=== PATIENT | female | born 1980 | race Caucasian/White ===

== ENCOUNTER 2016-03-26 03:15 | Day surgery (SDC) | payer OTHER ==
[2016-03-26] VITALS (14 sets, daily range): BP systolic 115–147; BP diastolic 55–87; PULSE 64–117; RESP 12–24; O2SAT 94–100
[~2016-03-26] VITALS: Ht 162.6 cm; Wt 114.5 kg
[~2016-03-26 03:15] MED LIST: AMT25T PO; ATOR80TA PO; CYCL10TA9 PO; HYDR-4003 PO; INSU100I SQ; INSU300I SQ; LEVO200T6 PO; LEVO50TA6 PO; LISI-567 PO; LORA-303 PO; METO50TA7 PO; PANT40TA3 PO; VENL150T3 PO
[2016-03-26 10:08] LABS: BASOPHILS % (AUTO) 0.3 % (0-3); EOSINOPHILS % (AUTO) 0.7 % (0-5); MONOCYTES % (AUTO) 4.6 % (4-12); Mean Corpuscular Hemoglobin 30.2 pg (27.0-35.0); Mean Corpuscular Volume 89.5 fL (81-100); NEUTROPHILS % (AUTO) 75.3 % (40-74); Platelet Count 291 bil/L (150-400)
[2016-03-26 10:23] LABS: INR 0.88 ratio
--- NOTE | 2016-03-26 10:53 | NUR ---
Admit [facility] Admitted to [facility] 7 about 929. VSS. Denies pain. IV started in left arm and labs sent. IVT called after 2 attempts on second IV. See EMR for admit info and assessment. Procedure and recovery reviewed and verbalizes understanding. 16 fr cordero placed per order and protocol. Tele ST. BG 301 stated was low at 70 around 0200 and had a few bites of ice cream which put her over 400. Took 15 units of short acting insulin, states is ok for now. Awaiting clinical lab specialist.
[2016-03-26] MEDS: 0.9% Sodium Chloride 1,000 ML IV SCH ×2 (11:41→17:55)
[2016-03-26] MEDS ORDERED: Heparin 5,000 Units/500 mL NS Premix IV ONE ×2 (11:42→14:39)
[2016-03-26] MEDS ORDERED: fentaNYL-PF 50 mCg/mL 2 mL Inj ONE ×5 (12:27→15:27)
[2016-03-26] MEDS ORDERED: Isoproterenol 200 mCg/50 mL D5W IV IV ONE (13:47)
[2016-03-26] MEDS ORDERED: Vancomycin 1,000 mg/200 mL D5W IV ONE (14:38)
[2016-03-26] MEDS ORDERED: 0.9% Sodium Chloride 0 ML ONE (14:39)
[2016-03-26] MEDS ORDERED: Bupivacaine-MPF 0.5% 30 mL Inj ONE (14:40)
[2016-03-26] MEDS ORDERED: 0.9% Sodium Chloride 250 ML ONE (14:40)
[2016-03-26] MEDS ORDERED: Vancomycin 1,000 mg Inj ONE (14:42)
[2016-03-26] MEDS ORDERED: Water for Injection 50 ML IV ONE (14:42)
[2016-03-26] MEDS ORDERED: Ondansetron 2 mg/mL 2 mL Inj IVPUSH PRN (15:40)
[2016-03-26] MEDS: HYDROcodone-APAP 5-325 mg Tablet PO PRN ×2 (16:19→20:53)
--- NOTE | 2016-03-26 16:47 | PROCED ---
[address] [address] PROCEDURE NOTE PATIENT: KAYLEE TURNER : 1980 MR#: [id number] ADMIT: 03/26/2016 JOB ID: [id number] DATE OF SERVICE: 03/26/2016 PREOPERATIVE DIAGNOSIS(ES): Drug refractory symptomatic paroxysmal supraventricular tachycardia. POSTOPERATIVE DIAGNOSIS(ES): 1. Atrioventricular node reciprocating tachycardia. 2. Two-to-one AV block. PROCEDURES PERFORMED: 1. Comprehensive electrophysiology study with left atrial pacing recording via the coronary sinus catheter. 2. Three-dimensional electroanatomic mapping using the CARTO 3 system. 3. Slow pathway modification (supraventricular tachycardia ablation). 4. Fluoroscopy. SURGEON: Lowell Del Valle MD PLASTICS SPREADING MACHINE OPERATOR: 1. Eddi Jansen PA-C 2. Victor Hugo Sanders. 3. Elena Camejo. SEDATION: Gentle bolus dosing of Versed and fentanyl were utilized for an appropriate level of sedation. INDICATION: The patient is a pleasant 36-year-old with a structurally normal heart and recurrent supraventricular tachycardia. After discussion of the risks and benefits of catheter-based mapping ablation, she opted to proceed. PROCEDURAL DESCRIPTION: Following informed consent, the patient was taken to the EP laboratory in a fasting nonsedated state where she was prepped in the usual sterile fashion. The bilateral groins were infiltrated with 1% lidocaine; then, using modified Seldinger technique, a deflectable decapolar catheter was advanced to the coronary sinus with the most proximal bipolar at the os of the sinus. A quadripolar Pooja catheter was advanced to the RV apex and a CRD 2 quadripolar catheter was advanced to the His position. A comprehensive electrophysiology study was undertaken with right atrial pacing and recording, right ventricular recording, His bundle recording, left atrial pacing and recording via the coronary sinus catheter. Retrograde conduction showed a concentric atrial activation pattern without retrograde jump and antegrade conduction showed an antegrade jump and ultimately induction in the patient's clinical tachycardia. This was a regular narrow tachycardia at a tachycardia cycle length of 288 msec, with a VA time of 0 msec induced with an antegrade jump. RV apical pacing lead to a long PPI minus TCL of 177 msec, with a pseudo VAAV response. This was consistent with AV lin reentrant tachycardia. We, therefore, prepared for slow pathway modification. An F curve 4 mm ablation catheter was brought to the field and used to create a three-dimensional electroanatomic map of the right atrium, tricuspid anulus, and triangle of Coe. Ablation lesions were placed at the base of the triangle of Coe in the region of the slow pathway, with the last burn ultimately leading to multiple conducted junctional beats. During the last burn there was one nonconducted beat. We came off immediately and despite this had complete heart block during which we monitored the patient for approximately an hour. Eventually she regained 2:1 conduction. We therefore decided to not proceed with pacemaker implant and just monitor her overnight and reassess her conduction in the morning. All catheters and sheaths were removed. Manual pressure was held for hemostasis. The patient was transferred to the [facility] and ultimately upstairs for monitoring. COMPLICATIONS: Potential AV block. ESTIMATED BLOOD LOSS: 10-15 cc. FINDINGS: 1. Baseline rhythm is sinus with an RR interval of 502 msec, ME 150 msec, QRS 87 msec, QT 442 msec. 2. Intracardiac intervals: AH interval 688 msec, HV 31 msec. Post ablation her AH is 79 msec and HV 38 msec. 3. Retrograde conduction: VA Wenckebach is seen. VA conduction is 1:1 down to 300 msec. Atrial activation was concentric. 4. Antegrade conduction: AV Wenckebach not attained due to the patient's going into clinical tachycardia. 5. Clinical tachycardia consistent with AV node reentrant tachycardia as described above, status post slow pathway modification. 6. AV conduction 2:1. IMPRESSION: Successful slow pathway modification with emergence of 2:1 block. PLAN: 1. Bed rest x4 hours. 2. Monitoring overnight. If no resumption of 1:1 conduction, we will recommend dual-chamber pacemaker implantation. 3. Discontinue all beta blockade. ATTENDING STATEMENT: Lowell Del Valle MD, electrophysiology attending, was present for and supervised/performed all aspects of this procedure.
--- NOTE | 2016-03-26 16:55 | NUR ---
Received Received from manager laboratory at 1600. VSS. manager laboratory reports as 2:1 conduction. Bilateral groins without bleeding or hematoma. C/O 9/10 back pain. Vicodin 2 po given and dozing intermittently. Thomason intact and draining hazy yellow urine with mucus threads. Yeasty red rash noted in groins and fold of pannus. Between 1615 and [address] in 1 teens. Continue to monitor per orders.
--- NOTE | 2016-03-26 18:31 | NUR ---
Recovery/Transfer Groins and VS remained stable. IVs saline locked. Taking po fluids well. Vicodin not very helpful. Dr. Del Valle notified and Morphine 2 mg IVP ordered and given with pain down to a more tolerable 5/10. Report called to Maite Urban RN. Transferred to 2026 via bed by staff at 1755 with all belongings in no distress. Family notified of room before they left. See EMR for further info and assessment.
--- NOTE | 2016-03-26 18:50 | NUR ---
Arrived She arrived from [facility] to [facility] 2026 about 1800. Report taken from Leana ELIZABETH in [facility]. She was placed on telemetry: Sinus rhythm 100s. She was c/o 6/10 pain in her back and bilateral groin sites from being on bedrest post-procedure. Gave her 600 mg of Ibuprofen. Her dinner arrived and she is enjoying it now. Bilateral groin sites dry and intact. She has some blood from old drainage. Told her we would get her all cleaned up once she is off of bedrest and able to get up and move around. She is requesting that the Thomason be taken out at that time. statement processor notified. Care continues.
[2016-03-26] MEDS ORDERED: Glucose 40% Oral Gel 15 Gm Tube PO PRN (19:05)
[2016-03-26] MEDS: Pantoprazole 40 mg ER24 Tablet PO SCH (20:54)
[2016-03-26] MEDS: Insulin GLARgine 100 Unit/mL Syringe SUBQ SCH (21:00)
[2016-03-26] MEDS: Insulin LISPRO 300 Unit/3 mL Inj SUBQ SCH (21:01)
[2016-03-26] MEDS: LORazepam 1 mg Tablet PO SCH (21:45)
[2016-03-27] VITALS (16 sets, daily range): BP systolic 99–140; BP diastolic 51–80; PULSE 48–119; RESP 14–20; O2SAT 95–100
[2016-03-27] MEDS: 0.9% Sodium Chloride 1,000 ML IV SCH ×5 (02:04→22:45)
[2016-03-27] MEDS: HYDROcodone-APAP 5-325 mg Tablet PO PRN ×2 (04:05→20:13)
--- NOTE | 2016-03-27 05:55 | NUR ---
Tachycardia / 2nd Degree HB /3rd Degree HB/ Bradycardia Tele ST with HR sustaining in the 110s since Pt returned from [facility] after a Cardiac ablation. Dr. Varma notified and aware of HR with no new orders at this time. Around 2339 HR dropped into the 50-60s Pt converted into 2nd degree HB with 2:1 conduction, then continued with HR in the 50s. Dr Varma notified of Telemetry changes. Temporary external pacer pads placed on Pt and connected to Zoll monitor in the room. Pt made NPO after 0200 for possible Pacemaker placement tomorrow 03/27/16. Then around 0226 Pt went into 3rd degree HB with HR 40-50s. IV NS @ 100 mls/hour restarted. VS hypotensive but stable, with SBPs in the 99-101's. Pt denies chest pain. Bilateral groin sites stable, pedal pulses palpable.
[2016-03-27] MEDS: LORazepam 1 mg Tablet PO SCH ×4 (07:41→20:12)
[2016-03-27] MEDS: Venlafaxine XR 75 mg ER24 Capsule PO SCH (07:41)
[2016-03-27] MEDS: Insulin LISPRO 300 Unit/3 mL Inj SUBQ SCH ×4 (07:47→20:15)
[2016-03-27] MEDS: Pantoprazole 40 mg ER24 Tablet PO SCH ×2 (10:55→20:31)
[2016-03-27] MEDS ORDERED: 0.9% Sodium Chloride 1,000 ML ONE (15:40)
[2016-03-27] MEDS ORDERED: 0.9% Sodium Chloride 250 ML ONE (15:40)
[2016-03-27] MEDS ORDERED: 0.9% Sodium Chloride 500 ML ONE (15:40)
[2016-03-27] MEDS ORDERED: Bupivacaine-MPF 0.5% 30 mL Inj ONE (15:41)
[2016-03-27] MEDS ORDERED: Heparin 1,000 Unit/mL 10 mL Inj ONE (15:41)
[2016-03-27] MEDS ORDERED: Heparin 5,000 Units/500 mL NS Premix IV ONE (15:42)
[2016-03-27] MEDS ORDERED: Vancomycin 1,000 mg/200 mL D5W IV ONE (15:49)
[2016-03-27] MEDS ORDERED: Vancomycin 1,000 mg Inj ONE (15:51)
[2016-03-27] MEDS ORDERED: fentaNYL-PF 50 mCg/mL 2 mL Inj ONE ×2 (16:35→17:29)
--- NOTE | 2016-03-27 18:41 | NUR ---
Fish Receiver/Retention She has been trying to urinate a couple of times today without success. Bladder scan about 1530 revealed 530 mls of urinary retention. She said she felt like she needed to urinate, but did not feel unusually uncomfortable. She was taken to slab lifting engineer at 1620 to get a pacemaker placed. Called down to [facility] to give report and asked if they could place a Thomason or talk to the Doctor about the retention while she was there. They said they would take care of it. Care continues.
--- NOTE | 2016-03-27 18:46 | NUR ---
Pt had not put out any urine. Around 1530 bladder scanned to volume of 530ml. Pt left for pacemaker at 1630. To drain urine during procedure. Addendum: 03/27/16 at 1848 by THOMPSON GAFFNEY CNA Amended: Links added.
--- NOTE | 2016-03-27 18:51 | OP ---
[address] [address] OPERATIVE REPORT PATIENT: KAYLEE TURNER : 1980 MR#: [id number] ADMIT: 03/26/2016 JOB ID: [id number] DATE OF SURGERY: 03/27/2016 PREOPERATIVE DIAGNOSIS(ES): Complete heart block. POSTOPERATIVE DIAGNOSIS(ES): Complete heart block. PROCEDURES PERFORMED: 1. Dual-chamber pacemaker implantation. 2. Left upper extremity venogram. 3. Fluoroscopy. SURGEON: Lowell Del Valle MD, electrophysiology. MANAGER OF INTERNATIONAL: Eddi Jansen PA-C. IMPLANTED DEVICES: 1. [employer] pulse generator, model TS3154, serial #[id number]. 2. Right atrial lead [employer] 2088TC 46 cm, serial #[id number]. 3. RV lead [employer] 2088TC 52 cm, serial # [id number]. ANESTHESIA: Bolus dosing of Versed and fentanyl were utilized for an appropriate level of sedation. INDICATIONS: The patient is a pleasant 36-year-old woman with a structurally normal heart and recurrent highly symptomatic SVT for which she underwent slow pathway modification yesterday. As a complication she developed complete heart block and comes down for a dual-chamber pacemaker implantation after discussion of the risks and benefits of implant. PROCEDURAL DESCRIPTION: Following informed signed consent, the patient was taken to the EP laboratory in the fasting nonsedated state, where she was prepped in the usual sterile fashion. The left infraclavicular region was infiltrated with 40 cc of a 50/50 mixture of bupivacaine and lidocaine. Once adequate anesthesia had been achieved, a 3 cm transverse incision was performed 2 cm below the clavicle. Dissection was carried down to the pectoralis fascia and a pocket was then fashioned using a combination of electrocautery and blunt dissection. Once adequate hemostasis had been achieved, attempts to access the left axillary vein were unsuccessful with a micropuncture needle. A left upper extremity venogram was performed. Under radiographic guidance, the vessel was cannulated to deploy a 0.035, 3 mm J guidewire. Attempts to recannulate the vessel were unsuccessful. I therefore double wired this access point to deploy two 0.035, 3-mm J-guidewires. Over the first of these, a 6-Singaporean tear-away sheath was advanced. Once the guidewire was removed, an active fixation wire was advanced to the RV outflow tract and ultimately the RV apex. The lead was affixed in position using associated active fixation screw. It was connected to the external analyzer and demonstrated appropriately sensed R waves, impedance, and capture threshold. The lead was checked to 10 V and there was no evidence of diaphragmatic stimulation. Attention was now paid to placement of the right atrial lead. Over the previously deployed J guidewire, another 6-Singaporean tear-away sheath was advanced. Once the guidewire was removed, an active fixation wire was advanced to the right atrial appendage and was affixed in position using associated active fixation screw. The lead was connected to the external analyzer and demonstrated appropriately sensed P waves, impedance, and capture threshold was checked to 10 V and there was no evidence of diaphragmatic stimulation. Once the position redundancy of the leads was confirmed with multiple fluoroscopic views, the leads were anchored to the prepectoralis fascia using their associated anchoring sleeves and sutures. The pocket was then copiously irrigated with antibiotic solution. The leads were connected to a generator and the generator was placed into the pocket and was affixed to the floor of the pocket using 1-0 Ti-Cron suture. The incision was then closed with running layers of absorbable suture. The wound was dressed with skin adhesive and a small dressing at the end the procedure. The needle, sponge, and instrument counts were all correct. COMPLICATIONS: None. BLOOD LOSS: Negligible. DEVICE MEASURED DATA: 1. Right atrial lead 2.1 mV, 490 ohms, 1.5 V at 0.4 msec. 2. RV lead greater than 12 mV, 660 ohms 0.5 V at 0.4 msec. 3. Final parameters DDD 60-130 beats per minute. IMPRESSION: Successful dual-chamber pacemaker implantation. PLAN: 1. Stat portable chest x-ray. 2. PA and lateral chest x-ray in the morning. 3. Device interrogation. 4. IV vancomycin through tomorrow. 5. Doxycycline 100 mg p.o. daily x7 days. 6. Wound check in one week. ATTENDING STATEMENT: Lowell Del Valle MD, electrophysiology, was present for and supervised/performed all aspects of this procedure.
--- NOTE | 2016-03-27 20:00 | DRSVH ---
PROCEDURE: X-RAY CHEST ONE VIEW, PORTABLE ([id number]) INDICATIONS: For new leads placed TECHNIQUE: One view of the chest was acquired. COMPARISON: [facility], CR, XR CHEST 1VW (PORTABLE), 10/12/2015, 11:23. FINDINGS: Surgical changes and devices: Dual-lead cardiac pacer Lungs and pleura: No pleural effusions or pneumothorax. Lungs are clear. Mediastinum: Mediastinal contours appear normal. Heart size is normal. Bones and chest wall: No suspicious bony lesions. Overlying soft tissues appear unremarkable. IMPRESSION: No acute disease. No pneumothorax Dictated by: Олег Ventura M.D. on 03/27/2016 at 19:57 Approved by: Олег Ventura M.D. on 03/27/2016 at 19:58
--- NOTE | 2016-03-27 20:01 | NUR ---
[facility] To [facility] 9 from pharmacy laboratory technician PM placement at 1845. No bleeding or hematoma at left chest incision. Transferred back to room 2026 by bed at 1945. Report to receiving RN.
[2016-03-27] MEDS: Insulin GLARgine 100 Unit/mL Syringe SUBQ SCH (20:13)
[2016-03-27] MEDS: MeTOProlol XL 25 mg ER24 Tablet PO SCH (22:25)
[2016-03-28 00:31] VITALS: BP 143/88; PULSE 117; RESP 20; O2SAT 97
[2016-03-28] MEDS: HYDROcodone-APAP 5-325 mg Tablet PO PRN ×3 (00:35→14:07)
[2016-03-28 04:21] VITALS: PULSE 106
[2016-03-28 04:32] VITALS: BP 142/84; PULSE 110; RESP 16; O2SAT 99
[2016-03-28] MEDS ORDERED: Vancomycin Inj 1,000 MG in IV Premix 1 EACH IV ONE (06:10)
[2016-03-28] MEDS: Pantoprazole 40 mg ER24 Tablet PO SCH (06:37)
[2016-03-28] MEDS: LORazepam 1 mg Tablet PO SCH ×2 (06:37→11:42)
--- NOTE | 2016-03-28 06:45 | NUR ---
Pain Pt reports 8/10 L chest (at pacemaker site) surgical pain s/p Pacemaker placement. IV and PO meds given as ordered. Reports mostly tolerable pain relief. WIll continue to monitor. Care ongoing
[2016-03-28 08:00] VITALS: PULSE 100
[2016-03-28 08:53] VITALS: BP 134/85; PULSE 101; RESP 18; O2SAT 97
[2016-03-28] MEDS: Venlafaxine XR 75 mg ER24 Capsule PO SCH (08:59)
[2016-03-28] MEDS: MeTOProlol XL 25 mg ER24 Tablet PO SCH (08:59)
--- NOTE | 2016-03-28 09:20 | PCM.DIMED ---
Discharge Instructions Date of Service Mar 28, 2016 Dates of Hospitalization Discharge Diagnosis Discharge Diagnosis PSVT Post procedural heart block Diabetes Dual Chamber pacemaker Diet Heart Healthy, Diabetic Activity Other (Do not extend left elbow high above shoulder for one month. Do not lift , push or pull more than 10 lbs for one week. Do not sit in a bath tub, hot tub or pool for one week to prevent infection.) Call your provider Fever or Chills, Bleeding, Excessive diarrhea Patient Instructions Follow-up in: 1 week Mid-level Provider (F9): Eddi Jansen PA-C Follow-up with Mid-level in: 4 weeks Eddi Jansen PA-C Mar 28, 2016 09:20
[2016-03-28] MEDS ORDERED: HYDR-4003 PO (09:24)
[2016-03-28] MEDS ORDERED: DOXY100C2 PO (09:24)
[2016-03-28] MEDS: Insulin LISPRO 300 Unit/3 mL Inj SUBQ SCH ×2 (09:37→11:47)
[2016-03-28] MEDS: 0.9% Sodium Chloride 1,000 ML IV SCH (09:55)
--- NOTE | 2016-03-28 10:00 | DIS ---
[address] [address] DISCHARGE SUMMARY PATIENT: KAYLEE TURNER : 1980 MR#: [id number] ADMIT: 03/26/2016 JOB ID: [id number] DIS: DATE: 03/28/2016 REASON FOR ADMISSION: The patient was admitted for EP study and SVT ablation. CHIEF COMPLAINT: Recurrent symptomatic rapid tachycardia with near syncope and chest discomfort. BRIEF HISTORY: The patient is a 35-year-old woman with a structurally normal heart who has been dealing with highly symptomatic SVT for several months now. Her episodes have led to four ER visits, and her tachycardia is a narrow QRS, short RP arrhythmia with heart rates greater than 220 beats per minute. At baseline, she has normal sinus rhythm on EKG without pre-excitation. Her episodes do respond to adenosine, and she has been lightheaded and near syncopal with chest discomfort during arrhythmia. She was informed of the ablation procedure and wished to proceed with that. COURSE IN HOSPITAL: The patient was admitted through the [facility] and taken to the label operator, where she underwent a diagnostic EP study which revealed dual AV lin physiology, and ablation procedure was undertaken. During the procedure, a few seconds after the final ablation, she suddenly went into complete heart block. This continued for about 2 hours, and then she regained 1:1 AV conduction. However, during the night that followed, she again went into complete heart block. On the second day, she underwent a dual-chamber pacemaker implantation without incident. Today, her chest x-ray shows good lead positions and no pneumothorax. Device evaluation shows good atrial and ventricular capture and sensing thresholds. Arrhythmia has not recurred. She has some discomfort at the pacemaker site and also on the left femoral venous access site. She has had no bleeding. The patient has been ambulatory and will go home this afternoon after her father finishes with his dialysis. DISPOSITION: The patient was discharged home in good condition with a followup appointment at the [facility] office in one week. She was asked not to extend her left arm high above her left shoulder for one month and not to lift, push, or pull more than 10 pounds with the left arm for one month. She will follow her diabetic diet and take medications as prescribed. DISCHARGE MEDICATIONS: 1. Doxycycline 100 mg daily for one week. 2. Hydrocodone/acetaminophen 5/325 mg, one tablet q.4 h. p.r.n. pain, quantity 20 with no refills. 3. Amitriptyline 25 mg q.h.s. 4. Atorvastatin 80 mg daily. 5. Cyclobenzaprine 10 mg t.i.d. 6. Insulin NovoLog U-100 taken as directed. 7. Insulin glargine 300 units/mL, 50 units subcu at h.s. 8. Levothyroxine 200 mcg tablet once daily and levothyroxine 50 mcg tablet once daily together. 9. Lisinopril 20 mg daily. 10. Lorazepam 1 mg q.i.d. p.r.n. anxiety. 11. Pantoprazole 40 mg b.i.d. 12. Venlafaxine ER 150 mg daily. 13. Metoprolol has been stopped. FINAL DIAGNOSES: 1. Paroxysmal supraventricular tachycardia. 2. Postprocedural heart block. 3. Dual-chamber pacemaker implant. 4. Diabetes mellitus.
[2016-03-28 12:06] VITALS: BP 129/84; PULSE 103; RESP 18; O2SAT 96
--- NOTE | 2016-03-28 14:04 | DRSVH ---
PROCEDURE: X-RAY CHEST, TWO VIEWS ([id number]) INDICATIONS: For new lead placement TECHNIQUE: 2 views of the chest were acquired. COMPARISON: [facility], CR, XR CHEST 1VW (PORTABLE), 03/27/2016, 19:08. FINDINGS: Surgical changes and devices: Stable positioning of dual chamber left cardiac pacer. Lungs and pleura: No pleural effusions or pneumothorax. Lungs are clear. Mediastinum: Mediastinal contours are normal. Heart size is normal. Bones and chest wall: No suspicious bony abnormalities. Soft tissues appear unremarkable. IMPRESSION: Stable chest post pacer placement. Dictated by: Farhan Barrera RRA Interpreted: Lauren Garcia MD on 03/28/2016 at 14:03 Transcribed by: BUCK on 03/28/2016 at 14:03 Approved by: Lauren Garcia MD, PhD on 03/28/2016 at 17:26
--- NOTE | 2016-03-28 14:31 | NUR ---
Discharge Note: Discussed discharge instructions, medications and postpacemaker precautions with patient. Pt verbalized understanding of follow up appointments. Pt is able to ambulate and dress self without report of CP, SOB or palpitations. L chest incision and bilat groin sites are well approximated no bruising or oozing noted. c/o 6/10 L chest incision pain, Vicodin 5-325 Tabs PO X2 given. IV's DC'd intact by RN. Pt exited unit via WC with all personal belongings and was transported home by her father.
== END 2016-03-28 14:23 | disposition home or self-care (01) ==
LOC: SOUO 03:15 → EDSTATUS 13:51 → PCC 18:03 → SOUO 03-28 14:23
PROVIDERS: ATTEND Internal Medicine Cardiovascular Disease
DX: I47.1 Supraventricular tachycardia (principal); I97.89 Other postprocedural complications and disorders of the circulatory system, not elsewhere classified; I44.2 Atrioventricular block, complete; R55 Syncope and collapse; E10.42 Type 1 diabetes mellitus with diabetic polyneuropathy; F41.1 Generalized anxiety disorder; I25.10 Atherosclerotic heart disease of native coronary artery without angina pectoris; E03.9 Hypothyroidism, unspecified; Z79.4 Long term (current) use of insulin; F33.9 Major depressive disorder, recurrent, unspecified
CPT/HCPCS: 33208; 36415; 71010; 71020; 80048; 83036; 85025; 85610; 93005; 93613; 93621; 93653; 99152; 99153; C1730; C1732; C1769; C1785; C1892; C1898; J1200; J1644; J1815; J2060; J2250; J2270; J3010; J3370; J7030; J7040; J7050; Q9967

== ENCOUNTER 2016-05-20 13:41 | Inpatient (IN) | payer OTHER ==
[~2016-05-20] VITALS: Ht 162.6 cm; Wt 113.4 kg
[~2016-05-20 13:41] MED LIST changes: +DOXY100C2 PO; -METO50TA7 PO
[2016-05-20] MEDS ORDERED: Alum-Mag Hydrox-Simeth 30 mL Suspension PO PRN (15:35)
[2016-05-20 15:42] VITALS: BP 117/70; PULSE 104; RESP 20; O2SAT 98
--- NOTE | 2016-05-20 16:09 | PCM.HPMED ---
Subjective Date of Service May 20, 2016 Primary Provider: Admitting Physician: Artemio Narvaez MD Primary Care Physician: Arielle Aguilar DO Attending Physician: Artemio Narvaez MD Admit Status: Direct Admit, Admit to Red Team Chief Complaint: Transferred from [facility] due to perinephric abscess and bacteremia for AJIT. History of Present Illness: Background history 36-year-old lady with past medical history of type I diabetes, history of Graves ' disease, PTSD, anxiety, developed severely symptomatic SVT in September 2015. She underwent ablation on March [address] Del Valle at [facility], she had complete heart block and got dual chamber pacemaker on March 27 and discharged on doxycycline prophylaxis. She was doing well for few weeks after procedure. Around end of April she started to have malaise, generalized abdominal pain and vomiting and went to [facility] on April 28 and she was told to have infection of the kidney on CT scan and prescribed ciprofloxacin and discharged from emergency room. She continued to have the above symptoms on and off. She had an appointment with Dr. Del Valle on 05/06 echocardiogram which showed left ventricular dysfunction with EF 45-50%, NEW aortic insufficiency and mitral regurgitation also seen.She was seen by her PCP the next day on 05/07 and urinalysis checked and was negative. She was advised to discontinue ciprofloxacin due to continued nausea. 2 days after that she had worsening of her symptoms and was admitted to [facility] on 05/09 as DKA. She was discharged on 05/11 with no significant improvement of symptoms. She was again seen by cardiology on 05/13. She continued to have symptoms and went to [facility] on 05/15 and was admitted . Admitted for pyelonephritis and DKA with metabolic acidosis bicarbonate [address] scan revealed perinephritic abscess. She underwent right percutaneous drainage of abscess. MSSA growing both in blood and perinephritic abscess. Urinalysis and Urine culture has been negative. Due to this fact there was a concern for hematogenous spread of Infection from bacteremia from endocarditis/pacemaker lead infection to perinephritic area. ID Dr Ambrose was contacted by [facility] and patient transferred for AJIT and press set up person evaluation whether pacemaker needs to be removed. She has been on cefazolin 2 g every 8 hours for the past few days. She received few doses of vancomycin initially.she states she had episodes of palpitation after ablation and pacemaker. She denies having urinary symptoms . Initial CT report on 05/16 :multiloculated, 5.77.94.7 cm abscess involving's inferior pole of the right kidney and right perinephritic space, trace right pleural effusion Repeat CT today 05/20: Right pigtail drain, with a small amount of scattered residual fluid and inflammatory stranding, previous abscess is markedly decreased in size. Review of Systems: Comprehensive review of systems performed , pertinent positives and negatives included in history of present illness Allergies Coded Allergies: amoxicillin (Verified Allergy, Severe, SHORTNESS OF BREATH, 03/26/16) adhesive tape (Verified Allergy, Intermediate, REDNESS, 03/26/16) promethazine (Verified Allergy, Intermediate, SIDE EFFECTS JITTERY, ) Sulfa (Sulfonamide Antibiotics) (Verified Allergy, Mild, RASH, 03/26/16) acetaminophen (Verified Adverse Reaction, Intermediate, HALLUCINATIONS, VOMITING, 03/26/16) oxycodone (Verified Adverse Reaction, Intermediate, SIDE EFFECT HALLUCINATIONS AND VOMITING, 03/26/16) Home Medications Lantus 40 units in a.m. 50 units at bedtime NovoLog insulin sliding scale Amitriptyline 25 mg by mouth at bedtime Atorvastatin 80 mg by mouth daily Cyclobenzaprine 10 mg 3 times a day when necessary Levothyroxine 250 mcg daily Lisinopril 20 mg by mouth daily Lorazepam 1 mg every 8 hours when necessary for anxiety Pantoprazole 40 mg by mouth twice a day Venlafaxine ER 150 mg daily metoprolol 100 mg twice a day Currently on cefazolin and Dilaudid PMH Type I diabetes for 28 years Graves' disease 1991 PTSD/anxiety History of medication noncompliance SVT Anxiety Uterine fibroids hiatal hernia Surgical History Cholecystectomy Partial thyroidectomy Right oopherectomy Right abdominal hernia repair with appendectomy SVT ablation on 03/26/16 Pacemaker insertion 03/27/16 for complete heart block Right percutaneous nephrostomy few days ago Left foot surgery Family History Father with type II diabetes currently on dialysis. Mother had knee problems half brother had type I diabetes and at age 33 due to possible hypoglycemia Social History Occupation: she used to work at [employer] Alcohol Use: No Hx Substance Use: No Smoking Status: Never Smoker Exam Vital Signs Vital Sign - Last Date Time Temp Pulse Resp B/P Pulse Ox O2 Delivery O2 Flow Rate FiO2 05/20/16 15:42 36.7 104 20 117/70 98 Room Air Exam Gen. patient is lying comfortably in hospital bed HEENT: Head is normocephalic atraumatic, Pupils equal and reactive, extraocular movements intact, Lungs clear to auscultation bilaterally Heart regular rate and rhythm without murmurs gallops or rubs, clean and healed pacemaker site on left chest Abdomen soft nontender without hepatosplenomegaly. Right flank percutaneous drain in place with scanty purulent in bag Extremities pulses are present dorsalis pedis posterior tibialis and radial. tSkin is warm and dry there are no rashes, Psych alert and oriented to person place and time Neuro cranial nerves II through XII are grossly intact Lymph: There is no lymphadenopathy appreciated in the cervical supra infraclavicular regions : no cordero Lab and Diagnostics Cardiac Echo Impressions 05/06/16 Interpretation Summary The left ventricle is mildly dilated. Left ventricular systolic function is mild to moderately reduced. The ejection fraction is estimated to be 45-50%. There is significant hypokinesis of the mid and distal septum and apex in addition to the distal inferior wall. This may be related to RV apical pacing however it may also represent ischemia in the distribution of the LAD. This is new c/w the prior exam from 12/12/2015. There is a RA pacemaker lead identified however the RV lead is not well seen. No obvious vegetation seen. There is mild to moderate mitral regurgitation. There is mild to moderate aortic regurgitation. The AI jet is poorly visualized and it is difficult to preparation supervisor the cause and severety of the Aortic insufficency based on the current exam. The AI and MR were not seen on the prior exam. No other echocardiographic abnormalities seen. A AJIT exam would likely be beneficial in better evaluating the etiology and severity of the AI and MR as well as excluding a vegetation on the pacemaker leads if clinically appropriate. Assessment & Plan 36-year-old lady with past medical history of type I diabetes, history of Graves ' disease, PTSD, anxiety, SVT status post ablation, complete heart block status post pacemaker now presenting with perinephric abscess and bacteremia # Suspected endocarditis and pacemaker infection,acute,poa -Endocarditis/pacemaker infection seeding hematogenously to perinephric area is the most likely explanation given the fact: No urinary complaints , urine analysis and urine culture negative. NEW ONSET aortic insufficiency and mitral regurgitation with some systolic dysfunction seen on echo on 05/06. Unusual organism for UTI and perinephric abscess. Protracted/subacute course. - will continue cefazolin for now -ID consult Dr. Ambrose and cardiology consult for AJIT # MSSA Bacteremia -Management as above #Perinephric abscess status post percutaneous drain -Percutaneous drain care #Type I diabetes with recent DKA -Continue home Lantus 40 units in a.m. 50 units at bedtime -Sliding-scale # Recent SVT ablation # Recent pacemaker insertion for complete heart block #Hypothyroidism -Continue Synthroid 250 MCG daily -TSH requested #PTSD/anxiety -Continue home meds she verifies full code Patient admitted under inpatient status with expected length of stay > 2 midnights for severity of present symptoms, complexities of treatment plan and risk for adverse events Time spent 65 minutes reviewing chart and seeing patient copies to: Arielle Aguilar Melaku MD May 20, 2016 16:08
[2016-05-20] MEDS ORDERED: ASPI81TA3 PO (16:31)
[2016-05-20] MEDS ORDERED: METO-274 PO (16:31)
[2016-05-20 16:39] LABS: BASOPHILS % (AUTO) 0.2 % (0-3); EOSINOPHILS % (AUTO) 2.4 % (0-5); MONOCYTES % (AUTO) 8.9 % (4-12); Mean Corpuscular Hemoglobin 26.8 pg (27.0-35.0); Mean Corpuscular Volume 91.2 fL (81-100); NEUTROPHILS % (AUTO) 72.6 % (40-74); Platelet Count 392 bil/L (150-400)
[2016-05-20] MEDS ORDERED: Glucose 40% Oral Gel 15 Gm Tube PO PRN (16:40)
[2016-05-20 16:42] VITALS: PULSE 99
[2016-05-20 17:04] LABS: Magnesium 1.5 mg/dL (1.6-2.6)
[2016-05-20] MEDS: Insulin LISPRO 300 Unit/3 mL Inj SUBQ SCH ×2 (17:30→21:44)
[2016-05-20] MEDS ORDERED: HYDROmorphone 1 mg/mL Inj IVPUSH PRN (18:00)
[2016-05-20] MEDS ORDERED: Magnesium Sulf 2 Gm/50mL Water 2 GM in IV Premix 1 EACH IV ONE (18:15)
[2016-05-20] MEDS: CeFAZolin Inj 2 GM in IV Premix 1 EACH IV SCH (19:30)
[2016-05-20 20:00] VITALS: PULSE 101
[2016-05-20 20:06] VITALS: BP 111/72; PULSE 101; RESP 16; O2SAT 96
--- NOTE | 2016-05-20 20:07 | DRSVH ---
PROCEDURE: X-RAY CHEST ONE VIEW, PORTABLE ([id number]) INDICATIONS: OUTSIDE LINE PLACEMENT, CHECK PICC TECHNIQUE: One view of the chest was acquired. COMPARISON: [facility], CR, XR CHEST 2VW, 03/28/2016, 6:43. FINDINGS: Surgical changes and devices: Dual-lead cardiac pacer is unchanged. Lungs and pleura: No pleural effusions or pneumothorax. Lungs are clear. Mediastinum: Mediastinal contours appear normal. Heart size is mildly enlarged. Bones and chest wall: No suspicious bony lesions. Overlying soft tissues appear unremarkable. IMPRESSION: No acute cardiopulmonary findings. Dictated by: Rosi Dale M.D. on 05/20/2016 at 20:06 Approved by: Rosi Dale M.D. on 05/20/2016 at 20:06
[2016-05-20] MEDS ORDERED: CeFAZolin Inj 2 GM in IV Premix 1 EACH IV SCH (20:30)
[2016-05-20] MEDS: Pantoprazole 40 mg ER24 Tablet PO SCH (20:55)
[2016-05-20] MEDS: MeTOProlol XL 50 mg ER24 Tablet PO SCH (20:55)
[2016-05-20] MEDS: LORazepam 1 mg Tablet PO PRN (20:55)
[2016-05-20 21:04] LABS: APPEARANCE,URINE CLEAR (CLEAR,HAZY); COLOR,URINE YELLOW (YELLOW); OCCULT BLOOD,URINE TRACE (NEGATIVE); UROBILINOGEN,URINE NORMAL (NORMAL); YEAST,URINE MANY (NONE SEEN)
[2016-05-20] MEDS: Insulin GLARgine 100 Unit/mL Syringe SUBQ SCH (21:44)
[2016-05-20] MEDS: HYDROmorphone 1 mg/mL Inj IVPUSH PRN (22:20)
[2016-05-21] VITALS (8 sets, daily range): BP systolic 109–130; BP diastolic 64–82; PULSE 91–99; RESP 16–18; O2SAT 94–98
--- NOTE | 2016-05-21 00:26 | CONS ---
[address] [address] CONSULTATION REPORT PATIENT: KAYLEE TURNER : 1980 MR#: [id number] ADMIT: 05/20/2016 JOB ID: [id number] DATE OF SERVICE: 05/20/2016 INFECTIOUS DISEASE CONSULTATION: I thank Dr. Narvaez for this timely consult. REASON FOR CONSULTATION: High-grade staph bacteremia in the setting of a recent pacer placement with associated right perinephric abscess. HISTORY OF PRESENT ILLNESS: The patient is extremely unfortunate 36-year-old woman. She has underlying type 1 diabetes which is poorly controlled. In addition, she suffers from PTSD, anxiety, depression, and hypothyroidism. She had a history of SVT and she underwent an attempted ablation in late March. Unfortunately, she developed third-degree AV block after the SVT ablation trial and required the placement of a dual chamber pacer. She was eventually discharged at the end of March on doxycycline. She subsequently did fairly well for a while, but in mid April developed right flank pain, nausea, vomiting and malaise. An evaluation was done at [facility] and she was found by CT scan to have perinephric stranding and was thought to have pyelonephritis. She was started on Cipro, which she received for about 10 days. The Cipro was eventually discontinued last week after a followup visit yielded a negative urine culture and her primary care physician thought she had completed an adequate 10 day course of Cipro. While this was ongoing in early May, she had a followup with Cardiology and other repeat echo was done which showed a bit of aortic insufficiency, as well as some mild to moderate MR. She had been scheduled for followup echo as an outpatient but that was not done. Following the end of her ciprofloxacin therapy for presumed pyelonephritis, the patient developed increased nausea and vomiting, and was admitted to [facility] for three days between May 09 and May 11 for treatment of what was thought to be DKA. She felt a bit better after discharge on May 11, but then returned to [facility] with a glucose over 500 on May 15 and was readmitted. During her admission at [facility], additional investigations were done which disclosed an 8 x 5 cm right perinephric mass which appeared to be an abscess. On May 17 at [facility], Radiology placed a percutaneous drain into the right perinephric fluid collection, which yielded purulent material which turned out to be clindamycin resistant MSSA. At the same time, blood cultures were done which also grew clinda resistant MSSA. This morning, I was contacted by an [facility] physician for an informal over the telephone consult. I was quite concerned that this patient with a recently installed pacer and persistent malaise now has MSSA bacteremia, as well as having a perinephric abscess which apparently did not begin as a traditional UTI and that urinalysis was negative, and she did not have dysuria or other typical symptoms. This suggested to me that this was a hematologic process perhaps involving her pacer and/or valve with downstream seeding of the perinephric region rather than a urinary tract infection causing an abscess with subsequent bacteremia. On that basis, I recommended the patient be transferred here and we get additional blood cultures, as well as pursue a transesophageal echo. It is also notable the patient had an echo this morning just before she left [facility] and we have a read on that which showed some mild to moderate mitral regurg, but no additional aortic insufficiency and no obvious vegetation was found. PAST MEDICAL HISTORY: 1. Type 1 diabetes with hemoglobin A1c in 11-12 range. 2. PTSD. 3. Anxiety and depression. 4. Graves disease with subsequent treatment leading to hypothyroidism. 5. SVT diagnosed in 2016. 6. History of attempted ablation in late March 2016, with development of third-degree heart block and pacer requirement. SOCIAL HISTORY: The patient lives on [facility] with her father who is disabled by virtue of a stroke, as well as end-stage renal disease requiring dialysis. They also have dogs for pets. The patient was to a [place] man, which led to her moving to , but they subsequently and he has moved out of state. She does not smoke, nor does she drink. She is currently unemployed, though until fairly recently she was working at [employer]. FAMILY HISTORY: Negative for tuberculosis. REVIEW OF SYSTEMS: The patient currently does not have headache or visual complaint. She has no sore throat or trouble swallowing. No stiff neck. She is not short of breath, nor does she have chest pain, though she still has a residual tenderness around the site of her pacer placement, which seems a bit odd two months later. She has no significant nausea or vomiting. She obviously has some right flank pain at the site of a recent drain. She still has the drain in place into the perinephric abscess. She does not have a Thomason catheter at this time, and has no dysuria, urgency, or frequency. She has not had significant pain or swelling in her joints. The patient denies any paresthesias or dysesthesias compatible with peripheral neuropathy. She had fever and chills earlier in her course, but these have improved substantially and she no longer has those symptoms at this time. PHYSICAL EXAMINATION: Reveals a chronically ill-appearing woman who looks considerably older than her stated age of 36. She was just transferred here in the last few hours and we only have one set of vital signs. Temperature 36.7, pulse 100, respiratory rate 20, blood pressure 117/70, saturating well on room air. Her BMI is 42. Her mental status is clear, though I would call her mood depressed and her affect flat. Examination of the head reveals no evidence of trauma. Sinuses are nontender. Eyes with somewhat pale conjunctivae, but no conjunctival hemorrhages or injection is noted. Nose appears normal. Oral cavity without thrush or hairy leukoplakia. Neck is supple. There is no cervical or supraclavicular adenopathy to note. Lungs: Relatively clear anteriorly. Cardiac tones: Regular rate and rhythm. Mild tachycardia, but no murmur appreciated. The pacer is present in the left upper chest. The incision over the pacer is still erythematous, but there is no drainage. There is still a sense of perhaps some mild tenderness over the left upper chest pacer, which is a bit surprising, but there is no erythema or warmth, nor is there any sinus tract formation. The patient's abdomen is obese, soft and nontender without organomegaly. A right flank drain is present. No Thomason catheter. No suprapubic tenderness. Her extremities are free of edema or cellulitis. There is no petechia seen on the upper or lower extremities. There are no peripheral stigmata of endocarditis such as Janeway or Osler-type lesions on the hands, nor are there splinter hemorrhages. A PICC line is present in the left upper extremity. It is unclear if this was installed when she was still bacteremic, but that remains a possibility. Neurologically, the patient is intact. There is no evidence for peripheral neuropathy, nor is there focal weakness. LABORATORIES: Include white count 8400 here, normal differential, platelet count 392. Creatinine 0.68. AST and ALT are normal at 17 and 10 respectively. Total bilirubin 0.2, alk phos 192, albumin 2.6. Micro studies here consist of two sets of blood cultures which are pending. The micro from [place] is much more interesting. On May 17, the patient's abscess grew MSSA resistant to clindamycin. Blood cultures done the same day yielded Staph aureus, which was also MSSA resistant to clinda. It is out understanding by telephone with the [facility] that the blood cultures done on May 16 yielded Staph aureus, while those done on May 18 were negative, which is about the time the PICC was placed, however, we are waiting additional maturation of those cultures tomorrow. IMAGING: Includes an echo that was done today at [place]. That echo was read as a mild to moderate MR with ejection fraction 35% to 40%. The aortic insufficiency seen on the prior echo on May 06 has resolved. There are no definite valvular vegetations to be seen. Pacer leads are seen in the right ventricle. CT scan of the kidney done on May 17 shows right perinephric stranding with a 4 cm area of attenuation consistent with developing abscess. This is the area that underwent drainage subsequently on that same day. At the time of drainage, however, they estimated that the fluid collection was 3.4 x 4.6 cm in size, and a pigtail drain was placed at that time. A repeat CAT scan was done just today prior to her transfer, which shows a small area of residual fluid at the tip of the catheter. The abscess is much improved and a trace right pleural effusion is seen. IMPRESSION: This is a difficult case of a 36-year-old woman who has had symptoms of malaise, weakness and some right flank pain for a month or more before the discovery that she had a perinephric abscess back on May 17. This perinephric abscess yielded methicillin-sensitive Staphylococcus aureus, and this is always a great concern when a person has a renal infection due to Staph aureus is it strongly suggests the possibility of bacteremia. In this case, we do have proof of bacteremia based on the blood cultures done on May 16 and May 17 in [place], and this raises additional concerns about the safety of her pacer as she has apparently been bacteremic for some period of time with the pacemaker in place. The initial transthoracic echo done on May 06, as well as the followup done today, do not show clear-cut evidence of valvular lesions, but this is very insensitive in a morbidly obese woman such as this. Additionally, we are concerned of course about the pacer wires as well as the generator pocket of the pacer itself. Review of literature suggested 30% or more of the time when there is a Staph aureus bacteremia in a pacer in place, that the pacer itself is infected either in the generator pocket or in the leads or both. This patient likely had a sustained bacteremia before it was detected a few days ago back at [facility] and has a large, presumably metastatic focus of infection in her right perinephric area, which also attests to the chronicity and severity of this bacteremia. RECOMMENDATIONS: 1. Serial blood cultures will be done until they are negative. 2. If multiple blood cultures continue to turn positive, the peripherally inserted central catheter line may be to be removed and replaced. 3. A transesophageal echocardiogram is indicated at this time to evaluate the pacer leads, as well as the valves. 4. Cefazolin is an appropriate agent in this patient, 2 g IV q.8 h., and will probably be needing a very prolonged course of therapy. 5. We plan to discuss this case with Dr. Del Valle and the Cardiology team tomorrow after the AJIT is available. Even if the AJIT does not show valvular vegetations or obvious involvement of the pacer leads, we may still be forced to remove and eventually replace the pacer out of concerns that it is secondarily infected. Thank you very much for allowing us to become involved in this most interesting case.
[2016-05-21] MEDS: Dextrose 5% 0.45% NaCl 1,000 ML IV SCH ×2 (00:30→07:35)
[2016-05-21] MEDS: HYDROmorphone 1 mg/mL Inj IVPUSH PRN ×7 (01:31→22:41)
[2016-05-21] MEDS: CeFAZolin Inj 2 GM in IV Premix 1 EACH IV SCH ×3 (03:59→19:37)
[2016-05-21 08:15] LABS: BASOPHILS % (AUTO) 0.1 % (0-3); EOSINOPHILS % (AUTO) 1.9 % (0-5); MONOCYTES % (AUTO) 8.1 % (4-12); Mean Corpuscular Hemoglobin 26.6 pg (27.0-35.0); Mean Corpuscular Volume 90.6 fL (81-100); NEUTROPHILS % (AUTO) 78.4 % (40-74); Platelet Count 342 bil/L (150-400)
[2016-05-21 08:40] LABS: Magnesium 1.8 mg/dL (1.6-2.6); Phosphorus 3.1 mg/dL (2.5-4.9)
[2016-05-21 08:57] LABS: ERYTHROCYTE SEDIMENTATION RATE > 140 mm/hr (0-32)
[2016-05-21] MEDS: Venlafaxine XR 75 mg ER24 Capsule PO SCH (09:46)
[2016-05-21] MEDS: Insulin LISPRO 300 Unit/3 mL Inj SUBQ SCH ×4 (09:47→21:31)
[2016-05-21] MEDS: Pantoprazole 40 mg ER24 Tablet PO SCH ×2 (09:47→22:37)
[2016-05-21] MEDS: MeTOProlol XL 50 mg ER24 Tablet PO SCH ×2 (09:47→22:38)
[2016-05-21] MEDS: Insulin GLARgine 100 Unit/mL Syringe SUBQ SCH ×2 (09:48→22:39)
--- NOTE | 2016-05-21 14:16 | PCM.PNMED ---
Subjective Date of Service May 21, 2016 Subjective Right flank pain controlled. Afebrile. Awaiting AJIT Exam Vital Signs Vital Sign - Last Date Time Temp Pulse Resp B/P Pulse Ox O2 Delivery O2 Flow Rate FiO2 05/21/16 10:26 96 05/21/16 09:06 36.7 18 116/80 94 Room Air Intake and Output 05/20/16 05/20/16 05/21/16 Cumulative From/Thru 15:00 23:00 07:00 05/20/16 15:41 - 05/21/16 06:18 Intake Total 0 ml 900 ml 900 ml Output Total 10 ml 660 ml 670 ml Balance -10 ml 240 ml 230 ml Intake Oral 0 ml 900 ml 900 ml Output Urine Total 0 ml 650 ml 650 ml Drainage Total 10 ml 10 ml 20 ml # Voids 2 2 # Bowel Movements 0 0 Exam Gen. patient is lying comfortably in hospital bed HEENT: Head is normocephalic atraumatic, Pupils equal and reactive, extraocular movements intact, Lungs clear to auscultation bilaterally Heart regular rate and rhythm without murmurs gallops or rubs, clean and healed pacemaker site on left chest Abdomen soft nontender without hepatosplenomegaly. Right flank percutaneous drain in place with scanty purulent in bag Extremities pulses are present dorsalis pedis posterior tibialis and radial. Skin is warm and dry there are no rashes, Psych alert and oriented to person place and time Neuro cranial nerves II through XII are grossly intact Lymph: There is no lymphadenopathy appreciated in the cervical supra infraclavicular regions : no cordero IVs and Medications Medications Reviewed: Medications were reviewed in detail Lab and Diagnostics Result Diagram: 05/21/16 0800 05/21/16 0800 Cardiac Echo Impressions 05/06/16 Interpretation Summary The left ventricle is mildly dilated. Left ventricular systolic function is mild to moderately reduced. The ejection fraction is estimated to be 45-50%. There is significant hypokinesis of the mid and distal septum and apex in addition to the distal inferior wall. This may be related to RV apical pacing however it may also represent ischemia in the distribution of the LAD. This is new c/w the prior exam from 12/12/2015. There is a RA pacemaker lead identified however the RV lead is not well seen. No obvious vegetation seen. There is mild to moderate mitral regurgitation. There is mild to moderate aortic regurgitation. The AI jet is poorly visualized and it is difficult to playground monitor the cause and severety of the Aortic insufficency based on the current exam. The AI and MR were not seen on the prior exam. No other echocardiographic abnormalities seen. A JAIT exam would likely be beneficial in better evaluating the etiology and severity of the AI and MR as well as excluding a vegetation on the pacemaker leads if clinically appropriate. Assessment & Plan 36-year-old lady with past medical history of type I diabetes, history of Graves ' disease, PTSD, anxiety, SVT status post ablation, complete heart block status post pacemaker now presenting with perinephric abscess and bacteremia # Suspected endocarditis and pacemaker infection,acute,poa -Endocarditis/pacemaker infection seeding hematogenously to perinephric area is the most likely explanation given the fact: No urinary complaints , urine analysis and urine culture negative all along. NEW ONSET aortic insufficiency and mitral regurgitation with some systolic dysfunction seen on echo on 05/06. Unusual organism for UTI and perinephric abscess. subacute course. -will continue cefazolin for now -ID consult Dr. Ambrose and cardiology consulted for AJIT -Cardiology and ID to decide whether to remove pacemaker after AJIT -ESR > 140 -Repeat blood culture pending, initial blood culture MSSA # MSSA Bacteremia -Management as above -Serial blood culture #Perinephric abscess status post percutaneous drain -Percutaneous drain care #Type I diabetes with recent DKA -Continue home Lantus 40 units in a.m. 50 units at bedtime -Sliding-scale # Recent SVT s/p ablation -telemetry # Recent pacemaker insertion for complete heart block #Hypothyroidism -Continue Synthroid 250 MCG daily -TSH requested #PTSD/anxiety -Continue home meds she verifies full code Disposition: Pending clinical course VTE Mechanical Devices: Intermittant Pneumatic CD Artemio Narvaez MD May 21, 2016 14:16
--- NOTE | 2016-05-21 15:12 | PROG NOTE ---
[address] [address] PROGRESS NOTE PATIENT: KAYLEE TURNER : 1980 MR#: [id number] ADMIT: 05/20/2016 JOB ID: [id number] DATE: 05/21/2016 REASON FOR FOLLOWUP: High-grade MSSA bacteremia with associated perinephric abscess in a patient who is recently status post pacer placement. INTERVAL HISTORY: Overnight, the patient reports continued pain in the right flank. She has not had overt fevers or chills, however, and she denies pleuritic chest pain or significant shortness of breath. She does note that her pacer still feels a little bit tender now, more than six weeks after it was placed, though there is no overt redness or drainage that she has noticed. No GI symptoms. PHYSICAL EXAMINATION: Reveals an afebrile woman, temp 36.7, pulse 94, respiratory rate 18, blood pressure 114/76. She is saturating well on room air. Examination of the head reveals no trauma. The oral cavity unremarkable. Lungs fairly clear. The pacer itself has still mild erythema along the incision line which is well approximated but not yet completely healed. The pacer itself is slightly tender to palpation back and forth, but there is no erythema or warmth. The abdomen is benign but there is right flank tenderness and a right flank drain is still present in the perinephric abscess. LABORATORIES: Include a white count 7900, platelet count 342, creatinine 0.55, albumin 2.2. Procalcitonin 0.08. Urinalysis 6-10 white cells. The urine culture here is negative so far. Blood cultures x2 are pending and they are remaining negative. Yesterday's chest x-ray shows no acute pulmonary infiltrates. IMPRESSION: This is a challenging case of a woman who had considerable right flank pain as well as some malaise and weakness and was discovered on May 17 at [facility] to have a perinephric abscess. A drain was placed and it grew methicillin-sensitive Staphylococcus aureus, but more importantly, blood cultures also grew MSSA. A transthoracic echo done at [place] yesterday did not show clear-cut involvement of a valve nor involvement of the pacer wires, but this is of course an insensitive test in this patient. We are concerned still that there is about a 30% chance that the patient has endocarditis or pacer infection or both. At this point, we are awaiting the transesophageal echo while we continue antibiotics. RECOMMENDATIONS: 1. Will continue to follow blood cultures until they are negative and repeat them as necessary. 2. A AJIT is scheduled for tomorrow to look at the pacer leads and the valves. 3. Will continue cefazolin 2 g q.8 until that time.
[2016-05-21] MEDS: LORazepam 1 mg Tablet PO PRN (22:38)
[2016-05-22] VITALS (11 sets, daily range): BP systolic 96–129; BP diastolic 51–83; PULSE 91–107; RESP 16–23; O2SAT 90–97
[2016-05-22] MEDS: HYDROmorphone 1 mg/mL Inj IVPUSH PRN ×7 (01:29→21:51)
[2016-05-22] MEDS: CeFAZolin Inj 2 GM in IV Premix 1 EACH IV SCH ×3 (03:04→19:46)
[2016-05-22] MEDS ORDERED: Lactated Ringer's 1,000 ML IV SCH ×2 (05:00→13:37)
[2016-05-22 06:52] LABS: BASOPHILS % (AUTO) 0.1 % (0-3); EOSINOPHILS % (AUTO) 2.8 % (0-5); MONOCYTES % (AUTO) 8.6 % (4-12); Mean Corpuscular Hemoglobin 26.3 pg (27.0-35.0); NEUTROPHILS % (AUTO) 70.1 % (40-74); Platelet Count 326 bil/L (150-400)
[2016-05-22 07:11] LABS: Magnesium 1.9 mg/dL (1.6-2.6)
[2016-05-22] MEDS: Insulin LISPRO 300 Unit/3 mL Inj SUBQ SCH ×4 (07:39→21:38)
--- OUTSIDE RECORDS SUMMARY | 2016-05-22 08:19 | XMS | Continuity of Care Document ---
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 N 05/15/16 8:04pm If No:+ Pt. declined information 05/15/16 8:04pm Chief Complaint and Reason for Visit Reason for Visit HIGH ANION GAP METABOLIC ACIDOSIS Problems Active Medical Problems Problem Onset Date Recorded Date Status Abdominal pain Unknown 10/18/15 Active High anion gap metabolic acidosis Unknown 05/15/16 Active Hyperglycemia Unknown 05/15/16 Active Dehydration Unknown 05/15/16 Active Medications Current Home Medications Medication Dose Units Route Directions Days/Qty Instructions Start Date AMITRIPTYLINE HCL 25 MG TABLET 25 MG ORAL At bedtime 30 05/20/16 ASPIRIN 81 MG TAB.CHEW 81 MG ORAL Every day Atorvastatin Calcium (LIPITOR) 80 MG TABLET 80 MG ORAL Every day CYCLOBENZAPRINE HCL 10 MG TABLET 10 MG ORAL 3 times daily Enoxaparin Sodium 40 MG/0.4 ML SYRINGE 40 MG SUB-Q 1600 30 05/20/16 Hydromorphone HCl 0 MG INTRAVEN Q4H PRN as needed for PAIN 60 1-2 MG 05/20/16 IBUPROFEN 200 MG TABLET 200 MG ORAL 3 times daily as needed for PAIN INSULIN GLARGINE 10ML (LANTUS) (Unknown Strength) VIAL 0 SUB-Q Twice daily Take 40 units AM and 50 units PM everyday. INSULIN GLULISINE (APIDRA SOLOSTAR PEN) 100 UNIT/1 ML INSULN.PEN 0 UNITS SUB -Q 3 times daily with meals Take 1 unit:3 carb ratio and sliding scale (CBG -150)/10with each meal. LEVOTHYROXINE SODIUM (LEVOXYL) 50 MCG TABLET 0.05 MG PER N/G TUBE Every day with 200 mcg daily LEVOTHYROXINE SODIUM (SYNTHROID) 200 MCG TABLET 0.2 MG ORAL Every day with 50 mcg tablet LISINOPRIL 20 MG TABLET 20 MG ORAL Every day LORAZEPAM 1 MG TABLET 1 MG ORAL At bedtime as needed for anxiety Metoprolol Succinate (METOPROLOL XL) 50 MG TAB.ER.24H 100 MG ORAL Twice daily 60 05/20/16 PANTOPRAZOLE SODIUM (PROTONIX) 20 MG TABLET.DR 40 MG ORAL Twice daily VENLAFAXINE HCL (EFFEXOR XR) 150 MG CAP.ER.24H 150 MG ORAL Every day Past Home Medications Medication Directions Ordered Status Amitriptyline Hcl 25 Mg Tablet Tablet, 50 Mg Oral At bedtime Unknown Discontinued Metoprolol Succinate (Metoprolol Xl) 50 Mg Tab.er.24h Tab.er.24h, 50 Mg Oral Twice daily Unknown Discontinued Social History Problem Response Recorded Date Street drug use? N 05/15/16 Alcohol Use? N 05/15/16 Support sources:+ Family, local 05/15/16 Have help at home after discharge? Y 05/15/16 Prior to this admission, the patient lived:+ WITH FAMILY 05/15/16 Query Response Start Date Stop Date Smoking status:+ Current every day smoker Hospital Discharge Instructions : [facility] Plan of Care Discharge Date 05/20/16 Disposition [facility] (02) Instructions/Education Provided [facility] ED Instruction Forms Provided Nursing info - Transfer Prescriptions See Medications Section Care Plan and Goals See Discharge Instructions section Functional Status Query Response Date Recorded Mobility:+ Minimum assist, 1 person May 20, 2016 8:00am Mobility:+ Stand-by assist May 20, 2016 8:00am Allergies, Adverse Reactions, Alerts Allergen Type Severity Reaction Status Last Updated Penicillins Allergy Unknown Active 10/18/15 oxycodone Allergy Unknown Active 10/18/15 sulfamethoxazole Allergy Unknown Active 10/18/15 trimethoprim Allergy Unknown Active 10/18/15 adhesive tape Allergy Unknown Active 10/18/15 amoxicillin Allergy Unknown Active 10/18/15 promethazine Allergy Unknown Active 10/18/15 Immunizations Name Date Given Type Influenza? (Seasonal)+ Yes Historical Date:* 12/16 Historical Lst Tetanus:* Historical Vital Signs Vital Reading Collection Date/Time Result Blood Pressure 05/20/16 12:41pm 120/65 Blood Pressure Source 05/19/16 8:30pm RUE LYING Patient Temperature 05/20/16 12:41pm 98.7 Temperature Source 05/19/16 8:30pm ORAL Respiratory Rate 05/20/16 12:41pm 20 Bedside Oxygen Availability 05/19/16 8:30pm ROOM AIR Pulse Rate 05/20/16 12:41pm 102 Pulse Location 05/19/16 8:30pm MONITOR Bedside Pulse Oximetry 05/20/16 8:00am 97 Height 05/18/16 6:00am 5 ft 4 in 162.56 cm Weight 05/18/16 6:00am 234 lb 106.3 kg Body Mass Index 05/18/16 6:00am 40.2 kg/m2 Results Laboratory Results Test Name Result Units Flags Reference Collection Date/Time Result Date/ Time Comments Blood Urea Nitrogen 8.0 mg/dL 7-05/19/16 6:25am 05/19/16 6:56am Creatinine 0.60 mg/dL 0.52-1.04 05/19/16 6:25am 05/19/16 6:56am Estimated GFR (MDRD) >60.0 mL/min >60 05/19/16 6:25am 05/19/16 6:56am ESTIMATED GFR: TO ESTIMATE THE GLOMERULAR FILTRATION RATE FOR - AMERICANS, MULTIPLY THE RESULTS PROVIDED BY 1.21. ESTIMATED GFR (EGFR) VALUES <60 ml/min/1.73m2 ARE INDICATIVE OF CHRONIC KIDNEY DISEASE. BUN/Creatinine Ratio 13.3 5.8-27.8 05/19/16 6:25am 05/19/16 6:56am Calcium Level 8.2 mg/dL L 8.4-10.2 05/19/16 6:25am 05/19/16 6:56am Glucose Level 312 mg/dL # H 79-115 05/19/16 6:25am 05/19/16 6:56am Sodium Level 137 mmol/L 137-145 05/19/16 6:25am 05/19/16 6:56am Potassium Level 4.2 mmol/L 3.5-5.1 05/19/16 6:25am 05/19/16 6:56am Chloride Level 102.0 mmol/L 98-107 05/19/16 6:25am 05/19/16 6:56am Carbon Dioxide Level 26.0 mmol/L 22-30 05/19/16 6:25am 05/19/16 6:56am White Blood Count 6.8 X10^3/uL 4.5-11 05/19/16 6:25am 05/19/16 6:41am Red Blood Count 3.45 X10^6/uL L 4.0-5.2 05/19/16 6:25am 05/19/16 6:41am Hemoglobin 9.5 G/DL L 12-16 05/19/16 6:25am 05/19/16 6:41am Hematocrit 29.6 % L 36-46 05/19/16 6:25am 05/19/16 6:41am Mean Corpuscular Volume 85.8 FL 80-100 05/19/16 6:25am 05/19/16 6:41am Mean Corpuscular Hemoglobin 27.4 PG 26-34 05/19/16 6:25am 05/19/16 6: 41am Mean Corpuscular Hemoglobin Concent 32.0 % 31-37 05/19/16 6:25am 6:41am Red Cell Distribution Width 15.3 % H 11.6-14.8 05/19/16 6:25am 05/19/16 6:41am Platelet Count 271 X10^3/uL 150-400 05/19/16 6:25am 05/19/16 6:41am Neutrophils % 74.4 % 50-75 05/19/16 6:25am 05/19/16 6:41am Absolute Neutrophil 5000 /uL 0628-7003 05/19/16 6:25am 05/19/16 6:41am Lymphocytes % 13.4 % L 25-40 05/19/16 6:25am 05/19/16 6:41am Monocytes % 9.5 % 3-14 05/19/16 6:25am 05/19/16 6:41am Eosinophils % 2.0 % 2-4 05/19/16 6:25am 05/19/16 6:41am Basophils % 0.7 % 0-2 05/19/16 6:25am 05/19/16 6:41am Prothrombin Time 15.5 SECONDS H 10.1-12.7 05/17/16 8:45am 05/17/16 9: 05am International Ratio (Anticoag Ther) 1.4 H 0.9-1.3 05/17/16 8:45am 9:05am INR THERAPUTIC RANGES: PREVENTION AND TREATMENT OF THROMBOEMBOLISM ASSOCIATED WITH: AF, PE, VT, POST-IN, BIPROSTHETIC HEART VALVES 2.0-3.0 MECHANICAL HEART VALVES 2.5-3.5 Enterococcus species (PCR) NOT DETECTED NOT DETECT 05/16/16 1:23pm 1:19am Listeria monocytogenes NOT DETECTED NOT DETECT 05/16/16 1:23pm 1:19am Staphylococcus species (PCR) DETECTED H NOT DETECT 05/16/16 1:23pm 1:19am Staphylococcus aureus (PCR)(LAB) DETECTED H NOT DETECT 05/16/16 1:23pm 05/18/16 1:19am RESULT CALLED PERSON OR PLACE CONTACTED: NR.[facility] WAS THE RESULT READ-BACK? YES DATE: 05/18/16 TIME: 0100 MRSA (TEM-PCR) NOT DETECTED NOT DETECT 05/16/16 1:23pm 05/18/16 1: 19am Streptococcus species (PCR) NOT DETECTED NOT DETECT 05/16/16 1:23pm 05/18/16 1:19am Group B Streptococcus (PCR) NOT DETECTED NOT DETECT 05/16/16 1:23pm 05/18/16 1:19am Streptococcus pneumoniae (PCR) NOT DETECTED NOT DETECT 05/16/16 1: 23pm 05/18/16 1:19am Streptococcus pyogenes (TEM-PCR) NOT DETECTED NOT DETECT 05/16/16 1: 23pm 05/18/16 1:19am Acinetobacter baumannii (TEM-PCR) NOT DETECTED NOT DETECT 05/16/16 1: 23pm 05/18/16 1:19am Enterobacteriaceae species (PCR) NOT DETECTED NOT DETECT 05/16/16 1: 23pm 05/18/16 1:19am Escherichia coli (PCR) NOT DETECTED NOT DETECT 05/16/16 1:23pm 1:19am Enterobacter cloacae complex (PCR) NOT DETECTED NOT DETECT 05/16/16 1: 23pm 05/18/16 1:19am Klebsiella oxytoca (PCR) NOT DETECTED NOT DETECT 05/16/16 1:23pm 1:19am Klebsiella pneumoniae (PCR) NOT DETECTED NOT DETECT 05/16/16 1:23pm 05/18/16 1:19am Proteus mirabilis (PCR) NOT DETECTED NOT DETECT 05/16/16 1:23pm 05/18 1:19am Serratia marcescens (PCR) NOT DETECTED NOT DETECT 05/16/16 1:23pm 1:19am Haemophilis influenzae (PCR) NOT DETECTED NOT DETECT 05/16/16 1:23pm 05/18/16 1:19am Neisseria meningitidis (PCR) NOT DETECTED NOT DETECT 05/16/16 1:23pm 05/18/16 1:19am Pseudomonas aeruginosa (TEM-PCR) NOT DETECTED NOT DETECT 05/16/16 1: 23pm 05/18/16 1:19am Thelma albicans (PCR) NOT DETECTED NOT DETECT 05/16/16 1:23pm 1:19am Thelma glabrata (PCR) NOT DETECTED NOT DETECT 05/16/16 1:23pm 1:19am Thelma krusei (PCR) NOT DETECTED NOT DETECT 05/16/16 1:23pm 1:19am Thelma parapsilosis (PCR) NOT DETECTED NOT DETECT 05/16/16 1:23pm 1:19am Thelma tropicalis (PCR) NOT DETECTED NOT DETECT 05/16/16 1:23pm 1:19am MRSA Surveillance Initial Negative for MRSA Negative 05/15/16 11:42pm 05/16/16 1:49am Thyroid Stimulating Hormone 3rd Gen 1.42 uIU/mL 0.47-4.68 05/15/16 8: 39pm 05/15/16 10:23pm Urine Marijuana (THC) Screen POSITIVE H NEGATIVE 05/15/16 4:30pm 05/15 6:16pm Urine Cocaine Screen NEGATIVE NEGATIVE 05/15/16 4:30pm 05/15/16 6: 16pm Urine Opiates Screen POSITIVE H NEGATIVE 05/15/16 4:30pm 05/15/16 6: 16pm Urine Amphetamine Screen NEGATIVE NEGATIVE 05/15/16 4:30pm 05/15/16 6 :16pm Urine Methamphetamines Screen NEGATIVE NEGATIVE 05/15/16 4:30pm 05/15 6:16pm Urine Phencyclidine Screen NEGATIVE NEGATIVE 05/15/16 4:30pm 6:16pm Urine MDMA Screen NEGATIVE NEGATIVE 05/15/16 4:30pm 05/15/16 6:16pm Urine Barbituates Screen NEGATIVE NEGATIVE 05/15/16 4:30pm 05/15/16 6 :16pm Urine Benzodiazepines Screen NEGATIVE NEGATIVE 05/15/16 4:30pm 6:16pm Urine Methadone Screen NEGATIVE NEGATIVE 05/15/16 4:30pm 05/15/16 6: 16pm Tricyclic Antidepressants Screen NEGATIVE NEGATIVE 05/15/16 4:30pm 6:16pm Urine Oxycodone Screen NEGATIVE NEGATIVE 05/15/16 4:30pm 05/15/16 6: 16pm The Rapid Drug Screen is a qualitative screening test for drug overdose and abuse. All screen results should be considered as presumptive. Positive results are unconfirmed. For confirmation notify the lab for the specimen to be sent to the Reference Lab. All confirmations must be performed by gc/ms methodology. Alkaline Phosphatase 240 U/L H 38-126 05/15/16 4:14pm 05/15/16 4:44pm Total Bilirubin 0.5 mg/dL 0.2-1.3 05/15/16 4:14pm 05/15/16 4:44pm Total Protein 7.5 g/dL 6.3-8.2 05/15/16 4:14pm 05/15/16 4:44pm Albumin 3.4 g/dL L 3.5-5.0 05/15/16 4:14pm 05/15/16 4:44pm Globulin 4.1 g/dL 1.7-4.1 05/15/16 4:14pm 05/15/16 4:44pm Albumin/Globulin Ratio 0.8 L 1-2.8 05/15/16 4:14pm 05/15/16 4:44pm Aspartate Amino Transf (AST/SGOT) 11 IU/L L 14-36 05/15/16 4:14pm 4:44pm Alanine Aminotransferase (ALT/SGPT) 7 IU/L L 9-52 05/15/16 4:14pm 4:44pm Magnesium Level 1.8 mg/dL 1.6-2.3 05/15/16 4:14pm 05/15/16 4:44pm Lipase 24 U/L 23-300 05/15/16 4:14pm 05/15/16 4:44pm Activated Partial Thromboplast Time 27 26.4-36.2 05/15/16 4:14pm 4:32pm Adjunctive to Coronary Thrombosis Heparin (0.1 - 0.3 UI/mL)=46.5 - 63.2 seconds Heparin (0.3 - 0.7 UI/mL)=63.2 - 102.2 seconds. Blood Gas Specimen Type LT RADIAL 05/15/16 3:47pm 05/15/16 4:08pm SURAJ TEST: PASS N/A RESP. THERAPIST 05/15/16 3:47pm 05/15/16 4:08pm FiO2 .21 05/15/16 3:47pm 05/15/16 4:08pm Arterial Blood pH 7.38 7.35-7.45 05/15/16 3:47pm 05/15/16 4:08pm Blood Gas PCO2 19.8 mmHg *L 35-45 05/15/16 3:47pm 05/15/16 4:08pm ABG WITH CRITICAL VALUE GIVEN TO DR HART AT 1553. Blood Gas PO2 108 mmHg H 80-105 05/15/16 3:47pm 05/15/16 4:08pm Blood Gas Base Excess -14.0 mmol/L L -2-3 05/15/16 3:47pm 05/15/16 4: 08pm Blood Gas Total CO2 12 mmol/L L 23-27 05/15/16 3:47pm 05/15/16 4:08pm Blood Gas HCO3 11.6 mmol/L L 22-26 05/15/16 3:47pm 05/15/16 4:08pm Above Infr Vena Cava O2 Saturation 98.0 % 95-100 05/15/16 3:47pm 4:08pm Urine RBC 1-5/HPF 1-5/HPF 05/15/16 3:30pm 05/15/16 4:53pm Urine Squamous Epithelial Cells 1-5/HPF 1-5/HPF 05/15/16 3:30pm 05/15 4:53pm Urine Crystal Identification AMORPHOUS 05/15/16 3:30pm 05/15/16 4: 53pm 2+ Urine Culture Indicated CULT. NOT INDICATED 05/15/16 3:30pm 4:53pm Urine will only be cultured if it meets one or more of the following criteria: (a) Specifically requested by the provider (b) Greater than 5 WBC's with <5 epithelial cells/hpf. (c) Positive nitrite. (Only if <5 epithelial cells/hpf). (d) Positive leukocyte esterase. (Only if <5 epithelial cells/hpf). NOTE: Greater than 5 epithelial cells/hpf indicates contamination which is not suitable for culture. Microbiology Results Procedure Source Result Collection Date/Time Result Date/Time Blood Culture Blood No growth. 05/19/16 2:57pm 05/20/16 3:01pm Aerobic Culture Wound Abscess Staphylococcus Aureus 05/17/16 12:00pm 05/19 10:02am Anaerobic Culture Wound Abscess No growth. 05/17/16 12:00pm 05/19/16 12: 00pm Procedures No Known History of Procedures. Encounters Encounter Location Arrival/Admit Date Discharge/Depart Date Attending Provider Discharged [facility] 05/15/16 2:37pm 05/20/16 2:40pm Kortney Yeung MD Encounter Diagnosis Onset Date High anion gap metabolic acidosis Hyperglycemia Dehydration
[2016-05-22] MEDS: Dextrose 5% 0.45% NaCl 1,000 ML IV SCH (08:36)
[2016-05-22] MEDS: Insulin GLARgine 100 Unit/mL Syringe SUBQ SCH ×2 (08:37→21:00)
[2016-05-22] MEDS ORDERED: Propofol 10,000 mCg/mL 20 mL Inj ONE (10:08)
[2016-05-22] MEDS ORDERED: Phenylephrine/NS 100 mCg/mL 10 mL Syringe IVPUSH ONE (10:08)
[2016-05-22] MEDS ORDERED: fentaNYL-PF 50 mCg/mL 2 mL Inj ONE (10:08)
--- NOTE | 2016-05-22 10:13 | PCM.PNMED ---
Subjective Date of Service May 22, 2016 Subjective left flank pain controlled with dilaudid,afebriel,awaiting AJIT,blood glucose 90 noted and lowered am Lantus to 20 from 40 Exam Vital Signs Vital Sign - Last Date Time Temp Pulse Resp B/P Pulse Ox O2 Delivery O2 Flow Rate FiO2 05/22/16 05:00 36.7 100 16 105/70 96 Room Air Intake and Output 05/21/16 05/21/16 05/22/16 Cumulative From/Thru 15:00 23:00 07:00 05/20/16 15:41 - 05/22/16 05:43 Intake Total 560 ml 577 ml 1252 ml 3289 ml Output Total 1005 ml 950 ml 2625 ml Balance 560 ml -428 ml 302 ml 664 ml Intake Oral 400 ml 1037 ml 2337 ml IV Total 560 ml 177 ml 215 ml 952 ml Output Urine Total 1000 ml 950 ml 2600 ml Drainage Total 5 ml 0 ml 25 ml # Voids 2 # Bowel Movements 0 0 0 Exam Gen. patient is lying comfortably in hospital bed HEENT: Head is normocephalic atraumatic, Pupils equal and reactive, extraocular movements intact, Lungs clear to auscultation bilaterally Heart regular rate and rhythm without murmurs gallops or rubs, clean and healed pacemaker site on left chest Abdomen soft nontender without hepatosplenomegaly. Right flank percutaneous drain in place with scanty purulent in bag Extremities pulses are present dorsalis pedis posterior tibialis and radial. Skin is warm and dry there are no rashes, Psych alert and oriented to person place and time Neuro cranial nerves II through XII are grossly intact Lymph: There is no lymphadenopathy appreciated in the cervical supra infraclavicular regions : no cordero IVs and Medications Medications Reviewed: Medications were reviewed in detail Lab and Diagnostics Result Diagram: 05/22/16 0430 05/22/16 0430 Cardiac Echo Impressions 05/06/16 Interpretation Summary The left ventricle is mildly dilated. Left ventricular systolic function is mild to moderately reduced. The ejection fraction is estimated to be 45-50%. There is significant hypokinesis of the mid and distal septum and apex in addition to the distal inferior wall. This may be related to RV apical pacing however it may also represent ischemia in the distribution of the LAD. This is new c/w the prior exam from 12/12/2015. There is a RA pacemaker lead identified however the RV lead is not well seen. No obvious vegetation seen. There is mild to moderate mitral regurgitation. There is mild to moderate aortic regurgitation. The AI jet is poorly visualized and it is difficult to feed handler the cause and severety of the Aortic insufficency based on the current exam. The AI and MR were not seen on the prior exam. No other echocardiographic abnormalities seen. A AJIT exam would likely be beneficial in better evaluating the etiology and severity of the AI and MR as well as excluding a vegetation on the pacemaker leads if clinically appropriate. Assessment & Plan 36-year-old lady with past medical history of type I diabetes, history of Graves ' disease, PTSD, anxiety, SVT status post ablation, complete heart block status post pacemaker now presenting with perinephric abscess and bacteremia # Suspected endocarditis and pacemaker infection,acute,poa -Endocarditis/pacemaker infection seeding hematogenously to perinephric area is the most likely explanation given the fact: No urinary complaints , urine analysis and urine culture negative all along. NEW ONSET aortic insufficiency and mitral regurgitation with some systolic dysfunction seen on echo on 05/06. Unusual organism for UTI and perinephric abscess. subacute course. -will continue cefazolin for now -ID consult Dr. Ambrose and cardiology consulted for AJIT -Cardiology and ID to decide whether to remove pacemaker after AJIT -ESR > 140 -Repeat blood culture pending, initial blood culture MSSA # MSSA Bacteremia -Management as above -Serial blood culture,no growth now #Perinephric abscess status post percutaneous drain -Percutaneous drain care #Type I diabetes with recent DKA -Continue home Lantus 40 units in a.m. 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
--- NOTE | 2016-05-22 11:37 | PROG NOTE ---
[address] [address] PROGRESS NOTE PATIENT: KAYLEE TURNER : 1980 MR#: [id number] ADMIT: 05/20/2016 JOB ID: [id number] DATE: 05/22/2016 INFECTIOUS DISEASE FOLLOW UP NOTE: REASON FOR FOLLOW UP: MSSA bacteremia with pacer in place. INTERVAL HISTORY: The patient reports that just this morning she has suffered a sudden onset of right lower pleuritic chest pain. She describes this as being just above the diaphragm on the right and much worse with inspiration. She has not had a pain like this before. She has no fevers or chills. No headache. No significant cough. Her pacer remains vaguely uncomfortable but not extremely so. No nausea, vomiting or diarrhea. She has no appetite. PHYSICAL EXAMINATION: The patient remains consistently afebrile, temperature now 37.1, pulse 94, respiratory rate 17, blood pressure 113/79, saturating well on room air. Examination of the eyes: No conjunctival hemorrhages. There is no peripheral stigmata of endocarditis on the hands. The patient's neck is supple. Lungs: Reasonably clear bilaterally though she is unable to take a very deep breath due to the new right pleuritic chest pain. Cardiac tones without significant murmur. The pacer remains very mildly tender perhaps to palpation. Abdomen entirely benign today. No tenderness. No skin rash. She has a right appearing nephric drain present. Labs include a white count of 6700, platelet count 326, creatinine 0.56. Alk phos is coming down. It is now 163. Albumin 2.2. Procalcitonin negative. Follow up blood cultures done the here are negative. Recall that she had prior MSSA positives at an outside facility. IMPRESSION: This is a case of a woman who presented with right flank pain and was found to have MSSA perinephric abscess as well as MSSA bacteremia at [facility]. A transthoracic echo was obtained on May 06 and May 20 and did not show any endocarditis or pacer involvement but, of course, this is not sensitive. We are concerned that she may have a right-sided endocarditis and/or pacer lead infection or even pacer generator infection at this point. Also of concern is the new onset of right pleuritic chest pain which raises the possibility of embolization to the lung. RECOMMENDATIONS: 1. Will continue to follow her negative blood cultures. 2. Continue with Ancef 2 g q.8 hours. 3. We await the AJIT. 4. If her pleuritic chest pain continues, we may need a CT scan of the chest to rule out the possibility of a septic emboli but I would wait on that until we have back our echo.
--- NOTE | 2016-05-22 13:37 | PCM.HPANE ---
Patient Data Surgeon Admitting Provider:Artemio Narvaez MD Attending Provider:Artemio Narvaez MD Primary Care Physician:Arielle Agiular DO Other Provider: Reason for Visit Bacteremia, Perinephric Abscess BACTEREMIA Ht/WT & BMI Height (Feet): 5 Height (Inches): 4.00 Weight (Kilograms): 110.500 Body Mass Index 41.59 Allergies Coded Allergies: amoxicillin (Verified Allergy, Severe, SHORTNESS OF BREATH, 03/26/16) adhesive tape (Verified Allergy, Intermediate, REDNESS, 03/26/16) promethazine (Verified Allergy, Intermediate, SIDE EFFECTS JITTERY, ) Sulfa (Sulfonamide Antibiotics) (Verified Allergy, Mild, RASH, 03/26/16) acetaminophen (Verified Adverse Reaction, Intermediate, HALLUCINATIONS, VOMITING, 03/26/16) oxycodone (Verified Adverse Reaction, Intermediate, SIDE EFFECT HALLUCINATIONS AND VOMITING, 03/26/16) Past Anesthesia History Anesthesia History: Denies:: Anesthesia Reactions Diabetes History Hx Diabetes?: Yes (type I) Current Bedside Blood Glucose: 90 MRSA MRSA: Yes ([id number]) Medications Reported Medications Aspirin Chew 81 Mg Chew81 Mg PO DAILY Ref 0 05/20/16 Metoprolol Succinate ER 100 Mg Tab.er.45h711 Mg PO BID #60 05/20/16 Venlafaxine ER 150 Mg Tab.er.70528 Mg PO DAILY Ref 0 03/25/16 Insulin Glargine,Hum.rec.anlog (Toujeo Solostar)300 Unit/Ml (1.5 Ml) Insuln.pen50 Unit SQ HS 03/25/[address] 40 Mg Tablet.dr40 Mg PO BID Ref 0 03/25/16 Insulin Aspart (NovoLOG U-100 Pen)100 Unit/Ml Insuln.pen1 Sq Asdirected 03/25/16 Lisinopril 20 Mg Esxpkj19 Mg PO DAILY 30 Days Ref 0 03/25/16 Levothyroxine 50 Mcg Antten18 Mcg PO DAILY Ref 0 03/25/16 Levothyroxine 200 Mcg Wjqsnv764 Mcg PO DAILY Ref 0 03/25/16 Cyclobenzaprine 10 Mg Wedgrq72 Mg PO TID PRN Spasm 03/25/16 Atorvastatin (Lipitor)80 Mg Bppgej32 Mg PO HS Ref 0 03/25/16 Lorazepam (Ativan)1 Mg Tablet1 Mg PO QID PRN For Anxiety Ref 0 03/25/16 Amitriptyline 25 Mg Tab25 Mg PO HS Ref 0 2-4 tablets PO at HS 03/25/16 Discontinued Scripts Hydrocodone-Acetaminophen 5-325 mg 1 Each Tablet1 Tablet PO Q4H PRN For Pain # 20 TABLET Ref 0 Prov:Eddi Jansen PA-C 03/28/16 Doxycycline Hyclate 100 Mg Zvwxcvl113 Mg PO DAILY #7 CAPSULE Ref 0 Prov:Eddi Jansen PA-C 03/28/16 History History of ENT Problems?: Yes HEENT History: Positive for:: Dysphagia Hx of Heart Problems?: Yes Cardiovascular History: Positive for:: Cardiac Surgery (Angiogram) Chest Pain Hypertension Irregular Heartbeat Pacemaker (Placed 03/27/2016 ) Denies:: Congestive Heart Failure Edema Heart Murmur Hx of Respiratory Problem?: Yes Respiratory History: Positive for:: Dyspnea (only during SVT) Pneumonia Denies:: Asthma Chest Surgery (Thyroid, neck) Tuberculosis Hx Neurologic Problems?: No Hx of GI Problems?: Yes Gastrointestinal History: Positive for:: Gastroesphageal Reflux Denies:: Diverticulitis Gastrointestinal Bleeding Hepatitis Hiatal Hernia Hx of Problems?: Yes Genitourinary History: Positive for:: Kidney Stones Urinary Tract Infection Female Hx: Positive for:: Endometriosis Denies:: Currently Pelvic Inflammatory Problems with Breasts? Hx Musculoskeletal Problems?: Yes Musculoskeletal History: Positive for:: Back Injury Denies:: Joint Replacement Hx of Psycho/Social Problems?: Yes Psycho Social History: Positive for:: Anxiety Hx Depression Suicide Attempt (1998) Hx Surgeries?: Yes (pacemaker, gallbladder) Hx Any Other Health Problems?: Yes Other History: Positive for:: Hospitalization Thyroid Disease Denies:: Cancer History Blood Transfusions: Positive for:: Accept Blood Products? Denies:: Blood Transfuse Reaction Blood Transfusions Hx Diabetes: Yes (type I)Bedside Blood Glucose: 90 Occupation: she used to work at [employer] Alcohol Use: NoHx Substance Use: No Smoking Status: Never Smoker Have You Smoked inLast 12 mo: No Stop/Bang Treated for Sleep Apnea?: No Do You Have a CPAP Machine?: No S-Snoring: Do You Snore Loudly: No T-Tired: feel tired, fatigued: Yes O-Obsered: Observed not breath: No P-Blood Pressure: treated: Yes B- Body Mass Index > 35 kg/m2: Yes A- Age over 50: No N- Neck Large Circumference: No G- Gender Male: No ANA MARIA Total Score: 4 Risk Assessment Category Category 1A: Patient has history of documented sleep apnea, and HAS NOT received any narcotic, sedative or anesthesia administration during this stay. Category 1B: Patient has history of documented sleep apnea, and HAS received any narcotic , sedative or anesthesia administration during this stay Category 2: Patient has SUSPECTED Obstructive Sleep Apnea, and HAS received any narcotic , sedative or anesthesia administration during this stay. Category 3: Patient has SUSPECTED Obstructive Sleep Apnea and HAS NOT received narcotic, sedative or anesthesia administration during this stay. Category 4: Outpatient in Procedural Areas with known sleep apnea or who screen positive for High Risk via the STOP/BANG questionnaire. Exam Exam Vital Signs Vital Signs Date Time Temp Pulse Resp B/P Pulse Ox O2 Delivery O2 Flow Rate FiO2 05/22/16 10:53 94 05/22/16 10:37 37.1 98 17 113/79 92 Room Air General Appearance: Alert, Oriented X3, Cooperative, No Acute Distress HEENT/AIRWAY: MP 3 Lungs: Clear to Auscultation, Diminished Heart: Exam Unremarkable Meds/Labs/Diagnostics Admission Meds Current Medications Dextrose/Sodium Chloride (D5 1/2 Normal Saline) 1,000 ml @ 75 mls/hr [id number] IV Last administered on 05/22/16t 08:36; Start 05/22/16 at 06:55 Bedside Blood Glucose: 90 Labs Test 05/20/16 16:25 05/20/16 17:00 05/20/16 20:42 05/21/16 08:00 Thyroid Stimulating Hormone (TSH) 3.320uIU/mL (0.450-4.500) Free Thyroxine 1.27ng/dL (0.82-1.77) Hold Purple Top Tube Received (Received) Hold [place] Top Tube Received (Received) Urine Color Yellow (YELLOW) Urine Appearance Clear (CLEAR,HAZY) Urine pH 6.0 (5.0-8.0) Urine Specific [place] 1.025 (1.003-1.035) Urine Protein Tracemg/dL (NEG,TRACE) Urine Glucose (UA) Negativemg/dL (NEGATIVE) Urine Ketones Negativemg/dL (NEGATIVE) Urine Occult Blood Trace (NEGATIVE) Urine Nitrite Negative (NEGATIVE) Urine Bilirubin Negative (NEGATIVE) Urine Urobilinogen Normalmg/dL (NORMAL) Urine Leukocyte Esterase Trace (NEGATIVE) Urine RBC 3-10/hpf (0-2) Urine WBC 6-10/hpf (0-5) Urine Epithelial Cells Moderate/hpf (NONE-MOD) Urine Crystals None seen (NONE SEEN) Urine Bacteria Few/hpf (NONE-FEW) Urine Hyaline Casts None/lpf (NONE) Urine Granular Casts None seen (NONE SEEN) Urine Waxy Casts None seen (NONE SEEN) Urine Red Blood Cell Casts None seen (NONE SEEN) Urine White Blood Cell Casts None seen (NONE SEEN) Urine Mucus None seen (None Seen) Urine Trichomonas None seen (NONE SEEN) Urine Yeast Many (NONE SEEN) Urinalysis Comment None Urine Culture Reflexed Indicated Erythrocyte Sedimentation Rate > 140mm/hr (0-32) Phosphorus Level 3.1mg/dL (2.5-4.9) Test 05/22/16 04:30 White Blood Count 6.7th/mm3 (3.8-10.1) Red Blood Count 3.34mil/mm3 (3.90-5.20) Hemoglobin 8.8g/dL (12.0-15.6) Hematocrit 30.4% (35.0-46.0) Mean Corpuscular Volume 91.0fL (81-100) Mean Corpuscular Hemoglobin 26.3pg (27.0-35.0) Mean Corpuscular Hemoglobin Concent 28.9% (32.0-37.0) Red Cell Distribution Width 14.8% (12.3-15.4) Platelet Count 326bil/L (150-400) Neutrophils (%) (Auto) 70.1% (40-74) Lymphocytes (%) (Auto) 17.8% (14-46) Monocytes (%) (Auto) 8.6% (4-12) Eosinophils (%) (Auto) 2.8% (0-5) Basophils (%) (Auto) 0.1% (0-3) Sodium Level 141mEq/L (134-144) Potassium Level 4.2mEq/L (3.5-5.2) Chloride Level 99mEq/L (97-108) Carbon Dioxide Level 27mmol/L (18-29) Blood Urea Nitrogen 10mg/dL (6-20) Creatinine 0.56mg/dL (0.57-1.00) Estimat Glomerular Filtration Rate 174mL/min (>59) Glucose Level 90mg/dL (60-99) Calcium Level 7.6mg/dL (8.5-10.1) Magnesium Level 1.9mg/dL (1.6-2.6) Total Bilirubin 0.2mg/dL (0.0-1.2) Aspartate Amino Transf (AST/SGOT) 18U/L (0-50) Alanine Aminotransferase (ALT/SGPT) 6U/L (0-32) Alkaline Phosphatase 163U/L (25-150) Total Protein 5.2g/dL (6.4-8.4) Albumin 2.2g/dL (3.4-5.0) Procalcitonin 0.07ng/mL (0.00-0.08) Plan Impression Patient chart reviewed, patient interviewed and anesthestic plan with risks, benefits, and alternatives discussed, and informed consent obtained. ASA Physical Status: ASA3 Severe Disease (bacteremia) Anesthetic Plan: MAC Bene/Risks/Altern/Consents: Yes HP Complete Prior to Induction: Yes Robert Larson MD May 22, 2016 13:01
[2016-05-22] MEDS ORDERED: Ondansetron 2 mg/mL 2 mL Inj IVPUSH PRN (13:40)
[2016-05-22] MEDS ORDERED: MetoCLOpramide 5 mg/mL 2 mL Inj IVPUSH PRN (13:40)
--- NOTE | 2016-05-22 14:12 | PCM.ANEP1 ---
Post Anesthesia Phase 1 PACU Phase 1 Assessment Vital Signs Vital Signs Date Time Temp Pulse Resp B/P Pulse Ox O2 Delivery O2 Flow Rate FiO2 05/22/16 10:53 94 05/22/16 10:37 37.1 98 17 113/79 92 Room Air Pain: No Pain Scale Score: 9 Lungs: Clear to Auscultation, Diminished Robert Larson MD May 22, 2016 14:12
--- NOTE | 2016-05-22 14:25 | PCM.ANEP2 ---
Post Anesthesia Evaluation ASA/CMS Post Anesthesia VS in Patient's Normal Range?: Yes Resp Stable; Airway Patent?: Yes CV Function & Hydration Stable: Yes Mental Status Recovered?: Yes Pain control Satisfactory?: Yes N/V Control Satisfactory?: Yes Robert Larson MD May 22, 2016 14:25
--- NOTE | 2016-05-22 16:13 | DRSVH ---
[facility] [address] [place] [address] Echocardiogram Report Name: KAYLEE TURNERudy Date: 05/22/2016 Hospital Exam Location: [facility] Gender: Female : 1980 Age: 36 yrs Reason For Study: BACTEREMIA Ordering Physician: MD Derek Cat Performed By: Sunny Garrido Referring Physician: HOSPITALIST [facility] Interpretation Summary 1. Grossly normal left ventricular size and systolic function. 2. Grossly normal right ventricular size and systolic function. 3. With the views obtained, no vegetations were appreciated on the mitral, aortic or tricuspid valves. The pulmonic valve was not optimally visualized Procedure: Informed consent for Transesophageal Echocardiogram, and use of a contrast agent as needed, was obtained prior to the procedure. Sedation was managed by anesthesiologist; see anesthesiology notes for details. An intravenous line was placed. A topical anesthetic agent was used for oropharangeal anesthesia. A bite block was inserted. The patient was brought to the [facility] in a fasting state. The patient has a paced rhythm. There were no complications. Left Ventricle: The left ventricle is grossly normal size. Left ventricular systolic function is normal. Right Ventricle: There is a pacemaker lead in the right ventricle. The right ventricle is grossly normal size. The right ventricular systolic function is normal. Mitral Valve: The mitral valve is normal. There is mild mitral regurgitation. Aortic Valve: The aortic valve is trileaflet. Sclerotic changes are appreciated at the leaflet tips. No vegetations appreciated in the views obtained. There is no aortic valve stenosis. There is mild aortic regurgitation. Tricuspid Valve: Leaflets appear thin with normal excursion. In the views obtained, no vegetations are appreciated. There is mild tricuspid regurgitation. Pulmonic Valve: The pulmonic valve is not well seen, but is grossly normal. Reading Physician:04:13 PM
[2016-05-22] MEDS: Pantoprazole 40 mg ER24 Tablet PO SCH ×2 (16:14→21:56)
[2016-05-22] MEDS: MeTOProlol XL 50 mg ER24 Tablet PO SCH ×2 (16:14→21:56)
[2016-05-22] MEDS: Polyethylene Glycol (PEG) 17 Gm Powder PO PRN (16:19)
[2016-05-22] MEDS: Venlafaxine XR 75 mg ER24 Capsule PO SCH (16:19)
[2016-05-22] MEDS: LORazepam 1 mg Tablet PO PRN (21:55)
[2016-05-23] VITALS (8 sets, daily range): BP systolic 101–114; BP diastolic 70–77; PULSE 83–101; RESP 16–18; O2SAT 94–97
[2016-05-23] MEDS: HYDROmorphone 1 mg/mL Inj IVPUSH PRN ×8 (00:53→22:01)
[2016-05-23] MEDS: Dextrose 5% 0.45% NaCl 1,000 ML IV SCH ×3 (00:55→16:08)
[2016-05-23] MEDS: CeFAZolin Inj 2 GM in IV Premix 1 EACH IV SCH ×3 (03:45→19:18)
--- NOTE | 2016-05-23 07:20 | PCM.PNMED ---
Subjective Date of Service May 23, 2016 Subjective Pain continues to be issue overnight - noted in R abdom/flank area - no reports of worsening sob/cp. s/p TTE - AJIT today with PM removal eval? - cont IV abx w ancef. repeat bld cx Exam Vital Signs Vital Sign - Last Date Time Temp Pulse Resp B/P Pulse Ox O2 Delivery O2 Flow Rate FiO2 05/23/16 05:59 36.6 86 17 108/76 95 Room Air Intake and Output 05/22/16 05/22/16 05/23/16 Cumulative From/Thru 15:00 23:00 07:00 05/20/16 15:41 - 05/23/16 06:42 Intake Total 200 ml 2059 ml 5548 ml Output Total 600 ml 1200 ml 4425 ml Balance -400 ml 859 ml 1123 ml Intake Oral 200 ml 550 ml 3087 ml IV Total 1509 ml 2461 ml Output Urine Total 600 ml 1200 ml 4400 ml Drainage Total 0 ml 25 ml # Voids 2 # Bowel Movements 0 Exam Gen. patient is lying comfortably in hospital bed HEENT: Head is normocephalic atraumatic, Pupils equal and reactive, extraocular movements intact, Lungs clear to auscultation bilaterally, no w/r Heart regular rate and rhythm without murmurs gallops or rubs, clean and healed pacemaker site on left chest Abdomen soft nontender without hepatosplenomegaly. Right flank percutaneous drain in place with scanty purulent in bag Extremities pulses are present dorsalis pedis posterior tibialis and radial. Skin is warm and dry there are no rashes, Psych alert and oriented to person place and time Neuro cranial nerves II through XII are grossly intact IVs and Medications Medications Reviewed: Medications were reviewed in detail Lab and Diagnostics Result Diagram: 05/22/16 0430 05/22/16 0430 Cardiac Echo Impressions 05/06/16 Interpretation Summary The left ventricle is mildly dilated. Left ventricular systolic function is mild to moderately reduced. The ejection fraction is estimated to be 45-50%. There is significant hypokinesis of the mid and distal septum and apex in addition to the distal inferior wall. This may be related to RV apical pacing however it may also represent ischemia in the distribution of the LAD. This is new c/w the prior exam from 12/12/2015. There is a RA pacemaker lead identified however the RV lead is not well seen. No obvious vegetation seen. There is mild to moderate mitral regurgitation. There is mild to moderate aortic regurgitation. 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 The AI and MR were not seen on the prior exam. No other echocardiographic abnormalities seen. A AJIT exam would likely be beneficial in better evaluating the etiology and severity of the AI and MR as well as excluding a vegetation on the pacemaker leads if clinically appropriate. Assessment & Plan 36-year-old lady with past medical history of type I diabetes, history of Graves ' disease, PTSD, anxiety, SVT status post ablation, complete heart block status post pacemaker now presenting with perinephric abscess and bacteremia # Suspected endocarditis and pacemaker infection,acute,poa -Endocarditis/pacemaker infection seeding hematogenously to perinephric area is the most likely explanation given the fact: No urinary complaints , urine analysis and urine culture negative all along. NEW ONSET aortic insufficiency and mitral regurgitation with some systolic dysfunction seen on echo on 05/06. Unusual organism for UTI and perinephric abscess. subacute course. -will continue cefazolin for now -ID consult Dr. Ambrose and cardiology consulted for AJIT -Cardiology and ID to decide whether to remove pacemaker after AJIT -ESR > 140 -Repeat blood culture pending, initial blood culture MSSA # MSSA Bacteremia -Management as above -Serial blood culture,no growth now, repeat cx today #Perinephric abscess status post percutaneous drain -Percutaneous drain care #Type I diabetes with recent DKA -Continue home Lantus 40 units in a.m. 50 units at bedtime.lowered am lantus to 20 today due to blood glucose of 90.on D%1/2 NS also given npo awaiting AJIT -Sliding-scale # Recent SVT s/p ablation -telemetry # Recent pacemaker insertion for complete heart block #Hypothyroidism -Continue Synthroid 250 MCG daily -TSH WNL #PTSD/anxiety -Continue home meds full code Disposition: Pending AJIT and clinical course.she requires long term care administrator antibiotics, PICC already in Pain Evaluation: Other (titrating) GI Prophylaxis: Proton Pump Inhibitor VTE Prophylaxis: Sub-Q Enoxaparin VTE Mechanical Devices: Intermittant Pneumatic CD Resuscitation Status: CPR: Attempt Resuscitation Time spent 40 minutes spent with evryan and Fortunato Helms DO May 23, 2016 07:20
[2016-05-23] MEDS: Insulin LISPRO 300 Unit/3 mL Inj SUBQ SCH ×4 (08:06→22:00)
[2016-05-23] MEDS: Insulin GLARgine 100 Unit/mL Syringe SUBQ SCH ×2 (08:06→22:14)
[2016-05-23] MEDS: Venlafaxine XR 75 mg ER24 Capsule PO SCH (08:07)
[2016-05-23] MEDS: Pantoprazole 40 mg ER24 Tablet PO SCH ×2 (08:07→22:14)
[2016-05-23] MEDS: MeTOProlol XL 50 mg ER24 Tablet PO SCH ×2 (08:18→22:13)
[2016-05-23 10:03] LABS: BASOPHILS % (AUTO) 0.5 % (0-3); EOSINOPHILS % (AUTO) 2.4 % (0-5); MONOCYTES % (AUTO) 10.4 % (4-12); Mean Corpuscular Hemoglobin 26.6 pg (27.0-35.0); Mean Corpuscular Volume 91.7 fL (81-100); Platelet Count 350 bil/L (150-400)
--- NOTE | 2016-05-23 14:33 | DRSVH ---
PROCEDURE: US ABDOMEN INDICATIONS: ruq pain-worsening TECHNIQUE: Real-time scanning was performed of the abdominal and retroperitoneal organs, with image documentatio n. COMPARISON: [facility], CR, XR CHEST 1VW (PORTABLE), 05/20/2016, 17:16. FINDINGS: Liver length: 20.27 cm CBD: 3.40 mm Spleen length: 13.34 cm Right kidney length: 12.62 cm Left kidney length: 13.08 cm Aorta(Proximal): 2.12 cm Aorta(Mid): 1.82 cm Liver: Liver is normal in size and homogeneous in echotexture. Gallbladder: Post cholecystectomy. Biliary ducts: Intrahepatic bile ducts are non-dilated. Extrahepatic bile duct caliber is normal. Normal is 6-7 mm or less in diameter, or 10 mm or less post-cholecystectomy. Pancreas: Visualized portions of the pancreas are sonographically normal. Spleen: Spleen is normal in size and homogeneous in echotexture. Kidneys: Kidneys are normal in size and echotexture. No hydronephrosis or nephrolithiasis. No lisa d masses. Aorta: Visualized aorta is normal in caliber at less than 3 cm. Iliacs: Proximal common iliac arteries are normal in caliber at less than 2.5 cm. IVC: Intrahepatic inferior vena cava is patent. Miscellaneous: No free abdominal fluid. Small right pleural effusion. IMPRESSION: Small right pleural effusion. Dictated by: Farhan Barrera [facility] Interpreted: Lauren Garcia MD on 05/23/2016 at 14:32 Transcribed by: BUCK on 05/23/2016 at 14:33 Approved by: Lauren Garcia MD, PhD on 05/23/2016 at 16:55
[2016-05-23] MEDS: Polyethylene Glycol (PEG) 17 Gm Powder PO PRN (18:09)
[2016-05-23] MEDS: LORazepam 1 mg Tablet PO PRN (22:14)
--- NOTE | 2016-05-23 23:02 | PROG NOTE ---
[address] [address] PROGRESS NOTE PATIENT: KAYLEE TURNER : 1980 MR#: [id number] ADMIT: 05/20/2016 JOB ID: [id number] INFECTIOUS DISEASES FOLLOWUP: DATE: 05/23/2016 REASON FOR FOLLOWUP: MSSA bacteremia with right perinephric abscess in a patient with a recently installed pacer. INTERVAL HISTORY: Overnight, the patient has been free of fevers or chills. She reports she seems to be gradually improving though she still has a lot of right flank pain. Today, an ultrasound was done to assess her right-sided flank pain as well as look at the perinephric abscess and its drain. She is having no cough, shortness of breath, chest pain, or nausea, vomiting, and no urinary symptoms. PHYSICAL EXAMINATION: VITAL SIGNS: Reveals an afebrile woman. Temp 36.9, pulse 94, respiratory rate 16, blood pressure 110/77, saturating well on room air. GENERAL: She is awake and alert, though appears depressed. ORAL CAVITY: Negative. LUNGS: Fairly clear. CARDIAC: The pacer remains minimally tender with palpation, but no discrete warmth or erythema. The cardiac tones without murmur. ABDOMEN: The abdomen is benign. The right flank drain is in place, scant drainage. LABORATORIES: Labs include a white count of 6700, creatinine 0.56. The blood cultures here are negative. We called [place]. The initial blood cultures done in the first two days there were positive. The followup just before leaving, being transferred here were negative, and our blood cultures here on the have been negative. So, she had a methicillin-sensitive Staphylococcus aureus bacteremia for a couple of days, which was truncated by the use of intravenous cefazolin. The urine culture is negative. The abdominal ultrasound today showed really very little in the way of residual abscess and no other right upper quadrant or other pathology. The transesophageal echo was done today and we discussed this with Dr. Cat as well as Dr. Newton. It shows no vegetations and no abnormalities of the pacer wires. IMPRESSION: This is an extraordinarily difficult case. This patient had a pacer placed a couple of months ago for a 3rd degree heart block. The pacer pocket was slow to heal, but it did heal eventually. It has felt a little bit uncomfortable since then, but never warm or tender. She then developed right flank pain and fever and chills and was admitted to the hospital in [place] and found to have a bacteremic methicillin-sensitive Staphylococcus aureus right perinephric abscess which now has a drain in place. Staph aureus perinephric abscesses are thought to proceed from an "upstream" source rather than a downstream source such as most perinephric abscesses. Whenever a Staphylococcus aureus perinephric abscess is found, there is a strong suspicion that the patient was, in fact, bacteremic and seated hematogenously. This is almost certainly the case here as we have negative UA and urine culture suggesting this did not start from a methicillin-sensitive Staphylococcus aureus urinary tract infection which would be unusual. This finding of a Staphylococcus aureus bacteremic perinephric abscess with the recent pacer raises the question of whether or not the pacer is infected and I have discussed this with both Drs. Cat and Ivon today. Dr. Del Valle is hoping that we can try and treat this with the pacer in place assuming that the bacteremia did not proceed from the pacer and, perhaps, we can keep it in place. The downside of that is that if the pacer is infected this treatment is likely to fail and, of course, the downside of taking out the pacer emergently right now is that it may not be infected and we may commit the patient to a couple of weeks in the hospital with temporary pacing while we wait for negative blood cultures to place a new pacer. Dr. Del Valle and I are going to review the literature some more and discuss this with colleagues before making a final decision tomorrow. RECOMMENDATIONS: 1. Will continue with high-dose Ancef. 2. We will continue to watch her followup blood cultures. 3. I will be discussing with Interventional Radiology tomorrow whether the right perinephric abscess drain can be pulled. 4. I will be discussing this case additionally with Dr. Del Valle tomorrow.
[2016-05-24] VITALS (7 sets, daily range): BP systolic 97–116; BP diastolic 67–78; PULSE 81–102; RESP 16–20; O2SAT 94–98
[2016-05-24] MEDS: HYDROmorphone 1 mg/mL Inj IVPUSH PRN ×8 (01:00→22:21)
[2016-05-24] MEDS: CeFAZolin Inj 2 GM in IV Premix 1 EACH IV SCH ×3 (02:49→19:28)
[2016-05-24 04:19] LABS: BASOPHILS % (AUTO) 0.3 % (0-3); EOSINOPHILS % (AUTO) 1.9 % (0-5); MONOCYTES % (AUTO) 8.1 % (4-12); Mean Corpuscular Hemoglobin 26.4 pg (27.0-35.0); Mean Corpuscular Volume 90.6 fL (81-100); NEUTROPHILS % (AUTO) 72.6 % (40-74); Platelet Count 335 bil/L (150-400)
--- NOTE | 2016-05-24 07:31 | PCM.PNMED ---
Subjective Date of Service May 24, 2016 Subjective no overnight events - cont IV ancef, discussing complex plan of observing vs intervention of PM given possible etiology of hematogenous spread. does have some unchanged mild cp - afebrile, no sob Exam Vital Signs Vital Sign - Last Date Time Temp Pulse Resp B/P Pulse Ox O2 Delivery O2 Flow Rate FiO2 05/24/16 05:10 36.6 85 18 108/71 94 Room Air Intake and Output 05/23/16 05/23/16 05/24/16 Cumulative From/Thru 15:00 23:00 07:00 05/20/16 15:41 - 05/24/16 06:19 Intake Total 2107 ml 1301 ml 8956 ml Output Total 300 ml 0 ml 4725 ml Balance 1807 ml 1301 ml 4231 ml Intake Oral 1160 ml 600 ml 4847 ml IV Total 947 ml 701 ml 4109 ml Output Urine Total 300 ml 0 ml 4700 ml Drainage Total 25 ml # Voids 2 # Bowel Movements 0 Exam Gen. patient is lying comfortably in hospital bed HEENT: Head is normocephalic atraumatic, Pupils equal and reactive, extraocular movements intact, Lungs clear to auscultation bilaterally, no w/r Heart regular rate and rhythm without murmurs gallops or rubs, clean and healed pacemaker site on left chest Abdomen soft nontender without hepatosplenomegaly. Right flank percutaneous drain in place with scanty purulent in bag Extremities pulses are present dorsalis pedis posterior tibialis and radial. Skin is warm and dry there are no rashes, Psych alert and oriented to person place and time Neuro cranial nerves II through XII are grossly intact IVs and Medications Medications Reviewed: Medications were reviewed in detail Lab and Diagnostics Result Diagram: 05/24/16 0400 05/24/16 0400 Cardiac Echo Impressions 05/06/16 Interpretation Summary The left ventricle is mildly dilated. Left ventricular systolic function is mild to moderately reduced. The ejection fraction is estimated to be 45-50%. There is significant hypokinesis of the mid and distal septum and apex in addition to the distal inferior wall. This may be related to RV apical pacing however it may also represent ischemia in the distribution of the LAD. This is new c/w the prior exam from 12/12/2015. There is a RA pacemaker lead identified however the RV lead is not well seen. No obvious vegetation seen. There is mild to moderate mitral regurgitation. There is mild to moderate aortic regurgitation. The AI jet is poorly visualized and it is difficult to linseed oil order filler the cause and severety of the Aortic insufficency based on the current exam. The AI and MR were not seen on the prior exam. No other echocardiographic abnormalities seen. A AJIT exam would likely be beneficial in better evaluating the etiology and severity of the AI and MR as well as excluding a vegetation on the pacemaker leads if clinically appropriate. Assessment & Plan 36-year-old lady with past medical history of type I diabetes, history of Graves ' disease, PTSD, anxiety, SVT status post ablation, complete heart block status post pacemaker now presenting with perinephric abscess and bacteremia # Pacemaker infection possilby causing below MSSA bacteremia,acute,poa -less likely Endocarditis given AJIT results. Pacemaker infection seeding hematogenously to perinephric area is the most likely explanation given the fact : No urinary complaints , urine analysis and urine culture negative all along. NEW ONSET aortic insufficiency and mitral regurgitation with some systolic dysfunction seen on echo on 05/06. Unusual organism for UTI and perinephric abscess. subacute course. -will continue cefazolin for now -ID consult Dr. Ambrose and cardiology -Cardiology and ID to decide whether to remove pacemaker after AJIT -ESR > 140 -Repeat blood culture pending, initial blood culture MSSA # MSSA Bacteremia -Management as above -Serial blood culture,no growth #Perinephric abscess status post percutaneous drain -Percutaneous drain care #Type I diabetes with recent DKA -Continue home Lantus 40 units in a.m. 50 units at bedtime.lowered am lantus to 20 today due to blood glucose of 90.on D%1/2 NS also given npo awaiting AJIT -Sliding-scale # Recent SVT s/p ablation -telemetry # Recent pacemaker insertion for complete heart block #Hypothyroidism -Continue Synthroid 250 MCG daily -TSH WNL #PTSD/anxiety -Continue home meds full code Disposition: Pending AJIT and clinical course.she requires intermediate project manager antibiotics, PICC already in Pain Evaluation: Adequate Pain Control GI Prophylaxis: Proton Pump Inhibitor VTE Prophylaxis: Sub-Q Enoxaparin VTE Mechanical Devices: Intermittant Pneumatic CD Resuscitation Status: CPR: Attempt Resuscitation Time spent 35 minutes spent with eval and Fortunato Helms DO May 24, 2016 07:31
[2016-05-24] MEDS: Insulin LISPRO 300 Unit/3 mL Inj SUBQ SCH ×4 (08:00→22:00)
[2016-05-24] MEDS: Pantoprazole 40 mg ER24 Tablet PO SCH ×2 (08:06→19:27)
[2016-05-24] MEDS: Dextrose 5% 0.45% NaCl 1,000 ML IV SCH (08:06)
[2016-05-24] MEDS: Venlafaxine XR 75 mg ER24 Capsule PO SCH (08:09)
[2016-05-24] MEDS: Insulin GLARgine 100 Unit/mL Syringe SUBQ SCH ×2 (08:10→22:19)
[2016-05-24] MEDS: MeTOProlol XL 50 mg ER24 Tablet PO SCH ×2 (08:30→19:27)
--- NOTE | 2016-05-24 14:12 | PROG NOTE ---
[address] [address] PROGRESS NOTE PATIENT: KAYLEE TURNER : 1980 MR#: [id number] ADMIT: 05/20/2016 JOB ID: [id number] DATE: 05/24/2016 INFECTIOUS DISEASE FOLLOW UP NOTE: REASON FOR FOLLOWUP: Bacteremic MSSA right perinephric abscess. INTERVAL HISTORY: The patient reports that overnight she has been free of fevers or chills. She continues to state that her pacer feels a little bit tender perhaps to palpation but without drainage or warmth. She has no chest pain, no shortness of breath and no significant cough. Her right flank pain continues to decrease though it is still present and she still has a drain into her right perinephric space. She denies any skin rash. PHYSICAL EXAMINATION: Reveals an afebrile woman, temperature 36.7, blood pressure 97/67, saturating well on room air. No acute distress. Her mental status is clear though her mood seems depressed. Oral cavity negative. Lungs fairly clear. Cardiac tones without murmur. The pacer pocket continues to appear benign though the patient reports mild discomfort when the pacer is palpated. The incision over the pacer remains mildly erythematous but without any breakdown. Recall this is now about two months old. The abdomen is benign except for the right flank where the drain is present and there is some mild tenderness. No skin rashes noted. No peripheral stigmata of endocarditis. LABORATORIES: Include a white count of 7200 with a completely normal differential. Creatinine 0.52. Procalcitonin is negative. Urinalysis negative. Blood cultures are negative at this facility. In [place] they were positive on the and but negative thereafter and they are negative here since she was transferred. An abdominal ultrasound done yesterday did not show any residual perinephric fluid collection and there was no liver pathology. She is status post cholecystectomy. IMPRESSION: This patient suffered a severe right perinephric MSSA abscess with bacteremia. This was occurring in the setting of a recent pacer placement and has raised concerns about the possibility that the pacer is infected. A transesophageal echo did not see any evidence of infection on the pacer leads nor on any heart valves and the pacer pocket continues to look benign though it is worrisome that the patient finds it minimally tender at all times. I have discussed this case extensively both yesterday and this morning with Dr. Del Valle of Cardiology. He has spoken to the experts at the [facility] and they agree that though it is a possibility that the pacer may be involved, it is probably more likely that it is not involved and we can treat aggressively with prolonged IV therapy. The hope is here that the pacer can be spared and that it has not been infected by the bacteremic perinephric infection. I remain concerned that the pacer may have been even the source of this bacteremic infection that seated the kidney, but concede that taking out the pacer at this juncture without proof of it being infected would be a major problem for the patient as she would require temporary pacing for a couple weeks and then placement of another pacer on the other side which may, if this pacer is actually not infected, be wholly unnecessary. I, therefore, agree with this plan to continue IV antibiotics but with extremely close followup. RECOMMENDATIONS: 1. Cefazolin 2 g IV q.8 through June 30. 2. The patient will followup with me on June 05 and will also continue to be closely followed by Dr. Del Valle. 3. We have discussed in detail with the patient what to look for. Should her pacer pocket become more tender, swollen or drain in any way or if she should develop additional fevers, chills, sweats or malaise, she should contact Dr. Del Valle or me immediately so we can facilitate readmission and removal of the pacer and the pacing wires. 4. The patient will have weekly laboratories drawn and forwarded to me as well as Dr. Del Valle. 5. We will add a CRP to today's laboratories so we have a baseline and then we will be following weekly CBC, CMP and CRP. 6. This situation discussed today with Dr. Del Valle, the patient, the patient's father with whom she lives and the social insurance analyst. Greater than 40 minutes was spent on this case today coordinating care. At 1500 notified re a new pos BC for staph from 05.23. If this is MSSA we will need to reconsider our decision to keep pacer as this would more strongly implicate a pacer infection MTDD
--- NOTE | 2016-05-24 15:23 | DRSVH ---
PROCEDURE: X-RAY FISTULAGRAM/SINOGRAM INDICATIONS: R perinephric abscess w/ drain COMPARISON: [facility], CT, ABDOMEN WITHOUT CONTRAST, 05/20/2016, 7:39. [facility], CT, DR REYNOSO RETRO OR PERITONEAL CT, 05/17/2016, 11:33. FINDINGS: Psychologist Developmental view demonstrates cholecystectomy clips and a right flank percutaneous drainage cath eter. With contrast administration there is opacification of a small residual sinus cavity adjacent to the coiled tube tip measuring roughly 3.2 x 1.7 cm. Delayed images demonstrates no definite opaci fication of adjacent neighboring anatomy. The attending physician was personally present in the room during the examination. IMPRESSION: Small sinus cavity adjacent to the right flank percutaneous drain tip. Drain was left i n position. Dictated by: Farhan Barrera [facility] Interpreted: Lauren Garcia MD on 05/24/2016 at 15:21 Transcribed by: BUCK on 05/24/2016 at 15:23 Approved by: Lauren Garcia MD, PhD on 05/24/2016 at 17:10
[2016-05-24] MEDS: Polyethylene Glycol (PEG) 17 Gm Powder PO PRN (16:25)
[2016-05-24] MEDS: LORazepam 1 mg Tablet PO PRN (22:20)
[2016-05-24] MEDS: Sodium Chloride LOK Flush 10 mL Syringe IVFLUSH SCH (23:55)
[2016-05-25] VITALS (9 sets, daily range): BP systolic 102–133; BP diastolic 70–84; PULSE 83–101; RESP 16; O2SAT 92–100
[2016-05-25] MEDS: Dextrose 5% 0.45% NaCl 1,000 ML IV SCH ×3 (00:43→15:00)
[2016-05-25] MEDS: HYDROmorphone 1 mg/mL Inj IVPUSH PRN ×8 (01:34→23:55)
[2016-05-25] MEDS: CeFAZolin Inj 2 GM in IV Premix 1 EACH IV SCH ×3 (04:29→19:26)
[2016-05-25 04:53] LABS: BASOPHILS % (AUTO) 0.3 % (0-3); EOSINOPHILS % (AUTO) 2.5 % (0-5); MONOCYTES % (AUTO) 9.1 % (4-12); Mean Corpuscular Hemoglobin 26.2 pg (27.0-35.0); Mean Corpuscular Volume 89.5 fL (81-100); NEUTROPHILS % (AUTO) 74.6 % (40-74); Platelet Count 364 bil/L (150-400)
[2016-05-25] MEDS: Insulin LISPRO 300 Unit/3 mL Inj SUBQ SCH ×4 (07:52→21:01)
[2016-05-25] MEDS: MeTOProlol XL 50 mg ER24 Tablet PO SCH ×2 (07:57→20:54)
[2016-05-25] MEDS: Pantoprazole 40 mg ER24 Tablet PO SCH ×2 (07:58→20:54)
[2016-05-25] MEDS: Venlafaxine XR 75 mg ER24 Capsule PO SCH (07:59)
[2016-05-25] MEDS: Insulin GLARgine 100 Unit/mL Syringe SUBQ SCH ×2 (08:00→20:55)
[2016-05-25] MEDS: Sodium Chloride LOK Flush 10 mL Syringe IVFLUSH SCH ×2 (08:13→16:30)
[2016-05-25] MEDS: Polyethylene Glycol (PEG) 17 Gm Powder PO PRN (11:57)
--- NOTE | 2016-05-25 13:08 | PCM.PNMED ---
Subjective Date of Service May 25, 2016 Subjective Patient updated regarding likely pacemaker removal on Friday. Final speciation of bacteremia gram-positive organism. Pain in right abdominal quadrant is persistent, small bowel movement after suppository, plan to continue MiraLAX and senna today. Patient utilizing every 3 pain IV meds, denies fever or chills , shortness of breath or any chest pain. Exam Vital Signs Vital Sign - Last Date Time Temp Pulse Resp B/P Pulse Ox O2 Delivery O2 Flow Rate FiO2 05/25/16 09:51 36.7 91 16 102/70 92 Room Air Intake and Output 05/24/16 05/24/16 05/25/16 Cumulative From/Thru 15:00 23:00 07:00 05/20/16 15:41 - 05/25/16 06:53 Intake Total 1729 ml 300 ml 43635 ml Output Total 750 ml 800 ml 6275 ml Balance 979 ml -500 ml 4710 ml Intake Oral 720 ml 300 ml 5867 ml IV Total 1009 ml 0 ml 5118 ml Output Urine Total 750 ml 800 ml 6250 ml Drainage Total 25 ml # Voids 2 4 # Bowel Movements 0 Exam gen. patient is lying comfortably in hospital bed HEENT: Head is normocephalic atraumatic, Pupils equal and reactive, extraocular movements intact, Lungs clear to auscultation bilaterally, no w/r Heart regular rate and rhythm without murmurs gallops or rubs, clean and healed pacemaker site on left chest, are tender to palpation in pacemaker area, no fluctuance seen Abdomen soft nontender without hepatosplenomegaly. Right flank percutaneous drain in place with scanty purulent in bag Extremities pulses are present dorsalis pedis posterior tibialis and radial. Skin is warm and dry there are no rashes, Psych alert and oriented to person place and time Neuro cranial nerves II through XII are grossly intact IVs and Medications Medications Reviewed: Medications were reviewed in detail Lab and Diagnostics Result Diagram: 05/25/16 0440 05/25/160 Cardiac Echo Impressions 05/06/16 Interpretation Summary The left ventricle is mildly dilated. Left ventricular systolic function is mild to moderately reduced. The ejection fraction is estimated to be 45-50%. There is significant hypokinesis of the mid and distal septum and apex in addition to the distal inferior wall. This may be related to RV apical pacing however it may also represent ischemia in the distribution of the LAD. This is new c/w the prior exam from 12/12/2015. There is a RA pacemaker lead identified however the RV lead is not well seen. No obvious vegetation seen. There is mild to moderate mitral regurgitation. There is mild to moderate aortic regurgitation. The AI jet is poorly visualized and it is difficult to internet merchant the cause and severety of the Aortic insufficency based on the current exam. The AI and MR were not seen on the prior exam. No other echocardiographic abnormalities seen. A AJIT exam would likely be beneficial in better evaluating the etiology and severity of the AI and MR as well as excluding a vegetation on the pacemaker leads if clinically appropriate. Assessment & Plan 36-year-old lady with past medical history of type I diabetes, history of Graves ' disease, PTSD, anxiety, SVT status post ablation, complete heart block status post pacemaker now presenting with perinephric abscess and bacteremia # Pacemaker infection possilby causing below MSSA bacteremia,acute,poa -No evidence of Endocarditis given AJIT results. Pacemaker infection seeding hematogenously to perinephric area is the most likely explanation given the fact : No urinary complaints , urine analysis and urine culture negative all along. NEW ONSET aortic insufficiency and mitral regurgitation with some systolic dysfunction seen on echo on 05/06. Unusual organism for UTI and perinephric abscess. subacute course. -will continue cefazolin for now -ID consult Dr. Ambrose and cardiology -Cardiology and ID input appreciated, plan for pacemaker removal on Friday -IV fluids to 100 mL an hour begun 05/25 -Repeat positive blood cultures final speciation pending -Please alert physician if spiking fevers # MSSA Bacteremia -Management as above -Serial blood culture, pending as above #Perinephric abscess status post percutaneous drain -Percutaneous drain care while increase output with stable tenderness at site of drain #Type I diabetes with recent DKA -Continue home Lantus 40 units in a.m. 50 units at bedtime.lowered am lantus to 20 due to blood glucose of 90 -Sliding-scale # Recent SVT s/p ablation -telemetry # Recent pacemaker insertion for complete heart block - Dr. Del Valle to facilitate pacemaker removal on Friday -Temporary pacing versus replacement pacemaker management per cardiology #Hypothyroidism -Continue Synthroid 250 MCG daily -TSH WNL #PTSD/anxiety -Continue home meds full code Disposition: To be decided after procedure on Friday Pain Evaluation: Other (pain meds being titrated) GI Prophylaxis: Proton Pump Inhibitor VTE Prophylaxis: Sub-Q Enoxaparin VTE Mechanical Devices: Intermittant Pneumatic CD Resuscitation Status: CPR: Attempt Resuscitation Time spent 40 minutes spent with evaluation and management Fortunato Bryan DO May 25, 2016 13:08
[2016-05-26] VITALS (10 sets, daily range): BP systolic 107–121; BP diastolic 73–81; PULSE 90–98; RESP 15–18; O2SAT 93–97
[2016-05-26] MEDS: Sodium Chloride LOK Flush 10 mL Syringe IVFLUSH SCH ×3 (00:29→16:30)
[2016-05-26] MEDS: CeFAZolin Inj 2 GM in IV Premix 1 EACH IV SCH (02:54)
[2016-05-26] MEDS: HYDROmorphone 1 mg/mL Inj IVPUSH PRN ×6 (02:55→22:15)
[2016-05-26] MEDS: Insulin LISPRO 300 Unit/3 mL Inj SUBQ SCH ×4 (08:00→21:27)
[2016-05-26] MEDS: MeTOProlol XL 50 mg ER24 Tablet PO SCH ×2 (08:23→21:21)
[2016-05-26] MEDS: Pantoprazole 40 mg ER24 Tablet PO SCH ×2 (08:25→21:21)
[2016-05-26] MEDS: Insulin GLARgine 100 Unit/mL Syringe SUBQ SCH ×2 (08:26→21:00)
[2016-05-26] MEDS: Venlafaxine XR 75 mg ER24 Capsule PO SCH (08:26)
[2016-05-26] MEDS ORDERED: Vancomycin Dose per Pharmacist XX SCH (08:30)
[2016-05-26] MEDS ORDERED: Vancomycin Inj 2,000 MG in 0.9% Sodium Chloride 500 ML IV ONE (08:40)
--- NOTE | 2016-05-26 11:34 | PCM.PNMED ---
Subjective Date of Service May 26, 2016 Subjective Patient doing well this morning, no complaints. Staph epidermidis resistance noted, discussed with pharmacy will start doxycycline based on sensitivities/ LATONIA per pharmacy. Linezolid okay to use, but medication interactions and trying to spare kidneys. No chest pain or shortness of breath today. Wean Dilaudid slightly and plan for surgery tomorrow for pacemaker removal. IR drain output 20 mL Exam Vital Signs Vital Sign - Last Date Time Temp Pulse Resp B/P Pulse Ox O2 Delivery O2 Flow Rate FiO2 05/26/16 09:59 36.7 98 18 121/81 94 Room Air Intake and Output 05/25/16 05/25/16 05/26/16 Cumulative From/Thru 15:00 23:00 07:00 05/20/16 15:41 - 05/26/16 06:30 Intake Total 1454 ml 0 ml 940 ml 93827 ml Output Total 600 ml 1420 ml 8295 ml Balance 1454 ml -600 ml -480 ml 5084 ml Intake Oral 0 ml 690 ml 6557 ml IV Total 1454 ml 250 ml 6822 ml Output Urine Total 600 ml 1400 ml 8250 ml Drainage Total 20 ml 45 ml # Voids 4 # Bowel Movements 0 Exam gen. patient is lying comfortably in hospital bed HEENT: Head is normocephalic atraumatic, Pupils equal and reactive, extraocular movements intact, Lungs clear to auscultation bilaterally, no w/r Heart regular rate and rhythm without murmurs gallops or rubs, clean and healed pacemaker site on left chest, are tender to palpation in pacemaker area, no fluctuance seen Abdomen soft nontender without hepatosplenomegaly. Right flank percutaneous drain in place with scanty purulent in bag Extremities pulses are present dorsalis pedis posterior tibialis and radial. Skin is warm and dry there are no rashes, Psych alert and oriented to person place and time Neuro cranial nerves II through XII are grossly intact IVs and Medications Medications Reviewed: Medications were reviewed in detail Lab and Diagnostics Result Diagram: 05/25/1643905/25/16439 Cardiac Echo Impressions 05/06/16 Interpretation Summary The left ventricle is mildly dilated. Left ventricular systolic function is mild to moderately reduced. The ejection fraction is estimated to be 45-50%. There is significant hypokinesis of the mid and distal septum and apex in addition to the distal inferior wall. This may be related to RV apical pacing however it may also represent ischemia in the distribution of the LAD. This is new c/w the prior exam from 12/12/2015. There is a RA pacemaker lead identified however the RV lead is not well seen. No obvious vegetation seen. There is mild to moderate mitral regurgitation. There is mild to moderate aortic regurgitation. The AI jet is poorly visualized and it is difficult to magnetometer operator the cause and severety of the Aortic insufficency based on the current exam. The AI and MR were not seen on the prior exam. No other echocardiographic abnormalities seen. A AJIT exam would likely be beneficial in better evaluating the etiology and severity of the AI and MR as well as excluding a vegetation on the pacemaker leads if clinically appropriate. Assessment & Plan 36-year-old lady with past medical history of type I diabetes, history of Graves ' disease, PTSD, anxiety, SVT status post ablation, complete heart block status post pacemaker now presenting with perinephric abscess and bacteremia # Pacemaker infection possilby causing below MSSA bacteremia,acute,poa -No evidence of Endocarditis given AJIT results. Pacemaker infection seeding hematogenously to perinephric area is the most likely explanation given the fact : No urinary complaints , urine analysis and urine culture negative all along. -NEW ONSET aortic insufficiency and mitral regurgitation with some systolic dysfunction seen on echo on 05/06. Unusual organism for UTI and perinephric abscess. subacute course. -Changed cefazolin to doxycycline based on staph epidermidis susceptibilities on 05/26, discussed with Dr. Ambrose. Plan for cultures of PICC line and peripheral given possible staph epidermidis from PICC line or IR drain. -Cardiology and ID input appreciated, plan for pacemaker removal on Friday, 05/27 -IV fluids to 100 mL an hour begun 05/25, decreased to 60 an hour 05/26 given adequate oral intake/output and euvolemic -Repeat positive blood cultures - staph epidermidis resistance as noted above -Please alert physician if spiking fevers # MSSA/staph epidermidis, resistant Bacteremia -Management as above -Serial blood culture #Perinephric abscess status post percutaneous drain -Percutaneous drain care while increase output with stable tenderness at site of drain, consider discontinuation drain tomorrow if output minimal #Type I diabetes with recent DKA -Continue home Lantus 40 units in a.m. 50 units at bedtime.lowered am lantus to 20 due to blood glucose of 90 -Sliding-scale # Recent SVT s/p ablation -telemetry # Recent pacemaker insertion for complete heart block - Dr. Del Valle to facilitate pacemaker removal on Friday -Temporary pacing versus replacement pacemaker management per cardiology #Hypothyroidism -Continue Synthroid 250 MCG daily -TSH WNL #PTSD/anxiety -Continue home meds full code Disposition: To be decided after procedure on Friday GI Prophylaxis: Proton Pump Inhibitor VTE Prophylaxis: Sub-Q Enoxaparin VTE Mechanical Devices: Intermittant Pneumatic CD Resuscitation Status: CPR: Attempt Resuscitation Time spent 40 minutes spent with evaluation and management Fortunato Bryan DO May 26, 2016 11:34
[2016-05-26] MEDS: 0.9% Sodium Chloride 1,000 ML IV PRN (12:58)
[2016-05-26] MEDS: Doxycycline Inj 100 MG in Dextrose 5% Minibag Plus 100 ML IV SCH ×2 (12:59→22:30)
[2016-05-27] VITALS (18 sets, daily range): BP systolic 102–126; BP diastolic 59–82; PULSE 70–96; RESP 9–18; O2SAT 93–100
[2016-05-27] MEDS: Sodium Chloride LOK Flush 10 mL Syringe IVFLUSH SCH ×4 (02:24→23:34)
[2016-05-27] MEDS: HYDROmorphone 1 mg/mL Inj IVPUSH PRN ×5 (02:24→21:14)
[2016-05-27] MEDS: 0.9% Sodium Chloride 1,000 ML IV PRN (06:28)
[2016-05-27] MEDS: Insulin LISPRO 300 Unit/3 mL Inj SUBQ SCH ×4 (08:00→21:22)
[2016-05-27] MEDS: Pantoprazole 40 mg ER24 Tablet PO SCH ×2 (08:30→21:21)
[2016-05-27] MEDS: Venlafaxine XR 75 mg ER24 Capsule PO SCH (08:30)
[2016-05-27] MEDS: Insulin GLARgine 100 Unit/mL Syringe SUBQ SCH ×2 (08:30→21:00)
[2016-05-27] MEDS: MeTOProlol XL 50 mg ER24 Tablet PO SCH ×2 (09:26→21:21)
[2016-05-27] MEDS ORDERED: Vancomycin 1,000mg/200 mL NS IV ONE (09:58)
[2016-05-27] MEDS ORDERED: 0.9% Sodium Chloride 250 ML ONE (10:00)
[2016-05-27] MEDS ORDERED: Sodium Chloride LOK Flush 10 mL Syringe IVFLUSH PRN ×2 (10:00)
[2016-05-27] MEDS: CeFAZolin Inj 2 GM in IV Premix 1 EACH IV SCH ×2 (10:00→19:08)
[2016-05-27] MEDS ORDERED: Vancomycin 1,000 mg Inj ONE (10:00)
[2016-05-27] MEDS ORDERED: 0.9% Sodium Chloride 1,000 ML ONE ×2 (10:00→10:10)
[2016-05-27] MEDS ORDERED: Bupivacaine-MPF 0.5% 30 mL Inj ONE ×2 (10:09→11:49)
[2016-05-27] MEDS ORDERED: Heparin 1,000 Unit/mL 10 mL Inj ONE ×2 (10:10→12:52)
[2016-05-27] MEDS ORDERED: Vancomycin Inj 2,000 MG in 0.9% Sodium Chloride 500 ML IV ONE (10:55)
[2016-05-27] MEDS ORDERED: fentaNYL-PF 50 mCg/mL 2 mL Inj ONE ×3 (11:10→12:07)
--- NOTE | 2016-05-27 12:26 | PROG NOTE ---
[address] [address] PROGRESS NOTE PATIENT: KAYLEE TURNER : 1980 MR#: [id number] ADMIT: 05/20/2016 JOB ID: [id number] DATE: 05/27/2016 REASON FOR FOLLOWUP: Bacteremic right perinephric abscess with probable pacer infection. INTERVAL HISTORY: Recall this is an extremely complex woman who had a pacer placed a couple months ago because of third degree heart block. She was subsequently hospitalized at [facility] with a bacteremic MSSA infection and right perinephric abscess which was drained. Last week, we had many discussions with Dr. Del Valle regarding whether or not the pacer was infected. A AJIT failed to show definitive evidence of such infection, but we were nonetheless very concerned because of positive blood cultures occurring in a patient with a recently installed pacer and the fact she had a perinephric abscess which tends to be hematogenously spread, and we were wondering where exactly was the source of this hematogenous spread to the kidney. Over the weekend, the patient has been clinically relatively stable, but we have had a new development in that two blood cultures drawn on May 23 have turned positive now for coag-negative Staph. This is a bit of a surprising finding, as the cultures and perinephric abscess cultures from [place] were MSSA. The patient reports today she is having no fevers, chills, or sweats and is generally feeling a bit better. She is not short of breath, has no cough, no nausea, vomiting, or diarrhea. She has noticed there has been a little breakdown around her left upper extremity midline which was placed in [place] while she was actually probably bacteremic with MSSA. She continues to have the drain in the right flank which is a bit painful. PHYSICAL EXAMINATION: Reveals an afebrile woman. She has been afebrile since her transfer here. Current temp 36.6, pulse 93, respiratory rate 18, blood pressure 120/82, saturating well on room air. No acute distress. She is awake and alert. Eyes without conjunctival change. Oral cavity is benign. Nose normal. Neck is supple. Lungs clear. Cardiac tone without murmur. The left upper extremity midline seems to have a bit of phlebitis associated with it but is not incredibly tender. The patient has a right perinephric drain. Her abdomen is benign. She has no skin rash, and mentation is normal. LABORATORIES: Include a white count 7300. Diff basically normal. Creatinine 0.56. LFTs normal. Urinalysis 6-10 white cells. The blood cultures from the are negative. Blood cultures from the include two out of three bottles growing coag-negative Staph. Unfortunately, these are not labeled in terms of their site of collection. The LATONIA to vanc is 2 which for coag-negative Staph is probably acceptable, though there is some debate about this in the literature. Otherwise, we only have linezolid as a potentially bacteriocidal drug available for treatment. I have asked the micro lab to setup susceptibilities to daptomycin and ceftaroline. More blood cultures were obtained on the , and these are pending. The fistulogram done Friday of the perinephric abscess shows there is still a small sinus cavity adjacent to the drain. IMPRESSION: This is an extremely complex case of a woman who had a pacer put in a couple months ago and then developed a right perinephric abscess with methicillin-sensitive Staphylococcus aureus who also had positive blood cultures. Though her transesophageal echocardiogram was negative, we remain quite concerned about the possibility of pacer infection. She always has a little bit of tenderness around the pacer, even though it is not grossly erythematous or obviously infected. We now have the added complication of her followup blood cultures growing a totally different organisms, methicillin-resistant Staphylococcus epidermidis, which I suspect is a contaminant or is related to her midline, but nonetheless is even more of an issue with respect to her pacer. Over the weekend, I have discussed this case by telephone with the hospitalist, and today I have discussed the case by telephone in detail with Dr. Del Valle of Cardiology. The its our collective opinion at this point the pacer should be removed. Additionally, I think we should remove the midline, as I am concerned that it is also compromised and place a new peripherally inserted central catheter line at this time. RECOMMENDATIONS: 1. I would discontinue the doxycycline that was started over the weekend, as it is not a bacteriocidal agent. 2. Instead, will use a combination of vancomycin and cefazolin with the Vanco intended for Staph epi and the cefazolin intended for MSSA. 3. Will wait on susceptibilities from the lab on daptomycin and ceftaroline before we consider a switch to one of these. 4. Dr. Del Valle indicates he is going to go ahead and pull the catheter and will hopefully get additional cultures of the pacer itself, as well as a pacer pocket and the wires. 5. This was all explained to the patient and her father. 6. Total time spent on this case yesterday and today greater than 45 minutes.
[2016-05-27] MEDS: 0.9% Sodium Chloride 1,000 ML IV SCH ×2 (14:00→21:43)
[2016-05-27] MEDS ORDERED: HYDROmorphone 2 mg/mL Inj ONE ×2 (14:02→14:21)
--- NOTE | 2016-05-27 14:22 | DRSVH ---
PROCEDURE: X-RAY CHEST ONE VIEW, PORTABLE ([id number]) INDICATIONS: For new leads placed TECHNIQUE: One view of the chest was acquired. COMPARISON: [facility], CR, XR CHEST 1VW (PORTABLE), 05/20/2016, 17:16. FINDINGS: Surgical changes and devices: Right neck single chamber cardiac pacer present in expected position. Left pacer pulse generator and leads have been removed. Lungs and pleura: No pleural effusions or pneumothorax. Lungs are clear. Mediastinum: Mediastinal contours appear normal. Heart size is normal. Bones and chest wall: No suspicious bony lesions. Overlying soft tissues appear unremarkable. IMPRESSION: No immediate complications status post cardiac pacemaker placement. Dictated by: Farhan Barrera RR Interpreted: Teresa Smith MD on 05/27/2016 at 14:22 Transcribed by: RADHA on 05/27/2016 at 14:22 Approved by: Teresa Smith M.D. on 05/28/2016 at 10:41
--- NOTE | 2016-05-27 14:43 | PROG NOTE ---
[address] [address] PROGRESS NOTE PATIENT: KAYLEE TURNER : 1980 MR#: [id number] ADMIT: 05/20/2016 JOB ID: [id number] DATE: 05/27/2016 IDENTIFICATION/HISTORY: The patient is a pleasant 36-year-old woman with a structurally normal heart. SVT ablation with slow pathway modification complicated by complete heart block status post dual-chamber pacemaker implantation. She was admitted to the hospital with MSSA bacteremia and perinephric abscess. She is being followed closely by the infectious disease service. There is concern over the device being either seated or the culprit for her bacteremia. As such I am being asked to evaluate her for device explantation/extraction. She has some tenderness over the pocket but denies any fevers, chills. She has remained afebrile. She has been on antibiotics now for an extended period of time and did have positive cultures on Friday with methicillin sensitive Staph epi felt to be a contaminant. Her perinephric abscess drain has minimal drainage and is slated to be removed. 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 I recommended pacemaker extraction with temporary permanent pacemaker placement through the right internal jugular vein to temporize what she receives in antibiotics. When she completes a course of antibiotics to be dictated in conjunction with Infectious Disease service, we will plan on reimplanting her with a permanent device on the contralateral side (right side). I explained all of this to her and her father in detail including risks and benefits. Ultimately, she wishes to proceed. PLAN: Left-sided pacemaker system explantation with removal of capsule and cultures to be sent from both the capsule and the leads. Subsequent temporary permanent right IJ pacemaker placement followed by antibiotic course followed by reimplant on the contralateral side with a permanent system. Thank you very much for allowing me to participate in the care of the patient. Please call with any questions. I spent over 1 hour with this patient, greater than 50% of the time was spent in counseling the patient.
[2016-05-27] MEDS ORDERED: HYDROmorphone 1 mg/mL Inj IVPUSH ONE (14:45)
[2016-05-27] MEDS ORDERED: Vancomycin Inj 1,000 MG in IV Premix 1 EACH IV ONE (16:25)
--- NOTE | 2016-05-27 16:55 | PCM.PNMED ---
Subjective Date of Service May 27, 2016 Subjective Patient without complaints chest pain, dyspnea, nausea vomiting, awaiting her pacemaker removal procedure today Exam Vital Signs Vital Sign - Last Date Time Temp Pulse Resp B/P Pulse Ox O2 Delivery O2 Flow Rate FiO2 05/27/16 16:00 70 15 109/60 98 Nasal Cannula 1.00 05/27/16 09:12 36.6 Intake and Output 05/26/16 05/26/16 05/27/16 Cumulative From/Thru 15:00 23:00 07:00 05/20/16 15:41 - 05/27/16 06:34 Intake Total 1259 ml 864 ml 46237 ml Output Total 2100 ml 500 ml 43610 ml Balance -841 ml 364 ml 4607 ml Intake Oral 790 ml 100 ml 7447 ml IV Total 469 ml 764 ml 8055 ml Output Urine Total 2100 ml 500 ml 18478 ml Drainage Total 0 ml 0 ml 45 ml # Voids 4 # Bowel Movements 0 Exam Gen.- A+ O 3 no apparent distress. Obese female sitting up in bed Eyes- open conjunctiva clear, pupils equal nonicteric ENT- ears normal, nose normal Neck- supple/trach midline CVS- RRR Lungs-regular rate no accessory muscles GI-generous pannus Musc- moving 4 no obvious deformity Neuro- cranial nerves II through XII intact to gross examination, nonfocal Skin- warm and dry, no rashes/lesions wound noted left-sided chest 1/2 inches long. Clean dry and intact Psych- pleasant and appropriate, Lab and Diagnostics Result Diagram: 05/25/16 0440 05/25/16 0440 Cardiac Echo Impressions 05/06/16 Interpretation Summary The left ventricle is mildly dilated. Left ventricular systolic function is mild to moderately reduced. The ejection fraction is estimated to be 45-50%. There is significant hypokinesis of the mid and distal septum and apex in addition to the distal inferior wall. This may be related to RV apical pacing however it may also represent ischemia in the distribution of the LAD. This is new c/w the prior exam from 12/12/2015. There is a RA pacemaker lead identified however the RV lead is not well seen. No obvious vegetation seen. There is mild to moderate mitral regurgitation. There is mild to moderate aortic regurgitation. The AI jet is poorly visualized and it is difficult to occupational health specialist the cause and severety of the Aortic insufficency based on the current exam. The AI and MR were not seen on the prior exam. No other echocardiographic abnormalities seen. A AJIT exam would likely be beneficial in better evaluating the etiology and severity of the AI and MR as well as excluding a vegetation on the pacemaker leads if clinically appropriate. Assessment & Plan 36-year-old female status post pacemaker for 3'block from ablation for SVT presenting from [facility] 05/20 MSSA perinephric abscess/bacteremia that has caused the pacemaker to be infected. She has recently grown out MRSA. 05/27 medically complex patient is likely going to the PCU postprocedure # Pacemaker infection possilby causing below MSSA bacteremia,acute,poa -No evidence of Endocarditis given AJIT results. Pacemaker infection seeding hematogenously to perinephric area is the most likely explanation given the fact : No urinary complaints , urine analysis and urine culture negative all along. -NEW ONSET aortic insufficiency and mitral regurgitation with some systolic dysfunction seen on echo on 05/06. Unusual organism for UTI and perinephric abscess. subacute course. -Cardiology and ID input appreciated, plan for - pacemaker removal 05/27 # MSSA/staph epidermidis -On cefazolin/vancomycin as per ID thank you for recommendations #Perinephric abscess status post percutaneous drain -Deferred to ID on timing of drain removal #Type I diabetes with recent DKA -Continue home Lantus 40 units in a.m. 50 units at bedtime.lowered am lantus to 20 due to blood glucose of 90 -Sliding-scale # Recent SVT s/p ablation -telemetry # Recent pacemaker insertion for complete heart block - Dr. Del Valle to facilitate pacemaker removal on Friday -Temporary pacing versus replacement pacemaker management per cardiology #Hypothyroidism -Continue Synthroid 250 MCG daily -TSH WNL #PTSD/anxiety -Continue home meds full code Disposition: To be decided after procedure on Friday GI Prophylaxis: Proton Pump Inhibitor VTE Prophylaxis: Sub-Q Enoxaparin VTE Mechanical Devices: Intermittant Pneumatic CD Resuscitation Status: CPR: Attempt Resuscitation Damian Castanon MD May 27, 2016 16:55 GI Prophylaxis: Proton Pump Inhibitor VTE Prophylaxis: Sub-Q Enoxaparin VTE Mechanical Devices: Intermittant Pneumatic CD Resuscitation Status: CPR: Attempt Resuscitation Damian Castanon MD May 27, 2016 16:55
--- NOTE | 2016-05-27 17:13 | PCM.CONPHA ---
Subjective Transferred from [facility] due to perinephric abscess and bacteremia for AJIT. Reason for Pharmacy Consult: Vancomycin Dosing Assessment/Plan Assessment/Plan Pharmacy Kinetic Dosing Vancomycin Indication: Bacteremic right perinephric abscess with probable pacer infection Vanc goal trough: 15-20 mcg Pt wt: 113.4kg (IBW: 54.7kg ; AdjBW: 78.2kg) Other ABX: Ancef SCr: 0.56 WBC: 7.3, afebrile Cultures: Blood pending; MRSA this visit, MSSA from outside hospital cultures Assessment/Plan: - Loading dose of vancomycin 2,000mg given as two separate 1,000mg doses -Will schedule vancomycin to 1,500 mg Q12H based on rounding down of actual BW due to obesity. May consider Q8H dosing based on pt response. -Will schedule trough level to be drawn on 05/29/16 @1130. Pharmacy appreciates consult and will continue to monitor. Thanks, Lalo Fernandez, PharmD Lalo Fernandez May 27, 2016 17:13
[2016-05-27] MEDS: Vancomycin Dose per Pharmacist XX SCH (17:24)
[2016-05-27] MEDS: Ondansetron 2 mg/mL 2 mL Inj IVPUSH PRN (17:48)
--- NOTE | 2016-05-27 20:59 | OP ---
[address] [address] OPERATIVE REPORT PATIENT: KAYLEE TURNER : 1980 MR#: [id number] ADMIT: 05/20/2016 JOB ID: [id number] DATE OF SURGERY: 05/27/2016 PREOPERATIVE DIAGNOSIS(ES): 1. Methicillin-sensitive Staphylococcus aureus bacteremia. 2. Complete heart block with dual-chamber pacemaker in place. POSTOPERATIVE DIAGNOSIS(ES): 1. Methicillin-sensitive Staphylococcus aureus bacteremia. 2. Complete heart block with dual-chamber pacemaker in place. PROCEDURES PERFORMED: 1. Dual-chamber pacemaker system extraction from the left side with capsulectomy and drain placement. 2. Temporary permanent pacemaker placement through the right internal jugular vein. 3. Fluoroscopy. SURGEON: Lowell Del Valle MD, electrophysiology. TEA TREE FARM WORKER: Victor Hugo Sanders. EXPLANTED DEVICES: 1. [employer] pulse generator, model HD4325, serial #[id number]. 2. Right atrial lead [employer] 2088 TC 46 cm, serial #[id number]. 3. RV lead [employer] 2088 TC 52 cm, serial #[id number]. IMPLANTED DEVICES: 1. [employer] pulse generator, Model TS3620, serial #[id number]. 2. RV lead [employer] 2088 TC 52 cm, serial #[id number]. ANESTHESIA: Bolus dosing of Versed and fentanyl were used for appropriate level of sedation. 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 She comes in to the hospital bacteremic with a perinephric abscess and concern for pacemaker system infection. After discussion of risks and benefits of pacemaker system explant and placement of a temporary permanent pacemaker system to the right IJ, she opted to proceed. PROCEDURAL DESCRIPTION: Following informed consent, the patient was taken to the EP laboratory in a fasting state where she was prepped and draped in usual sterile fashion. The left infraclavicular surgical scar was infiltrated with 60 cc of a 50/50 mixture bupivacaine and lidocaine. Once adequate sedation had been achieved and local incision was performed overlying the previous surgical scar, dissection was carried down to the capsule and leads and generator were freed loose of adhesions. The patient had an escape rhythm in the high 50s/low 60s and therefore no temporary wire was placed. The leads were disconnected from the chronic generator. The anchoring sleeves were then freed loose. Stylets were placed through the lumens of the two leads and the fixation screws were retracted. The leads were removed without issue and completely explanted from the body. The capsule was then removed after adequate anesthetic infusion. All capsule material as well as two swabs and the leads were sent for Gram stain and culture. The pocket was then copiously irrigated with antibiotic solution using an irrigating system. A drain was placed into the pocket and externalized laterally. The wound was then approximated with angelique. A suction bulb was placed to the drain. We then reprepped and redraped the right neck region. This region was infiltrated with 1% lidocaine. Then, under ultrasound guidance and using a micropuncture needle, the right internal jugular vein was accessed. Over an 0.35 J guidewire, a 6-Persian tear-away sheath was advanced. Through this sheath, an active fixation [employer] pacemaker lead was advanced into the RV apex. Extensive mapping was needed to find an area of adequate sensing and threshold. The lead was affixed in position. It was connected to the external analyzer and used to sense the R waves, impedance, capture threshold was checked to 10 V and there was no evidence of diaphragmatic stimulation. Once the position and redundancy of the leads was confirmed on multiple views, the lead was anchored to the external neck using its associated anchoring sleeve and 2-0 Ethibond sutures. It was then connected to a generator. The entire system was affixed to the lateral right neck using another 0 Ti-Cron suture. A dressing was then placed. The patient tolerated the procedure well and was taken back to the recovery area. COMPLICATIONS: None. ESTIMATED BLOOD LOSS: 10 to 20 cc. DEVICE MEASURED DATA: 8.1 mV, 540 ohms, 0.5 V at 0.4 msec. FINAL PROGRAM PARAMETERS: VVIR 80 beats per minute. IMPRESSION: Successful dual-chamber pacemaker system explantation, capsulectomy and placement of a right temporary permanent pacemaker system. PLAN: 1. Stat portable chest x-ray with PA and lateral chest x-ray in the morning. 2. IV antibiotics per infectious disease service. 3. Reimplant on the right side after an adequate course of intravenous antibiotics. ATTENDING STATEMENT: Lowell Del Valle MD, electrophysiology attending was present for and supervised/performed all aspects of this procedure.
[2016-05-27] MEDS: Vancomycin Inj 1,500 MG in 0.9% Sodium Chloride 500 ML IV SCH (23:38)
[2016-05-28] VITALS (8 sets, daily range): BP systolic 109–135; BP diastolic 56–80; PULSE 68–77; RESP 16–18; O2SAT 93–100
[2016-05-28] MEDS: HYDROmorphone 1 mg/mL Inj IVPUSH PRN ×8 (00:49→22:30)
[2016-05-28] MEDS: CeFAZolin Inj 2 GM in IV Premix 1 EACH IV SCH ×3 (03:05→18:17)
[2016-05-28] MEDS: Pantoprazole 40 mg ER24 Tablet PO SCH ×2 (07:37→21:20)
[2016-05-28] MEDS: MeTOProlol XL 50 mg ER24 Tablet PO SCH ×2 (07:37→21:20)
[2016-05-28] MEDS: Sodium Chloride LOK Flush 10 mL Syringe IVFLUSH SCH ×3 (07:39→23:59)
[2016-05-28] MEDS: Insulin LISPRO 300 Unit/3 mL Inj SUBQ SCH ×4 (07:51→21:25)
[2016-05-28] MEDS: Insulin GLARgine 100 Unit/mL Syringe SUBQ SCH ×2 (07:51→21:25)
[2016-05-28] MEDS: Vancomycin Dose per Pharmacist XX SCH (08:13)
[2016-05-28] MEDS: Venlafaxine XR 75 mg ER24 Capsule PO SCH (09:03)
[2016-05-28] MEDS: 0.9% Sodium Chloride 1,000 ML IV SCH ×2 (09:50→19:50)
--- NOTE | 2016-05-28 10:35 | DRSVH ---
PROCEDURE: X-RAY CHEST, TWO VIEWS ([id number]) INDICATIONS: For new lead placement TECHNIQUE: 2 views of the chest were acquired. COMPARISON: [facility], CR, XR CHEST 2VW, 03/28/2016, 6:43. [facility], CR, XR CHEST 1VW (PORTABLE), 05/27/2016, 14:05. FINDINGS: Surgical changes and devices: Stable positioning of right neck single lead cardiac pacer. Surgical s taples and a drain projected over the mid left lung related to removed cardiac pulse generator. Lungs and pleura: Mild edema is suspected and patchy bibasilar airspace opacities. No pneumothorax. Mediastinum: Mediastinal contours are normal. Heart size is normal. Bones and chest wall: No suspicious bony abnormalities. Soft tissues appear unremarkable. IMPRESSION: 1. Stable positioning of right neck single lead cardiac pacer. 2. Mild edema and/or pneumonia versus atelectasis involving the lung bases. Dictated by: Farhan Barrera RRA Interpreted: Aden Amador MD on 05/28/2016 at 10:34 Transcribed by: FRANCIS on 05/28/2016 at 10:35 Approved by: Aden Amador M.D. on 05/28/2016 at 11:30
[2016-05-28] MEDS: Vancomycin Inj 1,500 MG in 0.9% Sodium Chloride 500 ML IV SCH ×2 (11:44→23:06)
--- NOTE | 2016-05-28 16:22 | DRSVH ---
PROCEDURE: CT ABDOMEN WITH CONTRAST ([id number]) INDICATIONS: Right perinephric abscess s/p drain at [place]. ?Remove TECHNIQUE: After the administration of intravenous contrast, 5 mm thick sections acquired from the diaphragm to the iliac crests. 5 mm coronal and sagittal reformats were performed. For radiation dose reduction, the following was used: automated exposure control, adjustment of mA and/or kV according to patient size. COMPARISON: [facility], CR, XR CHEST 2VW, 05/28/2016, 6:40. [facility], CT, ABDOMEN WITH CONTRAST, 05/16/2016, 10:02. [facility], CT, ABDOMEN WITHOUT CONTRAST, 05/20/2016, 7:39. FINDINGS: Image quality: Excellent. Lung bases: There are bilateral pleural effusions and bibasilar atelectasis. Pleural effusions have s lightly increased compared to the last CT on 05/20/2016. Heart size is normal. Solid organs: There is an abscess drain in the right upper quadrant just lateral to the inferior delmar e of the right kidney. There is a small residual collection medial to the tip of the catheter measuri ng 1.1 x 3.0 cm. There is mild perinephric stranding around the right kidney. Kidneys demonstrate nor mal size and enhancement, without hydronephrosis. There is diffuse hepatic fatty infiltration. Liver and spleen are normal in size and enhancement. Ga llbladder is surgically absent. Biliary system is non dilated. Pancreas enhances normally. No adre nal nodules. Peritoneum and bowel: Bowel loops demonstrate normal wall thickness and caliber. No free fluid or a ir. Nodes and vessels: No retroperitoneal or mesenteric adenopathy by size criteria. Aorta and inferior vena cava are normal in size. Miscellaneous: No ventral hernias. There is soft tissue edema in flanks bilaterally, right greater than left. IMPRESSION: 1. This is an abscess drain just lateral to the inferior pole of the right kidney. There is a tiny re sidual abscess cavity medial to the drainage catheter measuring 1.1 x 3.0 cm. There is mild perinephr ic stranding around the right kidney. 2. Hepatic steatosis. 3. Bilateral effusions, increased. 4. Soft tissue edema in flanks bilaterally, right greater than left. Dictated by: Aden Amador M.D. on 05/28/2016 at 16:13 Approved by: Aden Amador M.D. on 05/28/2016 at 16:21
--- NOTE | 2016-05-28 16:38 | PCM.PNMED ---
Subjective Date of Service May 28, 2016 Subjective complains of pain at the site of recently removed pacer and right neck pain at site of recently placed temp pacer Exam Vital Signs Vital Sign - Last Date Time Temp Pulse Resp B/P Pulse Ox O2 Delivery O2 Flow Rate FiO2 05/28/16 13:05 37.2 68 16 128/76 95 Room Air 05/28/16 04:20 1.00 Intake and Output 05/27/16 05/27/16 05/28/16 Cumulative From/Thru 15:00 23:00 07:00 05/20/16 15:41 - 05/28/16 06:12 Intake Total 120 ml 1449 ml 16554 ml Output Total 1000 ml 1615 ml 23767 ml Balance -880 ml -166 ml 3561 ml Intake Oral 0 ml 200 ml 7647 ml IV Total 120 ml 1249 ml 9424 ml Output Urine Total 1000 ml 1600 ml 50330 ml Drainage Total 15 ml 60 ml # Voids 4 # Bowel Movements 0 General: Alert, Cooperative, No Acute Distress Head: Normal Eyes: Scleral Anicteric Nose: Mucous Membr Moist/Rennert Mouth: Mucous Membr Moist/Rennert Neck: Supple Chest & Lungs: Chest Wall Normal, Clear to auscultation & percussion Cardiovascular: Regular Rate/Rhythm Abdomen: Non-tender, Non-distended, Normoactive bowel tones, Soft Extremities: No cyanosis/clubbing/edma bilat, Other (right perinephric tube in place) Neurological: Grossly Neurologically Intact, Normal Speech IVs and Medications Medications Reviewed: Medications were reviewed in detail Lab and Diagnostics Result Diagram: 05/25/16 0440 05/28/16 1215 Cardiac Echo Impressions 05/06/16 Interpretation Summary The left ventricle is mildly dilated. Left ventricular systolic function is mild to moderately reduced. The ejection fraction is estimated to be 45-50%. There is significant hypokinesis of the mid and distal septum and apex in addition to the distal inferior wall. This may be related to RV apical pacing however it may also represent ischemia in the distribution of the LAD. This is new c/w the prior exam from 12/12/2015. There is a RA pacemaker lead identified however the RV lead is not well seen. No obvious vegetation seen. There is mild to moderate mitral regurgitation. There is mild to moderate aortic regurgitation. The AI jet is poorly visualized and it is difficult to offal icer poultry the cause and severety of the Aortic insufficency based on the current exam. The AI and MR were not seen on the prior exam. No other echocardiographic abnormalities seen. A AJIT exam would likely be beneficial in better evaluating the etiology and severity of the AI and MR as well as excluding a vegetation on the pacemaker leads if clinically appropriate. Assessment & Plan 36-year-old female status post pacemaker for 3 'block from ablation for SVT presenting from [facility] 05/20 MSSA perinephric abscess/bacteremia that has caused the pacemaker to be infected. # Pacemaker infection possibly causing below MSSA bacteremia,acute,poa -No evidence of Endocarditis given AJIT results. Pacemaker infection seeding hematogenously to perinephric area is the most likely explanation given the fact : No urinary complaints , urine analysis and urine culture negative all along. -NEW ONSET aortic insufficiency and mitral regurgitation with some systolic dysfunction seen on echo on 05/06. - appreciate Cardiology and ID consults. will f/u w/ recs - post Dual-chamber pacemaker system extraction from the left side with capsulectomy and drain placement and Temporary permanent pacemaker placement through the right internal jugular vein on 05/27 - Abx as noted below # Acute bacteremia with MSSA/staph epidermidis. present on admission -On cefazolin/vancomycin as per ID # Acute Perinephric abscess, present on admission. - On May 17 at [facility], Radiology placed a percutaneous drain into the right perinephric fluid collection, which yielded purulent material which turned out to be clindamycin resistant MSSA. - timing of drain removal per ID recs # Type I diabetes with recent DKA - Continue Lantus (am lantus was lowered to 20 earlier due to blood glucose of 90) - Sliding-scale # Recent SVT s/p ablation - telemetry # Recent pacemaker insertion for complete heart block - s/p pacer removal as noted above - Temporary pacing versus replacement pacemaker management per cardiology # Hypothyroidism - Continue Synthroid 250 MCG daily - TSH WNL # PTSD/anxiety - Continue home meds Dispo: 2-3 days GI Prophylaxis: Proton Pump Inhibitor VTE Prophylaxis: Sub-Q Enoxaparin VTE Mechanical Devices: Intermittant Pneumatic CD Resuscitation Status: CPR: Attempt Resuscitation Time spent 37 min Danyel Rojas May 28, 2016 16:38
--- NOTE | 2016-05-28 18:47 | PROG NOTE ---
[address] [address] PROGRESS NOTE PATIENT: KAYLEE TURNER : 1980 MR#: [id number] ADMIT: 05/20/2016 JOB ID: [id number] DATE: 05/28/2016 REASON FOR FOLLOWUP: Infected pacemaker with right perinephric abscess. INTERVAL HISTORY: The past 24 hours, the patient has been free of fevers or chills. She has denied headache or shortness of breath. She does have considerable pain where her pacer was removed in her left upper chest and also has some right flank pain still where a perinephric abscess was and where the drain remains. There is little in the way of new complaints today, however. PHYSICAL EXAMINATION: Reveals a consistently afebrile woman, temp 36.7, pulse 70, respiratory rate 16, blood pressure 123/76. She is saturating well on room air. Examination of the mental status reveals it to be completely clear. Oral cavity benign. Lungs clear. Cardiac exam without new murmur. Regular rate and rhythm noted. The left chest is dressed where the pacer was removed. The right perinephric drain was still present but discussed this case with the interventional radiologist who stated that the followup CT showed that the abscess size was now minimal and the drain was not present within the minimal residual abscess anyway and so they recommended the drain be pulled. This was done by Dr. Griggs under the direction of Dr. Dale late this afternoon without complication. Patient's abdomen is essentially benign today. No new skin rashes noted. She is neurologically intact. LABORATORIES: Include white count 7300, platelet count 364, creatinine 0.59. LFTs normal. Micro is of great interest. Recall that she had multiple cultures for MSSA positive at [facility], May 18 and . Starting May 20, all blood cultures are negative, except for one set of two bottles done on May 23, which grew coag-negative Staph, so after May 19, we have 12 blood culture bottles drawn between May 20 and May 26, two of which from one set grew coag-negative Staph. Whether this represents contaminant or is truly part of her infectious process is unclear. Recall that back in [place] the perinephric abscess, as well as the blood cultures grew MSSA. IMAGING: Today includes a CT scan of the abdomen which shows a tiny residual abscess cavity medial to the catheter. There is mild perinephric stranding around the kidney. IMPRESSION: This is an extraordinarily complicated case of a woman who had a pacer placed a couple of months ago and then developed a right-sided perinephric abscess which was bacteremic and due to Methicillin-sensitive staphylococcus aureus. After transfer from [facility], we have gotten multiple negative blood cultures but we are perplexed by the one set in which both bottles grew coag-negative staph, raising the possibility of contamination or is there a second pathogen. The other question has been whether or not her pacer was infected, but Dr. Del Valle decided to cut to the alda and remove the pacer which was done yesterday. At this point, we are giving the patient IV antibiotics with vancomycin and cefazolin for the MSSA and coag-negative staph while we await additional blood cultures. After extensive discussion with Dr. Khanna, we have decided that if the patient's blood cultures remain negative through Friday along with normal white count and absence of fever, it may be reasonable to go ahead and place a new pacer, as early as Friday, as we have no evidence of endocarditis or ongoing infection. My only concern about that is the very small residual abscess in the perinephric space but we do plan to continue with a long course of antibiotics. The other confusing part of this case is whether we should continue to treat the coag-negative staph or just the MSSA that was the initial infection. RECOMMENDATIONS: 1. The drain was removed today in the right perinephric area. 2. Will continue with vancomycin and cefazolin for the time being with possible transition to a single antibiotic going forward. 3. Tentatively the patient should be ready for replacement of the pacer on Friday but this will be based on her clinical course and lab studies between now and then.
[2016-05-29] VITALS (7 sets, daily range): BP systolic 121–145; BP diastolic 72–79; PULSE 70–72; RESP 18–20; O2SAT 93–97
[2016-05-29] MEDS: HYDROmorphone 1 mg/mL Inj IVPUSH PRN ×8 (01:34→22:34)
[2016-05-29] MEDS: CeFAZolin Inj 2 GM in IV Premix 1 EACH IV SCH ×3 (02:25→18:11)
[2016-05-29] MEDS: Pantoprazole 40 mg ER24 Tablet PO SCH ×2 (07:47→21:04)
[2016-05-29] MEDS: MeTOProlol XL 50 mg ER24 Tablet PO SCH ×2 (07:47→21:05)
[2016-05-29] MEDS: LORazepam 1 mg Tablet PO PRN (07:48)
[2016-05-29] MEDS: Ondansetron 2 mg/mL 2 mL Inj IVPUSH PRN (07:48)
[2016-05-29] MEDS: Sodium Chloride LOK Flush 10 mL Syringe IVFLUSH SCH ×2 (07:52→13:44)
[2016-05-29] MEDS: Venlafaxine XR 75 mg ER24 Capsule PO SCH (07:58)
[2016-05-29] MEDS: Insulin LISPRO 300 Unit/3 mL Inj SUBQ SCH ×4 (08:00→21:19)
[2016-05-29] MEDS: Vancomycin Dose per Pharmacist XX SCH (08:00)
[2016-05-29] MEDS: Insulin GLARgine 100 Unit/mL Syringe SUBQ SCH ×2 (08:00→21:06)
[2016-05-29] MEDS ORDERED: Vancomycin Serum Trough XX ONE (11:00)
[2016-05-29] MEDS: Vancomycin Inj 1,500 MG in 0.9% Sodium Chloride 500 ML IV SCH (11:54)
--- NOTE | 2016-05-29 14:20 | PROG NOTE ---
[address] [address] PROGRESS NOTE PATIENT: KAYLEE TURNER : 1980 MR#: [id number] ADMIT: 05/20/2016 JOB ID: [id number] DATE: 05/29/2016 REASON FOR FOLLOWUP: MSSA bacteremia with infected perinephric abscess in a patient with a recently placed pacer. INTERVAL HISTORY: Recall that Dr. Del Valle has now removed the pacer and we are waiting for a period of negative blood cultures before perhaps installing a new pacer on May 31. The patient overnight has been free of fever or chills. She has had no new chest pain, shortness of breath, or cough. She does have some pain at the site where her left pacer system was explanted. She also has some minimal pain where the right perinephric drain was pulled yesterday. No abdominal pain. No diarrhea. PHYSICAL EXAMINATION: Reveals an afebrile woman. Temp 37.1, pulse 70, blood pressure 127/75. She is saturating well on room air. Examination of the mental status is normal. Oral cavity likewise benign. The left chest pacer explantation site is dressed, and I did not remove those dressings this morning, but the area around it appears benign. The temporary pacer is present in the right IJ, and that looks benign. Lungs are clear. Cardiac tones without significant murmur. Abdomen soft and nontender. No skin rash. LABORATORIES: Include a white count stable which has not been done for the past several days. Creatinine 0.59, and that was done yesterday. Follow up blood cultures remain negative. Numerous cultures done from the pacer explantation on the are all negative. The blood cultures from the are negative. Two bottles from one set done on the were positive for coag-negative staph, which is daptomycin and ceftaroline susceptible but oxacillin resistant, unfortunately. Recall that the prior cultures done in [place] from the blood and the perinephric abscess grew MSSA. Yesterday's followup abdominal CT showed a small residual area of abscess which was described as tiny, and the drain was pulled. IMPRESSION: This is an extraordinarily complicated case of a woman with high-grade methicillin-sensitive Staphylococcus aureus bacteremia in a right perinephric abscess several weeks after placement of a pacer which always seem to be a bit painful. After a considerable discussion, the pacer was removed on the and a temporary pacer placed. Our hope is to put in a new pacer on May 31 after 3-4 days of negative blood cultures. The only concern with that is that we still have a small residual perinephric abscess, and we had the two unexplained blood cultures on the which grew coag-negative Staphylococcus which is likely contaminant but a bit worrisome nonetheless. RECOMMENDATIONS: 1. Will continue with vancomycin and cefazolin for the time being. 2. Will follow closely the blood cultures as well as the cultures taken from the pacer. 3. By tomorrow evening, hopefully will have made a final decision on if the patient is cleared for pacer reimplantation on Friday the or if we should wait another several days or a week with continued antibiotics and negative blood cultures before placement of the new pacer.
--- NOTE | 2016-05-29 15:00 | PCM.PNMED ---
Subjective Date of Service May 29, 2016 Subjective denies any new issues/complaints. reports some nausea but no vomiting. Exam Vital Signs Vital Sign - Last Date Time Temp Pulse Resp B/P Pulse Ox O2 Delivery O2 Flow Rate FiO2 05/29/16 12:35 36.7 72 18 136/73 96 Room Air 05/28/16 04:20 1.00 Intake and Output 05/28/16 05/28/16 05/29/16 Cumulative From/Thru 15:00 23:00 07:00 05/20/16 15:41 - 05/29/16 06:11 Intake Total 1466 ml 721 ml 60082 ml Output Total 950 ml 10 ml 73468 ml Balance 516 ml 711 ml 4788 ml Intake Oral 811 ml 100 ml 8558 ml IV Total 655 ml 621 ml 05056 ml Output Urine Total 950 ml 0 ml 08096 ml Drainage Total 0 ml 10 ml 70 ml # Voids 4 # Bowel Movements 0 0 Exam General: Alert, Cooperative, No Acute Distress Head: Normal Eyes: Scleral Anicteric Nose: Mucous Membr Moist/Dorris Mouth: Mucous Membr Moist/Dorris Neck: Supple, temp pacer in place on the right Chest & Lungs: Chest Wall Normal, Clear to auscultation bilat Cardiovascular: Regular Rate/Rhythm Abdomen: Non-tender, Non-distended, Normoactive bowel tones, Soft Extremities: No cyanosis/clubbing/edema bilat, Other (right perinephric tube in place) Neurological: Grossly Neurologically Intact, Normal Speech IVs and Medications Medications Reviewed: Medications were reviewed in detail Lab and Diagnostics Result Diagram: 05/25/16 0440 05/28/16 1215 Cardiac Echo Impressions 05/06/16 Interpretation Summary The left ventricle is mildly dilated. Left ventricular systolic function is mild to moderately reduced. The ejection fraction is estimated to be 45-50%. There is significant hypokinesis of the mid and distal septum and apex in addition to the distal inferior wall. This may be related to RV apical pacing however it may also represent ischemia in the distribution of the LAD. This is new c/w the prior exam from 12/12/2015. There is a RA pacemaker lead identified however the RV lead is not well seen. No obvious vegetation seen. There is mild to moderate mitral regurgitation. There is mild to moderate aortic regurgitation. The AI jet is poorly visualized and it is difficult to construction technician the cause and severety of the Aortic insufficency based on the current exam. The AI and MR were not seen on the prior exam. No other echocardiographic abnormalities seen. A AJIT exam would likely be beneficial in better evaluating the etiology and severity of the AI and MR as well as excluding a vegetation on the pacemaker leads if clinically appropriate. Assessment & Plan 36-year-old female status post pacemaker for 3 'block from ablation for SVT presenting from [facility] 05/20 MSSA perinephric abscess/bacteremia that has caused the pacemaker to be infected. # Pacemaker infection possibly causing below MSSA bacteremia,acute,poa -No evidence of Endocarditis given AJIT results. Pacemaker infection seeding hematogenously to perinephric area is the most likely explanation given the fact : No urinary complaints , urine analysis and urine culture negative all along. -NEW ONSET aortic insufficiency and mitral regurgitation with some systolic dysfunction seen on echo on 05/06. - appreciate Cardiology and ID consults. will f/u w/ recs - post Dual-chamber pacemaker system extraction from the left side with capsulectomy and drain placement and Temporary permanent pacemaker placement through the right internal jugular vein on 05/27 - Abx as noted below # Acute bacteremia with MSSA/staph epidermidis. present on admission -On cefazolin/vancomycin as per ID # Acute Perinephric abscess, present on admission. - On May [address] [facility], Radiology placed a percutaneous drain into the right perinephric fluid collection, which yielded purulent material which turned out to be clindamycin resistant MSSA. - drain removed on 05/28 per ID recs # Type I diabetes with recent DKA - Continue Lantus (am lantus was lowered to 20 earlier due to blood glucose of 90) - Sliding-scale # Recent SVT s/p ablation - telemetry # Recent pacemaker insertion for complete heart block - s/p pacer removal as noted above - Temporary pacing versus replacement pacemaker management per cardiology ( earliest this Friday vs later pending ID recs) # Hypothyroidism - Continue Synthroid 250 MCG daily - TSH WNL # PTSD/anxiety - Continue home meds Dispo: 3-4 days GI Prophylaxis: Proton Pump Inhibitor VTE Prophylaxis: Sub-Q Enoxaparin VTE Mechanical Devices: Intermittant Pneumatic CD Resuscitation Status: CPR: Attempt Resuscitation Danyel Rojas May 29, 2016 15:00
--- NOTE | 2016-05-29 16:00 | PCM.PHAPRO ---
Progress Transferred from [facility] due to perinephric abscess and bacteremia for AJIT. VANCOMYCIN DOSING PER PHARMACY Dose: 1500mg Q12h Trough: 9.8 Doses were administered within range and trough was drawn appropriately. Source of infection (pacer) has been removed as of 05/27. Currently being followed by ID team. Will increase dose of vancomycin to 1750mg Q12h with trough to be drawn 05/31@ 1100. Pharmacy will continue to monitor. Lalo Fernandez, PharmLalo Espinoza May 29, 2016 16:00
[2016-05-29] MEDS ORDERED: Vancomycin Inj 1,750 MG in 0.9% Sodium Chloride 500 ML IV SCH (23:30)
[2016-05-30] VITALS (7 sets, daily range): BP systolic 114–144; BP diastolic 77–87; PULSE 70–72; RESP 16–20; O2SAT 92–97
[2016-05-30] MEDS: Sodium Chloride LOK Flush 10 mL Syringe IVFLUSH SCH ×5 (00:08→21:10)
[2016-05-30] MEDS: HYDROmorphone 1 mg/mL Inj IVPUSH PRN ×8 (01:34→22:34)
[2016-05-30] MEDS: Ondansetron 2 mg/mL 2 mL Inj IVPUSH PRN ×4 (02:38→20:57)
[2016-05-30] MEDS: CeFAZolin Inj 2 GM in IV Premix 1 EACH IV SCH ×3 (03:09→18:36)
[2016-05-30 06:32] LABS: Mean Corpuscular Hemoglobin 26.6 pg (27.0-35.0); Mean Corpuscular Volume 87.5 fL (81-100); Platelet Count 416 bil/L (150-400)
[2016-05-30 06:48] LABS: BASOPHILS % (AUTO) 2 % (0-3); EOSINOPHILS % (AUTO) 3 % (0-5); MONOCYTES % (AUTO) 8 % (4-12); NEUTROPHILS % (AUTO) 66 % (40-74)
[2016-05-30] MEDS: Pantoprazole 40 mg ER24 Tablet PO SCH ×2 (07:49→21:08)
[2016-05-30] MEDS: MeTOProlol XL 50 mg ER24 Tablet PO SCH ×2 (07:49→21:09)
[2016-05-30] MEDS: Venlafaxine XR 75 mg ER24 Capsule PO SCH (07:50)
[2016-05-30] MEDS: Insulin LISPRO 300 Unit/3 mL Inj SUBQ SCH ×4 (07:51→21:09)
[2016-05-30] MEDS: Insulin GLARgine 100 Unit/mL Syringe SUBQ SCH ×2 (07:54→21:09)
--- NOTE | 2016-05-30 12:42 | PROG NOTE ---
[address] [address] PROGRESS NOTE PATIENT: KAYLEE TURNER : 1980 MR#: [id number] ADMIT: 05/20/2016 JOB ID: [id number] DATE: 05/30/2016 INFECTIOUS DISEASE FOLLOWUP NOTE: REASON FOR FOLLOWUP: High-grade MSSA bacteremia secondary to perinephric abscess, with probable left pacer infection, now explanted. INTERVAL HISTORY: The patient reports she has been free of fevers or chills overnight. She continues to have pain both at the site where the left pacer was removed earlier this week, as well as pain at the site of the right IJ transvenous pacer. She has no fevers or chills as noted, no significant cough, or nausea or vomiting. She has very minimal pain at the site where the right perinephric abscess drain was pulled two days ago. PHYSICAL EXAMINATION: Reveals an afebrile woman. Temp 36.9, blood pressure 114/77. She is saturating well on room air. She is apprehensive but in no acute distress. Oral cavity unremarkable. Lungs are clear. Cardiac tones: Regular rate and rhythm without murmur. The patient's left pacer explantation site appears benign but is still dressed. On the right, the right IJ transvenous pacer appears benign as well. The abdomen is obese, soft and nontender. There is no right flank tenderness. No skin rash is noted. LABORATORIES: Include a white count of 8500, with 1% metamyelocytes, otherwise normal. Creatinine 0.55. Vancomycin trough is 9.8 yesterday. Our micro data was reviewed in detail. Recall that back on May 18 and at [facility], she had blood cultures, as well as cultures from a right perinephric abscess, which grew MSSA. The cultures from May 20 on, and we have 18 blood cultures since that date, have all been negative for MSSA, though two bottles from one set on May 23 grew a coag-negative staph, which was unfortunately oxacillin resistant but very susceptible to ceftaroline and daptomycin, with a vancomycin LATONIA of 2. IMAGING: Includes the followup CT of the kidney which shows a small, tiny residual abscess cavity 1 x 3 cm. The drain was pulled after the CT, as the drain was not in the small remaining cavity. Our most recent chest x-ray was also from the , and shows mild pulmonary edema or atelectasis involving the bases. IMPRESSION: This is an extremely complex case of a woman who a couple of months ago had a pacer placed because of complete heart block. Several weeks later, she developed methicillin-sensitive Staphylococcus aureus bacteremia with right perinephric abscess, which was drained. Because of persistent concerns that her pacer might be involved, a transesophageal echocardiography was done which was negative in terms of looking at the pacer leads, as well as the valves, but the decision was made to go ahead and remove the pacer in any event out of concern that it had been seeded or infected. We are now waiting to go ahead and install a new pacer with a tentative placement date tomorrow. Our only concerns are the coag-negative staphylococcus, which was found in one set of blood cultures on the which is most likely a contaminant. Also of concern is this very small residual abscess cavity seen on the followup CT scan. I have reviewed the literature, discussed this case with Dr. Del Valle, and thought about this in great detail. I can see arguments both for waiting a few more days and going ahead with the permanent pacer replacement. The patient has now had negative blood cultures for methicillin-sensitive Staphylococcus aureus for 10 full days, and I think there is really no chance that she currently has ongoing methicillin-sensitive Staphylococcus aureus bacteremia either intermittently or constantly. The therapy for the perinephric abscess and methicillin-sensitive Staphylococcus aureus will go on by the intravenous route for some weeks, and I think that there will be almost no chance of seeding the new pacer from whatever residual right perinephric infection may or may not be present. The presence of the coag-negative staphylococcus in the blood cultures on the is confusing. I believe it was a contaminant but I think, in view of the high stakes here, we should go ahead and cover it. My overall conclusion is that it is reasonably safe to go ahead and place the pacer on May 31, though would not be a mistake to wait over the weekend or a few more days just to watch the cultures, but there is no definitive reason I can come up with to wait beyond May 31. RECOMMENDATIONS: 1. Will stop the vancomycin at this time, as we are not achieving very high levels and the coag-negative staphylococcus has an LATONIA of 2 and a very low daptomycin LATONIA. 2. Will continue with the high-dose cefazolin. 3. Will start the patient on daptomycin. We will use a dose of 700 mg once a day which will be just slightly over 6 mg/kg. I am not adjusting this for weight, and the patient is morbidly obese, and I am doing this intentionally to make sure we have very adequate levels. 4. We will have to hold her Lipitor while we give her the daptomycin. 5. We will determine the stop date of the antibiotics tomorrow. I would anticipate a minimum of four weeks of IV antibiotics, and I think in this case we should probably use a combination of daptomycin and cefazolin to ensure optimal coverage for both the MSSA, as well as the isolated MRSE. Four weeks would seem to be reasonable considering the perinephric abscess, and I think six weeks would likely be too long, as we have no evidence of endocarditis but this will be reviewed tomorrow and will write our final antibiotic orders at that time.
--- NOTE | 2016-05-30 14:06 | PCM.PNMED ---
Subjective Date of Service May 30, 2016 Subjective denies any new issues/complaints. Exam Vital Signs Vital Sign - Last Date Time Temp Pulse Resp B/P Pulse Ox O2 Delivery O2 Flow Rate FiO2 05/30/16 12:44 36.7 70 16 136/85 96 Room Air 05/28/16 04:20 1.00 Intake and Output 05/29/16 05/29/16 05/30/16 Cumulative From/Thru 15:00 23:00 07:00 05/20/16 15:41 - 05/30/16 04:34 Intake Total 109 ml 1607 ml 690 ml 28825 ml Output Total 1350 ml 97975 ml Balance 109 ml 257 ml 690 ml 5844 ml Intake Oral 807 ml 9365 ml IV Total 109 ml 800 ml 690 ml 62603 ml Output Urine Total 1350 ml 22046 ml Drainage Total 0 ml 70 ml # Voids 4 # Bowel Movements 0 Exam General: Alert, Cooperative, No Acute Distress Head: Normal Eyes: Scleral Anicteric Nose: Mucous Membr Moist/[place] Mouth: Mucous Membr Moist/[place] Neck: Supple, temp pacer in place on the right Chest & Lungs: Chest Wall Normal, Clear to auscultation bilat Cardiovascular: Regular Rate/Rhythm Abdomen: Non-tender, Non-distended, Normoactive bowel tones, Soft Extremities: No cyanosis/clubbing/edema bilat, Other (right perinephric tube in place) Neurological: Grossly Neurologically Intact, Normal Speech IVs and Medications Medications Reviewed: Medications were reviewed in detail Lab and Diagnostics Result Diagram: 05/30/16 0610 05/30/16 0610 Cardiac Echo Impressions 05/06/16 Interpretation Summary The left ventricle is mildly dilated. Left ventricular systolic function is mild to moderately reduced. The ejection fraction is estimated to be 45-50%. There is significant hypokinesis of the mid and distal septum and apex in addition to the distal inferior wall. This may be related to RV apical pacing however it may also represent ischemia in the distribution of the LAD. This is new c/w the prior exam from 12/12/2015. There is a RA pacemaker lead identified however the RV lead is not well seen. No obvious vegetation seen. There is mild to moderate mitral regurgitation. There is mild to moderate aortic regurgitation. The AI jet is poorly visualized and it is difficult to supervisor painting the cause and severety of the Aortic insufficency based on the current exam. The AI and MR were not seen on the prior exam. No other echocardiographic abnormalities seen. A AJIT exam would likely be beneficial in better evaluating the etiology and severity of the AI and MR as well as excluding a vegetation on the pacemaker leads if clinically appropriate. Assessment & Plan 36-year-old female status post pacemaker for 3 'block from ablation for SVT presenting from [facility] 05/20 MSSA perinephric abscess/bacteremia that has caused the pacemaker to be infected. # Pacemaker infection possibly causing below MSSA bacteremia,acute,poa -No evidence of Endocarditis given AJIT results. Pacemaker infection seeding hematogenously to perinephric area is the most likely explanation given the fact : No urinary complaints , urine analysis and urine culture negative all along. -NEW ONSET aortic insufficiency and mitral regurgitation with some systolic dysfunction seen on echo on 05/06. - appreciate Cardiology and ID consults. will f/u w/ recs - post Dual-chamber pacemaker system extraction from the left side with capsulectomy and drain placement and Temporary permanent pacemaker placement through the right internal jugular vein on 05/27 - Abx as noted below # Acute bacteremia with MSSA/staph epidermidis. present on admission -On cefazolin/vancomycin initially. stopping Vanco and starting Dapto per ID recs # Acute Perinephric abscess, present on admission. - On May 17 at [facility], Radiology placed a percutaneous drain into the right perinephric fluid collection, which yielded purulent material which turned out to be clindamycin resistant MSSA. - drain removed on 05/28 per ID recs # Type I diabetes with recent DKA - Continue Lantus (am lantus was lowered to 20 earlier due to blood glucose of 90) - Sliding-scale # Recent SVT s/p ablation - telemetry # Recent pacemaker insertion for complete heart block - s/p pacer removal as noted above - Temporary pacing versus replacement pacemaker management per cardiology ( earliest this Friday vs later pending ID recs) # Hypothyroidism - Continue Synthroid 250 MCG daily - TSH WNL # PTSD/anxiety - Continue home meds Dispo: 2-3 days GI Prophylaxis: Proton Pump Inhibitor VTE Prophylaxis: Sub-Q Enoxaparin VTE Mechanical Devices: Intermittant Pneumatic CD Resuscitation Status: CPR: Attempt Resuscitation Danyel Rojas May 30, 2016 14:06
[2016-05-30] MEDS: DAPTOmycin Inj 700 MG in 0.9% Sodium Chloride 50 ML IV SCH (14:40)
[2016-05-30] MEDS ORDERED: Vancomycin Inj 1,000 MG in IV Premix 1 EACH IV ONE (17:55)
[2016-05-31] VITALS (16 sets, daily range): BP systolic 120–140; BP diastolic 61–84; PULSE 70–90; RESP 16–20; O2SAT 93–100
[2016-05-31] MEDS: HYDROmorphone 1 mg/mL Inj IVPUSH PRN ×8 (01:32→22:33)
[2016-05-31] MEDS: CeFAZolin Inj 2 GM in IV Premix 1 EACH IV SCH ×3 (01:35→18:19)
[2016-05-31] MEDS ORDERED: Vancomycin Inj 1,500 MG in 0.9% Sodium Chloride 500 ML IV SCH (06:00)
[2016-05-31 07:31] LABS: Mean Corpuscular Hemoglobin 26.1 pg (27.0-35.0); Mean Corpuscular Volume 89.3 fL (81-100)
[2016-05-31] MEDS: Pantoprazole 40 mg ER24 Tablet PO SCH ×2 (07:31→20:24)
[2016-05-31] MEDS: MeTOProlol XL 50 mg ER24 Tablet PO SCH ×2 (07:31→20:23)
[2016-05-31] MEDS: Sodium Chloride LOK Flush 10 mL Syringe IVFLUSH SCH ×4 (07:32→15:21)
[2016-05-31] MEDS: Venlafaxine XR 75 mg ER24 Capsule PO SCH (07:34)
[2016-05-31] MEDS: DAPTOmycin Inj 700 MG in 0.9% Sodium Chloride 50 ML IV SCH (07:35)
[2016-05-31 07:50] LABS: INR 1.23 ratio
[2016-05-31] MEDS ORDERED: Heparin 5,000 Units/500 mL NS Premix IV ONE ×2 (07:51→09:01)
[2016-05-31] MEDS ORDERED: Bupivacaine-MPF 0.5% 30 mL Inj ONE (07:52)
[2016-05-31] MEDS ORDERED: 0.9% Sodium Chloride 250 ML ONE (07:52)
[2016-05-31 07:56] LABS: BASOPHILS % (AUTO) 0 % (0-3); EOSINOPHILS % (AUTO) 13 % (0-5); MONOCYTES % (AUTO) 6 % (4-12); NEUTROPHILS % (AUTO) 59 % (40-74)
[2016-05-31] MEDS ORDERED: Insulin GLARgine 100 Unit/mL Syringe SUBQ SCH (08:30)
[2016-05-31] MEDS ORDERED: fentaNYL-PF 50 mCg/mL 2 mL Inj ONE ×2 (08:41→09:16)
[2016-05-31] MEDS ORDERED: Vancomycin 1,000 mg Inj ONE (08:47)
[2016-05-31] MEDS: 0.9% Sodium Chloride 1,000 ML IV SCH ×2 (10:14→20:14)
[2016-05-31] MEDS ORDERED: HYDROmorphone 2 mg/mL Inj ONE (10:56)
[2016-05-31] MEDS ORDERED: Vancomycin Serum Trough XX ONE (11:00)
--- NOTE | 2016-05-31 11:49 | DRSVH ---
PROCEDURE: X-RAY CHEST ONE VIEW, PORTABLE ([id number]) INDICATIONS: For new leads placed TECHNIQUE: One view of the chest was acquired. COMPARISON: [facility], CR, XR CHEST 1VW (PORTABLE), 03[facility]27/2016, 19:08[facility], 05/28/2016, 6:40. [facility], CR, XR CHEST 1VW (PORTABLE), 05/27, 14:05. FINDINGS: Surgical changes and devices: There is a new right chest wall dual-lead pacemaker with leads projecti ng over the right atrium and right ventricle.. Lungs and pleura: No pleural effusions or pneumothorax. There are slightly low lung volumes. Mild pulmonary vascular prominence is demonstrated suggesting mild edema. Mediastinum: Mediastinal contours appear unchanged. Heart size is normal. Bones and chest wall: No suspicious bony lesions. There are surgical angelique projecting over the le ft hemithorax from removal of prior pacemaker. IMPRESSION: 1. No evidence of pneumothorax. 2. Pulmonary vascular prominence suggesting mild edema. Dictated by: Michael Ovalle M.D. on 05/31/2016 at 11:46 Approved by: Michael Ovalle M.D. on 05/31/2016 at 11:47
--- NOTE | 2016-05-31 13:57 | OP ---
[address] [address] OPERATIVE REPORT PATIENT: KAYLEE TURNER : 1980 MR#: [id number] ADMIT: 05/20/2016 JOB ID: [id number] DATE OF SURGERY: 05/31/2016 PREOPERATIVE DIAGNOSIS(ES): 1. Bacteremia with suspected pacemaker involvement, status post explantation with placement of a temporary permanent pacemaker system to the right internal jugular. 2. Complete heart block POSTOPERATIVE DIAGNOSIS(ES): 1. Bacteremia with suspected pacemaker involvement, status post explantation with placement of a temporary permanent pacemaker system to the right internal jugular. 2. Complete heart block PROCEDURES PERFORMED: 1. Right-sided dual-chamber pacemaker implantation. 2. Removal of temporary permanent pacing system. 3. Fluoroscopy. SURGEON: Lowell Del Valle MD. ADVANCED PRACTICE REGISTERED NURSE: Victor Hugo Sanders. IMPLANTED DEVICES: 1. [employer] pulse generator, model [id number], serial #[id number]. 2. Right atrial lead, [employer], [id number], 46 cm, serial #[id number]. 3. RV lead, [employer], [id number], 52 cm, serial #[id number]. EXPLANTED DEVICE: 1. [employer] pulse generator, model [id number], serial #[id number]. 2. RV lead, [employer] [id number], 52 cm, serial #[id number]. ANESTHESIA: Bolus dosing of Versed and fentanyl with appropriate level of sedation. HISTORY: The patient is a pleasant, 36-year-old woman with preserved LV function, recent admission with bacteremia, suspected pacemaker involvement, status post extraction of her left-sided device. After discussion of risks and benefits of re implantation on the contralateral side, she opted to proceed. PROCEDURAL DESCRIPTION: Following informed signed consent, the patient was taken to the EP laboratory in the fasting state, where she was prepped and draped in the usual sterile fashion. The right neck region was prepped and draped. The pacing generator and lead were freed loose of their anchoring sutures. A stylet was placed down the lumen of the lead after it was disconnected from the generator. The patient does have an escape rhythm in the 50s. The fixation helix was retracted and the lead was pulled back. Manual pressure was held for hemostasis. We then reprepped and redraped for the implant of a new right subclavian system. The right deltopectoral region was infiltrated with 40 cc of a 50/50 mixture of bupivacaine and lidocaine. Once adequate anesthesia had been achieved, a 3 cm incision was performed just medial to the right deltopectoral groove. Dissection was carried down to the pectoralis fascia and the pocket was then fashioned using a combination of electrocautery and blunt dissection. Once adequate hemostasis had been achieved, access to the right axillary vein over the first rib was performed using a micropuncture needle twice to deploy two 0.035, 3 mm J guidewires. Over the first of these, an 8-Libyan tear-away sheath was advanced. Once the guidewire was removed, an active fixation lead was advanced to the RV outflow tract and ultimately the RV apex. The lead was affixed in position. Using its associated active fixation screw, it was connected to the external analyzer and demonstrated appropriately sensed R waves, impedance, capture threshold. The lead was checked at 10 V, and there was no evidence of diaphragmatic stimulation. Attention was now paid to the atrial lead. Over the other previously deployed J guidewire, another 8-Libyan tear-away sheath was advanced. Once the guidewire was removed, an active fixation lead was advanced to the right atrial appendage. It was affixed in position using associated fixation screw. It was connected to the external analyzer and demonstrated appropriately sensed P waves, impedance, capture threshold, and was checked to 10 V and there was no evidence of diaphragmatic stimulation. Once the position and redundancy of both leads had been confirmed in multiple fluoroscopic views, the leads were anchored to the prepectoralis fascia using associated anchoring sleeves and two Ethibond sutures. The pocket was then copiously irrigated with antibiotic solution. The leads were connected to a generator, which was positioned in the pocket and was affixed to the floor of the pocket using 1-0 Ti-Cron suture. The incision was then closed with running layers of absorbable suture. The wound was dressed with skin adhesive, as well as small wound dressing. At the end of the procedure, the needle, sponge, and instrument counts were all correct. COMPLICATIONS: None. ESTIMATED BLOOD LOSS: Negligible. DEVICE MEASURED DATA: 1. Right atrial lead 2.1 mV, 410 ohms, 1.25 V at 0.4 msec. 2. RV lead 7.6 mV, 510 ohms, 0.5 V at 0.4 msec. FINAL PROGRAM PARAMETERS: DDD 60-130 beats per minute. IMPRESSION: Successful dual-chamber pacemaker implantation. PLAN: 1. Stat portable chest x-ray. 2. PA and lateral chest x-ray in the morning. 3. Device interrogation. 4. IV antibiotics as dictated by the Infectious Disease Service. 5. Pacemaker Clinic in one week. 6. Follow up with Eddi Jansen in six weeks. ATTENDING STATEMENT: ILowell MD, contracting manager, was present for and supervised/performed all aspects of this procedure.
--- NOTE | 2016-05-31 17:03 | PCM.PNMED ---
Subjective Date of Service May 31, 2016 Subjective denies any new issues/complaints other than pain at site of new pacer. Exam Vital Signs Vital Sign - Last Date Time Temp Pulse Resp B/P Pulse Ox O2 Delivery O2 Flow Rate FiO2 05/31/16 13:24 36.6 82 18 122/72 100 Room Air 05/31/16 12:30 2.00 Intake and Output 05/30/16 05/30/16 05/31/16 Cumulative From/Thru 15:00 23:00 07:00 05/20/16 15:41 - 05/31/16 05:46 Intake Total 150 ml 622 ml 189 ml 76931 ml Output Total 0 ml 650 ml 93647 ml Balance 150 ml -28 ml 189 ml 6155 ml Intake Oral 150 ml 370 ml 9885 ml IV Total 252 ml 189 ml 40996 ml Output Urine Total 0 ml 650 ml 66166 ml Drainage Total 70 ml # Voids 4 # Bowel Movements 0 0 Exam General: Alert, Cooperative, No Acute Distress Head: Normal Eyes: Scleral Anicteric Nose: Mucous Membr Moist/[place] Mouth: Mucous Membr Moist/[place] Neck: Supple, temp pacer in place on the right Chest & Lungs: Clear to auscultation bilat. new pacer at right upper chest with dressing in place. Cardiovascular: Regular Rate/Rhythm Abdomen: Non-tender, Non-distended, Normoactive bowel tones, Soft Extremities: No cyanosis/clubbing/edema bilat, Other (right perinephric tube in place) Neurological: Grossly Neurologically Intact, Normal Speech IVs and Medications Medications Reviewed: Medications were reviewed in detail Lab and Diagnostics Result Diagram: 05/31/16 0702 05/31/16 0702 Cardiac Echo Impressions 05/06/16 Interpretation Summary The left ventricle is mildly dilated. Left ventricular systolic function is mild to moderately reduced. The ejection fraction is estimated to be 45-50%. There is significant hypokinesis of the mid and distal septum and apex in addition to the distal inferior wall. This may be related to RV apical pacing however it may also represent ischemia in the distribution of the LAD. This is new c/w the prior exam from 12/12/2015. There is a RA pacemaker lead identified however the RV lead is not well seen. No obvious vegetation seen. There is mild to moderate mitral regurgitation. There is mild to moderate aortic regurgitation. The AI jet is poorly visualized and it is difficult to action finisher the cause and severety of the Aortic insufficency based on the current exam. The AI and MR were not seen on the prior exam. No other echocardiographic abnormalities seen. A AJIT exam would likely be beneficial in better evaluating the etiology and severity of the AI and MR as well as excluding a vegetation on the pacemaker leads if clinically appropriate. Assessment & Plan 36-year-old female status post pacemaker for 3 'block from ablation for SVT presenting from [facility] 05/20 MSSA perinephric abscess/bacteremia that has caused the pacemaker to be infected. # Pacemaker infection possibly causing MSSA bacteremia,acute,poa -No evidence of Endocarditis given AJIT results. Pacemaker infection seeding hematogenously to perinephric area is the most likely explanation given the fact : No urinary complaints , urine analysis and urine culture negative all along. -NEW ONSET aortic insufficiency and mitral regurgitation with some systolic dysfunction seen on echo on 05/06. - appreciate Cardiology and ID consults. will f/u w/ recs - post Dual-chamber pacemaker system extraction from the left side with capsulectomy and drain placement and Temporary permanent pacemaker placement through the right internal jugular vein on 05/27 - post new pacemaker placement on 05/31/16 - Abx as noted below # Acute bacteremia with MSSA/staph epidermidis. present on admission -On cefazolin/vancomycin initially. stopped Vanco and started Dapto per ID recs # Acute Perinephric abscess, present on admission. - On May 17 at [facility], Radiology placed a percutaneous drain into the right perinephric fluid collection, which yielded purulent material which turned out to be clindamycin resistant MSSA. - drain removed on 05/28 per ID recs # Type I diabetes with recent DKA - Continue Lantus (am lantus was lowered to 20 earlier due to blood glucose of 90) - Sliding-scale # Recent SVT s/p ablation - telemetry # Recent pacemaker insertion for complete heart block - s/p pacer removal and replacement as noted above # Hypothyroidism - Continue Synthroid 250 MCG daily - TSH WNL # PTSD/anxiety - Continue home meds Dispo: 3-4 days GI Prophylaxis: Proton Pump Inhibitor VTE Prophylaxis: Sub-Q Enoxaparin VTE Mechanical Devices: Intermittant Pneumatic CD Resuscitation Status: CPR: Attempt Resuscitation Danyel Rojas May 31, 2016 17:03
--- NOTE | 2016-05-31 18:44 | PROG NOTE ---
[address] [address] PROGRESS NOTE PATIENT: KAYLEE TURNER : 1980 MR#: [id number] ADMIT: 05/20/2016 JOB ID: [id number] DATE: 05/31/2016 REASON FOR FOLLOWUP: Complex issues involving MSSA bacteremia, perinephric abscess, and probable pacer infection. INTERVAL HISTORY: Today, the patient successfully underwent reimplantation of a new pacer on the right side following the explantation four days ago of the pacer on the left side. She reports she has the expected pain on the right side after the placement of the new pacer, as well as some residual pain at the site of the left pacer explantation. She denies fevers, chills, or sweats. She is happy to have the temporary right IJ pacer out, as it was quite irritating. She reports no significant shortness of breath, nausea, vomiting, or diarrhea. PHYSICAL EXAMINATION: Reveals an afebrile woman. Temp 36.6, pulse 82, respiratory rate 18, blood pressure 122/72, saturating well on room air and in no acute distress. Her mental status is normal. Oral cavity negative. Lungs fairly clear. Cardiac tones without murmur. The patient has bilateral dressings now on the left where her old pacer was pulled and the right where the new pacer was just placed. The left antecubital peripheral IV is without evidence of inflammation, and the abdomen is negative. LABORATORIES: Include white count 5500 today, 13% eosinophils have sprung up which may be due to the vancomycin we just recently stopped. Creatinine 0.49. Urinalysis with 6-10 white cells. Chest x-ray done today shows the new pacer with the leads in the right atrium and right ventricle. Mild vascular prominence was noted once again, but there is no evidence of pneumothorax. IMPRESSION: This has been a long and complicated journey for this woman. She developed high-grade methicillin-sensitive Staphylococcus aureus bacteremia and right perinephric abscess several weeks after the placement of a left-sided pacer for complete heart block. After considerable debate and thought, Dr. Del Valle and I agreed it was best to remove the left-sided pacer because it was likely to have been infected by her high-grade bacteremia and may in fact have been the source of the bacteremia. That the pacer was then explanted four days ago, and after waiting for negative blood cultures and obtaining the negative transesophageal echocardiogram, the new pacer was placed on the right side today. In terms of cultures, we have innumerable negative blood cultures for methicillin-sensitive Staphylococcus aureus after transfer here on May 20. We did have two blood cultures on May 23 from one set that grew coagulase-negative staphylococcus, which I suspect was a contaminant. The explanted material has been culture negative, but just today we learned that there are two colonies of apparently different coagulase-negative staphylococcus isolates growing from the old pacer pocket on the left which I suspect are skin contaminants as well. Nonetheless, out of an abundance of caution, we have decided to treat the coagulase-negative staphylococcus that was found in May 23 blood cultures and as well of the coagulase-negative staphylococcus found in the explanted pacer pocket site with the daptomycin while we continue aggressive therapy with cefazolin for the methicillin-sensitive Staphylococcus aureus that was in the blood cultures back at [facility] when the perinephric abscess was discovered. RECOMMENDATIONS: 1. I would keep the patient in the hospital over the weekend just for pain management and to make sure there are no more complications. 2. Will continue with daptomycin and cefazolin with a plan to continue these through June 24. 3. The patient's home IV antibiotic orders have been written, and I have discussed this with [facility] today. 4. Weekly laboratories will be drawn and sent to my office. 5. I will see the patient on June 12 in followup, and I plan to see the patient on June 03, before discharge if possible. 6. A PICC line can be placed at any time, but it would not be unreasonable to hold off for a day or so. [facility]
[2016-05-31] MEDS: Insulin GLARgine 100 Unit/mL Syringe SUBQ SCH (20:39)
[2016-05-31] MEDS: Insulin LISPRO 300 Unit/3 mL Inj SUBQ SCH (20:39)
[2016-06-01] VITALS (9 sets, daily range): BP systolic 115–136; BP diastolic 75–93; PULSE 76–88; RESP 16–18; O2SAT 94–99
[2016-06-01] MEDS: CeFAZolin Inj 2 GM in IV Premix 1 EACH IV SCH ×3 (01:32→18:24)
[2016-06-01] MEDS: HYDROmorphone 1 mg/mL Inj IVPUSH PRN ×8 (01:32→23:59)
[2016-06-01] MEDS: 0.9% Sodium Chloride 1,000 ML IV SCH ×2 (05:50→16:14)
[2016-06-01] MEDS: Insulin LISPRO 300 Unit/3 mL Inj SUBQ SCH ×4 (07:44→22:00)
[2016-06-01] MEDS: DAPTOmycin Inj 700 MG in 0.9% Sodium Chloride 50 ML IV SCH (07:57)
[2016-06-01] MEDS: MeTOProlol XL 50 mg ER24 Tablet PO SCH ×2 (08:00→21:14)
[2016-06-01] MEDS: Pantoprazole 40 mg ER24 Tablet PO SCH ×2 (08:01→21:14)
[2016-06-01] MEDS: Venlafaxine XR 75 mg ER24 Capsule PO SCH (08:01)
[2016-06-01] MEDS: Sodium Chloride LOK Flush 10 mL Syringe IVFLUSH SCH ×6 (08:02→16:30)
[2016-06-01] MEDS: Insulin GLARgine 100 Unit/mL Syringe SUBQ SCH ×2 (08:03→22:11)
--- NOTE | 2016-06-01 09:17 | DRSVH ---
PROCEDURE: X-RAY CHEST, TWO VIEWS ([id number]) INDICATIONS: 36-year-old female with pacemaker placement. TECHNIQUE: 2 views of the chest were acquired. COMPARISON: [facility], CR, XR CHEST 1VW (PORTABLE), 05/31/2016, 11:27. [facility], CR, XR CHEST 2VW, 05/28/2016, 6:40. [facility], CR, XR CHEST 1VW (PORTABLE), 05/27, 14:05. FINDINGS: Surgical changes and devices: Right chest wall dual-chamber pacemaker is again noted, with leads not well visualized on the lateral projection as the patient was unable to raise her upper extremities. Left chest wall skin angelique are again noted. Lungs and pleura: Trace posterior pleural effusions are noted on the lateral projection. No pneumot horax. Lungs are clear. Mediastinum: Mediastinal contours are normal. Heart size is normal. Bones and chest wall: No suspicious bony abnormalities. Soft tissues appear unremarkable. IMPRESSION: Right chest wall dual chamber pacemaker is again noted. Trace bibasilar posterior pleural effusions are of uncertain etiology. Dictated by: Víctor Jama M.D. on 06/01/2016 at 9:14 Approved by: Víctor Jama M.D. on 06/01/2016 at 9:16
--- NOTE | 2016-06-01 13:35 | PCM.PNMED ---
Subjective Date of Service Jun 01, 2016 Subjective denies any new issues/complaints other than pain at site of new pacer. Exam Vital Signs Vital Sign - Last Date Time Temp Pulse Resp B/P Pulse Ox O2 Delivery O2 Flow Rate FiO2 06/01/16 10:17 36.7 79 18 115/75 94 Room Air 06/01/16 04:44 1.00 Intake and Output 05/31/16 05/31/16 06/01/16 Cumulative From/Thru 15:00 23:00 07:00 05/20/16 15:41 - 06/01/16 04:48 Intake Total 120 ml 1053 ml 296 ml 72897 ml Output Total 0 ml 1560 ml 87443 ml Balance 120 ml -507 ml 296 ml 6064 ml Intake Oral 120 ml 1053 ml 53215 ml IV Total 296 ml 47013 ml Output Urine Total 0 ml 1560 ml 93962 ml Drainage Total 70 ml # Voids 4 # Bowel Movements 0 Exam General: Alert, Cooperative, No Acute Distress Head: Normal Eyes: Scleral Anicteric Nose: Mucous Membr Moist/[place] Mouth: Mucous Membr Moist/[place] Neck: Supple, temp pacer in place on the right Chest & Lungs: Clear to auscultation bilat. new pacer at right upper chest with dressing in place. Cardiovascular: Regular Rate/Rhythm Abdomen: Non-tender, Non-distended, Normoactive bowel tones, Soft Extremities: No cyanosis/clubbing/edema bilat Neurological: Grossly Neurologically Intact, Normal Speech IVs and Medications Medications Reviewed: Medications were reviewed in detail Lab and Diagnostics Result Diagram: 05/31/16 0702 05/31/16 0702 Cardiac Echo Impressions 05/06/16 Interpretation Summary The left ventricle is mildly dilated. Left ventricular systolic function is mild to moderately reduced. The ejection fraction is estimated to be 45-50%. There is significant hypokinesis of the mid and distal septum and apex in addition to the distal inferior wall. This may be related to RV apical pacing however it may also represent ischemia in the distribution of the LAD. This is new c/w the prior exam from 12/12/2015. There is a RA pacemaker lead identified however the RV lead is not well seen. No obvious vegetation seen. There is mild to moderate mitral regurgitation. There is mild to moderate aortic regurgitation. The AI jet is poorly visualized and it is difficult to swatch maker the cause and severety of the Aortic insufficency based on the current exam. The AI and MR were not seen on the prior exam. No other echocardiographic abnormalities seen. A AJIT exam would likely be beneficial in better evaluating the etiology and severity of the AI and MR as well as excluding a vegetation on the pacemaker leads if clinically appropriate. Assessment & Plan 36-year-old female status post pacemaker for 3 'block from ablation for SVT presenting from [facility] 05/20 MSSA perinephric abscess/bacteremia that has caused the pacemaker to be infected. # Pacemaker infection possibly causing MSSA bacteremia,acute,poa -No evidence of Endocarditis given AJIT results. Pacemaker infection seeding hematogenously to perinephric area is the most likely explanation given the fact : No urinary complaints , urine analysis and urine culture negative all along. -NEW ONSET aortic insufficiency and mitral regurgitation with some systolic dysfunction seen on echo on 05/06. - appreciate Cardiology and ID consults. will f/u w/ recs - post Dual-chamber pacemaker system extraction from the left side with capsulectomy and drain placement and Temporary permanent pacemaker placement through the right internal jugular vein on 05/27 - post new pacemaker placement on 05/31/16 - Abx as noted below # Acute bacteremia with MSSA/staph epidermidis. present on admission -On cefazolin/vancomycin initially. stopped Vanco and started Dapto per ID recs - plan for PICC line tomorrow # Acute Perinephric abscess, present on admission. - On May 17 at [facility], Radiology placed a percutaneous drain into the right perinephric fluid collection, which yielded purulent material which turned out to be clindamycin resistant MSSA. - drain removed on 05/28 per ID recs # Type I diabetes with recent DKA - Continue Lantus (am lantus was lowered to 20 earlier due to blood glucose of 90) - Sliding-scale # Recent SVT s/p ablation - telemetry # Recent pacemaker insertion for complete heart block - s/p pacer removal and replacement as noted above # Hypothyroidism - Continue Synthroid 250 MCG daily - TSH WNL # PTSD/anxiety - Continue home meds Dispo: 2 days GI Prophylaxis: Proton Pump Inhibitor VTE Prophylaxis: Sub-Q Enoxaparin VTE Mechanical Devices: Intermittant Pneumatic CD Resuscitation Status: CPR: Attempt Resuscitation Time spent 25 min Danyel Rojas Jun 01, 2016 13:35
[2016-06-02] VITALS (10 sets, daily range): BP systolic 116–150; BP diastolic 76–86; PULSE 82–99; RESP 16–18; O2SAT 93–100
[2016-06-02] MEDS: CeFAZolin Inj 2 GM in IV Premix 1 EACH IV SCH ×3 (02:07→17:55)
[2016-06-02] MEDS: 0.9% Sodium Chloride 1,000 ML IV SCH ×3 (02:07→22:14)
[2016-06-02] MEDS: HYDROmorphone 1 mg/mL Inj IVPUSH PRN ×7 (02:56→22:32)
[2016-06-02] MEDS: Insulin LISPRO 300 Unit/3 mL Inj SUBQ SCH ×4 (07:48→22:00)
[2016-06-02] MEDS: DAPTOmycin Inj 700 MG in 0.9% Sodium Chloride 50 ML IV SCH (08:07)
[2016-06-02] MEDS: Venlafaxine XR 75 mg ER24 Capsule PO SCH (08:10)
[2016-06-02] MEDS: Pantoprazole 40 mg ER24 Tablet PO SCH ×2 (08:11→22:32)
[2016-06-02] MEDS: MeTOProlol XL 50 mg ER24 Tablet PO SCH ×2 (08:11→22:32)
[2016-06-02] MEDS: Sodium Chloride LOK Flush 10 mL Syringe IVFLUSH SCH ×6 (08:11→16:14)
[2016-06-02] MEDS: Insulin GLARgine 100 Unit/mL Syringe SUBQ SCH ×2 (09:53→21:00)
--- NOTE | 2016-06-02 14:55 | PCM.PNMED ---
Subjective Date of Service Jun 02, 2016 Subjective denies any new issues/complaints other than pain at site of new pacer. Exam Vital Signs Vital Sign - Last Date Time Temp Pulse Resp B/P Pulse Ox O2 Delivery O2 Flow Rate FiO2 06/02/16 10:20 36.8 88 18 122/81 95 Room Air 06/02/16 06:26 2.00 Intake and Output 06/01/16 06/01/16 06/02/16 Cumulative From/Thru 15:00 23:00 07:00 05/20/16 15:41 - 06/02/16 06:36 Intake Total 300 ml 1520 ml 590 ml 14640 ml Output Total 1550 ml 800 ml 1000 ml 10499 ml Balance -1250 ml 720 ml -410 ml 5124 ml Intake Oral 300 ml 1255 ml 400 ml 57893 ml IV Total 265 ml 190 ml 32782 ml Output Urine Total 1550 ml 800 ml 1000 ml 71968 ml Drainage Total 70 ml # Voids 4 # Bowel Movements 0 0 Exam General: Alert, Cooperative, No Acute Distress Head: Normal Eyes: Scleral Anicteric Nose: Mucous Membr Moist/[place] Mouth: Mucous Membr Moist/[place] Neck: Supple, temp pacer in place on the right Chest & Lungs: Clear to auscultation bilat. new pacer at right upper chest with dressing in place. Cardiovascular: Regular Rate/Rhythm Abdomen: Non-tender, Non-distended, Normoactive bowel tones, Soft Extremities: No cyanosis/clubbing/edema bilat Neurological: Grossly Neurologically Intact, Normal Speech IVs and Medications Medications Reviewed: Medications were reviewed in detail Lab and Diagnostics Result Diagram: 05/31/16 0702 05/31/16 0702 Cardiac Echo Impressions 05/06/16 Interpretation Summary The left ventricle is mildly dilated. Left ventricular systolic function is mild to moderately reduced. The ejection fraction is estimated to be 45-50%. There is significant hypokinesis of the mid and distal septum and apex in addition to the distal inferior wall. This may be related to RV apical pacing however it may also represent ischemia in the distribution of the LAD. This is new c/w the prior exam from 12/12/2015. There is a RA pacemaker lead identified however the RV lead is not well seen. No obvious vegetation seen. There is mild to moderate mitral regurgitation. There is mild to moderate aortic regurgitation. The AI jet is poorly visualized and it is difficult to alum operator the cause and severety of the Aortic insufficency based on the current exam. The AI and MR were not seen on the prior exam. No other echocardiographic abnormalities seen. A AJIT exam would likely be beneficial in better evaluating the etiology and severity of the AI and MR as well as excluding a vegetation on the pacemaker leads if clinically appropriate. Assessment & Plan 36-year-old female status post pacemaker for 3 'block from ablation for SVT presenting from [facility] 05/20 MSSA perinephric abscess/bacteremia that has caused the pacemaker to be infected. # Pacemaker infection possibly causing MSSA bacteremia,acute,poa - No evidence of Endocarditis given AJIT results. Pacemaker infection seeding hematogenously to perinephric area is the most likely explanation given the fact : No urinary complaints , urine analysis and urine culture negative all along. - NEW ONSET aortic insufficiency and mitral regurgitation with some systolic dysfunction seen on echo on 05/06. - appreciate Cardiology and ID consults. will f/u w/ recs - post Dual-chamber pacemaker system extraction from the left side with capsulectomy and drain placement and Temporary permanent pacemaker placement through the right internal jugular vein on 05/27 - post new pacemaker placement on 05/31/16 - Abx as noted below # Acute bacteremia with MSSA/staph epidermidis. present on admission - On cefazolin/vancomycin initially. stopped Vanco and started Dapto per ID recs - will order for PICC line placement today # Acute Perinephric abscess, present on admission. - On May 17 at [facility], Radiology placed a percutaneous drain into the right perinephric fluid collection, which yielded purulent material which turned out to be clindamycin resistant MSSA. - drain removed on 05/28 per ID recs # Type I diabetes with recent DKA - Continue Lantus (am lantus was lowered to 20 earlier due to blood glucose of 90) - Sliding-scale # Recent SVT s/p ablation - telemetry # Recent pacemaker insertion for complete heart block - s/p pacer removal and replacement as noted above # Hypothyroidism - Continue Synthroid 250 MCG daily - TSH WNL # PTSD/anxiety - Continue home meds Dispo: likely home with home infusion tomorrow pending ID clearance GI Prophylaxis: Proton Pump Inhibitor VTE Prophylaxis: Sub-Q Enoxaparin VTE Mechanical Devices: Intermittant Pneumatic CD Resuscitation Status: CPR: Attempt Resuscitation Danyel Rojas Jun 02, 2016 14:55
[2016-06-02] MEDS ORDERED: Sodium Chloride LOK Flush 10 mL Syringe IVFLUSH PRN ×2 (15:10)
[2016-06-03] VITALS (7 sets, daily range): BP systolic 130–160; BP diastolic 82–105; PULSE 93–109; RESP 16–18; O2SAT 90–95
[2016-06-03] MEDS: Sodium Chloride LOK Flush 10 mL Syringe IVFLUSH SCH ×6 (00:30→16:30)
[2016-06-03] MEDS: HYDROmorphone 1 mg/mL Inj IVPUSH PRN ×3 (01:19→07:43)
[2016-06-03] MEDS: CeFAZolin Inj 2 GM in IV Premix 1 EACH IV SCH ×3 (01:48→18:10)
[2016-06-03 06:23] LABS: Mean Corpuscular Hemoglobin 26.2 pg (27.0-35.0); Mean Corpuscular Volume 88.3 fL (81-100)
[2016-06-03] MEDS: Insulin LISPRO 300 Unit/3 mL Inj SUBQ SCH ×4 (07:28→22:00)
[2016-06-03] MEDS: Pantoprazole 40 mg ER24 Tablet PO SCH ×2 (07:42→21:47)
[2016-06-03] MEDS: Venlafaxine XR 75 mg ER24 Capsule PO SCH (07:43)
[2016-06-03] MEDS: MeTOProlol XL 50 mg ER24 Tablet PO SCH ×2 (07:43→21:47)
[2016-06-03] MEDS: 0.9% Sodium Chloride 1,000 ML IV SCH ×2 (08:14→16:55)
[2016-06-03] MEDS ORDERED: HYDROmorphone 1 mg/mL Inj IVPUSH PRN (08:25)
[2016-06-03] MEDS: DAPTOmycin Inj 700 MG in 0.9% Sodium Chloride 50 ML IV SCH (09:36)
[2016-06-03] MEDS: Insulin GLARgine 100 Unit/mL Syringe SUBQ SCH (09:37)
[2016-06-03] MEDS: Ondansetron 2 mg/mL 2 mL Inj IVPUSH PRN (11:27)
[2016-06-03 12:11] LABS: Mean Corpuscular Hemoglobin 25.7 pg (27.0-35.0); Mean Corpuscular Volume 89.7 fL (81-100)
--- NOTE | 2016-06-03 15:43 | DRSVH ---
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 FINDINGS: PICC was placed by the intravenous therapy team from the right side. Fluoroscopic spot fi lm demonstrates tip of PICC overlies the distal SVC/right atrial junction. IMPRESSION: Tip of PICC overlies the distal SVC/right atrial junction. Dictated by: Teresa Smith M.D. on 06/03/2016 at 15:41 Approved by: Teresa Smith M.D. on 06/03/2016 at 15:42
--- NOTE | 2016-06-03 16:05 | PROG NOTE ---
[address] [address] PROGRESS NOTE PATIENT: KAYLEE TURNER : 1980 MR#: [id number] ADMIT: 05/20/2016 JOB ID: [id number] DATE: 06/03/2016 REASON FOR FOLLOWUP: Bacteremic MSSA perinephric abscess with probable pacer infection. Status post pacer explantation and reimplantation of new spacer. INTERVAL HISTORY: Over the weekend, the patient has been doing fairly well. She denies fevers, chills, sweats, sore throat, or significant cough. She does have some shortness of breath with exertion which she attributes to deconditioning. No nausea, vomiting, diarrhea. There has been great difficulty in placing a PICC line for the remainder of her IV antibiotic therapy. Her old pacer site on the left is gradually becoming less tender, though the new implant site on the right is quite tender. PHYSICAL EXAMINATION: Reveals an afebrile woman, no acute distress. Temp 36.8, pulse 93, respiratory rate 17, blood pressure 149/89. She is in no acute distress. Patient is awake, pleasant and smiling this morning. Oral cavity without thrush. Still has a peripheral IV in the left forearm which we are using for all of her antibiotics as multiple attempts to place a PICC line in the left upper arm have failed. Both incisions were carefully inspected, that is the left old pacer incision and the right new pacer incision in the upper chest. Both appear free of infection. The lungs are clear. Cardiac tones without new murmur. Abdomen soft and nontender. LABORATORIES: Include a white count 6500 today, platelet count 320,000, creatinine is 0.9 which has jumped a bit over the past 24 hours for unclear reasons. LFTs basically normal. Urinalysis 6-10 white cells. Comprehensive review of micro: Back May 17 and , while at [facility], the patient's blood cultures grew MSSA. After transfer here and starting on May 20, all blood cultures were negative except for two bottles from one set that grew coag-negative Staph on May 23. All of our followup blood cultures after that date are negative. Many cultures were done at the that time of the explantation of the left chest pacer on May 27. These cultures are negative with the exception of the culture from the pacer pocket itself, which did not show any organisms on the Gram stain but grew two species of coag-negative staph in very low amounts. One of these is a coag-negative staph. Both of these are susceptible to cefazolin as well as daptomycin, and it is worth noting that both of these isolates that grew in Thio broth only from the pacer pocket site from when it was removed on the May 27 are different than the two coag-negative Staph positive bottles on the May 23. IMPRESSION: I think that all the coag-negative Staphylococcus cultures, from May 23 in blood and from May 27 from the pacer pocket, are contaminants. The pacer pocket is two separate organisms. They both grew in miniscule quantities, probably one organism, from Thio broth, and all the other explantation cultures were negative. I have discussed this case extensively with Dr. Del Valle and reviewed the literature, and this is indeed an extremely complex case. At this point, I think the safest course of action is to provide very prolonged course of antibiotics, given the patient had a perinephric abscess which is slowly resolving, as well as a probable infection of the pacer, which has now been removed and replaced. RECOMMENDATIONS: 1. I have discussed this case in person with the PICC line team today and we are going to try to get a PICC line in. If we cannot, a midline will probably suffice. 2. The patient should receive cefazolin, May 20 through June 17. That will complete four weeks of high-dose cefazolin for the MSSA that was found in her blood in mid May, as well as in her perinephric abscess at [facility]. 3. Will continue with daptomycin through June 24. This will complete a full four weeks of aggressive both Staph epi and Staph aureus treatment, following the explantation of the pacer. 4. I will be seeing the patient in my clinic on June 12. 5. Weekly labs have been ordered to be done by the home infusion company. 6. All the orders have been written for the home infusion company. 7. This case has been extensively discussed with Cardiology, as well as the patient and her father to make these arrangements. 8. The patient can be discharged at any time from an Infectious Disease point of view, but in the meantime, will continue here in the hospital to make progress and our antibiotics with cefazolin 2 g IV q.8 h. and daptomycin 700 once a day. Thank you very much. Total time spent on this case over the past day or so has been approximately 45 minutes.
--- NOTE | 2016-06-03 19:53 | PCM.PNMED ---
Subjective Date of Service Jun 03, 2016 Subjective denies any new issues/complaints . Pain is well controlled on dilaudid. Denies overnight fevers, chills, nausea, vomiting, diarrhea. Says her insulin was held last night and in the AM as BG < 80. PICC line nurse was unable to place a picc line yesterday. Will try again today. Denies Urinary symptoms, abdominal pain. Exam Vital Signs Vital Sign - Last Date Time Temp Pulse Resp B/P Pulse Ox O2 Delivery O2 Flow Rate FiO2 06/03/16 01:29 37.1 96 16 130/82 92 Room Air 06/02/16 06:26 2.00 Intake and Output 06/02/16 06/02/16 06/03/16 Cumulative From/Thru 15:00 23:00 07:00 05/20/16 15:41 - 06/03/16 00:30 Intake Total 1610 ml 29556 ml Output Total 1200 ml 24958 ml Balance 410 ml 5534 ml Intake Oral 1370 ml 17720 ml IV Total 240 ml 47307 ml Output Urine Total 1200 ml 74735 ml Drainage Total 70 ml # Voids 4 # Bowel Movements 0 Exam Eyes: [place] conjunctivae. No ptosis, PERRL Neck: No masses, trachea midline, no thyromegaly Lungs: CTA with normal respiratory effort CV: RRR, no murmurs/rubs/gallops GI: Soft, non-tender with no hepatosplenomegaly, normal bowel sounds Skin: Warm and dry. incision sites over L and R clean and dry. R IJ site has healing incisions as well. L upper arm has faint hematomas. Psych: A&O X3, with appropriate affect IVs and Medications Medications Reviewed: Medications were reviewed in detail Lab and Diagnostics Intake and Output 06/02/16 06/02/16 06/03/16 Cumulative From/Thru 15:00 23:00 07:00 05/20/16 15:41 - 06/03/16 06:36 Intake Total 1610 ml 847 ml 91889 ml Output Total 1200 ml 2000 ml 57329 ml Balance 410 ml -1153 ml 4381 ml Intake Oral 1370 ml 620 ml 78418 ml IV Total 240 ml 227 ml 31609 ml Output Urine Total 1200 ml 2000 ml 13521 ml Drainage Total 70 ml # Voids 4 # Bowel Movements 0 0 Result Diagram: 05/31/16 0702 05/31/16701 Cardiac Echo Impressions 05/06/16 Interpretation Summary The left ventricle is mildly dilated. Left ventricular systolic function is mild to moderately reduced. The ejection fraction is estimated to be 45-50%. There is significant hypokinesis of the mid and distal septum and apex in addition to the distal inferior wall. This may be related to RV apical pacing however it may also represent ischemia in the distribution of the LAD. This is new c/w the prior exam from 12/12/2015. There is a RA pacemaker lead identified however the RV lead is not well seen. No obvious vegetation seen. There is mild to moderate mitral regurgitation. There is mild to moderate aortic regurgitation. The AI jet is poorly visualized and it is difficult to all source intelligence the cause and severety of the Aortic insufficency based on the current exam. The AI and MR were not seen on the prior exam. No other echocardiographic abnormalities seen. A AJIT exam would likely be beneficial in better evaluating the etiology and severity of the AI and MR as well as excluding a vegetation on the pacemaker leads if clinically appropriate. Assessment & Plan 36-year-old female status post pacemaker for 3 'block from ablation for SVT presenting from [facility] 05/20 MSSA perinephric abscess/bacteremia that has caused the pacemaker to be infected. Now she has a new pacemaker (which was placed on 05/31 on L side. She has a low threshold for pain. She is awaiting PICC line placement for continued antibiotics. Infectious diseases have the recommendations for her for follow-up. # MSSA bacteremia from perinephric abscess probably causing pacemaker site infection,acute,poa - No evidence of Endocarditis given AJIT results. Pacemaker infection seeding hematogenously to perinephric area is the most likely explanation given the fact : No urinary complaints , urine analysis and urine culture negative all along. - NEW ONSET aortic insufficiency and mitral regurgitation with some systolic dysfunction seen on echo on 05/06. - appreciate Cardiology and ID consults. will f/u w/ recs: They have a plan for her discharge including IV antibiotics, follow-up labs and clinic visit. Midline is okay if PICC line cannot be placed. We appreciate their recommendations - post Dual-chamber pacemaker system extraction from the left side with capsulectomy and drain placement and Temporary permanent pacemaker placement through the right internal jugular vein on 05/27 - post new pacemaker placement on Right side on 05/31/16. - Abx as noted below # Acute bacteremia with MSSA/staph epidermidis. present on admission - On cefazolin/vancomycin initially. Replaced Vanc with Dapto per ID recs - PICC line was attempted on 06/02/16, failed. -- PICC line nursing will reattempt line on 06/03/2016 # Acute Perinephric abscess, present on admission. - On May 17 at [facility], Radiology placed a percutaneous drain into the right perinephric fluid collection, which yielded purulent material which turned out to be clindamycin resistant MSSA. - drain removed on 05/28/16 per ID recs # Type I diabetes with recent DKA - Continue Lantus (am lantus was lowered to 20 earlier due to blood glucose of 90). Last night Lantus was held, a.m. Lantus 20 units was given. She has taken 22 units total today so far. We will adjust her night Lantus to be 20 units down from 50 units only to be given if blood glucoses are greater than 100. - Sliding-scale changed to medium scale # Recent SVT s/p ablation - telemetry # Recent pacemaker insertion for complete heart block - s/p pacer removal and replacement as noted above # Hypothyroidism - Continue Synthroid 250 MCG daily - TSH WNL # PTSD/anxiety - Continue home meds Dispo: likely home with home infusion 1-2 days pending ID clearance Pain Evaluation: Adequate Pain Control GI Prophylaxis: Proton Pump Inhibitor VTE Prophylaxis: Sub-Q Enoxaparin VTE Mechanical Devices: Intermittant Pneumatic CD Resuscitation Status: CPR: Attempt Resuscitation Glory Cormier DO Jun 03, 2016 05:34
[2016-06-03] MEDS ORDERED: Glucose 40% Oral Gel 15 Gm Tube PO PRN (20:05)
[2016-06-03] MEDS ORDERED: Insulin GLARgine 100 Unit/mL Syringe SUBQ SCH (21:00)
[2016-06-04] MEDS: Sodium Chloride LOK Flush 10 mL Syringe IVFLUSH SCH ×4 (00:30→08:07)
[2016-06-04 01:50] VITALS: BP 148/87; PULSE 103; RESP 18; O2SAT 94
[2016-06-04] MEDS: CeFAZolin Inj 2 GM in IV Premix 1 EACH IV SCH ×2 (02:58→10:32)
[2016-06-04] MEDS: 0.9% Sodium Chloride 1,000 ML IV SCH ×2 (04:14→11:20)
[2016-06-04 05:33] VITALS: BP 153/94; PULSE 108; RESP 18; O2SAT 93
[2016-06-04 06:10] LABS: Mean Corpuscular Hemoglobin 26.3 pg (27.0-35.0); Mean Corpuscular Volume 88.4 fL (81-100)
[2016-06-04] MEDS: Insulin LISPRO 300 Unit/3 mL Inj SUBQ SCH ×2 (08:00→12:00)
[2016-06-04] MEDS: Venlafaxine XR 75 mg ER24 Capsule PO SCH (08:06)
[2016-06-04] MEDS: Pantoprazole 40 mg ER24 Tablet PO SCH (08:06)
[2016-06-04] MEDS: MeTOProlol XL 50 mg ER24 Tablet PO SCH (08:06)
[2016-06-04] MEDS: Ondansetron 2 mg/mL 2 mL Inj IVPUSH PRN (08:19)
[2016-06-04] MEDS ORDERED: Insulin GLARgine 100 Unit/mL Syringe SUBQ SCH (08:30)
[2016-06-04] MEDS: DAPTOmycin Inj 700 MG in 0.9% Sodium Chloride 50 ML IV SCH (09:04)
[2016-06-04 09:24] VITALS: BP 154/92; PULSE 102; RESP 20; O2SAT 94
[2016-06-04 10:34] VITALS: PULSE 108
--- NOTE | 2016-06-04 11:14 | PROG NOTE ---
[address] [address] PROGRESS NOTE PATIENT: KAYLEE TURNER : 1980 MR#: [id number] ADMIT: 05/20/2016 JOB ID: [id number] DATE: 06/04/2016 INFECTIOUS DISEASE FOLLOW UP NOTE: REASON FOR FOLLOWUP: MSSA bacteremia with associated perinephric abscess followed by coag-negative Staph bacteremia in a patient with a recently implanted pacer. INTERVAL HISTORY: The patient reports she is doing fine this morning. No fevers. No chills. No sweats. She has no cough, shortness of breath or chest pain. She is happy that we were finally able to get a PICC line in her left upper extremity. She has minimal pain at the site of her left chest pacer explantation site and her right chest pacer implantation site but both of these also seem to be improving. No GI symptoms. PHYSICAL EXAMINATION: Reveals a comfortable woman in no acute distress. Temperature 36.6, pulse 102, respiratory rate 20, blood pressure 154/92, saturating well on room air. She is in no distress and is smiling today. Oral cavity negative. Lungs quite clear. Cardiac tones without new murmur. Both pacer implant and explant sites were inspected and both are well approximated and without evidence of inflammation or erythema. Abdomen negative. LABORATORIES: Include a white count of 7000 today. Creatinine 0.8. LFTs normal. Albumin 2.4. Urinalysis 6-10 white cells. Micro studies include negative blood cultures from the . Recall that the explantation occurred on the . Out of those cultures the only one that was positive was a culture from the pacer pocket which grew very small quantities in Thio broth only of two different coag-negative Staph. Both of these coag-negative Staph were sensitive to cefazolin. On the some follow up blood cultures grew coag-negative staph, which was cefazolin resistant and this was seen in two bottles from one set that was drawn in followup to the MSSA blood cultures that were obtained back at [facility] earlier in May. IMPRESSION: This patient is doing well and is being prepared for discharge today. We are continuing to aggressively treat the MSSA that was found of May 17 through at [facility] in the blood as well as in the perinephric abscess. We are also covering all three of the apparently distinct isolates of coag-negative staph that were found subsequent to that in a single set of blood cultures as well as in the pacer explantation site. I strongly suspect that all these coag-negative Staph isolates represent contaminant but in view of the extreme difficulty we have had with this case and our concerns about the new pacer, we will continue to aggressively treat all isolated organisms including MSSA in all three species of coag-negative staph. RECOMMENDATIONS: 1. The patient is ready for discharge today with high-dose cefazolin through June 17 and daptomycin through June 24. 2. Follow up labs have been ordered and discussed with the infusion company. 3. The patient will see me in my clinic June 12. 4. The potential for side effects was discussed with the patient and she was advised to call me should she developed fevers, chills, tenderness at either pacer site, muscle ache, nausea, vomiting or diarrhea. Thank you very much. Infectious Disease will be signing off.
[2016-06-04 13:27] VITALS: BP 157/103; PULSE 102; RESP 18; O2SAT 99
--- NOTE | 2016-06-04 14:15 | PCM.DIMED ---
Discharge Instructions Date of Service Jun 04, 2016 Dates of Hospitalization May 20, 2016 at 15:15 Discharge Diagnosis Discharge Diagnosis MSSA bacteremia from perinephric abscess probably causing pacemaker site infection, T1 DM Medication Instructions Please note change to your home lantus. Please take 20 units at night and 15 units in the AM. Test Results [facility] Diagnostic [place] [address] Patient Name: KAYLEE TURNER MR#: [id number] Location: [facility] Ordering Phys: Irvin Fortunato Date of Service: 05/23/16 0912 PROCEDURE: US ABDOMEN INDICATIONS: ruq pain-worsening TECHNIQUE: Real-time scanning was performed of the abdominal and retroperitoneal organs, with image documentation. COMPARISON: [facility], CR, XR CHEST 1VW (PORTABLE), 05/20/2016, 17: 16. FINDINGS: Liver length: 20.27 cm CBD: 3.40 mm Spleen length: 13.34 cm Right kidney length: 12.62 cm Left kidney length: 13.08 cm Aorta(Proximal): 2.12 cm Aorta(Mid): 1.82 cm Liver: Liver is normal in size and homogeneous in echotexture. Gallbladder: Post cholecystectomy. Biliary ducts: Intrahepatic bile ducts are non-dilated. Extrahepatic bile duct caliber is normal. Normal is 6-7 mm or less in diameter, or 10 mm or less post-cholecystectomy. Pancreas: Visualized portions of the pancreas are sonographically normal. Spleen: Spleen is normal in size and homogeneous in echotexture. Kidneys: Kidneys are normal in size and echotexture. No hydronephrosis or nephrolithiasis. No solid masses. Aorta: Visualized aorta is normal in caliber at less than 3 cm. Iliacs: Proximal common iliac arteries are normal in caliber at less than 2.5 cm. IVC: Intrahepatic inferior vena cava is patent. Miscellaneous: No free abdominal fluid. Small right pleural effusion. IMPRESSION: Small right pleural effusion. Dictated by: Farhan Barrera RRA Interpreted: Lauren Garcia MD on 05/23/2016 at 14:32 Transcribed by: BUCK on 05/23/2016 at 14:33 Approved by: Lauren Garcia MD, PhD on 05/23/2016 at 16:55 [facility] Diagnostic [place] [address] Patient Name: KAYLEE TURNER MR#: [id number] Location: [facility] [place] Ordering Phys: Sohail Gregory DO Date of Service: 05/28/16 1311 PROCEDURE: CT ABDOMEN WITH CONTRAST ([id number]) INDICATIONS: Right perinephric abscess s/p drain at [place]. ?Remove TECHNIQUE: After the administration of intravenous contrast, 5 mm thick sections acquired from the diaphragm to the iliac crests. 5 mm coronal and sagittal reformats were performed. For radiation dose reduction, the following was used: automated exposure control, adjustment of mA and/or kV according to patient size. COMPARISON: [facility], CR, XR CHEST 2VW, 05/28/2016, 6:40. [facility], CT, ABDOMEN WITH CONTRAST, 05/16/2016, 10:02. [facility], CT, ABDOMEN WITHOUT CONTRAST, 05/20/2016, 7:39. FINDINGS: Image quality: Excellent. Lung bases: There are bilateral pleural effusions and bibasilar atelectasis. Pleural effusions have slightly increased compared to the last CT on 05/20/2016. Heart size is normal. Solid organs: There is an abscess drain in the right upper quadrant just lateral to the inferior pole of the right kidney. There is a small residual collection medial to the tip of the catheter measuring 1.1 x 3.0 cm. There is mild perinephric stranding around the right kidney. Kidneys demonstrate normal size and enhancement, without hydronephrosis. There is diffuse hepatic fatty infiltration. Liver and spleen are normal in size and enhancement. Gallbladder is surgically absent. Biliary system is non dilated. Pancreas enhances normally. No adrenal nodules. Peritoneum and bowel: Bowel loops demonstrate normal wall thickness and caliber. No free fluid or air. Nodes and vessels: No retroperitoneal or mesenteric adenopathy by size criteria. Aorta and inferior vena cava are normal in size. Miscellaneous: No ventral hernias. There is soft tissue edema in flanks bilaterally, right greater than left. IMPRESSION: 1. This is an abscess drain just lateral to the inferior pole of the right kidney. There is a tiny residual abscess cavity medial to the drainage catheter measuring 1.1 x 3.0 cm. There is mild perinephric stranding around the right kidney. 2. Hepatic steatosis. 3. Bilateral effusions, increased. 4. Soft tissue edema in flanks bilaterally, right greater than left. Dictated by: Aden Amador M.D. on 05/28/2016 at 16:13 Approved by: Aden Amador M.D. on 05/28/2016 at 16:21 Diet Heart Healthy Activity No restrictions Call your provider Fever or Chills, Shortness of breath, Bleeding, Chest pain, Vomitting, Excessive diarrhea, Weakness (unilateral), Other Patient Instructions 1. The patient is ready for discharge today with high-dose cefazolin through June 17 and daptomycin through June 24. 2. Follow up labs have been ordered and discussed with the infusion company. 3. The patient will see Dr. Ambrose clinic June 12. 4. The potential for side effects was discussed with the patient and she was advised to call me should she developed fevers, chills, tenderness at either pacer site, muscle ache, nausea, vomiting or diarrhea. Follow-up plan Please follow up with PCP in one week for Blood glucose check and HTN check Glory Cormier DO Jun 04, 2016 14:15
[2016-06-04] MEDS ORDERED: INSU100V7 SUBQ ×2 (14:32)
[2016-06-04] MEDS ORDERED: TRAM-14 PO (14:35)
[2016-06-05] MEDS ORDERED: INSU100V7 SUBQ ×2 (21:55→22:20)
[2016-06-05] MEDS ORDERED: DAPT500V2 IV (22:18)
[2016-06-05] MEDS ORDERED: CEFA1VIA3 IV (22:18)
--- NOTE | 2016-06-10 15:28 | PCM.DC.MED ---
Discharge Summary Date of Service Jun 10, 2016 Dates of Hospitalization Date of Hospital Admission May 20, 2016 at 15:15 Date of Discharge: Jun 04, 2016 Providers: Admitting Physician: Artemio Narvaez MD Primary Care Physician: Arielle Aguilar DO Attending Physician: Artemio Narvaez MD Diagnosis at Time of Discharge Diagnosis at Time of Discharge MSSA bacteremia from perinephric abscess probably causing pacemaker site infection, T1 DM Consultations Cardiology, ID Procedures XRay, CTs & MRIs [facility] Diagnostic Imaging Department [place], [place] [id number] Patient Name: KAYLEE TURNER MR#: [id number] Location: [facility] [place] Ordering Phys: Danyel Rojas MD Date of Service: 06/03/16 0800 PROCEDURE: X-RAY PICC LINE PLACEMENT BY NURSE ([id number]) 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 FINDINGS: PICC was placed by the intravenous therapy team from the right side. Fluoroscopic spot film demonstrates tip of PICC overlies the distal SVC/right atrial junction. IMPRESSION: Tip of PICC overlies the distal SVC/right atrial junction. Dictated by: Teresa Smith M.D. on 06/03/2016 at 15:41 Approved by: Teresa Smith M.D. on 06/03/2016 at 15:42 [facility] Diagnostic Imaging Department [place], [place] [id number] Patient Name: KAYLEE TURNER MR#: [id number] Location: [facility] [place] Ordering Phys: Sohail Gregory DO Date of Service: 05/28/16 1311 PROCEDURE: CT ABDOMEN WITH CONTRAST ([id number]) INDICATIONS: Right perinephric abscess s/p drain at [place]. ?Remove TECHNIQUE: After the administration of intravenous contrast, 5 mm thick sections acquired from the diaphragm to the iliac crests. 5 mm coronal and sagittal reformats were performed. For radiation dose reduction, the following was used: automated exposure control, adjustment of mA and/or kV according to patient size. COMPARISON: [facility], CR, XR CHEST 2VW, 05/28/2016, 6:40. [facility], CT, ABDOMEN WITH CONTRAST, 05/16/2016, 10:02. [facility], CT, ABDOMEN WITHOUT CONTRAST, 05/20/2016, 7:39. FINDINGS: Image quality: Excellent. Lung bases: There are bilateral pleural effusions and bibasilar atelectasis. Pleural effusions have slightly increased compared to the last CT on 05/20/2016. Heart size is normal. Solid organs: There is an abscess drain in the right upper quadrant just lateral to the inferior pole of the right kidney. There is a small residual collection medial to the tip of the catheter measuring 1.1 x 3.0 cm. There is mild perinephric stranding around the right kidney. Kidneys demonstrate normal size and enhancement, without hydronephrosis. There is diffuse hepatic fatty infiltration. Liver and spleen are normal in size and enhancement. Gallbladder is surgically absent. Biliary system is non dilated. Pancreas enhances normally. No adrenal nodules. Peritoneum and bowel: Bowel loops demonstrate normal wall thickness and caliber. No free fluid or air. Nodes and vessels: No retroperitoneal or mesenteric adenopathy by size criteria. Aorta and inferior vena cava are normal in size. Miscellaneous: No ventral hernias. There is soft tissue edema in flanks bilaterally, right greater than left. IMPRESSION: 1. This is an abscess drain just lateral to the inferior pole of the right kidney. There is a tiny residual abscess cavity medial to the drainage catheter measuring 1.1 x 3.0 cm. There is mild perinephric stranding around the right kidney. 2. Hepatic steatosis. 3. Bilateral effusions, increased. 4. Soft tissue edema in flanks bilaterally, right greater than left. Dictated by: Aden Amador M.D. on 05/28/2016 at 16:13 Approved by: Aden Amador M.D. on 05/28/2016 at 16:21 [facility] Diagnostic [place] [address] Patient Name: KAYLEE TURNER MR#: [id number] Location: [facility] [place] Ordering Phys: Sohail Gregory DO Date of Service: 05/24/16 1316 PROCEDURE: X-RAY FISTULAGRAM/SINOGRAM INDICATIONS: R perinephric abscess w/ drain COMPARISON: [facility], CT, ABDOMEN WITHOUT CONTRAST, 05/20/2016, 7:39. [facility], CT, DRAIN RETRO OR PERITONEAL CT, 05/17/2016, 11:33. FINDINGS: Bias Cutter view demonstrates cholecystectomy clips and a right flank percutaneous drainage catheter. With contrast administration there is opacification of a small residual sinus cavity adjacent to the coiled tube tip measuring roughly 3.2 x 1.7 cm. Delayed images demonstrates no definite opacification of adjacent neighboring anatomy. The attending physician was personally present in the room during the examination. IMPRESSION: Small sinus cavity adjacent to the right flank percutaneous drain tip. Drain was left in position. Dictated by: Farhan Barrera RRA Interpreted: Lauren Garcia MD on 05/24/2016 at 15:21 Transcribed by: BUCK on 05/24/2016 at 15:23 Approved by: Lauren Garcia MD, PhD on 05/24/2016 at 17:10 [facility] Diagnostic [place] [address] Patient Name: KAYLEE TURNER MR#: [id number] Location: [facility] Ordering Phys: Fortunato Bryan DO Date of Service: 05/23/16 0912 PROCEDURE: US ABDOMEN INDICATIONS: ruq pain-worsening TECHNIQUE: Real-time scanning was performed of the abdominal and retroperitoneal organs, with image documentation. COMPARISON: [facility], CR, XR CHEST 1VW (PORTABLE), 05/20/2016, 17: 16. FINDINGS: Liver length: 20.27 cm CBD: 3.40 mm Spleen length: 13.34 cm Right kidney length: 12.62 cm Left kidney length: 13.08 cm Aorta(Proximal): 2.12 cm Aorta(Mid): 1.82 cm Liver: Liver is normal in size and homogeneous in echotexture. Gallbladder: Post cholecystectomy. Biliary ducts: Intrahepatic bile ducts are non-dilated. Extrahepatic bile duct caliber is normal. Normal is 6-7 mm or less in diameter, or 10 mm or less post-cholecystectomy. Pancreas: Visualized portions of the pancreas are sonographically normal. Spleen: Spleen is normal in size and homogeneous in echotexture. Kidneys: Kidneys are normal in size and echotexture. No hydronephrosis or nephrolithiasis. No solid masses. Aorta: Visualized aorta is normal in caliber at less than 3 cm. Iliacs: Proximal common iliac arteries are normal in caliber at less than 2.5 cm. IVC: Intrahepatic inferior vena cava is patent. Miscellaneous: No free abdominal fluid. Small right pleural effusion. IMPRESSION: Small right pleural effusion. Dictated by: Farhan MISHRA Interpreted: Lauren Garcia MD on 05/23/2016 at 14:32 Transcribed by: BUCK on 05/23/2016 at 14:33 Approved by: Lauren Garcia MD, PhD on 05/23/2016 at 16:55 [facility] Diagnostic Imaging Department [facility] [place] [address] Patient Name: KAYLEE TURNER MR#: [id number] Location: [facility] Ordering Phys: Irvin Fortunato Date of Service: 05/23/16 0912 PROCEDURE: US ABDOMEN INDICATIONS: ruq pain-worsening TECHNIQUE: Real-time scanning was performed of the abdominal and retroperitoneal organs, with image documentation. COMPARISON: [facility], CR, XR CHEST 1VW (PORTABLE), 05/20/2016, 17: 16. FINDINGS: Liver length: 20.27 cm CBD: 3.40 mm Spleen length: 13.34 cm Right kidney length: 12.62 cm Left kidney length: 13.08 cm Aorta(Proximal): 2.12 cm Aorta(Mid): 1.82 cm Liver: Liver is normal in size and homogeneous in echotexture. Gallbladder: Post cholecystectomy. Biliary ducts: Intrahepatic bile ducts are non-dilated. Extrahepatic bile duct caliber is normal. Normal is 6-7 mm or less in diameter, or 10 mm or less post-cholecystectomy. Pancreas: Visualized portions of the pancreas are sonographically normal. Spleen: Spleen is normal in size and homogeneous in echotexture. Kidneys: Kidneys are normal in size and echotexture. No hydronephrosis or nephrolithiasis. No solid masses. Aorta: Visualized aorta is normal in caliber at less than 3 cm. Iliacs: Proximal common iliac arteries are normal in caliber at less than 2.5 cm. IVC: Intrahepatic inferior vena cava is patent. Miscellaneous: No free abdominal fluid. Small right pleural effusion. IMPRESSION: Small right pleural effusion. Dictated by: Farhan MISHRA Interpreted: Lauren Garcia MD on 05/23/2016 at 14:32 Transcribed by: BUCK on 05/23/2016 at 14:33 Approved by: Lauren Garcia MD, PhD on 05/23/2016 at 16:55 [facility] Diagnostic [place] [address] Patient Name: KAYLEE TURNER MR#: [id number] Location: [facility] Ordering Phys: IrvinFortunato Date of Service: 05/23/16 0912 PROCEDURE: US ABDOMEN INDICATIONS: ruq pain-worsening TECHNIQUE: Real-time scanning was performed of the abdominal and retroperitoneal organs, with image documentation. COMPARISON: [facility], CR, XR CHEST 1VW (PORTABLE), 05/20/2016, 17: 16. FINDINGS: Liver length: 20.27 cm CBD: 3.40 mm Spleen length: 13.34 cm Right kidney length: 12.62 cm Left kidney length: 13.08 cm Aorta(Proximal): 2.12 cm Aorta(Mid): 1.82 cm Liver: Liver is normal in size and homogeneous in echotexture. Gallbladder: Post cholecystectomy. Biliary ducts: Intrahepatic bile ducts are non-dilated. Extrahepatic bile duct caliber is normal. Normal is 6-7 mm or less in diameter, or 10 mm or less post-cholecystectomy. Pancreas: Visualized portions of the pancreas are sonographically normal. Spleen: Spleen is normal in size and homogeneous in echotexture. Kidneys: Kidneys are normal in size and echotexture. No hydronephrosis or nephrolithiasis. No solid masses. Aorta: Visualized aorta is normal in caliber at less than 3 cm. Iliacs: Proximal common iliac arteries are normal in caliber at less than 2.5 cm. IVC: Intrahepatic inferior vena cava is patent. Miscellaneous: No free abdominal fluid. Small right pleural effusion. IMPRESSION: Small right pleural effusion. Dictated by: Farhan Barrera RRA Interpreted: Lauren Garcia MD on 05/23/2016 at 14:32 Transcribed by: BUCK on 05/23/2016 at 14:33 Approved by: Lauren Garcia MD, PhD on 05/23/2016 at 16:55 [facility] Diagnostic [place] [address] Patient Name: KAYLEE TURNER MR#: [id number] Location: [facility] Ordering Phys: Irvin Fortunato Date of Service: 05/23/16 0912 PROCEDURE: US ABDOMEN INDICATIONS: ruq pain-worsening TECHNIQUE: Real-time scanning was performed of the abdominal and retroperitoneal organs, with image documentation. COMPARISON: [facility], CR, XR CHEST 1VW (PORTABLE), 05/20/2016, 17: 16. FINDINGS: Liver length: 20.27 cm CBD: 3.40 mm Spleen length: 13.34 cm Right kidney length: 12.62 cm Left kidney length: 13.08 cm Aorta(Proximal): 2.12 cm Aorta(Mid): 1.82 cm Liver: Liver is normal in size and homogeneous in echotexture. Gallbladder: Post cholecystectomy. Biliary ducts: Intrahepatic bile ducts are non-dilated. Extrahepatic bile duct caliber is normal. Normal is 6-7 mm or less in diameter, or 10 mm or less post-cholecystectomy. Pancreas: Visualized portions of the pancreas are sonographically normal. Spleen: Spleen is normal in size and homogeneous in echotexture. Kidneys: Kidneys are normal in size and echotexture. No hydronephrosis or nephrolithiasis. No solid masses. Aorta: Visualized aorta is normal in caliber at less than 3 cm. Iliacs: Proximal common iliac arteries are normal in caliber at less than 2.5 cm. IVC: Intrahepatic inferior vena cava is patent. Miscellaneous: No free abdominal fluid. Small right pleural effusion. IMPRESSION: Small right pleural effusion. Dictated by: Farhan Barrera [facility] Interpreted: Lauren Garcia MD on 05/23/2016 at 14:32 Transcribed by: BUCK on 05/23/2016 at 14:33 Approved by: Lauren Garcia MD, PhD on 05/23/2016 at 16:55 [facility] Diagnostic [place] [address] Patient Name: KAYLEE TURNER MR#: [id number] Location: [facility] Ordering Phys: Fortunato Bryan DO Date of Service: 05/23/16 0912 PROCEDURE: US ABDOMEN INDICATIONS: ruq pain-worsening TECHNIQUE: Real-time scanning was performed of the abdominal and retroperitoneal organs, with image documentation. COMPARISON: [facility], CR, XR CHEST 1VW (PORTABLE), 05/20/2016, 17: 16. FINDINGS: Liver length: 20.27 cm CBD: 3.40 mm Spleen length: 13.34 cm Right kidney length: 12.62 cm Left kidney length: 13.08 cm Aorta(Proximal): 2.12 cm Aorta(Mid): 1.82 cm Liver: Liver is normal in size and homogeneous in echotexture. Gallbladder: Post cholecystectomy. Biliary ducts: Intrahepatic bile ducts are non-dilated. Extrahepatic bile duct caliber is normal. Normal is 6-7 mm or less in diameter, or 10 mm or less post-cholecystectomy. Pancreas: Visualized portions of the pancreas are sonographically normal. Spleen: Spleen is normal in size and homogeneous in echotexture. Kidneys: Kidneys are normal in size and echotexture. No hydronephrosis or nephrolithiasis. No solid masses. Aorta: Visualized aorta is normal in caliber at less than 3 cm. Iliacs: Proximal common iliac arteries are normal in caliber at less than 2.5 cm. IVC: Intrahepatic inferior vena cava is patent. Miscellaneous: No free abdominal fluid. Small right pleural effusion. IMPRESSION: Small right pleural effusion. Dictated by: Farhan Barrera RRA Interpreted: Lauren Garcia MD on 05/23/2016 at 14:32 Transcribed by: BUCK on 05/23/2016 at 14:33 Approved by: Lauren Garcia MD, PhD on 05/23/2016 at 16:55 [facility] Diagnostic [place] [address] Patient Name: KAYLEE TURNER MR#: [id number] Location: [facility] Ordering Phys: Irvin Fortunato Date of Service: 05/23/16 0912 PROCEDURE: US ABDOMEN INDICATIONS: ruq pain-worsening TECHNIQUE: Real-time scanning was performed of the abdominal and retroperitoneal organs, with image documentation. COMPARISON: [facility], CR, XR CHEST 1VW (PORTABLE), 05/20/2016, 17: 16. FINDINGS: Liver length: 20.27 cm CBD: 3.40 mm Spleen length: 13.34 cm Right kidney length: 12.62 cm Left kidney length: 13.08 cm Aorta(Proximal): 2.12 cm Aorta(Mid): 1.82 cm Liver: Liver is normal in size and homogeneous in echotexture. Gallbladder: Post cholecystectomy. Biliary ducts: Intrahepatic bile ducts are non-dilated. Extrahepatic bile duct caliber is normal. Normal is 6-7 mm or less in diameter, or 10 mm or less post-cholecystectomy. Pancreas: Visualized portions of the pancreas are sonographically normal. Spleen: Spleen is normal in size and homogeneous in echotexture. Kidneys: Kidneys are normal in size and echotexture. No hydronephrosis or nephrolithiasis. No solid masses. Aorta: Visualized aorta is normal in caliber at less than 3 cm. Iliacs: Proximal common iliac arteries are normal in caliber at less than 2.5 cm. IVC: Intrahepatic inferior vena cava is patent. Miscellaneous: No free abdominal fluid. Small right pleural effusion. IMPRESSION: Small right pleural effusion. Dictated by: Farhan Barrera RRA Interpreted: Lauren Garcia MD on 05/23/2016 at 14:32 Transcribed by: BUCK on 05/23/2016 at 14:33 Approved by: Lauren Garcia MD, PhD on 05/23/2016 at 16:55 Cardiac Echo Impression 05/06/16 Interpretation Summary The left ventricle is mildly dilated. Left ventricular systolic function is mild to moderately reduced. The ejection fraction is estimated to be 45-50%. There is significant hypokinesis of the mid and distal septum and apex in addition to the distal inferior wall. This may be related to RV apical pacing however it may also represent ischemia in the distribution of the LAD. This is new c/w the prior exam from 12/12/2015. There is a RA pacemaker lead identified however the RV lead is not well seen. No obvious vegetation seen. There is mild to moderate mitral regurgitation. There is mild to moderate aortic regurgitation. 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 The AI and MR were not seen on the prior exam. No other echocardiographic abnormalities seen. A AJIT exam would likely be beneficial in better evaluating the etiology and severity of the AI and MR as well as excluding a vegetation on the pacemaker leads if clinically appropriate. Brief History Background history 36-year-old lady with past medical history of type I diabetes, history of Graves ' disease, PTSD, anxiety, developed severely symptomatic SVT in September 2015. She underwent ablation on March [address] Del Valle at [facility], she had complete heart block and got dual chamber pacemaker on March 27 and discharged on doxycycline prophylaxis. She was doing well for few weeks after procedure. Around end of April she started to have malaise, generalized abdominal pain and vomiting and went to [facility] on April 28 and she was told to have infection of the kidney on CT scan and prescribed ciprofloxacin and discharged from emergency room. She continued to have the above symptoms on and off. She had an appointment with Dr. Del Valle on 05/06 echocardiogram which showed left ventricular dysfunction with EF 45-50%, NEW aortic insufficiency and mitral regurgitation also seen.She was seen by her PCP the next day on 05/07 and urinalysis checked and was negative. She was advised to discontinue ciprofloxacin due to continued nausea. 2 days after that she had worsening of her symptoms and was admitted to [facility] on 05/09 as DKA. She was discharged on 05/11 with no significant improvement of symptoms. She was again seen by cardiology on 05/13. She continued to have symptoms and went to [facility] on 05/15 and was admitted . Admitted for pyelonephritis and DKA with metabolic acidosis bicarbonate [address] scan revealed perinephritic abscess. She underwent right percutaneous drainage of abscess. MSSA growing both in blood and perinephritic abscess. Urinalysis and Urine culture has been negative. Due to this fact there was a concern for hematogenous spread of Infection from bacteremia from endocarditis/pacemaker lead infection to perinephritic area. 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 She has been on cefazolin 2 g every 8 hours for the past few days. She received few doses of vancomycin initially.she states she had episodes of palpitation after ablation and pacemaker. She denies having urinary symptoms . Initial CT report on 05/16 :multiloculated, 5.77.94.7 cm abscess involving's inferior pole of the right kidney and right perinephritic space, trace right pleural effusion Repeat CT today 05/20: Right pigtail drain, with a small amount of scattered residual fluid and inflammatory stranding, previous abscess is markedly decreased in size. Hospital Course 36-year-old female status post pacemaker for 3 'block from ablation for SVT presenting from [facility] 05/20 MSSA perinephric abscess/bacteremia that has caused the pacemaker to be infected. Now she has a new pacemaker (which was placed on 05/31 on L side. She has a low threshold for pain. She is awaiting PICC line placement for continued antibiotics. Infectious diseases have the recommendations for her for follow-up. # MSSA bacteremia from perinephric abscess probably causing pacemaker site infection,acute,poa - No evidence of Endocarditis given AJIT results. Pacemaker infection seeding hematogenously to perinephric area is the most likely explanation given the fact : No urinary complaints , urine analysis and urine culture negative all along. - NEW ONSET aortic insufficiency and mitral regurgitation with some systolic dysfunction seen on echo on 05/06. - appreciate Cardiology and ID consults. will f/u w/ recs: They have a plan for her discharge including IV antibiotics, follow-up labs and clinic visit. Midline is okay if PICC line cannot be placed. We appreciate their recommendations - post Dual-chamber pacemaker system extraction from the left side with capsulectomy and drain placement and Temporary permanent pacemaker placement through the right internal jugular vein on 05/27 - post new pacemaker placement on Right side on 05/31/16. - Abx as noted below - ID has arranged for her antibiotics for home and we appreciate their help and recommendations with this complex patient: "The patient is ready for discharge today with high-dose cefazolin through June 17 and daptomycin through June 24. 2. Follow up labs have been ordered and discussed with the infusion company. 3. The patient will see me in my clinic June 12" # Acute bacteremia with MSSA/staph epidermidis. present on admission - On cefazolin/vancomycin initially. Replaced Vanc with Dapto per ID recs - PICC line was attempted on 06/02/16, failed. -- PICC line was placed on 06/03/2016 # Acute Perinephric abscess, present on admission. - On May 17 at [facility], Radiology placed a percutaneous drain into the right perinephric fluid collection, which yielded purulent material which turned out to be clindamycin resistant MSSA. - drain removed on 05/28/16 per ID recs # Type I diabetes with recent DKA - Based on her records of her insulin here, patient was given 40 U Lantus+SSI for discharge. - Sliding-scale changed to medium scale # Recent SVT s/p ablation - telemetry # Recent pacemaker insertion for complete heart block - s/p pacer removal and replacement as noted above # Hypothyroidism - Continue Synthroid 250 MCG daily - TSH WNL # PTSD/anxiety - Continue home meds Exam Vital Signs (Last) Date Time Temp Pulse Resp B/P Pulse Ox O2 Delivery O2 Flow Rate FiO2 06/04/16 13:27 36.6 102 18 157/103 99 Room Air Exam Eyes: [place] conjunctivae. No ptosis, PERRL Neck: No masses, trachea midline, no thyromegaly Lungs: CTA with normal respiratory effort CV: RRR, no murmurs/rubs/gallops GI: Soft, non-tender with no hepatosplenomegaly, normal bowel sounds Skin: Warm and dry. incision sites over L and R clean and dry. R IJ site has healing incisions as well. L upper arm has faint hematomas. Psych: A&O X3, with appropriate affect Test 05/20/16 16:25 05/20/16 17:00 05/20/16 20:42 05/21/16 08:00 Thyroid Stimulating Hormone (TSH) 3.320uIU/mL (0.450-4.500) Free Thyroxine 1.27ng/dL (0.82-1.77) Hold Purple Top Tube Received (Received) Hold [place] Top Tube Received (Received) Urine Color Yellow (YELLOW) Urine Appearance Clear (CLEAR,HAZY) Urine pH 6.0 (5.0-8.0) Urine Specific [place] 1.025 (1.003-1.035) Urine Protein Tracemg/dL (NEG,TRACE) Urine Glucose (UA) Negativemg/dL (NEGATIVE) Urine Ketones Negativemg/dL (NEGATIVE) Urine Occult Blood Trace (NEGATIVE) Urine Nitrite Negative (NEGATIVE) Urine Bilirubin Negative (NEGATIVE) Urine Urobilinogen Normalmg/dL (NORMAL) Urine Leukocyte Esterase Trace (NEGATIVE) Urine RBC 3-10/hpf (0-2) Urine WBC 6-10/hpf (0-5) Urine Epithelial Cells Moderate/hpf (NONE-MOD) Urine Crystals None seen (NONE SEEN) Urine Bacteria Few/hpf (NONE-FEW) Urine Hyaline Casts None/lpf (NONE) Urine Granular Casts None seen (NONE SEEN) Urine Waxy Casts None seen (NONE SEEN) Urine Red Blood Cell Casts None seen (NONE SEEN) Urine White Blood Cell Casts None seen (NONE SEEN) Urine Mucus None seen (None Seen) Urine Trichomonas None seen (NONE SEEN) Urine Yeast Many (NONE SEEN) Urinalysis Comment None Urine Culture Reflexed Indicated Erythrocyte Sedimentation Rate > 140mm/hr (0-32) Phosphorus Level 3.1mg/dL (2.5-4.9) Test 05/22/16 04:30 05/29/16 11:42 05/30/16 06:10 05/31/16 07:02 Magnesium Level 1.9mg/dL (1.6-2.6) Procalcitonin 0.07ng/mL (0.00-0.08) Vancomycin Level Trough 9.8mcg/mL Myelocytes % 1% (0-0) Neutrophils (%) (Auto) 59% (40-74) Lymphocytes (%) (Auto) 20% (14-46) Monocytes (%) (Auto) 6% (4-12) Eosinophils (%) (Auto) 13% (0-5) Basophils (%) (Auto) 0% (0-3) Band Neutrophils % 2% (1-5) Prothrombin Time 13.2sec (8.1-12.5) Prothromb Time International Ratio 1.23ratio Test 06/03/16 05:05 06/03/16 12:08 06/04/16 05:15 Hemoglobin A1c 9.8% (4.8-5.6) Total Creatine Kinase 28U/L (21-215) C-Reactive Protein 1.6mg/dL (0.0-0.5) White Blood Count 7.0th/mm3 (3.8-10.1) Red Blood Count 3.61mil/mm3 (3.90-5.20) Hemoglobin 9.5g/dL (12.0-15.6) Hematocrit 31.9% (35.0-46.0) Mean Corpuscular Volume 88.4fL (81-100) Mean Corpuscular Hemoglobin 26.3pg (27.0-35.0) Mean Corpuscular Hemoglobin Concent 29.8% (32.0-37.0) Red Cell Distribution Width 15.9% (12.3-15.4) Platelet Count 337bil/L (150-400) Sodium Level 143mEq/L (134-144) Potassium Level 4.2mEq/L (3.5-5.2) Chloride Level 101mEq/L (97-108) Carbon Dioxide Level 26mmol/L (18-29) Blood Urea Nitrogen 8mg/dL (6-20) Creatinine 0.80mg/dL (0.57-1.00) Estimat Glomerular Filtration Rate 115mL/min (>59) Glucose Level 155mg/dL (60-99) Calcium Level 8.5mg/dL (8.5-10.1) Total Bilirubin 0.3mg/dL (0.0-1.2) Aspartate Amino Transf (AST/SGOT) 11U/L (0-50) Alanine Aminotransferase (ALT/SGPT) 5U/L (0-32) Alkaline Phosphatase 123U/L (25-150) Total Protein 5.7g/dL (6.4-8.4) Albumin 2.4g/dL (3.4-5.0) Discharge Medications Discharge Medications Amitriptyline (Amitriptyline) 25 Mg Tab 50-100 MG PO HS (Reported) Aspirin Chew (Aspirin Chew) 81 Mg Chew 81 MG PO QAM (Reported) Atorvastatin (Lipitor) 80 Mg Tablet 80 MG PO HS (Reported) Cefazolin Sodium (Cefazolin IV) 1 Gm Vial 2 GM IV Q8H (Reported) Daptomycin (Daptomycin) 500 Mg Vial 700 MG IV QAM (Reported) Insulin Aspart (NovoLOG U-100 Pen) 100 Unit/Ml Insuln.pen 1-10 UNITS SQ ASDIRECTED (Reported) PER SLIDING SCALE Insulin Glargine (Lantus U100 Insulin Vial) 100 Unit/Ml Vial 15 UNIT SUBQ QAM ( Reported) TAKE LANTUS 15 UNITS IN AM AND 20 UNITS AT HS Insulin Glargine (Lantus U100 Insulin Vial) 100 Unit/Ml Vial 20 UNIT SUBQ HS ( Reported) TAKE LANTUS 15 UNITS IN AM AND 20 UNITS AT HS Levothyroxine (Levothyroxine) 200 Mcg Tablet 200 MCG PO QAM (Reported) TAKE LEVOTHYROXINE 200 MCG W/ 50 MCG TABLET (=250 MCG) TOTAL Levothyroxine (Levothyroxine) 50 Mcg Tablet 50 MCG PO QAM (Reported) TAKE LEVOTHYROXINE 200 MCG W/ 50 MCG TABLET (=250 MCG) TOTAL Lisinopril (Lisinopril) 20 Mg Tablet 20 MG PO QAM (Reported) Metoprolol Succinate ER (Metoprolol Succinate ER) 100 Mg Tab.er.24h 100 MG PO BID (Reported) Pantoprazole DR (Pantoprazole DR) 40 Mg Tablet.dr 40 MG PO BIDWM (Reported) Venlafaxine ER (Venlafaxine ER) 150 Mg Tab.er.24 150 MG PO QAM (Reported) As needed Cyclobenzaprine (Cyclobenzaprine) 10 Mg Tablet 10 MG PO TID PRN PRN Spasm ( Reported) Hydromorphone (Dilaudid) 2 Mg Tablet 2 MG PO q6 hrs PRN PRN For Pain Taper down as able. Prescribed by: CRISTIN ZHU DO Lorazepam (Ativan) 1 Mg Tablet 1 MG PO QID PRN PRN For Anxiety (Reported) Tramadol (Ultram) 50 Mg Tablet 50 MG PO Q4H PRN PRN For Mild Pain Prescribed by: GLORY GEORGE DO Additional med instructions Please note change to your home lantus. Please take 20 units at night and 15 units in the AM. Followup Plan Follow-up plan Please follow up with PCP in one week for Blood glucose check and HTN check Discharge Diet: Heart Healthy Discharge Activity: No restrictions Patient Instructions 1. The patient is ready for discharge today with high-dose cefazolin through June 17 and daptomycin through June 24. 2. Follow up labs have been ordered and discussed with the infusion company. 3. The patient will see Dr. Ambrose clinic June 12. 4. The potential for side effects was discussed with the patient and she was advised to call me should she developed fevers, chills, tenderness at either pacer site, muscle ache, nausea, vomiting or diarrhea. Glory George DO Jun 10, 2016 15:28
== END 2016-06-04 15:09 | disposition home or self-care (01) | DRG 171 ==
LOC: OSC 15:15 → MPC 05-27 15:45
PROVIDERS: ADMIT Internal Medicine; ATTEND Internal Medicine
PROC: B246ZZ4 Ultrasonography of Right and Left Heart, Transesophageal (ICD-10-PCS; 2016-05-22)
PROC: 0JPT3PZ Removal of Cardiac Rhythm Related Device from Trunk Subcutaneous Tissue and Fascia, Percutaneous Approach (ICD-10-PCS; 2016-05-27)
PROC: 5A1223Z Performance of Cardiac Pacing, Continuous (ICD-10-PCS; 2016-05-27)
PROC: 02PA3MZ Removal of Cardiac Lead from Heart, Percutaneous Approach (ICD-10-PCS; 2016-05-27)
PROC: 0JH606Z Insertion of Pacemaker, Dual Chamber into Chest Subcutaneous Tissue and Fascia, Open Approach (ICD-10-PCS; principal; 2016-05-31)
PROC: 02H63JZ Insertion of Pacemaker Lead into Right Atrium, Percutaneous Approach (ICD-10-PCS; 2016-05-31)
PROC: 02HK3JZ Insertion of Pacemaker Lead into Right Ventricle, Percutaneous Approach (ICD-10-PCS; 2016-05-31)
DX: T82.7XXA Infection and inflammatory reaction due to other cardiac and vascular devices, implants and grafts, initial encounter (principal); N15.1 Renal and perinephric abscess; I44.2 Atrioventricular block, complete; R78.81 Bacteremia; Z68.41 Body mass index [BMI] 40.0-44.9, adult; E10.9 Type 1 diabetes mellitus without complications; E03.9 Hypothyroidism, unspecified; F43.10 Post-traumatic stress disorder, unspecified; E66.01 Morbid (severe) obesity due to excess calories

== ENCOUNTER 2016-06-05 19:10 | Inpatient (IN) | payer OTHER ==
[~2016-06-05] VITALS: Ht 162.6 cm; Wt 104.1 kg
[~2016-06-05 19:10] MED LIST changes: +ASPI81TA3 PO; -DOXY100C2 PO; -HYDR-4003 PO; +INSU100V7 SUBQ; -INSU300I SQ; +METO-274 PO; +TRAM-14 PO
[2016-06-05 19:18] VITALS: BP 173/95; PULSE 131; RESP 20; O2SAT 99
[2016-06-05] MEDS ORDERED: 0.9% Sodium Chloride 1,000 ML IV ONE ×2 (19:30)
--- NOTE | 2016-06-05 19:34 | ED.REPORT ---
HPI-General Illness Date of Service Jun 05, 2016 ED Provider: Ludin Thao MD A 36 year old female with a medical history including diabetes, renal abscess, SVT, and "heart block" s/p pacemaker placement presents to the ED with generalized weakness onset 23:30 last night. Associated symptoms include lightheadedness, fatigue, reduced appetite, diarrhea, nausea, shortness of breath, pleuritic chest pain, and hyperglycemia (347 at 1700 today). The patient denies dysuria, hematuria, or other symptoms. The patient was discharged yesterday after a three week admission (05/20-06/04) for MSSA bacteremia from perinephric abscess probably causing pacemaker site infection, during which her pacemaker was replaced. She was discharged with IV antibiotics to self-administer. There is no discharge summary yet written for this visit. Nursing Notes Stated Complaint: TROUBLE BREATHING, HIGH BLOOD SUGAR Chief Complaint: General Complaint Nursing Notes Reviewed: Yes Allergies: Coded Allergies: amoxicillin (Verified Allergy, Severe, SHORTNESS OF BREATH, 03/26/16) Sulfa (Sulfonamide Antibiotics) (Verified Allergy, Intermediate, RASH, 06/05) adhesive tape (Verified Allergy, Intermediate, REDNESS, 03/26/16) promethazine (Verified Allergy, Intermediate, SIDE EFFECTS JITTERY, ) oxycodone (Verified Adverse Reaction, Intermediate, SIDE EFFECT HALLUCINATIONS AND VOMITING, 03/26/16) Scheduled Amitriptyline (Amitriptyline) 25 Mg Tab 50-100 MG PO HS Aspirin Chew (Aspirin Chew) 81 Mg Chew 81 MG PO QAM Atorvastatin (Lipitor) 80 Mg Tablet 80 MG PO HS Cefazolin Sodium (Cefazolin IV) 1 Gm Vial 2 GM IV Q8H Daptomycin (Daptomycin) 500 Mg Vial 700 MG IV QAM Insulin Aspart (NovoLOG U-100 Pen) 100 Unit/Ml Insuln.pen 1-10 UNITS SQ ASDIRECTED PER SLIDING SCALE Insulin Glargine (Lantus U100 Insulin Vial) 100 Unit/Ml Vial 15 UNIT SUBQ QAM TAKE LANTUS 15 UNITS IN AM AND 20 UNITS AT HS Insulin Glargine (Lantus U100 Insulin Vial) 100 Unit/Ml Vial 20 UNIT SUBQ HS TAKE LANTUS 15 UNITS IN AM AND 20 UNITS AT HS Levothyroxine (Levothyroxine) 200 Mcg Tablet 200 MCG PO QAM TAKE LEVOTHYROXINE 200 MCG W/ 50 MCG TABLET (=250 MCG) TOTAL Levothyroxine (Levothyroxine) 50 Mcg Tablet 50 MCG PO QAM TAKE LEVOTHYROXINE 200 MCG W/ 50 MCG TABLET (=250 MCG) TOTAL Lisinopril (Lisinopril) 20 Mg Tablet 20 MG PO QAM Metoprolol Succinate ER (Metoprolol Succinate ER) 100 Mg Tab.er.24h 100 MG PO BID Pantoprazole DR (Pantoprazole DR) 40 Mg Tablet.dr 40 MG PO BIDWM Venlafaxine ER (Venlafaxine ER) 150 Mg Tab.er.24 150 MG PO QAM Scheduled PRN Cyclobenzaprine (Cyclobenzaprine) 10 Mg Tablet 10 MG PO TID PRN PRN Spasm Lorazepam (Ativan) 1 Mg Tablet 1 MG PO QID PRN PRN For Anxiety Tramadol (Ultram) 50 Mg Tablet 50 MG PO Q4H PRN PRN For Mild Pain General Time Seen by MD: 19:30 Chief Complaint Weakness Hx Obtained From: Patient Arrived By: Walk-in Sudden in Onset?: No Onset Occurred: Yesterday Symptom Duration: Since onset Location: : Chest Quality: Painful, Pleuritic Severity: Current: Moderate Severity: Maximum: Moderate Pertinent Negative: Relieved by nothing Context Related History: Reports Diabetes mellitus Recent Healthcare: Recent doctor visit, Recent hospitalization Past Medical History Past Medical History Type I diabetes Graves' disease 1991 PTSD/anxiety History of medication noncompliance SVT Heart Block Anxiety Uterine fibroids Hiatal hernia Renal abscess Reports: Diabetes mellitus Past Surgical History Cholecystectomy Partial thyroidectomy Right oopherectomy Right abdominal hernia repair with appendectomy SVT ablation on 03/26/16 Pacemaker insertion 03/27/16 for complete heart block Pacemaker replacement 06/2016 Right percutaneous nephrostomy Left foot surgery Family History Father with type II diabetes currently on dialysis. Mother had knee problems half brother had type I diabetes and at age 33 due to possible hypoglycemia Smoking History Never Smoker Social History Alcohol Use: Denies alcohol use Drug Use: Denies drug use Other Social History: Good social support Ambulatory Status Independent Review of Systems + Reduced appetite, hyperglycemia (347 at 1700 today) Full Review of Systems Constitutional: Reports: Fatigue, Weakness - generalized, Denies: Fever Respiratory: Reports: Pleuritic pain, Shortness of breath, Denies: Non-productive cough Cardiovascular: Reports: Chest pain GI: Reports: Diarrhea, Nausea Female: Denies: Dysuria, Hematuria Neurologic: Reports: Lightheaded Complete sys rev & neg: except as marked. Physical Exam Vital Signs Vital Signs Date Time Temp Pulse Resp B/P Pulse Ox O2 Delivery O2 Flow Rate FiO2 06/05/16 20:15 123 27 162/85 100 Room Air 06/05/16 19:18 36.3 131 20 173/95 99 Room Air Initial VS: Reviewed General/Constitutional: Awake, Alert Head / Eyes: Atraumatic, Normocephalic ENT: Airway patent Mouth: Positive: Mucous membranes dry Respiratory / Chest: Breath sounds NL, Breath sounds = bilat, No respiratory distress Pacemaker placement surgical scar present in left anterior chest wall with angelique present. Scar is well healing without signs of infection. Surgical incision in right anterior chest wall, well healing with steri-strips present Cardiovascular: Regular rhythm, Heart sounds NL, Peripheral circulation NL ( Good distal pulses) Heart Rate / Rhythm: Positive: Tachycardia Abdomen: Soft, Non-tender, No distention Tolerates firm palpation in all four quadrants Back: Full range of motion Well-healing site at right flank where drain was previously inserted Upper Extremities Upper Extremity / MS: Full range of motion PICC line in left forearm with no swelling, warmth, or signs of infection Lower Extremity / Pelvis / MS: No swelling (Bilateral calves), Non-tender ( Bilateral calves) Interpretation & Diagnostics Lab Results Interpretation Result Diagram: 06/05/16193606/05/161936 Test 06/05/16 19:37 06/05/16 20:55 06/05/16 21:24 White Blood Count 11.0th/mm3 (3.8-10.1) Red Blood Count 3.90mil/mm3 (3.90-5.20) Hemoglobin 10.1g/dL (12.0-15.6) Hematocrit 33.8% (35.0-46.0) Mean Corpuscular Volume 86.7fL (81-100) Mean Corpuscular Hemoglobin 25.9pg (27.0-35.0) Mean Corpuscular Hemoglobin Concent 29.9% (32.0-37.0) Red Cell Distribution Width 15.5% (12.3-15.4) Platelet Count 348bil/L (150-400) Neutrophils (%) (Auto) 81.1% (40-74) Lymphocytes (%) (Auto) 9.9% (14-46) Monocytes (%) (Auto) 7.1% (4-12) Eosinophils (%) (Auto) 1.1% (0-5) Basophils (%) (Auto) 0.5% (0-3) Prothrombin Time 20.1sec (8.1-12.5) Prothromb Time International Ratio 1.85ratio Sodium Level 139mEq/L (134-144) Potassium Level 3.5mEq/L (3.5-5.2) Chloride Level 99mEq/L (97-108) Carbon Dioxide Level 16mmol/L (18-29) Blood Urea Nitrogen 6mg/dL (6-20) Creatinine 0.86mg/dL (0.57-1.00) Estimat Glomerular Filtration Rate 106mL/min (>59) Glucose Level 260mg/dL (60-99) Calcium Level 8.8mg/dL (8.5-10.1) Magnesium Level 1.2mg/dL (1.6-2.6) Total Bilirubin 0.2mg/dL (0.0-1.2) Aspartate Amino Transf (AST/SGOT) 8U/L (0-50) Alanine Aminotransferase (ALT/SGPT) < 5U/L (0-32) Alkaline Phosphatase 112U/L (25-150) Troponin T < 0.010ug/L (0.0-0.011) Pro-B-Type Natriuretic Peptide 3919pg/mL (0-130) Total Protein 6.6g/dL (6.4-8.4) Albumin 2.8g/dL (3.4-5.0) Lipase 10U/L (13-60) Hold Brandon Top Tube Received (Received) Urine Color Yellow (YELLOW) Urine Appearance Hazy (CLEAR,HAZY) Urine pH 5.5 (5.0-8.0) Urine Specific [place] 1.015 (1.003-1.035) Urine Protein Tracemg/dL (NEG,TRACE) Urine Glucose (UA) 250mg/dL (NEGATIVE) Urine Ketones 80mg/dL (NEGATIVE) Urine Occult Blood Moderate (NEGATIVE) Urine Nitrite Negative (NEGATIVE) Urine Bilirubin Negative (NEGATIVE) Urine Urobilinogen Normalmg/dL (NORMAL) Urine Leukocyte Esterase Moderate (NEGATIVE) Urine RBC 3-10/hpf (0-2) Urine WBC 6-10/hpf (0-5) Urine Epithelial Cells Moderate/hpf (NONE-MOD) Urine Crystals Amorphous urates (NONE Urine Bacteria Moderate/hpf (NONE-FEW) Urine Hyaline Casts None/lpf (NONE) Urine Granular Casts None seen (NONE SEEN) Urine Waxy Casts None seen (NONE SEEN) Urine Red Blood Cell Casts None seen (NONE SEEN) Urine White Blood Cell Casts None seen (NONE SEEN) Urine Mucus None seen (None Seen) Urine Trichomonas None seen (NONE SEEN) Urine Yeast None (NONE SEEN) Urinalysis Comment None Urine Culture Reflexed Indicated Lactic Acid Level 1.8mmol/L (0.4-2.0) Human Chorionic Gonadotropin, Qual Negative (Negative) ECG Interpretation ECG Interpretation: Sinus tachycardia rate 123 Left axis deviation Intraventricular conduction delay Borderline ST elevation about anterolateral leads When compared to prior 06/01/2016 patient is no longer in atrial-sensed ventricular paced rhythm Time: 19:37 Interpreted by: ED physician X-Ray Chest Interpretation Chest Xray Interpretation: IMPRESSION: Mild diffuse interstitial prominence suggests mild pulmonary congestion. Dictated by: Aden Amador M.D. on 06/05/2016 at 20:05 View: Portable, 1 view Interpretation / Wet Read by: Interpret - Radiologist CT Chest Interpretation IMPRESSION: 1. No evidence for central pulmonary embolism. 2. Mild increase in bilateral small to moderate pleural effusions. Dictated by: Aden Amador M.D. on 06/05/2016 at 21:29 Study type: CT pulm angiogram Interpretation / Wet Read by: Interpret - Radiologist CT Abd / Pelvis Interpretation IMPRESSION: 1. A small abscess cavity anterolateral to the right kidney, which is unchanged in size compared to 05/23/2016. 2. A trace amount of free fluid. 3. Bilateral fytfr-mp-[id number] pleural effusions, slightly increased. Dictated by: Aden Amador M.D. on 06/05/2016 at 21:40 Study type: Abdominal CT IV contrast Interpretation / Wet Read by: Interpret - Radiologist Re-Eval/Medical Decision Med Decision/Clinical Course The patient is a very medically complex 36-year-old female with past medical history notable for type I diabetes, "heart block" with Taye maker who was just discharged from the hospital yesterday after a prolonged admission for right perinephric abscess treated with surgical drain and IV antibiotics. Of note she apparently developed bacterial seeding of her implanted pacemaker during this most recent admission requiring her pacemaker being removed and replaced. Presented to the emergency department today complaining of weakness, fatigue, inability to tolerate PO, vomiting, dehydration and generalized weakness. On arrival to the emergency department she is tachycardic with a heart rate in the 130s O otherwise hemodynamically stable and afebrile though she is generally unwell in appearance. Her EKG demonstrates tachycardia with a heart rate in the 130s and a nonspecific intraventricular conduction delay. Of note I do not see any discernible pacer spikes though her QRS complexes are similar in appearance to her previous EKGs. She is notably much more tachycardic than when she was discharged. The patient's symptoms are quite vague and she does complain of pleuritic-type chest pain and significant worsening shortness of breath. Therefore given her recent hospitalization I opted to obtain a CT angiography of her chest did not demonstrate any pulmonary embolism. The patient's declining status and recent removal of her right sided surgical drain I also considered reaccumulation of abscess and obtained a repeat contrast CT scan of the abdomen and pelvis as above which did not demonstrate any significant recurrent fluid collection. CXR: Mild diffuse interstitial prominence suggests mild pulmonary congestion. Initial CBC was not significantly changed from prior. Metabolic panel demonstrated good renal function and no significant electrolyte abnormalities. Her lactic acid was elevated at 2.3 and her BNP was nearly 4000. She appeared quite dehydrated however and I judiciously administered fluids. Repeat lactate was improved. Urinalysis was consistent with UTI however she is already being aggressively treated with antibiotics through her PICC line. Blood cultures have been obtained and sent to the lab. The cause of the patient's declining condition is not entirely clear however finding of pulmonary edema is difficult to explain and warrants further workup, likely with echocardiogram. I feel that the patient requires admission and has been discussed with the accepting hospitalist. She was transferred in stable condition. She will be maintained on broad-spectrum antibiotics and closely monitored for deterioration. Source of Hx: Old records Time of Eval: 23:38 Patient Status: Condition improved Re-Evaluation/Progress Note: Discussed with patient CT, lab, and x-ray results, diagnosis, and plan for admit. Patient agrees with plan for care and all questions were addressed. Consultation #1: Referral / Consult Name: Vamsi Garcias MD Consulted With: Hospitalist Call Returned at: 20:43 Biochemical Engineer: Agrees with eval, Agrees with plan Note: Discussed patient's case in depth. Consultation #2: Referral / Consult Name: Vamsi Garcias MD Consulted With: Hospitalist Call Returned at: 22:11 Biochemical Engineer: Agrees with eval, Agrees with plan, Accepts admit Counseled Regarding: Diagnosis, Lab results, Need for admission Discharge & Departure Primary Impression: Perinephric abscess Additional Impressions: Bacteremia CHB (complete heart block) SVT (supraventricular tachycardia) Generalized weakness History of pacemaker Leukocytosis Leukocytosis type: unspecified Qualified Code: D72.829 - Elevated white blood cell count, unspecified Lactic acidosis Disposition: ADMITTED TO HOSPITAL Discharge Condition All VS Reviewed: Yes Condition: Improved Referrals: Arielle Aguilar DO (PCP) Crit Care Except Billable Proc Time Spent: 105-134 minutes Services Performed: Patient management by me, Time spent at bedside, Reviewing test results, Reviewing imaging, Discussing patient care, Documentation in record, Time with fam/surrogate Scribe Attestation Portions of this note were transcribed by Sadia Vyas. I, Dr. Thao, personally performed the history, physical exam, and medical decision-making; I reviewed and confirmed the accuracy of the information in the transcribed note. Signed by: Moise Squires, 06/05/2016, 23:45 copies to: Arielle Aguilar Beck O MD Jun 05, 2016 19:34 SADIA VYAS Jun 05, 2016 20:14
[2016-06-05 19:52] LABS: BASOPHILS % (AUTO) 0.5 % (0-3); EOSINOPHILS % (AUTO) 1.1 % (0-5); MONOCYTES % (AUTO) 7.1 % (4-12); Mean Corpuscular Hemoglobin 25.9 pg (27.0-35.0); Mean Corpuscular Volume 86.7 fL (81-100); NEUTROPHILS % (AUTO) 81.1 % (40-74); Platelet Count 348 bil/L (150-400)
[2016-06-05 20:07] LABS: INR 1.85 ratio
--- NOTE | 2016-06-05 20:09 | DRSVH ---
PROCEDURE: X-RAY CHEST ONE VIEW, PORTABLE ([id number]) INDICATIONS: SHORT OF BREATH TECHNIQUE: One view of the chest was acquired. COMPARISON: [facility], CR, XR CHEST 2VW, 06/01/2016, 8:23. FINDINGS: Surgical changes and devices: There are surgical angelique in the left upper thorax. A right sided card iac pacemaker is seen with the thin expected position. There is a left PICC with the tip in SVC. Lungs and pleura: Mild diffuse interstitial prominence. No pleural effusions or pneumothorax. Mediastinum: Mediastinal contours appear normal. Heart size is normal. Bones and chest wall: No suspicious bony lesions. Overlying soft tissues appear unremarkable. IMPRESSION: Mild diffuse interstitial prominence suggests mild pulmonary congestion. Dictated by: Aden Amador M.D. on 06/05/2016 at 20:05 Approved by: Aden Amador M.D. on 06/05/2016 at 20:07
[2016-06-05 20:15] VITALS: BP 162/85; PULSE 123; RESP 27; O2SAT 100
[2016-06-05 20:15] LABS: TROPONIN T < 0.010 ug/L (0.0-0.011)
[2016-06-05 20:26] LABS: Lipase 10 U/L (13-60)
[2016-06-05 20:39] LABS: Magnesium 1.2 mg/dL (1.6-2.6)
[2016-06-05] MEDS ORDERED: Alum-Mag Hydrox-Simeth 30 mL Suspension PO PRN (20:55)
[2016-06-05 21:09] LABS: APPEARANCE,URINE HAZY (CLEAR,HAZY); COLOR,URINE YELLOW (YELLOW); PH,URINE 5.5 (5.0-8.0)
[2016-06-05 21:10] LABS: OCCULT BLOOD,URINE MODERATE (NEGATIVE); UROBILINOGEN,URINE NORMAL (NORMAL)
--- NOTE | 2016-06-05 21:42 | DRSVH ---
PROCEDURE: CT ANGIO CHEST PULMONARY EMBOLISM ([id number]) INDICATIONS: tachycardia, pleuritic CP TECHNIQUE: After the administration of intravenous contrast, 2 mm thick sections acquired from the pulmonary api karin to the posterior costophrenic angles. 3-dimensional maximum intensity projection (MIP) coronal a nd sagittal reformats were then acquired through the thorax. For radiation dose reduction, the follo wing was used: automated exposure control, adjustment of mA and/or kV according to patient size. COMPARISON: [facility], CR, XR CHEST 2VW, 05/28/2016, 6:40. [facility], CT, CT ABD W CON, 05/28/2016, 13:55. [facility], CR, XR CHEST 2VW, 06/01/2016, 8:23. [facility], CR, XR CHEST 1VW (PORTABLE), 06/05/2016, 19:35. FINDINGS: Image quality: Excellent. Pulmonary arteries: Pulmonary arteries are normal in size, and demonstrate no intraluminal filling d efects to suggest central pulmonary embolism. Lungs and pleura: There are bilateral [id number] pleural effusions and bibasilar compression atelectasis. Pleural effusions are slightly increased compared with 05/20/2016. No pneumothorax. Cent ral and peripheral airways are patent. Mediastinum: Heart size is normal, without pericardial effusion. No mediastinal or hilar adenopathy . Thoracic aorta is normal in caliber and enhancement. Esophagus is normal in caliber, without hiat al hernia. Bones and chest wall: No suspicious bony lesions. Ribs and thoracic spine appear intact throughout. Thyroid gland is normal. No axillary or supraclavicular adenopathy. There are surgical angelique in the left anterior chest. Abdomen: Visualized upper abdominal solid organs appear normal in the early arterial phase of enhanc ement. IMPRESSION: 1. No evidence for central pulmonary embolism. 2. Mild increase in bilateral small to moderate pleural effusions. Dictated by: Aden Amador M.D. on 06/05/2016 at 21:29 Approved by: Aden Amador M.D. on 06/05/2016 at 21:40
--- NOTE | 2016-06-05 21:50 | DRSVH ---
PROCEDURE: CT ABDOMEN AND PELVIS WITH CONTRAST ([id number]) INDICATIONS: tachycardia, pleuritic CP TECHNIQUE: After the administration of intravenous contrast, 5 mm thick sections acquired from the diaphragm to the symphysis. 5 mm coronal and sagittal reformats were acquired. For radiation dose reduction, the following was used: automated exposure control, adjustment of mA and/or kV according to patient siz e. COMPARISON: [facility], CT, ABDOMEN WITHOUT CONTRAST, 05/20/2016, 7:39. [facility], CT, CT ABD W CON, 05/28/2016, 13:55. FINDINGS: Image quality: Excellent. ABDOMEN: Lung bases: There are small to moderate bilateral pleural effusions, increased compared to the last e xam. Basilar compression atelectasis. Heart size is normal. Solid organs: Liver and spleen are normal in size and enhancement. Gallbladder is surgically absent . Biliary system is non dilated. Pancreas enhances normally. No adrenal nodules. Kidneys demonstr ate normal size and enhancement, without hydronephrosis. Peritoneum and bowel: A small rim enhancing fluid collection consistent with abscess is seen in the anterior lateral aspect of the right kidney measuring 1.3 x 2.2 cm, unchanged in size. There is a tra ce amount of free fluid near the inferior origin of liver and in the right perinephric space. Bowel l oops demonstrate normal wall thickness and caliber. No free air. Nodes and vessels: No retroperitoneal or mesenteric adenopathy by size criteria. Aorta and inferior vena cava are normal in size. Miscellaneous: No ventral hernias. There is mild bodywear edema. PELVIS: Genitourinary: Bladder wall thickness is normal. Uterus is unremarkable. The left ovary is prominen t measuring 3.2 x 3.8 cm. The right ovary is not visualized. Miscellaneous: No inguinal hernias or adenopathy. Bones: No suspicious bony lesions. No vertebral body compression fractures. IMPRESSION: 1. A small abscess cavity anterolateral to the right kidney, which is unchanged in size compared to . 2. A trace amount of free fluid. 3. Bilateral [id number] pleural effusions, slightly increased. Dictated by: Aden Amador M.D. on 06/05/2016 at 21:40 Approved by: Aden Amador M.D. on 06/05/2016 at 21:48
[2016-06-05] MEDS ORDERED: INSU100V7 SUBQ ×2 (21:55→22:20)
[2016-06-05] MEDS ORDERED: HYDROmorphone 1 mg/mL Inj IVPUSH ONE (21:55)
[2016-06-05] MEDS: Ondansetron 2 mg/mL 2 mL Inj IVPUSH PRN (22:03)
[2016-06-05] MEDS ORDERED: CEFA1VIA3 IV (22:18)
[2016-06-05] MEDS ORDERED: DAPT500V2 IV (22:18)
[2016-06-05 22:42] VITALS: BP 160/77; PULSE 124; RESP 30; O2SAT 97
[2016-06-05 23:24] VITALS: BP 160/94; PULSE 122; RESP 18; O2SAT 100
--- NOTE | 2016-06-05 23:33 | PCM.HPMED ---
Subjective Date of Service Jun 05, 2016 Primary Provider: Admitting Physician: Vamsi Garcias MD Primary Care Physician: Arielle Aguilar DO Attending Physician: Vamsi Garcias MD Chief Complaint: Difficulty breathing, elevated blood glucose, generalized weakness, lightheadedness fatigue, reduced appetite, shortness of breath, pleuritic chest pain History of Present Illness: This is a pleasant 36-year-old female with past medical history of type I diabetes, Graves' disease, SVT with pacemaker placement status post ablation, with with repeat placement of new pacemaker after possible bacterial contamination, and history of right-sided perinephric abscess status post nephrostomy tube removal on May 28, patient was recently discharged from from [facility] on 06/04/2016 secondary to admission for perinephric abscess and was placed on cefazolin and and daptomycin as an outpatient by Dr. Ambrose infectious disease. Patient presented to the ED today complaining of generalized weakness and fatigue onset 2300 on 06/05/2016 with associated symptoms of lightheadedness fatigue resulting in fall but did not hit head, reduced appetite, watery diarrhea, nausea and shortness of breath with exertion as well as pleuritic chest pain. Note patient has had mild nonproductive cough for 24 hours. Patient had ketones 80 in the urine, and an anion gap of 24 on admission. Patient had a blood glucose of 260 and 80. Patient reports that she had a glucose of 347 at 1700 this evening and had taken 20 units of her NovoLog U1 100 at home which reduced her blood glucose to 172 presently. Patient did not have PE on CT however did show bilateral kmnbz-nf-mnvwiglz pleural effusions slightly increased from prior study. Patient denies fevers, abdominal pain, vomiting, dysuria, hematuria, constipation, Vital signs: Temperature 36.3, pulse 131, respiratory rate 30, blood pressure 173/95 with a map of 121, 16% in room air. In the ED patient received 2 L IV bolus of saline. Hemogram showed elevated WBCs at 11.0, with 81.1% PMNs, hemoglobin 10.1, hematocrit 33.8, platelets 348, MCH 25.9 MCHC 29.9, RDW 15.5 Chemistry panel: Showed carbon dioxide 16.0, glucose 260, lactic acid 2.3 with repeat lactic acid 1.8, magnesium 1.2 low, proBNP 3919, opium and 2.8, hCG was negative, otherwise normal cancer panel. PT 20.1, INR 125 UA significant for pH of 5.5, glucose 250, urine ketones 80, moderate blood, moderate leukocyte esterase, 6-10 white blood cells per high-power field, amorphous urate crystals, moderate bacteria. Urine culture are pending Blood cultures ordered and pending CT abdomen showed: 1. A small abscess cavity anterolateral to the right kidney, which is unchanged in size compared to 05/23/2016. 2. A trace amount of free fluid. 3. Bilateral edlua-rm-ogrzokfy pleural effusions, slightly increased. CT Angio chest: 1. No evidence for central pulmonary embolism. 2. Mild increase in bilateral small to moderate pleural effusions. CXR: Mild diffuse interstitial prominence suggests mild pulmonary congestion. Review of Systems: A comprehensive review of systems was conducted and was negative except as mentioned in history of present illness. Allergies Coded Allergies: amoxicillin (Verified Allergy, Severe, SHORTNESS OF BREATH, 03/26/16) Sulfa (Sulfonamide Antibiotics) (Verified Allergy, Intermediate, RASH, 06/06) adhesive tape (Verified Allergy, Intermediate, REDNESS, 03/26/16) promethazine (Verified Allergy, Intermediate, SIDE EFFECTS JITTERY, ) oxycodone (Verified Adverse Reaction, Intermediate, SIDE EFFECT HALLUCINATIONS AND VOMITING, 03/26/16) Home Medications Amitriptyline (Amitriptyline) 25 Mg Tab 50-100 MG PO HS Aspirin Chew (Aspirin Chew) 81 Mg Chew 81 MG PO QAM Atorvastatin (Lipitor) 80 Mg Tablet 80 MG PO HS Cefazolin Sodium (Cefazolin IV) 1 Gm Vial 2 GM IV Q8H Daptomycin (Daptomycin) 500 Mg Vial 700 MG IV QAM Insulin Aspart (NovoLOG U-100 Pen) 100 Unit/Ml Insuln.pen 1-10 UNITS SQ ASDIRECTED PER SLIDING SCALE Insulin Glargine (Lantus U100 Insulin Vial) 100 Unit/Ml Vial 15 UNIT SUBQ QAM TAKE LANTUS 15 UNITS IN AM AND 20 UNITS AT HS Insulin Glargine (Lantus U100 Insulin Vial) 100 Unit/Ml Vial 20 UNIT SUBQ HS TAKE LANTUS 15 UNITS IN AM AND 20 UNITS AT HS Levothyroxine (Levothyroxine) 200 Mcg Tablet 200 MCG PO QAM TAKE LEVOTHYROXINE 200 MCG W/ 50 MCG TABLET (=250 MCG) TOTAL Levothyroxine (Levothyroxine) 50 Mcg Tablet 50 MCG PO QAM TAKE LEVOTHYROXINE 200 MCG W/ 50 MCG TABLET (=250 MCG) TOTAL Lisinopril (Lisinopril) 20 Mg Tablet 20 MG PO QAM Metoprolol Succinate ER (Metoprolol Succinate ER) 100 Mg Tab.er.24h 100 MG PO BID Pantoprazole DR (Pantoprazole DR) 40 Mg Tablet.dr 40 MG PO BIDWM Venlafaxine ER (Venlafaxine ER) 150 Mg Tab.er.24 150 MG PO QAM PRN Cyclobenzaprine (Cyclobenzaprine) 10 Mg Tablet 10 MG PO TID PRN PRN Spasm Lorazepam (Ativan) 1 Mg Tablet 1 MG PO QID PRN PRN For Anxiety Tramadol (Ultram) 50 Mg Tablet 50 MG PO Q4H PRN PRN For Mild Pain PMH Type I diabetes Graves' disease 1991 PTSD/anxiety History of medication noncompliance SVT Heart Block Anxiety Uterine fibroids Hiatal hernia Renal abscess Reports: Diabetes mellitus History pacemaker secondary to heart block, now status post pacemaker placement secondary to infected component Surgical History Cholecystectomy Partial thyroidectomy Right oopherectomy Right abdominal hernia repair with appendectomy SVT ablation on 03/26/16 Pacemaker insertion 03/27/16 for complete heart block Pacemaker replacement 06/2016 Right percutaneous nephrostomy Left foot surgery Family History Father with type II diabetes currently on dialysis. Mother had knee problems half brother had type I diabetes and at age 33 due to possible hypoglycemia Social History Hx Alcohol Use: No Hx Substance Use: No Smoking Status: Never Smoker Exam Vital Signs Vital Sign - Last Date Time Temp Pulse Resp B/P Pulse Ox O2 Delivery O2 Flow Rate FiO2 06/05/16 23:24 36.8 122 18 160/94 100 Room Air Exam General: He is alert oriented 3, no acute distress, speaking in full sentences , lying in the bed, patient is obese HEENT: NC/AT, eyes, PERRLA, EOMI, neck, soft supple, no adenopathy, no JVD, no masses, no thyromegaly old surgical scar at base of neck likely from partial thyroidectomy, throat mucous membranes pink and moist, no erythema, no exudates , no tonsillar swelling, no uvular deviation. Lungs: CTAB all harrison, no wheezes, no rhonchi, no crackles, no adventitious lung sounds, no use of accessory muscles of respiration, good air movement, good respiratory effort. Left pectoral surgical scar from removal of pacemaker , right pectoral surgical scar from replacement of new pacemaker, with bandage intact and dry Heart: Tachycardic and rhythm regular, no murmur, S1-S2 present, no rub, no click, no distant heart sounds, Abdomen: Soft, nontender, nondistended, bowel sounds active, no rebound, no guarding, abdomen is obese and has rash in the intertriginous areas of the pannus consistent with candidal infection, covered in ointment Genitourinary: Right side CVA tenderness at location of prior nephrostomy tube, no suprapubic tenderness, no Thomason catheter, Extremities: Muscle strength, 5 out of 5 upper/lower extremity and symmetric laterally, pulses equal and symmetric upper/lower extremity including radial and dorsalis pedis, no edema Neurologic: Grossly neurologically intact, speaking in full sentences, no focal neurological signs, Skin: Dry, rash in the intertriginous areas as previously stated of the pannus Psychiatric: Mood and affect are congruent and appropriate. Lab and Diagnostics Result Diagram: 06/05/16193606/05/161936 X-Rays, CTs and MRIs Date of Service: 06/05/162047 PROCEDURE: CT ABDOMEN AND PELVIS WITH CONTRAST INDICATIONS: tachycardia, pleuritic CP TECHNIQUE: After the administration of intravenous contrast, 5 mm thick sections acquired from the diaphragm to the symphysis. 5 mm coronal and sagittal reformats were acquired. For radiation dose reduction, the following was used: automated exposure control, adjustment of mA and/or kV according to patient size. COMPARISON: [facility], CT, ABDOMEN WITHOUT CONTRAST, 05/20/2016, 7:39. [facility], CT, CT ABD W CON, 05/28/2016, 13:55. FINDINGS: Image quality: Excellent. ABDOMEN: Lung bases: There are small to moderate bilateral pleural effusions, increased compared to the last exam. Basilar compression atelectasis. Heart size is normal. Solid organs: Liver and spleen are normal in size and enhancement. Gallbladder is surgically absent. Biliary system is non dilated. Pancreas enhances normally. No adrenal nodules. Kidneys demonstrate normal size and enhancement, without hydronephrosis. Peritoneum and bowel: A small rim enhancing fluid collection consistent with abscess is seen in the anterior lateral aspect of the right kidney measuring 1.3 x 2.2 cm, unchanged in size. There is a trace amount of free fluid near the inferior origin of liver and in the right perinephric space. Bowel loops demonstrate normal wall thickness and caliber. No free air. Nodes and vessels: No retroperitoneal or mesenteric adenopathy by size criteria. Aorta and inferior vena cava are normal in size. Miscellaneous: No ventral hernias. There is mild bodywear edema. PELVIS: Genitourinary: Bladder wall thickness is normal. Uterus is unremarkable. The left ovary is prominent measuring 3.2 x 3.8 cm. The right ovary is not visualized. Miscellaneous: No inguinal hernias or adenopathy. Bones: No suspicious bony lesions. No vertebral body compression fractures. IMPRESSION: 1. A small abscess cavity anterolateral to the right kidney, which is unchanged in size compared to 05/23/2016. 2. A trace amount of free fluid. 3. Bilateral pchay-aw-togpazhe pleural effusions, slightly increased. Dictated by: Aden Amador M.D. on 06/05/2016 at 21:40 Approved by: Aden Amador M.D. on 06/05/2016 at 21:48 Date of Service: 06/05/162047 PROCEDURE: CT ANGIO CHEST PULMONARY EMBOLISM INDICATIONS: tachycardia, pleuritic CP TECHNIQUE: After the administration of intravenous contrast, 2 mm thick sections acquired from the pulmonary apices to the posterior costophrenic angles. 3-dimensional maximum intensity projection (MIP) coronal and sagittal reformats were then acquired through the thorax. For radiation dose reduction, the following was used: automated exposure control, adjustment of mA and/or kV according to patient size. COMPARISON: [facility], CR, XR CHEST 2VW, 05/28/2016, 6:40. [facility], CT, CT ABD W CON, 05/28/2016, 13:55. [facility], CR , XR CHEST 2VW, 06/01/2016, 8:23. [facility], CR, XR CHEST 1VW ( PORTABLE), 06/05/2016, 19:35. FINDINGS: Image quality: Excellent. Pulmonary arteries: Pulmonary arteries are normal in size, and demonstrate no intraluminal filling defects to suggest central pulmonary embolism. Lungs and pleura: There are bilateral gshcz-ij-lkblqzcr pleural effusions and bibasilar compression atelectasis. Pleural effusions are slightly increased compared with 05/20/2016. No pneumothorax. Central and peripheral airways are patent. Mediastinum: Heart size is normal, without pericardial effusion. No mediastinal or hilar adenopathy. Thoracic aorta is normal in caliber and enhancement. Esophagus is normal in caliber, without hiatal hernia. Bones and chest wall: No suspicious bony lesions. Ribs and thoracic spine appear intact throughout. Thyroid gland is normal. No axillary or supraclavicular adenopathy. There are surgical angelique in the left anterior chest. Abdomen: Visualized upper abdominal solid organs appear normal in the early arterial phase of enhancement. IMPRESSION: 1. No evidence for central pulmonary embolism. 2. Mild increase in bilateral small to moderate pleural effusions. Dictated by: Aden Amador M.D. on 06/05/2016 at 21:29 Approved by: Aden Amador M.D. on 06/05/2016 at 21:40 Date of Service: 06/05/16 193 PROCEDURE: X-RAY CHEST ONE VIEW, PORTABLE INDICATIONS: SHORT OF BREATH TECHNIQUE: One view of the chest was acquired. COMPARISON: [facility], , XR CHEST 2VW, 06/01/2016, 8:23. FINDINGS: Surgical changes and devices: There are surgical angelique in the left upper thorax. A right sided cardiac pacemaker is seen with the thin expected position. There is a left PICC with the tip in SVC. Lungs and pleura: Mild diffuse interstitial prominence. No pleural effusions or pneumothorax. Mediastinum: Mediastinal contours appear normal. Heart size is normal. Bones and chest wall: No suspicious bony lesions. Overlying soft tissues appear unremarkable. IMPRESSION: Mild diffuse interstitial prominence suggests mild pulmonary congestion. Dictated by: Aden Amador M.D. on 06/05/2016 at 20:05 Approved by: Aden Amador M.D. on 06/05/2016 at 20:07 Assessment & Plan #Leukocytosis with left shift, acute, present on admission, active - WBCs at 11.0, with 81.1% PMNs, - He does not currently meet sepsis criteria. Patient has elevated respiratory rate of 30 otherwise is afebrile, blood pressure is not meet criteria, but blood cell count does not meet criteria, - Patient does not meet Q Harper criteria as she does not have a BP less than 100 mmHg, does not have altered mental status, however she does have a elevated respiratory rate, herself score is less than 2 which is low risk for organ dysfunction. - Temperature 36.3, pulse 131, respiratory rate 30, blood pressure 173/95 with a map of 121, 16% in room air. - In the ED patient received 2 L IV bolus of saline. - Hemogram showed elevated WBCs at 11.0, with 81.1% PMNs, hemoglobin 10.1, hematocrit 33.8, platelets 348, MCH 25.9 MCHC 29.9, RDW 15.5 - Chemistry panel: Showed carbon dioxide 16.0, glucose 260, lactic acid 2.3 with repeat lactic acid 1.8, magnesium 1.2 low, proBNP 3919, opium and 2.8, hCG was negative, otherwise normal cancer panel. - PT 20.1, INR 125 - UA significant for pH of 5.5, glucose 250, urine ketones 80, moderate blood, moderate leukocyte esterase, 6-10 white blood cells per high-power field, amorphous urate crystals, moderate bacteria. - Urine culture are pending - Blood cultures ordered and pending - CT abdomen showed: 1. A small abscess cavity anterolateral to the right kidney , which is unchanged in size compared to 05/23/2016. 2. A trace amount of free fluid. 3. Bilateral itryv-wu-mgvgfcik pleural effusions, slightly increased. - CT angiogram chest: 1. No evidence for central pulmonary embolism. 2. Mild increase in bilateral small to moderate pleural effusions. - CXR: Mild diffuse interstitial prominence suggests mild pulmonary congestion. - We will restart IV cefazolin 2 g IV every 8 - We will restart daptomycin 700 mg IV every 24 - Patient needs Infectious disease consult in the morning # Diabetic ketoacidosis, and a known type I diabetic, present on admission, active - Urine ketones 80 - Glucose greater than 300 - Repeat serum BMP stat - We will start IV fluids at a rate of 125 mL per hour normal saline - Stat serum ketones - Anion gap of 24 #Hypoglycemia in a known type I diabetic, present on admission, active - Glucose 260 - Low-dose correctional scale insulin while in-house - IV fluids as above # Acute lactic acidosis, present on admission, resolved - Lactic acid 2.3 and 1.8 on repeat - A anion gap 24 - IV fluids as above # Generalized deconditioning, as on admission, active - PT consult ordered # Diarrhea, acute onset, present on admission, active - Patient had acute onset artery diarrhea with multiple episodes and so today, and in the context of multiple antibiotics - C. difficile PCR ordered and pending # Right perinephric abscess, present on admission, active - He was treated on recent admission prior to discharge on 06/04/2016 for MSSA and 3 species of coagulase-negative staph on prior admits blood culture. - Patient was seen by Dr. Ambrose who recommended high dose cefazolin through June 17 and daptomycin through June 24. Patient was to follow-up with Dr. Ambrose on June 12. As as an outpatient - We will continue previously dosed cefazolin 2 g IV every 8 from previous hospitalization. - We will continue previously dosed daptomycin 700 mg IV every 24 previous hospitalization. # Bilateral pleural effusions as seen on chest CT angiogram, present on admission, active # Hypomagnesemia, present remission, active - Magnesium level 1.2 - We will repleat magnesium # Normocytic hypochromic anemia, chronicity unknown, present on admission, active # Tachycardia # Tachypnea Chronic Problems Type I diabetes Graves' disease 1991 PTSD/anxiety History of medication noncompliance SVT Heart Block Anxiety Uterine fibroids Hiatal hernia Renal abscess Reports: Diabetes mellitus History pacemaker secondary to heart block, now status post pacemaker placement secondary to infected component Disposition: Admitted to in patient service with expected length of stay greater than 2 days, secondary to severity of presenting symptoms, treatment plan, complexity of clinical work up, and risk of adverse events. CODE STATUS: Full code PCP: Arielle Aguilar DO DVT PE prophylaxis: Enoxaparin Pain Evaluation: Adequate Pain Control VTE Prophylaxis: Sub-Q Enoxaparin Resuscitation Status: CPR: Attempt Resuscitation Attending Statement The patient was seen and examined together with Dr. Diego on06/06/2016and I have added additional information to the note above. -- hyperglycemia -- elevated anion gap metabolic acidosis given insulin, iv fluids in er. ketones small metabolic acidosis improving without insulin drip. repeat labs. if still abnormal will need to start dka protocol, insulin infusion. Genaro Diego DO Jun 05, 2016 23:33 Vamsi Garcias MD Jun 06, 2016 05:52
[2016-06-06] VITALS (9 sets, daily range): BP systolic 136–190; BP diastolic 72–101; PULSE 111–129; RESP 16–24; O2SAT 95–99
[2016-06-06] MEDS ORDERED: 0.9% Sodium Chloride 1,000 ML IV SCH (00:42)
[2016-06-06] MEDS ORDERED: Alum-Mag Hydrox-Simeth 30 mL Suspension PO PRN (00:45)
[2016-06-06] MEDS ORDERED: Glucose 40% Oral Gel 15 Gm Tube PO PRN (01:20)
[2016-06-06 01:24] LABS: Phosphorus 2.4 mg/dL (2.5-4.9)
[2016-06-06] MEDS: 0.9% Sodium Chloride 1,000 ML IV SCH ×4 (01:53→23:54)
[2016-06-06] MEDS: HYDROcodone-APAP 5-325 mg Tablet PO PRN ×4 (01:55→23:53)
[2016-06-06] MEDS: CeFAZolin Inj 2 GM in Dextrose 5%-Pha MIX 50 ML IV SCH ×3 (02:33→18:00)
[2016-06-06] MEDS ORDERED: 0.9% Sodium Chloride 1,000 ML IV ONE (03:30)
[2016-06-06] MEDS ORDERED: HYDROmorphone 1 mg/mL Inj IVPUSH ONE (03:35)
[2016-06-06 04:06] LABS: APPEARANCE,URINE HAZY (CLEAR,HAZY); COLOR,URINE STRAW (YELLOW); OCCULT BLOOD,URINE SMALL (NEGATIVE); PH,URINE 5.5 (5.0-8.0); UROBILINOGEN,URINE NORMAL (NORMAL); YEAST,URINE FEW (NONE SEEN)
[2016-06-06] MEDS: Ondansetron 2 mg/mL 2 mL Inj IVPUSH PRN ×3 (04:10→23:55)
[2016-06-06] MEDS ORDERED: Potassium Chloride Oral 20 mEq SR Tab(K 3 - 3.7 & Creat < 2) PO ONE (04:50)
[2016-06-06] MEDS ORDERED: Mag Sulf 4 Gm/100 mL IV Premix (Mag < 1.6 & Creat < 2) IV ONE (05:00)
[2016-06-06 07:06] LABS: BASOPHILS % (AUTO) 0.7 % (0-3); EOSINOPHILS % (AUTO) 5.2 % (0-5); MONOCYTES % (AUTO) 10.4 % (4-12); Mean Corpuscular Hemoglobin 25.8 pg (27.0-35.0); Mean Corpuscular Volume 87.7 fL (81-100); NEUTROPHILS % (AUTO) 64.7 % (40-74); Platelet Count 306 bil/L (150-400)
--- NOTE | 2016-06-06 07:28 | NUR ---
Admit/Pain/Tele/Skin/GI Pt admitted to room 2024, A&O and appeared to be in no distress. Pt able to do admission questions, med rec was reviewed prior to pt arriving on floor. Pt c/o 5/10 pain at incision sites where both old pacemaker was removed and new one was placed. Incision sites look clean and w/out drainage. Pt states this pain is continual and unchanged since she was last admitted, was prescribed tramadol for home pain management but was concerned about an allergy. Pt given ordered [place] but this was not effective. MD notified and ordered one time dose of IV Dilaudid which brought pain down to 2/10. Tele looks to be 100% VPaced with rate in 120s, copy of tele strip shown to MD when he arrived to see pt. BP elevated but decreased when reassessed. Skin in groin area and under abdominal folds noted to be red/rashy, area was cleaned and dried. Day RN aware. Pt had no BM this shift but did have some nausea which resolved with Zofran. Bedside blood sugar 170s.
[2016-06-06] MEDS: Insulin LISPRO 300 Unit/3 mL Inj SUBQ SCH ×4 (08:00→20:59)
[2016-06-06] MEDS: DAPTOmycin Inj 700 MG in 0.9% Sodium Chloride 50 ML IV SCH (08:29)
[2016-06-06] MEDS ORDERED: Sodium Chloride LOK Flush 10 mL Syringe IVFLUSH PRN ×2 (10:25)
--- NOTE | 2016-06-06 11:29 | PROG NOTE ---
[address] [address] PROGRESS NOTE PATIENT: KAYLEE TURNER : 1980 MR#: [id number] ADMIT: 06/05/2016 JOB ID: [id number] DATE: 06/06/2016 INFECTIOUS DISEASE FOLLOW UP NOTE: REASON FOR FOLLOW UP: MSSA bacteremia with perinephric abscess followed by a coag-negative staph bacteremia in a patient with ongoing issues with recently placed pacer. INTERVAL HISTORY: Recall this is an extremely complicated 36-year-old woman who a couple months ago underwent a permanent pacer placement for a complete heart block. She then developed a bacteremic MSSA perinephric abscess which was diagnosed on or about May 17 and at the [facility] in [place]. At that time, she had positive blood cultures for MSSA as well as a perinephric abscess that was drained and was found to have MSSA. She was transferred to [facility] and because of concerns that her pacer system might be infected, though we could not prove that with AJIT, her left chest pacer and leads were removed uneventfully. We then waited a period of time to make sure there were all negative blood cultures and a new right pacer was implanted. During the interval when she was receiving IV antibiotics, and we were watching her, a set of blood cultures grew coag-negative staph, and so daptomycin was added to the cefazolin she was already receiving for the MSSA bacteremia even though we believe that the coag-negative staph in the one set of blood cultures was a contaminant as it was only present in two out of more than a dozen blood cultures. In any event, the patient eventually had her pacer reimplanted and was sent home on June 04. At that time, our plan was to continue the cefazolin through June 17 and the dapto through June 24 to ensure really comprehensive coverage for both MSSA and coag-negative Staph. We also plan to follow up closely on her small residual perinephric abscess cavity. Unfortunately, the patient was at home less than two days when she developed profound weakness, to the point she fell, in association with lightheadedness, generalized malaise, nausea and several hours of diarrhea yesterday. Interesting that diarrhea has come and gone and she no longer has any of it, but that was one of the principal complaints yesterday and may have been tied in in some way to some of the other problems. She was seen and admitted last night through the emergency department again and underwent a great deal of imaging and culturing. This morning I see here back on the PCC narayanan. The patient reports she is starting to feel somewhat better though still feels extremely weak. She has had absolutely no fevers, chills or headache. She denies any sore throat, cough, chest pain or shortness of breath. She has pain in both her left chest pacer explantation site as well as her right chest reimplantation site but this sounds as if it is fairly typical for these sorts of surgery and it is not pain out of control or out of proportion. She has nausea and anorexia but no vomiting. Her diarrhea is completely gone. She denies myalgias or arthralgias, but notes she just feels very weak. PHYSICAL EXAMINATION: Reveals an afebrile woman. Temperature 36.5, pulse 111, respiratory rate 24, blood pressure 152/86. She is saturating well on room air and in no acute distress. The mental status is clear. Oral cavity without thrush, pharyngitis or buccal ulcers. Neck is supple. Lungs fairly clear anteriorly. Cardiac tones without new murmur as compared to prior examination and regular rate and rhythm is noted. Both pacer operation sites appear benign. They are both still stapled and the one on the right actually has Steri-Strips as well, but neither appears inflamed or infected. Her PICC line likewise in the left upper extremity likewise appears benign. Her abdomen is somewhat obese, soft and nontender. No skin rash is present. LABORATORIES: Include white count 7300. It was 11,000 yesterday. The differential is really normal except 5% eosinophils. Creatinine 0.74. INR interestingly is 1.85. That had been more normal when she left. Urinalysis 6-10 white cells, 3-10 reds. Urine culture done yesterday is negative so far. Follow up blood cultures done yesterday are negative as well. IMAGING: A great deal of imaging has been done. The chest x-ray shows mild interstitial prominence without focal infiltrate. A CT of the chest shows no pulmonary embolism, small pleural effusions and bibasilar atelectasis. The pleural effusions might be slightly bigger than they were on May 20. An abdominal CT shows a small abscess measuring 1 x 2 cm which is unchanged in size from a CT done about 10 days ago. IMPRESSION: This is an extremely difficult and challenging case of a woman with complete heart block, who had a pacer installed and then developed an MSSA bacteremia of unknown source which seeded the perinephric space. Because of concerns that her pacer system might have been infected, it was removed, and after a period of time during which blood cultures no longer grew MSSA, a new pacer was installed. At the time of discharge on the , the patient appeared reasonably well but when she got home she rapidly developed short-lived but intense period of diarrhea associated with nausea, lightheadedness and profound weakness to the point she could not even safely ambulate. Note that this patient lives with her father who has a variety of medical problems and is on dialysis. At this point, I see no evidence for recrudescent or new infection though this is, of course, always a worry. The patient has a very small perinephric abscess which is being treated with a very aggressive medical therapy even as we also treat her for what may have been a pacer infection. RECOMMENDATIONS: 1. Will continue with IV cefazolin through June 17. 2. Will continue with IV dapto through June 24. 3. She already has a scheduled followup with me, and at that time, one of things we are going to review is whether or not additional imaging will be needed to make sure the perinephric abscess has completely resolved. 4. I will be out of the state the next three days over the three day weekend and be back June 10. Please do not hesitate to call me about this or any other patient. LYNN
--- NOTE | 2016-06-06 13:19 | NUR ---
Social Work: Initial Assessment D: Per EMR review, pt is a 36 year old female admitted for tachycardia, dehydration. [facility] [place]; pt has no LTC insurance or va benefits. PCP is Arielle Aguilar DO. NOK is Eddi Dan, father, . Advanced directives not complete-info provided. Readmit score not entered at this time. Pt was discharged home on 06/04/16 with [facility] for IV ABX. SHOT DROPPER met with pt at bedside; sw role explained and contact info provided. See initial assessment. Pt is from [place]. She is I at baseline and lives with her father. Pt assists her father with getting to appointments and driving. Pt confirms that she was discharged with [facility] and that she was successfully able to open for services. She states that she has been very weak since discharge. A PT evaluation has been ordered however is not completed due to pain; pt has been SBA with ambulation in her room. SHOT DROPPER discussed discharge options with her including HH. HH CHOICE LIST PROVIDED. She has never had HH or SNF in the past. She has no preference for HH companies. t/c to Yany Pennington with [facility] to notify of pt's admission; access provided. A: Pt who lives with family at home. P: Anticipate pt to likely discharge home with resumed [facility] for IV ABX and possible HH; SHOT DROPPER to continue to follow. DAYLIN Harris Addendum: 06/06/16 at 1327 by SHERIN BURNETT Amended: Links added.
[2016-06-06] MEDS ORDERED: HYDROmorphone 0.5 mg/0.5 mL iSecure Syringe IVPUSH ONE (13:35)
--- NOTE | 2016-06-06 16:13 | PCM.PNMED ---
Subjective Date of Service Jun 06, 2016 Subjective Patient resting in bed, still complains of allover pain. Long discussion about pain medications. She does not normally take prescription pain medications at home but has been on Dilaudid for 3 weeks prior to discharge she had been switched to morphine and then given a prescription for Ultram going home. Following discharge the patient started having symptoms that brought her into the emergency room including diarrhea and dizziness and weakness. Diarrhea has resolved, but her pain is still significant. She did receive a milligram of Dilaudid in the emergency room and again overnight. Exam Vital Signs Vital Sign - Last Date Time Temp Pulse Resp B/P Pulse Ox O2 Delivery O2 Flow Rate FiO2 06/06/16 11:48 36.5 114 16 154/94 97 Room Air Intake and Output 06/05/16 06/05/16 06/06/16 Cumulative From/Thru 15:00 23:00 07:00 06/05/16 19:18 - 06/06/16 05:55 Intake Total 1200 ml 350 ml 1550 ml Output Total 650 ml 650 ml Balance 1200 ml -300 ml 900 ml Intake Oral 350 ml 350 ml IV Total 1200 ml 1200 ml Output Urine Total 650 ml 650 ml # Bowel Movements 0 0 Exam General: Alert, Oriented X3, NAD Head: Normocephalic, atraumatic Eyes: TOMMY, EOMI, no scleral Icterus Chest: clear to auscultation B/L, no wheezing rales or rhonchi Heart: Tachycardic, regular rhythm. Normal S1, S2, no murmurs noted Abdomen: soft, non-tender. Bowel sounds are normoactive. No guarding or rebound. Extremities: no cyanosis, clubbing or edema. IVs and Medications Medications Reviewed: Medications were reviewed in detail Lab and Diagnostics Result Diagram: 06/06/16 0640 06/06/16 1015 X-Rays, CTs and MRIs Date of Service: 06/05/162047 PROCEDURE: CT ABDOMEN AND PELVIS WITH CONTRAST INDICATIONS: tachycardia, pleuritic CP TECHNIQUE: After the administration of intravenous contrast, 5 mm thick sections acquired from the diaphragm to the symphysis. 5 mm coronal and sagittal reformats were acquired. For radiation dose reduction, the following was used: automated exposure control, adjustment of mA and/or kV according to patient size. COMPARISON: [facility], CT, ABDOMEN WITHOUT CONTRAST, 05/20/2016, 7:39. [facility], CT, CT ABD W CON, 05/28/2016, 13:55. FINDINGS: Image quality: Excellent. ABDOMEN: Lung bases: There are small to moderate bilateral pleural effusions, increased compared to the last exam. Basilar compression atelectasis. Heart size is normal. Solid organs: Liver and spleen are normal in size and enhancement. Gallbladder is surgically absent. Biliary system is non dilated. Pancreas enhances normally. No adrenal nodules. Kidneys demonstrate normal size and enhancement, without hydronephrosis. Peritoneum and bowel: A small rim enhancing fluid collection consistent with abscess is seen in the anterior lateral aspect of the right kidney measuring 1.3 x 2.2 cm, unchanged in size. There is a trace amount of free fluid near the inferior origin of liver and in the right perinephric space. Bowel loops demonstrate normal wall thickness and caliber. No free air. Nodes and vessels: No retroperitoneal or mesenteric adenopathy by size criteria. Aorta and inferior vena cava are normal in size. Miscellaneous: No ventral hernias. There is mild bodywear edema. PELVIS: Genitourinary: Bladder wall thickness is normal. Uterus is unremarkable. The left ovary is prominent measuring 3.2 x 3.8 cm. The right ovary is not visualized. Miscellaneous: No inguinal hernias or adenopathy. Bones: No suspicious bony lesions. No vertebral body compression fractures. IMPRESSION: 1. A small abscess cavity anterolateral to the right kidney, which is unchanged in size compared to 05/23/2016. 2. A trace amount of free fluid. 3. Bilateral ubgoa-rg-scpedifc pleural effusions, slightly increased. Dictated by: Aden Amador M.D. on 06/05/2016 at 21:40 Approved by: Aden Amador M.D. on 06/05/2016 at 21:48 Date of Service: 06/05/16 2048 PROCEDURE: CT ANGIO CHEST PULMONARY EMBOLISM INDICATIONS: tachycardia, pleuritic CP TECHNIQUE: After the administration of intravenous contrast, 2 mm thick sections acquired from the pulmonary apices to the posterior costophrenic angles. 3-dimensional maximum intensity projection (MIP) coronal and sagittal reformats were then acquired through the thorax. For radiation dose reduction, the following was used: automated exposure control, adjustment of mA and/or kV according to patient size. COMPARISON: [facility], CR, XR CHEST 2VW, 05/28/2016, 6:40. [facility], CT, CT ABD W CON, 05/28/2016, 13:55. [facility], CR , XR CHEST 2VW, 06/01/2016, 8:23. [facility], CR, XR CHEST 1VW ( PORTABLE), 06/05/2016, 19:35. FINDINGS: Image quality: Excellent. Pulmonary arteries: Pulmonary arteries are normal in size, and demonstrate no intraluminal filling defects to suggest central pulmonary embolism. Lungs and pleura: There are bilateral bmegw-[id number]-vcusvghh pleural effusions and bibasilar compression atelectasis. Pleural effusions are slightly increased compared with 05/20/2016. No pneumothorax. Central and peripheral airways are patent. Mediastinum: Heart size is normal, without pericardial effusion. No mediastinal or hilar adenopathy. Thoracic aorta is normal in caliber and enhancement. Esophagus is normal in caliber, without hiatal hernia. Bones and chest wall: No suspicious bony lesions. Ribs and thoracic spine appear intact throughout. Thyroid gland is normal. No axillary or supraclavicular adenopathy. There are surgical angelique in the left anterior chest. Abdomen: Visualized upper abdominal solid organs appear normal in the early arterial phase of enhancement. IMPRESSION: 1. No evidence for central pulmonary embolism. 2. Mild increase in bilateral small to moderate pleural effusions. Dictated by: Aden Amador M.D. on 06/05/2016 at 21:29 Approved by: Aden Amador M.D. on 06/05/2016 at 21:40 Date of Service: 06/05/161929 PROCEDURE: X-RAY CHEST ONE VIEW, PORTABLE INDICATIONS: SHORT OF BREATH TECHNIQUE: One view of the chest was acquired. COMPARISON: [facility], CR, XR CHEST 2VW, 06/01/2016, 8:23. FINDINGS: Surgical changes and devices: There are surgical angelique in the left upper thorax. A right sided cardiac pacemaker is seen with the thin expected position. There is a left PICC with the tip in SVC. Lungs and pleura: Mild diffuse interstitial prominence. No pleural effusions or pneumothorax. Mediastinum: Mediastinal contours appear normal. Heart size is normal. Bones and chest wall: No suspicious bony lesions. Overlying soft tissues appear unremarkable. IMPRESSION: Mild diffuse interstitial prominence suggests mild pulmonary congestion. Dictated by: Aden Amador M.D. on 06/05/2016 at 20:05 Approved by: Aden Amador M.D. on 06/05/2016 at 20:07 Assessment & Plan #Opiate dependence: -Vague symptoms of all over pain, lightheadedness and diarrhea CONSISTENT with opiate withdrawal. -I had a long discussion with this patient about opiate withdrawal and dependence. She does not wish to be opiate dependent and is agreeable to pulling back her pain medications as able with the goal of not having any narcotic need at all. -I will give her a half milligram dose of IV Dilaudid now, then oral medication going forward. -Patient has been on IV Dilaudid for 3 weeks, rapid discontinuation of opiates prior to discharge from previous hospitalization #Leukocytosis with left shift, acute, present on admission, active -Follow -No obvious sign of new or worsening infection, continue present antibiotics. - IV cefazolin 2 g IV every 8 - daptomycin 700 mg IV every 24 -Infectious disease has been consulted. #Coagulopathy -INR this morning was 1.85 -Unknown significance, no history of alcoholism or liver disease. She is not on any anticoagulants -Follow INR, consider hematology consultation if indicated. # Diabetic ketoacidosis, and a known type I diabetic, present on admission, active -Continue sliding scale insulin #Hypoglycemia in a known type I diabetic, present on admission, active - Glucose 260 - Low-dose correctional scale insulin while in-house - IV fluids as above # Acute lactic acidosis, present on admission, resolved - Lactic acid 2.3 and 1.8 on repeat - A anion gap 24 - IV fluids as above # Generalized deconditioning, as on admission, active - PT consult ordered # Diarrhea, acute onset, present on admission, active -Likely secondary to opiate withdrawal. Improved today. C. difficile pending # Right perinephric abscess, present on admission, active - He was treated on recent admission prior to discharge on 06/04/2016 for MSSA and 3 species of coagulase-negative staph on prior admits blood culture. - Patient was seen by Dr. Ambrose who recommended high dose cefazolin through June 17 and daptomycin through June 24. Patient was to follow-up with Dr. Ambrose on June 12. As as an outpatient - We will continue previously dosed cefazolin 2 g IV every 8 from previous hospitalization. - We will continue previously dosed daptomycin 700 mg IV every 24 previous hospitalization. # Bilateral pleural effusions as seen on chest CT angiogram, present on admission, active # Hypomagnesemia, present remission, active - Magnesium level 1.2 -Replacing # Normocytic hypochromic anemia, chronicity unknown, present on admission, active # Tachycardia: -Interrogate pacer Chronic Problems Type I diabetes Graves' disease 1991 PTSD/anxiety History of medication noncompliance SVT Heart Block Anxiety Uterine fibroids Hiatal hernia Renal abscess Reports: Diabetes mellitus History pacemaker secondary to heart block, now status post pacemaker placement secondary to infected component CODE STATUS: Full code PCP: Arielle Aguilar DO DVT PE prophylaxis: Enoxaparin VTE Prophylaxis: Sub-Q Enoxaparin Resuscitation Status: CPR: Attempt Resuscitation Lio Beal DO Jun 06, 2016 16:13
--- NOTE | 2016-06-06 18:46 | NUR ---
Pain/Nausea pt reporting moderate to severe pain of pacer sites. PRN norco given per md order with no effectiveness. pt reported nausea relieved by zofran. Discussed pain management with MD. [place] order adjusted. will continue to monitor.
[2016-06-06] MEDS: HYDROmorphone 0.5 mg/0.5 mL iSecure Syringe IVPUSH PRN (20:24)
[2016-06-06] MEDS: MeTOProlol XL 50 mg ER24 Tablet PO SCH (20:54)
[2016-06-06] MEDS: LORazepam 1 mg Tablet PO PRN (21:00)
--- NOTE | 2016-06-06 21:37 | NUR ---
Uncontrolled pain: upon initial assessment pt found to be hurled over in pain. pt states the pain is "greater then 10/10" and is "everywhere". Discussed with pt plan for pain management, as norco was increased to 2 tabs q4 hrs with the intent to d/c IV narcotics. pt in hysterics states " i can not wait another hour for these meds to kick in, i am not strong enough for this!" Pt accepting of PO [place] but still appears very distressed. HR noted to be in the 130s. BP 190s/80s. Upon further investigation it was apparent that majority of pts home medications had not been continued. Dr. Garcias paged and made aware of pt current uncontrolled pain, HR, and BP- along with pt list of medications that had not been continued. Order received for 1mg IVP Dilaudid Q4 hrs PRN pain. MD aware that day team is trying to stay clear of IV narcotics. one dose given at this time in attempts to bridge pt to PO pain meds. In addition MD restarted pt home dose of Metoprolol and Ativan. Dr. Garcias states the remainder of the medications he will be up to day team to continue. Addendum: 06/07/16 at 0221 by ESEQUIEL BRINK RN 0000 pt assessed for pain. Pt found to be resting in bed comfortably watching TV on tablet. PRN [place] ( 2 tabs given) for 5/10 generalized (tolerable) pain. noted shorty after to be resting comfortably. 0145 light in room noted to be on- upon walking into the room pt stated crying in hysterics " I cant do this, i just want to end this!" Pt states that she has been pretending to rest but she has "really been watching medical shows trying to find ways to harm myself". PRN Po Ativan given. Pt continues to ask for Dilaudid. PRN Dilaudid given for 10/10 generalized pain. Pt currently resting with eyes closed. she verbalized no current desire to harm herself, and will ring for RN if those feelings return. Room assessed for harmful objects, bullard curtain open for observation- frequent rounding.
[2016-06-07] VITALS (7 sets, daily range): BP systolic 151–166; BP diastolic 92–108; PULSE 104–113; RESP 20–24; O2SAT 92–95
[2016-06-07] MEDS: LORazepam 1 mg Tablet PO PRN ×4 (01:49→21:16)
[2016-06-07] MEDS: HYDROmorphone 0.5 mg/0.5 mL iSecure Syringe IVPUSH PRN ×2 (02:02→07:52)
[2016-06-07] MEDS: CeFAZolin Inj 2 GM in Dextrose 5%-Pha MIX 50 ML IV SCH ×3 (02:04→17:33)
[2016-06-07 03:46] LABS: Mean Corpuscular Hemoglobin 25.7 pg (27.0-35.0)
[2016-06-07 04:04] LABS: INR 1.73 ratio
[2016-06-07] MEDS: HYDROcodone-APAP 5-325 mg Tablet PO PRN ×2 (04:15→10:14)
[2016-06-07] MEDS: MeTOProlol XL 50 mg ER24 Tablet PO SCH ×2 (07:57→20:29)
[2016-06-07] MEDS: 0.9% Sodium Chloride 1,000 ML IV SCH ×2 (08:01→21:20)
[2016-06-07] MEDS: Insulin LISPRO 300 Unit/3 mL Inj SUBQ SCH ×4 (08:05→20:33)
[2016-06-07] MEDS: DAPTOmycin Inj 700 MG in 0.9% Sodium Chloride 50 ML IV SCH (09:07)
--- NOTE | 2016-06-07 10:00 | NUR ---
Pain/Psych pt continues to have moderate to severe pain. Pain management schedule discussed between RN and nurse for po pain meds and anti-anxiety meds. Pt states "I feel bad for having this feelings, I just can't do this." pt tearful. Discussed with MD patient's condition and need for Home meds. will continue to monitor.
--- NOTE | 2016-06-07 10:14 | NUR ---
Pain pt reported 5/10 pain of pacer incision sites and mid chest pt states related to breathing too hard. PRN [place] given per MD order with goal pain rating of about 2/10. will continue to monitor.
[2016-06-07] MEDS: Ondansetron 2 mg/mL 2 mL Inj IVPUSH PRN (11:29)
[2016-06-07] MEDS ORDERED: HYDROmorphone 0.5 mg/0.5 mL iSecure Syringe IVPUSH PRN (12:20)
[2016-06-07] MEDS: Venlafaxine XR 75 mg ER24 Capsule PO SCH (12:27)
--- NOTE | 2016-06-07 14:16 | NUR ---
Social Work: Continued Discharge Planning D: Pt discussed in am rounds. Per RN, overnight pt endorsing suicidal and self-harm ideation. Pt has been endorsing 10/10 pain and states that her suicidal ideation is a result of this pain. Per RN, pt was exploring ways to inject air into her PICC line. SUPERVISOR FISH HATCHERY requested pt be placed on a 1:1 until suicidal ideation and pain is resolved. Pt has a history of anxiety and PTSD and is on antipsychotic medications at home. These medications had not been started as of this morning. MD will restart these. Pt has no PMH of suicide attempts. Per [facility] MIS check, pt has no history of any voluntary or involuntary psychiatric treatment; pt has no history with outpatient providers. SUPERVISOR FISH HATCHERY attempted to meet with the pt at bedside. Pt declined to speak with SUPERVISOR FISH HATCHERY and states that she is "very tired" and "just want to sleep." SUPERVISOR FISH HATCHERY agreed and informed pt that we would return prior to discharge to discuss further discharge planning and her thoughts of self-harm and suicide. Pt agreed. A: Pt who is I at baseline and lives with family. P: Anticipate pt to discharge home via POV pending SUPERVISOR FISH HATCHERY Mental Health Evaluation; SUPERVISOR FISH HATCHERY to continue to follow. DAYLIN Harris
--- NOTE | 2016-06-07 14:33 | PCM.PNMED ---
Subjective Date of Service Jun 07, 2016 Subjective The patient states that she had a rough night, I discussed with her and staff regarding the events. She has had ongoing pain and withdrawal symptoms. She received IV Dilaudid by the night hospitalist team to alleviate her pain/ distress/panic attack. I had another long discussion with the patient about opiate withdrawal. The patient is in agreement that she does not want to be on opiates long-term but is tearful and afraid of going through withdrawals. Some of her home medications, initially held, have been restarted. The patient has had abdominal cramping, muscle spasms, nausea vomiting. No diarrhea currently. Exam Vital Signs Vital Sign - Last Date Time Temp Pulse Resp B/P Pulse Ox O2 Delivery O2 Flow Rate FiO2 06/07/16 12:13 36.3 110 22 166/105 93 Room Air Intake and Output 06/06/16 06/06/16 06/07/16 Cumulative From/Thru 15:00 23:00 07:00 06/05/16 19:18 - 06/07/16 05:09 Intake Total 1650 ml 2105 ml 2283 ml 7588 ml Output Total 1200 ml 1100 ml 2950 ml Balance 1650 ml 905 ml 1183 ml 4638 ml Intake Oral 1040 ml 737 ml 2127 ml IV Total 1650 ml 1065 ml 1546 ml 5461 ml Output Urine Total 1200 ml 1100 ml 2950 ml # Bowel Movements 0 0 Exam General: Alert, Oriented X3, mild distress, anxious Head: Normocephalic, atraumatic Eyes: TMOMY, EOMI, no scleral Icterus Chest: clear to auscultation B/L, no wheezing rales or rhonchi Heart: Tachycardic Normal S1, S2, no murmurs noted Abdomen: soft, mild generalized tenderness to palpation. Bowel sounds are slightly hypoactive. No guarding or rebound. Extremities: no cyanosis, clubbing or edema. IVs and Medications Medications Reviewed: Medications were reviewed in detail Lab and Diagnostics Result Diagram: 06/07/1632906/07/16329 X-Rays, CTs and MRIs Date of Service: 06/05/162047 PROCEDURE: CT ABDOMEN AND PELVIS WITH CONTRAST INDICATIONS: tachycardia, pleuritic CP TECHNIQUE: After the administration of intravenous contrast, 5 mm thick sections acquired from the diaphragm to the symphysis. 5 mm coronal and sagittal reformats were acquired. For radiation dose reduction, the following was used: automated exposure control, adjustment of mA and/or kV according to patient size. COMPARISON: [facility], CT, ABDOMEN WITHOUT CONTRAST, 05/20/2016, 7:39. [facility], CT, CT ABD W CON, 05/28/2016, 13:55. FINDINGS: Image quality: Excellent. ABDOMEN: Lung bases: There are small to moderate bilateral pleural effusions, increased compared to the last exam. Basilar compression atelectasis. Heart size is normal. Solid organs: Liver and spleen are normal in size and enhancement. Gallbladder is surgically absent. Biliary system is non dilated. Pancreas enhances normally. No adrenal nodules. Kidneys demonstrate normal size and enhancement, without hydronephrosis. Peritoneum and bowel: A small rim enhancing fluid collection consistent with abscess is seen in the anterior lateral aspect of the right kidney measuring 1.3 x 2.2 cm, unchanged in size. There is a trace amount of free fluid near the inferior origin of liver and in the right perinephric space. Bowel loops demonstrate normal wall thickness and caliber. No free air. Nodes and vessels: No retroperitoneal or mesenteric adenopathy by size criteria. Aorta and inferior vena cava are normal in size. Miscellaneous: No ventral hernias. There is mild bodywear edema. PELVIS: Genitourinary: Bladder wall thickness is normal. Uterus is unremarkable. The left ovary is prominent measuring 3.2 x 3.8 cm. The right ovary is not visualized. Miscellaneous: No inguinal hernias or adenopathy. Bones: No suspicious bony lesions. No vertebral body compression fractures. IMPRESSION: 1. A small abscess cavity anterolateral to the right kidney, which is unchanged in size compared to 05/23/2016. 2. A trace amount of free fluid. 3. Bilateral [id number] pleural effusions, slightly increased. Dictated by: Aden Amador M.D. on 06/05/2016 at 21:40 Approved by: Aden Amador M.D. on 06/05/2016 at 21:48 Date of Service: 06/05/16 2048 PROCEDURE: CT ANGIO CHEST PULMONARY EMBOLISM INDICATIONS: tachycardia, pleuritic CP TECHNIQUE: After the administration of intravenous contrast, 2 mm thick sections acquired from the pulmonary apices to the posterior costophrenic angles. 3-dimensional maximum intensity projection (MIP) coronal and sagittal reformats were then acquired through the thorax. For radiation dose reduction, the following was used: automated exposure control, adjustment of mA and/or kV according to patient size. COMPARISON: [facility], CR, XR CHEST 2VW, 05/28/2016, 6:40. [facility], CT, CT ABD W CON, 05/28/2016, 13:55. [facility], CR , XR CHEST 2VW, 06/01/2016, 8:23. [facility], CR, XR CHEST 1VW ( PORTABLE), 06/05/2016, 19:35. FINDINGS: Image quality: Excellent. Pulmonary arteries: Pulmonary arteries are normal in size, and demonstrate no intraluminal filling defects to suggest central pulmonary embolism. Lungs and pleura: There are bilateral [id number] pleural effusions and bibasilar compression atelectasis. Pleural effusions are slightly increased compared with 05/20/2016. No pneumothorax. Central and peripheral airways are patent. Mediastinum: Heart size is normal, without pericardial effusion. No mediastinal or hilar adenopathy. Thoracic aorta is normal in caliber and enhancement. Esophagus is normal in caliber, without hiatal hernia. Bones and chest wall: No suspicious bony lesions. Ribs and thoracic spine appear intact throughout. Thyroid gland is normal. No axillary or supraclavicular adenopathy. There are surgical angelique in the left anterior chest. Abdomen: Visualized upper abdominal solid organs appear normal in the early arterial phase of enhancement. IMPRESSION: 1. No evidence for central pulmonary embolism. 2. Mild increase in bilateral small to moderate pleural effusions. Dictated by: Aden Amador M.D. on 06/05/2016 at 21:29 Approved by: Aden Amador M.D. on 06/05/2016 at 21:40 Date of Service: 06/05/161929 PROCEDURE: X-RAY CHEST ONE VIEW, PORTABLE INDICATIONS: SHORT OF BREATH TECHNIQUE: One view of the chest was acquired. COMPARISON: [facility], CR, XR CHEST 2VW, 06/01/2016, 8:23. FINDINGS: Surgical changes and devices: There are surgical angelique in the left upper thorax. A right sided cardiac pacemaker is seen with the thin expected position. There is a left PICC with the tip in SVC. Lungs and pleura: Mild diffuse interstitial prominence. No pleural effusions or pneumothorax. Mediastinum: Mediastinal contours appear normal. Heart size is normal. Bones and chest wall: No suspicious bony lesions. Overlying soft tissues appear unremarkable. IMPRESSION: Mild diffuse interstitial prominence suggests mild pulmonary congestion. Dictated by: Aden Amador M.D. on 06/05/2016 at 20:05 Approved by: Aden Amador M.D. on 06/05/2016 at 20:07 Assessment & Plan #Opiate dependence/withdrawal: -Vague symptoms of all over pain, lightheadedness and diarrhea, nausea vomiting CONSISTENT with opiate withdrawal. -I had a long discussion with this patient about opiate withdrawal and dependence. She does not wish to be opiate dependent and is agreeable to pulling back her pain medications as able with the goal of not having any narcotic need at all. -She was started on Dilaudid last night, I will half this dose, encouraged her to only take orals. We will switch her hydrocodone to oral Dilaudid -Patient has been on IV Dilaudid for 3 weeks, rapid discontinuation of opiates prior to discharge from previous hospitalization -I will start her on clonidine which has been shown to help in opiate withdrawal -Continue Ativan as needed Depression: -Worsened in her current condition, her Ativan and SSRI has been restarted -One-on-one care for now -Consider psychiatric evaluation. #Leukocytosis with left shift, acute, present on admission, active -Follow -No obvious sign of new or worsening infection, continue present antibiotics. - IV cefazolin 2 g IV every 8 - daptomycin 700 mg IV every 24 -Infectious disease has been consulted. #Coagulopathy -INR elevated, -Check ultrasound of her liver -Unknown significance, no history of alcoholism or liver disease. She is not on any anticoagulants -Follow INR, consider hematology consultation if indicated. # Diabetic ketoacidosis, and a known type I diabetic, present on admission, active -Continue sliding scale insulin #Hypoglycemia in a known type I diabetic, present on admission, active - Glucose 260 - Low-dose correctional scale insulin while in-house - IV fluids as above -Restart her Lantus # Acute lactic acidosis, present on admission, resolved - Lactic acid 2.3 and 1.8 on repeat - A anion gap 24 - IV fluids as above # Generalized deconditioning, as on admission, active - PT consult ordered # Diarrhea, acute onset, present on admission, active -Likely secondary to opiate withdrawal. Improved today. # Right perinephric abscess, present on admission, active - He was treated on recent admission prior to discharge on 06/04/2016 for MSSA and 3 species of coagulase-negative staph on prior admits blood culture. - Patient was seen by Dr. Ambrose who recommended high dose cefazolin through June 17 and daptomycin through June 24. Patient was to follow-up with Dr. Ambrose on June 12. As as an outpatient - We will continue previously dosed cefazolin 2 g IV every 8 from previous hospitalization. - We will continue previously dosed daptomycin 700 mg IV every 24 previous hospitalization. 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
--- NOTE | 2016-06-07 16:01 | NUR ---
Case Management [facility] prescription monitoring information placed in chart, Dr Beal notified.
--- NOTE | 2016-06-07 16:12 | DRSVH ---
PROCEDURE: US ABDOMEN, LIMITED ([id number]) INDICATIONS: elevated INR TECHNIQUE: Real-time focused scanning was performed of the abdomen, with image documentation. COMPARISON: [facility], CT, CT ABD PELVIS W CON, 06/05/2016, 21:01. FINDINGS: The liver appears moderately enlarged at 18.1 cm craniocaudad, with normal echotexture exce pt for what appears to be mild fatty infiltration. The gallbladder is surgically absent. Common marty t measures 6 mm. The right kidney is normal in craniocaudad length at 12.9 cm. IMPRESSION: The liver appears mildly enlarged, the liver echotexture appears mildly fatty infiltrated . No acute disease. Dictated by: Abdiaziz Tenorio M.D. on 06/07/2016 at 16:07 Approved by: Abdiaziz Tenorio M.D. on 06/07/2016 at 16:10
[2016-06-07] MEDS: Pantoprazole 40 mg ER24 Tablet PO SCH (17:32)
[2016-06-07] MEDS: cloNIDine 0.1 mg Tablet PO SCH ×2 (17:32→20:29)
[2016-06-07] MEDS: Insulin GLARgine 100 Unit/mL Syringe SUBQ SCH (20:34)
[2016-06-08] VITALS (8 sets, daily range): BP systolic 147–162; BP diastolic 90–98; PULSE 94–118; RESP 16–20; O2SAT 94–95
[2016-06-08] MEDS: CeFAZolin Inj 2 GM in Dextrose 5%-Pha MIX 50 ML IV SCH ×3 (02:54→18:46)
[2016-06-08 02:57] LABS: EOSINOPHILS % (AUTO) 5.7 % (0-5); MONOCYTES % (AUTO) 7.1 % (4-12); Mean Corpuscular Hemoglobin 25.9 pg (27.0-35.0); Mean Corpuscular Volume 86.9 fL (81-100); NEUTROPHILS % (AUTO) 66.7 % (40-74); Platelet Count 248 bil/L (150-400)
[2016-06-08] MEDS: LORazepam 1 mg Tablet PO PRN ×4 (03:17→22:02)
--- NOTE | 2016-06-08 04:30 | NUR ---
Pain: PRN 2 Mg PO Dilaudid given q4-5 hrs overnight. Pt c/o 6/10 generalized pain. Pt sleeping soundly overnight. There were a few occasions where pt very drowsy would awaken, ask for pain meds and promptly fall back to sleep w/ no s/s of distress/ discomfort. Pt denies any current suicidal ideation- sitter observing pt overnight.
[2016-06-08] MEDS: Insulin LISPRO 300 Unit/3 mL Inj SUBQ SCH ×4 (08:19→22:08)
[2016-06-08] MEDS: Venlafaxine XR 75 mg ER24 Capsule PO SCH (08:21)
[2016-06-08] MEDS: cloNIDine 0.1 mg Tablet PO SCH ×2 (08:21→20:15)
[2016-06-08] MEDS: Ondansetron 2 mg/mL 2 mL Inj IVPUSH PRN (08:22)
[2016-06-08] MEDS: Pantoprazole 40 mg ER24 Tablet PO SCH ×2 (08:22→17:44)
[2016-06-08] MEDS: MeTOProlol XL 50 mg ER24 Tablet PO SCH ×2 (08:22→20:15)
[2016-06-08] MEDS: Insulin GLARgine 100 Unit/mL Syringe SUBQ SCH ×2 (08:23→22:05)
[2016-06-08] MEDS: DAPTOmycin Inj 700 MG in 0.9% Sodium Chloride 50 ML IV SCH (09:35)
[2016-06-08] MEDS: 0.9% Sodium Chloride 1,000 ML IV SCH (10:50)
--- NOTE | 2016-06-08 11:29 | NUR ---
NUTRITION ASSESSMENT: ASSESS:36 YO female admitted with difficulty breathing, elevated blood glucose, generalized weakness, lightheadedness fatigue, reduced appetite, shortness of breath, pleuritic chest pain. Workup ongoing to determine source of leukocytosis; ID consult pending. Pt. with DKA, diarrhea (C. diff PCR ordered), right perinephric abscess, bilateral pleural effusions. She is requiring a sitter due to self report of suicide ideation; psychiatric consult under consideration. Her PO intake is inadequate, bites - 50% trays. PMHx:Type 1 diabetes, Graves disease, PTSD, anxiety, medication noncompliance, SVT, heart block, uterine fibroids, hiatal hernia, renal abscess, pacemaker. DIET:Consistent carb. PO intake bites - 50% trays. LABS: BUN 3, Glu 314, A1c 9.8 (past admission), Ca 8.2. MEDICATIONS: Insulin. NUTRITION FOCUSED PHYSICAL ASSESSMENT: GI symptoms / stool: No BM reported.Braydon: 18 Skin Integrity: No issues reported. ANTHROPOMETRICS: Current Wt: 103.9 kg BMI: 39.0 kg/m2.Admit weight: 104.55 kg. IBW: 54.5 kg (191.7% IBW) ESTIMATED NEEDS (Class II obesity): Calories: 1200 - 1364 kcal (22 - 25 kcal / kg IBW) Protein: 98 - 109 g protein (1.8 - 2.0 g / kg IBW) Fluid: Approx 3137 - 3660 mL (30 - 35 mL / kg BW) NUTRITION DIAGNOSIS: 1)Inadequate oral intake related to potential opiate withdrawal, requiring sitter, as evidenced by PO intake bites - 50% trays. INTERVENTION: 1) Will add Glucerna supplement for diabetes to lunch and dinner trays. 2) MONITOR/EVALUATE: Diet / supplement tolerance, PO intake, labs, GI/nutrition status. Follow up per moderate nutrition risk guidelines.
--- NOTE | 2016-06-08 13:45 | NUR ---
Appetite Pt continues to not have appetite. Encouraged pt to eat breakfast, pt stated not hungry. Encouraged pt to eat lunch, pt stated not hungry. Pt sleeping most of the day. Interactions and communications appropriate. Care continues.
--- NOTE | 2016-06-08 15:47 | NUR ---
Social Work: MH Assessment Current Situation: Pt is a 36 year old female admitted for tachycardia, dehydration. Pt was discharged on 06/04 after three weeks of hospitalization for a kidney abscess. Pt was receiving daily pain medications however was discharged without being properly weaned. Pt returned with symptoms consistent with opiate withdrawal. PERFORATOR OPERATOR OIL WELL met with pt at bedside to discuss recent reports that pt was experiencing suicidal ideation and thoughts of self harm. Pt reports that following: Overnight on 06/06 pt had reported to noc shift RN that she was researching ways to harm herself with the hope that she would be able to get some pain medication. 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 Current Mental Status: Pt is alert and oriented x4. Pt is tearful throughout assessment but very forthcoming about her shame that her current pain has caused her to consider such drastic ways to seek pain relief. Pt's thought processes are clear and linear. Pt denies suicidal ideation stating "I don't want to , I just don't want to be in pain." Pt judgement is impaired due to current pain and opioid withdrawal. Pt remains on a 1:1 to ensure safety. Pt agreed that she will notify her bedside RN, case management or any staff member that she feels she can trust if her thoughts of self-harm continue to escalate. Pt committing at this time to keep herself safe and to be transparent with staff about feelings knowing that there will be no judgment from staff. CD History: Pt denies any previous substance use and states that prior to her previous hospitalization she did not use narcotics and managed her pain mostly with Tylonol. MH History: Pt reports that she does have depression and anxiety. Her home medications have been restarted. Pt is not currently open for MH services and does not feel she needs these at this time. Natural Supports: Pt denies any natural supports or people she can call to provide emotional support during her admission. Pt declined spiritual care from conservation policy analyst. Pt was receptive to having wool carder come to check in periodically. Disposition: Pt is not actively suicidal but in a substantial amount of pain. Pt stating that she wishes to be weaned from opiates however also not wanting to experience intense withdrawal symptoms. Pt is willing to contract for safety and will request PERFORATOR OPERATOR [employer]IL WELL meeting if she continues to feel that she needs to seek such drastic measures to get pain medications. Pt is hopeful that these thoughts will subside as her pain is resolved and she works through her opioid withdrawal. PERFORATOR OPERATOR OIL WELL will continue to follow closely, pt with remain with a sitter on a 1:1 and medical team will continue to manage pt's withdrawal. PERFORATOR OPERATOR OIL WELL will need to clear pt on her day of discharge prior to her departure. DAYLIN Harris
--- NOTE | 2016-06-08 18:03 | PCM.PNMED ---
Subjective Date of Service Jun 08, 2016 Subjective Patient resting in bed comfortably when I visit with her. Staff reports her waking up asking for pain medicines and going back to sleep. She denies chest pain, nausea vomiting, diarrhea or constipation. No suicidal ideation currently Exam Vital Signs Vital Sign - Last Date Time Temp Pulse Resp B/P Pulse Ox O2 Delivery O2 Flow Rate FiO2 06/08/16 13:51 36.4 108 20 147/91 94 Room Air Intake and Output 06/07/16 06/07/16 06/08/16 Cumulative From/Thru 15:00 23:00 07:00 06/05/16 19:18 - 06/08/16 05:12 Intake Total 1599 ml 1954 ml 79576 ml Output Total 1600 ml 1600 ml 900 ml 7050 ml Balance -1600 ml -1 ml 1054 ml 4091 ml Intake Oral 400 ml 1038 ml 3565 ml IV Total 1199 ml 916 ml 7576 ml Output Urine Total 1600 ml 1600 ml 900 ml 7050 ml # Bowel Movements 0 0 Exam General: Alert, Oriented X3, NAD Head: Normocephalic, atraumatic Eyes: TOMMY, EOMI, no scleral Icterus Chest: clear to auscultation B/L, no wheezing rales or rhonchi Heart: Regular rate and rhythm. Normal S1, S2, no murmurs noted Abdomen: soft, non-tender. Bowel sounds are normoactive. No guarding or rebound. Extremities: no cyanosis, clubbing or edema. IVs and Medications Medications Reviewed: Medications were reviewed in detail Lab and Diagnostics Result Diagram: 06/08/16 02406/08/16 024 X-Rays, CTs and MRIs Date of Service: 06/05/162047 PROCEDURE: CT ABDOMEN AND PELVIS WITH CONTRAST INDICATIONS: tachycardia, pleuritic CP TECHNIQUE: After the administration of intravenous contrast, 5 mm thick sections acquired from the diaphragm to the symphysis. 5 mm coronal and sagittal reformats were acquired. For radiation dose reduction, the following was used: automated exposure control, adjustment of mA and/or kV according to patient size. COMPARISON: [facility], CT, ABDOMEN WITHOUT CONTRAST, 05/20/2016, 7:39. [facility], CT, CT ABD W CON, 05/28/2016, 13:55. FINDINGS: Image quality: Excellent. ABDOMEN: Lung bases: There are small to moderate bilateral pleural effusions, increased compared to the last exam. Basilar compression atelectasis. Heart size is normal. Solid organs: Liver and spleen are normal in size and enhancement. Gallbladder is surgically absent. Biliary system is non dilated. Pancreas enhances normally. No adrenal nodules. Kidneys demonstrate normal size and enhancement, without hydronephrosis. Peritoneum and bowel: A small rim enhancing fluid collection consistent with abscess is seen in the anterior lateral aspect of the right kidney measuring 1.3 x 2.2 cm, unchanged in size. There is a trace amount of free fluid near the inferior origin of liver and in the right perinephric space. Bowel loops demonstrate normal wall thickness and caliber. No free air. Nodes and vessels: No retroperitoneal or mesenteric adenopathy by size criteria. Aorta and inferior vena cava are normal in size. Miscellaneous: No ventral hernias. There is mild bodywear edema. PELVIS: Genitourinary: Bladder wall thickness is normal. Uterus is unremarkable. The left ovary is prominent measuring 3.2 x 3.8 cm. The right ovary is not visualized. Miscellaneous: No inguinal hernias or adenopathy. Bones: No suspicious bony lesions. No vertebral body compression fractures. IMPRESSION: 1. A small abscess cavity anterolateral to the right kidney, which is unchanged in size compared to 05/23/2016. 2. A trace amount of free fluid. 3. Bilateral ruofw-dl-rcybsise pleural effusions, slightly increased. Dictated by: Aden Amador M.D. on 06/05/2016 at 21:40 Approved by: Aden Amador M.D. on 06/05/2016 at 21:48 Date of Service: 06/05/162047 PROCEDURE: CT ANGIO CHEST PULMONARY EMBOLISM INDICATIONS: tachycardia, pleuritic CP TECHNIQUE: After the administration of intravenous contrast, 2 mm thick sections acquired from the pulmonary apices to the posterior costophrenic angles. 3-dimensional maximum intensity projection (MIP) coronal and sagittal reformats were then acquired through the thorax. For radiation dose reduction, the following was used: automated exposure control, adjustment of mA and/or kV according to patient size. COMPARISON: [facility], CR, XR CHEST 2VW, 05/28/2016, 6:40. [facility], CT, CT ABD W CON, 05/28/2016, 13:55. [facility], CR , XR CHEST 2VW, 06/01/2016, 8:23. [facility], CR, XR CHEST 1VW ( PORTABLE), 06/05/2016, 19:35. FINDINGS: Image quality: Excellent. Pulmonary arteries: Pulmonary arteries are normal in size, and demonstrate no intraluminal filling defects to suggest central pulmonary embolism. Lungs and pleura: There are bilateral qczcq-rg-rbjgcnyh pleural effusions and bibasilar compression atelectasis. Pleural effusions are slightly increased compared with 05/20/2016. No pneumothorax. Central and peripheral airways are patent. Mediastinum: Heart size is normal, without pericardial effusion. No mediastinal or hilar adenopathy. Thoracic aorta is normal in caliber and enhancement. Esophagus is normal in caliber, without hiatal hernia. Bones and chest wall: No suspicious bony lesions. Ribs and thoracic spine appear intact throughout. Thyroid gland is normal. No axillary or supraclavicular adenopathy. There are surgical angelique in the left anterior chest. Abdomen: Visualized upper abdominal solid organs appear normal in the early arterial phase of enhancement. IMPRESSION: 1. No evidence for central pulmonary embolism. 2. Mild increase in bilateral small to moderate pleural effusions. Dictated by: Aden Amador M.D. on 06/05/2016 at 21:29 Approved by: Aden Amador M.D. on 06/05/2016 at 21:40 Date of Service: 06/05/161929 PROCEDURE: X-RAY CHEST ONE VIEW, PORTABLE INDICATIONS: SHORT OF BREATH TECHNIQUE: One view of the chest was acquired. COMPARISON: [facility], CR, XR CHEST 2VW, 06/01/2016, 8:23. FINDINGS: Surgical changes and devices: There are surgical angelique in the left upper thorax. A right sided cardiac pacemaker is seen with the thin expected position. There is a left PICC with the tip in SVC. Lungs and pleura: Mild diffuse interstitial prominence. No pleural effusions or pneumothorax. Mediastinum: Mediastinal contours appear normal. Heart size is normal. Bones and chest wall: No suspicious bony lesions. Overlying soft tissues appear unremarkable. IMPRESSION: Mild diffuse interstitial prominence suggests mild pulmonary congestion. Dictated by: Aden Amador M.D. on 06/05/2016 at 20:05 Approved by: Aden Amador M.D. on 06/05/2016 at 20:07 Assessment & Plan #Opiate dependence/withdrawal: -Vague symptoms of all over pain, lightheadedness and diarrhea, nausea vomiting CONSISTENT with opiate withdrawal. -I had a long discussion with this patient about opiate withdrawal and dependence. She does not wish to be opiate dependent and is agreeable to pulling back her pain medications as able with the goal of not having any narcotic need at all. -Her drug Registry records were pulled noting that she has been receiving about 15-30 tablets of hydrocodone per month from various physicians over the past year which is not an excessive amount necessarily but when I asked her her history with narcotics, she commented only 1-2 prescriptions in the past. This is concerning for possible drug-seeking behavior. -Discontinue all IV Dilaudid, continue oral Dilaudid at current dose. -Patient has been on IV Dilaudid for 3 weeks, rapid discontinuation of opiates prior to discharge from previous hospitalization -Continue clonidine -Continue Ativan as needed Depression: -Worsened in her current condition, her Ativan and SSRI has been restarted -One-on-one care for now -Consider psychiatric evaluation. #Leukocytosis with left shift, acute, present on admission, active -Follow -No obvious sign of new or worsening infection, continue present antibiotics. - IV cefazolin 2 g IV every 8 - daptomycin 700 mg IV every 24 -Infectious disease has been consulted. #Coagulopathy -INR elevated, -Check ultrasound of her liver -Unknown significance, no history of alcoholism or liver disease. She is not on any anticoagulants -Follow INR, consider hematology consultation if indicated. # Diabetic ketoacidosis, and a known type I diabetic, present on admission, active -Continue sliding scale insulin #Hypoglycemia in a known type I diabetic, present on admission, active - Continue sliding scale insulin, increased dose - IV fluids as above - Lantus # Acute lactic acidosis, present on admission, resolved - Lactic acid 2.3 and 1.8 on repeat - A anion gap 24 - IV fluids as above # Generalized deconditioning, as on admission, active - PT consult ordered # Diarrhea, acute onset, present on admission, active -Likely secondary to opiate withdrawal. Improved # Right perinephric abscess, present on admission, active - He was treated on recent admission prior to discharge on 06/04/2016 for MSSA and 3 species of coagulase-negative staph on prior admits blood culture. - Patient was seen by Dr. Ambrose who recommended high dose cefazolin through June 17 and daptomycin through June 24. Patient was to follow-up with Dr. Ambrose on June 12. As as an outpatient - We will continue previously dosed cefazolin 2 g IV every 8 from previous hospitalization. - We will continue previously dosed daptomycin 700 mg IV every 24 previous hospitalization. # Bilateral pleural effusions as seen on chest CT angiogram, present on admission, active # Hypomagnesemia, present remission, active - Magnesium level 1.2 -Replacing # Normocytic hypochromic anemia, chronicity unknown, present on admission, active # Tachycardia: -Interrogated pacer Chronic Problems Type I diabetes Graves' disease 1991 PTSD/anxiety History of medication noncompliance SVT Heart Block Anxiety Uterine fibroids Hiatal hernia Renal abscess Reports: Diabetes mellitus History pacemaker secondary to heart block, now status post pacemaker placement secondary to infected component CODE STATUS: Full code PCP: Arielle Aguilar DO DVT PE prophylaxis: Enoxaparin VTE Prophylaxis: Sub-Q Enoxaparin Resuscitation Status: CPR: Attempt Resuscitation Lio Beal DO Jun 08, 2016 18:03
[2016-06-09] MEDS: 0.9% Sodium Chloride 1,000 ML IV SCH ×2 (00:07→09:24)
[2016-06-09 00:09] VITALS: BP 147/96; PULSE 107; RESP 22; O2SAT 93
--- NOTE | 2016-06-09 00:11 | NUR ---
Pain Patient noted to be talking on the phone in her room at approximately 2100; appeared to be smiling and laughing. At 2109 patient put percussion instructor light and reported to DRE rooney that she needed the nurse because she was in "10 out of 10 pain." Upon nurse's arrival in room, patient began sobbing and rocking at the edge of the bed and stated that she was "in too much pain" and "needs the IV dilauded, the instant stuff" because she did not feel that she could wait for the PO dilauded to take effect and she is "not strong enough" to tolerate the pain. Reminded patient that the goal has been to avoid IV pain medications, and suggested other treatments to alleviate discomfort such and hot or ice packs, cyclobenzaprine or tylenol as prescribed. Patient refused all other modalities and insisted that she "could not make it" without IV dilauded and then stated that "the night doctor was helping me last night." Discussed patient's pain management and ongoing care plan with night hospitalist face to face. Per night hospitalist, continue with current care plan; avoid IV pain medication. Discussed this with patient. Patient given PO ativan and dilauded per existing orders, with PRN tylenol also per existing orders. Continue to monitor. Addendum: 06/09/16 at 0611 by NIKI VERMA RN Patient asleep for the remainder of the night. Rouses for care, then goes back to sleep shortly afterward. No further pain medications given during the night.
[2016-06-09] MEDS: CeFAZolin Inj 2 GM in Dextrose 5%-Pha MIX 50 ML IV SCH ×2 (02:55→10:00)
[2016-06-09 03:35] VITALS: BP 130/87; PULSE 97; RESP 20; O2SAT 96
[2016-06-09 04:44] LABS: Mean Corpuscular Hemoglobin 25.9 pg (27.0-35.0); Mean Corpuscular Volume 86.2 fL (81-100)
[2016-06-09 05:58] VITALS: PULSE 117
[2016-06-09 08:55] VITALS: BP 157/102; PULSE 102; RESP 18; O2SAT 95
[2016-06-09 09:06] VITALS: PULSE 102
[2016-06-09] MEDS: MeTOProlol XL 50 mg ER24 Tablet PO SCH (09:12)
[2016-06-09] MEDS: Pantoprazole 40 mg ER24 Tablet PO SCH (09:12)
[2016-06-09] MEDS: cloNIDine 0.1 mg Tablet PO SCH (09:13)
[2016-06-09] MEDS: LORazepam 1 mg Tablet PO PRN (09:13)
[2016-06-09] MEDS: Venlafaxine XR 75 mg ER24 Capsule PO SCH (09:13)
[2016-06-09] MEDS: Insulin LISPRO 300 Unit/3 mL Inj SUBQ SCH ×2 (09:16→12:00)
[2016-06-09] MEDS: Insulin GLARgine 100 Unit/mL Syringe SUBQ SCH (09:18)
[2016-06-09] MEDS: DAPTOmycin Inj 700 MG in 0.9% Sodium Chloride 50 ML IV SCH (09:21)
[2016-06-09] MEDS ORDERED: HYDR2TAB27 PO (11:16)
--- NOTE | 2016-06-09 11:17 | NUR ---
Pain At approximately 0900 OBSTETRICIAN reported pt asking for pain medication. 0910 Pt visiting with father, asking this RN for IV pain medication for breakthrough pain, states she can not handle the pain in her chest. cardiac cath tech reported V paced at 114. Administered am medications including Dilaudid and Ativan. Pt spit out medications claiming pain is too much to swallow pills. Demanding IV Dilaudid. Encouraged pt to continue with oral medication to help with pain. Reminded pt of MD conversation yesterday, IV Dilaudid is no longer available, only oral. Pt continues to cry out in pain. Encouraged pt to take oral medication. Pt finally took all medication. 0935 pt sleeping. MD notified in report. Care continues.
--- NOTE | 2016-06-09 11:27 | NUR ---
Social Work Note: Discharge Data& Assessment: Per pt is medically ready for discharge. Roseline Frey is a 36 year old female admitted on 06/05/2016 for tachycardia and dehydration. Per pt is medically improved and ready for discharge. RACHEL met with pt and pt father at bedside to confirm discharge plan and assess for any unmet needs. Pt continues to deny any suicidal ideation. Pt confirmed she has the Crisis Line number to call if she does experience any suicidal ideation. Pt had told RACHEL yesterday that she wasn't actually ever suicidal, she was hoping to get more pain medication. RACHEL called [facility] and spoke with Rere to notify them of pt discharge and resume IV abx orders. DC paperwork faxed to [facility] ([phone]). Pt father transporting her home. Pt denies any other needs No other discharge needs identified. All updated and agreeable to plan. Plan: Per pt is medically ready to discharge home via POV with resume [facility] IV abx. [facility] notified of pt discharge. Pt father transporting her home. Pt denies any other needs No other discharge needs identified. All updated and agreeable to plan. DAYLIN Briones Addendum: 06/09/16 at 1146 by THOMPSON BURNETT RACHEL confirmed discharge plan with . agreeable to plan and does not have any concerns discharging pt with resume home infusion. All updated and agreeable to plan. DAYLIN Briones
--- NOTE | 2016-06-09 11:28 | PCM.DIMED ---
Discharge Instructions Date of Service Jun 09, 2016 Dates of Hospitalization Jun 05, 2016 at 22:27 Discharge Diagnosis Discharge Diagnosis Perinephric abscess Recent pacemaker replacement Opiate withdrawal Graves' disease/hypothyroid Diet Diabetic Activity Limited until seen by PCP Call your provider Fever or Chills, Chest pain, Weakness (unilateral) Patient Instructions Follow-up plan Discharge home with [facility] infusion/home health to resume her antibiotic infusion. Follow-up with infectious disease as previously scheduled Follow-up with an ideal option for opiate withdrawal Follow-up with PCP within one week, sooner if condition worsens in anyway. Follow-up with cardiology in 1-3 days for pacemaker evaluation Follow-up with PCP in: 1 week Lio Beal DO Jun 09, 2016 11:28
--- NOTE | 2016-06-09 12:30 | NUR ---
Discharge Pt discharged at approximately 1230 to home with Father. Pt given discharge packet with educational material for dehydration and narcotic abuse. One new prescription for oral Dilaudid. Next dose to be taken on all medications clearly written and dated. Going home with L PICC line in place for home infusions. Tele DCd vehicle monitor technician notified. Pt acknowledged and understood all information. Pt left with all personal belongings. Escorted by CORN CUTTER in wheelchair to door.
--- NOTE | 2016-06-09 20:14 | PCM.DC.MED ---
Discharge Summary Date of Service Jun 09, 2016 Dates of Hospitalization Date of Hospital Admission Jun 05, 2016 at 22:27 Date of Discharge: Jun 09, 2016 Providers: Admitting Physician: Vamsi Garcias MD Primary Care Physician: Arielle Aguilar DO Attending Physician: Vamsi Garcias MD Diagnosis at Time of Discharge Diagnosis at Time of Discharge Perinephric abscess Recent pacemaker replacement Opiate withdrawal Graves' disease/hypothyroid Procedures XRay, CTs & MRIs Date of Service: 06/05/162047 PROCEDURE: CT ABDOMEN AND PELVIS WITH CONTRAST INDICATIONS: tachycardia, pleuritic CP TECHNIQUE: After the administration of intravenous contrast, 5 mm thick sections acquired from the diaphragm to the symphysis. 5 mm coronal and sagittal reformats were acquired. For radiation dose reduction, the following was used: automated exposure control, adjustment of mA and/or kV according to patient size. COMPARISON: [facility], CT, ABDOMEN WITHOUT CONTRAST, 05/20/2016, 7:39. [facility], CT, CT ABD W CON, 05/28/2016, 13:55. FINDINGS: Image quality: Excellent. ABDOMEN: Lung bases: There are small to moderate bilateral pleural effusions, increased compared to the last exam. Basilar compression atelectasis. Heart size is normal. Solid organs: Liver and spleen are normal in size and enhancement. Gallbladder is surgically absent. Biliary system is non dilated. Pancreas enhances normally. No adrenal nodules. Kidneys demonstrate normal size and enhancement, without hydronephrosis. Peritoneum and bowel: A small rim enhancing fluid collection consistent with abscess is seen in the anterior lateral aspect of the right kidney measuring 1.3 x 2.2 cm, unchanged in size. There is a trace amount of free fluid near the inferior origin of liver and in the right perinephric space. Bowel loops demonstrate normal wall thickness and caliber. No free air. Nodes and vessels: No retroperitoneal or mesenteric adenopathy by size criteria. Aorta and inferior vena cava are normal in size. Miscellaneous: No ventral hernias. There is mild bodywear edema. PELVIS: Genitourinary: Bladder wall thickness is normal. Uterus is unremarkable. The left ovary is prominent measuring 3.2 x 3.8 cm. The right ovary is not visualized. Miscellaneous: No inguinal hernias or adenopathy. Bones: No suspicious bony lesions. No vertebral body compression fractures. IMPRESSION: 1. A small abscess cavity anterolateral to the right kidney, which is unchanged in size compared to 05/23/2016. 2. A trace amount of free fluid. 3. Bilateral avduy-ri-nomlhbij pleural effusions, slightly increased. Dictated by: Aden Amador M.D. on 06/05/2016 at 21:40 Approved by: Aden Amador M.D. on 06/05/2016 at 21:48 Date of Service: 06/05/162047 PROCEDURE: CT ANGIO CHEST PULMONARY EMBOLISM INDICATIONS: tachycardia, pleuritic CP TECHNIQUE: After the administration of intravenous contrast, 2 mm thick sections acquired from the pulmonary apices to the posterior costophrenic angles. 3-dimensional maximum intensity projection (MIP) coronal and sagittal reformats were then acquired through the thorax. For radiation dose reduction, the following was used: automated exposure control, adjustment of mA and/or kV according to patient size. COMPARISON: [facility], CR, XR CHEST 2VW, 05/28/2016, 6:40. [facility], CT, CT ABD W CON, 05/28/2016, 13:55. [facility], CR , XR CHEST 2VW, 06/01/2016, 8:23. [facility], CR, XR CHEST 1VW ( PORTABLE), 06/05/2016, 19:35. FINDINGS: Image quality: Excellent. Pulmonary arteries: Pulmonary arteries are normal in size, and demonstrate no intraluminal filling defects to suggest central pulmonary embolism. Lungs and pleura: There are bilateral ehbmn-cb-dpexzdct pleural effusions and bibasilar compression atelectasis. Pleural effusions are slightly increased compared with 05/20/2016. No pneumothorax. Central and peripheral airways are patent. Mediastinum: Heart size is normal, without pericardial effusion. No mediastinal or hilar adenopathy. Thoracic aorta is normal in caliber and enhancement. Esophagus is normal in caliber, without hiatal hernia. Bones and chest wall: No suspicious bony lesions. Ribs and thoracic spine appear intact throughout. Thyroid gland is normal. No axillary or supraclavicular adenopathy. There are surgical angelique in the left anterior chest. Abdomen: Visualized upper abdominal solid organs appear normal in the early arterial phase of enhancement. IMPRESSION: 1. No evidence for central pulmonary embolism. 2. Mild increase in bilateral small to moderate pleural effusions. Dictated by: Aden Amador M.D. on 06/05/2016 at 21:29 Approved by: Aden Amador M.D. on 06/05/2016 at 21:40 Date of Service: 06/05/16 193 PROCEDURE: X-RAY CHEST ONE VIEW, PORTABLE INDICATIONS: SHORT OF BREATH TECHNIQUE: One view of the chest was acquired. COMPARISON: [facility], CR, XR CHEST 2VW, 06/01/2016, 8:23. FINDINGS: Surgical changes and devices: There are surgical angelique in the left upper thorax. A right sided cardiac pacemaker is seen with the thin expected position. There is a left PICC with the tip in SVC. Lungs and pleura: Mild diffuse interstitial prominence. No pleural effusions or pneumothorax. Mediastinum: Mediastinal contours appear normal. Heart size is normal. Bones and chest wall: No suspicious bony lesions. Overlying soft tissues appear unremarkable. IMPRESSION: Mild diffuse interstitial prominence suggests mild pulmonary congestion. Dictated by: Aden Amador M.D. on 06/05/2016 at 20:05 Approved by: Aden Amador M.D. on 06/05/2016 at 20:07 Brief History This is a pleasant 36-year-old female with past medical history of type I diabetes, Graves' disease, SVT with pacemaker placement status post ablation, with with repeat placement of new pacemaker after possible bacterial contamination, and history of right-sided perinephric abscess status post nephrostomy tube removal on May 28, patient was recently discharged from from [facility] on 06/04/2016 secondary to admission for perinephric abscess and was placed on cefazolin and and daptomycin as an outpatient by Dr. Ambrose infectious disease. Patient presented to the ED today complaining of generalized weakness and fatigue onset 2300 on 06/05/2016 with associated symptoms of lightheadedness fatigue resulting in fall but did not hit head, reduced appetite, watery diarrhea, nausea and shortness of breath with exertion as well as pleuritic chest pain. Note patient has had mild nonproductive cough for 24 hours. Patient had ketones 80 in the urine, and an anion gap of 24 on admission. Patient had a blood glucose of 260 and 80. Patient reports that she had a glucose of 347 at 1700 this evening and had taken 20 units of her NovoLog U1 100 at home which reduced her blood glucose to 172 presently. Patient did not have PE on CT however did show bilateral bjxhh-zy-wcssloaw pleural effusions slightly increased from prior study. Patient denies fevers, abdominal pain, vomiting, dysuria, hematuria, constipation, Vital signs: Temperature 36.3, pulse 131, respiratory rate 30, blood pressure 173/95 with a map of 121, 16% in room air. In the ED patient received 2 L IV bolus of saline. Hemogram showed elevated WBCs at 11.0, with 81.1% PMNs, hemoglobin 10.1, hematocrit 33.8, platelets 348, MCH 25.9 MCHC 29.9, RDW 15.5 Chemistry panel: Showed carbon dioxide 16.0, glucose 260, lactic acid 2.3 with repeat lactic acid 1.8, magnesium 1.2 low, proBNP 3919, opium and 2.8, hCG was negative, otherwise normal cancer panel. PT 20.1, INR 125 UA significant for pH of 5.5, glucose 250, urine ketones 80, moderate blood, moderate leukocyte esterase, 6-10 white blood cells per high-power field, amorphous urate crystals, moderate bacteria. Urine culture are pending Blood cultures ordered and pending CT abdomen showed: 1. A small abscess cavity anterolateral to the right kidney, which is unchanged in size compared to 05/23/2016. 2. A trace amount of free fluid. 3. Bilateral ilpdg-jc-amonkxru pleural effusions, slightly increased. CT Angio chest: 1. No evidence for central pulmonary embolism. 2. Mild increase in bilateral small to moderate pleural effusions. CXR: Mild diffuse interstitial prominence suggests mild pulmonary congestion. Hospital Course This is a pleasant 36-year-old female with past medical history of type I diabetes, Graves' disease, SVT with pacemaker placement status post ablation, with with repeat placement of new pacemaker after possible bacterial contamination, and history of right-sided perinephric abscess status post nephrostomy tube removal on May 28, patient was recently discharged from from [facility] on 06/04/2016 secondary to admission for perinephric abscess and was placed on cefazolin and and daptomycin as an outpatient by Dr. Ambrose infectious disease. Patient was admitted after presenting with weakness , diarrhea, lightheadedness, fall. It was determined that the patient was having withdrawals from Dilaudid, she had spent the whole previous admission on 1 mg of Dilaudid every 3 hours for her perinephric abscess pain. The patient was very difficult to get to wean down on her pain medications per staff taking care of her. Through her stay she was in agreement that she wanted to be off of opiates and also stated that she had never had significant experience with opiates previously. During her stay she did have some concerning behaviors consistent with drug-seeking behaviors. Eventually her drug Registry was pulled showing that she had been receiving 15-30 tablets per month over the last year from various physicians. This is indirect contrast to what she had told me, certainly not an excessive amount of narcotics but inconsistent with her story. Apparently she has been refused at other facilities due to drug- seeking behavior. At one point she even admitted to threatening suicidal behavior to get IV Dilaudid. Due to her history, she is high risk for ongoing opiate dependence/addiction which evidently predates her previous admission. She was given information for ideal option for opiate addiction and recovery who uses Suboxone or Subutex. She was given a prescription of 15 tablets of 2 mg oral Dilaudid to get her through the rest of the weekend where she can get into the clinic to receive some help. She was discharged home in stable condition, PICC line still in place for IV antibiotics, this will need to be discontinued of course shortly after finishing her IV antibiotics. She will need a follow-up with Dr. Ambrose as previously scheduled as well as her primary care physician. Delineated problem list as below #Opiate dependence/withdrawal: -Vague symptoms of all over pain, lightheadedness and diarrhea, nausea vomiting CONSISTENT with opiate withdrawal. -I had a long discussion with this patient about opiate withdrawal and dependence. She does not wish to be opiate dependent and is agreeable to pulling back her pain medications as able with the goal of not having any narcotic need at all. -Her drug Registry records were pulled noting that she has been receiving about 15-30 tablets of hydrocodone per month from various physicians over the past year which is not an excessive amount necessarily but when I asked her her history with narcotics, she commented only 1-2 prescriptions in the past. This is concerning for possible drug-seeking behavior. -Discontinue all IV Dilaudid, continue oral Dilaudid at current dose. -Patient has been on IV Dilaudid for 3 weeks, rapid discontinuation of opiates prior to discharge from previous hospitalization -Continue clonidine -Continue Ativan as needed Depression: -Worsened in her current condition, her Ativan and SSRI has been restarted -One-on-one care for now -Consider psychiatric evaluation. #Leukocytosis with left shift, acute, present on admission, active -Follow -No obvious sign of new or worsening infection, continue present antibiotics. - IV cefazolin 2 g IV every 8 - daptomycin 700 mg IV every 24 -Infectious disease has been consulted. #Coagulopathy -INR elevated, -Check ultrasound of her liver -Unknown significance, no history of alcoholism or liver disease. She is not on any anticoagulants -Follow INR, consider hematology consultation if indicated. # Diabetic ketoacidosis, and a known type I diabetic, present on admission, active -Continue sliding scale insulin #Hypoglycemia in a known type I diabetic, present on admission, active - Continue sliding scale insulin, increased dose - IV fluids as above - Lantus # Acute lactic acidosis, present on admission, resolved - Lactic acid 2.3 and 1.8 on repeat - A anion gap 24 - IV fluids as above # Generalized deconditioning, as on admission, active - PT consult ordered # Diarrhea, acute onset, present on admission, active -Likely secondary to opiate withdrawal. Improved # Right perinephric abscess, present on admission, active - He was treated on recent admission prior to discharge on 06/04/2016 for MSSA and 3 species of coagulase-negative staph on prior admits blood culture. - Patient was seen by Dr. Ambrose who recommended high dose cefazolin through June 17 and daptomycin through June 24. Patient was to follow-up with Dr. Ambrose on June 12. As as an outpatient - We will continue previously dosed cefazolin 2 g IV every 8 from previous hospitalization. - We will continue previously dosed daptomycin 700 mg IV every 24 previous hospitalization. # Bilateral pleural effusions as seen on chest CT angiogram, present on admission, active # Hypomagnesemia, present remission, active - Magnesium level 1.2 -Replacing # Normocytic hypochromic anemia, chronicity unknown, present on admission, active # Tachycardia: -Interrogated pacer Chronic Problems Type I diabetes Graves' disease 1991 PTSD/anxiety History of medication noncompliance SVT Heart Block Anxiety Uterine fibroids Hiatal hernia Renal abscess Reports: Diabetes mellitus History pacemaker secondary to heart block, now status post pacemaker placement secondary to infected component CODE STATUS: Full code PCP: Arielle Aguilar DO DVT PE prophylaxis: Enoxaparin Exam Vital Signs (Last) Date Time Temp Pulse Resp B/P Pulse Ox O2 Delivery O2 Flow Rate FiO2 06/09/16 09:06 102 06/09/16 08:55 36.6 18 157/102 95 Room Air Test 06/05/16 19:37 06/05/16 20:55 06/05/16 21:24 06/06/16 01:28 Phosphorus Level 2.4mg/dL (2.5-4.9) Total Bilirubin 0.2mg/dL (0.0-1.2) Aspartate Amino Transf (AST/SGOT) 8U/L (0-50) Alanine Aminotransferase (ALT/SGPT) < 5U/L (0-32) Alkaline Phosphatase 112U/L (25-150) Troponin T < 0.010ug/L (0.0-0.011) Pro-B-Type Natriuretic Peptide 3919pg/mL (0-130) Total Protein 6.6g/dL (6.4-8.4) Albumin 2.8g/dL (3.4-5.0) Lipase 10U/L (13-60) Procalcitonin 0.06ng/mL (0.00-0.08) Urine Color Yellow (YELLOW) Urine Appearance Hazy (CLEAR,HAZY) Urine pH 5.5 (5.0-8.0) Urine Specific [place] 1.015 (1.003-1.035) Urine Protein Tracemg/dL (NEG,TRACE) Urine Glucose (UA) 250mg/dL (NEGATIVE) Urine Ketones 80mg/dL (NEGATIVE) Urine Occult Blood Moderate (NEGATIVE) Urine Nitrite Negative (NEGATIVE) Urine Bilirubin Negative (NEGATIVE) Urine Urobilinogen Normalmg/dL (NORMAL) Urine Leukocyte Esterase Moderate (NEGATIVE) Urine RBC 3-10/hpf (0-2) Urine WBC 6-10/hpf (0-5) Urine Epithelial Cells Moderate/hpf (NONE-MOD) Urine Crystals Amorphous urates (NONE Urine Bacteria Moderate/hpf (NONE-FEW) Urine Hyaline Casts None/lpf (NONE) Urine Granular Casts None seen (NONE SEEN) Urine Waxy Casts None seen (NONE SEEN) Urine Red Blood Cell Casts None seen (NONE SEEN) Urine White Blood Cell Casts None seen (NONE SEEN) Urine Mucus None seen (None Seen) Urine Trichomonas None seen (NONE SEEN) Urine Yeast None (NONE SEEN) Urinalysis Comment None Urine Culture Reflexed Indicated Human Chorionic Gonadotropin, Qual Negative (Negative) Ketones Small (Negative) Test 06/06/16 06:40 06/06/16 09:20 06/06/16 10:15 06/07/16 03:30 Lactic Acid Level 0.9mmol/L (0.4-2.0) Hold Brandon Top Tube Received (Received) Magnesium Level 2.0mg/dL (1.6-2.6) Prothrombin Time 18.7sec (8.1-12.5) Prothromb Time International Ratio 1.73ratio Test 06/08/16 02:40 06/09/16 04:30 Neutrophils (%) (Auto) 66.7% (40-74) Lymphocytes (%) (Auto) 19.3% (14-46) Monocytes (%) (Auto) 7.1% (4-12) Eosinophils (%) (Auto) 5.7% (0-5) Basophils (%) (Auto) 1.0% (0-3) White Blood Count 5.0th/mm3 (3.8-10.1) Red Blood Count 3.48mil/mm3 (3.90-5.20) Hemoglobin 9.0g/dL (12.0-15.6) Hematocrit 30.0% (35.0-46.0) Mean Corpuscular Volume 86.2fL (81-100) Mean Corpuscular Hemoglobin 25.9pg (27.0-35.0) Mean Corpuscular Hemoglobin Concent 30.0% (32.0-37.0) Red Cell Distribution Width 15.7% (12.3-15.4) Platelet Count 227bil/L (150-400) Sodium Level 139mEq/L (134-144) Potassium Level 3.3mEq/L (3.5-5.2) Chloride Level 101mEq/L (97-108) Carbon Dioxide Level 25mmol/L (18-29) Blood Urea Nitrogen 5mg/dL (6-20) Creatinine 0.59mg/dL (0.57-1.00) Estimat Glomerular Filtration Rate 163mL/min (>59) Glucose Level 300mg/dL (60-99) Calcium Level 8.1mg/dL (8.5-10.1) Discharge Medications Discharge Medications Amitriptyline (Amitriptyline) 25 Mg Tab 50-100 MG PO HS (Reported) Aspirin Chew (Aspirin Chew) 81 Mg Chew 81 MG PO QAM (Reported) Atorvastatin (Lipitor) 80 Mg Tablet 80 MG PO HS (Reported) Cefazolin Sodium (Cefazolin IV) 1 Gm Vial 2 GM IV Q8H (Reported) Daptomycin (Daptomycin) 500 Mg Vial 700 MG IV QAM (Reported) Insulin Aspart (NovoLOG U-100 Pen) 100 Unit/Ml Insuln.pen 1-10 UNITS SQ ASDIRECTED (Reported) PER SLIDING SCALE Insulin Glargine (Lantus U100 Insulin Vial) 100 Unit/Ml Vial 15 UNIT SUBQ QAM ( Reported) TAKE LANTUS 15 UNITS IN AM AND 20 UNITS AT HS Insulin Glargine (Lantus U100 Insulin Vial) 100 Unit/Ml Vial 20 UNIT SUBQ HS ( Reported) TAKE LANTUS 15 UNITS IN AM AND 20 UNITS AT HS Levothyroxine (Levothyroxine) 200 Mcg Tablet 200 MCG PO QAM (Reported) TAKE LEVOTHYROXINE 200 MCG W/ 50 MCG TABLET (=250 MCG) TOTAL Levothyroxine (Levothyroxine) 50 Mcg Tablet 50 MCG PO QAM (Reported) TAKE LEVOTHYROXINE 200 MCG W/ 50 MCG TABLET (=250 MCG) TOTAL Lisinopril (Lisinopril) 20 Mg Tablet 20 MG PO QAM (Reported) Metoprolol Succinate ER (Metoprolol Succinate ER) 100 Mg Tab.er.24h 100 MG PO BID (Reported) Pantoprazole DR (Pantoprazole DR) 40 Mg Tablet.dr 40 MG PO BIDWM (Reported) Venlafaxine ER (Venlafaxine ER) 150 Mg Tab.er.24 150 MG PO QAM (Reported) As needed Cyclobenzaprine (Cyclobenzaprine) 10 Mg Tablet 10 MG PO TID PRN PRN Spasm ( Reported) Hydromorphone (Dilaudid) 2 Mg Tablet 2 MG PO q6 hrs PRN PRN For Pain Taper down as able. Prescribed by: CRISTIN BEAL DO Lorazepam (Ativan) 1 Mg Tablet 1 MG PO QID PRN PRN For Anxiety (Reported) Tramadol (Ultram) 50 Mg Tablet 50 MG PO Q4H PRN PRN For Mild Pain Prescribed by: GIO GEORGE DO Followup Plan Follow-up plan [facility]charge [facility] with [facility] to resume her antibiotic infusion. Follow-up with infectious disease as previously scheduled Follow-up with an ideal option for opiate withdrawal Follow-up with PCP within one week, sooner if condition worsens in anyway. Follow-up with cardiology in 1-3 days for pacemaker evaluation Discharge Diet: Diabetic Discharge Activity: Limited until seen by PCP Follow-up with PCP in: 1 week Time spent 50 minutes Cristin Beal DO Jun 09, 2016 11:29
== END 2016-06-09 12:38 | disposition home or self-care (01) | DRG 690 ==
LOC: SED 19:10 → PCC 22:27
PROVIDERS: ADMIT Family Medicine; ATTEND Family Medicine
PROC: 4A02XFZ Measurement of Cardiac Rhythm, External Approach (ICD-10-PCS; principal; 2016-06-06)
DX: N15.1 Renal and perinephric abscess (principal); J90 Pleural effusion, not elsewhere classified; E10.65 Type 1 diabetes mellitus with hyperglycemia; E83.42 Hypomagnesemia; F11.23 Opioid dependence with withdrawal; F43.10 Post-traumatic stress disorder, unspecified; E89.0 Postprocedural hypothyroidism; E05.00 Thyrotoxicosis with diffuse goiter without thyrotoxic crisis or storm; E86.0 Dehydration; R00.0 Tachycardia, unspecified; Z79.4 Long term (current) use of insulin; Z76.5 Malingerer [conscious simulation]; Z95.0 Presence of cardiac pacemaker; Z79.82 Long term (current) use of aspirin; Z90.49 Acquired absence of other specified parts of digestive tract

== ENCOUNTER 2016-06-18 16:05 | Inpatient (IN) | payer OTHER ==
[~2016-06-18] VITALS: Ht 162.6 cm; Wt 107.9 kg
[~2016-06-18 16:05] MED LIST changes: +CEFA1VIA3 IV; +DAPT500V2 IV; +HYDR2TAB27 PO
[2016-06-18 16:07] VITALS: BP 146/83; PULSE 125; RESP 18; O2SAT 100
[2016-06-18] MEDS ORDERED: Ondansetron 2 mg/mL 2 mL Inj ONE (16:26)
--- NOTE | 2016-06-18 16:28 | ED.REPORT ---
HPI-General Illness Date of Service Jun 18, 2016 ED Provider: Ludin Thao MD The patient is a 36 year old female with history of diabetes mellitus type I, right kidney abscess followed by Dr. Ambrose, Grave's disease, SVT s/p ablation and pacemaker placement, anxiety, and medication noncompliance, who presents to the emergency department complaining of "stabbing" right lateral lower abdominal pain that began yesterday afternoon. Last night she started feeling "hot and sweaty." This morning when she woke up she felt nauseous and has had several episodes of vomiting since. Her blood sugars have recently been elevated. She was recently hospitalized from May 20-June 04 after she was diagnosed with the kidney abscess. She was hospitalized again from June 05- . She was discharged home about 1 week ago. She is getting IV antibiotics at home for the kidney abscess. Nursing Notes Stated Complaint: VOMITING, ABDOMINAL PAIN Chief Complaint: Female Abdominal Pain Nursing Notes Reviewed: Yes Allergies: Coded Allergies: amoxicillin (Verified Allergy, Severe, SHORTNESS OF BREATH, 06/18/16) Sulfa (Sulfonamide Antibiotics) (Verified Allergy, Intermediate, RASH, ) adhesive tape (Verified Allergy, Intermediate, REDNESS, 06/18/16) promethazine (Verified Allergy, Intermediate, SIDE EFFECTS JITTERY, ) oxycodone (Verified Adverse Reaction, Intermediate, SIDE EFFECT HALLUCINATIONS AND VOMITING, 06/18/16) Scheduled Amitriptyline (Amitriptyline) 25 Mg Tab 50-100 MG PO HS Aspirin Chew (Aspirin Chew) 81 Mg Chew 81 MG PO QAM Atorvastatin (Lipitor) 80 Mg Tablet 80 MG PO HS Cefazolin Sodium (Cefazolin IV) 1 Gm Vial 2 GM IV Q8H Daptomycin (Daptomycin) 500 Mg Vial 700 MG IV QAM Insulin Aspart (NovoLOG U-100 Pen) 100 Unit/Ml Insuln.pen 1-10 UNITS SQ ASDIRECTED PER SLIDING SCALE Insulin Glargine (Lantus U100 Insulin Vial) 100 Unit/Ml Vial 15 UNIT SUBQ QAM TAKE LANTUS 15 UNITS IN AM AND 20 UNITS AT HS Insulin Glargine (Lantus U100 Insulin Vial) 100 Unit/Ml Vial 20 UNIT SUBQ HS TAKE LANTUS 15 UNITS IN AM AND 20 UNITS AT HS Levothyroxine (Levothyroxine) 200 Mcg Tablet 200 MCG PO QAM TAKE LEVOTHYROXINE 200 MCG W/ 50 MCG TABLET (=250 MCG) TOTAL Levothyroxine (Levothyroxine) 50 Mcg Tablet 50 MCG PO QAM TAKE LEVOTHYROXINE 200 MCG W/ 50 MCG TABLET (=250 MCG) TOTAL Lisinopril (Lisinopril) 20 Mg Tablet 20 MG PO QAM Metoprolol Succinate ER (Metoprolol Succinate ER) 100 Mg Tab.er.24h 100 MG PO BID Pantoprazole DR (Pantoprazole DR) 40 Mg Tablet.dr 40 MG PO BIDWM Venlafaxine ER (Venlafaxine ER) 150 Mg Tab.er.24 150 MG PO QAM Scheduled PRN Cyclobenzaprine (Cyclobenzaprine) 10 Mg Tablet 10 MG PO TID PRN PRN Spasm Hydromorphone (Dilaudid) 2 Mg Tablet 2 MG PO q6 hrs PRN PRN For Pain Taper down as able. Lorazepam (Ativan) 1 Mg Tablet 1 MG PO QID PRN PRN For Anxiety Tramadol (Ultram) 50 Mg Tablet 50 MG PO Q4H PRN PRN For Mild Pain General Time Seen by MD: 16:14 Chief Complaint Abdominal pain Hx Obtained From: Patient Arrived By: Walk-in Sudden in Onset?: Yes Onset Occurred: Yesterday Symptom Duration: Since onset Location: : Abdomen: Back Quality: Stabbing Severity: Current: Moderate Severity: Maximum: Severe Recent Healthcare: Recent doctor visit, Recent hospitalization Similar Sx Previous: Yes Past Medical History Past Medical History Type I diabetes Graves' disease 1991 PTSD History of medication noncompliance SVT Heart Block Anxiety Uterine fibroids Hiatal hernia Renal abscess Past Surgical History Cholecystectomy Partial thyroidectomy Right oopherectomy Right abdominal hernia repair with appendectomy SVT ablation on 03/26/16 Pacemaker insertion 03/27/16 for complete heart block Pacemaker replacement 06/2016 Right percutaneous nephrostomy Left foot surgery Family History Father with type II diabetes currently on dialysis. Mother had knee problems half brother had type I diabetes and at age 33 due to possible hypoglycemia Smoking History Never Smoker Social History Alcohol Use: Denies alcohol use Drug Use: Denies drug use Other Social History: Good social support Ambulatory Status Independent Review of Systems Full Review of Systems Constitutional: Reports: Fever (subjective) GI: Reports: Abdominal pain, Nausea, Vomiting Female: Reports: Flank pain Musculoskeletal: Reports: Back pain Skin: Reports Diaphoresis Complete sys rev & neg: except as marked. Physical Exam Vital Signs Vital Signs Date Time Temp Pulse Resp B/P Pulse Ox O2 Delivery O2 Flow Rate FiO2 06/18/16 18:20 118 20 146/67 100 Room Air 06/18/16 17:01 115 20 153/72 97 Room Air 06/18/16 16:07 36.7 125 18 146/83 100 Room Air Initial VS: Reviewed Head / Eyes: Atraumatic, Normocephalic, PERRL Neck: Supple, Non-tender, Full range of motion Abdomen / GI: Soft, Non-tender, No guarding, No rebound, No distention Extremities: Vascular intact, Neuro intact Neurologic: Alert, Oriented, Nonfocal Psychiatric: Mood/affect normal, Behavior normal, Normal thought content General/Constitutional: Awake, Alert ENT: Airway patent Mouth: Positive: Mucous membranes dry Respiratory / Chest: Breath sounds NL, Breath sounds = bilat, No respiratory distress There is a well healed surgical incision to her left anterior chest wall where her pacemaker was previously removed. There is an additional surgical incision to her right anterior chest wall where she has the new pacemaker. The pacemaker is palpable under her skin. There is no surrounding redness, erythema, fluctuance, or induration. Cardiovascular: Heart rate NL, Regular rhythm, Heart sounds NL, No murmurs, No rubs, Cap refill not delayed, Peripheral circulation NL Back: No midline vertebral tend Flank / Spine / Paraspinal: Positive: Flank tender R Upper Extremities Upper Extremity / MS: Neurologic intact, Vascular intact PICC line present in the left proximal arm without redness, warmth, or signs of infection. Skin: Warm, Dry Rash / Lesion Notes: Fungal rash about her right axilla. Interpretation & Diagnostics Lab Results Interpretation Result Diagram: 06/18/16 1620 06/18/16 1620 Test 06/18/16 16:20 06/18/16 16:43 06/18/16 17:02 White Blood Count 8.2th/mm3 (3.8-10.1) Red Blood Count 4.11mil/mm3 (3.90-5.20) Hemoglobin 10.8g/dL (12.0-15.6) Hematocrit 35.9% (35.0-46.0) Mean Corpuscular Volume 87.3fL (81-100) Mean Corpuscular Hemoglobin 26.3pg (27.0-35.0) Mean Corpuscular Hemoglobin Concent 30.1% (32.0-37.0) Red Cell Distribution Width 16.9% (12.3-15.4) Platelet Count 237bil/L (150-400) Neutrophils (%) (Auto) 76.2% (40-74) Lymphocytes (%) (Auto) 12.1% (14-46) Monocytes (%) (Auto) 9.9% (4-12) Eosinophils (%) (Auto) 1.0% (0-5) Basophils (%) (Auto) 0.6% (0-3) Sodium Level 133mEq/L (134-144) Potassium Level 4.3mEq/L (3.5-5.2) Chloride Level 89mEq/L (97-108) Carbon Dioxide Level 15mmol/L (18-29) Blood Urea Nitrogen 7mg/dL (6-20) Creatinine 0.63mg/dL (0.57-1.00) Estimat Glomerular Filtration Rate 151mL/min (>59) Glucose Level 542mg/dL (60-99) Calcium Level 8.3mg/dL (8.5-10.1) Total Bilirubin 0.6mg/dL (0.0-1.2) Aspartate Amino Transf (AST/SGOT) 12U/L (0-50) Alanine Aminotransferase (ALT/SGPT) 6U/L (0-32) Alkaline Phosphatase 95U/L (25-150) Troponin T < 0.010ug/L (0.0-0.011) Total Protein 7.2g/dL (6.4-8.4) Albumin 3.4g/dL (3.4-5.0) Human Chorionic Gonadotropin, Qual Negative (Negative) Prothrombin Time 10.6sec (8.1-12.5) Prothromb Time International Ratio 0.99ratio Osmolality 315 (275-300) Phosphorus Level 3.0mg/dL (2.5-4.9) Magnesium Level 1.4mg/dL (1.6-2.6) Pro-B-Type Natriuretic Peptide 2608pg/mL (0-130) Ketones Large (Negative) Urine Ketones 80mg/dL (NEGATIVE) ECG Interpretation ECG Interpretation: Ventricular paced complexes at [address] elevation present though difficult to interpret given that she is in a paced rhythm When compared to prior dated 06/05/2016 there are no acute changes present Time: 18:23 Interpreted by: ED physician X-Ray Chest Interpretation Chest Xray Interpretation: IMPRESSION: No radiographic evidence for pneumonia. Dictated by: Víctor Jama M.D. on 06/18/2016 at 16:57 Interpretation / Wet Read by: Interpret - Radiologist CT Abd / Pelvis Interpretation IMPRESSION: Reducing pleural effusions bilaterally, simple in character and now small. Improving perirenal inflammatory change at the right kidney, and no hydronephrosis or nephrolithiasis is present. No intrarenal inflammatory process is not found. No abnormal fluid collection remains. Multiple uterine fibroids are again noted. Currently no definite acute disease is found. Dictated by: Abdiaziz Tenorio M.D. on 06/18/2016 at 17:59 Study type: Abdominal CT IV contrast Interpretation / Wet Read by: Interpret - Radiologist Re-Eval/Medical Decision Med Decision/Clinical Course The patient is a 36 year old female with history of diabetes mellitus type I, right kidney abscess followed by Dr. Ambrose, Grave's disease, SVT s/p ablation and pacemaker placement, anxiety, and medication noncompliance, who presents to the emergency department complaining of "stabbing" right lateral lower abdominal pain that began yesterday afternoon. Last night she started feeling "hot and sweaty." This morning when she woke up she felt nauseous and has had several episodes of vomiting since. Her blood sugars have recently been elevated. She was recently hospitalized from May 20-June 04 after she was diagnosed with the kidney abscess. She was hospitalized again from June 05- . She was discharged home about 1 week ago. She is getting IV antibiotics at home for the kidney abscess. Here in the emergency department the patient is tachycardic and appears dehydrated though she is hemodynamically stable and afebrile. Last abdomen CT on 06/05/16 showed a small right renal abscess that had not enlarged in size from prior. LABS: no leukocytosis, hct 35.9, Na 133, bicarb 15, lactate 2.5, K 4.3, anion gap is 19, BNP 2608, HCG negative, large serum and urine ketones VB.355/29/45.7/15.9/-8.1 CXR shows no pneumonia. CT shows no evidence of worsening infection or renal abscess. Overall presentation is at this time consistent with diabetic ketoacidosis. I see no evidence of an acute infectious insult and she is afebrile without leukocytosis. CT scan and chest x-ray are reassuring. She is already receiving antibiotics through her PICC line related to her renal abscess though I do not see any evidence of worsening infectious process. Urinalysis is pending at time of writing this note. The patient was aggressively fluid resuscitated with 3 L normal saline and ongoing fluids. She was started on an insulin drip and potassium was repleted according to DKA protocol. She is admitted to the [facility] unit for ongoing management of her diabetic ketoacidosis. At this time we have a low threshold to initiate broad-spectrum antibiotics that we have opted to withhold these as at this time we see no convincing evidence of a new acute infectious process. Source of Hx: Old records, Private physician Consultation : Referral / Consult Name: Gonzalez Arreaga MD Consulted With: Hospitalist Requested Call at: 18:11 Call Returned at: 18:27 Wood Preparation Supervisor: Will see patient, Agrees with eval, Agrees with plan, Accepts admit Counseled Regarding: Diagnosis, Lab results, Need for admission Discharge & Departure Primary Impression: DKA (diabetic ketoacidoses) Diabetes mellitus type: type 1 Diabetes mellitus complication detail: without coma Qualified Code: E10.10 - Type 1 diabetes mellitus with ketoacidosis without coma Additional Impressions: Right flank pain Type I diabetes mellitus Diabetes mellitus complication status: with unspecified complications Qualified Code: E10.8 - Type 1 diabetes mellitus with unspecified complications High anion gap metabolic acidosis Lactic acidosis Dehydration Disposition: ADMITTED TO HOSPITAL Discharge Condition All VS Reviewed: Yes Condition: Stable Referrals: Arielle Aguilar DO (PCP) Crit Care Except Billable Proc Time Spent: 105-134 minutes Services Performed: Patient management by me, Time spent at bedside, Reviewing test results, Reviewing imaging, Discussing patient care, Documentation in record, Time with fam/surrogate Scribe Attestation Portions of this note were transcribed by Sylvia Saini. I, Dr. Thao personally performed the history, physical exam and medical decision-making; I reviewed and confirmed the accuracy of the information in the transcribed note. Signed by: Moise Grady, 06/18/2016 at 1910. copies to: Arielle Aguilar Beck O MD Jun 18, 2016 16:28 Sylvia Saini Jun 18, 2016 16:33
[2016-06-18] MEDS ORDERED: 0.9% Sodium Chloride 1,000 ML IV ONE ×3 (16:35→18:10)
[2016-06-18] MEDS ORDERED: Ondansetron 2 mg/mL 2 mL Inj IVPUSH ONE (16:35)
[2016-06-18 16:44] LABS: BASOPHILS % (AUTO) 0.6 % (0-3); MONOCYTES % (AUTO) 9.9 % (4-12); Mean Corpuscular Hemoglobin 26.3 pg (27.0-35.0); Mean Corpuscular Volume 87.3 fL (81-100); NEUTROPHILS % (AUTO) 76.2 % (40-74); Platelet Count 237 bil/L (150-400)
[2016-06-18 16:57] LABS: INR 0.99 ratio
[2016-06-18] MEDS: HYDROmorphone 0.5 mg/0.5 mL iSecure Syringe IVPUSH SCH (17:00)
[2016-06-18 17:01] VITALS: BP 153/72; PULSE 115; RESP 20; O2SAT 97
--- NOTE | 2016-06-18 17:12 | DRSVH ---
PROCEDURE: X-RAY CHEST ONE VIEW, PORTABLE ([id number]) INDICATIONS: 36 year-old female with possible pneumonia. TECHNIQUE: One view of the chest was acquired. COMPARISON: [facility], CR, XR CHEST 1VW (PORTABLE), 06/05/2016, 19:35. [facility], CR, XR CHEST 2VW, 06/01/2016, 8:23. [facility], CR, XR CHEST 2VW, 05/28/2016, 6:40 . FINDINGS: Surgical changes and devices: Right chest wall dual chamber pacemaker is again noted. Left chest wall skin angelique have been removed. Left PICC is again noted, with tip in the upper superior vena cava. Lungs and pleura: No pleural effusions or pneumothorax. Lungs are clear. Mediastinum: Mediastinal contours appear normal. Heart size is normal. Bones and chest wall: No suspicious bony lesions. Overlying soft tissues appear unremarkable. IMPRESSION: No radiographic evidence for pneumonia. Dictated by: Víctor Jama M.D. on 06/18/2016 at 16:57 Approved by: Víctor Jama M.D. on 06/18/2016 at 16:58
[2016-06-18] MEDS ORDERED: Dextrose 5% 0.45% NaCl 1,000 ML IV PRN (17:16)
[2016-06-18] MEDS ORDERED: Dextrose 10% 1,000 ML IV PRN (17:16)
[2016-06-18 17:26] LABS: Magnesium 1.4 mg/dL (1.6-2.6)
--- NOTE | 2016-06-18 17:50 | ABG ---
DateTimeAnalyzed 17:47:00 -_ pH ____7.355 - 7.350 7.450 pCO2 ___29.3__ -mmHg 40.0 50.0 pO2 ___45.7__ -mmHg HCO3- ___15.9__ -mmol/L 20.0 24.0 ABE ___-8.1__ -mmol/L tHb ___10.4__ -g/dL O2Hb ___75.6__ -% COHb ____1.9__ -% MetHb ____1.0__ -% sO2 ___77.9__ -% FIO2 ___21.0__ -% Drawn By MT - Date/Time Notified____ 17:50:00 -_ Notified By Mt - Notified Whom Leroy - B 757 -mmHg tO2 ___11.0__ -Vol% Gonzalez test N/A -
--- NOTE | 2016-06-18 18:08 | DRSVH ---
PROCEDURE: CT ABDOMEN AND PELVIS WITH CONTRAST ([id number]) INDICATIONS: r flank pain. h/o renal abscess TECHNIQUE: After the administration of intravenous contrast, 5 mm thick sections acquired from the diaphragm to the symphysis. 5 mm coronal and sagittal reformats were acquired. For radiation dose reduction, the following was used: automated exposure control, adjustment of mA and/or kV according to patient siz e. COMPARISON: [facility], CR, XR CHEST 1VW (PORTABLE), 06/18/2016, 16:44. [facility], US, ABDOMEN LTD, 06/07/2016, 15:29. [facility], CT, CT ABD PELVIS W CON, 7, 21:01. FINDINGS: Image quality: Excellent. ABDOMEN: Lung bases: Lung bases are improving with only a slight degree of atelectasis adjacent to the signif icantly reduced bilateral pleural effusions that appear simple in character and now small bilaterally . Heart size is normal. Solid organs: Liver and spleen are normal in size and enhancement. Gallbladder has been previously resected. Biliary system is non dilated. Pancreas enhances normally. No adrenal nodules. Kidneys demonstrate normal size and enhancement, without hydronephrosis or nephrolithiasis, and the inflammat ory process at the anterior border of the anterior perirenal fascia has improved, reducing both in te real of transverse and AP dimension in the degree of immediate adjacent thickening of the fascial plan es. Mild residual is noted, no abnormal or drainable fluid collection is now seen.. Peritoneum and bowel: Bowel loops demonstrate normal wall thickness and caliber. No free fluid or a ir. Nodes and vessels: No retroperitoneal or mesenteric adenopathy by size criteria. Aorta and inferior vena cava are normal in size. Miscellaneous: No ventral hernias. PELVIS: Genitourinary: Bladder wall thickness is normal. Anteverted uterus with bilateral fibroids, within the upper and middle thirds of the uterus as was previously the case. Miscellaneous: No inguinal hernias or adenopathy. Bones: No suspicious bony lesions. No vertebral body compression fractures. IMPRESSION: Reducing pleural effusions bilaterally, simple in character and now small. Improving pe rirenal inflammatory change at the right kidney, and no hydronephrosis or nephrolithiasis is present. No intrarenal inflammatory process is not found. No abnormal fluid collection remains. Multiple u terine fibroids are again noted. Currently no definite acute disease is found. Dictated by: Abdiaziz Tenorio M.D. on 06/18/2016 at 17:59 Approved by: Abdiaziz Tenorio M.D. on 06/18/2016 at 18:06
[2016-06-18] MEDS: 0.9% NaCl + KCl 20 mEq/L 1,000 ML IV SCH (18:18)
[2016-06-18] MEDS: Insulin Human REGular Inj 100 UNIT in 0.9% Sodium Chloride-Pha MIX 100 ML IV SCH (18:19)
[2016-06-18 18:20] VITALS: BP 146/67; PULSE 118; RESP 20; O2SAT 100
--- NOTE | 2016-06-18 18:57 | PCM.HPMED ---
Subjective Date of Service Jun 18, 2016 Primary Provider: Admitting Physician: Gonzalez Arreaga MD Primary Care Physician: Arielle Aguilar DO Attending Physician: Gonzalez Arreaga MD Admit Status: From the Emergency Department, Full Admit, Admit to Yellow Team, Critical Care Chief Complaint: DKA, vomiting History of Present Illness: This is a 36-year-old female recently discharged with the right. Niferex or renal abscess. She was on home IV antibiotics including cefazolin and through yesterday and now daptomycin. She has had some progressive hyperglycemia since Friday. She wanted glucose of over [address] [facility] on a blood draw but notes that she had a failure of a needle earlier in the day. She developed recurrent right lower quadrant abdominal pain yesterday reminiscent of her previous kidney pain. Her glucose had been intermittently high over the weekend and then last night she developed heartburn which is progressive through the night. This morning she vomited about 12 times. She takes some somewhat up at 2 in the afternoon and then vomited 3 more times. She then came to the hospital. She did call Dr. Ambrose's office. No fevers or chills. She has over been having some night sweats. She also denies urinary symptoms such as hematuria or dysuria but has had some polyuria. In the ED she is afebrile, white count but does have DKA with positive ketones and anion gap. She was started on the DKA protocol. She denies any recent URI symptoms including rhinorrhea cough or sore throat. No chest pain or dyspnea. No diarrhea. Review of Systems: Review of systems otherwise reviewed and otherwise noncontributory except as noted in history of present illness Allergies Coded Allergies: amoxicillin (Verified Allergy, Severe, SHORTNESS OF BREATH, 06/18/16) Sulfa (Sulfonamide Antibiotics) (Verified Allergy, Intermediate, RASH, ) adhesive tape (Verified Allergy, Intermediate, REDNESS, 06/18/16) promethazine (Verified Allergy, Intermediate, SIDE EFFECTS JITTERY, ) oxycodone (Verified Adverse Reaction, Intermediate, SIDE EFFECT HALLUCINATIONS AND VOMITING, 06/18/16) Home Medications Amitriptyline (Amitriptyline) 25 Mg Tab 50-100 MG PO HS Aspirin Chew (Aspirin Chew) 81 Mg Chew 81 MG PO QAM Atorvastatin (Lipitor) 80 Mg Tablet 80 MG PO HS Cefazolin Sodium (Cefazolin IV) 1 Gm Vial 2 GM IV Q8H Daptomycin (Daptomycin) 500 Mg Vial 700 MG IV QAM Insulin Aspart (NovoLOG U-100 Pen) 100 Unit/Ml Insuln.pen 1-10 UNITS SQ ASDIRECTED PER SLIDING SCALE Insulin Glargine (Lantus U100 Insulin Vial) 100 Unit/Ml Vial 15 UNIT SUBQ QAM TAKE LANTUS 15 UNITS IN AM AND 20 UNITS AT HS Insulin Glargine (Lantus U100 Insulin Vial) 100 Unit/Ml Vial 20 UNIT SUBQ HS TAKE LANTUS 15 UNITS IN AM AND 20 UNITS AT HS Levothyroxine (Levothyroxine) 200 Mcg Tablet 200 MCG PO QAM TAKE LEVOTHYROXINE 200 MCG W/ 50 MCG TABLET (=250 MCG) TOTAL Levothyroxine (Levothyroxine) 50 Mcg Tablet 50 MCG PO QAM TAKE LEVOTHYROXINE 200 MCG W/ 50 MCG TABLET (=250 MCG) TOTAL Lisinopril (Lisinopril) 20 Mg Tablet 20 MG PO QAM Metoprolol Succinate ER (Metoprolol Succinate ER) 100 Mg Tab.er.24h 100 MG PO BID Pantoprazole DR (Pantoprazole DR) 40 Mg Tablet.dr 40 MG PO BIDWM Venlafaxine ER (Venlafaxine ER) 150 Mg Tab.er.24 150 MG PO QAM Scheduled PRN Cyclobenzaprine (Cyclobenzaprine) 10 Mg Tablet 10 MG PO TID PRN PRN Spasm Hydromorphone (Dilaudid) 2 Mg Tablet 2 MG PO q6 hrs PRN PRN For Pain Taper down as able. Lorazepam (Ativan) 1 Mg Tablet 1 MG PO QID PRN PRN For Anxiety Tramadol (Ultram) 50 Mg Tablet 50 MG PO Q4H PRN PRN For Mild Pain PMH 1. Diabetes mellitus Y 2. Recurrent DKA 3. Right perinephric abscess still on IV antibiotics 4. Graves' disease 5. PTSD. 6. History of medication noncompliance 7. PSVT 8. Pacemaker. Surgical History Is extensive and includes tonsillectomy, thyroidectomy, multiple ovarian cysts removals and oophorectomy on the right. Right inguinal hernia repair, appendectomy and bowel obstruction repair cholecystectomy. An exploratory laparotomy. Family History Positive for diabetes 1 and 2 Social History Occupation: non- Hx Alcohol Use: No Hx Substance Use: No Smoking Status: Never Smoker Living Arrangement: with Family Exam Vital Signs Vital Sign - Last Date Time Temp Pulse Resp B/P Pulse Ox O2 Delivery O2 Flow Rate FiO2 06/18/16 18:20 118 20 146/67 100 Room Air 06/18/16 16:07 36.7 Exam Oriented 3. No distress. Fluent speech. Normal affect. Normal skull. Normal nose and ears. Anicteric sclera, symmetric pupils Oropharynx is unremarkable, no facial droop. Neck is supple, normal thyroid. No adenopathy. Lungs are clear, normal effort rate. Heart is regular without murmur gallop or rub. Tachycardic. Abdomen soft, nondistended or tender. Except mild tenderness in the right upper quadrant with deep palpation. Extremities are free of pedal edema. Good radial and pedal pulses. Fast. Skin is free of rash, lesions. No petechiae or ecchymosis. Except she does have a erythematous rash in the right axilla for which she is receiving antifungal cream as well as below both breasts. Joints are grossly normal. Cranial nerves are grossly normal. Motor strength is normal in all extremities. Normal muscular tone. Lab and Diagnostics Result Diagram: 06/18/16 1620 06/18/16 1620 X-Rays, CTs and MRIs Chest x-ray is unremarkable CT scan of the abdomen: Reducing pleural effusions bilaterally, simple in character and now small. Improving perirenal inflammatory change at the right kidney, and no hydronephrosis or nephrolithiasis is present. No intrarenal inflammatory process is not found. No abnormal fluid collection remains. Multiple uterine fibroids are again noted. Currently no definite acute disease is found. Assessment & Plan 1. DKA, POA. The patient be placed on the DKA protocol with fluid resuscitation, an insulin drip, and electrolyte repletion. 2. Diabetes mellitus 1, POA. We will resume usual medications were transitioned her from the protocol to subcutaneous insulin 3. Resolving right perinephric abscess, POA. We will resume Cefazolin as it is suspicious this may have a role in her current course. We will also discuss with Dr. Ambrose tomorrow and obtain blood cultures tonight. 4. Volume depletion, POA. Plan is fluid resuscitation with the DKA protocol. 5. Lactic acidosis., POA. This is contributing to her metabolic acidosis. This likely relates to volume depletion and probable ongoing infection. Will follow this with fluid resuscitation measures. 6. Pacemaker, POA. The patient appears to have atrial pacing is tachycardic because her on depletion and general discomfort. Patient is full resuscitation, confirmed tonight Inpatient status with tonight's stay expected. Pain Evaluation: Adequate Pain Control Resuscitation Status: CPR: Attempt Resuscitation Time spent 35 minutes Gonzalez Arreaga MD Jun 18, 2016 18:57
[2016-06-18] MEDS ORDERED: CeFAZolin 2 Gm/50 mL D5W IV Premix IV ONE (19:10)
[2016-06-18 19:29] VITALS: BP 142/60; PULSE 120; RESP 17; O2SAT 100
[2016-06-18 20:30] VITALS: BP 139/86; PULSE 115; RESP 26; O2SAT 98
--- NOTE | 2016-06-18 20:30 | NUR ---
Admit: Pt admitted from ED to CCU. Transferred via gurney, able to ambulate to ccu bed without difficulty. Pt is a/o x3, able to make needs known. Vital signs stable. Pt denies pain at this time but was given dilaudid in ED with great effectiveness. Pt has existing left PICC which flushes well and has blood return. Will follow DKA protocol with frequent blood sugar checks. Will continue to monitor closely.
[2016-06-18] MEDS ORDERED: 0.9% Sodium Chloride 1,000 ML IV SCH (20:45)
[2016-06-18] MEDS: HYDROmorphone 0.5 mg/0.5 mL iSecure Syringe IVPUSH PRN (21:53)
[2016-06-19] VITALS (7 sets, daily range): BP systolic 121–147; BP diastolic 69–93; PULSE 106–113; RESP 18–24; O2SAT 98–100
[2016-06-19] MEDS: 0.9% NaCl + KCl 20 mEq/L 1,000 ML IV SCH ×5 (01:05→19:57)
[2016-06-19] MEDS: HYDROmorphone 0.5 mg/0.5 mL iSecure Syringe IVPUSH PRN ×4 (02:12→20:00)
[2016-06-19] MEDS ORDERED: CeFAZolin Inj 2 GM in IV Premix 1 EACH IV SCH (02:30)
[2016-06-19] MEDS: CeFAZolin Inj 2 GM in IV Premix 1 EACH IV SCH ×3 (05:49→16:40)
--- NOTE | 2016-06-19 06:36 | NUR ---
Pt is much improved. Insulin gtt running at 0.05 units/kg or 4.7 units/hr with last blood sugar of 121. D10 running at 93 ml/hr. NS with 20 meq KCL at 250 ml/hr. pt is a/o x 3. Ambulatory, up with SBA to [facility] [place]. Latest gap is 15. Pt still c/o right flank pain but improves with dilaudid 0.5 mg. HR is sinus tach. Pt does have pacer. Pt continues to have skin issues: under bilat. breasts, skin is very excoriated and red. Left abd fold also excoriated and red. Powder applied for comfort. All vital signs remain stable. RA sats are in the high 90's. Will continue to monitor pt's blood sugars closely.
[2016-06-19] MEDS ORDERED: Ondansetron 8 mg ODT Tablet PO PRN (08:15)
[2016-06-19] MEDS ORDERED: Magnesium Sulf 4 Gm/100 mL H2O 4 GM in IV Premix 1 EACH IV ONE (09:00)
[2016-06-19] MEDS: HYDROmorphone 0.5 mg/0.5 mL iSecure Syringe IVPUSH SCH (09:58)
[2016-06-19 11:02] LABS: Magnesium 1.1 mg/dL (1.6-2.6)
[2016-06-19] MEDS: Insulin Human REGular Inj 100 UNIT in 0.9% Sodium Chloride-Pha MIX 100 ML IV SCH (11:17)
--- NOTE | 2016-06-19 14:54 | NUR ---
Social Work: Screening Data: Pt is a 36 y/o female admitted for DKA, right flank pain. Pt's PCP is Dr Aguilar, pt's insurance is [employer]. EMR reviewed. Pt recently discharged form the hospital with [facility] for IVABX, DEATH CLAIM EXAMINER updated [facility] and gave them access to [facility]. DEATH CLAIM EXAMINER will continue to follow for possible HH need. DEATH CLAIM EXAMINER will continue to follow. Assessment: Pt who is independent at baseline. Plan: Pt will likely d/c home via POV with [facility] for IVABX, DEATH CLAIM EXAMINER will continue to follow for possible HH need. DAYLIN Coy
[2016-06-19 15:06] LABS: Magnesium 2.5 mg/dL (1.6-2.6)
--- NOTE | 2016-06-19 16:15 | PCM.PNMED ---
Subjective Date of Service Jun 19, 2016 Subjective 28-year-old long-standing type I diabetes mellitus and recent right perinephric abscess presents with DKA. Since she feels better today. She needs to have crampy right lower quadrant abdominal pain, which she attributes to her abscess. She denies missing any insulin doses prior to admission. Exam Vital Signs Vital Sign - Last Date Time Temp Pulse Resp B/P Pulse Ox O2 Delivery O2 Flow Rate FiO2 06/19/16 11:57 37.2 109 21 134/71 98 Room Air Intake and Output 06/18/16 06/18/16 06/19/16 Cumulative From/Thru 15:00 23:00 07:00 06/18/16 16:07 - 06/19/16 06:11 Intake Total 1990 ml 3514 ml 5504 ml Output Total 700 ml 700 ml Balance 1990 ml 2814 ml 4804 ml Intake IV Total 1990 ml 3514 ml 5504 ml Output Urine Total 700 ml 700 ml # Voids 1 1 2 # Bowel Movements 0 0 Exam General: Healthy-appearing, no acute distress HEENT: sclerae anicteric, oral mucosa moist Neck: no JVD Chest: clear to auscultation Cardiac: S1S2, no murmur Abdomen: BS normal, mild tenderness to palpate right lower quadrant and right CVA Extremities: No edema Neuro: A&O, cranial nerves symmetric, motor strength 5/5, coordination normal IVs and Medications Medications Reviewed: Medications were reviewed in detail Lab and Diagnostics Result Diagram: 06/18/16 1620 06/19/16 1425 X-Rays, CTs and MRIs Chest x-ray is unremarkable CT scan of the abdomen: Reducing pleural effusions bilaterally, simple in character and now small. Improving perirenal inflammatory change at the right kidney, and no hydronephrosis or nephrolithiasis is present. No intrarenal inflammatory process is not found. No abnormal fluid collection remains. Multiple uterine fibroids are again noted. Currently no definite acute disease is found. Additional Diagnostics VBG: DateTimeAnalyzed 17:47:00 -_ pH ____7.355 - 7.350 7.450 pCO2 ___29.3__ -mmHg 40.0 50.0 pO2 ___45.7__ -mmHg FIO2 ___21.0__ -% Assessment & Plan Acute DKA despite reported compliance with insulin therapy and stable ongoing treatment of a chronic infection. Acute, actively manage problems: #. DKA, POA. Anion gap 29 on admission. Lactic acid 2.5. Non significant acidemia by VBG. Course complicated by severe hypomagnesemia and hypo-kalemia. - Continue DKA protocol with fluid resuscitation, an insulin drip, and electrolyte repletion. - Okay to initiate oral intake, but do not check blood sugars within 2 hours of meal for purposes of adjusting insulin infusion rate - Return to basal bolus subcutaneous insulin in a.m. #. Resolving right perinephric abscess, POA. - No fever, leukocytosis or clear SIRS criteria - Continue prior regimen of daptomycin and cefazolin - Consult infectious disease tomorrow #. Tachycardia, POA. Probable volume depletion at time of admission. Received acute fluid resuscitation and normal saline at 1250 mL per hour. This shown persistent tachycardia 24 hour period. Possibly beta gloria withdrawal - Continue aggressive IV crystalloid - continue metoprolol #. Diabetes mellitus 1, POA. We will resume usual medications were transitioned her from the protocol to subcutaneous insulin in a.m. Resolving, stable and/or chronic problems: #. Volume depletion, POA. Plan is fluid resuscitation with the DKA protocol. #. Lactic acidosis., POA. This is contributing to her metabolic acidosis. This likely relates to volume depletion and probable ongoing infection. Will follow this with fluid resuscitation measures. #. Pacemaker, POA. The patient appears to have atrial pacing is tachycardic because her on depletion and general discomfort. Patient is full resuscitation. Disposition: Expect 1-2 more days of additional inpatient care Resuscitation Status: CPR: Attempt Resuscitation Time spent 35 minutes Russell Hardwick MD Jun 19, 2016 16:14
[2016-06-19] MEDS ORDERED: CeFAZolin 1,000 mg Inj IV SCH (16:20)
[2016-06-19] MEDS ORDERED: D5W1/2NS 1,000 mL IV PRN (16:30)
[2016-06-19] MEDS ORDERED: LORazepam 1 mg Tablet PO PRN (16:30)
[2016-06-19] MEDS ORDERED: MeTOProlol XL 50 mg ER24 Tablet PO ONE (16:30)
[2016-06-19] MEDS: MeTOProlol XL 50 mg ER24 Tablet PO SCH ×2 (19:00→20:30)
--- NOTE | 2016-06-19 19:17 | NUR ---
Nausea/metabolic/pain Pt nauseous, unable to keep down dinner and evening dose of metoprolol and PRN tramadol. Continued complaints of rt flank pain, rating 4/10. DKA insulin gtt infusing per orders. Dr Hardwick notified of change in patient status. Will continue to monitor.
[2016-06-19] MEDS: Ondansetron 2 mg/mL 2 mL Inj IVPUSH PRN (19:57)
[2016-06-19] MEDS: Pantoprazole 40 mg ER24 Tablet PO SCH (20:30)
[2016-06-19] MEDS: Nystatin 100,000 Unit/Gm 15 Gm Powder TOPICAL SCH (20:31)
--- NOTE | 2016-06-19 21:44 | CONS ---
[address] [address] CONSULTATION REPORT PATIENT: KAYLEE TURNER : 1980 MR#: [id number] ADMIT: 06/18/2016 JOB ID: [id number] DATE OF SERVICE: 06/19/[address] Farhan Hardwick for this consultation. REASON FOR CONSULTATION: Right perinephric abscess in a patient with a possible recent pacer infection leading to pacer explantation and reimplantation. HISTORY OF PRESENT ILLNESS: The patient is an extraordinarily complicated 36-year-old woman with type 1 diabetes, who is well known to me from two recent admissions. The patient developed a bacteremic MSSA, perinephric, right-sided abscess in mid May and was admitted to [facility] in [place]. At that time, she had positive blood cultures for MSSA as well as a large perinephric abscess. A drain was placed and cultures from the perinephric abscess ulcer grew an MSSA. Because she had a pacer installed in her left chest just a couple of months before the onset of this bacteremic infection, she was transferred back to [facility] for evaluation by Dr. Del Valle. Because of persistent concerns that her high-grade bacteremia with MSSA, as well as a more transient bacteremia with methicillin resistant Staph epi might have infected her pacer, her pacer system was removed from the left side and she was observed for several days with negative blood cultures before a new pacer was inserted on the right side. She was then discharged home on a combination of daptomycin which was aimed at the Staph epi as well as cefazolin aimed at the MSSA. She was sent home from that prolonged admission on June 04 with a plan to continue the cefazolin through June 17, and the daptomycin through June 24. Unfortunately, the patient developed weakness shortly after discharge, fell and was readmitted with diarrhea and malaise on June 05. We then admitted her back to the hospital and performed additional cultures and other studies as indicated before sending the patient home again on June 09 without any new positive cultures. The patient then went home with the same antibiotic continuation plan and did reasonably well for about nine days until yesterday when she developed progressively increasing blood sugars as well as some increasing right-sided abdominal and/or flank pain. She noticed her blood sugar was as high as 500 or more at times. This was associated on the , yesterday, with multiple episodes of vomiting which at times was almost intractable. She called my office where my medical i d sales wisely advised her to come to the ED with her high blood sugars, nausea and vomiting and she did. She was subsequently readmitted yesterday to the [facility] service. The patient states that her pacer sites, both the old pacer on the left and the new pacer on the right, have been essentially nontender, and she has had no problems with either of these. Additionally, she has had no dysuria, urgency, or frequency though she did, of course, have some of what she describes as right flank as well as lower abdominal pain yesterday. There have been no fevers, chills or sweats at any point and no significant headache. PAST MEDICAL HISTORY: 1. Type 1 diabetes, with hemoglobin A1c, is often very elevated. 2. PTSD. 3. Anxiety and depression. 4. Graves disease with treatment leading to hypothyroidism. 5. SVT diagnosed 2015. 6. History of ablation of SVT complicated by development of 3rd degree heart block with subsequent pacer placement in March 2016. 7. Possible infection of the pacer in May/June 2016 with subsequent removal of the spacer and reimplantation of a new pacer in June 2016. SOCIAL HISTORY: The patient lives on [address] with her disabled father. Patient does not smoke or drink. Recently, she has been working at [employer] but is lately unemployed. FAMILY HISTORY: Negative for tuberculosis in first and second-degree relatives. REVIEW OF SYSTEMS: The patient denied. Has no headache. She denies any new visual complaints. No sores in the mouth or sore throat. She has no pain at the site of either pacer incisions. She has a minimal cough which is not productive of anything and is mildly short of breath which is her chronic baseline. No substernal chest pain. She has had some pain both in the right lower quadrant as well as in the right flank which seems to have come back after being gone for a week or two. No pain per se in the midline back. She has had multiple episodes of nausea and vomiting including some right before I examined her this evening. No diarrhea. No pain with urination. No swelling or tenderness of any joint. No new skin rash. Her PICC line in her right upper extremity has been fine, by her report. Remainder of the review of systems negative. PHYSICAL EXAMINATION: Reveals an afebrile woman in no acute distress. Pulse 112, respiratory rate 18, blood pressure 122/87. She is saturating quite well on room air. Examination of the head reveals no trauma. Mental status is normal. She always appears a bit depressed and has a bit of a flat affect, but that has not changed. Eyes without conjunctivitis or scleral icterus. Nose normal. Oral cavity without thrush, hairy leukoplakia or pharyngitis. Neck is supple. No adenopathy noted. Right upper extremity PICC line seems benign. There is no swelling of the right upper extremity. Lungs clear to auscultation. Cardiac tones: Regular rate and rhythm without murmur. The pacer incisions on both right and left side of the chest are benign-appearing. There is no tenderness over the pacer pocket which is still extant on the right. The abdomen is soft and nontender without palpable organomegaly. There is some mild tenderness with palpation in the very deep right lower quadrant. There is no flank tenderness at this point. She does not have a Thomason. No synovitis of any joint. No skin rash. No significant peripheral edema. Her extremities are warm and well perfused, and she is neurologically intact. LABORATORIES: Include white count yesterday 8200 with mild left shift, 76% segs. Yesterday's glucose was 542, today she is down to about 120 on two measurements. Creatinine 0.48, magnesium 2.5. Lactic acid yesterday was 3.8. I do not see a repeat. Urinalysis was not done yesterday, interestingly, she did have positive ketones. Micro studies from yesterday include negative blood cultures. IMAGING: Done yesterday includes a chest x-ray which showed no infiltrate and a CT of the abdomen. The abdominal CT showed small pleural effusions which are better than they were on her last admission. There is diminished perirenal inflammatory change at the right kidney with no nephrolithiasis. No intrarenal inflammatory process is seen. No abnormal fluid collections. She does have uterine fibroids. No acute disease is found to explain her symptoms. IMPRESSION: This is an amazingly complex case of a younger woman with longstanding type 1 diabetes who developed 1/3 degree heart block after a supraventricular tachycardia ablation procedure back in March. She then required placement of a pacer which was followed by a bacteremic right perinephric infection with MSSA. Concerns about possible seeding of her recently placed pacer led to its removal and the placement of a new pacer system on the right side which was accomplished, and the patient successfully discharged. Unfortunately, she came back shortly thereafter for a couple days stay in early June without any clear diagnosis and then was discharged again on June 08 only to be readmitted yesterday with diabetic ketoacidosis. The precipitating cause of her diabetic ketoacidosis remains unclear to me, but I did not see any overt evidence of ongoing infection. The patient had a great deal of nausea and vomiting and perhaps gastroenteritis triggered her DKA. Of course, the opposite is also possible in that the nausea and vomiting may have been triggered by the DKA itself. I do not see any evidence for any ongoing staphylococcal bacteremia nor does either her old or new pacer site appear infected. RECOMMENDATIONS: 1. We can continue with both the cefazolin and daptomycin while she is here getting her DKA resolved, but I think she can eventually go home with a plan to go ahead and finish up the daptomycin on or about June 24. 2. Will probably continue with oral antibiotics following the cessation of the IV just to make absolutely certain that the perinephric abscess is completely gone for fear of having a recrudescent bacteremia and seeding her new pacer. 3. This case discussed at the bedside with the nurses as well as Dr. Farhan Hardwick.
[2016-06-20] VITALS (7 sets, daily range): BP systolic 115–141; BP diastolic 78–97; PULSE 102–118; RESP 18–23; O2SAT 98–100
[2016-06-20] MEDS: Ondansetron 2 mg/mL 2 mL Inj IVPUSH PRN ×4 (00:18→14:42)
[2016-06-20] MEDS: HYDROmorphone 0.5 mg/0.5 mL iSecure Syringe IVPUSH PRN ×4 (00:19→21:44)
[2016-06-20] MEDS: CeFAZolin Inj 2 GM in IV Premix 1 EACH IV SCH ×3 (00:59→16:44)
[2016-06-20] MEDS: 0.9% NaCl + KCl 20 mEq/L 1,000 ML IV SCH ×4 (00:59→17:37)
--- NOTE | 2016-06-20 04:44 | NUR ---
DKA/pain/Nausea On DKA protocol per orders, Anion Gap 15-18-17, Blood sugars ranging from 60 tp 130, NS 20 K @ 150, w D5/D10 per protocol, Gave 25 Ml D50 with blood sugar 60, Insulin Gtt: 0.05 U/Kg, D10 @ 93 for 3 hours running. C/O Pain Nausea, gave IV Zofran 4 Mg x 3 after 2 episodes of extreme emesis , sublingual Zofran not effective, Pain: IV Dilaudid x 3 0.5 Mg. Pt. has residual pain and itching at pacer sites Room air. Tele: Sinus Tach Addendum: 06/20/16 at 0544 by BRIAN CANADA RN pacer incision site CDI, some discomfort/itching.
[2016-06-20] MEDS: Pantoprazole 40 mg ER24 Tablet PO SCH (07:30)
[2016-06-20] MEDS: MeTOProlol XL 50 mg ER24 Tablet PO SCH ×2 (08:30→21:22)
[2016-06-20] MEDS ORDERED: DAPTOMYCIN 500 MG IV SCH (08:30)
[2016-06-20] MEDS: Nystatin 100,000 Unit/Gm 15 Gm Powder TOPICAL SCH ×2 (08:48→20:30)
--- NOTE | 2016-06-20 09:09 | PROG NOTE ---
[address] [address] PROGRESS NOTE PATIENT: KAYLEE TURNER : 1980 MR#: [id number] ADMIT: 06/18/2016 JOB ID: [id number] DATE: 06/20/2016 INFECTIOUS DISEASE FOLLOWUP NOTE: REASON FOR FOLLOWUP: Complex case of a patient with MSSA bacteremia secondary to right perinephric abscess following pacer placement. INTERVAL HISTORY: Overnight, the patient reports she has no fevers, chills, or sweats. She is having no significant respiratory difficulty or cough. She has no chest pain. She has had some continued nausea and has required antiemetic therapy. No diarrhea. She continues to have what she describes as right kidney pain, which is localized both to her right flank and the right lower quadrant of her abdomen. She states this pain has been present basically since she was diagnosed with a perinephric abscess, which was now five or six weeks ago. PHYSICAL EXAMINATION: Reveals an afebrile woman. Temp 37 degrees, pulse 112, respiratory rate 22, blood pressure 135/80. She is in no acute distress. Breathing comfortably on room air at 99% saturation, temp 37, pulse 111, respiratory rate 20, blood pressure 125/80. Eyes without conjunctival abnormality. Oral cavity negative. Neck negative. Lungs clear bilaterally. Cardiac tones: Regular rate and rhythm. Both pacer sites, the old one on the left and the new one on the right, are entirely benign. The patient does have a soft abdomen, which is tender in the extreme right lower quadrant. She also notes right flank pain. LABORATORIES: Include white count 8200 two days ago. It has not been repeated. Her creatinine today 0.45. Micro studies include two negative blood cultures from the . Recall that the abdominal CT done on admission showed that the perinephric abscess was almost gone. IMPRESSION: This patient was readmitted for the fourth time really in the past couple of months, this time with what appears to be straight forward diabetic ketoacidosis. The cause of this precipitous development of diabetic ketoacidosis remains unclear. Of course, we are concerned about the possibility of pacer infection or recrudescence of the perinephric infection but there seems to be no evidence for either one based on fever curve, white count, blood cultures, or imaging of the right renal area. Also perplexing in this patient is the continued right flank pain and right lower quadrant pain, given that we just got a CT scan, which shows very little going on in either of these areas. RECOMMENDATIONS: 1. Will continue with cefazolin and daptomycin for the time being with the plan for her to go home within the next few days presumably on daptomycin alone through June 24. 2. At the conclusion of her daptomycin on June 24, I would be inclined to switch the patient to oral Keflex 500 q.i.d. to be continued at least for a couple of weeks. We need to do everything possible to make sure the perinephric abscess has completely resolved, so there is no chance of recrudescence and seeding in the blood and possibly the new pacer with Staph aureus. 3. It may be reasonable to consult Urology with questions about her continued pain arising from what seems to be the kidney area. I am at a loss to explain why she would have so much pain so far after a successful drainage and treatment of her perinephric abscess and want to make sure there are no additional imaging or invasive studies that would be recommended by Urology while the patient is here in the hospital. 4. This case discussed in detail yesterday evening with Dr. Hardwick, and I plan to discuss with him again today.
[2016-06-20 09:16] LABS: Magnesium 1.8 mg/dL (1.6-2.6)
[2016-06-20] MEDS: Polyethylene Glycol (PEG) 17 Gm Powder PO SCH (09:20)
--- NOTE | 2016-06-20 09:52 | NUR ---
Remains on DKA insulin protocol. Denies nausea, but declines a.m. meds at this time, declines breakfast. C/o "spasm-like" flank pain, requesting IV Dilaudid, given with good effect.
[2016-06-20] MEDS: DAPTOmycin Inj 700 MG in 0.9% Sodium Chloride 50 ML IV SCH (11:17)
[2016-06-20] MEDS ORDERED: Sodium Chloride LOK Flush 10 mL Syringe IVFLUSH PRN ×2 (12:20)
--- NOTE | 2016-06-20 15:04 | NUR ---
Attempted PO analgesics with food, followed by a prompt emesis. Zofran administered, helpful. MD updated. Calcium level reported to MD, no replacement. Remains tachycardic, sleeping unless disturbed. Insulin infusion per DKA protocol, most likely to be discontinued/changed to SQ this evening. Has refused out of bed and a.m. care, a.m. meds except for analgesics. Transferred to [facility]/tele, room #2005, report to CLARA Johnson. No visitors, no inquiries.
[2016-06-20] MEDS ORDERED: ProchlorPERazine 5 mg/mL 2 mL Inj IVPUSH ONE ×2 (16:35→16:45)
--- NOTE | 2016-06-20 17:17 | PCM.PNMED ---
Subjective Date of Service Jun 20, 2016 Subjective 28-year-old long-standing type I diabetes mellitus and recent right perinephric abscess presents with DKA., Complicated by protracted nausea and vomiting. She has worsening nausea and vomiting, unable to take by mouth medications. Is also unable to advance diet and transition to subcutaneous insulin. Yesterday she described crampy right lower quadrant abdominal pain, which she attributes to her abscess. Today she describes a continuous right posterior flank pain with additional transient sharp crampy pains on right flank, not in right lower quadrant of abdomen. She has not had bowel movement in several days. She also describes swelling of her right forearm, acute onset today associated with mild diffuse pain. Both arm and flank pains are sufficient that she requests IV Dilaudid. Exam Vital Signs Vital Sign - Last Date Time Temp Pulse Resp B/P Pulse Ox O2 Delivery O2 Flow Rate FiO2 06/20/16 16:39 36.8 118 22 141/97 98 06/20/16 12:00 Room Air Intake and Output 06/19/16 06/19/16 06/20/16 Cumulative From/Thru 15:00 23:00 07:00 06/18/16 16:07 - 06/20/16 06:29 Intake Total 3628 ml 3494 ml 03736 ml Output Total 800 ml 1000 ml 2500 ml Balance 2828 ml 2494 ml 30770 ml Intake Oral 200 ml 200 ml 400 ml IV Total 3428 ml 3294 ml 03058 ml Output Urine Total 800 ml 1000 ml 2500 ml # Voids 2 # Bowel Movements 0 0 Exam General: Pale, mild distress HEENT: sclerae anicteric, oral mucosa moist Neck: no JVD Chest: clear to auscultation Cardiac: S1S2, no murmur Abdomen: BS normal, mild tenderness to palpate right lower quadrant and right CVA Extremities: Right arm with diffuse mild swelling, no palpable cord, mildly tender Neuro: A&O, cranial nerves symmetric, motor strength 5/5, coordination normal IVs and Medications Medications Reviewed: Medications were reviewed in detail Lab and Diagnostics Result Diagram: 06/18/16 1620 06/20/16 0830 X-Rays, CTs and MRIs Chest x-ray is unremarkable CT scan of the abdomen: Reducing pleural effusions bilaterally, simple in character and now small. Improving perirenal inflammatory change at the right kidney, and no hydronephrosis or nephrolithiasis is present. No intrarenal inflammatory process is not found. No abnormal fluid collection remains. Multiple uterine fibroids are again noted. Currently no definite acute disease is found. Additional Diagnostics VBG: DateTimeAnalyzed 17:47:00 -_ pH ____7.355 - 7.350 7.450 pCO2 ___29.3__ -mmHg 40.0 50.0 pO2 ___45.7__ -mmHg FIO2 ___21.0__ -% Assessment & Plan Acute DKA despite reported compliance with insulin therapy with hemoglobin A1c 9.2%, and recent prolonged antibiotics for right perinephric abscess. Acute, actively manage problems: #. DKA, POA. Anion gap 29 on admission. Lactic acid 2.5. Non significant acidemia by VBG. Course complicated by severe hypomagnesemia and hypo-kalemia. Anion gap is resolved to 14. - Continue IV insulin at present until able to take by mouth calories. Continue IV D5 solution. - Okay to initiate oral intake, if she is able to control nausea - Likely Return to basal bolus subcutaneous insulin in a.m. if able to take by mouth #. Nausea and vomiting, acute on chronic. She states that she has had more frequent nausea and vomiting over the past 2 months. She is on Protonix chronically but has no known upper GI pathology. - Aggressive antiemetic regimen with Zofran, lorazepam, prochlorperazine #. Right flank and abdomen pain, acute and chronic. Recent abdomen CT unremarkable, showing improved perinephric abscess. Crampy pain is likely either ureter spasm or bowel cramping due to constipation. Several medications prescribed empirically: Tamsulosin, hyoscyamine, ketorolac, polyethylene glycol. Nausea and vomiting are interfering with all efforts to try all these meds. She is reporting high pain levels and requesting IV Dilaudid, which is likely to worsen both ureter and bowel related motility dysfunction. - Avoid IV opioid medications, okay for by mouth tramadol - oral meds when she is able to take by mouth #. Resolving right perinephric abscess, POA. - No fever, leukocytosis or clear SIRS criteria - Continue prior regimen of daptomycin and cefazolin - Consult infectious disease tomorrow #. Right arm swelling, acute. - Check Doppler #. Tachycardia, POA. Probable volume depletion at time of admission. Received acute fluid resuscitation and normal saline at 1250 mL per hour. This shown persistent tachycardia 24 hour period. Possibly beta gloria withdrawal. Possible stress and pain related to sinus tachycardia. - Continue IV fluid - continue metoprolol - No need for telemetry #. Diabetes mellitus 1, POA. We will resume usual medications were transitioned her from the protocol to subcutaneous insulin in a.m. Resolving, stable and/or chronic problems: #. Volume depletion, POA. Plan is fluid resuscitation with the DKA protocol. #. Lactic acidosis., POA. This is contributing to her metabolic acidosis. This likely relates to volume depletion and probable ongoing infection. Will follow this with fluid resuscitation measures. #. Pacemaker, POA. The patient appears to have atrial pacing is tachycardic because her on depletion and general discomfort. Patient is full resuscitation. Disposition: Expect 1-2 more days of additional inpatient care Resuscitation Status: CPR: Attempt Resuscitation Time spent 45 minutes Russell Hardwick MD Jun 20, 2016 17:17
[2016-06-20] MEDS: Insulin Human REGular Inj 100 UNIT in 0.9% Sodium Chloride-Pha MIX 100 ML IV SCH (17:20)
--- NOTE | 2016-06-20 18:15 | NUR ---
GI/pain pt has had continued nausea and small emesis with retching. situation discussed with MD. instructions to try ativan for nausea and compazine for continued stomach upset. ativan 0.5mg given. pt reported slow moderate relief. Pt reported moderate pain of arm with moderate swelling noted as well as continued pain of right flank. MD in to discussed medication management with patient. Orders adjusted. Pt given Ketoralac for pain. with continued monitoring of effectiveness of ativan and ketoralac, noted patient sleeping with regular respirations prior to dosing compazine. MD inform, instructed to continue order when nausea returns. will continue to monitor.
[2016-06-20] MEDS: Pantoprazole 4 mg/mL 10 mL Inj IVPUSH SCH (21:21)
[2016-06-20] MEDS ORDERED: Insulin Human REGular Inj 100 UNIT in 0.9% Sodium Chloride-Pha MIX 100 ML IV SCH (22:19)
[2016-06-20] MEDS ORDERED: Dextrose 5% 0.45% NaCl 1,000 ML IV PRN (22:19)
[2016-06-21] VITALS (7 sets, daily range): BP systolic 103–129; BP diastolic 70–86; PULSE 98–109; RESP 16–20; O2SAT 98–100
[2016-06-21] MEDS: CeFAZolin Inj 2 GM in IV Premix 1 EACH IV SCH ×3 (00:27→16:02)
[2016-06-21] MEDS: 0.9% NaCl + KCl 20 mEq/L 1,000 ML IV SCH (02:04)
[2016-06-21] MEDS: Ondansetron 2 mg/mL 2 mL Inj IVPUSH PRN ×2 (02:30→10:58)
--- NOTE | 2016-06-21 06:28 | NUR ---
NOC PT has been awake most of the night as she remains on insulin gtt with non-DKA protocol. BG still have not been consistently in goal range of 100-180. PT is not eating anything except crackers. PT is still nauseous and was given compazine and zofran. ALso continues to c/o abdominal pain and RUE pain as well. PT had an US of her RUE last katherin which has not been read yet. HEr arm is swollen, warm and painful. Radial pulse is weak. PT was given dilaudid once and then alternates were used. V/S WNL. PT is up to BSC independently. Will CTM.
[2016-06-21] MEDS: Pantoprazole 4 mg/mL 10 mL Inj IVPUSH SCH ×2 (08:11→15:46)
[2016-06-21] MEDS: MeTOProlol XL 50 mg ER24 Tablet PO SCH ×2 (08:11→19:56)
[2016-06-21] MEDS: Polyethylene Glycol (PEG) 17 Gm Powder PO SCH (08:12)
[2016-06-21] MEDS: Insulin Human REGular 300 Unit/3 mL Inj SUBQ SCH ×3 (08:30→19:58)
[2016-06-21] MEDS: Nystatin 100,000 Unit/Gm 15 Gm Powder TOPICAL SCH ×2 (08:30→19:55)
[2016-06-21] MEDS: DAPTOmycin Inj 700 MG in 0.9% Sodium Chloride 50 ML IV SCH (09:29)
--- NOTE | 2016-06-21 09:48 | DRSVH ---
PROCEDURE: US VENOUS ARM DUPLEX UNILATERAL, RIGHT INDICATIONS: acute diffuse swelling TECHNIQUE: Real-time imaging, as well as color and pulse Doppler interrogation, was performed of the right upper extremity deep veins from the inferior neck to the antecubital fossa. COMPARISON: None. FINDINGS: Occlusive deep venous thrombus present involving the right subclavian and axillary veins. There also is clot present within the right brachial and basilic vein within the upper arm which als o is occlusive. Distally within the upper arm and forearm no venous thrombosis is seen. IMPRESSION: 1. Extensive occlusive deep venous thrombosis involving the right subclavian, axillary veins as well as the brachial and basilic veins within the upper arm. Dr. Hardwick given results by the heat pump installer at 0930 hrs. 06/21/2016. Dictated by: Farhan CAMPBELL Interpreted: Lauren Garcia MD on 06/21/2016 at 9:44 Transcribed by: BUCK on 06/21/2016 at 9:47 Approved by: Lauren Garcia MD, PhD on 06/21/2016 at 16:43
--- NOTE | 2016-06-21 10:25 | NUR ---
RD Diabetes diet education: Offered DM diet education. Pt refused to go over diet but was willing to take the handouts to review on her own time. Pt refused oupt referral as she lives in [place]. Pt has never been to [facility] in the past
[2016-06-21] MEDS: Insulin GLARgine 100 Unit/mL Syringe SUBQ SCH (10:43)
--- NOTE | 2016-06-21 10:53 | PROG NOTE ---
[address] [address] PROGRESS NOTE PATIENT: KAYLEE TURNER : 1980 MR#: [id number] ADMIT: 06/18/2016 JOB ID: [id number] DATE: 06/21/2016 REASON FOR FOLLOWUP: MSSA bacteremia, right perinephric abscess, pacer explantation and reimplantation, right upper extremity DVT. INTERVAL HISTORY: Overnight, the patient has continued to have some mild right flank pain as well as some right lower quadrant, almost pelvic pain. These have been persistent throughout her hospital stay. In general though she is feeling somewhat better as she has no fevers, chills, sweats or cough. She is able to eat and drink. She did note yesterday the sudden onset of swelling in her right arm which led to an ultrasound which showed that she has an extensive DVT. This is surprising and odd as her PICC is in the left arm and makes me wonder if this could be related to her pacer though it is not clear. PHYSICAL EXAMINATION: Reveals a smiling and much more comfortable young woman. Temperature 36.6, pulse 109, blood pressure 119/86, saturating 98% on room air. Obviously in no acute distress. Oral cavity negative. The incisions for both of the pacer sites are completely benign. Her lungs are relatively clear. Cardiac tones regular rate and rhythm. No new murmur. Abdomen is nontender except in the very furthest right lower quadrant location where there is some mild tenderness to palpation. She also has some right flank pain which persists. No skin rash noted. The right upper extremity is swollen as opposed to the left and this is new in the past 24 hours or so. LABORATORIES: Include a white count of 8200, 76% segs. Creatinine 0.5. Blood cultures from June 18 are negative. IMAGING: Includes a venous duplex study on the right which shows an extensive occlusive DVT involving the right subclavian and axillary veins, as well as the brachial and basilic veins in the right upper extremity. The abdominal CT was done previously and were reviewed in earlier notes but showed an improving inflammatory change in the perinephric space. IMPRESSION: This continues to be a vexing case. This patient initially had ablation which was complicated by the development of complete heart block, requiring pacer placement. She was then admitted in May at [facility] with Methicillin-sensitive Staphylococcus aureus bacteremia due to a perinephric abscess and transferred to this facility with a drain in place. After considerable discussion, her left-sided pacer, she had for a couple months, was explanted and after a period of negative blood cultures, reimplanted on the right side. She was sent home but has been readmitted two additional time, this time with diabetic ketoacidosis. She is still continuing with her cefazolin and daptomycin therapy which are slated in next week with a possible transition to oral therapy for any residual perinephric abscess. Yesterday she developed sudden unexplained swelling in her right upper extremity. RECOMMENDATIONS: 1. I have discussed the case in detail with Dr. Del Valle of the electrophysiology division. He recommends three months of anticoagulation with one of the novel agents. 2. We will continue with the daptomycin and cefazolin though the cefazolin can probably be discontinued about any time and when the patient goes home, she will just be on daptomycin until the middle of next week. 3. Following the ending of the daptomycin, I would consider an oral antibiotic for additional coverage of her bacteremia and perinephric abscess. Even though we have treated it for a very long period of time, we want to make absolutely certain she does not become bacteremic again. Reasonable oral agent here might be doxycycline given her history of allergies to AMOXICILLIN and SULFA drugs. 4. We will continue to follow this complex patient with you here in the hospital.
[2016-06-21] MEDS: HYDROmorphone 0.5 mg/0.5 mL iSecure Syringe IVPUSH PRN (12:53)
[2016-06-21] MEDS ORDERED: Insulin LISPRO 300 Unit/3 mL Inj SUBQ ONE ×2 (13:50→15:55)
--- NOTE | 2016-06-21 16:00 | NUR ---
Social Work: Continued Discharge Planning D: Pt discussed in am rounds. Pt is not medically stable for discharge. VETERINARY INSPECTOR provided with a list of medications to verify with pt's insurance for OOP expense/copay. VETERINARY INSPECTOR faxed prescriptions to [facility]. They state that the pt has no copay and there is no pre-authorization for these medications. A: Pt has been I during admission. P: Anticipate pt will discharge home when medically stable with resumed [facility] for IV ABX treatment. VETERINARY INSPECTOR to continue to follow. DAYLIN Harris
--- NOTE | 2016-06-21 17:36 | NUR ---
Hyperglycemia Pt. was DC'D off the insulin drip this morning and Pt. began vomiting around noon. Pts. blood sugar was 404 and MD was made aware and MD ordered once 10UNITS of insulin lispro. At ~1300 Pts. blood sugar was 427 and MD was made aware again. MD ordered another 10UNITS. At ~ 1500 Pts. blood sugar was 385 and MD ordered another 10UNITS insulin lispro. Rechecked blood sugar at ~1720 and blood sugar is now 252, MD made aware. Pt. is no longer feeling nauseated like she did at noon.
[2016-06-21] MEDS ORDERED: Insulin Human NPH 100 Unit/mL 3 mL Inj SUBQ SCH (18:25)
--- NOTE | 2016-06-21 18:36 | PCM.PNMED ---
Subjective Date of Service Jun 21, 2016 Subjective 28-year-old long-standing type I diabetes mellitus and recent right perinephric abscess presents with DKA., Complicated by protracted nausea and vomiting. She reports improving nausea and vomiting, but nausea now appears to be triggered by hyperglycemia. She is taking fluids well and light snack. Her crampy right lower quadrant abdominal pain, which is less severe today. She also describes a continuous right posterior flank pain with additional transient sharp crampy pains on right flank, not in right lower quadrant of abdomen. She has not had bowel movement in several days. Her primary complaint is her right forearm pain related to new acute upper extremity DVT, unrelated to indwelling catheter. Both arm and flank pains are sufficient that she requests IV Dilaudid. I have counseled her to reduce her opioid analgesics which may be inducing bowel dismotility pain Exam Vital Signs Vital Sign - Last Date Time Temp Pulse Resp B/P Pulse Ox O2 Delivery O2 Flow Rate FiO2 06/21/16 18:14 36.0 98 17 103/72 99 Room Air Intake and Output 06/20/16 06/20/16 06/21/16 Cumulative From/Thru 15:00 23:00 07:00 06/18/16 16:07 - 06/21/16 06:05 Intake Total 3248 ml 2235 ml 72928 ml Output Total 1600 ml 900 ml 5000 ml Balance 1648 ml 1335 ml 66078 ml Intake Oral 220 ml 200 ml 820 ml IV Total 3028 ml 2035 ml 47818 ml Output Urine Total 1500 ml 900 ml 4900 ml Emesis 100 ml 100 ml # Voids 3 5 # Bowel Movements 0 Exam General: Pale, mild distress HEENT: sclerae anicteric, oral mucosa moist Neck: no JVD Chest: clear to auscultation Cardiac: S1S2, no murmur Abdomen: BS normal, mild tenderness to palpate right lower quadrant and right CVA Extremities: Right arm with diffuse swelling, no palpable cord, mildly tender Neuro: A&O, cranial nerves symmetric, motor strength 5/5, coordination normal IVs and Medications Medications Reviewed: Medications were reviewed in detail Lab and Diagnostics Result Diagram: 06/18/16 1620 06/21/16 0630 X-Rays, CTs and MRIs Chest x-ray is unremarkable CT scan of the abdomen: Reducing pleural effusions bilaterally, simple in character and now small. Improving perirenal inflammatory change at the right kidney, and no hydronephrosis or nephrolithiasis is present. No intrarenal inflammatory process is not found. No abnormal fluid collection remains. Multiple uterine fibroids are again noted. Currently no definite acute disease is found. PROCEDURE: US VENOUS ARM DUPLEX UNILATERAL, RIGHT IMPRESSION: 1. Extensive occlusive deep venous thrombosis involving the right subclavian, axillary veins as well as the brachial and basilic veins within the upper arm. Dictated by: Farhan MISHRA Interpreted: Lauren Garcia MD on 06/21/2016 at 9:44 . Additional Diagnostics VBG: DateTimeAnalyzed 17:47:00 -_ pH ____7.355 - 7.350 7.450 pCO2 ___29.3__ -mmHg 40.0 50.0 pO2 ___45.7__ -mmHg FIO2 ___21.0__ -% Assessment & Plan Acute DKA despite reported compliance with insulin therapy with hemoglobin A1c 9.2%, and recent prolonged antibiotics for right perinephric abscess. Acute, actively manage problems: #. DKA, POA. Anion gap 29 on admission. Lactic acid 2.5. Non significant acidemia by VBG. Course complicated by severe hypomagnesemia and hypo-kalemia. Anion gap is resolved to 14. - Discontinue IV D5 solution. - Encourage oral intake, if she is able to control nausea - Return to basal bolus subcutaneous insulin; needed extra boluses on 06/21 due to severe hyperglycemia - We will use every 6 hours regular insulin until she is taking normal meals, then change to lispro #. Nausea and vomiting, acute on chronic. She states that she has had more frequent nausea and vomiting over the past 2 months. She is on Protonix chronically but has no known upper GI pathology. - Aggressive antiemetic regimen with Zofran, lorazepam, prochlorperazine #. Right flank and abdomen pain, acute and chronic. Recent abdomen CT unremarkable, showing improved perinephric abscess. Crampy pain is likely either ureter spasm or bowel cramping due to constipation. Several medications prescribed empirically: Tamsulosin, hyoscyamine, ketorolac, polyethylene glycol. Nausea and vomiting are interfering with all efforts to try all these meds. She is reporting high pain levels and requesting IV Dilaudid, which is likely to worsen both ureter and bowel related motility dysfunction. - Avoid IV opioid medications, okay for by mouth tramadol - oral meds when she is able to take by mouth #. Right upper extremity DVT, acute. Not present on admission. - Therapeutic Lovenox - Insurance coverage is adequate for DOA sees at time of discharge #. Resolving right perinephric abscess, POA. - No fever, leukocytosis or clear SIRS criteria - Continue prior regimen of daptomycin and cefazolin - Consult infectious disease tomorrow #. Tachycardia, POA. Probable volume depletion at time of admission. Received acute fluid resuscitation and normal saline at 1250 mL per hour. This shown persistent tachycardia 24 hour period. Possibly beta gloria withdrawal. Possible stress and pain related to sinus tachycardia. - Encourage oral hydration - continue metoprolol - No need for telemetry Resolving, stable and/or chronic problems: #. Volume depletion, POA. Plan is fluid resuscitation with the DKA protocol. #. Lactic acidosis., POA. This is contributing to her metabolic acidosis. This likely relates to volume depletion and probable ongoing infection. Will follow this with fluid resuscitation measures. #. Pacemaker, POA. The patient appears to have atrial pacing is tachycardic because her on depletion and general discomfort. Patient is full resuscitation. Disposition: Expect 1-2 more days of additional inpatient care Pain Evaluation: Pain not Controlled VTE Prophylaxis: Other (therapeutic Lovenox.) Resuscitation Status: CPR: Attempt Resuscitation Time spent 45 minutes Russell Hardwick MD Jun 21, 2016 18:36
[2016-06-21] MEDS ORDERED: Insulin GLARgine 100 Unit/mL Syringe SUBQ SCH (21:00)
[2016-06-22 01:27] VITALS: BP 119/83; PULSE 100; RESP 20; O2SAT 100
[2016-06-22] MEDS: CeFAZolin Inj 2 GM in IV Premix 1 EACH IV SCH ×3 (01:32→17:49)
[2016-06-22] MEDS: HYDROmorphone 0.5 mg/0.5 mL iSecure Syringe IVPUSH PRN (01:45)
--- NOTE | 2016-06-22 01:50 | NUR ---
Hypoglycemia Patient put call light on at 0140 and reported feeling generally unwell. Vital signs within normal limits, SpO2 100% on room air. BG 67. [place] juice and saltines provided. Continue to monitor. Addendum: 06/22/16 at 0205 by NIKI VERMA RN Repeat blood glucose of 90.
[2016-06-22] MEDS: Insulin Human REGular 300 Unit/3 mL Inj SUBQ SCH ×5 (02:30→21:46)
[2016-06-22 04:38] VITALS: BP 105/79; PULSE 106; RESP 28; O2SAT 100
--- NOTE | 2016-06-22 04:51 | NUR ---
Anxiety Patient put her call light on at 0445 and reported that she woke from sleep feeling "very anxious" and unable to catch her breath. Respiratory rate 28, SpO2 100% on room air. All other vital signs were within parameters. Ativan 1mg PO given for anxiety. Continue to monitor. Addendum: 06/22/16 at 0535 by NIKI VERMA RN Rechecked patient at 0500 and 0530; sleeping.
--- NOTE | 2016-06-22 06:35 | NUR ---
Home Med Bottle INSTRUMENT PROCESSING TECH reported finding an empty home medication bottle in patient's trash when she was completing her I&Os. Empty bottle was labeled for shernaveed. Patient sleeping. Med bottle bagged and placed in patient's med drawer for reference if needed. Addendum: 06/22/16 at 0643 by NIKI VERMA RN Day shift charge nurse aware of situation.
[2016-06-22 07:33] VITALS: BP 113/77; PULSE 95; RESP 28; O2SAT 98
[2016-06-22] MEDS: Polyethylene Glycol (PEG) 17 Gm Powder PO SCH (07:55)
[2016-06-22] MEDS: Pantoprazole 4 mg/mL 10 mL Inj IVPUSH SCH ×2 (07:55→17:10)
[2016-06-22] MEDS: Nystatin 100,000 Unit/Gm 15 Gm Powder TOPICAL SCH ×2 (07:57→20:21)
[2016-06-22] MEDS: Insulin GLARgine 100 Unit/mL Syringe SUBQ SCH (07:57)
[2016-06-22] MEDS: MeTOProlol XL 50 mg ER24 Tablet PO SCH ×2 (08:30→20:21)
[2016-06-22] MEDS: DAPTOmycin Inj 700 MG in 0.9% Sodium Chloride 50 ML IV SCH (09:58)
[2016-06-22] MEDS ORDERED: ProchlorPERazine 5 mg/mL 2 mL Inj IVPUSH PRN (10:45)
[2016-06-22 13:23] VITALS: BP 135/101; PULSE 99; RESP 16; O2SAT 99
--- NOTE | 2016-06-22 15:13 | PCM.PNMED ---
Subjective Date of Service Jun 22, 2016 Subjective 28-year-old long-standing type I diabetes mellitus and recent right perinephric abscess presents with DKA., complicated by protracted nausea and vomiting, and opioid dependent pain. Continues nausea and vomiting, may be triggered by hyperglycemia. Right arm DVT as her main complaint pain complaint now. Requests IV Dilaudid for this. Also endorsing shortness of breath. Oxygen saturation on room air is normal. Her crampy right lower quadrant abdominal pain less severe today. Continuous right posterior flank pain with additional transient sharp crampy pains on right flank, not in right lower quadrant of abdomen. Bowel movement 1, small yesterday. I have counseled her to reduce her opioid analgesics which may be inducing bowel dysmotility pain. Very little progress so far in her nausea vomiting and migratory pain. Exam Vital Signs Vital Sign - Last Date Time Temp Pulse Resp B/P Pulse Ox O2 Delivery O2 Flow Rate FiO2 06/22/16 13:23 36.0 99 16 135/101 99 Room Air Intake and Output 06/21/16 06/21/16 06/22/16 Cumulative From/Thru 15:00 23:00 07:00 06/18/16 16:07 - 06/22/16 06:54 Intake Total 890 ml 800 ml 17979 ml Output Total 700 ml 5700 ml Balance 890 ml 100 ml 06511 ml Intake Oral 880 ml 720 ml 2420 ml IV Total 10 ml 80 ml 71408 ml Output Urine Total 700 ml 5600 ml Emesis 100 ml # Voids 4 9 # Bowel Movements 0 Exam General: Pale, nauseated with distress HEENT: sclerae anicteric, oral mucosa moist Neck: no JVD Chest: clear to auscultation Cardiac: S1S2, no murmur Abdomen: BS normal, active emesis at time of exam, difficult to palpate Extremities: Right arm with diffuse swelling, tender Neuro: A&O, cranial nerves symmetric, motor strength and coordination normal IVs and Medications Medications Reviewed: Medications were reviewed in detail Lab and Diagnostics Result Diagram: 06/18/16 1620 06/21/16 0630 X-Rays, CTs and MRIs Chest x-ray is unremarkable CT scan of the abdomen: Reducing pleural effusions bilaterally, simple in character and now small. Improving perirenal inflammatory change at the right kidney, and no hydronephrosis or nephrolithiasis is present. No intrarenal inflammatory process is not found. No abnormal fluid collection remains. Multiple uterine fibroids are again noted. Currently no definite acute disease is found. PROCEDURE: US VENOUS ARM DUPLEX UNILATERAL, RIGHT IMPRESSION: 1. Extensive occlusive deep venous thrombosis involving the right subclavian, axillary veins as well as the brachial and basilic veins within the upper arm. Dictated by: Farhan Barrera RRA Interpreted: Lauren Garcia MD on 06/21/2016 at 9:44 . Assessment & Plan Acute DKA despite reported compliance with insulin therapy with hemoglobin A1c 9.2%, and recent prolonged antibiotics for right perinephric abscess. Acute, actively manage problems: #. Right upper extremity DVT, acute. Not present on admission. - Therapeutic Lovenox - Insurance coverage is adequate for DOA sees at time of discharge #. Dyspnea without hypoxemia, not present on admission. Etiology unclear. Chest x-ray was negative on admission she has no infectious symptoms. She is being treated for thromboembolic disease. - Monitor oxygen saturation - Continue therapeutic Lovenox for RUE DVT, possibly associated PE #. Nausea and vomiting, acute on chronic. She states that she has had more frequent nausea and vomiting over the past 2 months. She is on Protonix chronically but has no known upper GI pathology. Nausea may be pain related, but her pain complaint has migrated from flank to abdomen to arm with not much difference and nausea overall. - Aggressive antiemetic regimen with Zofran, lorazepam, prochlorperazine - Continue maintenance fluids until taking by mouth well #. Right flank and abdomen pain, acute and chronic. Recent abdomen CT unremarkable, showing improved perinephric abscess. Crampy pain is likely either ureter spasm or bowel cramping due to constipation. Several medications prescribed empirically: Tamsulosin, hyoscyamine, ketorolac, polyethylene glycol. Nausea and vomiting are interfering with all efforts to try all these meds. She is reporting high pain levels and requesting IV Dilaudid, which is likely to worsen both ureter and bowel related motility dysfunction. - Avoid IV opioid medications, okay for by mouth tramadol - oral meds when she is able to take by mouth #. Acute pain. Patient requests parenteral opioid analgesics for DVT pain. Abdomen likely experiencing hypomotility due to opioid analgesics, possibly contributing to nausea vomiting and abdomen pain. Counseled patient that we will not use parenteral opioids. When she resumes by mouth she may have by mouth tramadol. - IV ketorolac - Nonpharmacologic measures - Avoid inducing iatrogenic opioid dependence #. Diabetes mellitus, type I. Hyperglycemia uncontrolled. We discontinued IV drip and resume Lantus, initially with poor control. Her target dose of 15, 20 daily she was mildly hypoglycemic overnight. Still with marked hyperglycemia during the day. She appears to be much more symptomatic when glucose is greater than 300. - Reduce Lantus to 15 units twice a day, morning and bedtime - Every 4 hours while awake hours Regular Insulin correctional scale #. Sinus Tachycardia, POA. Probable volume depletion at time of admission. Received acute fluid resuscitation and normal saline at 1250 mL per hour. This shown persistent tachycardia 24 hour period. Possible stress and pain related to sinus tachycardia. - Encourage oral hydration - continue metoprolol Resolving, stable and/or chronic problems: #. DKA, POA. Anion gap 29 on admission. Lactic acid 2.5. Non significant acidemia by VBG. Course complicated by severe hypomagnesemia and hypo-kalemia. Anion gap is resolved to 14. - Discontinue IV D5 solution. - Encourage oral intake, if she is able to control nausea - Return to basal bolus subcutaneous insulin; needed extra boluses on 06/21 due to severe hyperglycemia #. Lactic acidosis., POA. This is contributing to her metabolic acidosis. This likely relates to volume depletion and probable ongoing infection. Will follow this with fluid resuscitation measures. #. Resolving right perinephric abscess, POA. - No fever, leukocytosis or clear SIRS criteria - Continue prior regimen of daptomycin and cefazolin - Infectious disease consult following #. Pacemaker, POA. The patient appears to have atrial pacing is tachycardic because her on depletion and general discomfort. Patient is full resuscitation. Disposition: Expect 1-2 more days of additional inpatient care Pain Evaluation: Pain not Controlled VTE Prophylaxis: Other (therapeutic Lovenox.) Resuscitation Status: CPR: Attempt Resuscitation Time spent 40 minutes Russell Hardwick MD Jun 22, 2016 15:12
[2016-06-22 16:57] VITALS: BP 158/104; PULSE 103; RESP 24; O2SAT 97
[2016-06-22] MEDS: D5 0.45% NaCl + KCl 20 mEq/L 1,000 ML IV SCH (17:14)
--- NOTE | 2016-06-22 18:12 | NUR ---
Chest Pain Patient c/o 08/10 chest pain, dyspnea. Patient hypertensive, BP elevated-systolic pressure 150s. HR 80-90s. RR32 SpO2 100% on RA. STAT EKG done. Results given to Dr. Hardwick. No new orders at this time. Patient given Toradol for pain per MD.
[2016-06-22 20:09] VITALS: BP 134/97; PULSE 108; RESP 18; O2SAT 97
[2016-06-22] MEDS ORDERED: Insulin GLARgine 100 Unit/mL Syringe SUBQ SCH (21:00)
--- NOTE | 2016-06-22 21:53 | NUR ---
Hypoglycemia Patient BG 55. Patient has D5 1/2 NS infusing at 75 ml/hour; recently had a bowl of chicken soup with 4 packages of saltine crackers. Bell juice given. Patient's purse at bedside. Patient admits having home meds in purse, but states that they are "only nausea medication and metoprolol;" patient denies using any home medications, including insulin, during her stay. Offered to have home meds taken to pharmacy for safekeeping. Patient refuses. Repeat blood sugar of 68. Additional crackers and orange juice given. Charge nurse aware. Addendum: 06/22/16 at 2228 by NIKI VERMA RN Repeat blood sugar of 76. Additional orange juice given. Addendum: 06/22/16 at 2305 by NIKI VERMA RN Repeat blood sugar of 106. Continue to monitor.
[2016-06-23 00:01] VITALS: BP 133/97; PULSE 107; RESP 22; O2SAT 99
[2016-06-23] MEDS: CeFAZolin Inj 2 GM in IV Premix 1 EACH IV SCH ×2 (00:46→13:07)
--- NOTE | 2016-06-23 01:15 | NUR ---
Pain Management Patient put production machine tender light to report 8/10 arm pain and pleuritic chest pain. Offered to bring patient the tramadol that was currently available on her MAY. Patient became tearful insisted that the tramadol does not work, although she had it earlier in the shift and reported a decrease in pain from 8/10 to 2/10. Patient stated that she did not believe it was fair that no more dilauded would be provided for her because she was having "breakthrough pain and that's what they give it to me for." Patient then began demanding that the hospitalist be paged because "the night doctor will give it to me" and "I need a one time dose to take it all away and put me to sleep." Administered tramadol and hyoscyamine per existing pain management orders and explained to patient that the night hospitalist would not be likely to change an existing treatment plan put in place by her primary doctors. Spoke with night hospitalist and verified that no further dilauded would be ordered. Continue to monitor. Addendum: 06/23/16 at 0139 by NIKI VERMA RN Patient appears to be asleep on re-check. Nurse entered the room to make adjustments to the IV pump and patient did not wake.
[2016-06-23 03:25] VITALS: BP 131/93; PULSE 100; RESP 20; O2SAT 100
[2016-06-23] MEDS: D5 0.45% NaCl + KCl 20 mEq/L 1,000 ML IV SCH (05:49)
[2016-06-23 08:20] VITALS: BP 133/50; PULSE 100; RESP 18
[2016-06-23] MEDS: Pantoprazole 4 mg/mL 10 mL Inj IVPUSH SCH (08:24)
[2016-06-23] MEDS: Insulin Human REGular 300 Unit/3 mL Inj SUBQ SCH ×2 (08:26→13:05)
[2016-06-23] MEDS: MeTOProlol XL 50 mg ER24 Tablet PO SCH (08:28)
[2016-06-23] MEDS: Insulin GLARgine 100 Unit/mL Syringe SUBQ SCH (08:29)
[2016-06-23] MEDS: Polyethylene Glycol (PEG) 17 Gm Powder PO SCH (08:30)
[2016-06-23] MEDS: DAPTOmycin Inj 700 MG in 0.9% Sodium Chloride 50 ML IV SCH (11:38)
[2016-06-23] MEDS: Nystatin 100,000 Unit/Gm 15 Gm Powder TOPICAL SCH (11:44)
--- NOTE | 2016-06-23 11:51 | NUR ---
Pain Pt asking for Dilaudid pain medication. Offered Tramadol 50mg PO. Pt started dry heaving, yelled she can not take oral pain medication. Offered her anti nausea, refused. Pt refused Tramadol. MD notified. Care continues.
[2016-06-23] MEDS: Ondansetron 2 mg/mL 2 mL Inj IVPUSH PRN (13:15)
[2016-06-23 14:17] VITALS: BP 119/87; PULSE 92; RESP 18; O2SAT 100
[2016-06-23] MEDS ORDERED: ONDA8TAB10 PO (15:09)
[2016-06-23] MEDS ORDERED: CEPH500C PO (15:09)
--- NOTE | 2016-06-23 15:21 | PCM.DIMED ---
Discharge Instructions Date of Service Jun 23, 2016 Dates of Hospitalization Jun 18, 2016 at 18:46 Discharge Diagnosis Discharge Diagnosis Diabetic ketoacidosis; intractable nausea and vomiting; chronic abdominal pain; right upper extremity deep vein thrombosis; noncardiac chest pain Diet Diabetic Activity No restrictions Call your provider Other (uncontrollable blood sugars, uncontrollable pain or anxiety attack) Patient Instructions Your right perinephric abscess is essentially healed. The intravenous antibiotics are discontinued. Dr. Ambrose would like you to take Keflex 4 times per day for the next 2 weeks. You are to see him in infectious disease clinic on 07/03/16. You may call his office to confirm this appointment. You have been counseled to discontinue opioid pain medications. You should expect some difficulty tolerating pain after stopping opioid painkillers, while your body rebuilds its ability to control pain. He successfully completed the physical withdrawal from opioids, but psychological dependence may continue for a while. We encourage you to make a permanent break with these medications which are likely to cause you difficulties in the long run. The pain of your right arm DVT should be controllable with ibuprofen 600-800 mg 3 or 4 times per day, as long as this does not upset your stomach. You should continue to elevate your arm as much as you can. You have had episodes of chest pain with shortness of breath. These are not due to cardiac or lung problems, but likely represent anxiety attacks. You should practice deep breathing and combing response to manage these symptoms. You seem to be experiencing anxiety and depression related to your severe medical illnesses recently. We strongly encourage you to pursue psychological health counseling which may help you restore your coping mechanisms. You should stay on your current insulin regimen. Please keep a record of blood sugars upon awakening in the morning, prior to the evening meal and at bedtime. You are encouraged to cut out sweetened beverages and carbohydrate snacks, and concentrate on healthy meals with large portions of vegetable, meat, fish, olive oil, nuts and cheese. You are referred to Dr. Hardwick in the endocrinology clinic, for further care of your type I diabetes. You will continue to take apixiban (Eliquis) for your right upper extremity deep vein thrombosis. You have a follow-up with Dr. Aguilar for management of this problem. You may follow-up with Dr. Del Valle, at your next scheduled appointment. Follow-up Provider: Arielle Aguilar DO Follow-up with PCP in: 1 week (for a posthospitalization follow-up appointment) Provider: Russell Hardwick MD Follow-up in: 3 weeks Mid-level Provider (F9): Denis Ambrose MD Follow-up with Mid-level in: Other (07/03/16) Russell Hardwick MD Jun 23, 2016 15:18
[2016-06-23] MEDS ORDERED: APIX5TAB PO (15:23)
--- NOTE | 2016-06-23 16:16 | NUR ---
Social Work Note: Discharge Data& Assessment: Per pt is medically ready for discharge. SW met with pt at bedside to confirm discharge plan and assess for any unmet needs. Pt expressed interest in outpt mental health services for extra support as these recent hospitalizations have been very overwhelming and has been causing more anxiety. SW provided information on [facility] and [facility] that service [facility] close to her home that accept her insurance. Pt also provided with crisis line number and other outpt mental health service information to references. Pt is excited to discharge home today and get back to her pets. Pt denies any immediate concerns with her anxiety and feels like it is under control at this time. Pt denies any other needs. Pt father transporting her home today. has discontinued her IV abx. SW notified home infusion company [facility]. No other discharge needs identified. All updated and agreeable to plan. Plan: Per pt is medically ready to discharge home via POV. Resources provided. Pt denies any other needs. No other discharge needs identified. DAYLIN Briones
--- NOTE | 2016-06-23 16:23 | NUR ---
Discharge Pt discharged at approximately 1630 to home with Dad. Patient given educational material for Eliquis, Ondansetron, Cephalexin and Diabetic Ketoacidosis. Prescriptions sent to [facility] per Dr Hardwick. Next dose to be taken for all medications clearly written and dated, pt acknowledged and understood all discharge information. PICC line DC'd by IV Therapy RN. Pt left with all personal belongings. Escorted by [employer] in wheelchair to front door.
--- NOTE | 2016-06-23 18:24 | PCM.DC.MED ---
Discharge Summary Date of Service Jun 23, 2016 Dates of Hospitalization Date of Hospital Admission Jun 18, 2016 at 18:46 Date of Discharge: Jun 23, 2016 Providers: Admitting Physician: Gonzalez Arreaga MD Primary Care Physician: Arielle Aguilar DO Attending Physician: Gonzalez Arreaga MD Diagnosis at Time of Discharge Diagnosis at Time of Discharge Diabetic ketoacidosis; intractable nausea and vomiting; chronic abdominal pain; right upper extremity deep vein thrombosis; noncardiac chest pain Consultations Infectious disease: Dr. Denis Ambrose Procedures XRay, CTs & MRIs Chest x-ray is unremarkable CT scan of the abdomen: Reducing pleural effusions bilaterally, simple in character and now small. Improving perirenal inflammatory change at the right kidney, and no hydronephrosis or nephrolithiasis is present. No intrarenal inflammatory process is not found. No abnormal fluid collection remains. Multiple uterine fibroids are again noted. Currently no definite acute disease is found. PROCEDURE: US VENOUS ARM DUPLEX UNILATERAL, RIGHT IMPRESSION: 1. Extensive occlusive deep venous thrombosis involving the right subclavian, axillary veins as well as the brachial and basilic veins within the upper arm. Dictated by: Farhan Barrera [facility] Interpreted: Lauren Garcia MD on 06/21/2016 at 9:44 . Brief History History of Present Illness (per admission note): This is a 36-year-old female recently discharged with the right perinephric or renal abscess. She was on home IV antibiotics including cefazolin and through yesterday and now daptomycin. She has had some progressive hyperglycemia since Friday. Glucose of over 500, but notes that she had a failure of a needle earlier in the day. She developed recurrent right lower quadrant abdominal pain yesterday reminiscent of her previous kidney pain. Her glucose had been intermittently high over the weekend and then last night she developed heartburn which is progressive through the night. This morning she vomited about 12 times. She takes some somewhat up at 2 in the afternoon and then vomited 3 more times. She then came to the hospital. She did call Dr. Ambrose' s office. No fevers or chills. She has over been having some night sweats. She also denies urinary symptoms such as hematuria or dysuria but has had some polyuria. In the ED she is afebrile, white count but does have DKA with positive ketones and anion gap. She was started on the DKA protocol. She denies any recent URI symptoms including rhinorrhea cough or sore throat. No chest pain or dyspnea. No diarrhea. Hospital Course #. Spontaneous Right upper extremity DVT, acute. Not present on admission. - Therapeutic Lovenox then discharge on Eliquis - In light of her diabetes her chads 2 vasc score for chronic A. fib is now 4; probably meriting lifelong anticoagulation - Follow-up with Dr. Aguilar #. Episodes of chest pain and Dyspnea without hypoxemia, not present on admission. Etiology unclear. His primary presented in a sporadic pattern associated with psychological distress. Most likely anxiety attacks. Presentation does not seem typical of pulmonary embolism related dyspnea. CT angiogram was not performed as she was already on therapy for DVT - Reassurance and guidance on managing an anxiety attack #. Nausea and vomiting, acute on chronic. She states that she has had more frequent nausea and vomiting over the past 2 months. She is on Protonix chronically but has no known upper GI pathology. She demonstrated frequent episodes of intractable nausea, which did not improve progressively as she recovered from DKA. Zofran and Compazine were mildly helpful. She requested IV Dilaudid for these symptoms. On further questioning she appears to have developed some opioid dependence with Dilaudid treatment over the past several months. Her severe nausea appeared to be part of a complex opioid dependence and anxiety syndrome. - She was counseled and developed some insight that the underlying problem may be psychological #. Right flank and abdomen pain, acute and chronic. Recent abdomen CT unremarkable, showing improved perinephric abscess. Her Crampy abdominal pain is likely either ureter spasm or bowel cramping due to. Effects. Several medications prescribed empirically: Tamsulosin, hyoscyamine, ketorolac, polyethylene glycol, with limited benefit due to her frequent nausea. Despite her request for IV Dilaudid, she was successfully discontinued from this medication and abdominal symptoms seem reasonably controlled the time of discharge -Discontinue opioid medications, okay for by mouth ibuprofen #. Opioid dependence and opioid withdrawal. She kept her personal medication supply and refused to have this examined by nursing staff. She occasionally showed akathisia, movements suggestive of medication abuse. She showed no clear signs of physical opioid withdrawal as opioid doses were reduced. We discussed health risks of iatrogenic opioid dependence. She seems to have significant psychological dependence and high risk for relapse. - She was counseled to discontinue opioids - She was given community mental health resources and encouraged to seek psychological health counseling #. DKA, POA. Anion gap 29 on admission. Glucose 542. Bicarbonate 2. Lactic acid 2.5. Non significant acidemia by VBG. Course complicated by severe hypomagnesemia and hypo-kalemia. - Resolved #. Diabetes mellitus, type I. hemoglobin A1c 9.2%. Hyperglycemia uncontrolled. We discontinued IV drip and resumed her usual Lantus 15, 20 morning and night. She reports carb ratio 1:3 but does not clearly describe counting carbohydrate grams. She reports correctional scale 1:10. Is difficult to assess this regimen due to her poor by mouth intake during his hospitalization. - Referred to endocrinology clinic for follow-up with Dr. Leonardo in 3 weeks #. Resolving right perinephric abscess, POA. - Completed IV antibiotics; PICC line removed prior to discharge - To continue oral Keflex 2 weeks and follow-up in Dr. Ambrose's clinic #. Pacemaker, POA. The patient appears to have atrial pacing is tachycardic because her on depletion and general discomfort. #. Sinus Tachycardia, POA. Probable volume depletion at time of admission. Received acute fluid resuscitation and normal saline at 1250 mL per hour. This shown persistent tachycardia 24 hour period. Possible stress and pain related to sinus tachycardia. - continue metoprolol - Routine follow-up with Dr. Del Valle in cardiology Exam Vital Signs (Last) Date Time Temp Pulse Resp B/P Pulse Ox O2 Delivery O2 Flow Rate FiO2 06/23/16 14:17 36.7 92 18 119/87 100 Room Air Exam General: Obese young woman with variable affect HEENT: sclerae anicteric, oral mucosa moist Chest: clear to auscultation Cardiac: S1S2, no murmur Abdomen: BS normal, no significant tenderness Extremities: Right arm with diffuse swelling, tender Neuro: A&O, cranial nerves symmetric, motor strength and coordination normal Test 06/18/16 16:20 06/18/16 16:43 06/18/16 17:02 06/18/16 21:10 White Blood Count 8.2th/mm3 (3.8-10.1) Red Blood Count 4.11mil/mm3 (3.90-5.20) Hemoglobin 10.8g/dL (12.0-15.6) Hematocrit 35.9% (35.0-46.0) Mean Corpuscular Volume 87.3fL (81-100) Mean Corpuscular Hemoglobin 26.3pg (27.0-35.0) Mean Corpuscular Hemoglobin Concent 30.1% (32.0-37.0) Red Cell Distribution Width 16.9% (12.3-15.4) Platelet Count 237bil/L (150-400) Neutrophils (%) (Auto) 76.2% (40-74) Lymphocytes (%) (Auto) 12.1% (14-46) Monocytes (%) (Auto) 9.9% (4-12) Eosinophils (%) (Auto) 1.0% (0-5) Basophils (%) (Auto) 0.6% (0-3) Total Bilirubin 0.6mg/dL (0.0-1.2) Aspartate Amino Transf (AST/SGOT) 12U/L (0-50) Alanine Aminotransferase (ALT/SGPT) 6U/L (0-32) Alkaline Phosphatase 95U/L (25-150) Troponin T < 0.010ug/L (0.0-0.011) Total Protein 7.2g/dL (6.4-8.4) Albumin 3.4g/dL (3.4-5.0) Human Chorionic Gonadotropin, Qual Negative (Negative) Prothrombin Time 10.6sec (8.1-12.5) Prothromb Time International Ratio 0.99ratio Osmolality 315 (275-300) Phosphorus Level 3.0mg/dL (2.5-4.9) Pro-B-Type Natriuretic Peptide 2608pg/mL (0-130) Ketones Large (Negative) Urine Ketones 80mg/dL (NEGATIVE) Lactic Acid Level 3.8mmol/L (0.4-2.0) Ionized Calcium 1.04mmol/L (1.17-1.32) Test 06/20/16 08:30 06/21/16 06:30 Magnesium Level 1.8mg/dL (1.6-2.6) Sodium Level 140mEq/L (134-144) Potassium Level 4.1mEq/L (3.5-5.2) Chloride Level 108mEq/L (97-108) Carbon Dioxide Level 18mmol/L (18-29) Blood Urea Nitrogen < 2mg/dL (6-20) Creatinine 0.50mg/dL (0.57-1.00) Estimat Glomerular Filtration Rate 198mL/min (>59) Glucose Level 159mg/dL (60-99) Hemoglobin A1c 8.8% (4.8-5.6) Calcium Level 6.8mg/dL (8.5-10.1) Discharge Medications Discharge Medications Amitriptyline (Amitriptyline) 25 Mg Tab 50-100 MG PO HS (Reported) Aspirin Chew (Aspirin Chew) 81 Mg Chew 81 MG PO QAM (Reported) Atorvastatin (Lipitor) 80 Mg Tablet 80 MG PO HS (Reported) Cephalexin (Cephalexin) 500 Mg Capsule 500 MG PO QID Prescribed by: SEBLE LEONARDO MD Insulin Aspart (NovoLOG U-100 Pen) 100 Unit/Ml Insuln.pen 1-10 UNITS SQ ASDIRECTED (Reported) PER SLIDING SCALE Insulin Glargine (Lantus U100 Insulin Vial) 100 Unit/Ml Vial 15 UNIT SUBQ QAM ( Reported) TAKE LANTUS 15 UNITS IN AM AND 20 UNITS AT HS Insulin Glargine (Lantus U100 Insulin Vial) 100 Unit/Ml Vial 20 UNIT SUBQ HS ( Reported) TAKE LANTUS 15 UNITS IN AM AND 20 UNITS AT HS Levothyroxine (Levothyroxine) 200 Mcg Tablet 200 MCG PO QAM (Reported) TAKE LEVOTHYROXINE 200 MCG W/ 50 MCG TABLET (=250 MCG) TOTAL Levothyroxine (Levothyroxine) 50 Mcg Tablet 50 MCG PO QAM (Reported) TAKE LEVOTHYROXINE 200 MCG W/ 50 MCG TABLET (=250 MCG) TOTAL Lisinopril (Lisinopril) 20 Mg Tablet 20 MG PO QAM (Reported) Metoprolol Succinate ER (Metoprolol Succinate ER) 100 Mg Tab.er.24h 100 MG PO BID (Reported) Pantoprazole DR (Pantoprazole DR) 40 Mg Tablet.dr 40 MG PO BIDWM (Reported) Venlafaxine ER (Venlafaxine ER) 150 Mg Tab.er.24 150 MG PO QAM (Reported) As needed Apixaban (Eliquis) 5 Mg Tablet 5 MG PO DIRECTED PRN PRN DVT 2 tablets twice per day 10 days, then 1 tablet twice per day indefinitely. Prescribed by: SEBLE LEONARDO MD Cyclobenzaprine (Cyclobenzaprine) 10 Mg Tablet 10 MG PO TID PRN PRN Spasm ( Reported) Lorazepam (Ativan) 1 Mg Tablet 1 MG PO QID PRN PRN For Anxiety (Reported) Ondansetron ODT (Ondansetron ODT) 8 Mg Tab.rapdis 8 MG PO TID PRN PRN For Nausea Prescribed by: SEBLE LEONARDO MD Followup Plan Disposition: Home Discharge Diet: Diabetic Discharge Activity: No restrictions Patient Instructions Your right perinephric abscess is essentially healed. The intravenous antibiotics are discontinued. Dr. Ambrose would like you to take Keflex 4 times per day for the next 2 weeks. You are to see him in infectious disease clinic on 07/03/16. You may call his office to confirm this appointment. You have been counseled to discontinue opioid pain medications. You should expect some difficulty tolerating pain after stopping opioid painkillers, while your body rebuilds its ability to control pain. He successfully completed the physical withdrawal from opioids, but psychological dependence may continue for a while. We encourage you to make a permanent break with these medications which are likely to cause you difficulties in the long run. The pain of your right arm DVT should be controllable with ibuprofen 600-800 mg 3 or 4 times per day, as long as this does not upset your stomach. You should continue to elevate your arm as much as you can. You have had episodes of chest pain with shortness of breath. These are not due to cardiac or lung problems, but likely represent anxiety attacks. You should practice deep breathing and combing response to manage these symptoms. You seem to be experiencing anxiety and depression related to your severe medical illnesses recently. We strongly encourage you to pursue psychological health counseling which may help you restore your coping mechanisms. You should stay on your current insulin regimen. Please keep a record of blood sugars upon awakening in the morning, prior to the evening meal and at bedtime. You are encouraged to cut out sweetened beverages and carbohydrate snacks, and concentrate on healthy meals with large portions of vegetable, meat, fish, olive oil, nuts and cheese. You are referred to Dr. Leonardo in the endocrinology clinic, for further care of your type I diabetes. You will continue to take apixiban (Eliquis) for your right upper extremity deep vein thrombosis. You have a follow-up with Dr. Aguilar for management of this problem. You may follow-up with Dr. Del Valle, at your next scheduled appointment. Follow-up Provider: Arielle Aguilar DO Follow-up with PCP in: 1 week (for a posthospitalization follow-up appointment) Provider: Seble Leonardo MD Follow-up in: 3 weeks Mid-level Provider: Denis Ambrose MD Follow-up with Mid-level in: Other (07/03/16) Time spent 60 minutes copies to: Lowell Del Valle MD; Seble Leonardo MD; Arielle Aguilar DO; Denis Ambrose MD, Jeffrey W MD Jun 23, 2016 15:27
== END 2016-06-23 16:30 | disposition home or self-care (01) | DRG 637 ==
LOC: SED 16:05 → CCU 18:46 → PCC 06-19 08:15 → CCU 06-20 → PCC 06-20 14:23
PROVIDERS: ADMIT Hospitalist; ATTEND Hospitalist
DX: E10.10 Type 1 diabetes mellitus with ketoacidosis without coma (principal); N15.1 Renal and perinephric abscess; I82.621 Acute embolism and thrombosis of deep veins of right upper extremity; F11.20 Opioid dependence, uncomplicated; E83.42 Hypomagnesemia; I10 Essential (primary) hypertension; E05.00 Thyrotoxicosis with diffuse goiter without thyrotoxic crisis or storm; F43.10 Post-traumatic stress disorder, unspecified; E87.6 Hypokalemia; R00.0 Tachycardia, unspecified; Z79.4 Long term (current) use of insulin; Z91.19 Patient's noncompliance with other medical treatment and regimen; Z79.82 Long term (current) use of aspirin; Z95.0 Presence of cardiac pacemaker; Z22.321 Carrier or suspected carrier of Methicillin susceptible Staphylococcus aureus

== ENCOUNTER 2016-06-25 04:14 | Inpatient (IN) | payer OTHER ==
[2016-06-25] VITALS (10 sets, daily range): BP systolic 127–160; BP diastolic 70–99; PULSE 72–117; RESP 14–26; O2SAT 96–100
[~2016-06-25] VITALS: Ht 162.6 cm; Wt 106.8 kg
[~2016-06-25 04:14] MED LIST changes: +APIX5TAB PO; -CEFA1VIA3 IV; +CEPH500C PO; -DAPT500V2 IV; -HYDR2TAB27 PO; +ONDA8TAB10 PO; -TRAM-14 PO
--- NOTE | 2016-06-25 04:37 | ED.REPORT ---
HPI-Chest Pain Under 40 Date of Service Jun 25, 2016 ED Provider: Dr. Dean Pt is a 36 year old female with a hx of DM, DKA, right perinephric abscess, Graves' disease, PTSD, PSVT, and a pacemaker presenting to the ED via EMS complaining of 8/10 sharp left chest pain radiating to her back onset tonight. She was woken up by the chest pain and SOB. She reports that she thought it was anxiety, but the pain would not go away. Medics gave Morphine and ASA with no relief. Pt just started taking Eliquis yesterday for a DVT in her arm. Pt was admitted from June 18- for DKA, and was just discharged 2 days ago. Nursing Notes Stated Complaint: CHEST PAIN Chief Complaint: Chest Pain Nursing Notes Reviewed: Yes Allergies: Coded Allergies: amoxicillin (Verified Allergy, Severe, SHORTNESS OF BREATH, 06/18/16) Sulfa (Sulfonamide Antibiotics) (Verified Allergy, Intermediate, RASH, ) adhesive tape (Verified Allergy, Intermediate, REDNESS, 06/18/16) promethazine (Verified Allergy, Intermediate, SIDE EFFECTS JITTERY, ) oxycodone (Verified Adverse Reaction, Intermediate, SIDE EFFECT HALLUCINATIONS AND VOMITING, 06/18/16) Scheduled Amitriptyline (Amitriptyline) 25 Mg Tab 50-100 MG PO HS Aspirin Chew (Aspirin Chew) 81 Mg Chew 81 MG PO QAM Atorvastatin (Lipitor) 80 Mg Tablet 80 MG PO HS Cephalexin (Cephalexin) 500 Mg Capsule 500 MG PO QID Insulin Aspart (NovoLOG U-100 Pen) 100 Unit/Ml Insuln.pen 1-10 UNITS SQ ASDIRECTED PER SLIDING SCALE Insulin Glargine (Lantus U100 Insulin Vial) 100 Unit/Ml Vial 15 UNIT SUBQ QAM TAKE LANTUS 15 UNITS IN AM AND 20 UNITS AT HS Insulin Glargine (Lantus U100 Insulin Vial) 100 Unit/Ml Vial 20 UNIT SUBQ HS TAKE LANTUS 15 UNITS IN AM AND 20 UNITS AT HS Levothyroxine (Levothyroxine) 200 Mcg Tablet 200 MCG PO QAM TAKE LEVOTHYROXINE 200 MCG W/ 50 MCG TABLET (=250 MCG) TOTAL Levothyroxine (Levothyroxine) 50 Mcg Tablet 50 MCG PO QAM TAKE LEVOTHYROXINE 200 MCG W/ 50 MCG TABLET (=250 MCG) TOTAL Lisinopril (Lisinopril) 20 Mg Tablet 20 MG PO QAM Metoprolol Succinate ER (Metoprolol Succinate ER) 100 Mg Tab.er.24h 100 MG PO BID Pantoprazole DR (Pantoprazole DR) 40 Mg Tablet.dr 40 MG PO BIDWM Venlafaxine ER (Venlafaxine ER) 150 Mg Tab.er.24 150 MG PO QAM Scheduled PRN Apixaban (Eliquis) 5 Mg Tablet 5 MG PO DIRECTED PRN PRN DVT 2 tablets twice per day 10 days, then 1 tablet twice per day indefinitely. Cyclobenzaprine (Cyclobenzaprine) 10 Mg Tablet 10 MG PO TID PRN PRN Spasm Lorazepam (Ativan) 1 Mg Tablet 1 MG PO QID PRN PRN For Anxiety Ondansetron ODT (Ondansetron ODT) 8 Mg Tab.rapdis 8 MG PO TID PRN PRN For Nausea General Time Seen by MD: 04:36 Chief Complaint Chest pain Hx Obtained From: Patient, EMS Arrived By: Ambulance Sudden in Onset?: Yes Onset Occurred: Just prior to arrival Symptom Duration: Since onset Location: : Chest left Quality: Painful Migration/Movement: Reports: Chest to back Severity: Current: Pain level 8 out of 10 Severity: Maximum: Severe Recent Healthcare: No recent doctor visit, Recent hospitalization Similar Sx Previous: No Past Medical History Past Medical History Type I diabetes Graves' disease 1991 PTSD History of medication noncompliance SVT Heart Block Anxiety Uterine fibroids Hiatal hernia Renal abscess Past Surgical History Cholecystectomy Partial thyroidectomy Right oopherectomy Right abdominal hernia repair with appendectomy SVT ablation on 03/26/16 Pacemaker insertion 03/27/16 for complete heart block Pacemaker replacement 06/2016 Right percutaneous nephrostomy Left foot surgery Family History Father with type II diabetes currently on dialysis. Mother had knee problems half brother had type I diabetes and at age 33 due to possible hypoglycemia Smoking History Never Smoker Social History Alcohol Use: Denies alcohol use Drug Use: Denies drug use Other Social History: Good social support Ambulatory Status Independent Review of Systems Respiratory: Reports: Shortness of breath Cardiovascular: Reports: Chest pain GI: Denies: Vomiting Neurologic: Denies: Weakness Complete sys rev & neg: except as marked. Physical Exam Initial Vital Signs Vital Signs (First) Date Time Temp Pulse Resp B/P Pulse Ox O2 Delivery O2 Flow Rate FiO2 06/25/16 04:22 36.5 117 26 160/99 96 Room Air Initial VS: Reviewed Head / Eyes: Atraumatic, Normocephalic, PERRL ENT: Mucous membranes moist, Conjunctiva normal, No scleral icterus Abdomen / GI: No distention Extremities: Vascular intact, Neuro intact, No swelling, No tenderness Skin: Warm, Dry, No cyanosis Neurologic: Alert, Oriented, Nonfocal Psychiatric: Mood/affect normal, Behavior normal, Normal thought content General/Constitutional: Awake, Alert, Well appearing Respiratory / Chest: Breath sounds NL, Breath sounds = bilat, No respiratory distress, No rales, No rhonchi, No wheezing, No chest tenderness Tender over fresh wound from taking out prior pacemaker. No fluctuance. Cardiovascular: Heart rate NL, Regular rhythm, Heart sounds NL, No murmurs, Peripheral circulation NL, Pulses = bilaterally, No gross BP differential Upper Extremity / MS: Inspection NL, No deformity, Neurologic intact, Vascular intact DVT in left arm, although no visible evidence. Interpretation & Diagnostics Lab Results Interpretation Result Diagram: 06/25/16 0450 06/25/16 0450 Test 06/25/16 04:50 White Blood Count 5.8th/mm3 (3.8-10.1) Red Blood Count 3.73mil/mm3 (3.90-5.20) Hemoglobin 9.8g/dL (12.0-15.6) Hematocrit 32.7% (35.0-46.0) Mean Corpuscular Volume 87.7fL (81-100) Mean Corpuscular Hemoglobin 26.3pg (27.0-35.0) Mean Corpuscular Hemoglobin Concent 30.0% (32.0-37.0) Red Cell Distribution Width 17.8% (12.3-15.4) Platelet Count 253bil/L (150-400) Neutrophils (%) (Auto) 68.4% (40-74) Lymphocytes (%) (Auto) 20.2% (14-46) Monocytes (%) (Auto) 8.1% (4-12) Eosinophils (%) (Auto) 2.8% (0-5) Basophils (%) (Auto) 0.2% (0-3) Prothrombin Time 11.4sec (8.1-12.5) Prothromb Time International Ratio 1.06ratio Activated Partial Thromboplast Time 19.1sec (22.8-33.0) Sodium Level 139mEq/L (134-144) Potassium Level 3.8mEq/L (3.5-5.2) Chloride Level 101mEq/L (97-108) Carbon Dioxide Level 22mmol/L (18-29) Blood Urea Nitrogen 6mg/dL (6-20) Creatinine 0.45mg/dL (0.57-1.00) Estimat Glomerular Filtration Rate 223mL/min (>59) Glucose Level 100mg/dL (60-99) Calcium Level 8.1mg/dL (8.5-10.1) Magnesium Level 1.4mg/dL (1.6-2.6) Total Bilirubin 0.2mg/dL (0.0-1.2) Aspartate Amino Transf (AST/SGOT) 15U/L (0-50) Alanine Aminotransferase (ALT/SGPT) 6U/L (0-32) Alkaline Phosphatase 156U/L (25-150) Troponin T 0.010ug/L (0.0-0.011) Pro-B-Type Natriuretic Peptide 5479pg/mL (0-130) Total Protein 6.2g/dL (6.4-8.4) Albumin 2.9g/dL (3.4-5.0) Hold Brandon Top Tube Received (Received) ECG Interpretation ECG Interpretation: Paced rhythm. Time: 04:25 Interpreted by: ED physician Abnormal Rate: 120 (117) X-Ray Chest Interpretation Chest Xray Interpretation: Poor inspiration, no focal infiltrate. Interpretation / Wet Read by: Wet read ED physician Re-Eval/Medical Decision Med Decision/Clinical Course 36-year-old female with diabetes, perinephric abscess, recent DKA complicating her abscess, and with documented DVT in the arm. She presents now with that sharp left sided chest pain that radiates to her shoulder and back. It is not pleuritic and not positional. She had no associated nausea vomiting or heartburn. She had some mild diaphoresis. Exam is unremarkable. Recently removed pacemaker pocket is negative for infectious signs or fluctuance. Her lab exam is reassuring. CT of the chest shows a small right sided pulmonary embolus in the upper lobe. Bilateral pleural effusions remain. She continues to have some low-grade chest pain after treatment with opioids. Opioid dependence has been an issue for her in the recent past and she has no opioids at home. Admitted now observation status for completion of rule out protocol. Re-Evaluation/Progress : Time of Eval: 06:07 Patient Status: Condition improved Re-Evaluation/Progress Note: Pt pain improved. Counseled Regarding: Diagnosis, Lab results, Need for follow-up, When/why to return to ED Discharge & Departure Primary Impression: Chest pain Additional Impressions: Pulmonary embolus, right Type I diabetes mellitus Disposition: Home Discharge Condition All VS Reviewed: Yes Condition: Improved Referrals: Arielle Aguilar DO (PCP) Moise Attestation Portions of this note were transcribed by Marisol Avila. I, Dr. Dean personally performed the history, physical exam and medical decision-making; I reviewed and confirmed the accuracy of the information in the transcribed note. Signed by: Moise Strange, 06/25/2016 at 0608. copies to: Arielle Aguilar Christopher W MD Jun 25, 2016 04:37 MARISOL AVILA Jun 25, 2016 04:47
[2016-06-25] MEDS ORDERED: LORazepam 1 mg Tablet PO PRN (04:45)
[2016-06-25] MEDS ORDERED: Ondansetron 2 mg/mL 2 mL Inj IVPUSH ONE (04:45)
[2016-06-25 05:05] LABS: BASOPHILS % (AUTO) 0.2 % (0-3); EOSINOPHILS % (AUTO) 2.8 % (0-5); MONOCYTES % (AUTO) 8.1 % (4-12); Mean Corpuscular Hemoglobin 26.3 pg (27.0-35.0); Mean Corpuscular Volume 87.7 fL (81-100); NEUTROPHILS % (AUTO) 68.4 % (40-74); Platelet Count 253 bil/L (150-400)
[2016-06-25 05:28] LABS: INR 1.06 ratio
[2016-06-25 05:33] LABS: TROPONIN T 0.01 ug/L (0.0-0.011)
[2016-06-25 05:51] LABS: Magnesium 1.4 mg/dL (1.6-2.6)
--- NOTE | 2016-06-25 08:59 | DRSVH ---
PROCEDURE: CT ANGIO CHEST PULMONARY EMBOLISM ([id number]) INDICATIONS: left chest pain TECHNIQUE: After the administration of intravenous contrast, 2 mm thick sections acquired from the pulmonary api karin to the posterior costophrenic angles. 3-dimensional maximum intensity projection (MIP) coronal a nd sagittal reformats were then acquired through the thorax. For radiation dose reduction, the follo wing was used: automated exposure control, adjustment of mA and/or kV according to patient size. COMPARISON: [facility], CT, CT ANGIO CHEST PE, 06/05/2016, 21:01. FINDINGS: Image quality: Excellent. Pulmonary arteries: Pulmonary arteries are normal in size. There is a subsegmental small low-density filling defect within a right upper lobe pulmonary arterial branch. Lungs and pleura: There is mild bilateral lower lobe atelectasis versus pneumonia. Moderate bilateral pleural effusions are present.. Central and peripheral airways are patent. Mediastinum: Heart size is enlarged, without pericardial effusion. No mediastinal or hilar adenopat hy. Thoracic aorta is normal in caliber and enhancement. Esophagus is normal in caliber, without hi atal hernia. Bones and chest wall: No suspicious bony lesions. Ribs and thoracic spine appear intact throughout. Thyroid gland is within normal limits. No axillary or supraclavicular adenopathy. Abdomen: Visualized upper abdominal solid organs appear normal in the early arterial phase of enhanc ement. IMPRESSION: 1. Small subsegmental right upper lobe pulmonary embolus. 2. Moderate bilateral pleural effusions. 3. Bilateral lower lobe atelectasis versus pneumonia. 4. Concordant with preliminary interpretation. Dictated by: Lizet Saldivar M.D. on 06/25/2016 at 8:51 Approved by: Lizet Saldivar M.D. on 06/25/2016 at 8:58
--- NOTE | 2016-06-25 09:30 | DRSVH ---
PROCEDURE: X-RAY CHEST ONE VIEW, PORTABLE ([id number]) INDICATIONS: CHEST PAIN TECHNIQUE: One view of the chest was acquired. COMPARISON: [facility], CT, CT ANGIO CHEST PE, 06/25/2016, 6:35. [facility], CR, XR CHEST 1VW (PORTABLE), 06/18/2016, 16:44. FINDINGS: Surgical changes and devices: Stable positioning of dual chamber right cardiac pacer. Lungs and pleura: Lung volumes are low and pulmonary vasculature is prominent. Mid/bibasilar airspac e opacities. No definite pleural effusion or pneumothorax Mediastinum: Mediastinal contours appear normal. Heart size is normal. Bones and chest wall: No suspicious bony lesions. Overlying soft tissues appear unremarkable. IMPRESSION: Prominence of the pulmonary vasculature which may be related to technique but mild venous congestion and/or pneumonia bony lung bases cannot be excluded. Correlate clinically. Dictated by: Farhan Barrera RRA Interpreted: Lauren Garcia MD on 06/25/2016 at 9:27 Transcribed by: BUCK on 06/25/2016 at 9:29 Approved by: Lauren Garcia MD, PhD on 06/25/2016 at 11:27
[2016-06-25] MEDS ORDERED: Polyethylene Glycol (PEG) 17 Gm Powder PO PRN (11:10)
[2016-06-25] MEDS ORDERED: Ondansetron 2 mg/mL 2 mL Inj IVPUSH PRN (11:10)
[2016-06-25] MEDS ORDERED: Alum-Mag Hydrox-Simeth 30 mL Suspension PO PRN (11:10)
--- NOTE | 2016-06-25 12:34 | NUR ---
Admit Pt arrived to the unit at 1140. She was brought by lo by ED staff, she was able to stand to transfer the bed. She complained of R arm pain and continued chest pain "5/10". She reported mild SOB and was put on 2L O2 via nasal cannula. O2 sats stable 100% on 2L. Oriented to room and call light and updated on plan of care.
[2016-06-25] MEDS: MeTOProlol XL 50 mg ER24 Tablet PO SCH ×2 (13:24→20:53)
[2016-06-25] MEDS ORDERED: LORA1TAB (13:33)
[2016-06-25] MEDS ORDERED: ONDA4TAB12 (13:33)
--- NOTE | 2016-06-25 13:37 | PCM.HPMED ---
Subjective Date of Service Jun 25, 2016 Primary Provider: Admitting Physician: Kamryn Schumacher DO Primary Care Physician: Arielle Aguilar DO Attending Physician: Kamryn Schumacher DO Chief Complaint: Shortness of breath with exertion, Chest pain History of Present Illness: Patient is a 36-year-old female with Type I diabetes, Graves' disease, SVT s/p ablation and PPM with replacement of new pacemaker after suspected bacterial contamination, history of right-sided perinephric abscess s/p nephrostomy tube, and history of right upper extremity DVT found at last hospitalization ( discharged 06/21/2016) presenting with shortness of breath and chest pain. As noted, the patient was recently hospitalized for DKA and found to have a right upper extremity DVT and was discharged with a prescription for Eliquis, which the patient reports starting yesterday. The patient states that she had shortness of breath with exertion and some chest pain when she was discharged. Patient describes her chest pain as midsternal with radiation to her left arm. She reports her chest pain is exacerbated with deep breathing. She states the chest pain progressively worsened yesterday evening and when she checked her blood pressure, the systolic blood pressure was reportedly 200. The patient said she couldn't withstand the pain any longer and summoned EMS at about 2AM. Patient reports the morphine she received in the ED has helped with the chest pain. The patient reports associated dry cough, some nausea and lightheadedness but otherwise denies fever, chills, syncope, emesis, dysuria, abdominal pain, diarrhea, constipation, vision changes, swelling in her extremities, hemoptysis. In the ED, vitals: 36.5, RR 25 satting 100% on room air, HR 103, BP 151/90. CT chest angio shows a small subsegmental right upper lobe pulmonary embolus, moderate bilateral pleural effusions, and bilateral lower lobe atelectasis versus pneumonia. Also of note, discharge summaries from prior hospitalizations suggest an opioid dependency issue. Review of Systems: A comprehensive review of systems was conducted with the patient and found to be negative except as above in the History of Present Illness. Allergies Coded Allergies: amoxicillin (Verified Allergy, Severe, SHORTNESS OF BREATH, 06/18/16) Sulfa (Sulfonamide Antibiotics) (Verified Allergy, Intermediate, RASH, ) adhesive tape (Verified Allergy, Intermediate, REDNESS, 06/18/16) promethazine (Verified Allergy, Intermediate, SIDE EFFECTS JITTERY, ) oxycodone (Verified Adverse Reaction, Intermediate, SIDE EFFECT HALLUCINATIONS AND VOMITING, 06/18/16) Home Medications Lisinopril 20mg daily Levothyroxine 50mcg daily Protonix 40mg BID Eliquis 10mg BID for 10 days, followed by 5mg daily thereafter Amitryptiline 50mg QHS Atorvastatin 80mg QHS Effexor 150mg daily Tramadol 50mg Q4 hours PRN Metoprolol ER 100mg BID Keflex 500mg QID Lantus 15 units in the AM, 20 units in the PM Cyclobenzaprine 10mg TID PRN Ativan 1mg QID PRN Zofran 8mg TID PRN PMH Type I diabetes Graves' disease PTSD/anxiety History of medication noncompliance SVT s/p ablation and PPM Anxiety Uterine fibroids Hiatal hernia History of renal abscess Right upper extremity DVT . 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 External ears without defect. Pupils equal, round, and reactive to light and accommodation. Anicteric sclerae, moist conjunctivae, and no lid lag. Oropharynx free of erythema and cobble stoning with moist mucosa. Neck: Supple. Well-healed surgical incision at base of neck. Cardiovascular: Regular rate and rhythm with no murmurs, rubs, or gallops appreciated Pulmonary: Clear to auscultation bilaterally with no crackles, wheezes, or rhonchi. Bases with decreased breath sounds. Abdomen: Bowel tones present. Soft, nontender, nondistended. Extremities: No clubbing, cyanosis, edema, or lymphadenopathy appreciated. Skin: Normal temperature, turgor, and texture; no rash, ulcers, or subcutaneous nodules appreciated. Left upper chest with healing surgical incision. Right upper chest with healing surgical incision. Neurological: Cranial nerves grossly intact. Psychiatric: Normal mood and affect. Alert and oriented to person, place, and time. Lab and Diagnostics Result Diagram: 06/25/1644906/25/16449 X-Rays, CTs and MRIs Date of Service: 06/25/16447 PROCEDURE: CT ANGIO CHEST PULMONARY EMBOLISM ([id number]) IMPRESSION: 1. Small subsegmental right upper lobe pulmonary embolus. 2. Moderate bilateral pleural effusions. 3. Bilateral lower lobe atelectasis versus pneumonia. 4. Concordant with preliminary interpretation. Dictated by: Lizet Saldivar M.D. on 06/25/2016 at 8:51 Approved by: Lizet Saldivar M.D. on 06/25/2016 at 8:58 ------ Date of Service: 06/25/16419 PROCEDURE: X-RAY CHEST ONE VIEW, PORTABLE ([id number]) IMPRESSION: Prominence of the pulmonary vasculature which may be related to technique but mild venous congestion and/or pneumonia bony lung bases cannot be excluded. Correlate clinically. Dictated by: Farhan Barrera RRA Interpreted: Lauren Garcia MD on 06/25/2016 at 9:27 Transcribed by: BUCK on 06/25/2016 at 9:29 Approved by: Lauren Garcia MD, PhD on 06/25/2016 at 11:27 Assessment & Plan Patient is a 36-year-old female with Type I diabetes, Graves' disease, SVT s/p ablation and PPM with replacement of new pacemaker after suspected bacterial contamination, and history of right upper extremity DVT found at previous hospitalization (discharged 06/21/2016) presenting with shortness of breath and chest pain. Hospital day #1. Acute chest pain. Present on admission. Active - Suspect likely secondary to pulmonary embolism - EKG shows sinus tachycardia with HR 117, LBBB, no change from prior EKGs - Troponin negative x 2. Continue to trend - Echocardiogram pending Pulmonary embolism. Present on admission. Active - Identified on CT chest angio - Patient discharged with Eliquis on previous hospitalization. Continue Eliquis Dyspnea on exertion without hypoxemia. Present on admission. Active - Suspect likely secondary to pulmonary embolism, pleural effusion - No signs of infection clinically - no elevated WBC, fever, chills or cough - Currently saturating well on room air (>95%). Supplemental oxygen as needed Right upper extremity DVT. Present on admission. Active - Identified on previous hospitalization from 06/18/2016 - 06/23/2016 - Eliquis as above Right perinephric abscess. Present on admission. Resolving - No fever, leukocytosis or clear SIRS criteria - Continue prior regimen of daptomycin and cefazolin - Infectious disease consult following Acute pain. Present on admission. Active - IV ketorolac 15mg Q6 hours PRN - Nonpharmacologic measures - Patient with reported opioid dependence following previous hospitalizations where she received Dilaudid IV - PATIENT IS NOT TO HAVE OPIOIDS Prolonged QTc, chronic. Present on admission. Active - Present on EKGs from previous hospitalizations - Likely secondary to chronic use of amitriptyline, Zofran - Continue to monitor with EKG Type I diabetes mellitus, chronic. Present on admission - Continue home dose Lantus 15 units AM, and reduced dose Lantus 15 units PM - Lispro low dose correctional Hypothyroidism, chronic. Present on admission - Secondary to parathyroidectomy for Graves - Continue home dose levothyroxine 50mcg daily Depression and anxiety, chronic. Present on admission - Continue home dose amitriptyline 50mg Q HS - Continue home dose venlafaxine 150mg daily - Continue home dose Ativan 1mg QID PRN Dyslipidemia, chronic. Present on admission - Continue home dose atorvastatin 80mg Q HS Hypertension, chronic. Present on admission - Continue home lisinopril 20mg daily Patient Status: Patient is admitted under observation status with expected length of stay less than 2 midnights due to risk of adverse event. VTE Prophylaxis: Other (Eliquis) Resuscitation Status: CPR: Attempt Resuscitation Attending Statement The patient was seen and examined together with Dr. Zamora on 06/25/16 and I have added additional information to the note above. Marck Zamora DO Jun 25, 2016 11:19 Kamryn Schumacher DO Jun 25, 2016 15:17 Kamryn Schumacher DO Jun 25, 2016 15:17
[2016-06-25] MEDS: Ketorolac 15 mg/mL Inj IVPUSH PRN ×2 (14:45→20:45)
[2016-06-25] MEDS ORDERED: Ketorolac 15 mg/mL Inj IVPUSH PRN (15:05)
[2016-06-25] MEDS ORDERED: Magnesium Sulf 2 Gm/50mL Water 2 GM in IV Premix 1 EACH IV ONE (15:55)
--- NOTE | 2016-06-25 16:05 | DRSVH ---
[facility] [address] [place] [address] Echocardiogram Report Name: KAYLEE TURNER MStudy Date: 06/25/2016 Height: 64 in Hospital Exam Location: [facility] Weight: 238 lb Gender: Female BSA: 2.1 m2 : 1980 Age: 36 yrs BP: 142/80 mmHg Reason For Study: CHEST PAIN Ordering Physician: HOSPITALIST OGVINDerformed By: Laurie Scruggs Referring Physician: Arielle Aguilar Interpretation Summary The left ventricle is normal in size. Apical, mid inferior, mid septal and anterior stevenson are severely hypokinetic. The ejection fraction is estimated to be 25-30%. Compared to the prior exam, left ventricular function is significantly decreased. The right ventricle is at the upper limits of normal in size. Right ventricular systolic function is mildly reduced. There is no significant valvular heart disease. Procedure: This is a limited echocardiogram ordered for chest pain. The apical views were difficult to obtain and are suboptimal in quality. A contrast injection of Definity was performed to improve assessment of LV function. Contrast was injected into an intravenous site in the left arm. A total of 4 cc of contrast was given. Comparison is made with the echocardiogram of 05-22-2016. The patient was in a tachycardic rhythm during the exam. The patient did well with the Definity Contrast. Left Ventricle: The left ventricle is normal in size. The ejection fraction is estimated to be 25-30%. Compared to the prior exam, left ventricular function is significantly decreased. Apical, mid inferior, mid septal and anterior stevenson are severely hypokinetic. Diastolic function could not be accurately assessed due to tachycardia. Right Ventricle: The right ventricle is at the upper limits of normal in size. Right ventricular systolic function is mildly reduced. Mitral Valve: The mitral valve leaflets appear normal. There is no evidence of stenosis, fluttering, or prolapse. Aortic Valve: The aortic valve is trileaflet. The aortic valve opens well. Tricuspid Valve: The tricuspid valve leaflets are thin and pliable. Pulmonic Valve: The pulmonic valve is not well seen, but is grossly normal. Great Vessels: The IVC is dilated (diameter is greater than 2.1 cm) and it collapses less than 50% with a sniff. This suggests a high right atrial pressure of 15 mm Hg. Pericardium/ Pleura There is a trivial pericardial effusion noted. There are no echocardiographic indications of cardiac tamponade. There is a large left-sided pleural effusion. MMode/2D Measurements & Calculations LVIDd LA dimension LV shelton. diameter/BSA LV sys. diameter/BSA : 5.3 cm (cm/m^2): 2.5 (cm/m^2): 1.7 LVIDs IVC diam : 3.6 cm : 3.0 cm FS: 31.5 % IVSd: 1.3 cm LVPWd : 1.3 cm RVD2 (mid) : 4.0 cm Doppler Measurements & Calculations MV E max gianni: 121.6 cm/sec Electronically signed by: Vahid Schwartz on Reading Physician:06/25/2016 04:04 PM
[2016-06-25] MEDS: Pantoprazole 40 mg ER24 Tablet PO SCH (16:22)
[2016-06-25] MEDS: Insulin GLARgine 100 Unit/mL Syringe SUBQ SCH (20:54)
[2016-06-25] MEDS: Nystatin 100,000 Unit/Gm 15 Gm Powder TOPICAL SCH (21:22)
[2016-06-25] MEDS: Lidocaine Topical 5% Patch TOPICAL SCH (23:52)
[2016-06-26] VITALS (10 sets, daily range): BP systolic 134–150; BP diastolic 81–103; PULSE 95–106; RESP 16–22; O2SAT 97–100
[2016-06-26] MEDS: LORazepam 1 mg Tablet PO PRN (00:02)
--- NOTE | 2016-06-26 00:31 | NUR ---
Anxiety/Med/Transfer Care Pt reports pain not controlled with Toradol. MD made aware. Extra dose of Toradol given and Lidocaine patch tonight. Pt requested to speak with Charge nurse. Charge nurse explained plan r/t pain with patient. Pt anxious but been refusing Ativan til later on. Pt requested to have her purse beside her to get her Alfred. Staff noticed meds in her purse. Reminded patient that she cannot take her home meds while here and we need to have her meds sent to pharmacy or in the closet. Patient mentioned she is not taking any of her meds. She mentioned that her Dad will pick them up tomorrow. She expressed anxiety and anger when asked if we can put her meds that is in her purse in the closet or send it to pharmacy. Pt started shouting and expressing " I am not taking my meds". Nurse and charge nurse explained to patient about policy about having home meds at bedside. Patient expressed anxiety and anger. Shouting and asking to have a different nurse. She shouting " Why are you accusing me?". Tried to explained to patient but she was getting hysterical. Charge nurse in room and explained to the patient. Transfer care to [facility] and [facility].
--- NOTE | 2016-06-26 01:14 | NUR ---
NOC activity 0100: report from CLARA Abdul. security and full charge bookkeeper present to lock up medications/purse in her closet. patient is withdrawn, cooperative at this time. reports pain 6/10 chest discomfort and RUE. tolerating PRN tordol for pain management. Spo2 99 at rest, desats occassionally to high 80's, recovers well w/ encouragement to deep breathe and keep o2 via NC in place.
[2016-06-26 04:13] LABS: BASOPHILS % (AUTO) 0.4 % (0-3); EOSINOPHILS % (AUTO) 3.4 % (0-5); MONOCYTES % (AUTO) 7.8 % (4-12); Mean Corpuscular Hemoglobin 26.1 pg (27.0-35.0); Mean Corpuscular Volume 90.3 fL (81-100); NEUTROPHILS % (AUTO) 59.7 % (40-74); Platelet Count 229 bil/L (150-400)
[2016-06-26] MEDS: Pantoprazole 40 mg ER24 Tablet PO SCH ×2 (05:47→17:56)
[2016-06-26] MEDS: Insulin GLARgine 100 Unit/mL Syringe SUBQ SCH ×2 (08:54→20:57)
[2016-06-26] MEDS: Nystatin 100,000 Unit/Gm 15 Gm Powder TOPICAL SCH ×2 (08:55→20:52)
[2016-06-26] MEDS: MeTOProlol XL 50 mg ER24 Tablet PO SCH ×2 (08:55→20:52)
[2016-06-26] MEDS: Venlafaxine XR 75 mg ER24 Capsule PO SCH (08:56)
--- NOTE | 2016-06-26 12:36 | NUR ---
Social Work Note: Screen Note Data& Assessment: EMR reviewed. Roseline Frey is 36 year old female admitted on 06/25/2016 for chest pain. Pt has [employer] insurance coverage. Pt sees Annette Aguilar DO for primary care. Pt lives in [place] with her father and is independent at baseline. Pt is a readmission and MD is ruling out a new dx of CHF. No discharge needs identified at this time. SW to continue to follow. Plan: Anticipated discharge home via POV when medically ready. SW to continue to follow for MD recommendations and any discharge needs that may arise. No immediate discharge needs identified at this time. DAYLIN Briones
[2016-06-26] MEDS: Furosemide 10 mg/mL 4 mL Inj IVPUSH SCH (12:49)
[2016-06-26] MEDS ORDERED: Glucose 40% Oral Gel 15 Gm Tube PO PRN (15:25)
--- NOTE | 2016-06-26 18:18 | NUR ---
P: Hemodynamics, Resp, Pain, Nutrition I,E: Pt is in SR, is hypertensive this evening with diastolic 104. Lasix given per MD earlier this afternoon and pt has had good response to this. She does continue to have crackles, and is currently on NC 2l with sats 100%. She takes her O2 off at times, but her O2 usually stays 99-100% on room air. Pt was complaining of pain this morning, and MD was notified. Repositioning, distraction, heat utilized or offered with little effect. Pt was given one time order MS 4mg and she slept for a couple of hours after this. She is complaining of some pain this evening in her chest associated with breathing, and Tramadol was given for this pain. Pt was also complaining of some pain in her right leg and when it was hanging over the edge of the bed it was dusky in colour, purplish. I had her place her leg back on the bed and checked her pulses. She had 2+ DP, and easily dopplerable PT. Her foot rapidly returned to it's usual colour when placed in the bed up on a pillow. MD was notified of this change in her foot, no new orders. Pt has been eating 100% of her diet and it has been requested that she not receive sugar type drinks/juices on her tray as her blood glucose levels are elevated. She has been started on SSI this evening.
[2016-06-26] MEDS: Insulin LISPRO 300 Unit/3 mL Inj SUBQ SCH ×2 (18:32→22:04)
--- NOTE | 2016-06-26 18:32 | PCM.PNMED ---
Subjective Date of Service Jun 26, 2016 Subjective Patient continues to complain of chest pain and requests pain medications. She states that lidocane patch provided only mild relief. She is tolerating oral intake well. She denies nausea, vomiting, diarrhea. Exam Vital Signs Vital Sign - Last Date Time Temp Pulse Resp B/P Pulse Ox O2 Delivery O2 Flow Rate FiO2 06/26/16 16:00 36.6 18 145/103 100 Nasal Cannula 2.00 06/26/16 12:30 104 06/25/16 11:51 100 Intake and Output 06/25/16 06/25/16 06/26/16 Cumulative From/Thru 15:00 23:00 07:00 06/25/16 04:22 - 06/26/16 05:00 Intake Total 332 ml 718 ml 1050 ml Output Total 350 ml 300 ml 650 ml Balance -18 ml 418 ml 400 ml Intake Oral 200 ml 718 ml 918 ml IV Total 132 ml 132 ml Output Urine Total 350 ml 300 ml 650 ml # Bowel Movements 0 0 Exam General: No acute distress, well-developed, well-nourished, appropriately interactive Neck: Supple. Well-healed surgical incision at base of neck. Cardiovascular: Regular rate and rhythm with no murmurs, rubs, or gallops appreciated Pulmonary: Clear to auscultation bilaterally with no crackles, wheezes, or rhonchi. Bases with decreased breath sounds Abdomen: Obese, bowel tones present. Soft, nontender, nondistended. Extremities: No clubbing, cyanosis, edema, or lymphadenopathy appreciated. Right upper extremity is mildly swollen Neurological: Cranial nerves grossly intact. IVs and Medications Medications Reviewed: Medications were reviewed in detail Lab and Diagnostics Result Diagram: 06/26/16 0345 06/26/16 0345 X-Rays, CTs and MRIs Date of Service: 06/25/16 0448 PROCEDURE: CT ANGIO CHEST PULMONARY EMBOLISM ([id number]) IMPRESSION: 1. Small subsegmental right upper lobe pulmonary embolus. 2. Moderate bilateral pleural effusions. 3. Bilateral lower lobe atelectasis versus pneumonia. 4. Concordant with preliminary interpretation. Dictated by: Lizet Saldivar M.D. on 06/25/2016 at 8:51 Approved by: Lizet Saldivar M.D. on 06/25/2016 at 8:58 ------ Date of Service: 06/25/16 0420 PROCEDURE: X-RAY CHEST ONE VIEW, PORTABLE ([id number]) IMPRESSION: Prominence of the pulmonary vasculature which may be related to technique but mild venous congestion and/or pneumonia bony lung bases cannot be excluded. Correlate clinically. Dictated by: Farhan Barrera RRA Interpreted: Lauren Garcia MD on 06/25/2016 at 9:27 Transcribed by: BUCK on 06/25/2016 at 9:29 Approved by: Lauren Garcia MD, PhD on 06/25/2016 at 11:27 Assessment & Plan Patient is a 36-year-old female with Type I diabetes, Graves' disease, SVT s/p ablation and PPM with replacement of new pacemaker after suspected bacterial contamination, and history of right upper extremity DVT found at previous hospitalization (discharged 06/21/2016) presenting with shortness of breath and chest pain. Hospital day #2. Acute chest pain. Present on admission. Active - Suspect likely secondary to pulmonary embolism - EKG shows sinus tachycardia with HR 117, LBBB, no change from prior EKGs - Troponin negative x 2. Continue to trend - Echocardiogram revealed severely hypokinetic apical, mid inferior, mid septal and anterior stevenson, the ejection fraction of 25-30%. Compared to the prior exam , left ventricular function is significantly decreased Pulmonary embolism. Present on admission. Active - Identified on CT chest angio - Patient discharged with Eliquis on previous hospitalization. Continue Eliquis Dyspnea on exertion without hypoxemia. Present on admission. Active - Suspect likely secondary to pulmonary embolism, pleural effusion - No signs of infection clinically - no elevated WBC, fever, chills or cough - Currently saturating well on room air (>95%). Supplemental oxygen as needed Right upper extremity DVT. Present on admission. Active - Identified on previous hospitalization from 06/18/2016 - 06/23/2016 - Eliquis as above Acute systolic congestive heart failure, present on admission. Active - Echocardiogram revealed severely hypokinetic apical, mid inferior, mid septal and anterior stevenson, the ejection fraction of 25-30%. Compared to the prior exam , left ventricular function is significantly decreased - Continue home medications and start Lasix 40 mg intravenously - Continue to monitor Right perinephric abscess. Present on admission. Resolving - No fever, leukocytosis or clear SIRS criteria - Continue prior regimen of daptomycin and cefazolin - Infectious disease consult following Acute pain. Present on admission. Active - Discontinue IV ketorolac - Nonpharmacologic measures - Patient with reported opioid dependence following previous hospitalizations where she received Dilaudid IV - PATIENT IS NOT TO HAVE OPIOIDS - Tylenol and tramadol for pain only Prolonged QTc, chronic. Present on admission. Active - Present on EKGs from previous hospitalizations - Likely secondary to chronic use of amitriptyline, Zofran - Continue to monitor with EKG Type I diabetes mellitus, chronic. Present on admission - Continue home dose Lantus 15 units AM, and reduced dose Lantus 15 units PM - Lispro low dose correctional Hypothyroidism, chronic. Present on admission - Secondary to parathyroidectomy for Graves - Continue home dose levothyroxine 50mcg daily Depression and anxiety, chronic. Present on admission - Continue home dose amitriptyline 50mg Q HS - Continue home dose venlafaxine 150mg daily - Continue home dose Ativan 1mg QID PRN Dyslipidemia, chronic. Present on admission - Continue home dose atorvastatin 80mg Q HS Hypertension, chronic. Present on admission - Continue home lisinopril 20mg daily Patient Status: Patient is admitted under observation status with expected length of stay less than 2 midnights due to risk of adverse event. VTE Prophylaxis: Other (Eliquis) Resuscitation Status: CPR: Attempt Resuscitation Attending Statement The patient was seen and examined together with Dr. Hardwick on 06/26/2016 and I agree with the history, exam and plan as outlined in the note above. . Annalisa Hardwick DO Jun 26, 2016 18:32 Tom Garay MD Jun 27, 2016 02:56
[2016-06-26] MEDS: Lidocaine Topical 5% Patch TOPICAL SCH (20:52)
[2016-06-27] VITALS (7 sets, daily range): BP systolic 114–138; BP diastolic 77–95; PULSE 90–96; RESP 19–22; O2SAT 95–100
[2016-06-27] MEDS: LORazepam 1 mg Tablet PO PRN ×3 (00:04→21:45)
[2016-06-27 03:38] LABS: Mean Corpuscular Hemoglobin 26.3 pg (27.0-35.0); Mean Corpuscular Volume 90.5 fL (81-100)
[2016-06-27] MEDS: Nystatin 100,000 Unit/Gm 15 Gm Powder TOPICAL SCH ×2 (08:30→21:18)
[2016-06-27] MEDS: Insulin LISPRO 300 Unit/3 mL Inj SUBQ SCH ×4 (09:05→21:26)
[2016-06-27] MEDS: Insulin GLARgine 100 Unit/mL Syringe SUBQ SCH ×2 (09:06→21:25)
[2016-06-27] MEDS: MeTOProlol XL 50 mg ER24 Tablet PO SCH ×2 (09:09→21:17)
[2016-06-27] MEDS: Pantoprazole 40 mg ER24 Tablet PO SCH ×2 (09:10→17:07)
[2016-06-27] MEDS: Venlafaxine XR 75 mg ER24 Capsule PO SCH (09:10)
[2016-06-27] MEDS: Furosemide 10 mg/mL 4 mL Inj IVPUSH SCH (09:14)
--- NOTE | 2016-06-27 16:40 | NUR ---
Activity/oxygen/pain/anxiety Patient appeared unmotivated today- she refused skin/body / hygiene care. Independent to bedside commode and in room. Stated having some shortness of breath with activity but oxygen saturation on RA or on 2L NC was 98-100%. Scattered crackles at lung basis about 1/3 up on auscultation. Mid-day patient requested a dose of PRN Ativan 1mg PO and PRN dose of PO Tramadol- patient stated felling anxious and having some generalized pain. Within 40 min from the time PO PRN meds were given patient was sleeping but remained easily reusable and indicate the symptoms resolved.
--- NOTE | 2016-06-27 17:46 | PCM.PNMED ---
Subjective Date of Service Jun 27, 2016 Subjective Patient states she is feeling the same today. He continues to have chest pain and shortness of breath. She is voiding without any difficulties. She is tolerating oral intake. She is ambulating independently. She denies any other problems or concerns. Exam Vital Signs Vital Sign - Last Date Time Temp Pulse Resp B/P Pulse Ox O2 Delivery O2 Flow Rate FiO2 06/27/16 16:21 Supplement Oxygen 06/27/16 16:21 37.0 96 22 131/92 99 2.00 06/25/16 11:51 100 Intake and Output 06/26/16 06/26/16 06/27/16 Cumulative From/Thru 15:00 23:00 07:00 06/25/16 04:22 - 06/27/16 05:17 Intake Total 1040 ml 240 ml 2330 ml Output Total 1800 ml 1800 ml 4250 ml Balance -760 ml -1560 ml -1920 ml Intake Oral 1040 ml 240 ml 2198 ml IV Total 132 ml Output Urine Total 1800 ml 1800 ml 4250 ml # Voids 6 6 # Bowel Movements 0 0 Exam General: No acute distress, well-developed, well-nourished, appropriately interactive Neck: Supple. Well-healed surgical incision at base of neck. Cardiovascular: Regular rate and rhythm with no murmurs, rubs, or gallops appreciated Pulmonary: Clear to auscultation bilaterally with no crackles, wheezes, or rhonchi. Bases with decreased breath sounds Abdomen: Obese, bowel tones present. Soft, nontender, nondistended. Extremities: No clubbing, cyanosis, edema, or lymphadenopathy appreciated. Right upper extremity is mildly swollen Neurological: Cranial nerves grossly intact. IVs and Medications Medications Reviewed: Medications were reviewed in detail Lab and Diagnostics Result Diagram: 06/27/1632906/27/16 033 X-Rays, CTs and MRIs Date of Service: 06/25/16 4828 PROCEDURE: CT ANGIO CHEST PULMONARY EMBOLISM ([id number]) IMPRESSION: 1. Small subsegmental right upper lobe pulmonary embolus. 2. Moderate bilateral pleural effusions. 3. Bilateral lower lobe atelectasis versus pneumonia. 4. Concordant with preliminary interpretation. Dictated by: Lizet Saldivar M.D. on 06/25/2016 at 8:51 Approved by: Lizet Saldivar M.D. on 06/25/2016 at 8:58 ------ Date of Service: 06/25/16 0420 PROCEDURE: X-RAY CHEST ONE VIEW, PORTABLE ([id number]) IMPRESSION: Prominence of the pulmonary vasculature which may be related to technique but mild venous congestion and/or pneumonia bony lung bases cannot be excluded. Correlate clinically. Dictated by: Farhan Barrera RRA Interpreted: Lauren Garcia MD on 06/25/2016 at 9:27 Transcribed by: BUCK on 06/25/2016 at 9:29 Approved by: Lauren Garcia MD, PhD on 06/25/2016 at 11:27 Assessment & Plan Patient is a 36-year-old female with Type I diabetes, Graves' disease, SVT s/p ablation and PPM with replacement of new pacemaker after suspected bacterial contamination, and history of right upper extremity DVT found at previous hospitalization (discharged 06/21/2016) presenting with shortness of breath and chest pain. Hospital day #3. Acute chest pain. Present on admission. Active - Suspect likely secondary to pulmonary embolism - EKG shows sinus tachycardia with HR 117, LBBB, no change from prior EKGs - Troponin negative x 2. Continue to trend - Echocardiogram revealed severely hypokinetic apical, mid inferior, mid septal and anterior stevenson, the ejection fraction of 25-30%. Compared to the prior exam , left ventricular function is significantly decreased - And takes Tylenol and Toradol for pain Pulmonary embolism. Present on admission. Active - Identified on CT chest angio - Patient discharged with Eliquis on previous hospitalization. Continue Eliquis - Continue to monitor Dyspnea on exertion without hypoxemia. Present on admission. Active - Suspect likely secondary to pulmonary embolism, pleural effusion - No signs of infection clinically - no elevated WBC, fever, chills or cough - Currently saturating well on room air (>95%). Supplemental oxygen as needed - Patient is currently 99% on 2 liters of oxygen, nasal canula Right upper extremity DVT. Present on admission. Active - Identified on previous hospitalization from 06/18/2016 - 06/23/2016 - Eliquis as above Acute systolic congestive heart failure, present on admission. Active - Echocardiogram revealed severely hypokinetic apical, mid inferior, mid septal and anterior stevenson, the ejection fraction of 25-30%. Compared to the prior exam , left ventricular function is significantly decreased - Continue home medications - Continue Lasix 40 mg intravenously - Continue to monitor Right perinephric abscess. Present on admission. Resolving - No fever, leukocytosis or clear SIRS criteria - Continue prior regimen of daptomycin and cefazolin - Infectious disease consult following Acute pain. Present on admission. Active - Discontinue IV ketorolac - Nonpharmacologic measures - Patient with reported opioid dependence following previous hospitalizations where she received Dilaudid IV - PATIENT IS NOT TO HAVE OPIOIDS - Tylenol and tramadol for pain only Prolonged QTc, chronic. Present on admission. Active - Present on EKGs from previous hospitalizations - Likely secondary to chronic use of amitriptyline, Zofran - Continue to monitor with EKG Type I diabetes mellitus, chronic. Present on admission - Continue home dose Lantus 15 units AM, and reduced dose Lantus 15 units PM - Lispro low dose correctional Hypothyroidism, chronic. Present on admission - Secondary to parathyroidectomy for Graves - Continue home dose levothyroxine 50mcg daily Depression and anxiety, chronic. Present on admission - Continue home dose amitriptyline 50mg Q HS - Continue home dose venlafaxine 150mg daily - Continue home dose Ativan 1mg QID PRN Dyslipidemia, chronic. Present on admission - Continue home dose atorvastatin 80mg Q HS Hypertension, chronic. Present on admission - Continue home lisinopril 20mg daily Patient Status: Patient is admitted under observation status with expected length of stay less than 2 midnights due to risk of adverse event. Pain Evaluation: Adequate Pain Control VTE Prophylaxis: Other (Eliquis) Resuscitation Status: CPR: Attempt Resuscitation Attending Statement The patient was seen and examined together with Dr. Hardwick on 06/27/2016 and I agree with the history, exam and plan as outlined in the note above. . Annalisa Hardwick DO Jun 27, 2016 17:46 Tom Garay MD Jun 29, 2016 07:31
[2016-06-27] MEDS: Lidocaine Topical 5% Patch TOPICAL SCH (21:19)
[2016-06-28] VITALS (8 sets, daily range): BP systolic 88–110; BP diastolic 66–84; PULSE 80–83; RESP 14–22; O2SAT 95–100
[2016-06-28 04:13] LABS: Mean Corpuscular Hemoglobin 26.4 pg (27.0-35.0); Mean Corpuscular Volume 90.1 fL (81-100)
--- NOTE | 2016-06-28 04:41 | NUR ---
P: c/o mid CP, R arm and leg pain, and occasional R kidney discomfort I: Pt repositions self, tramadol, ativan given E: CP, R arm and leg pain, 4-510. States tramadol and ativan help some. "It helps me sleep". Denies dyspnea at rest. 1L NC, sats high 90s. "The oxygen helps w/ SOB". States exertional dyspnea. Denies N/V. Tele V paced. BP stable. Up to BSC. On menses.
[2016-06-28] MEDS: Nystatin 100,000 Unit/Gm 15 Gm Powder TOPICAL SCH (07:34)
[2016-06-28] MEDS: Insulin GLARgine 100 Unit/mL Syringe SUBQ SCH (07:34)
[2016-06-28] MEDS: Venlafaxine XR 75 mg ER24 Capsule PO SCH (07:35)
[2016-06-28] MEDS: Insulin LISPRO 300 Unit/3 mL Inj SUBQ SCH ×2 (07:36→12:00)
[2016-06-28] MEDS: Furosemide 10 mg/mL 4 mL Inj IVPUSH SCH (07:39)
[2016-06-28] MEDS: MeTOProlol XL 50 mg ER24 Tablet PO SCH (07:39)
[2016-06-28] MEDS: Pantoprazole 40 mg ER24 Tablet PO SCH (07:39)
--- NOTE | 2016-06-28 12:17 | PCM.DIMED ---
Marck Zamora DO 06/28/16 1217: Discharge Instructions Date of Service Jun 28, 2016 Dates of Hospitalization Jun 25, 2016 at 09:23 Discharge Diagnosis Discharge Diagnosis Acute chest pain. Present on admission. Improving Pulmonary embolism. Present on admission. Active Dyspnea on exertion without hypoxemia. Present on admission. Improved Right upper extremity DVT. Present on admission. Active Acute systolic congestive heart failure, present on admission. Active Right perinephric abscess. Present on admission. Resolving Prolonged QTc, chronic. Present on admission. Active Type I diabetes mellitus, chronic. Present on admission Hypothyroidism, chronic. Present on admission Depression and anxiety, chronic. Present on admission Dyslipidemia, chronic. Present on admission Hypertension, chronic. Present on admission Medication Instructions During this hospitalization you were started on new medication. Unless otherwise directed by a physician, please follow these medication instructions. Note that your physician may continue to change your medication regimen. New medication: -Furosemide 40mg. Take one tablet by mouth daily in the morning Continue your other home medications. Take them as directed Diet Low fat, Low Sodium, Heart Healthy, Diabetic Activity Limited until seen by PCP Call your provider Shortness of breath, Chest pain Patient Instructions Track your weight as this is an indicator of your body's fluid retention. 1. Weigh yourself every day at the same time and write it down. 2. Take your weight log to your doctor visits. 3. Call your doctor if you gain 3-5 pounds over 2-3 days. 4. Your weight today is 235 lbs. Try to reduce the amount of sodium in your diet. Limit yourself to no more than 1500mg of sodium daily. Check food labels. Remove salt shaker from the dinner table. Follow-up plan Please follow up with your primary care physician, Dr. Shira Aguilar, in about one week. You will need to have lab work (Basic Metabolic Panel) drawn before that visit. Bring these instructions with you to the lab. Follow-up Provider: Arielle Aguilar DO Follow-up with PCP in: 1 week (By 07/03/2016) Tom Garay MD 06/29/16 0731: Discharge Instructions Attending's Statement The patient was seen and examined together with Dr. Zamora on 06/28/2016 and I agree with the history, exam and plan as outlined in the note above. . Marck Zamora DO Jun 28, 2016 12:17 Tom Garay MD Jun 29, 2016 07:31
--- NOTE | 2016-06-28 12:28 | NUR ---
rectal temp/ clammy/SOB pt feels cold clammy diaphoretic and SOB. Spo2 100% on RA, See VS. Oral temp 94 but pt has been drinking fluids, rectal temp 98.8. Orthos checked. Pt is not orthostatic. Pt states she does not feel ready to go home now. BG 106. Dr Zamora notified
[2016-06-28] MEDS ORDERED: FURO-128 PO (12:39)
--- NOTE | 2016-06-28 16:29 | NUR ---
DISCHARGE Dr Zamora discussed with pt that the plan was to dc today, shortly after that pt stated she had 9/10 CP. ECG shows no acute changes. Minor changes reviewed face to face with Dr Zamora. Troponin is negative. Plan to continue with discharge plan. 1600 All dc instructions reviewed with pt. Meds and belongings retrieved out of locked cabinet. Pt wheeled out with ease.
--- NOTE | 2016-06-28 19:36 | PCM.DC.MED ---
Discharge Summary Date of Service Jun 28, 2016 Dates of Hospitalization Date of Hospital Admission Jun 25, 2016 at 09:23 Date of Discharge: Jun 28, 2016 Providers: Admitting Physician: Kamryn Schumacher DO Primary Care Physician: Arielle Aguilar DO Attending Physician: Kamryn Schumacher DO Diagnosis at Time of Discharge Diagnosis at Time of Discharge Acute chest pain. Present on admission. Improving Pulmonary embolism. Present on admission. Active Dyspnea on exertion without hypoxemia. Present on admission. Improved Right upper extremity DVT. Present on admission. Active Acute systolic congestive heart failure, present on admission. Active Right perinephric abscess. Present on admission. Resolving Prolonged QTc, chronic. Present on admission. Active Type I diabetes mellitus, chronic. Present on admission Hypothyroidism, chronic. Present on admission Depression and anxiety, chronic. Present on admission Dyslipidemia, chronic. Present on admission Hypertension, chronic. Present on admission Procedures XRay, CTs & MRIs Date of Service: 06/25/[address] ANGIO CHEST PULMONARY EMBOLISM ([id number]) IMPRESSION: 1. Small subsegmental right upper lobe pulmonary embolus. 2. Moderate bilateral pleural effusions. 3. Bilateral lower lobe atelectasis versus pneumonia. 4. Concordant with preliminary interpretation. Dictated and approved by: Lizet Saldivar M.D. on 06/25/2016 at 8:51 Date of Service: 06/25/16 0420 X-RAY CHEST ONE VIEW, PORTABLE ([id number]) IMPRESSION: Prominence of the pulmonary vasculature which may be related to technique but mild venous congestion and/or pneumonia bony lung bases cannot be excluded. Correlate clinically. Dictated by: Farhan Barrera [facility] Interpreted: Lauren Garcia MD on 06/25/2016 at 9:27 Cardiac Echo Impression Echocardiogram Report Interpretation Summary The left ventricle is normal in size. Apical, mid inferior, mid septal and anterior stevenson are severely hypokinetic. The ejection fraction is estimated to be 25-30%. Compared to the prior exam, left ventricular function is significantly decreased. The right ventricle is at the upper limits of normal in size. Right ventricular systolic function is mildly reduced. There is no significant valvular heart disease. Electronically signed by: Vahid Schwartz on Reading Physician:06/25/2016 04:04 PM Brief History Per Admitting Physician: Kamryn Schumacher DO: Patient is a 36-year-old female with Type I diabetes, Graves' disease, SVT s/p ablation and PPM with replacement of new pacemaker after suspected bacterial contamination, history of right-sided perinephric abscess s/p nephrostomy tube, and history of right upper extremity DVT found at last hospitalization ( discharged 06/21/2016) presenting with shortness of breath and chest pain. As noted, the patient was recently hospitalized for DKA and found to have a right upper extremity DVT and was discharged with a prescription for Eliquis, which the patient reports starting yesterday. The patient states that she had shortness of breath with exertion and some chest pain when she was discharged. Patient describes her chest pain as midsternal with radiation to her left arm. She reports her chest pain is exacerbated with deep breathing. She states the chest pain progressively worsened yesterday evening and when she checked her blood pressure, the systolic blood pressure was reportedly 200. The patient said she couldn't withstand the pain any longer and summoned EMS at about 2AM. Patient reports the morphine she received in the ED has helped with the chest pain. The patient reports associated dry cough, some nausea and lightheadedness but otherwise denies fever, chills, syncope, emesis, dysuria, abdominal pain, diarrhea, constipation, vision changes, swelling in her extremities, hemoptysis. In the ED, vitals: 36.5, RR 25 satting 100% on room air, HR 103, BP 151/90. CT chest angio shows a small subsegmental right upper lobe pulmonary embolus, moderate bilateral pleural effusions, and bilateral lower lobe atelectasis versus pneumonia. Also of note, discharge summaries from prior hospitalizations suggest an opioid dependency issue. Hospital Course Patient is a 36-year-old female with Type I diabetes, Graves' disease, SVT s/p ablation and PPM with replacement of new pacemaker after suspected bacterial contamination, and history of right upper extremity DVT found at previous hospitalization (discharged 06/21/2016) presenting with shortness of breath and chest pain. Acute chest pain. Present on admission. Improved - Likely secondary to pulmonary embolism - EKG showed sinus tachycardia with HR 117, LBBB, no change from prior EKGs - Troponin negative x 2 - Echocardiogram revealed severely hypokinetic apical, mid inferior, mid septal and anterior stevenson, the ejection fraction of 25-30%. Compared to the prior exam , left ventricular function is significantly decreased - Continued with Tylenol and Toradol for pain Pulmonary embolism. Present on admission. Active - Identified on CT chest angio - Patient discharged with Eliquis on previous hospitalization. Continued Eliquis Dyspnea on exertion without hypoxemia. Present on admission. Improved - Likely secondary to pulmonary embolism, pleural effusion - No signs of infection clinically - no elevated WBC, fever, chills or cough - Saturating well on room air (>95%) during the hospital stay Right upper extremity DVT. Present on admission. Active - Identified on previous hospitalization from 06/18/2016 - 06/23/2016 - Continued Eliquis Acute systolic congestive heart failure, present on admission. Active - Echocardiogram revealed severely hypokinetic apical, mid inferior, mid septal and anterior stevenson, the ejection fraction of 25-30%. Compared to the prior exam , left ventricular function is significantly decreased - Continued home medications - Discharged with Lasix 40 mg orally daily Right perinephric abscess. Present on admission. Resolving - No fever, leukocytosis or clear SIRS criteria - Continued prior regimen of daptomycin and cefazolin Acute pain. Present on admission. Improved - Discontinued IV ketorolac - Nonpharmacologic measures - Patient with reported opioid dependence following previous hospitalizations where she received Dilaudid IV - Continued with Tylenol and tramadol for pain only Prolonged QTc, chronic. Present on admission. Active - Presented on EKGs from previous hospitalizations - Likely secondary to chronic use of amitriptyline, Zofran - Continued to monitor with EKG Type I diabetes mellitus, chronic. Present on admission - Continued home dose Lantus 15 units AM, and reduced dose Lantus 15 units PM - Lispro low dose correctional Hypothyroidism, chronic. Present on admission. Poorly controlled - Secondary to parathyroidectomy for Graves - Continue home dose levothyroxine 50mcg daily Depression and anxiety, chronic. Present on admission - Continued home dose amitriptyline 50mg Q HS - Continued home dose venlafaxine 150mg daily - Continued home dose Ativan 1mg QID PRN Dyslipidemia, chronic. Present on admission - Continued home dose atorvastatin 80mg Q HS Hypertension, chronic. Present on admission - Continued home lisinopril 20mg daily Patient has been discharged home in a stable condition. Exam Vital Signs (Last) Date Time Temp Pulse Resp B/P Pulse Ox O2 Delivery O2 Flow Rate FiO2 06/28/16 12:26 37.1 06/28/16 12:22 83 105/76 06/28/16 12:00 22 100 Nasal Cannula 2.00 06/25/16 11:51 100 Exam General: No acute distress, well-developed, well-nourished, appropriately interactive HEENT: Normocephalic, atraumatic. External ears without defect. Pupils equal, round, and reactive to light and accommodation. Anicteric sclerae, moist conjunctivae, and no lid lag. Oropharynx free of erythema and cobble stoning with moist mucosa. Neck: Supple. Well-healed surgical incision at base of neck. Cardiovascular: Regular rate and rhythm with no murmurs, rubs, or gallops appreciated Pulmonary: Clear to auscultation bilaterally with no crackles, wheezes, or rhonchi. Bases with decreased breath sounds. Abdomen: Bowel tones present. Soft, nontender, nondistended. Extremities: No clubbing, cyanosis, edema, or lymphadenopathy appreciated. Skin: Normal temperature, turgor, and texture; no rash, ulcers, or subcutaneous nodules appreciated. Left upper chest with healing surgical incision. Right upper chest with healing surgical incision. Neurological: Cranial nerves grossly intact. Psychiatric: Normal mood and affect. Alert and oriented to person, place, and time. Test 06/25/16 04:50 06/26/16 03:45 06/27/16 03:30 06/27/16 03:42 Prothrombin Time 11.4sec (8.1-12.5) Prothromb Time International Ratio 1.06ratio Activated Partial Thromboplast Time 19.1sec (22.8-33.0) Pro-B-Type Natriuretic Peptide 5479pg/mL (0-130) Hold [place] Top Tube Received (Received) Neutrophils (%) (Auto) 59.7% (40-74) Lymphocytes (%) (Auto) 28.5% (14-46) Monocytes (%) (Auto) 7.8% (4-12) Eosinophils (%) (Auto) 3.4% (0-5) Basophils (%) (Auto) 0.4% (0-3) Magnesium Level 2.0mg/dL (1.6-2.6) Total Bilirubin 0.3mg/dL (0.0-1.2) Aspartate Amino Transf (AST/SGOT) 14U/L (0-50) Alanine Aminotransferase (ALT/SGPT) 5U/L (0-32) Alkaline Phosphatase 144U/L (25-150) Total Protein 6.4g/dL (6.4-8.4) Albumin 3.3g/dL (3.4-5.0) Hold Purple Top Tube Received (Received) Hold [place] Top Tube Received (Received) Test 06/28/16 04:05 06/28/16 14:07 White Blood Count 6.2th/mm3 (3.8-10.1) Red Blood Count 3.83mil/mm3 (3.90-5.20) Hemoglobin 10.1g/dL (12.0-15.6) Hematocrit 34.5% (35.0-46.0) Mean Corpuscular Volume 90.1fL (81-100) Mean Corpuscular Hemoglobin 26.4pg (27.0-35.0) Mean Corpuscular Hemoglobin Concent 29.3% (32.0-37.0) Red Cell Distribution Width 17.6% (12.3-15.4) Platelet Count 258bil/L (150-400) Sodium Level 139mEq/L (134-144) Potassium Level 4.6mEq/L (3.5-5.2) Chloride Level 99mEq/L (97-108) Carbon Dioxide Level 27mmol/L (18-29) Blood Urea Nitrogen 13mg/dL (6-20) Creatinine 0.64mg/dL (0.57-1.00) Estimat Glomerular Filtration Rate 149mL/min (>59) Glucose Level 223mg/dL (60-99) Calcium Level 8.7mg/dL (8.5-10.1) Troponin T < 0.010ug/L (0.0-0.011) Discharge Medications Discharge Medications Amitriptyline (Amitriptyline) 25 Mg Tab 50-100 MG PO HS (Reported) Aspirin Chew (Aspirin Chew) 81 Mg Chew 81 MG PO QAM (Reported) Atorvastatin (Lipitor) 80 Mg Tablet 80 MG PO HS (Reported) Cephalexin (Cephalexin) 500 Mg Capsule 500 MG PO QID Prescribed by: SEBLE LEONARDO MD Furosemide (Lasix) 40 Mg Tablet 40 MG PO DAILY Prescribed by: BRENNEN HILL DO Insulin Aspart (NovoLOG U-100 Pen) 100 Unit/Ml Insuln.pen 1-10 UNITS SQ ASDIRECTED (Reported) PER SLIDING SCALE Insulin Glargine (Lantus U100 Insulin Vial) 100 Unit/Ml Vial 15 UNIT SUBQ QAM ( Reported) TAKE LANTUS 15 UNITS IN AM AND 20 UNITS AT HS Insulin Glargine (Lantus U100 Insulin Vial) 100 Unit/Ml Vial 20 UNIT SUBQ HS ( Reported) TAKE LANTUS 15 UNITS IN AM AND 20 UNITS AT HS Levothyroxine (Levothyroxine) 200 Mcg Tablet 200 MCG PO QAM (Reported) TAKE LEVOTHYROXINE 200 MCG W/ 50 MCG TABLET (=250 MCG) TOTAL Levothyroxine (Levothyroxine) 50 Mcg Tablet 50 MCG PO QAM (Reported) TAKE LEVOTHYROXINE 200 MCG W/ 50 MCG TABLET (=250 MCG) TOTAL Lisinopril (Lisinopril) 20 Mg Tablet 20 MG PO QAM (Reported) Metoprolol Succinate ER (Metoprolol Succinate ER) 100 Mg Tab.er.24h 100 MG PO BID (Reported) Pantoprazole DR (Pantoprazole DR) 40 Mg Tablet.dr 40 MG PO BIDWM (Reported) Venlafaxine ER (Venlafaxine ER) 150 Mg Tab.er.24 150 MG PO QAM (Reported) As needed Apixaban (Eliquis) 5 Mg Tablet 5 MG PO DIRECTED PRN PRN DVT 2 tablets twice per day 10 days, then 1 tablet twice per day indefinitely. Prescribed by: SEBLE LEONARDO MD Cyclobenzaprine (Cyclobenzaprine) 10 Mg Tablet 10 MG PO TID PRN PRN Spasm ( Reported) Lorazepam (Ativan) 1 Mg Tablet 1 MG PO QID PRN PRN For Anxiety (Reported) Ondansetron ODT (Ondansetron ODT) 8 Mg Tab.rapdis 8 MG PO TID PRN PRN For Nausea Prescribed by: SEBLE LEONARDO MD Additional med instructions During this hospitalization you were started on new medication. Unless otherwise directed by a physician, please follow these medication instructions. Note that your physician may continue to change your medication regimen. New medication: -Furosemide 40mg. Take one tablet by mouth daily in the morning Continue your other home medications. Take them as directed Followup Plan Follow-up plan Please follow up with your primary care physician, Dr. Shira Aguilar, in about one week. You will need to have lab work (Basic Metabolic Panel) drawn before that visit. Bring these instructions with you to the lab. Discharge Diet: Low fat, Low Sodium, Heart Healthy, Diabetic Discharge Activity: Limited until seen by PCP Patient Instructions Track your weight as this is an indicator of your body's fluid retention. 1. Weigh yourself every day at the same time and write it down. 2. Take your weight log to your doctor visits. 3. Call your doctor if you gain 3-5 pounds over 2-3 days. 4. Your weight today is 235 lbs. Try to reduce the amount of sodium in your diet. Limit yourself to no more than 1500mg of sodium daily. Check food labels. Remove salt shaker from the dinner table. Follow-up Provider: Arielle Aguilar DO Follow-up with PCP in: 1 week (By 07/03/2016) Time spent Greater than 30 minutes was spent in preparation of discharge with greater than 50% of that time dedicated to patient counseling and coordination of care. . Attending Statement The patient was seen and examined together with Dr. Leonardo on 06/28/2016 and I agree with the history, exam and plan as outlined in the note above. . copies to: Arielle Aguilar Oksana S DO Jun 28, 2016 19:36 Tom Garay MD Jun 29, 2016 07:32
== END 2016-06-28 16:26 | disposition home or self-care (01) | DRG 134 ==
LOC: SED 04:14 → INTOOBSV 09:23 → OFED 09:23 → OBSVTOIN 09:23 → PCC 10:35
PROVIDERS: ADMIT Neuromusculoskeletal Medicine & OMM; ATTEND Neuromusculoskeletal Medicine & OMM
DX: I26.99 Other pulmonary embolism without acute cor pulmonale (principal); I50.21 Acute systolic (congestive) heart failure; N15.1 Renal and perinephric abscess; I82.621 Acute embolism and thrombosis of deep veins of right upper extremity; I10 Essential (primary) hypertension; E10.9 Type 1 diabetes mellitus without complications; E03.9 Hypothyroidism, unspecified; F41.9 Anxiety disorder, unspecified; F32.9 Major depressive disorder, single episode, unspecified; E78.5 Hyperlipidemia, unspecified

== ENCOUNTER 2016-07-02 19:29 | Inpatient (IN) | payer OTHER ==
[~2016-07-02] VITALS: Ht 162.6 cm; Wt 99.2 kg
[~2016-07-02 19:29] MED LIST changes: +FURO-128 PO
[2016-07-02 19:47] VITALS: BP 162/99; PULSE 120; RESP 30; O2SAT 100
--- NOTE | 2016-07-02 19:59 | ED.REPORT ---
HPI-Chest Pain Under 40 Date of Service July 02, 2016 ED Provider: Donavan Reid MD 36 y/o female with a hx of Type I DM, PE, Graves' diseases, SVT s/p ablation and PPM with replacement of new pacemaker after suspected bacterial contamination, right sided perinephric abscess s/p nephrostomy tube and right upper extremity DVT presents to the ED complaining of chest pain and tachycardia , onset today. Associated sx include nausea, SOB, non-productive cough since Friday, mild abdominal pain and fluctuating weight. The pt denies fever, diaphoresis, lightheadedness, dysuria and extremity swelling. She also denies missing any of her medications. Nursing Notes Stated Complaint: CHEST PAIN, BLOOD PRESSURE Chief Complaint: General Complaint Nursing Notes Reviewed: Yes Allergies: Coded Allergies: amoxicillin (Verified Allergy, Severe, SHORTNESS OF BREATH, 06/18/16) Sulfa (Sulfonamide Antibiotics) (Verified Allergy, Intermediate, RASH, ) adhesive tape (Verified Allergy, Intermediate, REDNESS, 06/18/16) promethazine (Verified Allergy, Intermediate, SIDE EFFECTS JITTERY, ) oxycodone (Verified Adverse Reaction, Intermediate, SIDE EFFECT HALLUCINATIONS AND VOMITING, 06/18/16) Scheduled Amitriptyline (Amitriptyline) 25 Mg Tab 50-100 MG PO HS Aspirin Chew (Aspirin Chew) 81 Mg Chew 81 MG PO QAM Atorvastatin (Lipitor) 80 Mg Tablet 80 MG PO HS Cephalexin (Cephalexin) 500 Mg Capsule 500 MG PO QID Furosemide (Lasix) 40 Mg Tablet 40 MG PO DAILY Insulin Aspart (NovoLOG U-100 Pen) 100 Unit/Ml Insuln.pen 1-10 UNITS SQ ASDIRECTED PER SLIDING SCALE Insulin Glargine (Lantus U100 Insulin Vial) 100 Unit/Ml Vial 15 UNIT SUBQ QAM TAKE LANTUS 15 UNITS IN AM AND 20 UNITS AT HS Insulin Glargine (Lantus U100 Insulin Vial) 100 Unit/Ml Vial 20 UNIT SUBQ HS TAKE LANTUS 15 UNITS IN AM AND 20 UNITS AT HS Levothyroxine (Levothyroxine) 200 Mcg Tablet 200 MCG PO QAM TAKE LEVOTHYROXINE 200 MCG W/ 50 MCG TABLET (=250 MCG) TOTAL Levothyroxine (Levothyroxine) 50 Mcg Tablet 50 MCG PO QAM TAKE LEVOTHYROXINE 200 MCG W/ 50 MCG TABLET (=250 MCG) TOTAL Lisinopril (Lisinopril) 20 Mg Tablet 20 MG PO QAM Metoprolol Succinate ER (Metoprolol Succinate ER) 100 Mg Tab.er.24h 100 MG PO BID Pantoprazole DR (Pantoprazole DR) 40 Mg Tablet.dr 40 MG PO BIDWM Venlafaxine ER (Venlafaxine ER) 150 Mg Tab.er.24 150 MG PO QAM Scheduled PRN Apixaban (Eliquis) 5 Mg Tablet 5 MG PO DIRECTED PRN PRN DVT 2 tablets twice per day 10 days, then 1 tablet twice per day indefinitely. Cyclobenzaprine (Cyclobenzaprine) 10 Mg Tablet 10 MG PO TID PRN PRN Spasm Lorazepam (Ativan) 1 Mg Tablet 1 MG PO QID PRN PRN For Anxiety Ondansetron ODT (Ondansetron ODT) 8 Mg Tab.rapdis 8 MG PO TID PRN PRN For Nausea General Time Seen by MD: 19:57 Chief Complaint Chest pain Hx Obtained From: Patient Arrived By: Walk-in Sudden in Onset?: Yes Onset Occurred: 31 - 45 minutes ago Symptom Duration: Since onset Location: : Chest left Quality: Painful Radiation: : Does not radiate Severity: Current: Mild Severity: Maximum: Mild Recent Healthcare: Recent doctor visit Similar Sx Previous: Yes Past Medical History Past Medical History Type I diabetes Graves' disease 1991 PTSD History of medication noncompliance SVT Heart Block Anxiety Uterine fibroids Hiatal hernia Renal abscess Pulmonary Embolism Past Surgical History Cholecystectomy Partial thyroidectomy Right oopherectomy Right abdominal hernia repair with appendectomy SVT ablation on 03/26/16 Pacemaker insertion 03/27/16 for complete heart block Pacemaker replacement 06/2016 Right percutaneous nephrostomy Left foot surgery Family History Father with type II diabetes currently on dialysis. Mother had knee problems half brother had type I diabetes and at age 33 due to possible hypoglycemia Smoking History Never Smoker Social History Alcohol Use: Denies alcohol use Drug Use: Denies drug use Other Social History: Good social support Ambulatory Status Independent Review of Systems Constitutional: Denies: Fever Respiratory: Reports: Non-productive cough, Shortness of breath Cardiovascular: Reports: Chest pain, Denies: Edema GI: Reports: Abdominal pain, Nausea Skin: Denies Diaphoresis Neurologic: Denies: Lightheaded Complete sys rev & neg: except as marked. Female: Denies: Dysuria Physical Exam Initial Vital Signs Vital Signs (First) Date Time Temp Pulse Resp B/P Pulse Ox O2 Delivery O2 Flow Rate FiO2 07/02/16 19:47 36.7 120 30 162/99 100 Room Air Initial VS: Reviewed Head / Eyes: Atraumatic, Normocephalic, PERRL ENT: Mucous membranes moist, Conjunctiva normal, No scleral icterus Neck: Supple, Non-tender, Full range of motion Extremities: Vascular intact, Neuro intact, No swelling, No tenderness Skin: Warm, Dry, No cyanosis Neurologic: Alert, Oriented, Nonfocal Respiratory / Chest: Atraumatic, Breath sounds NL, Breath sounds = bilat Tachypnea Cardiovascular: Regular rhythm, Heart sounds NL, No murmurs Heart Rate / Rhythm: Positive: Bradycardia Jugular venous distention. Bilateral pedal edema Abdomen: Soft, Non-tender, No guarding, No rebound Interpretation & Diagnostics Lab Results Interpretation Result Diagram: 07/02/16200207/02/162002 Test 07/02/16 20:03 White Blood Count 8.0th/mm3 (3.8-10.1) Red Blood Count 4.95mil/mm3 (3.90-5.20) Hemoglobin 12.7g/dL (12.0-15.6) Hematocrit 42.8% (35.0-46.0) Mean Corpuscular Volume 86.5fL (81-100) Mean Corpuscular Hemoglobin 25.7pg (27.0-35.0) Mean Corpuscular Hemoglobin Concent 29.7% (32.0-37.0) Red Cell Distribution Width 17.6% (12.3-15.4) Platelet Count 265bil/L (150-400) Neutrophils (%) (Auto) 74.7% (40-74) Lymphocytes (%) (Auto) 17.2% (14-46) Monocytes (%) (Auto) 5.6% (4-12) Eosinophils (%) (Auto) 1.7% (0-5) Basophils (%) (Auto) 0.6% (0-3) Erythrocyte Sedimentation Rate 26mm/hr (0-32) Prothrombin Time 10.8sec (8.1-12.5) Prothromb Time International Ratio 1.01ratio Activated Partial Thromboplast Time 19.6sec (22.8-33.0) Sodium Level 134mEq/L (134-144) Potassium Level 4.0mEq/L (3.5-5.2) Chloride Level 94mEq/L (97-108) Carbon Dioxide Level 23mmol/L (18-29) Blood Urea Nitrogen 4mg/dL (6-20) Creatinine 0.54mg/dL (0.57-1.00) Estimat Glomerular Filtration Rate 181mL/min (>59) Glucose Level 106mg/dL (60-99) Calcium Level 10.1mg/dL (8.5-10.1) Magnesium Level 1.8mg/dL (1.6-2.6) Total Bilirubin 0.6mg/dL (0.0-1.2) Aspartate Amino Transf (AST/SGOT) 22U/L (0-50) Alanine Aminotransferase (ALT/SGPT) 15U/L (0-32) Alkaline Phosphatase 178U/L (25-150) Pro-B-Type Natriuretic Peptide 3552pg/mL (0-130) Total Protein 8.8g/dL (6.4-8.4) Albumin 4.2g/dL (3.4-5.0) ECG Interpretation ECG Interpretation: Sinus tachycardia. Rate 122 Nonspecific IVCD with LAD LVH with secondary repolarization abnormality Acute inferior infarct Acute probable anterolateral infarct. Time: 19:46 Interpreted by: ED physician X-Ray Chest Interpretation Chest Xray Interpretation: IMPRESSION: Low lung volumes and scattered bibasilar atelectasis Dictated by: Олег Ventura M.D. on 07/02/2016 at 21:21 Approved by: Олег Ventura M.D. on 07/02/2016 at 21:22 View: Portable, 1 view Interpretation / Wet Read by: Interpret - Radiologist CT Chest Interpretation Impression: No pulmonary emboli identified. No aorta dissection evident. Modertaly large bilateral pleural effusions with adjacent lung base atelectasis. Mild cardiomegaly with pacemaker present. Status post cholecystectomy. Signed by Luciano Castellon M.D. 07/02/16; 1793. Study type: CT pulm angiogram Interpretation / Wet Read by: Interpret - Radiologist Re-Eval/Medical Decision Med Decision/Clinical Course 36-year-old highly complex patient with chest pain and tachycardia. ECG is difficult to interpret however after interpretation of her pacemaker by cardiology it is clearly paced. Initial troponin is normal. She is known to have congestive failure and has an elevated proBNP without overt failure on chest x-ray or hypoxemia. There is a history of DVT in the past however DVT is not demonstrated on chest CT. She does have bilateral pleural effusions. Given Lasix 40 mg IV in the emergency department and plan was to switch her from elequis to heparin. Admitted to the hospitalist service in stable condition. Source of Hx: Old records Re-Evaluation/Progress : Time of Eval: 21:29 Patient Status: Condition improved Re-Evaluation/Progress Note: Rechecked pt who feels better. Informed pt of need for admission. Pt understands and agrees with the plan for admission. All questions addressed. Consultation : Referral / Consult Name: Sean Jean Baptiste MD Consulted With: Hospitalist Call Returned at: 21:51 Shipping Order Clerk: Will see patient, Agrees with eval, Agrees with plan, Accepts admit Counseled Regarding: Diagnosis, Need for admission Discharge & Departure Primary Impression: Chest pain Chest pain type: precordial pain Qualified Code: R07.2 - Precordial pain Disposition: ADMITTED TO HOSPITAL Discharge Condition All VS Reviewed: Yes Referrals: Arielle Aguilar DO (PCP) Scribarie Attestation Portions of this note were transcribed by Fam Alvarez. I, , personally performed the history, physical exam and medical decision-making;I reviewed and confirmed the accuracy of the information in the transcribed note. Signed by Moise Brady. 07/02/16 TIME copies to: Arielle Aguilar Donald L MD July 02, 2016 19:59 Fam Alvarez July 02, 2016 21:45
[2016-07-02 20:12] LABS: BASOPHILS % (AUTO) 0.6 % (0-3); EOSINOPHILS % (AUTO) 1.7 % (0-5); MONOCYTES % (AUTO) 5.6 % (4-12); Mean Corpuscular Hemoglobin 25.7 pg (27.0-35.0); Mean Corpuscular Volume 86.5 fL (81-100); NEUTROPHILS % (AUTO) 74.7 % (40-74); Platelet Count 265 bil/L (150-400)
[2016-07-02] MEDS ORDERED: Ondansetron 2 mg/mL 2 mL Inj IVPUSH PRN (20:15)
[2016-07-02] MEDS ORDERED: HYDROmorphone 1 mg/mL Inj IVPUSH PRN (20:15)
[2016-07-02 20:28] LABS: INR 1.01 ratio
[2016-07-02 20:30] VITALS: BP 147/95; PULSE 118; RESP 27; O2SAT 100
[2016-07-02 20:33] LABS: TROPONIN T < 0.010 ug/L (0.0-0.011)
[2016-07-02 20:43] LABS: Magnesium 1.8 mg/dL (1.6-2.6)
--- NOTE | 2016-07-02 21:24 | DRSVH ---
PROCEDURE: X-RAY CHEST ONE VIEW, PORTABLE ([id number]) INDICATIONS: chest pain TECHNIQUE: One view of the chest was acquired. COMPARISON: None. FINDINGS: Surgical changes and devices: Cardiac pacer. Lungs and pleura: No pleural effusions or pneumothorax. Low lung volumes and scattered atelectasis. Mediastinum: Mediastinal contours appear normal. Heart size is normal. Bones and chest wall: No suspicious bony lesions. Overlying soft tissues appear unremarkable. IMPRESSION: Low lung volumes and scattered bibasilar atelectasis Dictated by: Олег Ventura M.D. on 07/02/2016 at 21:21 Approved by: Олег Ventura M.D. on 07/02/2016 at 21:22
[2016-07-02] MEDS ORDERED: LORazepam 0.5 mg Tablet PO ONE (21:30)
[2016-07-02] MEDS ORDERED: Furosemide 10 mg/mL 4 mL Inj IVPUSH ONE (21:30)
[2016-07-02] MEDS ORDERED: Polyethylene Glycol (PEG) 17 Gm Powder PO PRN (22:35)
[2016-07-02] MEDS ORDERED: Alum-Mag Hydrox-Simeth 30 mL Suspension PO PRN (22:35)
[2016-07-02] MEDS ORDERED: LORazepam 1 mg Tablet PO PRN (22:40)
--- NOTE | 2016-07-02 22:42 | CONS ---
[address] [address] CONSULTATION REPORT PATIENT: KAYLEE TURNER : 1980 MR#: [id number] ADMIT: 07/02/2016 JOB ID: [id number] DATE OF SERVICE: 07/02/2016 CHIEF COMPLAINT: Shortness of breath and chest pain. HISTORY OF PRESENT ILLNESS: The patient is an extremely complex, 36-year-old woman with longstanding diabetes, as well as SVT s/p ablation. She comes in after she has had chest pain off and on all day. Her story basically began back in March 2016 when she developed atrioventricular lin reciprocating tachycardia, requiring electrophysiology study and ablation. Unfortunately, the procedure was complicated by complete heart block and she required dual-chamber permanent pacemaker implant in the left infraclavicular fossa. This was placed March 27, 2016. The patient got along well with her pacemaker, but then unfortunately she developed perinephric abscess and was hospitalized for this indication on May 20, 2016, through June 04, 2016. She had MSSA bacteremia and was closely followed by infectious disease team, but there was concern that the device was either seeded with bacteremia or was the culprit for her bacteremia, and as such, she underwent explantation of the device with Dr. Del Valle on May 27, 2016, with temporary permanent pacemaker through the right internal jugular vein. Of note, the leads and the generator were all explanted. May 31, patient was reimplanted on the right side. The dual-chamber permanent pacemaker and MRI compatible lean. The pacemaker cultures grew out coag-negative Staph, which I think are contaminants. This is not the same organism as grew out of her perinephric abscess which was clindamycin resistant, methicillin sensitive, Staph aureus. Patient was advised to have cefazolin and continue also daptomycin. Dr. Ambrose's note suggested cefazolin through June 17 and daptomycin through June 24. Patient also had a PICC line placed and went home. Unfortunately, since then she bounced back three times and today she is in the ED basically for the 4th time. She was hospitalized June 05 through June 09 with weakness and was diagnosed with volume depletion. Then, she bounced back, June 18 through , with diabetic ketoacidosis. Her A1c at that time was 8.8. Troponins were negative x1. Her blood glucose on admission was 542. Unfortunately, she was diagnosed at that time with right upper extremity deep venous thrombosis. Then, she bounced back, June 25 to June 28, and at that time was diagnosed with small subsegmental right upper lobe pulmonary embolism. Her ejection fraction was 25% to 30% and she had apical, mid inferior and mid septal and anterior severe hypokinesis. Compared to prior transesophageal echocardiogram, May 22, 2016, cardiomyopathy is new. I looked at the echo personally and I think she also has a pericardial effusion. The patient was discharged home with all her old meds, with the exception of new Lasix 40 mg daily and new Eliquis 5 mg twice a day. She was just send home June 28, but that she has been having chest discomfort that feels like aching in her chest. It is not necessarily pressure-like. It is not necessarily modulated by movement or deep breathing. She says she has a difficult time lying in bed. She denies cough, fevers or chills, or passing out spells or palpitations. PAST MEDICAL HISTORY: 1. Diabetes type 1 for the past 28 years. 2. SVT ablation March 2016 complicated by complete heart block requiring dual-chamber permanent pacemaker on the left infraclavicular fossa. 3. MSSA, perinephric abscess. The organism was felt to be atypical for urinary tract infection and there was a concern that the perinephric abscess was either seeded from pacemaker or was at risk for seeding the pacemaker so the device was explanted. The cultures did not show MSSA. 4. Then, the device was reimplanted on the right side with all new wire, May 27, 2016. This procedure unfortunately was complicated by right upper extremity venous thromboembolism and small pulmonary embolism and what appears to be cardiomyopathy with ejection fraction of about 25%, 30%. Troponins were negative, but ischemic evaluation has never been performed. The patient was treated with gentle diuresis during her most recent hospitalization June 25 to , but she did not really put out very much since her were about one liter. 5. History of Graves disease, status post thyroidectomy. 6. Anxiety. 7. Uterine fibroids. 8. Hiatal hernia. PAST SURGICAL HISTORY: 1. Cholecystectomy. 2. Status post partial thyroidectomy. 3. Status post . 4. Status post abdominal hernia repair with appendectomy. 5. . 6. Tonsillectomy. 7. Laser eye surgery for diabetic retinopathy. FAMILY HISTORY: Patient has a strong family history of heart disease. Her father had bypass operation in his 40s and also has multiple stents. SOCIAL HISTORY: The patient is currently not working outside the home. She lives in [place] and today her dad brought her to the hospital. She is a nonsmoker. Her dad is not available at the bedside. He went to get a snack. REVIEW OF SYSTEMS: No fevers, no chills. No bright red blood per rectum. No hematuria. Otherwise 10-point review of systems is negative. HOME MEDICATIONS: 1. Aspirin 81 mg daily. 2. Lipitor 80 mg daily. 3. Toprol-XL 100 mg twice a day. 4. Lisinopril 20 mg daily. 5. Eliquis 5 mg twice a day. 6. Amitriptyline 25 mg daily. 7. Levothyroxine 250 mcg daily. 8. Lorazepam 1 mg four times a day as needed for anxiety. 9. Zofran as needed. 10. Protonix 40 mg twice a day. PHYSICAL EXAMINATION: Vital signs: Temperature 36.7, pulse 120 beats per minute. She had A-sensed, V-paced. Respiratory rate 30. Blood pressure 162/99, satting 100% on room air. Overweight woman. Appears quite anxious but in no respiratory distress. Eyes: No scleral icterus. Neck supple. No carotid bruits. Neck veins are up at about 8 cm. Heart sounds are distant. Normal S1, S2. She actually has an S3 that I can hear but no murmurs or rub. Lungs with diminished breath sounds bilaterally at bases. Abdomen is soft, but tender to palpation with positive bowel sounds and no hepatosplenomegaly. Extremities are warm with no clubbing, cyanosis, or edema. EKG shows that she is V-paced with LBBB bundle-morphology. I did a quick device check because I was not sure and she appears to be A-sensed, V-paced at this moment at a rate of 120 beats per minute. X-ray ordered and pending. Labs ordered and pending. Impedance on the leads is stable. I did not check capture threshold. ASSESSMENT AND PLAN: In summary, this is a very complicated, 36-year-old woman with clinically what appears to be stress cardiomyopathy due to compensated heart failure causing severe dyspnea on exertion, but I feel like her cardiomyopathy has not been thoroughly worked up. In particular, this patient has had diabetes for 28 years. Her glycemic control is subpar, and she is at risk for coronary artery disease. I think we need to do cardiac catheterization to definitively rule out ischemia. PLAN: 1. Recommend stopping Eliquis and starting her on heparin drip. 2. Recommend proceeding with limited echocardiogram and looking for evidence of pericardial effusion. 3. Recommend keeping her n.p.o. after midnight and considering cardiac catheterization to rule out ischemia as the cause of her cardiomyopathy. 4. In the interim recommend continuing her on Lasix but changing it to IV and try to give her 40 mg of Lasix IV and see if she can be diuresed and feeling better. 5. Continue beta gloria. She was discharged home on Toprol-XL twice a day. I recommend giving this to her as scheduled and see if we can help her achieve normal sinus rhythm rather than sinus tachycardia and prevent arrhythmia. Recommend continuing lisinopril if blood pressure and kidney function allows. 6. She says she was started on spironolactone by her primary care provider but has not filled it yet. I think we should check her kidney function and make sure it is safe to initiate this medication before we go ahead and start. Thank you very much for the opportunity to see the patient. LYNN
[2016-07-02] MEDS ORDERED: Glucose 40% Oral Gel 15 Gm Tube PO PRN (22:45)
[2016-07-02 23:12] VITALS: BP 141/88; PULSE 114; PULSE 116; RESP 20; O2SAT 100
--- NOTE | 2016-07-02 23:22 | PCM.HPMED ---
Subjective Date of Service July 02, 2016 Primary Provider: Admitting Physician: Sean Jean Baptiste MD Primary Care Physician: Arielle Aguilar DO Attending Physician: Sean Jean Baptiste MD Chief Complaint: chest pain History of Present Illness: Roseline Frey is a 36 year old woman with a PMH of DM1 for 30 years with episodes of DKA, Paroxysmal VT and 3rd degree heart block s/p pacemaker implantation complicated by lead infection and subsequent replacement, PE, SVT in right arm, Right renal abscess, depression and anxiety, HTN, and CAD who presents with ongoing chest pain having been in the hospital for most of the previous month for SVT and subsequent PE, DKA and chest pain. She is well known to cardiology which are actively following the case. She is currently on Eliquis , which will be switched to Heparin per cardiology, she is further scheduled to have coronary catheterization in 2 days time. She relates that she is having active chest pain, and pain with deep inspiration. She denies nausea, vomiting, diarrhea, constipation, diaphoresis, or anxiety. In the ED she was found to have an elevated BNP, negative Trop, and elevated Alk Phos consistent with values from her prior hospitalization; as well as HTN Review of Systems: Comprehensive ROS negative except as listed above in the HPI Allergies Coded Allergies: amoxicillin (Verified Allergy, Severe, SHORTNESS OF BREATH, 06/18/16) Sulfa (Sulfonamide Antibiotics) (Verified Allergy, Intermediate, RASH, ) adhesive tape (Verified Allergy, Intermediate, REDNESS, 06/18/16) promethazine (Verified Allergy, Intermediate, SIDE EFFECTS JITTERY, ) oxycodone (Verified Adverse Reaction, Intermediate, SIDE EFFECT HALLUCINATIONS AND VOMITING, 06/18/16) Home Medications Amitriptyline (Amitriptyline) 25 Mg Tab 50-100 MG PO HS Aspirin Chew (Aspirin Chew) 81 Mg Chew 81 MG PO QAM Atorvastatin (Lipitor) 80 Mg Tablet 80 MG PO HS Cephalexin (Cephalexin) 500 Mg Capsule 500 MG PO QID Furosemide (Lasix) 40 Mg Tablet 40 MG PO DAILY Insulin Aspart (NovoLOG U-100 Pen) 100 Unit/Ml Insuln.pen 1-10 UNITS SQ ASDIRECTED PER SLIDING SCALE Insulin Glargine (Lantus U100 Insulin Vial) 100 Unit/Ml Vial 15 UNIT SUBQ QAM TAKE LANTUS 15 UNITS IN AM AND 20 UNITS AT HS Insulin Glargine (Lantus U100 Insulin Vial) 100 Unit/Ml Vial 20 UNIT SUBQ HS TAKE LANTUS 15 UNITS IN AM AND 20 UNITS AT HS Levothyroxine (Levothyroxine) 200 Mcg Tablet 200 MCG PO QAM TAKE LEVOTHYROXINE 200 MCG W/ 50 MCG TABLET (=250 MCG) TOTAL Levothyroxine (Levothyroxine) 50 Mcg Tablet 50 MCG PO QAM TAKE LEVOTHYROXINE 200 MCG W/ 50 MCG TABLET (=250 MCG) TOTAL Lisinopril (Lisinopril) 20 Mg Tablet 20 MG PO QAM Metoprolol Succinate ER (Metoprolol Succinate ER) 100 Mg Tab.er.24h 100 MG PO BID Pantoprazole DR (Pantoprazole DR) 40 Mg Tablet.dr 40 MG PO BIDWM Venlafaxine ER (Venlafaxine ER) 150 Mg Tab.er.24 150 MG PO QAM Scheduled PRN Apixaban (Eliquis) 5 Mg Tablet 5 MG PO DIRECTED PRN PRN DVT 2 tablets twice per day 10 days, then 1 tablet twice per day indefinitely. Cyclobenzaprine (Cyclobenzaprine) 10 Mg Tablet 10 MG PO TID PRN PRN Spasm Lorazepam (Ativan) 1 Mg Tablet 1 MG PO QID PRN PRN For Anxiety Ondansetron ODT (Ondansetron ODT) 8 Mg Tab.rapdis 8 MG PO TID PRN PRN For Nausea PMH DM1 Graves disease PE SVT 3rd degree heart block s/p pacer implantation infected pacer s/p replacement SVT s/p ablation R perinephritic abscess s/p nephrostomy tubes Surgical History Cholecystectomy Partial thyroidectomy Right oopherectomy Right abdominal hernia repair with appendectomy SVT ablation on 03/26/16 Pacemaker insertion 03/27/16 for complete heart block Pacemaker replacement 06/2016 Right percutaneous nephrostomy Left foot surgery Family History Father with type II diabetes currently on dialysis. Mother had knee problems half brother had type I diabetes and at age 33 due to possible hypoglycemia Social History Hx Alcohol Use: No Hx Substance Use: No Smoking Status: Never Smoker Exam Vital Signs Vital Sign - Last Date Time Temp Pulse Resp B/P Pulse Ox O2 Delivery O2 Flow Rate FiO2 07/02/16 20:30 118 27 147/95 100 Room Air 07/02/16 19:47 36.7 Exam Gen: a/o x3 pleasant cooperative woman in mild acute distress secondary to chest pain Neck: Supple non tender, Full ROM, mild JVD HEENT: PERRL, EOMI, no scleral icterus, no conjunctival pallor, mucous membranes moist CV: RRR, no murmurs rubs or gallops, subq pacer Resp: Lungs CTA BL, no wheezing rales or rhonchi Abd: Soft, non tender, no organomegaly Extr: Mild BL LE edema, no cyanosis or clubbing Neuro: CN 2-12 grossly intact, no focal neurologic deficit Psych: Pleasant and appropriate mood and affect. Lab and Diagnostics Labs Item Value Date Time Red Blood Count 4.95 mil/mm3 07/02/162002 Mean Corpuscular Hemoglobin 25.7 pg L 07/02/162002 Mean Corpuscular Hemoglobin Concent 29.7 % L 07/02/162002 Red Cell Distribution Width 17.6 % H 07/02/162002 Neutrophils (%) (Auto) 74.7 % H 07/02/162002 Lymphocytes (%) (Auto) 17.2 % 07/02/162002 Monocytes (%) (Auto) 5.6 % 07/02/162002 Eosinophils (%) (Auto) 1.7 % 07/02/162002 Basophils (%) (Auto) 0.6 % 07/02/162002 Erythrocyte Sedimentation Rate 26 mm/hr 07/02/162002 Estimat Glomerular Filtration Rate 181 mL/min 07/02/162002 Calcium Level 10.1 mg/dL 07/02/162002 Magnesium Level 1.8 mg/dL 07/02/162002 Total Bilirubin 0.6 mg/dL 07/02/162002 Aspartate Amino Transf (AST/SGOT) 22 U/L 07/02/162002 Alanine Aminotransferase (ALT/SGPT) 15 U/L 07/02/162002 Alkaline Phosphatase 178 U/L H 07/02/162002 Troponin T < 0.010 ug/L 07/02/162002 Pro-B-Type Natriuretic Peptide 3552 pg/mL H 07/02/162002 Total Protein 8.8 g/dL H 07/02/162002 Albumin 4.2 g/dL 07/02/162002 Prothrombin Time 10.8 sec 07/02/162002 Prothromb Time International Ratio 1.01 ratio 07/02/162002 Activated Partial Thromboplast Time 19.6 sec L 07/02/162002 Result Diagram: 07/02/16200207/02/162002 X-Rays, CTs and MRIs X-RAY CHEST ONE VIEW, PORTABLE IMPRESSION: Low lung volumes and scattered bibasilar atelectasis Dictated by: Олег Ventura M.D. on 07/02/2016 at 21:21 Approved by: Олег Ventura M.D. on 07/02/2016 at 21:22 CT pulmonary angiogram No PE identified, no aortic dissection Moderately large BL pleural effusion with adjacent lung base atelectasis Mild cardiomegaly with pacer present Status post cholecystectomy Per zulma read . Assessment & Plan Roseline Frey is a medically complex 36 year old woman who has been hospitalized for much of the last month for PE, DKA, and SVT related complications; she presents with chest pain and a strong cardiovascular history. Initial Trop negative, cardiology is actively following the patient and will transition from Eliquis to Heparin tomorrow in anticipation of coronary catheterization on 07/05/16. 1. Chest pain with recent PE and underlying structural heart disease, present on admission, acute on chronic. Active -Patient currently anticoagulated with Eliquis, this will be switched to Heparin by cardiology -Patient actively followed by cardiology who will likely perform Cath on 07/05/16 -Continue home metoprolol Succ 100 mg PO BID -Continue home Atorvastatin 80 mg PO HS -Initial Trop negative, will continue to trend -CT angio negative -Continue home Aspirin 81 mg 2. DM1, present on admission, chronic. active -Continue home insulin regimen -Insulin Glargine 15U Qam, 20U QHS -Lispro medium dose correction scale -Last A1c 8.8 during previous hospitalization -Diabetic diet 3. HTN, present on admission, chronic. Active -Continue home Lisinopril 20 mg -Continue home Lasix 40 mg PO daily -Metoprolol as above -Continue to monitor BP 4. Anxiety and depression, present on admission, chronic. Active -Continue home Venlafaxine 150 mg Qam -Continue home Amytriptyline 50 mg Qhs -Continue home Lorazepam 1 mg PO q4 PRN 5. Chronic pain, present on admission. Active -Continue home Cyclobenziprine 10 mg PO TID PRN -Dilaudid 0.5 mg IV Q4 PRN -Acetaminophen 650 mg Q4 PRN 6. Hypothyroid, present on admission, chronic. Active -Continue home Levothyroxine 50 mcg PO daily Code Status: FULL CODE Disposition: Observation, though may be converted to inpatient if cardiac biomarkers trend upwards or patient manifests concerning symptoms. Pain Evaluation: Adequate Pain Control GI Prophylaxis: Proton Pump Inhibitor VTE Prophylaxis: Other (Transitioning from Eliquis) Resuscitation Status: CPR: Attempt Resuscitation Attending Statement The patient was seen and examined together with Dr. Burleson on 07/02 and I agree with the history, exam and plan as outlined in the note above. Fortunato Burleson DO July 02, 2016 22:48 Sean Jean Baptiste MD July 03, 2016 00:51
[2016-07-02] MEDS: HYDROmorphone 0.5 mg/0.5 mL iSecure Syringe IVPUSH PRN (23:39)
[2016-07-03] VITALS (7 sets, daily range): BP systolic 100–138; BP diastolic 60–79; PULSE 87–110; RESP 15–20; O2SAT 92–100
[2016-07-03] MEDS: MeTOProlol XL 50 mg ER24 Tablet PO SCH ×3 (01:04→21:28)
--- NOTE | 2016-07-03 01:42 | NUR ---
ADMIT Patient admit for chest pain. Recent discharge from the hospital. Re-oriented to room and call light. Pain relieved with dilaudid. Up independently in the room.
[2016-07-03] MEDS: HYDROmorphone 0.5 mg/0.5 mL iSecure Syringe IVPUSH PRN ×2 (04:28→08:53)
[2016-07-03 04:34] LABS: BASOPHILS % (AUTO) 0.4 % (0-3); EOSINOPHILS % (AUTO) 2.9 % (0-5); MONOCYTES % (AUTO) 9.6 % (4-12); Mean Corpuscular Hemoglobin 25.9 pg (27.0-35.0); Mean Corpuscular Volume 87.3 fL (81-100); NEUTROPHILS % (AUTO) 65.3 % (40-74); Platelet Count 213 bil/L (150-400)
[2016-07-03 04:47] LABS: INR 1.11 ratio
[2016-07-03 05:08] LABS: Magnesium 1.7 mg/dL (1.6-2.6); TROPONIN T 0.01 ug/L (0.0-0.011)
--- NOTE | 2016-07-03 05:32 | NUR ---
HYPOGLYCEMIC Patient BG 52 upon initial assessment. Given OJ and rechecked in 20 minutes with 62 BG. Ordered sandwich from kitchen and given more juice. Recheck 139. Patient has been sleeping comfortably most of the night.
[2016-07-03] MEDS: Insulin LISPRO 300 Unit/3 mL Inj SUBQ SCH ×4 (08:00→21:22)
[2016-07-03] MEDS ORDERED: Insulin GLARgine 100 Unit/mL Syringe SUBQ SCH (08:30)
--- NOTE | 2016-07-03 08:47 | DRSVH ---
PROCEDURE: CT ANGIO CHEST PULMONARY EMBOLISM ([id number]) INDICATIONS: chest pain, tachycardia prior PE TECHNIQUE: After the administration of intravenous contrast, 2 mm thick sections acquired from the pulmonary api karin to the posterior costophrenic angles. 3-dimensional maximum intensity projection (MIP) coronal a nd sagittal reformats were then acquired through the thorax. For radiation dose reduction, the follo wing was used: automated exposure control, adjustment of mA and/or kV according to patient size. COMPARISON: [facility], CT, CT ANGIO CHEST PE, 06/05/2016, 21:01. [facility] , CT, CT ANGIO CHEST PE, 06/25/2016, 6:35. FINDINGS: Image quality: Excellent. Pulmonary arteries: Small filling defects noted in several right upper lobe subsegmental pulmonary ar teries with pulmonary emboli. Lungs and pleura: Consolidation in the lung bases bilaterally which could represent compressive atele ctasis versus pneumonia. A moderate-sized bilateral pleural fluid collections are noted. No pneumotho rax. Central and peripheral airways are patent. Mediastinum: Heart size is mildly enlarged, without pericardial effusion. No mediastinal or hilar a denopathy. Thoracic aorta is normal in caliber and enhancement. Esophagus is normal in caliber, wit hout hiatal hernia. Bones and chest wall: Right chest wall cardiac pacer noted. No suspicious bony lesions. Ribs and tho racic spine appear intact throughout. Thyroid gland is within normal limits where visualized.. No a xillary or supraclavicular adenopathy. Abdomen: Gallbladder is surgically absent. Visualized upper abdominal solid organs appear normal in t he early arterial phase of enhancement. IMPRESSION: 1. Small right upper lobe subsegmental pulmonary emboli no essentially change compared to 06/25/2016. 2. Moderate bilateral pleural effusions. 3. Bibasilar lung consolidation compatible with atelectasis versus pneumonia. Please correlate with c linical and laboratory data. 4. Mild cardiomegaly. 5. Findings telephoned to Dr. Martínez on 07/02/16 at 0845 hours. Dictated by: Lauren Garcia MD, PhD on 07/03/2016 at 8:19 Approved by: Lauren Garcia MD, PhD on 07/03/2016 at 8:46
[2016-07-03] MEDS: Pantoprazole 40 mg ER24 Tablet PO SCH ×2 (08:58→17:09)
[2016-07-03] MEDS: Venlafaxine XR 75 mg ER24 Capsule PO SCH (08:59)
--- NOTE | 2016-07-03 10:52 | NUR ---
Social Work Note: Screen Note Data& Assessment: EMR reviewed. Roseline Frey is a 36 year old female admitted on 07/02/2016 for chest pain and tachycardia. Pt is a readmission. Pt has [employer] insurance coverage and sees Shira Aguilar DO for primary care. Pt lives in [place] with her father and is independent at baseline. Per MD in morning rounds, pt may got to label fuser tender today. SW to continue to follow for any discharge planning needs. No discharge needs identified at this time. Plan: Anticipated discharge home via POV when medically ready. SW to continue to follow for any discharge planning needs. No discharge needs identified at this time. DAYLIN Briones
--- NOTE | 2016-07-03 16:30 | PCM.PNMED ---
Subjective Date of Service July 03, 2016 Subjective Roseline Frey is a medically complex 36 year old woman who has been hospitalized for much of the last month for PE, DKA, and SVT related complications; she presents with chest pain and a strong cardiovascular history. Initial Trop negative, cardiology is actively following the patient and will transition from Eliquis to Heparin today in anticipation of coronary catheterization on 07/05/16. Today: The patient feels reasonably well and is complaining of mild chest pain and rash in her intertrigonal areas. The remainder of ROS is negative except as noted above. Exam Vital Signs Vital Sign - Last Date Time Temp Pulse Resp B/P Pulse Ox O2 Delivery O2 Flow Rate FiO2 07/03/16 11:53 36.7 87 16 100/68 99 Room Air Intake and Output 07/02/16 07/02/16 07/03/16 Cumulative From/Thru 15:00 23:00 07:00 07/02/16 19:47 - 07/03/16 05:32 Intake Total 500 ml 500 ml Output Total 1700 ml 1700 ml Balance -1200 ml -1200 ml Intake Oral 500 ml 500 ml Output Urine Total 1700 ml 1700 ml Exam Gen: a/o x3 pleasant cooperative woman in no acute distress Neck: Supple non tender, Full ROM, mild JVD HEENT: PERRL, EOMI, no scleral icterus, no conjunctival pallor, mucous membranes moist CV: RRR, no murmurs rubs or gallops, subq pacer Resp: Lungs CTA BL, no wheezing rales or rhonchi Abd: Soft, non tender, no organomegaly Extr: Mild BL LE edema, no cyanosis or clubbing Neuro: CN 2-12 grossly intact, no focal neurologic deficit Psych: Pleasant and appropriate mood and affect. IVs and Medications Medications Reviewed: Medications were reviewed in detail Lab and Diagnostics Result Diagram: 07/03/16 0430 07/03/16 0430 X-Rays, CTs and MRIs X-RAY CHEST ONE VIEW, PORTABLE IMPRESSION: Low lung volumes and scattered bibasilar atelectasis Dictated by: Олег Ventura M.D. on 07/02/2016 at 21:21 Approved by: Олег Ventura M.D. on 07/02/2016 at 21:22 CT pulmonary angiogram No PE identified, no aortic dissection Moderately large BL pleural effusion with adjacent lung base atelectasis Mild cardiomegaly with pacer present Status post cholecystectomy Per erikhawk read . Assessment & Plan Roseline Frey is a medically complex 36 year old woman who has been hospitalized for much of the last month for PE, DKA, and SVT related complications; she presents with chest pain and a strong cardiovascular history. Initial Trop negative, cardiology is actively following the patient and will transition from Eliquis to Heparin today in anticipation of coronary catheterization on 07/05/16. Hospital day #2 1. Chest pain with recent PE and underlying structural heart disease, present on admission, acute on chronic. Active -Patient currently anticoagulated with Eliquis, this will be switched to Heparin by cardiology -Patient actively followed by cardiology who will likely perform Cath on 07/05/16 , Dr. Crook consulted. -Continue home metoprolol Succ 100 mg PO BID -Continue home Atorvastatin 80 mg PO HS -Troponin negative -CT angio noting small PEs -Continue home Aspirin 81 mg 2. DM1, present on admission, chronic. active -Continue home insulin regimen -Insulin Glargine 15U Qam, 20U QHS -Lispro medium dose correction scale -Last A1c 8.8 during previous hospitalization -Diabetic diet 3. HTN, present on admission, chronic. Active -Continue home Lisinopril 20 mg -Continue home Lasix 40 mg PO daily -Metoprolol as above -Continue to monitor BP 4. Anxiety and depression, present on admission, chronic. Active -Continue home Venlafaxine 150 mg Qam -Continue home Amytriptyline 50 mg Qhs -Continue home Lorazepam 1 mg PO q4 PRN 5. Chronic pain, present on admission. Active -Continue home Cyclobenziprine 10 mg PO TID PRN -Dilaudid 0.5 mg IV Q4 PRN -Acetaminophen 650 mg Q4 PRN 6. Hypothyroid, present on admission, chronic. Active -Continue home Levothyroxine 50 mcg PO daily Code Status: FULL CODE Disposition: Anticipate patient will be inpatient until 07/05. GI Prophylaxis: Proton Pump Inhibitor VTE Prophylaxis: Other (Transitioning from Eliquis) VTE Mechanical Devices: Intermittant Pneumatic CD Resuscitation Status: CPR: Attempt Resuscitation Attending Statement Patient seen and examined with house staff. Agree with all attached documentation. Eliana Turner DO July 03, 2016 15:35 Gonzalez Arreaga MD July 04, 2016 14:23
--- NOTE | 2016-07-03 18:47 | NUR ---
Skin integrity Made aware by mine shifter RN pt has rashes needing attention by wound care. During assessment noted red rash to right armpit, bilateral breast, panus folds and groin area. Wound care in to see pt, suggested Nystatin cream. MD made aware, nystatin cream applied per MD's order.
[2016-07-03] MEDS: Insulin GLARgine 100 Unit/mL Syringe SUBQ SCH (21:22)
[2016-07-03] MEDS ORDERED: Heparin 5,000 Unit/mL Inj IVPUSH PRN (23:15)
[2016-07-04] VITALS (8 sets, daily range): BP systolic 103–122; BP diastolic 69–84; PULSE 84–89; RESP 16–20; O2SAT 95–99
[2016-07-04] MEDS: Heparin 25K Unit/500mL 0.45 NS 25,000 UNIT in IV Premix 1 EACH IV SCH ×2 (00:05→16:31)
--- NOTE | 2016-07-04 00:26 | NUR ---
heparin gtt started heparin gtt at 18units/kg/hr per DVT protocol, starting PTT was 24.6 MD not wanting bolus heparin dose given.
[2016-07-04] MEDS: Ondansetron 2 mg/mL 2 mL Inj IVPUSH PRN ×3 (01:13→09:34)
--- NOTE | 2016-07-04 05:44 | NUR ---
nausea/pain pt c/o pain in left chest to shoulder to arm, IV morphine 1mg given q4 hours, pt also c/o nausea zofran given x2 pt still able to eat thinks the nausea came on r/t dinner or maybe a new pain in her abd. tele Vpaced
[2016-07-04] MEDS: Pantoprazole 40 mg ER24 Tablet PO SCH ×2 (09:24→17:21)
[2016-07-04] MEDS: Venlafaxine XR 75 mg ER24 Capsule PO SCH (09:24)
[2016-07-04] MEDS: MeTOProlol XL 50 mg ER24 Tablet PO SCH ×2 (09:24→21:28)
[2016-07-04] MEDS: Insulin LISPRO 300 Unit/3 mL Inj SUBQ SCH ×4 (09:25→21:40)
--- NOTE | 2016-07-04 11:58 | PCM.PNMED ---
Subjective Date of Service July 04, 2016 Subjective Roseline Frey is a medically complex 36 year old woman who has been hospitalized for much of the last month for PE, DKA, and SVT related complications; she presents with chest pain and a strong cardiovascular history. Initial Trop negative, cardiology is actively following the patient and will transition from Eliquis to Heparin today in anticipation of coronary catheterization on 07/05/16. Hospital day #3 Overnight: No acute events. Today: The patient states her skin rash has improved. She states she is a bit nauseous and is having some mild abdominal pain. She denies any chest pain or shortness of breath. The remainder of ROS is negative except as noted above. Exam Vital Signs Vital Sign - Last Date Time Temp Pulse Resp B/P Pulse Ox O2 Delivery O2 Flow Rate FiO2 07/04/16 11:35 36.9 86 16 107/77 97 Room Air Intake and Output 07/03/16 07/03/16 07/04/16 Cumulative From/Thru 15:00 23:00 07:00 07/02/16 19:47 - 07/04/16 05:50 Intake Total 1000 ml 1360 ml 2860 ml Output Total 2450 ml 1150 ml 5300 ml Balance -1450 ml 210 ml -2440 ml Intake Oral 1000 ml 1156 ml 2656 ml IV Total 204 ml 204 ml Output Urine Total 2450 ml 1150 ml 5300 ml # Bowel Movements 0 0 Exam Gen: a/o x3 pleasant cooperative woman in no acute distress Neck: Supple non tender, Full ROM, mild JVD HEENT: PERRL, EOMI, no scleral icterus, no conjunctival pallor, mucous membranes moist CV: RRR, no murmurs rubs or gallops, subq pacer Resp: Lungs CTA BL, no wheezing rales or rhonchi Abd: Soft, non tender, no organomegaly Extr: Mild BL LE edema, no cyanosis or clubbing Neuro: CN 2-12 grossly intact, no focal neurologic deficit Psych: Pleasant and appropriate mood and affect. IVs and Medications Medications Reviewed: Medications were reviewed in detail Lab and Diagnostics Result Diagram: 07/03/16 04307/03/16 043 X-Rays, CTs and MRIs X-RAY CHEST ONE VIEW, PORTABLE IMPRESSION: Low lung volumes and scattered bibasilar atelectasis Dictated by: Олег Ventura M.D. on 07/02/2016 at 21:21 Approved by: Олег Ventura M.D. on 07/02/2016 at 21:22 CT pulmonary angiogram No PE identified, no aortic dissection Moderately large BL pleural effusion with adjacent lung base atelectasis Mild cardiomegaly with pacer present Status post cholecystectomy Per zulma read . Assessment & Plan Roseline Frey is a medically complex 36 year old woman who has been hospitalized for much of the last month for PE, DKA, and SVT related complications; she presents with chest pain and a strong cardiovascular history. Initial Trop negative, cardiology is actively following the patient and will transition from Eliquis to Heparin today in anticipation of coronary catheterization on 07/05/16. Hospital day #3 1. Chest pain with recent PE and underlying structural heart disease, present on admission, acute on chronic. Active -Patient currently anticoagulated with Eliquis, switched to Heparin -Patient actively followed by cardiology who will perform Cath on 07/05/16, Dr. Crook consulted. -Continue home metoprolol Succ 100 mg PO BID -Continue home Atorvastatin 80 mg PO HS -Troponin negative -CT angio noting small PEs -Continue home Aspirin 81 mg 2. DM1, present on admission, chronic. active -Continue home insulin regimen -Insulin Glargine 15U Qam, 20U QHS -Lispro medium dose correction scale -Last A1c 8.8 during previous hospitalization -Diabetic diet 3. HTN, present on admission, chronic. Active -Continue home Lisinopril 20 mg -Continue home Lasix 40 mg PO daily -Metoprolol as above -Continue to monitor BP 4. Anxiety and depression, present on admission, chronic. Active -Continue home Venlafaxine 150 mg Qam -Continue home Amytriptyline 50 mg Qhs -Continue home Lorazepam 1 mg PO q4 PRN 5. Chronic pain, present on admission. Active -Continue home Cyclobenziprine 10 mg PO TID PRN -Dilaudid 0.5 mg IV Q4 PRN -Acetaminophen 650 mg Q4 PRN 6. Hypothyroid, present on admission, chronic. Active -Continue home Levothyroxine 50 mcg PO daily Code Status: FULL CODE Disposition: Anticipate patient will be inpatient until 07/05. GI Prophylaxis: Proton Pump Inhibitor VTE Prophylaxis: Other (Transitioning from Eliquis) VTE Mechanical Devices: Intermittant Pneumatic CD Resuscitation Status: CPR: Attempt Resuscitation Attending Statement Patient seen and examined with house staff. Agree with all attached documentation. Eliana Turner DO July 04, 2016 11:55 Gonzalez Arreaga MD July 04, 2016 14:34
--- NOTE | 2016-07-04 14:32 | PROG NOTE ---
[address] [address] PROGRESS NOTE PATIENT: KAYLEE TURNER : 1980 MR#: [id number] ADMIT: 07/02/2016 JOB ID: [id number] DATE: 07/04/2016 SUBJECTIVE: The patient continued to experience chest discomfort in the upper left chest area. She described as sharp in nature with a throbbing component. She rated it about 6/10. It radiated to her left shoulder. It is constant pain all the time. This morning, she felt sick in her stomach and pain in the lower abdomen. PHYSICAL EXAMINATION: Reveals a pleasant, obese lady appearing comfortable. Temperature is 36.9. Blood pressure is 107/77. Pulse 86. Body weight is 99.7 kg. Head and face have normal configuration. Anicteric sclerae. Moist mucosa. Neck supple. No jugular venous distention or carotid bruits. Chest: Normal expansion. Lungs are clear to auscultation. Heart: Distant heart sounds. No murmur. Abdomen: Soft, nontender. Bowel sounds present. Extremities: No clubbing, cyanosis or edema. Neurology: Awake and oriented x3. EKG shows sinus rhythm, ventricular paced. BLOOD TESTS: Showed troponin less than 0.01. IMPRESSION: 1. Atypical chest discomfort. 2. Dual-chamber pacemaker in place. 3. History of atrioventricular lin reciprocal tachycardia, status post ablation. 4. Left ventricular ejection fraction 25%-30%. 5. Type 1 diabetes mellitus for 28 years. 6. History of MSSA perinephric abscess. 7. History of Graves disease, status post thyroidectomy. 8. Anxiety. PLAN: I agree with Dr. Hernandez that the patient should undergo coronary angiogram in view of her low ejection fraction and longstanding diabetes. Furosemide and lisinopril will be on hold. She will receive half dose of Lantus insulin tomorrow. The risks and benefits of procedure have been explained to the patient. She understands and agreed to proceed with the procedure. LYNN
--- NOTE | 2016-07-04 15:41 | NUR ---
nausea/pain Pt c/o nausea this AM, 8mg Zofran administered. Pt stating little relief with reassessment, "it might be just a tummy ache". MD made aware. Pt stating 1mg morphine not relieving her chest pain. Now dosing pt with 2mg morphine. Ongoing care.
[2016-07-04] MEDS: Sodium Chloride LOK Flush 10 mL Syringe IVFLUSH SCH ×2 (16:30→23:20)
--- NOTE | 2016-07-04 18:08 | NUR ---
Assumed care Assumed care of Pt at ~1600 today from Tamika Souza RN. Pt reported pain to be better controlled with 2mg dose of morphine, Pt appeared comfortable. Pt on heparin DVT protocol at 18units/Kg/Hr, PTT just drawn by lab.
[2016-07-04] MEDS: Insulin GLARgine 100 Unit/mL Syringe SUBQ SCH (21:36)
[2016-07-04 23:13] LABS: Magnesium 1.6 mg/dL (1.6-2.6)
[2016-07-05] VITALS (17 sets, daily range): BP systolic 90–138; BP diastolic 59–83; PULSE 73–88; RESP 11–22; O2SAT 93–100
[2016-07-05 04:05] LABS: BASOPHILS % (AUTO) 1.4 % (0-3); EOSINOPHILS % (AUTO) 2.7 % (0-5); MONOCYTES % (AUTO) 7.6 % (4-12); NEUTROPHILS % (AUTO) 57.8 % (40-74); Platelet Count 214 bil/L (150-400)
--- NOTE | 2016-07-05 05:03 | NUR ---
Pain/Tele Pt c/o pain in left chest to left shoulder at 7/10, relief w/ 2mg IV morphine which was given x2. Per emergency service worker Wendy and day shift report this is intervention of choice. PRN Ativan also given last night and pt appeared to sleep all the way until am labs drawn. EKG done at start of shift and battery charger conveyor line Wendy reviewed seeing no significant changes from previous other than longer QTc. MD made aware as pt has PRN Zofran ordered, also made aware of borderline Mag level. Tele VPaced 80s. Pt has returned to sleep post second dose of morphine w/ no further complaints. Heparin gtt continues. Vitals stable. Pt NPO after midnight, pt verbalized understanding of this. Ongoing care.
[2016-07-05] MEDS: Heparin 25K Unit/500mL 0.45 NS 25,000 UNIT in IV Premix 1 EACH IV SCH (05:28)
[2016-07-05] MEDS ORDERED: 0.9% Sodium Chloride 1,000 ML IV ONE (06:00)
[2016-07-05] MEDS ORDERED: Heparin 1,000 Units/500 mL NS Premix IV ONE ×2 (07:24)
[2016-07-05] MEDS ORDERED: Heparin 5,000 Units/500 mL NS Premix IV ONE ×2 (07:24)
[2016-07-05] MEDS ORDERED: 0.9% Sodium Chloride 50 ML ONE (07:27)
[2016-07-05] MEDS: Insulin LISPRO 300 Unit/3 mL Inj SUBQ SCH ×4 (08:06→22:43)
[2016-07-05] MEDS: Pantoprazole 40 mg ER24 Tablet PO SCH ×2 (08:06→18:00)
[2016-07-05] MEDS: Venlafaxine XR 75 mg ER24 Capsule PO SCH (08:06)
[2016-07-05] MEDS: MeTOProlol XL 50 mg ER24 Tablet PO SCH ×2 (08:06→20:22)
[2016-07-05] MEDS: Sodium Chloride LOK Flush 10 mL Syringe IVFLUSH SCH ×2 (08:07→16:24)
[2016-07-05] MEDS: Insulin GLARgine 100 Unit/mL Syringe SUBQ SCH ×3 (08:15→22:43)
[2016-07-05] MEDS ORDERED: fentaNYL-PF 50 mCg/mL 2 mL Inj ONE (08:49)
[2016-07-05] MEDS ORDERED: Ondansetron 2 mg/mL 2 mL Inj IVPUSH PRN (10:35)
--- NOTE | 2016-07-05 11:28 | CS94 ---
[address] [address] DIAGNOSTIC CARDIAC CATHETERIZATION PATIENT: KAYLEE TURNER : 1980 MR#: [id number] ADMIT: 07/02/2016 JOB ID: [id number] SERVICE DATE: 07/05/2016 CHIEF COMPLAINT: Cardiomyopathy. PATIENT PRESENTATION: The patient is a very unfortunate 36-year-old woman with a history of what clinically appears to be broken heart syndrome. She has multiple coronary artery disease risk factors including diabetes and excess weight. Complicating cardiovascular issues include history of SVT status post ablation complicated by complete heart block and dual-chamber permanent pacemaker as well as a small pulmonary embolism. PROCEDURES PERFORMED: 1. Left heart catheterization-selective coronary angiograms. 2. Right common femoral artery vascular access under ultrasound guidance. 3. Hemodynamic measurement, left ventricular end-diastolic pressure. 4. Closure via StarClose closure device. METHOD: Following informed consent, the patient was prepped and draped in the usual sterile fashion. A 6-Tristanian sheath was placed in right common femoral artery. Sheath placement was confirmed via femoral angiogram. JL4, JR4 catheters were used to engage left main and right coronary artery ostium respectively. Hand injection and craniocaudal angulation was used to obtain selective coronary angiograms. All exchanges were performed over a wire. Pigtail was advanced in the left ventricle. Left ventricular end-diastolic pressure was recorded. It was high. Therefore, ventriculogram was deferred by intention to avoid life-threatening arrhythmias. At this point in time, hemostasis was obtained via StarClose closure device. No complications immediately postprocedure. FINDINGS: Femoral vascular access right common femoral artery gives rise to SFA and profunda. No vascular disease. The sheath enters the femoral head at the 50th percentile ean. There is no evidence of contrast extravasation or dissection. Coronary angiograms: Left main is a long vessel. No dampening on engagement. Excellent blow back. No obstructive disease is seen. Left main gives rise to the LAD, circumflex and a tiny ramus intermedius. Left anterior descending is a wrap-around vessel. It gives rise to one large diagonal branch, one very tiny second diagonal branch, a small third diagonal branch, a small fourth diagonal branch and multiple septal perforators. There is a 40%-50% mid LAD lesion. It is best appreciated on FLETCHER cranial view. It is localized at the takeoff of the very, very tiny second diagonal branch. The more distal portion of the LAD is a small caliber vessel that appears to be diffusely diseased and is not amenable to revascularization. Additionally there is eccentric 30% long lesion extending from the fdc point between that tiny second diagonal branch and a small third diagonal branch. This stenosis is best appreciated in NICCI cranial view, but does not appear to be hemodynamically significant. Circumflex is a nondominant vessel. It gives rise to medium size first obtuse marginal branch, a small second obtuse marginal branch and then an extremely tiny third obtuse marginal branch. The distal portion of the vessel appears to be diffusely diseased but not amenable to percutaneous coronary intervention. Right coronary artery is a dominant vessel. It gives rise to medium size OM and to medium sized posterior lateral branches. There is a 30%-40% stenosis in the jacobs's crook area of the right coronary artery but again does not appear to be hemodynamically significant. There is otherwise no hemodynamically significant obstructive disease. There is 30%-40% ostial stenosis at the takeoff of the PDA but again nothing hemodynamically significant. IMPRESSION: 1. Moderate coronary artery disease but not hemodynamically significant and does not appear to be accounting for her cardiomyopathy. 2. Very high filling pressure of 35-40 mmHg. PLAN: Recommend aggressive diuresis and inotropic support in particular with digoxin as the patient can tolerate it. We ideally would like to bring her filling pressure down to about 12-20 mmHg if possible. Thank you very much for the opportunity to evaluate her.
--- NOTE | 2016-07-05 11:30 | NUR ---
Transfer back to [facility] Pt returned from [facility], post cathlab. Report received from Rai ELIZABETH. Heart cath performed with no interventions, right groin site approach with star close. Groin site upon return is pink, soft, tender. Pt c/o 09/09 pain to chest and groin site. 2mg of Morphine IV push administered with relief to 06/10. Pt off bedrest at 1140.
--- NOTE | 2016-07-05 11:42 | NUR ---
[place]: Arrived to [facility] 9 at 0940 from label designer. R groin star close dressing C/D/I, no hematoma noted, R pedal pulse palpable +2. VSS, tele SR pt with c/o 7/10 in chest and R leg/groin when awakened, but quick drifts back to sleep after a couple of minutes. Report called to Margot RN on [facility] to re-assume care of pt. Taken to [facility] room 2023 at 1135 in bed.
[2016-07-05] MEDS: Furosemide 10 mg/mL 4 mL Inj IVPUSH SCH (12:16)
--- NOTE | 2016-07-05 17:29 | PCM.PNMED ---
Subjective Date of Service July 05, 2016 Subjective Roseline Frey is a medically complex 36 year old woman who has been hospitalized for much of the last month for PE, DKA, and SVT related complications; she presents with chest pain and a strong cardiovascular history. Now undergoing diuresis for HFrEF. Hospital day #4 Overnight: No acute events. Today: She underwent her cardiac cath today which showed no hemodynamically significant CAD. She feels some pain in her groin but has not noticed any bleeding. She denies any chest pain. The remainder of ROS is negative except as noted above. Exam Vital Signs Vital Sign - Last Date Time Temp Pulse Resp B/P Pulse Ox O2 Delivery O2 Flow Rate FiO2 07/05/16 12:16 77 07/05/16 11:56 37.0 18 98/65 98 Room Air Intake and Output 07/04/16 07/04/16 07/05/16 Cumulative From/Thru 15:00 23:00 07:00 07/02/16 19:47 - 07/05/16 06:48 Intake Total 1874 ml 1170 ml 5904 ml Output Total 1750 ml 1750 ml 8800 ml Balance 124 ml -580 ml -2896 ml Intake Oral 1520 ml 750 ml 4926 ml IV Total 354 ml 420 ml 978 ml Output Urine Total 1750 ml 1750 ml 8800 ml # Bowel Movements 0 0 0 Exam Gen: a/o x3 pleasant cooperative woman in no acute distress Neck: Supple non tender, Full ROM, mild JVD HEENT: PERRL, EOMI, no scleral icterus, no conjunctival pallor, mucous membranes moist CV: RRR, no murmurs rubs or gallops, subq pacer Resp: Lungs CTA BL, no wheezing rales or rhonchi Abd: Soft, non tender, no organomegaly Extr: Mild BL LE edema, no cyanosis or clubbing Neuro: CN 2-12 grossly intact, no focal neurologic deficit Psych: Pleasant and appropriate mood and affect. IVs and Medications Medications Reviewed: Medications were reviewed in detail Lab and Diagnostics Result Diagram: 07/05/16 0400 07/05/16 0400 X-Rays, CTs and MRIs X-RAY CHEST ONE VIEW, PORTABLE IMPRESSION: Low lung volumes and scattered bibasilar atelectasis Dictated by: Олег Ventura M.D. on 07/02/2016 at 21:21 CT pulmonary angiogram IMPRESSION: 1. Small right upper lobe subsegmental pulmonary emboli no essentially change compared to 06/25/2016. 2. Moderate bilateral pleural effusions. 3. Bibasilar lung consolidation compatible with atelectasis versus pneumonia. Please correlate with clinical and laboratory data. 4. Mild cardiomegaly. 5. Findings telephoned to Dr. Martínez on 07/02/16 at 0845 hours. Dictated by: Lauren Garcia MD, PhD on 07/03/2016 at 8:19 Additional Diagnostics Left sided cardiac catheterization: IMPRESSION: 1. Moderate coronary artery disease but not hemodynamically significant and does not appear to be accounting for her cardiomyopathy. 2. Very high filling pressure of 35-40 mmHg. Assessment & Plan Roseline Frey is a medically complex 36 year old woman who has been hospitalized for much of the last month for PE, DKA, and SVT related complications; she presents with chest pain and a strong cardiovascular history. Now undergoing diuresis for HFrEF. Hospital day #4 1. Stress cardiomyopathy -Cath did not show any hemodynamically significant lesions -Continue home metoprolol Succ 100 mg PO BID -Continue home Atorvastatin 80 mg PO HS -Troponin negative -CT angio noting small PEs -Continue home Aspirin 81 mg -Diuresis with IV Lasix and Digoxin per Dr. Hernandez. 2. DM1, present on admission, chronic. active -Continue home insulin regimen -Insulin Glargine 15U Qam, 20U QHS -Lispro medium dose correction scale -Last A1c 8.8 during previous hospitalization -Diabetic diet 3. HTN, present on admission, chronic. Active -Continue home Lisinopril 20 mg -Continue home Lasix 40 mg PO daily -Metoprolol as above -Continue to monitor BP 4. Anxiety and depression, present on admission, chronic. Active -Continue home Venlafaxine 150 mg Qam -Continue home Amytriptyline 50 mg Qhs -Continue home Lorazepam 1 mg PO q4 PRN 5. Chronic pain, present on admission. Active -Continue home Cyclobenziprine 10 mg PO TID PRN -Dilaudid 0.5 mg IV Q4 PRN -Acetaminophen 650 mg Q4 PRN 6. Hypothyroid, present on admission, chronic. Active -Continue home Levothyroxine 50 mcg PO daily Code Status: FULL CODE Disposition: D/C home tomorrow GI Prophylaxis: Proton Pump Inhibitor VTE Prophylaxis: Other (Transitioning from Eliquis) VTE Mechanical Devices: Intermittant Pneumatic CD Resuscitation Status: CPR: Attempt Resuscitation Attending Statement Patient seen and examined with house staff, agree with all atached documentation. Eliana Turner DO July 05, 2016 12:52 Gonzalez Arreaga MD July 10, 2016 11:08
[2016-07-05] MEDS ORDERED: Furosemide 10 mg/mL 4 mL Inj IVPUSH ONE (18:30)
[2016-07-06] MEDS: Sodium Chloride LOK Flush 10 mL Syringe IVFLUSH SCH ×2 (00:56→08:38)
[2016-07-06 03:08] VITALS: BP 109/73; PULSE 81; RESP 18; O2SAT 92
--- NOTE | 2016-07-06 03:08 | PROG NOTE ---
[address] [address] PROGRESS NOTE PATIENT: KAYLEE TURNER : 1980 MR#: [id number] ADMIT: 07/02/2016 JOB ID: [id number] DATE: 07/05/2016 SUBJECTIVE: The patient had no acute events. She denies any bleeding. She denies any chest pain. She says she is feeling better. OBJECTIVE: Vital signs: Temperature 36.5, blood pressure 90/63 up to 138/74, pulse 73 up to 88 beats per minute, saturating 93-100% on room air. A very pleasant woman in no apparent distress. Eyes: No scleral icterus. Neck is supple. No carotid bruits. Heart: Normal S1, S2. No murmurs. Lungs: Clear to auscultation anteriorly. Abdomen is soft, positive bowel sounds. No hepatosplenomegaly. Extremities: Warm, well perfused, mild bilateral edema. CURRENT MEDICATIONS: 1. Toprol XL 100 mg twice a day. 2. Lipitor 80 mg daily. 3. Lantus 20 mg q.h.s. 4. Elavil. 5. Protonix. 6. Lasix 40 mg IV daily. 7. Dig 250 mcg daily. 8. Effexor. 9. Levothyroxine 50 mcg daily. 10. Aspirin 81 mg daily. 11. Lantus 15 units in the morning. 12. Lisinopril 20 mg daily. ASSESSMENT AND PLAN: A 36-year-old woman with newly diagnosed nonischemic cardiomyopathy, recently diagnosed pulmonary embolism, history of infection and dual-chamber permanent pacemaker, recently repositioned from the left infraclavicular fossa to the right infraclavicular fossa. PLAN: Congestive heart failure. Continue Toprol XL 100 mg twice a day. Continue lisinopril 20 mg twice a day. Digoxin and the Lasix. Tomorrow we will switch her from 40 mg IV Lasix to 80 mg p.o. Lasix. If blood pressure allows, tomorrow will add spironolactone. In terms of PE, Eliquis was on hold today because that has upcoming cardiac catheterization. As a result medication is held. I think it is reasonable to start her Eliquis tomorrow. She takes 5 mg twice a day. Hypothyroidism. Tomorrow I will verify her thyroid medication dose. It says that according to medication reconciliation she is supposed to be 250 mcg of levothyroxine, but so far in the course of her hospitalization, she was only getting 50 mcg daily. I will double check with the patient the dose she is actually supposed to be on. Stress cardiomyopathy: I expect that she will make a full recovery and we will monitor her telemetry closely. If she has not had any events great. If she had some runs of nonsustained VT, we will consider temporary Life Vest. Filling pressure: The patient had very high filling pressure during her cardiac catheterization, that is why I though it was appropriate to attempt to diurese her. Of course, it is not practical for us to do a right heart cath and trend her filling pressures. We can only hope that adjusting her medication will help her feel better. She would benefit from close outpatient follow up with Dr. Del Valle and/or myself. Thank you very much for the opportunity to evaluate this delightful lady. LYNN
[2016-07-06 05:22] VITALS: PULSE 85
--- NOTE | 2016-07-06 06:08 | NUR ---
Groin Site/Pain Patient's right groin site soft, minimally tender to palpation, with notable bruising surrounding the area. Patient reports groin and "upper chest" pain 5-6/10; tylenol and morphine 1 mg given and patient noted to be asleep for the following four hours. Patient woke when vital signs were done and again asked for pain medication, additional 1 mg morphine given. Patient again sleeping. At 0500 patient put production engineer light and asked SUPERVISOR CEREAL to have nurse bring her pain medication; patient was asleep when nurse arrived to the room. Continue to monitor.
[2016-07-06 08:24] VITALS: BP 101/63; PULSE 77; RESP 16; O2SAT 95
[2016-07-06] MEDS ORDERED: Insulin GLARgine 100 Unit/mL Syringe SUBQ SCH (08:30)
[2016-07-06] MEDS: Venlafaxine XR 75 mg ER24 Capsule PO SCH (08:32)
[2016-07-06] MEDS: Pantoprazole 40 mg ER24 Tablet PO SCH (08:32)
[2016-07-06] MEDS: MeTOProlol XL 50 mg ER24 Tablet PO SCH (08:33)
[2016-07-06] MEDS: Furosemide 10 mg/mL 4 mL Inj IVPUSH SCH (08:35)
[2016-07-06] MEDS: Insulin LISPRO 300 Unit/3 mL Inj SUBQ SCH ×2 (08:36→12:14)
[2016-07-06 10:11] VITALS: PULSE 77
[2016-07-06] MEDS ORDERED: HYDROcodone-APAP 5-325 mg Tablet PO PRN (11:00)
[2016-07-06 12:54] VITALS: BP 103/71; PULSE 79; RESP 20; O2SAT 94
[2016-07-06] MEDS ORDERED: FURO80TA83 PO (14:15)
[2016-07-06] MEDS ORDERED: DIGO250T72 PO (14:15)
[2016-07-06] MEDS ORDERED: SPIR25TA3 PO (14:15)
--- NOTE | 2016-07-06 14:19 | PCM.DICHF ---
Eliana Turner DO 07/06/16 1419: CHF Discharge Instructions Date of Service: July 06, 2016 Dates of Hospitalization Date of Hospital Admission July 02, 2016 at 22:03 Date of Discharge: July 06, 2016 Providers Admitting Physician: Sean Jean Baptiste MD Primary Care Physician: Arielle Aguilar DO Attending Physician: Sean Jean Baptiste MD Diagnosis at Time of Discharge Diagnosis at time of discharge 1. Stress cardiomyopathy 2. DM1, present on admission, chronic. active 3. HTN, present on admission, chronic. Active 4. Anxiety and depression, present on admission, chronic. Active 5. Chronic pain, present on admission. Active 6. Hypothyroid, present on admission, chronic. Active Problems: Labs Ejection Fraction 40% Laboratory Tests Test Range/Units 07/02/16 20:03 07/03/16 04:30 07/03/16 08:32 07/04/16 22:16 Pro-B-Type Natriuretic Peptide 0-130 pg/mL 3552 Phosphorus Level 2.5-4.9 mg/dL 5.0 Total Bilirubin 0.0-1.2 mg/dL 0.5 Aspartate Amino Transf (AST/SGOT) 0-50 U/L 20 Alanine Aminotransferase (ALT/SGPT) 0-32 U/L 10 Alkaline Phosphatase 25-150 U/L 125 Total Protein 6.4-8.4 g/dL 6.6 Albumin 3.4-5.0 g/dL 2.8 Troponin T 0.0-0.011 ug/L 0.010 Magnesium Level 1.6-2.6 mg/dL 1.6 Test Range/Units 07/05/16 04:00 07/06/16 03:54 Hemoglobin A1c 4.8-5.6 % 8.6 Triglycerides Level 0-149 mg/dL 195 Cholesterol Level 100-199 mg/dL 137 LDL Cholesterol, Calculated 0-99 mg/dL 71.000 VLDL Cholesterol mg/dL 39.000 HDL Cholesterol >39 mg/dL 27 Cholesterol/HDL Ratio 0.0-4.4 5.07 Sodium Level 134-144 mEq/L 140 Potassium Level 3.5-5.2 mEq/L 3.9 Chloride Level 97-108 mEq/L 101 Carbon Dioxide Level 18-29 mmol/L 27 Blood Urea Nitrogen 6-20 mg/dL 9 Creatinine 0.57-1.00 mg/dL 0.67 Estimat Glomerular Filtration Rate >59 mL/min 141 Glucose Level 60-99 mg/dL 150 Calcium Level 8.5-10.1 mg/dL 8.5 Discharge Medications Other Medication Instructions You have received instructions on the medications your physician has prescribed at discharge. A list of these medications has been provided to you. Keep this and a list of all current medications with you. Keep the dates when you received the Flu and Pneumococcal (Pneumonia) Vaccines. Last known date of receiving Flu Vaccine 03/19 Last known date of receiving Pneumococcal (Pneumonia) Vaccine DISPLAY COORDINATOR Diet Diet Instructions CHF Low Salt diet ( 2 grams or less sodium/day) Choose foods and drinks with low or no salt. Remove salt shaker from the table. Read Nutritional Facts labels. Weight Monitoring 1. Weigh yourself every day at the same time and write it down. 2. Take your weight log to your doctor visits. 3. Call your doctor if you gain 3-5 pounds over 2-3 days. 4. Your weight today is 218.70 lbs. Additional Instructions Smoking--Tobacco Use If you smoke, you are strongly encouraged to stop. If you have recently quit smoking, CONGRATULATIONS. For further information to stop smoking or to remain smoke-free, Follow Up Plan Follow Up Plan Continue Toprol XL 100 mg twice a day. Continue lisinopril 20 mg twice a day. Start Digoxin. Increase Lasix 40 to 80 mg PO daily. Start 12.4 mg of spironolactone. Restart Eliquis Please follow up with Dr. Hernandez or Dr. Del Valle at his or her next available appointment. Please follow-up with your primary care provider in about 1 week. Report or call your Doctor REPORT TO YOUR DOCTOR OR SEEK MEDICAL ATTENTION: *Shortness of breath or have more difficulty breathing. *Swelling of your feet, ankles, hands or abdomen. *Feeling tired with normal activity or experiencing dizziness or fainting. *Trouble sleeping or waking up feeling short of breath or coughing. *Chest pain or pressure. *Weight gain of 3-5 pounds over 2-3 days. *Inability to take medications or follow treatment plan Heart Attach warning signs HEART ATTACK WARNING SIGNS * Chest discomfort. *Discomfort or pain in one or both arms, back, neck, jaw or stomach. *Shortness of breath. *Breaking out in a cold sweat, nausea, or lightheadedness. If you're having heart attack warning signs: CALL 9--1. DON'T WAIT MORE THAN A FEW MINUTES - 5 MINUTES AT MOST - TO CALL 9 - - 1. Jimenez Montes MD 07/06/166: CHF Discharge Instructions Attending Statement The above discharge plan was reviewed with the resident and agree with above. Eliana Turner DO July 06, 2016 14:19 Jimenez Montes MD July 06, 2016 19:16
--- NOTE | 2016-07-06 15:40 | NUR ---
Discharge Pt. discharged to home and took all her belongings from room [address]23 [facility]. Pt. was given educational material on furosemide, spironolactone and digoxin. Educational material on cath procedure was also given as well as Pts. reason for stay for chest pain and tachycardia. Pt. was also instructed to to call Cardiology to make an appointment and phone numbers where provided as well as providers names. Pt. was also instructed to call Dr. Aguilar for an appointment and phone number was also provided. Pt. IV DC'D x2 intact and asymptomatic, Pt. left room 2023 [facility] staying she was going to go visit her father who is all on [facility] floor.
--- NOTE | 2016-07-06 15:42 | NUR ---
Social Work Note: Discharge Data& Assessment: EMR reviewed. Per pt is medically ready for discharge. SW met with pt at bedside to confirm discharge plan and assess for any unmet needs. Roseline Frey is a 36 year old female admitted on 07/02/2016 for chest pain and tachycardia. Pt had heart cath completed yesterday. Per pt is medically improved and ready to discharge home via POV. Pt confirmed discharge plan and states her neighbor will be transporting her home this afternoon. P independent at baseline and independent in her room. Pt denies any other needs. No other discharge needs identified. Plan: Per pt is medically improved and ready to discharge home via POV. Pt denies any other needs. No other discharge needs identified. DAYLIN Briones
--- NOTE | 2016-07-06 18:09 | PCM.DC.MED ---
Discharge Summary Date of Service July 06, 2016 Dates of Hospitalization Date of Hospital Admission July 02, 2016 at 22:03 Date of Discharge: July 06, 2016 Providers: Admitting Physician: Sean Jean Baptiste MD Primary Care Physician: Arielle Aguilar DO Attending Physician: Sean Jean Baptiste MD Diagnosis at Time of Discharge Diagnosis at Time of Discharge 1. Stress cardiomyopathy 2. DM1, present on admission, chronic. active 3. HTN, present on admission, chronic. Active 4. Anxiety and depression, present on admission, chronic. Active 5. Chronic pain, present on admission. Active 6. Hypothyroid, present on admission, chronic. Active Consultations Cardiology Procedures XRay, CTs & MRIs X-RAY CHEST ONE VIEW, PORTABLE IMPRESSION: Low lung volumes and scattered bibasilar atelectasis Dictated by: Олег Ventura M.D. on 07/02/2016 at 21:21 CT pulmonary angiogram IMPRESSION: 1. Small right upper lobe subsegmental pulmonary emboli no essentially change compared to 06/25/2016. 2. Moderate bilateral pleural effusions. 3. Bibasilar lung consolidation compatible with atelectasis versus pneumonia. Please correlate with clinical and laboratory data. 4. Mild cardiomegaly. 5. Findings telephoned to Dr. Martínez on 07/02/16 at 0845 hours. Dictated by: Lauren Garcia MD, PhD on 07/03/2016 at 8:19 Other Diagnostics Left sided cardiac catheterization: IMPRESSION: 1. Moderate coronary artery disease but not hemodynamically significant and does not appear to be accounting for her cardiomyopathy. 2. Very high filling pressure of 35-40 mmHg. Brief History Per Dr. Burleson's history and physical: "Roseline Frey is a 36 year old woman with a PMH of DM1 for 30 years with episodes of DKA, Paroxysmal VT and 3rd degree heart block s/p pacemaker implantation complicated by lead infection and subsequent replacement, PE, SVT in right arm, Right renal abscess, depression and anxiety, HTN, and CAD who presents with ongoing chest pain having been in the hospital for most of the previous month for SVT and subsequent PE, DKA and chest pain. She is well known to cardiology which are actively following the case. She is currently on Eliquis, which will be switched to Heparin per cardiology, she is further scheduled to have coronary catheterization in 2 days time. She relates that she is having active chest pain, and pain with deep inspiration. She denies nausea, vomiting, diarrhea, constipation, diaphoresis, or anxiety. In the ED she was found to have an elevated BNP, negative Trop, and elevated Alk Phos consistent with values from her prior hospitalization; as well as HTN" Hospital Course Roseline Frey is a medically complex 36 year old woman who has been hospitalized for much of the last month for PE, DKA, and SVT related complications; she presents with chest pain and a strong cardiovascular history. Now undergoing diuresis for HFrEF. Hospital day #5 1. Stress cardiomyopathy present admission, active -Cath did not show any hemodynamically significant lesions -Continued home metoprolol Succ 100 mg PO BID -Continued home Atorvastatin 80 mg PO HS -Troponin negative -CT angio noting small PEs -Continued home Aspirin 81 mg -Diuresis with IV Lasix and Digoxin per Dr. Hernandez. -Started on 12.5 mg spironolactone daily. 2. DM1, present on admission, chronic. active -Continued home insulin regimen -Insulin Glargine 15U Qam, 20U QHS -Lispro medium dose correction scale -Last A1c 8.8 during previous hospitalization -Diabetic diet 3. HTN, present on admission, chronic. Active -Continued home Lisinopril 20 mg -Continued home Lasix 40 mg PO daily -Metoprolol as above -Continued to monitor BP 4. Anxiety and depression, present on admission, chronic. Active -Continued home Venlafaxine 150 mg Qam -Continued home Amytriptyline 50 mg Qhs -Continued home Lorazepam 1 mg PO q4 PRN 5. Chronic pain, present on admission. Active -Continued home Cyclobenziprine 10 mg PO TID PRN -Acetaminophen 650 mg Q4 PRN 6. Hypothyroid, present on admission, chronic. Active -Continued home Levothyroxine 250 mcg PO daily. This was initially mistakenly ordered as 50 mg but this is correct upon discharge. Exam Vital Signs (Last) Date Time Temp Pulse Resp B/P Pulse Ox O2 Delivery O2 Flow Rate FiO2 07/06/16 12:54 37.0 79 20 103/71 94 Room Air Exam Gen: a/o x3 pleasant cooperative woman in no acute distress Neck: Supple non tender, Full ROM, mild JVD HEENT: PERRL, EOMI, no scleral icterus, no conjunctival pallor, mucous membranes moist CV: RRR, no murmurs rubs or gallops, subq pacer Resp: Lungs CTA BL, no wheezing rales or rhonchi Abd: Soft, non tender, no organomegaly Extr: Mild BL LE edema, no cyanosis or clubbing Neuro: CN 2-12 grossly intact, no focal neurologic deficit Psych: Pleasant and appropriate mood and affect. Test 07/02/16 20:03 07/03/16 04:30 07/03/16 08:32 07/04/16 22:16 Erythrocyte Sedimentation Rate 26mm/hr (0-32) Pro-B-Type Natriuretic Peptide 3552pg/mL (0-130) Prothrombin Time 11.9sec (8.1-12.5) Prothromb Time International Ratio 1.11ratio Phosphorus Level 5.0mg/dL (2.5-4.9) Total Bilirubin 0.5mg/dL (0.0-1.2) Aspartate Amino Transf (AST/SGOT) 20U/L (0-50) Alanine Aminotransferase (ALT/SGPT) 10U/L (0-32) Alkaline Phosphatase 125U/L (25-150) Total Protein 6.6g/dL (6.4-8.4) Albumin 2.8g/dL (3.4-5.0) Troponin T 0.010ug/L (0.0-0.011) Magnesium Level 1.6mg/dL (1.6-2.6) Test 07/05/16 04:00 07/05/16 19:05 07/06/16 03:54 White Blood Count 5.5th/mm3 (3.8-10.1) Red Blood Count 3.92mil/mm3 (3.90-5.20) Hemoglobin 10.2g/dL (12.0-15.6) Hematocrit 33.7% (35.0-46.0) Mean Corpuscular Volume 86.0fL (81-100) Mean Corpuscular Hemoglobin 26.0pg (27.0-35.0) Mean Corpuscular Hemoglobin Concent 30.3% (32.0-37.0) Red Cell Distribution Width 17.1% (12.3-15.4) Platelet Count 214bil/L (150-400) Neutrophils (%) (Auto) 57.8% (40-74) Lymphocytes (%) (Auto) 30.3% (14-46) Monocytes (%) (Auto) 7.6% (4-12) Eosinophils (%) (Auto) 2.7% (0-5) Basophils (%) (Auto) 1.4% (0-3) Hemoglobin A1c 8.6% (4.8-5.6) Triglycerides Level 195mg/dL (0-149) Cholesterol Level 137mg/dL (100-199) LDL Cholesterol, Calculated 71.000mg/dL (0-99) VLDL Cholesterol 39.000mg/dL HDL Cholesterol 27mg/dL (>39) Cholesterol/HDL Ratio 5.07 (0.0-4.4) Activated Partial Thromboplast Time 62.0sec (22.8-33.0) Sodium Level 140mEq/L (134-144) Potassium Level 3.9mEq/L (3.5-5.2) Chloride Level 101mEq/L (97-108) Carbon Dioxide Level 27mmol/L (18-29) Blood Urea Nitrogen 9mg/dL (6-20) Creatinine 0.67mg/dL (0.57-1.00) Estimat Glomerular Filtration Rate 141mL/min (>59) Glucose Level 150mg/dL (60-99) Calcium Level 8.5mg/dL (8.5-10.1) Discharge Medications Discharge Medications Amitriptyline (Amitriptyline) 25 Mg Tab 50-100 MG PO HS (Reported) Aspirin Chew (Aspirin Chew) 81 Mg Chew 81 MG PO QAM (Reported) Atorvastatin (Lipitor) 80 Mg Tablet 80 MG PO HS (Reported) Digoxin (Digoxin) 250 Mcg Tablet 0.25 MG PO DAILY@12 Prescribed by: XENIA TURNER DO Furosemide (Lasix) 80 Mg Tablet 80 MG PO DAILY Prescribed by: XENIA TURNER DO Insulin Aspart (NovoLOG U-100 Pen) 100 Unit/Ml Insuln.pen 1-10 UNITS SQ ASDIRECTED (Reported) PER SLIDING SCALE Insulin Glargine (Lantus U100 Insulin Vial) 100 Unit/Ml Vial 15 UNIT SUBQ QAM ( Reported) TAKE LANTUS 15 UNITS IN AM AND 20 UNITS AT HS Insulin Glargine (Lantus U100 Insulin Vial) 100 Unit/Ml Vial 20 UNIT SUBQ HS ( Reported) TAKE LANTUS 15 UNITS IN AM AND 20 UNITS AT HS Levothyroxine (Levothyroxine) 200 Mcg Tablet 200 MCG PO QAM (Reported) TAKE LEVOTHYROXINE 200 MCG W/ 50 MCG TABLET (=250 MCG) TOTAL Levothyroxine (Levothyroxine) 50 Mcg Tablet 50 MCG PO QAM (Reported) TAKE LEVOTHYROXINE 200 MCG W/ 50 MCG TABLET (=250 MCG) TOTAL Lisinopril (Lisinopril) 20 Mg Tablet 20 MG PO QAM (Reported) Metoprolol Succinate ER (Metoprolol Succinate ER) 100 Mg Tab.er.24h 100 MG PO BID (Reported) Pantoprazole DR (Pantoprazole DR) 40 Mg Tablet.dr 40 MG PO BIDWM (Reported) Spironolactone (Spironolactone) 25 Mg Tablet 12.5 MG PO DAILY Prescribed by: XENIA TURNER DO Venlafaxine ER (Venlafaxine ER) 150 Mg Tab.er.24 150 MG PO QAM (Reported) As needed Apixaban (Eliquis) 5 Mg Tablet 5 MG PO DIRECTED PRN PRN DVT 2 tablets twice per day 10 days, then 1 tablet twice per day indefinitely. Prescribed by: SEBLE LEONARDO MD Cyclobenzaprine (Cyclobenzaprine) 10 Mg Tablet 10 MG PO TID PRN PRN Spasm ( Reported) Lorazepam (Ativan) 1 Mg Tablet 1 MG PO QID PRN PRN For Anxiety (Reported) Ondansetron ODT (Ondansetron ODT) 8 Mg Tab.rapdis 8 MG PO TID PRN PRN For Nausea Prescribed by: SEBLE LEONARDO MD Followup Plan Follow-up plan Continue Toprol XL 100 mg twice a day. Continue lisinopril 20 mg twice a day. Start Digoxin. Increase Lasix 40 to 80 mg PO daily. Start 12.4 mg of spironolactone. Restart Eliquis Please follow up with Dr. Hernandez or Dr. Del Valle at his or her next available appointment. Please follow-up with your primary care provider in about 1 week. Time spent Time spent on discharging this patient was greater than 35 minutes over half of which was involved in counseling and coordination of care. Attending Statement Patient seen and examined with the resident. Chart reviewed and agree with the above discharge summary. Xenia Turner DO July 06, 2016 18:09 Jimenez Montes MD July 06, 2016 19:15
== END 2016-07-06 15:57 | disposition home or self-care (01) | DRG 287 ==
LOC: SED 19:29 → PCC 22:03 → OBSVTOIN 22:03 → PCC 23:00
PROVIDERS: ADMIT Hospitalist; ATTEND Hospitalist
PROC: 4A023N7 Measurement of Cardiac Sampling and Pressure, Left Heart, Percutaneous Approach (ICD-10-PCS; principal; 2016-07-05)
PROC: B2111ZZ Fluoroscopy of Multiple Coronary Arteries using Low Osmolar Contrast (ICD-10-PCS; 2016-07-05)
DX: I51.81 Takotsubo syndrome (principal); I10 Essential (primary) hypertension; E10.9 Type 1 diabetes mellitus without complications; F41.9 Anxiety disorder, unspecified; F32.9 Major depressive disorder, single episode, unspecified; G89.29 Other chronic pain; E03.9 Hypothyroidism, unspecified; I25.10 Atherosclerotic heart disease of native coronary artery without angina pectoris; Z86.711 Personal history of pulmonary embolism; Z79.01 Long term (current) use of anticoagulants; Z95.0 Presence of cardiac pacemaker

== ENCOUNTER 2016-09-02 00:13 | Inpatient (IN) | payer OTHER ==
[2016-09-01 18:43] VITALS: BP 145/75; RESP 24; O2SAT 96
[2016-09-02] VITALS (14 sets, daily range): BP systolic 112–153; BP diastolic 69–85; PULSE 96–114; RESP 16–24; O2SAT 97–98
[~2016-09-02] VITALS: Ht 162.6 cm; Wt 95.0 kg
--- NOTE | 2016-09-02 00:10 | NUR ---
Admission Pt admitted via flight transport team on stretcher. Pt able to ambulate to bed. Pt alert and orientated x3, full admission completed. Pt has no current voiced concerns. Tele placed.
[~2016-09-02 00:13] MED LIST changes: -CEPH500C PO; +DIGO250T72 PO; -FURO-128 PO; +FURO80TA83 PO; +SPIR25TA3 PO
--- NOTE | 2016-09-02 01:03 | PCM.HPMED ---
Subjective Date of Service Sep 02, 2016 Primary Provider: Admitting Physician: Rain Mart DO Primary Care Physician: Arielle Aguilar DO Attending Physician: Rain Mart DO Admit Status: From the Emergency Department, Direct Admit (from a transfer from [facility]) Chief Complaint: Right Perinephric abscess History of Present Illness: Patient is a pleasant 36-year-old female with complicated past medical history includes: Diabetes type 1 with baseline blood glucoses between 200-300, CAD of algaaciq artery, paroxysmal SVT status post ablation resulting in complete heart block and status post left pacemaker placement, patient then had MSSA bacteremia with removal of pacemaker in May which was cultured but was negative for growth. Patient then had new pacemaker replaced on the right upper chest. Furthermore in June of this year patient had cardiac cath performed which showed no fixed coronary artery disease. She was diagnosed with stress cardiomyopathy secondary to multiple stressors and which culminated in a diagnosis of CHF. History of right perinephric abscess is May [address], She presents as direct transfer from [facility] with complaint of acute onset 6/10 chest pain lasting 30 minutes, and associated with shortness of breath onset Friday night after having been exerting herself while walking. Patient seen states she has had intermittent chest pains that have lasted up until 4 hours on day of presentation to [facility]. Patient states that she frequently gets these chest pains with exertion. Chest pain was described as a pinpoint burning and throbbing sensation on the left upper chest and shoulder. She then reports around noon on Friday she began to feel generalized weakness and dizziness as well as left lower quadrant abdominal pain that she rated 8 out of 10. This prompted her to go to the hospital ED at [place] around 3:30 Friday afternoon. Associated symptoms include shortness of breath, generalized weakness, dyspnea on exertion. In complaint of a 4 quadrant pain. Patient further states that she checked her blood glucose earlier in the day and was elevated at 5 89 mg/dL. Patient reportedly took 15 units of NovoLog. Denied fevers, cough, chills, sweats, headaches, nausea, vomiting, diarrhea, constipation. CT abdomen and pelvis on 09/01/2016 at [facility] showed: No evidence of renal abscess, fibroid uterus, there is a 3.7 x 2.8 cm fluid density focus within the left adrenal adnexa which may represent a left ovarian cyst. There is focal fluid measuring approximately 2 x 3 cm at the posterior margin of the liver this could represent exophytic hepatic cyst or small perihepatic fluid collection. There is a small amount of free fluid in the right paracolic gutter. [facility] chemistry panel showed: Sodium 135, glucose 194, potassium 3.6, chloride 100, CO2 23, anion gap 12, BUN 15, creatinine 0.57 ESR 44, alkaline phosphatase 197, albumin 2.6, albumin/globinratio 0.6, Hemogram showed WBC 6.3, H/H 12.5/37.8, MCV 85.7, MCH 28.4, MCHC 33.1 On presentation to [facility]: Vital signs: temperature 37.0, pulse 109, tolerate 20, blood pressure 123/73 with a map of 90, 98% on room air Echo 06/25/2016: Showed left ventricle normal in size. Apical, mid inferior, mid septal and anterior stevenson severely hypokinetic. LVEF of 25-30% estimated. Compared to prior exam left ventricular function is significantly decreased. Right antrochoanal is at upper limits of normal in size, right ventricular systolic function is mildly reduced, no significant valve or heart disease. Patient had CT abdomen with contrast done on 05/28/2016 which showed: Right perinephric kidney abscess just lateral to the inferior pole of the right kidney. There is a tiny residual abscess cavity medial to the drainage catheter measuring 1.0 x 3.0 cm. Appears mild perinephric stranding around the right kidney. 2. Hepatic steatosis. 3. Bilateral effusions. 4. Soft tissue edema in the flanks bilaterally right greater than left. Chest x-ray at [facility] on 09-19s T and showed no acute cardio pulmonary process. Review of Systems: A comprehensive review of systems was conducted and was negative except as mentioned in history of present illness. Allergies Coded Allergies: amoxicillin (Verified Allergy, Severe, SHORTNESS OF BREATH, 06/18/16) Sulfa (Sulfonamide Antibiotics) (Verified Allergy, Intermediate, RASH, ) adhesive tape (Verified Allergy, Intermediate, REDNESS, 06/18/16) promethazine (Verified Allergy, Intermediate, SIDE EFFECTS JITTERY, ) oxycodone (Verified Adverse Reaction, Intermediate, SIDE EFFECT HALLUCINATIONS AND VOMITING, 06/18/16) Home Medications Amitriptyline 25 mg takes 2-4 tablets by mouth at bedtime Ativan 1 mg 4 times daily when necessary Atorvastatin 80 mg tablet daily Cyclobenzaprine 10 mg tablet, takes 1 tablet by mouth 3 times daily Hydrocodone 5/325 gram, takes 1 tablet every 6 hours when necessary Levothyroxine 250 g daily Lisinopril 20 mg daily Metoprolol succinate ER 100 mg takes 1 tablet by all route 2 times daily Nitrostat 0.4 mg sublingual NovoLog 100 units per milliliter Pantoprazole 40 mg 2 times daily Tojeo [id number] units per milliliter inject 50 units at night Venlafaxine ER 150 mg daily PMH Past medical history: Obesity CAD of a algaaciq artery Complete heart block 07/18/2016 Mitral valve insufficiency Pacemaker Acute bacterial endocarditis 05/06/2016 Pericarditis History of staph aureus bacteremia 06/12/2016 History of perinephric abscess for 06/12/2016 Hypothyroidism with history of Graves' disease Type I diabetes mellitus with diabetic polyneuropathy Generalized anxiety disorder/depression Lumbar DDD Surgical History Pacemaker 2 Appendectomy Cholecystectomy Cyst removal Right oophorectomy Hernia repair abdominal Thyroidectomy Tonsillectomy Family History Brother with type I diabetes who at age 33 Father with type II diabetes, coronary artery disease status post CABG 6, with kidney cancer, and now on dialysis. Mother history of DVTs Social History Hx Alcohol Use: No Hx Substance Use: No Hx Tobacco Use: No Smoking Status: Never Smoker Living Arrangement: with Family (patient was with her father Eddi telephone [phone]) Exam Vital Signs Vital Sign - Last Date Time Temp Pulse Resp B/P Pulse Ox O2 Delivery O2 Flow Rate FiO2 09/02/16 00:23 37.0 109 20 123/73 98 Room Air Exam General: Obese female alert and oriented 3, in no apparent distress laying comfortably in bed. HEENT: NC/AT, eyes, PERRLA, EOMI, neck, soft supple, no adenopathy, no JVD, no masses, no thyromegaly, throat mucous membranes pink and moist, no erythema, no exudates, no tonsillar swelling, no uvular deviation. Lungs: CTAB all harrison, no wheezes, no rhonchi, no crackles, no adventitious lung sounds, no use of accessory muscles of respiration, good air movement, good respiratory effort. Heart: Tachycardic with regular rhythm, no murmur, S1-S2 present, no rub, no click, no distant heart sounds, Abdomen: Soft, tender to palpation midline beneath the umbilicus there is a firm palpatory finding, there is tenderness over the left lower quadrant, abdomen is nondistended, bowel sounds active, no rebound, no guarding, there is a rash beneath the pannus Genitourinary: No CVA tenderness, no suprapubic tenderness, no Thomason catheter, Extremities: pulses equal and symmetric upper/lower extremity including radial and dorsalis pedis, no edema Neurologic: See neurologically intact, PT in full sentences, no focal neurological signs, [id number], [id number], no pronator drift, no hemineglect. Skin: Rash between beneath patient's pannus, bilateral upper extremity dorsal arms with excoriations. Psychiatric: Mood is cheerful and mood and affect are congruent and appropriate. Assessment & Plan Patient is a pleasant 36-year-old female with complicated past medical history includes: Diabetes type 1 with baseline blood glucoses between 203 100, coronary artery disease of algaaciq artery, paroxysmal SVT status post ablation resulting in complete heart block and now with pacemaker 2, history of right perinephric abscess as seen on CT in June 2016, history of MSSA bacteremia in June 2016, who presents as direct transfer from [facility] with complaint of acute onset chest pain of the left upper chest radiating to the shoulder, and left lower quadrant abdominal pain. Patient was found to have a left adnexal cyst, and a perihepatic fluid collection consistent with perinephric abscess on CT abdomen and pelvis. Patient was transferred to [facility] for complexity of medical management and further workup. # Left Lower Quadrant pain, present on admission, active Likely secondary to the 3.7 x 2.8 cm fluid density focus within the left adnexa seen on CT of abdomen and pelvis and consistent with a left ovarian cyst. Out patient follow-up recommended. # Perihepatic fluid collection in a diabetic Type 1 with Hx of prior Perinephric Abscess, Right, present on admission - CT abdomen and pelvis from [place] 09/01/2016: shows 2X3 cm Fluid collection posterior to the margin of the liver. May represent exophytic hepatic cyst or small perihepatic fluid collection. Fluid in the pericolic gutter (outside records reviewed on admission by admitting team) - CXR at [place] with no acute cardiopulmonary process. - EKG from [place], Paced rhythm, rate 114 (reviewed on admission by admitting team) - On presentation to [facility]: Vital signs: temperature 37.0, pulse 109, tolerate 20 , blood pressure 123/73 with a map of 90, 98% on room air - Patient had CT abdomen with contrast done on 05/28/2016 which showed: Right perinephric kidney abscess just lateral to the inferior pole of the right kidney. There is a tiny residual abscess cavity medial to the drainage catheter measuring 1.0 x 3.0 cm. Appears mild perinephric stranding around the right kidney. 2.Hepatic steatosis. 3.Bilateral effusions. 4.Soft tissue edema in the flanks bilaterally right greater than left. - We will obtain blood cultures 4 - Infectious disease aware of patient, will see patient in the morning. Consult has been placed and case discussed prior to admission by admitting team , thank you Dr. Ambrose for your recommendations. - Patient NPO after midnight for possible IR drain - Will consult with IR in the morning regarding this finding. - We will start meropenem 1000 mg every 8 hours - We will start normal saline at 125 per hour - Lactic acid, and blood cultures 2 sets of 2, hemoglobin A1c, CBC, CMP, troponin, ordered and pending # Chest pain, rule out acute coronary syndrome, present on admission - She had negative troponin at [place], some concern initially was expressed for possible endocarditis given clinical picture prior to CT scan however CT with fluid collection - EKG [place] was paced rhythm with a rate of 114 - The patient reportedly received Nitropaste [facility] ED which helped resolve her chest pain. - Repeat troponin here - Continue aspirin 81 mg - Continue morphine 1-2 mg IV every 4 - We will get cardiology consult in the morning, admitting team briefly discussed case with Dr. Hernandez prior to admission - Patient on digoxin with normal digoxin level 0.1 # Bilateral Pleural effusions, - As seen on CT abdomen and pelvis from [facility]. Effusions also present on 05/28/2016 # Hyperglycemia, present on admission, active - [facility] labs show glucose of 194 - We will place patient on medium dose correctional scale insulin once she is no longer nothing by mouth - Patient currently nothing by mouth for possible interventional radiology procedure - We will continue Lantus 25 units in the morning and 20 units at night - We will continue serial blood glucose checks Chronic Problems # CAD of a algaaciq artery - Continue home medication L a course 5 mg 1 tab 2 times daily # Complete heart block 07/18/2016, status post pacemaker placement 2 -Patient was found to be bacteremic after first pacemaker placement, which was removed. The culture of the components of the pacemaker did not grow bacteria. Patient then had new pacemaker replaced. -Echo 06/25/2016: Showed left ventricle normal in size. Apical, mid inferior, mid septal and anterior stevenson severely hypokinetic. LVEF of 25-30% estimated. Compared to prior exam left ventricular function is significantly decreased. Right atrium is at upper limits of normal in size, right ventricular systolic function is mildly reduced, no significant valve or heart disease. -David was consulted by phone regarding this patient prior to admit. We will get official cardiology consult in the morning. - Patient takes digoxin, digoxin level 0.1 at [facility] and within normal limits and continue medication as appropriate # CHF - Continue medication Lasix 80 mg daily - Continue medication spironolactone 25 mg daily # Mitral valve insufficiency # History of Acute bacterial endocarditis 05/06/2016 # History of Pericarditis # History of MSSA staph aureus bacteremia 06/12/2016 # Hypothyroidism with history of Graves' disease - We will continue Levothyroxine 250 g daily # Type I diabetes mellitus with diabetic polyneuropathy - Lisinopril 20 mg daily - We will hold Metoprolol succinate ER 100 mg takes 1 tablet by all route 2 times daily - We will hold NovoLog 100 units per milliliter, - We will continue Tojeo solstar 300 units per milliliter inject 50 units at night #Generalized anxiety disorder/depression - We will continue Amitriptyline 25 mg takes 2-4 tablets by mouth at bedtime - We will continue Ativan 1 mg 4 times daily when necessary - We will continue Venlafaxine ER 150 mg daily #Dyslipidemia - Continue Atorvastatin 80 mg tablet daily #Lumbar DDD -Continue Cyclobenzaprine 10 mg tablet, takes 1 tablet by mouth 3 times daily -Hydrocodone 5/325 gram, takes 1 tablet every 6 hours when necessary #Obesity # GERD - Pantoprazole 40 mg 2 times daily Disposition: Admitted to in patient service with expected length of stay greater than 2 days, secondary to severity of presenting symptoms, treatment plan, complexity of clinical work up, and risk of adverse events. CODE STATUS: Full code PCP: Arielle Aguilar D.O Patient is seen by parts room assistant Dr. Del Valle DVT PE prophylaxis: SCD's Contact: Father Eddi [phone] Mother Varsha [phone] VTE Prophylaxis: SCDs Resuscitation Status: CPR: Attempt Resuscitation Attending Statement The patient was seen and examined together with house staff on and I agree with the history, exam and plan as outlined in the note above. Genaro Diego DO Sep 02, 2016 01:03 Rain Mart DO Sep 02, 2016 04:31
[2016-09-02] MEDS ORDERED: Alum-Mag Hydrox-Simeth 30 mL Suspension PO PRN (01:15)
[2016-09-02] MEDS ORDERED: Polyethylene Glycol (PEG) 17 Gm Powder PO PRN (01:15)
[2016-09-02] MEDS ORDERED: Ondansetron 2 mg/mL 2 mL Inj IVPUSH PRN (01:15)
[2016-09-02] MEDS: 0.9% Sodium Chloride 1,000 ML IV SCH ×2 (01:49→17:01)
[2016-09-02] MEDS: Meropenem Inj 1,000 MG in 0.9% Sodium Chloride 100 ML IV SCH ×3 (04:21→20:02)
[2016-09-02] MEDS: Sodium Chloride LOK Flush 10 mL Syringe IVFLUSH SCH ×2 (04:24→16:30)
[2016-09-02] MEDS ORDERED: Glucose 40% Oral Gel 15 Gm Tube PO PRN ×2 (04:40→07:30)
[2016-09-02] MEDS ORDERED: Dextrose 10% 250 ML IV PRN ×2 (04:40→07:30)
[2016-09-02 04:51] LABS: BASOPHILS % (AUTO) 0.6 % (0-3); EOSINOPHILS % (AUTO) 0.8 % (0-5); MONOCYTES % (AUTO) 7.5 % (4-12); Mean Corpuscular Hemoglobin 28.7 pg (27.0-35.0); Mean Corpuscular Volume 89.6 fL (81-100); Platelet Count 230 bil/L (150-400)
[2016-09-02 05:23] LABS: TROPONIN T 0.01 ug/L (0.0-0.011)
[2016-09-02 05:34] LABS: Magnesium 1.7 mg/dL (1.6-2.6)
[2016-09-02] MEDS ORDERED: Insulin Human NPH-Reg 70-30 100 Unit/mL 10 ML Mdv SUBQ ONE (06:50)
[2016-09-02] MEDS ORDERED: Insulin LISPRO 300 Unit/3 mL Inj SUBQ SCH (08:00)
[2016-09-02] MEDS ORDERED: Insulin LISPRO 300 Unit/3 mL Inj SUBQ ONE (08:25)
[2016-09-02] MEDS ORDERED: Insulin Human NPH 100 Unit/mL Syringe SUBQ ONE (08:25)
[2016-09-02] MEDS: Insulin GLARgine 100 Unit/mL Syringe SUBQ SCH (10:00)
[2016-09-02] MEDS: Venlafaxine XR 75 mg ER24 Capsule PO SCH (11:25)
[2016-09-02] MEDS ORDERED: Insulin LISPRO High-Dose Scale SUBQ PRN (12:05)
[2016-09-02] MEDS: Heparin 5,000 Unit/mL Inj SUBQ SCH ×2 (12:34→17:01)
[2016-09-02] MEDS: Insulin LISPRO High-Dose Scale SUBQ SCH ×3 (12:36→22:21)
[2016-09-02 12:40] LABS: INR 0.94 ratio
--- NOTE | 2016-09-02 15:30 | NUR ---
BG Pt last BG 91, per Dr. Logan give pt glucose. Unable to do so at this time due to pt only having oral glucose to take. Pt NPO at this time. NEVILLE RN made aware, RN stating will monitor pt's BG.
--- NOTE | 2016-09-02 15:46 | PCM.PNMED ---
Subjective Date of Service Sep 02, 2016 Subjective Patient was transferred from [facility] in [place] to [facility] for a possible perihepatic fluid collection, hyperglycemia, and chest pain. No acute event overnight. Today, patient admits that her chest pain has resolved with Nitro. She is still very uncomfortable with the bilateral lower abdominal pain. She notes that her menstrual period was a little irregular last month with some spotting in between periods. She denies any history of ovarian torsion, but states that the right ovary was removed due to cysts. Patient denies any shortness of breathe, chest pain, fever, chills, nausea, or vomiting currently. Exam Vital Signs Vital Sign - Last Date Time Temp Pulse Resp B/P Pulse Ox O2 Delivery O2 Flow Rate FiO2 09/02/16 12:07 36.9 102 24 112/69 98 Room Air Exam General: Obese female alert and oriented 3, in no apparent distress laying comfortably in bed. HEENT: NCAT, PERRLA, EOMI, neck, soft supple, no adenopathy, no JVD, no masses, no thyromegaly, mucous membranes pink and moist. Lungs: CTAB all harrison, no wheezes, no rhonchi, no crackles, no use of accessory muscles of respiration, good air movement, good respiratory effort. Heart: Mild tachycardic with regular rhythm, no murmur, S1-S2 present. Right pacemaker in place, mild tender to palpation but no signs of infection. Abdomen: Soft, nondistended, tender to palpation in LLQ and RLQ. No rebound, no guarding. Bowel sounds active. Genitourinary: Bilateral CVA tenderness, no suprapubic tenderness. Extremities: pulses equal and symmetric upper/lower extremity including radial and dorsalis pedis, no edema Neurologic: normal speech, no focal neurological signs. IVs and Medications Medications Reviewed: Medications were reviewed in detail Lab and Diagnostics Result Diagram: 09/02/1643909/[id number]/16439 Assessment & Plan 36-year-old female with complicated past medical history who was transferred to [facility] for chest pain and perihepatic fluid collection as evidence to CT scan. # Perihepatic fluid collection in a diabetic Type 1 with Hx of prior Perinephric Abscess, Right, present on admission - Patient has a history of a right perinephric abscess that led to MSSA bactermia in June 2016. - Her CT abdomen and pelvis from [place] 09/01/2016 showed a 2X3 cm fluid collection posterior to the margin of the liver. May represent exophytic hepatic cyst or small perihepatic fluid collection. Small amount of free fluid in the pericolic gutter. - There is concern of possible recurrent right perinephric abscess, and thus IR was consulted for possible percutaneous drainage. Cannot obtain CT film from [facility] and will repeat her CT abd/pelvis with contrast at this point. - Will hold Eliquis given possible procedure. Last dose was yesterday morning. - Protime normal. - Patient has been NPO for possible drainage. Will fluid for culture if it can be drained. - ID was consulted as patient is a regular patient of Dr. Ambrose. Will appreciate his recommendations. Meropenem was initiated on admission. Will continue the antibiotics until clear by ID. Patient does not have any sign or symptoms of infection otherwise. - Lactic acid and procalcitonin are both negative. - Blood cultures pending. # DKA, present on admission, improved. - Patient had BG of 462 and large Ketone on admission. Gap of 21. - Patient admits that she skipped the morning Lantus dose yesterday because she did not have breakfast. - She was given a dose of NPH 70-30 this morning and her BG dropped to 205. No indication to start insulin drip at this point. - Will resume home dose of Lantus 25 units in the morning and 20 units at night. Will consider doing just one time dose with Lantus QHS if patient is ok with it. - Patient currently nothing by mouth for possible interventional radiology procedure. Will add medium correctional scale once she starts eating. - A1c pending. - Hold home nutritional Novolog. - We will continue serial blood glucose checks. - Judicious use of IVF given her history of CHF. # Chest pain, rule out acute coronary syndrome, present on admission, resolved. - She had negative troponin at [place] - EKG [place] was paced rhythm with a rate of 114. Patient reportedly received Nitropaste [facility] ED which resolved her chest pain. - Repeat troponin here negative. - Continue aspirin 81 mg - Continue morphine 1-2 mg IV PRN - Admitting team briefly discussed case with Dr. Hernandez prior to admission, but will not need cardiology consultation at this point. - Patient on digoxin at home with normal digoxin level 0.1. will resume Digoxin. # Acute bilateral lower quadrant abdominal pain, present on admission, active. - The LLQ could be due to an ovarian cyst as a 3.7x2.8cm fluid density focus within the left adnexa. Will need 6 week pelvic U/S as outpatient. - The cause RLQ pain is unclear in this patient with history of appendectomy, cholecystectomy, and right oophorectomy. Other differential could be gastroenteritis, UTI, DKA, constipation, diverticulitis, or endometriosis. - Will continue to monitor symptoms and signs of infection. Patient reports good pain relief with Morphine IV currently. Will consider oral pain med once she is no longer NPO. - Judicious use of IVF given her history of CHF. Chronic Problems # CAD of a [place] artery - Continue home medications: Lipitor, Lisinopril, Lipitor, and ASA. - Patient is also on Eliquis. Will hold for possible IR procedure. - Heparin IV for DVT prophylaxis. # Complete heart block 07/18/2016, status post pacemaker placement 2 -Patient was found to be bacteremic after first pacemaker placement, which was removed. The culture of the components of the pacemaker did not grow bacteria. Patient then had new pacemaker replaced. -Echo 06/25/2016: Showed left ventricle normal in size. LVEF of 25-30% estimated. -Patient takes digoxin, digoxin level 0.1 at [facility] and within normal limits and will continue Digoxin. # Systolic CHF, chronic, stable. - Last Echo in June 2016 showed EF to be 25-30% - Hold Lasix 80 mg daily until DKA resolves. - Continue home spironolactone, Lisinopril, and Metoprolol. # Type I diabetes mellitus with diabetic polyneuropathy, uncontrolled. - We will hold nutritional NovoLog - We will continue Lantus as above. #Generalized anxiety disorder/depression, chronic. - will continue Amitriptyline 25 mg takes 2-4 tablets by mouth at bedtime, Ativan 1 mg QID PRN - We will continue Venlafaxine ER 150 mg daily #Dyslipidemia, chronic. - Continue Atorvastatin 80 mg tablet daily #Lumbar DDD, chronic, presume stable. -Continue Cyclobenzaprine 10 mg tablet, takes 1 tablet by mouth 3 times daily -Hydrocodone 5/325 gram, takes 1 tablet every 6 hours when necessary # Hypothyroidism with history of Graves' disease - We will continue Levothyroxine 250 g daily. - check TSH and T4. # Mitral valve insufficiency # History of Acute bacterial endocarditis 05/06/2016 # History of Pericarditis # History of MSSA staph aureus bacteremia 06/12/2016 #Obesity # GERD - Continue Pantoprazole 40 mg 2 times daily Disposition: Admitted to in patient service with expected length of stay greater than 2 days, secondary to severity of presenting symptoms, treatment plan, complexity of clinical work up, and risk of adverse events. CODE STATUS: Full code PCP: Arielle Aguilar D.O Patient is seen by cleaner industrial Dr. Del Valle DVT PE prophylaxis: SCD's Contact: Father Eddi Mother Varsha [phone] Pain Evaluation: Adequate Pain Control GI Prophylaxis: Proton Pump Inhibitor VTE Prophylaxis: Sub-Q Heparin (Unfractionated), SCDs Resuscitation Status: CPR: Attempt Resuscitation Attending Statement Patient seen and examined with house staff. Agree with all attached documentation. Tanmay Logan DO Sep 02, 2016 13:12 Gonzalez Arreaga MD Sep 03, 2016 13:26
[2016-09-02] MEDS ORDERED: Insulin LISPRO High-Dose Scale SUBQ SCH (17:00)
[2016-09-02] MEDS: Pantoprazole 40 mg ER24 Tablet PO SCH (17:04)
--- NOTE | 2016-09-02 17:45 | NUR ---
Pt to CT pt stating NPO through the day for possible procedure after CT. Pt was taken to CT via bed. Ongoing care.
[2016-09-02] MEDS ORDERED: fentaNYL-PF 50 mCg/mL 2 mL Inj ONE (18:02)
--- NOTE | 2016-09-02 19:27 | DRSVH ---
PROCEDURE: CT-GUIDED ASPIRATION OF RENAL/PELVIC CYST (PNL-7483) INDICATIONS: FLIUD ASP COMPARISON: [facility], CT, CT ABD PELVIS W CON, 09/02/2016, 17:45. FINDINGS: Informed, written consent from the patient was obtained prior to the procedure. The patient was broug ht to the angiography suite and conscious sedation administered intravenously by nursing home staf f while continuous cardiorespiratory monitoring was performed. Cellars Supervisor imaging of the perinephric fluid collection was performed with overlying localization grid. The appropriate skin site for access was prepped and draped sterilely and infused with lidocaine. Under CT guidance a 20 gauge needle was adva nced into the fluid collection. 6 cc of cloudy fluid was aspirated and sent to the lab for further ev aluation. The patient tolerated the procedure well and left the Department of radiology in stable con dition. IMPRESSION: Successful aspiration of a right perinephric fluid collection. 6 cc of aspirated fluid was sent to e lab for further evaluation. Dictated by: Jovani Choudhary M.D. on 09/02/2016 at 19:17 Approved by: Jovani Choudhary M.D. on 09/02/2016 at 19:19
--- NOTE | 2016-09-02 19:29 | NUR ---
[facility]: Pt arrived to [facility] room [address] at 184. No c/o pain at R lower posterior lung aspiration site, bandaid dressing to site C/D/I. VSS on RA, pt tolerating po intake. C/O 2/10 abdominal pain, tolerable for patient, watching TV at this time.
--- NOTE | 2016-09-02 19:49 | DRSVH ---
PROCEDURE: CT ABDOMEN AND PELVIS WITH CONTRAST (PNL-7102) INDICATIONS: Abdominal pain, perihepatic fluid collection TECHNIQUE: After the administration of intravenous contrast, 5 mm thick sections acquired from the diaphragm to the symphysis. 5 mm coronal and sagittal reformats were acquired. For radiation dose reduction, the following was used: automated exposure control, adjustment of mA and/or kV according to patient alicia sargent. COMPARISON: [facility], CT, CT ABD PELVIS W CON, 06/18/2016, 17:29. FINDINGS: Image quality: Excellent. ABDOMEN: Lung bases: Lung bases are clear. Heart size is normal. Solid organs: Liver and spleen are normal in size and enhancement. Gallbladder surgically absent. Biliary system is non dilated. Pancreas enhances normally. No adrenal nodules. Kidneys demonstrate normal size and enhancement, without hydronephrosis. Peritoneum and bowel: Bowel loops demonstrate normal wall thickness and caliber. There is mild perih epatic and right paracolic gutter free fluid. Minimal stranding seen in the right paracolic gutter. A ppendix appears normal. Nodes and vessels: No retroperitoneal or mesenteric adenopathy by size criteria. Aorta and inferior vena cava are normal in size. Miscellaneous: No ventral hernias. Subcutaneous stranding and small bubbles of gas may be injection related. PELVIS: Genitourinary: Bladder wall thickness is normal. Heterogeneous nodular appearance of the uterus as before probably reflecting uterine fibroids although this could be confirmed with dedicated pelvic ul trasound. Miscellaneous: No inguinal hernias or adenopathy. Bones: No suspicious bony lesions. No vertebral body compression fractures. IMPRESSION: Mild perihepatic free fluid and stranding seen in the right paracolic gutter, technically non-specifi c. This is grossly unchanged since the prior study dated 06/18/16. No abscess seen Uterine fibroids as before. Dictated by: Олег Ventura M.D. on 09/02/2016 at 19:42 Approved by: Олег Ventura M.D. on 09/02/2016 at 19:47
--- NOTE | 2016-09-02 19:54 | CONS ---
[address] [address] CONSULTATION REPORT PATIENT: KAYLEE TURNER : 1980 MR#: [id number] ADMIT: 09/02/2016 JOB ID: [id number] DATE OF SERVICE: 09/02/[address] Logan for this timely consult. REASON FOR CONSULTATION: Possible intra-abdominal infection in a patient with a recent history of staphylococcal bacteremia. HISTORY OF PRESENT ILLNESS: The patient is an incredibly complex case whom I got to know this spring. The patient is a 36-year-old type 1 diabetic with multiple medical problems. She underwent an attempt at an ablation for supraventricular tachycardia back in March of this year. Unfortunately, as a consequence of this, she developed complete heart block requiring a pacemaker. Subsequently, she developed bacteremic MSSA pyelonephritis with perinephric abscess. Perinephric abscess was drained and the patient received a prolonged course of anti MSSA antibiotics. We were unable to determine with certainty whether or not the recently installed pacer could have been infected by the high-grade MSSA bacteremia and, finally, Dr. Del Valle and I decided that it would be best to simply explant the 1st pacer, place a temporary pacer for a couple of weeks, and then reimplant a new pacer. This was done during a long hospitalization in June. Towards the conclusion of that hospital there were also two separate species of coag-negative Staph isolated from a single set of blood cultures, which likely represented contaminants but to be cautious, we went ahead and treated the patient for a very prolonged course against both MSSA which was a true pathogen arising from a perinephric abscess as well as the Staph epi which was of uncertain significance. The patient finished these antibiotics at about the end of June. Unfortunately, following that time, she had other complications including a DVT with small pulmonary embolus as well as the development of cardiomyopathy. The patient finally achieved a period of stability here in the last few weeks and was over in [place] on this past weekend visiting her boyfriend. While there, she was feeling reasonably well when she developed progressive shortness of breath with ambulation, generalized weakness, chest pain which radiated to her left shoulder and lightheadedness. In addition to these cardiac-sounding symptoms, she developed some left lower as well as right lower quadrant pain and while in the emergency department in [place] also developed some right flank pain. All of this abdominal and flank pain was new. In addition to her shortness of breath, exertional chest pain and weakness. She noted that her blood sugars were running out of control despite compliance with insulin. She denied, however, any fevers, chills, sweats, or productive cough though she did have a dry cough in association with her shortness of breath. She also denied nausea, vomiting, diarrhea. While at [facility] in [place] yesterday, a CT scan of the abdomen was done which showed a fluid density in the left adnexa which could be, of course, an ovarian cyst. In addition, there was a small fluid collection noted at the posterior margin of the liver which was thought to be possibly a liver cyst or a small perihepatic fluid collection. Because of these findings, the [facility] on-call doctor was called who in turn contacted me to discuss the advisability of transferring this patient whom we know so well. We eventually decided it would be reasonable as her records and grain loader and other health home health aide caregiver are in this area. The patient was therefore transferred overnight. PAST MEDICAL HISTORY: 1. Type 1 diabetes. 2. Organic heart disease; a. Coronary artery disease. b. Complete heart block requiring pacer. c. Mitral valve insufficiency. d. Possible pacer infection in 2017 with explantation and reimplantation of pacer. 3. History of perinephric abscess with MSSA bacteremia, June 2016. 4. Hypothyroidism secondary to Graves disease. 5. Diabetic neuropathy. 6. Generalized anxiety. 7. Status post appendectomy, cholecystectomy and right oophorectomy. SOCIAL HISTORY: The patient is a nonsmoker, nondrinker. Lives with her father on [facility]. She has a boyfriend whom she visits frequently in [place]. FAMILY HISTORY: Negative for tuberculosis but positive for a brother who of complications of type 1 diabetes as well as a father who has type 2 diabetes and is on dialysis. REVIEW OF SYSTEMS: Was done. This afternoon, the patient has minimal headache which she describes as baseline for her. No acute visual complaints. No sores in the mouth or sore throat. She is not having stiff neck. She is short of breath with exertion and has a cough which is dry and nonproductive. She has intermittent chest pain especially with exertion and this has been a major problem over this weekend. She has had some nausea as well as right lower quadrant pain, left lower quadrant pain and recently right flank pain. She has had absolutely no dysuria, urgency, or frequency. She can walk and has no particular problem with her joints at this point, but she notes her ambulatory status is quite limited because of weakness and dyspnea. No nausea. No skin rash has been noted. Remainder of the review of systems is negative. PHYSICAL EXAMINATION: Reveals a young woman in no acute distress. She looks somewhat chronically ill. Weight 78 kg. BMI 30. Her current temperature 36.9, she has been afebrile since admission and by report was afebrile in [place] in the hospital there yesterday. Pulse 102, respiratory rate 24, blood pressure 112/89. She is saturating well on room air and looks reasonably comfortable compared to how she looked when she was here earlier this year. Her head is without trauma. Eyes without conjunctivitis or scleral icterus. Her nose is normal. The oral cavity without thrush or hairy leukoplakia. The neck is supple. Notable JVD this afternoon. Her lungs are fairly clear. Cardiac tones: Regular rate and rhythm without significant murmur. The pacer is present in the right upper chest and is nontender. In the left upper chest there is a scar where the prior pacer was removed. The abdomen has hypoactive bowel sounds and is tender clearly in the left lower quadrant and right lower quadrant. With respect to percussion of the flanks, there is some pain on the right side. No ascites is noted. No hepatosplenomegaly. She does not have a Thomason catheter. There is no suprapubic tenderness. The joints are without evidence of synovitis or swelling. There is no skin rash. She is neurologically intact and has about 4/5 strength. Labs include white count 6600, normal diff. Creatinine 0.5, calcium 8.3, lactate 1.0. LFTs normal. Alk phos slightly up at 167. Procalcitonin is 0. I have asked for a CRP and this is pending. When admitted here, the patient had large ketones in the urine and a glucose of almost 500. Blood cultures done here negative. I called the hospital at [place] and checked on the blood cultures there and they are negative at this point. IMPRESSION: This is an extremely complex case of a woman who shortly after a pacer was placed earlier this year developed a high-grade, methicillin-sensitive Staphylococcus aureus bacteremia apparently due to a methicillin-sensitive Staphylococcus aureus perinephric abscess that was drained. Because of concerns regarding her pacer it was explanted and then reimplanted. Early in the game, one set of blood cultures grew two different species of coag-negative staph, and so we treated her for both MSSA which was a real pathogen and coag-negative staph which probably was not. She finished all that therapy at about the end of June and seemed stable though she went on to have issues with DVT, pulmonary embolism, and congestive heart failure. She was well enough to go and visit her boyfriend over the weekend in [place], but while there she developed a wide variety of symptoms but primarily revolving around exertional shortness of breath, chest pain, dry cough and the symptoms one would ordinarily associate with congestive heart failure and/or cardiomyopathy. She also though while in the hospital really at [place] started to complain about lower abdominal pain as well as some right flank pain. The right flank pain is especially worrisome because this was the site of her extensive perinephric MSSA infection we treated long-term. We were also, of course, extremely concerned about the possibility of bacteremia or fungemia in this patient and the risk that would be associated with her now 2nd pacer in place. This afternoon, though, I see little to suggest infection. The patient has been observed now for a couple of days both at [place] and here and there is no fever nor is there any elevation of white blood count and a procalcitonin is 0. Multiple blood cultures drawn at [place] and four bottles drawn here are negative as well. Unfortunately, we cannot transmit the images of the CAT scan from [place] to here and our Radiology team has recommended just repeating a CT scan of her abdomen with a plan to do a needle drainage if significant fluid collection is encountered. I think this is an excellent plan. As to whether or not she needs an intravenous antibiotic coverage while we try and figure all this out, it is not entirely clear to me. Given her immunosuppressed state, by virtue of her severe type 1 diabetes, diabetic ketoacidosis and other issues as well as her 2nd pacer now in place, I think it is reasonable to cover her short-term until we get this sort out. RECOMMENDATIONS: 1. I agree with plans for CT and needle drainage. 2. The patient has been started on meropenem as a sole IV antibiotic, and I think that is reasonable while we await our cultures, but I would not pursue this very long unless we find more definitive evidence of infection. 3. I will continue to closely watch this patient with you and hope that we have positive results on the CT that will allow us to obtain some more definitive answers.
--- NOTE | 2016-09-02 20:20 | NUR ---
back from [facility] pt back from [place] around 1949, tolerating procedure well, pt hungry order to advance diet, pt eating and tolerating, pt c/o pain in her abd and right side back area where they aspirated fluid, bandaid in place c/d/i, need UA still, IVF running
[2016-09-02] MEDS: MeTOProlol XL 50 mg ER24 Tablet PO SCH (20:24)
[2016-09-02] MEDS ORDERED: Insulin GLARgine 100 Unit/mL Syringe SUBQ SCH ×3 (20:30→21:00)
[2016-09-02 22:27] LABS: APPEARANCE,URINE CLEAR (CLEAR,HAZY); COLOR,URINE YELLOW (YELLOW); OCCULT BLOOD,URINE TRACE (NEGATIVE); UROBILINOGEN,URINE NORMAL (NORMAL)
[2016-09-02 22:28] LABS: YEAST,URINE MODERATE (NONE SEEN)
[2016-09-03] VITALS (8 sets, daily range): BP systolic 91–125; BP diastolic 54–84; PULSE 66–101; RESP 16–20; O2SAT 96–100
[2016-09-03] MEDS: Sodium Chloride LOK Flush 10 mL Syringe IVFLUSH SCH ×3 (00:30→16:30)
[2016-09-03] MEDS: Heparin 5,000 Unit/mL Inj SUBQ SCH ×2 (00:34→08:23)
[2016-09-03] MEDS: Meropenem Inj 1,000 MG in 0.9% Sodium Chloride 100 ML IV SCH ×3 (03:44→19:38)
[2016-09-03 03:52] LABS: BASOPHILS % (AUTO) 0.7 % (0-3); MONOCYTES % (AUTO) 8.6 % (4-12); Mean Corpuscular Volume 90.7 fL (81-100); NEUTROPHILS % (AUTO) 64.9 % (40-74); Platelet Count 248 bil/L (150-400)
--- NOTE | 2016-09-03 06:15 | NUR ---
pain pt c/o pain in lower abd and right lower back where they aspirated fluid. IV morphine given x2 pt able to drift off to sleep after morphine. bandaid on back c/d/i
[2016-09-03] MEDS: Pantoprazole 40 mg ER24 Tablet PO SCH ×2 (08:04→18:05)
[2016-09-03] MEDS: Venlafaxine XR 75 mg ER24 Capsule PO SCH (08:12)
[2016-09-03] MEDS: MeTOProlol XL 50 mg ER24 Tablet PO SCH ×2 (08:13→21:44)
[2016-09-03] MEDS: Insulin LISPRO High-Dose Scale SUBQ SCH ×4 (08:22→22:00)
[2016-09-03] MEDS: Insulin GLARgine 100 Unit/mL Syringe SUBQ SCH ×2 (08:23→21:44)
--- NOTE | 2016-09-03 09:15 | NUR ---
Social Work Note: Screen Note Data& Assessment: EMR reviewed. Roseline Frey is a 36 year old female admitted on 09/02/2016 for paranephric abscess. Pt has [employer] insurance coverage and sees Arielle Aguilar DO for primary care. Pt lives in [place] with her father and is independent at baseline. Pt is currently independent in her room per RN charting. Pt is currently on IV meropenum ABX, blood cultures pending per ID MD. SW to continue to follow to r/o IV abx at time of discharge and await MD orders. No other discharge needs identified at this time. Plan: Anticipated discharge home via POV when medically ready. SW to continue to follow for pt needs and MD orders. No other discharge needs identified at this time. DAYLIN Briones
--- NOTE | 2016-09-03 09:56 | NUR ---
Hygiene Pt refusing bath by this RN and EMERGENCY VETERINARY TECHNICIAN several times. Pt offered tub of soapy water for arms. Pt stated she doesn't want to bathe today. Pt encouraged to bathe to prevent rash. Care continues.
--- NOTE | 2016-09-03 10:17 | PROG NOTE ---
[address] [address] PROGRESS NOTE PATIENT: KAYLEE TURNER : 1980 MR#: [id number] ADMIT: 09/02/2016 JOB ID: [id number] DATE: 09/03/2016 REASON FOR FOLLOWUP: Possible right flank infected fluid collection. INTERVAL HISTORY: Overnight, the patient has been free of fevers or chills. She intermittently is short of breath, and has a cough productive of thin whitish sputum at times. No chest pain per se. She continues to have right flank pain, as well as bilateral lower abdominal pain. She otherwise has no new complaints, however. PHYSICAL EXAMINATION: Reveals an obese woman, in no acute distress. Temp 36.8, pulse 70, respiratory rate 18, blood pressure 112/70. She is saturating well on room air, and she does not appear to be in any distress. Examination of the oral cavity is unremarkable. There is no thrush. Her mental status is normal. Lungs relatively clear anteriorly. Cardiac tones without new murmur. Abdomen: Mild diffuse lower abdominal tenderness. There is significant right flank tenderness, and none on the left. No skin rashes noted. LABORATORIES: Include a white count again completely normal today at 5900. Creatinine 0.62. CRP yesterday was 0.7, just slightly above normal. Procalcitonin is less than 0.1 on two measurements. Urinalysis without white cells. Blood cultures are negative. Yesterday, the patient did undergo aspiration of the fluid seen at the inferior aspect of the liver. This fluid has no white cells and no organisms. IMAGING: We reviewed the CT scan in detail today on the computer monitor with a Urology attending who happened to be in the area, but is not specifically consulted on this case. The kidney appears entirely free of infection. The fluid collection is actually attached to the bottom of the liver, and extends inferiorly from there. The fluid collection is completely from the kidney by a nice layer of fat, and we see no evidence that this is a perinephric abscess or fluid collection. It rather appears to be a perihepatic fluid collection of unknown etiology. IMPRESSION: I am less and less convinced that this patient has any infection. The fluid aspirated yesterday seems quite bland, and there is no evidence by fever curve, white count, procalcitonin, or CRP that this patient has any raging infection. The urine and blood cultures remain sterile as well. RECOMMENDATIONS: 1. Will continue with broad-spectrum antibiotics for one more day, but if we do not have any positive cultures from the aspirate, I think we can start to think about stopping antibiotics. 2. I have communicated with Dr. Del Valle, who is of course quite concerned about the possibility of systemic infection and infection of the pacer, and I have reassured him that, at this point, we have no evidence for systemic infection.
--- NOTE | 2016-09-03 13:27 | NUR ---
Pain Pt states pain in chest and back. Pt using call light to call for pain medications Q4. Repositioning patient as tolerated. Pt cooperative with care. MD aware. Care continues.
--- NOTE | 2016-09-03 15:43 | PCM.PNMED ---
Subjective Date of Service Sep 03, 2016 Subjective Overnight: no acute event. Patient complained of abdominal and back pain after the needle aspiration. Reported effective pain relief with Morphine. Today, patient complains of bilateral lower abdominal pain and back pain at the site of needle aspiration, but otherwise is feeling fine. She denies any fever, chills, nausea, or vomiting. Exam Vital Signs Vital Sign - Last Date Time Temp Pulse Resp B/P Pulse Ox O2 Delivery O2 Flow Rate FiO2 09/03/16 03:41 36.6 97 20 105/65 100 Room Air Intake and Output 09/02/16 09/02/16 09/03/16 Cumulative From/Thru 15:00 23:00 07:00 09/02/16 00:15 - 09/03/16 06:17 Intake Total 1386 ml 1731 ml 3117 ml Output Total 2300 ml 800 ml 3100 ml Balance -914 ml 931 ml 17 ml Intake Oral 0 ml 1200 ml 1200 ml IV Total 1386 ml 531 ml 1917 ml Output Urine Total 2300 ml 800 ml 3100 ml # Bowel Movements 0 0 Exam General: Obese female alert and oriented 3, in no apparent distress, laying comfortably in bed. HEENT: NCAT, PERRLA, EOMI, neck, soft supple, no adenopathy, mucous membranes pink and moist. Lungs: CTAB all h[place], no wheezes, no rhonchi, no crackles, no use of accessory muscles of respiration, good air movement, good respiratory effort. Heart: Mild tachycardic with regular rhythm, no murmur. Right pacemaker in place , mild tender to palpation but no signs of infection. Abdomen: Soft, nondistended, mild tenderness to palpation in LLQ and RLQ. No rebound, no guarding. Bowel sounds active. Extremities: pulses equal and symmetric upper/lower extremity including radial and dorsalis pedis, no edema Neurologic: normal speech, no focal neurological signs. IVs and Medications Medications Reviewed: Medications were reviewed in detail Lab and Diagnostics Result Diagram: 09/03/16 0325 09/03/16 032 X-Rays, CTs and MRIs PROCEDURE: CT-GUIDED ASPIRATION OF RENAL/PELVIC CYST IMPRESSION: Successful aspiration of a right perinephric fluid collection. 6 cc of aspirated fluid was sent to the lab for further evaluation. Dictated by: Jovani Choudhary M.D. on 09/02/2016 at 19:17 PROCEDURE: CT ABDOMEN AND PELVIS WITH CONTRAST IMPRESSION: Mild perihepatic free fluid and stranding seen in the right paracolic gutter, technically non-specific. This is grossly unchanged since the prior study dated 06/18/16. No abscess seen Uterine fibroids as before. Dictated by: Олег Ventura M.D. on 09/02/2016 at 19:42 Assessment & Plan 36-year-old female with complicated past medical history who was transferred to [facility] for chest pain and perihepatic fluid collection as evidence to CT scan. # Perihepatic fluid collection in a diabetic Type 1 with Hx of prior Perinephric Abscess, Right, present on admission. - Patient has a history of a right perinephric abscess that led to MSSA bactermia in June 2016. - Her CT abdomen and pelvis from [facility] 09/01/2016 showed a 2X3 cm fluid collection posterior to the margin of the liver. Small amount of free fluid in the pericolic gutter. Repeat CT here showed similar findings and no changes compared to the CT in 06/18/16. - S/p needle aspiration of 6cc fluid aspirated. Gram stain negative. Culture pending. - Will hold Eliquis given possible procedure. Last dose was yesterday morning. - Appreciate Dr. Ambrose's recommendations. Meropenem was initiated on admission. Will continue the antibiotics until clear by ID. Patient does not have any sign or symptoms of systemic infection otherwise. - Lactic acid and procalcitonin are both negative. - Blood and aspirated cultures pending. # DKA, present on admission, resolved. - Patient had BG of 462 and large Ketone on admission. Gap of 21. - Likely due to noncompliance. A1c 11.1. Patient admits that she skipped the morning Lantus dose yesterday because she did not have breakfast. - Gap closed after one dose of NPH 70-30 yesterday. No indication to start insulin drip at this point. - Will resume home dose of Lantus 25 units in the morning and increase to 30 units at night. Patient prefers to stay on the Lantus BID as she has been doing it for most of her life. - Continue high dose correctional scale once she starts eating. - Hold home nutritional Novolog. - We will continue serial blood glucose checks. # Chest pain, rule out acute coronary syndrome, present on admission, resolved. - She had negative troponin at [facility] - EKG [facility] was paced rhythm with a rate of 114. Patient reportedly received Nitropaste [facility] ED which resolved her chest pain. - Repeat troponin here negative. - Continue aspirin 81 mg - Continue morphine 1-2 mg IV PRN - Admitting team briefly discussed case with Dr. Hernandez prior to admission, but will not need cardiology consultation at this point. - Patient on digoxin at home with normal digoxin level 0.1. will resume Digoxin. # Acute bilateral lower quadrant abdominal pain, present on admission, active. - The LLQ could be due to an ovarian cyst as a 3.7x2.8cm fluid density focus within the left adnexa. Will need 6 week pelvic U/S as outpatient. - The cause RLQ pain is unclear in this patient with history of appendectomy, cholecystectomy, and right oophorectomy. Possibly due to the perihepatic fluid collection. Other differential could be gastroenteritis, UTI, DKA, constipation , diverticulitis, or endometriosis. - Will continue to monitor symptoms and signs of infection. Patient reports good pain relief with Morphine IV currently. Will consider oral pain med once she is no longer NPO. Chronic Problems # CAD of a [place] artery - Continue home medications: Lipitor, Lisinopril, and ASA. - Patient is also on Eliquis. Resume today. # Complete heart block 07/18/2016, status post pacemaker placement 2 -Patient was found to be bacteremic after first pacemaker placement, which was removed. The culture of the components of the pacemaker did not grow bacteria. Patient then had new pacemaker replaced. -Echo 06/25/2016: Showed left ventricle normal in size. LVEF of 25-30% estimated. -Patient takes digoxin, digoxin level 0.1 at [facility] and within normal limits and will continue Digoxin. # Systolic CHF, chronic, stable. - Last Echo in June 2016 showed EF to be 25-30% - No signs or symptoms of fluid overload or decompensation. - Hold Lasix 80 mg daily due to low BP. - Continue home spironolactone, Lisinopril, and Metoprolol. # Type I diabetes mellitus with diabetic polyneuropathy, uncontrolled. - We will hold nutritional NovoLog - Lantus and correctional insulin as above. #Generalized anxiety disorder/depression, chronic. - will continue Amitriptyline 25 mg takes 2-4 tablets by mouth at bedtime, Ativan 1 mg QID PRN - We will continue Venlafaxine ER 150 mg daily #Dyslipidemia, chronic. - Continue Atorvastatin 80 mg tablet daily #Lumbar DDD, chronic, presume stable. -Continue Cyclobenzaprine 10 mg tablet, takes 1 tablet by mouth 3 times daily -Hydrocodone 5/325 gram, takes 1 tablet every 4-6 hours when necessary. Will resume this now. # Hypothyroidism with history of Graves' disease - We will continue Levothyroxine 250 g daily. - check TSH and T4. # Mitral valve insufficiency # History of Acute bacterial endocarditis 05/06/2016 # History of Pericarditis # History of MSSA staph aureus bacteremia 06/12/2016 #Obesity # GERD - Continue Pantoprazole 40 mg 2 times daily Disposition: Admitted to in patient service with expected length of stay greater than 2 days, secondary to severity of presenting symptoms, treatment plan, complexity of clinical work up, and risk of adverse events. CODE STATUS: Full code PCP: Arielle Aguilar D.O Patient is seen by inspector structural bonding Dr. Del Valle DVT PE prophylaxis: SCD's Contact: Father Eddi Mother Varsha [phone] Pain Evaluation: Adequate Pain Control GI Prophylaxis: Proton Pump Inhibitor VTE Prophylaxis: Sub-Q Heparin (Unfractionated), SCDs Resuscitation Status: CPR: Attempt Resuscitation Attending Statement Patient seen and examined with house staff. Agree with all attached documentation. Tanmay Logan DO Sep 03, 2016 07:14 Gonzalez Arreaga MD Sep 03, 2016 16:52 Pain Evaluation: Adequate Pain Control GI Prophylaxis: Proton Pump Inhibitor VTE Prophylaxis: Sub-Q Heparin (Unfractionated), SCDs Resuscitation Status: CPR: Attempt Resuscitation Tanmay Logan DO Sep 03, 2016 07:14
[2016-09-03] MEDS: HYDROcodone-APAP 5-325 mg Tablet PO PRN ×2 (18:05→22:22)
[2016-09-03] MEDS ORDERED: Insulin GLARgine 100 Unit/mL Syringe SUBQ SCH (21:00)
[2016-09-04] VITALS (7 sets, daily range): BP systolic 96–117; BP diastolic 65–81; PULSE 87–96; RESP 12–20; O2SAT 96–100
[2016-09-04] MEDS: Meropenem Inj 1,000 MG in 0.9% Sodium Chloride 100 ML IV SCH ×3 (03:21→19:46)
[2016-09-04] MEDS: HYDROcodone-APAP 5-325 mg Tablet PO PRN ×2 (03:23→08:42)
[2016-09-04 04:41] LABS: BASOPHILS % (AUTO) 0.5 % (0-3); EOSINOPHILS % (AUTO) 1.1 % (0-5); MONOCYTES % (AUTO) 9.5 % (4-12); Mean Corpuscular Hemoglobin 28.2 pg (27.0-35.0); Mean Corpuscular Volume 90.8 fL (81-100); NEUTROPHILS % (AUTO) 60.9 % (40-74); Platelet Count 234 bil/L (150-400)
[2016-09-04 05:15] LABS: Magnesium 1.9 mg/dL (1.6-2.6)
--- NOTE | 2016-09-04 05:39 | NUR ---
hygiene pt with body order, offered bath multiple times pt refusing, did allow staff to change her gown that had food on it but no other hygiene care.
[2016-09-04] MEDS: Insulin LISPRO High-Dose Scale SUBQ SCH ×4 (07:30→21:23)
[2016-09-04] MEDS: Venlafaxine XR 75 mg ER24 Capsule PO SCH (08:42)
[2016-09-04] MEDS: Pantoprazole 40 mg ER24 Tablet PO SCH ×2 (08:42→17:09)
[2016-09-04] MEDS: MeTOProlol XL 50 mg ER24 Tablet PO SCH ×2 (08:44→20:47)
[2016-09-04] MEDS: Sodium Chloride LOK Flush 10 mL Syringe IVFLUSH SCH ×3 (08:47→16:30)
[2016-09-04] MEDS: Insulin GLARgine 100 Unit/mL Syringe SUBQ SCH ×2 (08:47→21:20)
--- NOTE | 2016-09-04 09:31 | PROG NOTE ---
[address] [address] PROGRESS NOTE PATIENT: KAYLEE TURNER : 1980 MR#: [id number] ADMIT: 09/02/2016 JOB ID: [id number] DATE: 09/04/2016 INFECTIOUS DISEASE FOLLOW UP NOTE: REASON FOR FOLLOWUP: Possible infrahepatic infection. INTERVAL HISTORY: Overnight, the patient has had some sweats but no fevers or chills. She denies any significant shortness of breath or cough but she continues to have rather diffuse abdominal pain, which she notes both in the right upper quadrant as well as diffusely on the left side. No nausea or vomiting. No skin rash noted. PHYSICAL EXAMINATION: Reveals an afebrile woman. Temperature 36.7, pulse 91, respiratory rate 18, blood pressure 108/74. She is saturating well on room air. No acute distress. Awake and alert. Oral cavity negative. Lungs clear. Cardiac tones without new murmur. Abdomen with mild right upper quadrant and left lower quadrant tenderness. No peritoneal signs. No guarding. No skin rash noted. LABORATORIES: Include white count 5600, hematocrit 37, normal differential. Creatinine 0.51. Urinalysis without white cells. The culture from the aspirate done on the 3rd remains negative. I had asked the advertising dispatch clerks supervisor at [facility] to call me if any of the mini blood cultures done at [facility] on the 2nd turn positive and so far I have not heard from them and I plan to contact them again tomorrow to make absolutely certain. Our blood cultures done on the 3rd are negative. IMAGING: Recall that the abdominal CT which we reviewed carefully yesterday shows some fluid extending into the right pericolic gutter from the infrahepatic area. This was sampled by our needle aspiration. IMPRESSION: This is an incredibly complex case of a woman with a Staph aureus bacteremia from a right perinephric abscess earlier this year which complicated an attempt to place and maintain a cardiac pacer. The pacer was eventually explanted and then another pacer reimplanted. At this point, I do not see evidence of a recurrent bacteremic infection nor does it appear this intrahepatic fluid collection is infected, but I think given the complex nature of this case including a very poorly controlled diabetes, it is reasonable to keep her here one more day while we observe. RECOMMENDATIONS: 1. I would keep the patient here one more day and then if the cultures from the infrahepatic aspirate are negative and the blood cultures from [facility] are final and negative, she can be discharged without antibiotics. 2. It may be worth showing the CAT scan to one of our general surgeons just to make sure they do not have any concerns about the nature of these fluid collections as I am not certain what they represent in this patient with rather labile type 1 diabetes, and a history of Staph perinephric abscess a couple months ago. Note that our urologist who was kind enough to review the films with us felt there was no hint of recurrent perinephric abscess in any event.
--- NOTE | 2016-09-04 15:44 | NUR ---
Transfer P[facility] to [facility] Report given to Rai ELIZABETH [facility]. VSS, IV Meropenem 33.33 mLs/hr. Pt bathed and aware of transfer. Care continues.
--- NOTE | 2016-09-04 16:18 | PCM.PNMED ---
Subjective Date of Service Sep 04, 2016 Subjective Overnight, no acute event. Today, patient complains of left-sided chest pain that is throbbing and achy. She continues to have bilateral lower quadrant abdominal pain and also left shoulder pain. She states that the Morphine IV works well for her. She reports significant improvement of the CP on Morphine. The Vicodin does not work for her. She took it at the last hospital visit and did not help with her pain. She is willing to try oral Morphine. Exam Vital Signs Vital Sign - Last Date Time Temp Pulse Resp B/P Pulse Ox O2 Delivery O2 Flow Rate FiO2 09/04/16 08:37 36.7 91 18 108/74 99 Room Air Intake and Output 09/03/16 09/03/16 09/04/16 Cumulative From/Thru 15:00 23:00 07:00 09/02/16 00:15 - 09/04/16 06:14 Intake Total 1040 ml 1060 ml 5217 ml Output Total 1000 ml 1200 ml 5300 ml Balance 40 ml -140 ml -83 ml Intake Oral 1040 ml 820 ml 3060 ml IV Total 240 ml 2157 ml Output Urine Total 1000 ml 1200 ml 5300 ml # Bowel Movements 0 Exam General: Obese female alert and oriented 3, in no apparent distress, sitting on a chair. HEENT: NCAT, PERRLA, EOMI, neck, soft supple, no adenopathy, mucous membranes pink and moist. Lungs: CTAB all h[place], no wheezes, no rhonchi, no crackles, no use of accessory muscles of respiration. Heart: Regular rate and rhythm, no murmur. Right pacemaker in place, mild tender to palpation but no signs of infection. Abdomen: Soft, nondistended, mild tenderness to palpation in LLQ and RLQ. No rebound, no guarding. Bowel sounds active. Extremities: pulses equal and symmetric upper/lower extremity including radial and dorsalis pedis, no edema Neurologic: normal speech, no focal neurological signs. Psych: normal mood and affect, poor judgement and insight. IVs and Medications Medications Reviewed: Medications were reviewed in detail Lab and Diagnostics Result Diagram: 09/04/1641409/04/16414 X-Rays, CTs and MRIs PROCEDURE: CT-GUIDED ASPIRATION OF RENAL/PELVIC CYST IMPRESSION: Successful aspiration of a right perinephric fluid collection. 6 cc of aspirated fluid was sent to the lab for further evaluation. Dictated by: Jovani Choudhary M.D. on 09/02/2016 at 19:17 PROCEDURE: CT ABDOMEN AND PELVIS WITH CONTRAST IMPRESSION: Mild perihepatic free fluid and stranding seen in the right paracolic gutter, technically non-specific. This is grossly unchanged since the prior study dated 06/18/16. No abscess seen Uterine fibroids as before. Dictated by: Олег Ventura M.D. on 09/02/2016 at 19:42 Assessment & Plan 36-year-old female with complicated past medical history who was transferred to [facility] for chest pain and perihepatic fluid collection as evidence to CT scan. # Perihepatic fluid collection in a diabetic Type 1 with Hx of prior Perinephric Abscess, Right, present on admission. - Patient has a history of a right perinephric abscess that led to MSSA bactermia in June 2016. - Her CT abdomen and pelvis from [facility] 09/01/2016 showed a 2X3 cm fluid collection posterior to the margin of the liver. Small amount of free fluid in the pericolic gutter. Repeat CT here showed similar findings and no changes compared to the CT in 06/18/16. - S/p needle aspiration of 6cc fluid aspirated. Gram stain negative. Culture pending. - Appreciate Dr. Ambrose's recommendations. Meropenem was initiated on admission. Will likely continue the antibiotics until tomorrow per ID. Patient does not have any sign or symptoms of systemic infection otherwise. - We reviewed the CT with Dr. Gandhi, who thought that there is no hint of recurrent perinephric abscess in any event. Per Dr. Ambrose's recommendation, I contacted general surgery (Dr. Amadeo Cormier) to help review the CT. Dr. Cormier does not believe that the perihepatic fluid collection is significant and does not recommend surgery. - Lactic acid and procalcitonin are both negative. - Blood and aspirated cultures pending. # DKA, present on admission, resolved. - Patient had BG of 462 and large Ketone, gap of 21 on admission. - Likely due to noncompliance. A1c 11.1. Patient admits that she skipped the morning Lantus dose prior to arrival because she did not have breakfast. - Gap closed after one dose of NPH 70-30. No indication to start insulin drip at this point. - Will resume home dose of Lantus 25 units in the morning and increase to 30 units at night. Patient prefers to stay on the Lantus BID as she has been doing it for most of her life. - Continue high dose correctional scale. - Hold home nutritional Novolog. - We will continue serial blood glucose checks. # Chest pain, ruled out acute coronary syndrome, present on admission, resolved. - Unlikely due to cardiac etiology. Will D/C Tele. - EKG [facility] was paced rhythm with a rate of 114. Patient reportedly received Nitropaste [facility] ED which resolved her chest pain. - Negative troponin here negative. - Continue aspirin 81 mg - D/C morphine 1-2 mg IV PRN and start Morphine 15mg PO Q4H PRN. - Admitting team briefly discussed case with Dr. Hernandez prior to admission, but will not need cardiology consultation at this point. - Patient on digoxin at home with normal digoxin level 0.1. will resume Digoxin. # Acute bilateral lower quadrant abdominal pain, present on admission, active. - The LLQ could be due to an ovarian cyst as a 3.7x2.8cm fluid density focus within the left adnexa. Will need 6 week pelvic U/S as outpatient. - The cause RLQ pain is unclear in this patient with history of appendectomy, cholecystectomy, and right oophorectomy. Possibly due to the perihepatic fluid collection. Other differential could be gastroenteritis, UTI, DKA, constipation , diverticulitis, or endometriosis. - Will continue to monitor symptoms and signs of infection. Patient reports good pain relief with Morphine IV currently. Will change to oral Morphine as above. - EVENT MARKETING COORDINATOR check revealed last prescription was for Vicodin on June as the patient stated. Chronic Problems # CAD of a [place] artery - Continue home medications: Lipitor, Lisinopril, and ASA. - Patient is also on Eliquis. Resume today. # Complete heart block 07/18/2016, status post pacemaker placement 2 -Patient was found to be bacteremic after first pacemaker placement, which was removed. The culture of the components of the pacemaker did not grow bacteria. Patient then had new pacemaker replaced. -Echo 06/25/2016: Showed left ventricle normal in size. LVEF of 25-30% estimated. -Patient takes digoxin, digoxin level 0.1 at [facility] and within normal limits and will continue Digoxin. # Systolic CHF, chronic, stable. - Last Echo in June 2016 showed EF to be 25-30% - No signs or symptoms of fluid overload or decompensation. - Hold Lasix 80 mg daily due to low BP. - Continue home spironolactone, Lisinopril, and Metoprolol. # Type I diabetes mellitus with diabetic polyneuropathy, uncontrolled. - Labile BG, ranging from 75 to over 400. - We will hold nutritional NovoLog - Lantus and correctional insulin as above. #Generalized anxiety disorder/depression, chronic. - will continue Amitriptyline 25 mg takes 2-4 tablets by mouth at bedtime, Ativan 1 mg QID PRN - We will continue Venlafaxine ER 150 mg daily #Dyslipidemia, chronic. - Continue Atorvastatin 80 mg tablet daily #Lumbar DDD, chronic, presume stable. -Continue Cyclobenzaprine 10 mg tablet, takes 1 tablet by mouth 3 times daily -Hydrocodone 5/325 gram, takes 1 tablet every 4-6 hours when necessary. Will resume this now. Last prescription was in June 2016. # Hypothyroidism with history of Graves' disease - We will continue Levothyroxine 250 g daily. - TSH slightly elevated. Defer adjustment of her Levothyroxine to outpatient. # Mitral valve insufficiency # History of Acute bacterial endocarditis 05/06/2016 # History of Pericarditis # History of MSSA staph aureus bacteremia 06/12/2016 #Obesity # GERD - Continue Pantoprazole 40 mg 2 times daily Disposition: Admitted to in patient service with expected length of stay greater than 2 days, secondary to severity of presenting symptoms, treatment plan, complexity of clinical work up, and risk of adverse events. CODE STATUS: Full code PCP: Arielle Aguilar D.O Patient is seen by security administrator Dr. Del Valle DVT PE prophylaxis: SCD's Contact: Father Eddi [phone] Mother Varsha [phone] Pain Evaluation: Adequate Pain Control GI Prophylaxis: Proton Pump Inhibitor VTE Prophylaxis: Sub-Q Heparin (Unfractionated), SCDs Resuscitation Status: CPR: Attempt Resuscitation Attending Statement The patient was seen and examined with staff. Agree with all attached documentation. Tanmay Logan DO Sep 04, 2016 09:57 Gonzalez Arreaga MD Sep 05, 2016 10:56
--- NOTE | 2016-09-04 18:19 | NUR ---
Transfer Handoff provided by Ezekiel Gamez RN. Pt stable on transfer at 1620. Oriented to room. IV fluids TKO. Dinner ordered. Plan on whiteboard. Will continue to monitor.
[2016-09-05] MEDS: Sodium Chloride LOK Flush 10 mL Syringe IVFLUSH SCH ×4 (00:44→23:58)
[2016-09-05] MEDS: LORazepam 1 mg Tablet PO PRN ×2 (01:46→21:53)
[2016-09-05 02:00] VITALS: BP 121/77; PULSE 88; RESP 16; O2SAT 99
[2016-09-05] MEDS: Meropenem Inj 1,000 MG in 0.9% Sodium Chloride 100 ML IV SCH (03:43)
--- NOTE | 2016-09-05 05:36 | NUR ---
Pain Pt. c/o of 7/10 lower abd and right lower back pain, administered prn morphine with good effect, VSS afebrile, hourly rounds, call light in reach at all times, will continue to monitor.
[2016-09-05 06:12] VITALS: BP 99/70; PULSE 86; RESP 17; O2SAT 100
[2016-09-05] MEDS: Pantoprazole 40 mg ER24 Tablet PO SCH ×2 (07:25→17:53)
[2016-09-05] MEDS: Venlafaxine XR 75 mg ER24 Capsule PO SCH (07:32)
[2016-09-05] MEDS: Insulin GLARgine 100 Unit/mL Syringe SUBQ SCH ×2 (07:39→21:38)
[2016-09-05] MEDS: Insulin LISPRO High-Dose Scale SUBQ SCH ×4 (07:39→21:38)
--- NOTE | 2016-09-05 08:07 | PCM.PNMED ---
Subjective Date of Service Sep 05, 2016 Subjective Has been having bilat lower abd and right lower back pain which is well controlled with oral morphine. Denies any SOB. +BM. Exam Vital Signs Vital Sign - Last Date Time Temp Pulse Resp B/P Pulse Ox O2 Delivery O2 Flow Rate FiO2 09/05/16 06:12 36.6 86 17 99/70 100 Room Air Intake and Output 09/04/16 09/04/16 09/05/16 Cumulative From/Thru 15:00 23:00 07:00 09/02/16 00:15 - 09/05/16 06:12 Intake Total 361 ml 840 ml 6418 ml Output Total 450 ml 5750 ml Balance 361 ml 390 ml 668 ml Intake Oral 237 ml 640 ml 3937 ml IV Total 124 ml 200 ml 2481 ml Output Urine Total 450 ml 5750 ml # Bowel Movements 1 1 Exam General: Obese female alert and oriented 3, in no apparent distress, sitting on a chair. HEENT: NCAT, PERRLA, EOMI, neck, soft supple, no adenopathy, mucous membranes pink and moist. Lungs: CTAB all harrison, no wheezes, no rhonchi, no crackles, no use of accessory muscles of respiration. Heart: Regular rate and rhythm, no murmur. Right pacemaker in place, mild tender to palpation but no signs of infection. Abdomen: Soft, nondistended, mild tenderness to palpation in LLQ and RLQ. No rebound, no guarding. Bowel sounds active. Extremities: pulses equal and symmetric upper/lower extremity including radial and dorsalis pedis, no edema Neurologic: normal speech, no focal neurological signs. Psych: normal mood and affect, poor judgement and insight. IVs and Medications Medications Reviewed: Medications were reviewed in detail Lab and Diagnostics Result Diagram: 09/04/16 0415 09/04/16 0415 X-Rays, CTs and MRIs PROCEDURE: CT-GUIDED ASPIRATION OF RENAL/PELVIC CYST IMPRESSION: Successful aspiration of a right perinephric fluid collection. 6 cc of aspirated fluid was sent to the lab for further evaluation. Dictated by: Jovani Choudhary M.D. on 09/02/2016 at 19:17 PROCEDURE: CT ABDOMEN AND PELVIS WITH CONTRAST IMPRESSION: Mild perihepatic free fluid and stranding seen in the right paracolic gutter, technically non-specific. This is grossly unchanged since the prior study dated 06/18/16. No abscess seen Uterine fibroids as before. Dictated by: Олег Ventura M.D. on 09/02/2016 at 19:42 Assessment & Plan 36-year-old female with complicated past medical history who was transferred to [facility] for chest pain and perihepatic fluid collection as evidence to CT scan. # Perihepatic fluid collection in a diabetic Type 1 with Hx of prior Perinephric Abscess, Right, present on admission. - Patient has a history of a right perinephric abscess that led to MSSA bactermia in June 2016. - Her CT abdomen and pelvis from [place] 09/01/2016 showed a 2X3 cm fluid collection posterior to the margin of the liver. Small amount of free fluid in the pericolic gutter. Repeat CT here showed similar findings and no changes compared to the CT in 06/18/16. - S/p needle aspiration of 6cc fluid aspirated. Gram stain negative. Culture pending. - Appreciate Dr. Ambrose's recommendations. Meropenem was initiated on admission. Will likely continue the antibiotics until tomorrow per ID. Patient does not have any sign or symptoms of systemic infection otherwise. - We reviewed the CT with Dr. Gandhi, who thought that there is no hint of recurrent perinephric abscess in any event. Per Dr. Ambrose's recommendation, I contacted general surgery (Dr. Amadeo Cormier) to help review the CT. Dr. Cormier does not believe that the perihepatic fluid collection is significant and does not recommend surgery. - Lactic acid and procalcitonin are both negative. - Blood and aspirated cultures NGTD. - ID Recs- okay for discharge given cultures infrahepatic aspirate are negative and the blood cultures from [place] are final and negative, she can be discharged without antibiotics. # DKA, present on admission, resolved. - Patient had BG of 462 and large Ketone, gap of 21 on admission. - Likely due to noncompliance. A1c 11.1. Patient admits that she skipped the morning Lantus dose prior to arrival because she did not have breakfast. - Gap closed after one dose of NPH 70-30. No indication to start insulin drip at this point. - Will resume home dose of Lantus 25 units in the morning and increase to 30 units at night. Patient prefers to stay on the Lantus BID as she has been doing it for most of her life. - Continue high dose correctional scale. - Hold home nutritional Novolog. - We will continue serial blood glucose checks. # Chest pain, ruled out acute coronary syndrome, present on admission, resolved. - Unlikely due to cardiac etiology. Will D/C Tele. - EKG Zac was paced rhythm with a rate of 114. Patient reportedly received Nitropaste [facility] ED which resolved her chest pain. - Negative troponin here negative. - Continue aspirin 81 mg - D/C morphine 1-2 mg IV PRN and start Morphine 15mg PO Q4H PRN. - Admitting team briefly discussed case with Dr. Hernandez prior to admission, but will not need cardiology consultation at this point. - Patient on digoxin at home with normal digoxin level 0.1. will resume Digoxin. # Acute bilateral lower quadrant abdominal pain, present on admission, active. - The LLQ could be due to an ovarian cyst as a 3.7x2.8cm fluid density focus within the left adnexa. Will need 6 week pelvic U/S as outpatient. - The cause RLQ pain is unclear in this patient with history of appendectomy, cholecystectomy, and right oophorectomy. Possibly due to the perihepatic fluid collection. Other differential could be gastroenteritis, UTI, DKA, constipation , diverticulitis, or endometriosis. - Will continue to monitor symptoms and signs of infection. Patient reports good pain relief with Morphine IV currently. Will change to oral Morphine as above. - GRADING SUPERVISOR check revealed last prescription was for Vicodin on June as the patient stated. Chronic Problems # CAD of a [place] artery - Continue home medications: Lipitor, Lisinopril, and ASA. - Patient is also on Eliquis. Resume today. # Complete heart block 07/18/2016, status post pacemaker placement 2 -Patient was found to be bacteremic after first pacemaker placement, which was removed. The culture of the components of the pacemaker did not grow bacteria. Patient then had new pacemaker replaced. -Echo 06/25/2016: Showed left ventricle normal in size. LVEF of 25-30% estimated. -Patient takes digoxin, digoxin level 0.1 at [facility] and within normal limits and will continue Digoxin. # Systolic CHF, chronic, stable. - Last Echo in June 2016 showed EF to be 25-30% - No signs or symptoms of fluid overload or decompensation. - Hold Lasix 80 mg daily due to low BP. - Continue home spironolactone, Lisinopril, and Metoprolol. # Type I diabetes mellitus with diabetic polyneuropathy, uncontrolled. - Labile BG, ranging from 75 to over 400. - We will hold nutritional NovoLog - Lantus and correctional insulin as above. #Generalized anxiety disorder/depression, chronic. - will continue Amitriptyline 25 mg takes 2-4 tablets by mouth at bedtime, Ativan 1 mg QID PRN - We will continue Venlafaxine ER 150 mg daily #Dyslipidemia, chronic. - Continue Atorvastatin 80 mg tablet daily #Lumbar DDD, chronic, presume stable. -Continue Cyclobenzaprine 10 mg tablet, takes 1 tablet by mouth 3 times daily -Hydrocodone 5/325 gram, takes 1 tablet every 4-6 hours when necessary. Will resume this now. Last prescription was in June 2016. # Hypothyroidism with history of Graves' disease - We will continue Levothyroxine 250 g daily. - TSH slightly elevated. Defer adjustment of her Levothyroxine to outpatient. # Mitral valve insufficiency # History of Acute bacterial endocarditis 05/06/2016 # History of Pericarditis # History of MSSA staph aureus bacteremia 06/12/2016 #Obesity # GERD - Continue Pantoprazole 40 mg 2 times daily Disposition: Admitted to in patient service with expected length of stay greater than 2 days, secondary to severity of presenting symptoms, treatment plan, complexity of clinical work up, and risk of adverse events. - Will dispo in AM as pt still c/o of abd pain. - Per Radiology, patient does not need repeat imaging unless becomes symptomatic again. - Follow up with PCP in 1 week. - No antibiotics upon discharge per Infectious Disease. CODE STATUS: Full code PCP: Arielle Aguilar D.O Patient is seen by poultry scientist Dr. Del Valle DVT PE prophylaxis: SCD's Contact: Father Eddi [phone] Mother Varsha [phone] GI Prophylaxis: Proton Pump Inhibitor VTE Prophylaxis: Sub-Q Heparin (Unfractionated), SCDs Resuscitation Status: CPR: Attempt Resuscitation Marcelo De La Torre MD Sep 05, 2016 08:07
[2016-09-05] MEDS: MeTOProlol XL 50 mg ER24 Tablet PO SCH ×2 (08:30→20:07)
[2016-09-05 09:00] VITALS: BP 96/73; PULSE 91; RESP 16; O2SAT 98
--- NOTE | 2016-09-05 11:24 | NUR ---
Social Work: Readiness for d/c Data: Pt is on day 3 of hospitalization. EMR reviewed. MD states pt likely to d/c tomorrow with no IVABX need. No d/c planning needs at this time. POT PRESS OPERATOR will continue to follow if needs arise. Assessment: Pt who is independent at baseline. Plan: Pt will d/c home via POV when medically stable, likely tomorrow per MD. No d/c planning needs at this time. POT PRESS OPERATOR will continue to follow if needs arise. DAYLIN Coy
[2016-09-05 12:37] VITALS: BP 104/74; PULSE 88; RESP 14; O2SAT 97
--- NOTE | 2016-09-05 12:44 | PROG NOTE ---
[address] [address] PROGRESS NOTE PATIENT: KAYLEE TURNER : 1980 MR#: [id number] ADMIT: 09/02/2016 JOB ID: [id number] DATE: 09/05/2016 INFECTIOUS DISEASE FOLLOWUP NOTE: REASON FOR FOLLOWUP: Complex patient with infrahepatic fluid collection and abdominal pain. INTERVAL HISTORY: Overnight the patient reports she continues to have left lower quadrant pain as well as right upper quadrant pain. These have not really diminished since admission. She has no fevers, no chills, no sweats. No cough or chest pain. No problems with her indwelling pacer. No nausea, no vomiting. PHYSICAL EXAMINATION: Reveals an afebrile woman. She has been afebrile since her admission now three days ago. Temperature 36.6, pulse 91, respiratory rate 16, blood pressure 96/73. She is saturating well on room air. Examination of the mental status reveals it to be clear. Oral cavity negative. Lungs clear. Cardiac tones regular rate and rhythm without new murmur. The pacer in the right upper chest is nontender. The abdomen is soft and without organomegaly, but there is some tenderness with moderate palpation in the left lower quadrant, and only with deep palpation in the right upper quadrant. No skin rash. LABORATORIES: Include white count consistently normal now 5600, normal diff. Creatinine 0.51. LFTs normal except for alk phos 173. Albumin 3. Procalcitonin less than 0.1. Urinalysis without white cells. Micro studies include negative blood cultures here and a negative aspirate of the infrahepatic fluid collection. Recall that this was done on September 03 and at 48 hours there are no organisms growing from this fluid collection. I called [facility] and after considerable time on the phone was able discover that the blood cultures they had drawn there the day prior to transfer here were also completely negative. IMPRESSION: We have no evidence for recrudescent bacteremia or pacer infection in this woman. The nature of the fluid collection at the inferior aspect of the liver remains unclear. This definitely does not be appear to be a perinephric abscess or fluid collection and we reviewed these films previously with Urology. General Surgery has also reviewed these films and they do not think this is consistent with an abscess, nor that it needs additional drainage or surgical intervention. The nature of this fluid remains unclear, but it certainly does not appear to represent abscess or infection. RECOMMENDATIONS: 1. We can discontinue antibiotics as of today. 2. From the ID perspective, the patient can be discharged at any time without concern for infection. 3. Additional imaging to make sure that fluid collection is resolving is probably indicated, though the exact timing of such a scan is unclear to me at this point, and perhaps General Surgery or Radiology would be of value in trying to decide the timeframe. 4. ID will go ahead and sign off on this case. Please do not hesitate to call if there are additional issues or questions. Thank you very much.
--- NOTE | 2016-09-05 15:20 | NUR ---
No IV access Pts. IV became infiltrated this morning around 1000. IV dc'd intact and MD notified. ok with no IV access, as IV antibiotics will be discontinued. Heat pack applied to infiltration site and Pts. states the mild pain is resolving.
[2016-09-05 19:59] VITALS: BP 110/76; PULSE 104; RESP 18; O2SAT 99
[2016-09-06 02:28] VITALS: BP 114/81; PULSE 98; RESP 18; O2SAT 99
[2016-09-06 06:24] VITALS: BP 94/69; PULSE 93; RESP 16; O2SAT 99
--- NOTE | 2016-09-06 06:28 | NUR ---
Pain Pt complains of 6-7/10 pain approximately Q4H. PO pain management works well (pain reduced to 2/10). Pt still has some lingering pain where IV infiltrated. Used hot pack with good effect.
[2016-09-06] MEDS: Insulin LISPRO High-Dose Scale SUBQ SCH ×2 (07:30→11:30)
[2016-09-06] MEDS: Sodium Chloride LOK Flush 10 mL Syringe IVFLUSH SCH (08:30)
[2016-09-06 08:35] VITALS: BP 116/78; PULSE 94; RESP 14; O2SAT 100
[2016-09-06] MEDS: Pantoprazole 40 mg ER24 Tablet PO SCH (08:35)
[2016-09-06] MEDS: MeTOProlol XL 50 mg ER24 Tablet PO SCH (08:35)
[2016-09-06] MEDS: Venlafaxine XR 75 mg ER24 Capsule PO SCH (08:36)
[2016-09-06] MEDS: Insulin GLARgine 100 Unit/mL Syringe SUBQ SCH (10:15)
--- NOTE | 2016-09-06 10:46 | NUR ---
Blood Sugar 0810 blood sugar was 56. Pt alert and oriented. Able to take OJ and [place]. Rechecked 0825= 65 0840=57 0855=66 0915=67 0940=80 [id number]. Pt given patricia @ 1015. MD aware. Pt eating breakfast at 0855. Care tanner Addendum: 09/06/16 at 1050 by BERAT NEUMANN RN Offered to help get pt cleaned up for the day and change bed. Pt states "Im going home today so I don't really want to." Calin hart
--- NOTE | 2016-09-06 10:54 | PCM.PNMED ---
Subjective Date of Service Sep 06, 2016 Subjective Pt reports improved abd pain. She has had BM. Denies fever/chills. Exam Vital Signs Vital Sign - Last Date Time Temp Pulse Resp B/P Pulse Ox O2 Delivery O2 Flow Rate FiO2 09/06/16 08:35 36.8 94 14 116/78 100 Room Air Intake and Output 09/05/16 09/05/16 09/06/16 Cumulative From/Thru 15:00 23:00 07:00 09/02/16 00:15 - 09/06/16 06:24 Intake Total 795 ml 300 ml 7513 ml Output Total 400 ml 6150 ml Balance 395 ml 300 ml 1363 ml Intake Oral 500 ml 300 ml 4737 ml IV Total 295 ml 2776 ml Output Urine Total 400 ml 6150 ml # Voids 3 1 4 # Bowel Movements 1 Exam General: Obese female alert and oriented 3, in no apparent distress, sitting on a chair. HEENT: NCAT, PERRLA, EOMI, neck, soft supple, no adenopathy, mucous membranes pink and moist. Lungs: CTAB all harrison, no wheezes, no rhonchi, no crackles, no use of accessory muscles of respiration. Heart: Regular rate and rhythm, no murmur. Right pacemaker in place, mild tender to palpation but no signs of infection. Abdomen: Soft, nondistended, mild tenderness to palpation in LLQ and RLQ. No rebound, no guarding. Bowel sounds active. Extremities: pulses equal and symmetric upper/lower extremity including radial and dorsalis pedis, no edema Neurologic: normal speech, no focal neurological signs. Psych: normal mood and affect, poor judgement and insight. Lab and Diagnostics Result Diagram: 09/04/16 0415 09/04/16 0415 X-Rays, CTs and MRIs PROCEDURE: CT-GUIDED ASPIRATION OF RENAL/PELVIC CYST IMPRESSION: Successful aspiration of a right perinephric fluid collection. 6 cc of aspirated fluid was sent to the lab for further evaluation. Dictated by: Jovani Choudhary M.D. on 09/02/2016 at 19:17 PROCEDURE: CT ABDOMEN AND PELVIS WITH CONTRAST IMPRESSION: Mild perihepatic free fluid and stranding seen in the right paracolic gutter, technically non-specific. This is grossly unchanged since the prior study dated 06/18/16. No abscess seen Uterine fibroids as before. Dictated by: Олег Ventura M.D. on 09/02/2016 at 19:42 Assessment & Plan 36-year-old female with complicated past medical history who was transferred to [facility] for chest pain and perihepatic fluid collection as evidence to CT scan. # Perihepatic fluid collection in a diabetic Type 1 with Hx of prior Perinephric Abscess, Right, present on admission. - Patient has a history of a right perinephric abscess that led to MSSA bactermia in June 2016. - Her CT abdomen and pelvis from [place] 09/01/2016 showed a 2X3 cm fluid collection posterior to the margin of the liver. Small amount of free fluid in the pericolic gutter. Repeat CT here showed similar findings and no changes compared to the CT in 06/18/16. - S/p needle aspiration of 6cc fluid aspirated. Gram stain negative. Culture pending. - Appreciate Dr. Ambrose's recommendations. Meropenem was initiated on admission. Will likely continue the antibiotics until tomorrow per ID. Patient does not have any sign or symptoms of systemic infection otherwise. - We reviewed the CT with Dr. Gandhi, who thought that there is no hint of recurrent perinephric abscess in any event. Per Dr. Ambrose's recommendation, I contacted general surgery (Dr. Amadeo Cormier) to help review the CT. Dr. Cormier does not believe that the perihepatic fluid collection is significant and does not recommend surgery. - Lactic acid and procalcitonin are both negative. - Blood and aspirated cultures NGTD. - ID Recs- okay for discharge given cultures infrahepatic aspirate are negative and the blood cultures from [place] are final and negative, she can be discharged without antibiotics. - Spoke with Radiology, Dr. Obrien. said only need to Repeat CT if having abd pain or other related symptoms again. # DKA, present on admission, resolved. - Patient had BG of 462 and large Ketone, gap of 21 on admission. - Likely due to noncompliance. A1c 11.1. Patient admits that she skipped the morning Lantus dose prior to arrival because she did not have breakfast. - Gap closed after one dose of NPH 70-30. No indication to start insulin drip at this point. - Will resume home dose of Lantus 25 units in the morning and increase to 30 units at night. Patient prefers to stay on the Lantus BID as she has been doing it for most of her life. - Continue high dose correctional scale. - Hold home nutritional Novolog. - Can resume home regimen upon dicharge. #Hx of PE/DVT June 2016, on Eliquis. Will continue. # Chest pain, ruled out acute coronary syndrome, present on admission, resolved. - Unlikely due to cardiac etiology. Will D/C Tele. - EKG [place] was paced rhythm with a rate of 114. Patient reportedly received Nitropaste [facility] ED which resolved her chest pain. - Negative troponin here negative. - Continue aspirin 81 mg - D/C morphine 1-2 mg IV PRN and start Morphine 15mg PO Q4H PRN. - Admitting team briefly discussed case with Dr. Hernandez prior to admission, but will not need cardiology consultation at this point. - Patient on digoxin at home with normal digoxin level 0.1. will resume Digoxin. # Acute bilateral lower quadrant abdominal pain, present on admission, active. - The LLQ could be due to an ovarian cyst as a 3.7x2.8cm fluid density focus within the left adnexa. Will need 6 week pelvic U/S as outpatient. - The cause RLQ pain is unclear in this patient with history of appendectomy, cholecystectomy, and right oophorectomy. Possibly due to the perihepatic fluid collection. Other differential could be gastroenteritis, UTI, DKA, constipation , diverticulitis, or endometriosis. - Will continue to monitor symptoms and signs of infection. Patient reports good pain relief with Morphine IV currently. Will change to oral Morphine as above. - DENTAL SERVICE TECHNICIAN check revealed last prescription was for Vicodin on June as the patient stated. Chronic Problems # CAD of a [place] artery - Continue home medications: Lipitor, Lisinopril, and ASA. - Patient is also on Eliquis. Resume today. # Complete heart block 07/18/2016, status post pacemaker placement 2 -Patient was found to be bacteremic after first pacemaker placement, which was removed. The culture of the components of the pacemaker did not grow bacteria. Patient then had new pacemaker replaced. -Echo 06/25/2016: Showed left ventricle normal in size. LVEF of 25-30% estimated. -Patient takes digoxin, digoxin level 0.1 at [facility] and within normal limits and will continue Digoxin. # Systolic CHF, chronic, stable. - Last Echo in June 2016 showed EF to be 25-30% - No signs or symptoms of fluid overload or decompensation. - Hold Lasix 80 mg daily due to low BP. - Continue home spironolactone, Lisinopril, and Metoprolol. # Type I diabetes mellitus with diabetic polyneuropathy, uncontrolled. - Labile BG, ranging from 75 to over 400. - We will hold nutritional NovoLog - Lantus and correctional insulin as above. #Generalized anxiety disorder/depression, chronic. - will continue Amitriptyline 25 mg takes 2-4 tablets by mouth at bedtime, Ativan 1 mg QID PRN - We will continue Venlafaxine ER 150 mg daily #Dyslipidemia, chronic. - Continue Atorvastatin 80 mg tablet daily #Lumbar DDD, chronic, presume stable. -Continue Cyclobenzaprine 10 mg tablet, takes 1 tablet by mouth 3 times daily -Hydrocodone 5/325 gram, takes 1 tablet every 4-6 hours when necessary. Will resume this now. Last prescription was in June 2016. # Hypothyroidism with history of Graves' disease - We will continue Levothyroxine 250 g daily. - TSH slightly elevated. Defer adjustment of her Levothyroxine to outpatient. # Mitral valve insufficiency # History of Acute bacterial endocarditis 05/06/2016 # History of Pericarditis # History of MSSA staph aureus bacteremia 06/12/2016 #Obesity # GERD - Continue Pantoprazole 40 mg 2 times daily Disposition: Admitted to in patient service with expected length of stay greater than 2 days, secondary to severity of presenting symptoms, treatment plan, complexity of clinical work up, and risk of adverse events. - Will dispo in AM as pt still c/o of abd pain. - Per Radiology, Dr Tse, patient does not need repeat imaging unless becomes symptomatic again. - Follow up with PCP in 1 week. - No antibiotics upon discharge per Infectious Disease. CODE STATUS: Full code PCP: Arielle Aguilar D.O Patient is seen by senior health consultant Dr. Del Valle DVT PE prophylaxis: SCD's Contact: Father Eddi Mother Varsha [phone] GI Prophylaxis: Proton Pump Inhibitor VTE Prophylaxis: Sub-Q Heparin (Unfractionated), SCDs Resuscitation Status: CPR: Attempt Resuscitation Marcelo De La Torre MD Sep 06, 2016 10:54
--- NOTE | 2016-09-06 11:13 | PCM.DIMED ---
Discharge Instructions Date of Service Sep 06, 2016 Dates of Hospitalization Sep 02, 2016 at 00:13 Discharge Diagnosis Discharge Diagnosis # Perihepatic fluid collection in a diabetic Type 1 with Hx of prior Perinephric Abscess, Right, present on admission. # DKA, present on admission, resolved. #Hx of PE/DVT June 2016, on Eliquis. Will continue. # Chest pain, ruled out acute coronary syndrome, present on admission, resolved. # Acute bilateral lower quadrant abdominal pain, present on admission, active. Chronic Problems # Systolic CHF, chronic, stable. # Type I diabetes mellitus with diabetic polyneuropathy, uncontrolled. #Generalized anxiety disorder/depression, chronic. #Dyslipidemia, chronic. #Lumbar DDD, chronic, presume stable. # Hypothyroidism with history of Graves' disease # Mitral valve insufficiency # History of Acute bacterial endocarditis 05/06/2016 # History of Pericarditis # History of MSSA staph aureus bacteremia 06/12/2016 #Obesity # GERD Medication Instructions Additional med instructions - No antibiotics upon discharge as all cultures have been negative. - Will prescribe oral Morphine until you follow up with your doctor. - Continue bowel regimen as long as you are taking pain medications. - Diet Discharge Diet: No restrictions Activity Discharge Activity: No restrictions Call your provider Call your provider for: Fever or Chills, Other (Abominal Pain or distention ) Patient Instructions Patient Instructions - Follow up with PCP in 1 week. - We spoke with Radiology and they feel only need repeat CAT scan imaging if having abdominal pain or other related symptoms again. Follow-up with PCP in: 1 week Marcelo De La Torre MD Sep 06, 2016 11:13
[2016-09-06] MEDS ORDERED: SENN-133 PO (11:19)
[2016-09-06] MEDS ORDERED: POLY17PO6 PO (11:19)
[2016-09-06] MEDS ORDERED: MORP15TA PO (11:19)
--- NOTE | 2016-09-06 11:23 | PCM.DC.MED ---
Discharge Summary Date of Service Sep 06, 2016 Dates of Hospitalization Date of Hospital Admission Sep 02, 2016 at 00:13 Date of Discharge: Sep 06, 2016 Providers: Admitting Physician: Gonzalez Arreaga MD Primary Care Physician: Arielle Aguilar DO Attending Physician: Justin De La Torre MD Diagnosis at Time of Discharge Diagnosis at Time of Discharge # Perihepatic fluid collection in a diabetic Type 1 with Hx of prior Perinephric Abscess, Right, present on admission. # DKA, present on admission, resolved. #Hx of PE/DVT June 2016, on Eliquis. Will continue. # Chest pain, ruled out acute coronary syndrome, present on admission, resolved. # Acute bilateral lower quadrant abdominal pain, present on admission, active. Chronic Problems # Systolic CHF, chronic, stable. # Type I diabetes mellitus with diabetic polyneuropathy, uncontrolled. #Generalized anxiety disorder/depression, chronic. #Dyslipidemia, chronic. #Lumbar DDD, chronic, presume stable. # Hypothyroidism with history of Graves' disease # Mitral valve insufficiency # History of Acute bacterial endocarditis 05/06/2016 # History of Pericarditis # History of MSSA staph aureus bacteremia 06/12/2016 #Obesity # GERD Consultations Infectious Disease- Dr. Ambrose Procedures XRay, CTs & MRIs PROCEDURE: CT-GUIDED ASPIRATION OF RENAL/PELVIC CYST IMPRESSION: Successful aspiration of a right perinephric fluid collection. 6 cc of aspirated fluid was sent to the lab for further evaluation. Dictated by: Jovani Choudhary M.D. on 09/02/2016 at 19:17 PROCEDURE: CT ABDOMEN AND PELVIS WITH CONTRAST IMPRESSION: Mild perihepatic free fluid and stranding seen in the right paracolic gutter, technically non-specific. This is grossly unchanged since the prior study dated 06/18/16. No abscess seen Uterine fibroids as before. Dictated by: Олег Ventura M.D. on 09/02/2016 at 19:42 Brief History Patient is a pleasant 36-year-old female with complicated past medical history includes: Diabetes type 1 with baseline blood glucoses between 200-300, CAD of nikolski artery, paroxysmal SVT status post ablation resulting in complete heart block and status post left pacemaker placement, patient then had MSSA bacteremia with removal of pacemaker in May which was cultured but was negative for growth. Patient then had new pacemaker replaced on the right upper chest. Furthermore in June of this year patient had cardiac cath performed which showed no fixed coronary artery disease. She was diagnosed with stress cardiomyopathy secondary to multiple stressors and which culminated in a diagnosis of CHF. History of right perinephric abscess is May [address], She presents as direct transfer from [facility] with complaint of acute onset 6/10 chest pain lasting 30 minutes, and associated with shortness of breath onset Friday night after having been exerting herself while walking. Patient seen states she has had intermittent chest pains that have lasted up until 4 hours on day of presentation to [facility]. Patient states that she frequently gets these chest pains with exertion. Chest pain was described as a pinpoint burning and throbbing sensation on the left upper chest and shoulder. She then reports around noon on Friday she began to feel generalized weakness and dizziness as well as left lower quadrant abdominal pain that she rated 8 out of 10. This prompted her to go to the hospital ED at [facility] around 3:30 Friday afternoon. Associated symptoms include shortness of breath, generalized weakness, dyspnea on exertion. In complaint of a 4 quadrant pain. Patient further states that she checked her blood glucose earlier in the day and was elevated at 5 89 mg/dL. Patient reportedly took 15 units of NovoLog. Denied fevers, cough, chills, sweats, headaches, nausea, vomiting, diarrhea, constipation. CT abdomen and pelvis on 09/01/2016 at [facility] showed: No evidence of renal abscess, fibroid uterus, there is a 3.7 x 2.8 cm fluid density focus within the left adrenal adnexa which may represent a left ovarian cyst. There is focal fluid measuring approximately 2 x 3 cm at the posterior margin of the liver this could represent exophytic hepatic cyst or small perihepatic fluid collection. There is a small amount of free fluid in the right paracolic gutter. [facility] chemistry panel showed: Sodium 135, glucose 194, potassium 3.6, chloride 100, CO2 23, anion gap 12, BUN 15, creatinine 0.57 ESR 44, alkaline phosphatase 197, albumin 2.6, albumin/globinratio 0.6, Hemogram showed WBC 6.3, H/H 12.5/37.8, MCV 85.7, MCH 28.4, MCHC 33.1 On presentation to [facility]: Vital signs: temperature 37.0, pulse 109, tolerate 20, blood pressure 123/73 with a map of 90, 98% on room air Echo 06/25/2016: Showed left ventricle normal in size. Apical, mid inferior, mid septal and anterior stevenson severely hypokinetic. LVEF of 25-30% estimated. Compared to prior exam left ventricular function is significantly decreased. Right antrochoanal is at upper limits of normal in size, right ventricular systolic function is mildly reduced, no significant valve or heart disease. Patient had CT abdomen with contrast done on 05/28/2016 which showed: Right perinephric kidney abscess just lateral to the inferior pole of the right kidney. There is a tiny residual abscess cavity medial to the drainage catheter measuring 1.0 x 3.0 cm. Appears mild perinephric stranding around the right kidney. 2. Hepatic steatosis. 3. Bilateral effusions. 4. Soft tissue edema in the flanks bilaterally right greater than left. Chest x-ray at [facility] on 7-20 sevenths T and showed no acute cardio pulmonary process. Hospital Course 36-year-old female with complicated past medical history who was transferred to [facility] for chest pain and perihepatic fluid collection as evidence to CT scan. # Perihepatic fluid collection in a diabetic Type 1 with Hx of prior Perinephric Abscess, Right, present on admission. - Patient has a history of a right perinephric abscess that led to MSSA bactermia in June 2016. - Her CT abdomen and pelvis from [place] 09/01/2016 showed a 2X3 cm fluid collection posterior to the margin of the liver. Small amount of free fluid in the pericolic gutter. Repeat CT here showed similar findings and no changes compared to the CT in 06/18/16. - S/p needle aspiration of 6cc fluid aspirated. Gram stain negative. Culture pending. - Appreciate Dr. Ambrose's recommendations. Meropenem was initiated on admission. Will likely continue the antibiotics until tomorrow per ID. Patient does not have any sign or symptoms of systemic infection otherwise. - We reviewed the CT with Dr. Gandhi, who thought that there is no hint of recurrent perinephric abscess in any event. Per Dr. Ambrose's recommendation, I contacted general surgery (Dr. Amadeo Cormier) to help review the CT. Dr. Cormier does not believe that the perihepatic fluid collection is significant and does not recommend surgery. - Lactic acid and procalcitonin are both negative. - Blood and aspirated cultures NGTD. - ID Recs- okay for discharge given cultures infrahepatic aspirate are negative and the blood cultures from [place] are final and negative, she can be discharged without antibiotics. - Spoke with Radiology, Dr. Obrien. said only need to Repeat CT if having abd pain or other related symptoms again. # DKA, present on admission, resolved. - Patient had BG of 462 and large Ketone, gap of 21 on admission. - Likely due to noncompliance. A1c 11.1. Patient admits that she skipped the morning Lantus dose prior to arrival because she did not have breakfast. - Gap closed after one dose of NPH 70-30. No indication to start insulin drip at this point. - Will resume home dose of Lantus 25 units in the morning and increase to 30 units at night. Patient prefers to stay on the Lantus BID as she has been doing it for most of her life. - Continue high dose correctional scale. - Hold home nutritional Novolog. - Can resume home regimen upon dicharge. #Hx of PE/DVT June 2016, on Eliquis. Will continue. # Chest pain, ruled out acute coronary syndrome, present on admission, resolved. - Unlikely due to cardiac etiology. Will D/C Tele. - EKG [place] was paced rhythm with a rate of 114. Patient reportedly received Nitropaste [facility] ED which resolved her chest pain. - Negative troponin here negative. - Continue aspirin 81 mg - D/C morphine 1-2 mg IV PRN and start Morphine 15mg PO Q4H PRN. - Admitting team briefly discussed case with Dr. Hernandez prior to admission, but will not need cardiology consultation at this point. - Patient on digoxin at home with normal digoxin level 0.1. will resume Digoxin. # Acute bilateral lower quadrant abdominal pain, present on admission, active. - The LLQ could be due to an ovarian cyst as a 3.7x2.8cm fluid density focus within the left adnexa. Will need 6 week pelvic U/S as outpatient. - The cause RLQ pain is unclear in this patient with history of appendectomy, cholecystectomy, and right oophorectomy. Possibly due to the perihepatic fluid collection. Other differential could be gastroenteritis, UTI, DKA, constipation , diverticulitis, or endometriosis. - Will continue to monitor symptoms and signs of infection. Patient reports good pain relief with Morphine IV currently. Will change to oral Morphine as above. - [employer] check revealed last prescription was for Vicodin on June as the patient stated. Chronic Problems # CAD of a nikolski artery - Continue home medications: Lipitor, Lisinopril, and ASA. - Patient is also on Eliquis. Resume today. # Complete heart block 07/18/2016, status post pacemaker placement 2 -Patient was found to be bacteremic after first pacemaker placement, which was removed. The culture of the components of the pacemaker did not grow bacteria. Patient then had new pacemaker replaced. -Echo 06/25/2016: Showed left ventricle normal in size. LVEF of 25-30% estimated. -Patient takes digoxin, digoxin level 0.1 at [facility] and within normal limits and will continue Digoxin. # Systolic CHF, chronic, stable. - Last Echo in June 2016 showed EF to be 25-30% - No signs or symptoms of fluid overload or decompensation. - Hold Lasix 80 mg daily due to low BP. - Continue home spironolactone, Lisinopril, and Metoprolol. # Type I diabetes mellitus with diabetic polyneuropathy, uncontrolled. - Labile BG, ranging from 75 to over 400. - We will hold nutritional NovoLog - Lantus and correctional insulin as above. #Generalized anxiety disorder/depression, chronic. - will continue Amitriptyline 25 mg takes 2-4 tablets by mouth at bedtime, Ativan 1 mg QID PRN - We will continue Venlafaxine ER 150 mg daily #Dyslipidemia, chronic. - Continue Atorvastatin 80 mg tablet daily #Lumbar DDD, chronic, presume stable. -Continue Cyclobenzaprine 10 mg tablet, takes 1 tablet by mouth 3 times daily -Hydrocodone 5/325 gram, takes 1 tablet every 4-6 hours when necessary. Will resume this now. Last prescription was in June 2016. # Hypothyroidism with history of Graves' disease - We will continue Levothyroxine 250 g daily. - TSH slightly elevated. Defer adjustment of her Levothyroxine to outpatient. # Mitral valve insufficiency # History of Acute bacterial endocarditis 05/06/2016 # History of Pericarditis # History of MSSA staph aureus bacteremia 06/12/2016 #Obesity # GERD - Continue Pantoprazole 40 mg 2 times daily Disposition: Admitted to in patient service with expected length of stay greater than 2 days, secondary to severity of presenting symptoms, treatment plan, complexity of clinical work up, and risk of adverse events. - Will dispo in AM as pt still c/o of abd pain. - Per Radiology, Dr Tse, patient does not need repeat imaging unless becomes symptomatic again. - Follow up with PCP in 1 week. - No antibiotics upon discharge per Infectious Disease. CODE STATUS: Full code PCP: Arielle Aguilar D.O Patient is seen by zoogler Dr. Del Valle DVT PE prophylaxis: SCD's Contact: Father Eddi Mother Varsha [phone] Exam Vital Signs (Last) Date Time Temp Pulse Resp B/P Pulse Ox O2 Delivery O2 Flow Rate FiO2 09/06/16 08:35 36.8 94 14 116/78 100 Room Air Test 09/02/16 04:40 09/02/16 06:30 09/02/16 11:33 09/02/16 22:21 Hemoglobin A1c 11.1% (4.8-5.6) Troponin T 0.010ug/L (0.0-0.011) C-Reactive Protein 0.7mg/dL (0.0-0.5) Ketones Large (Negative) Lactic Acid Level 1.0mmol/L (0.4-2.0) Prothrombin Time 10.0sec (8.1-12.5) Prothromb Time International Ratio 0.94ratio Urine Color Yellow (YELLOW) Urine Appearance Clear (CLEAR,HAZY) Urine pH 5.0 (5.0-8.0) Urine Specific [place] 1.020 (1.003-1.035) Urine Protein Negativemg/dL (NEG,TRACE) Urine Glucose (UA) 500mg/dL (NEGATIVE) Urine Ketones 15mg/dL (NEGATIVE) Urine Occult Blood Trace (NEGATIVE) Urine Nitrite Negative (NEGATIVE) Urine Bilirubin Negative (NEGATIVE) Urine Urobilinogen Normalmg/dL (NORMAL) Urine Leukocyte Esterase Negative (NEGATIVE) Urine RBC 0-2/hpf (0-2) Urine WBC 0-5/hpf (0-5) Urine Epithelial Cells Moderate/hpf (NONE-MOD) Urine Crystals None seen (NONE SEEN) Urine Bacteria Few/hpf (NONE-FEW) Urine Hyaline Casts None/lpf (NONE) Urine Granular Casts None seen (NONE SEEN) Urine Waxy Casts None seen (NONE SEEN) Urine Red Blood Cell Casts None seen (NONE SEEN) Urine White Blood Cell Casts None seen (NONE SEEN) Urine Mucus None seen (None Seen) Urine Trichomonas None seen (NONE SEEN) Urine Yeast Moderate (NONE SEEN) Urinalysis Comment None Urine Culture Reflexed Not indicated Test 09/03/16 03:25 09/04/16 04:15 Procalcitonin 0.07ng/mL (0.00-0.08) White Blood Count 5.6th/mm3 (3.8-10.1) Red Blood Count 4.11mil/mm3 (3.90-5.20) Hemoglobin 11.6g/dL (12.0-15.6) Hematocrit 37.3% (35.0-46.0) Mean Corpuscular Volume 90.8fL (81-100) Mean Corpuscular Hemoglobin 28.2pg (27.0-35.0) Mean Corpuscular Hemoglobin Concent 31.1% (32.0-37.0) Red Cell Distribution Width 18.5% (12.3-15.4) Platelet Count 234bil/L (150-400) Neutrophils (%) (Auto) 60.9% (40-74) Lymphocytes (%) (Auto) 27.6% (14-46) Monocytes (%) (Auto) 9.5% (4-12) Eosinophils (%) (Auto) 1.1% (0-5) Basophils (%) (Auto) 0.5% (0-3) Sodium Level 139mEq/L (134-144) Potassium Level 4.2mEq/L (3.5-5.2) Chloride Level 103mEq/L (97-108) Carbon Dioxide Level 21mmol/L (18-29) Blood Urea Nitrogen 12mg/dL (6-20) Creatinine 0.51mg/dL (0.57-1.00) Estimat Glomerular Filtration Rate 193mL/min (>59) Glucose Level 141mg/dL (60-99) Calcium Level 8.6mg/dL (8.5-10.1) Magnesium Level 1.9mg/dL (1.6-2.6) Total Bilirubin 0.2mg/dL (0.0-1.2) Aspartate Amino Transf (AST/SGOT) 15U/L (0-50) Alanine Aminotransferase (ALT/SGPT) 9U/L (0-32) Alkaline Phosphatase 173U/L (25-150) Total Protein 6.0g/dL (6.4-8.4) Albumin 3.0g/dL (3.4-5.0) Thyroid Stimulating Hormone (TSH) 5.560uIU/mL (0.450-4.500) Discharge Medications Discharge Medications Amitriptyline (Amitriptyline) 25 Mg Tab 50-100 MG PO HS (Reported) Aspirin Chew (Aspirin Chew) 81 Mg Chew 81 MG PO QAM (Reported) Atorvastatin (Lipitor) 80 Mg Tablet 80 MG PO HS (Reported) Digoxin (Digoxin) 250 Mcg Tablet 0.25 MG PO DAILY@12 Prescribed by: XENIA VELEZ DO Furosemide (Lasix) 80 Mg Tablet 80 MG PO DAILY Prescribed by: XENIA VELEZ DO Insulin Aspart (NovoLOG U-100 Pen) 100 Unit/Ml Insuln.pen 1-10 UNITS SQ ASDIRECTED (Reported) PER SLIDING SCALE Insulin Glargine (Lantus U100 Insulin Vial) 100 Unit/Ml Vial 15 UNIT SUBQ QAM ( Reported) TAKE LANTUS 15 UNITS IN AM AND 20 UNITS AT HS Insulin Glargine (Lantus U100 Insulin Vial) 100 Unit/Ml Vial 20 UNIT SUBQ HS ( Reported) TAKE LANTUS 15 UNITS IN AM AND 20 UNITS AT HS Levothyroxine (Levothyroxine) 50 Mcg Tablet 50 MCG PO QAM (Reported) TAKE LEVOTHYROXINE 200 MCG W/ 50 MCG TABLET (=250 MCG) TOTAL Lisinopril (Lisinopril) 20 Mg Tablet 20 MG PO QAM (Reported) Metoprolol Succinate ER (Metoprolol Succinate ER) 100 Mg Tab.er.24h 100 MG PO BID (Reported) Pantoprazole DR (Pantoprazole DR) 40 Mg Tablet.dr 40 MG PO BIDWM (Reported) Spironolactone (Spironolactone) 25 Mg Tablet 12.5 MG PO DAILY Prescribed by: XNEIA VELEZ DO Venlafaxine ER (Venlafaxine ER) 150 Mg Tab.er.24 150 MG PO QAM (Reported) As needed Apixaban (Eliquis) 5 Mg Tablet 5 MG PO DIRECTED PRN PRN DVT 2 tablets twice per day 10 days, then 1 tablet twice per day indefinitely. Prescribed by: SEBLE LEONARDO MD Cyclobenzaprine (Cyclobenzaprine) 10 Mg Tablet 10 MG PO TID PRN PRN Spasm ( Reported) Lorazepam (Ativan) 1 Mg Tablet 1 MG PO QID PRN PRN For Anxiety (Reported) Morphine Sulfate (Morphine Sulfate) 15 Mg Tablet 15 MG PO Q4H PRN PRN For Moderate Pain Prescribed by: JUSTIN DE LA TORRE MD Ondansetron ODT (Ondansetron ODT) 8 Mg Tab.rapdis 8 MG PO TID PRN PRN For Nausea Prescribed by: SEBLE LEONARDO MD Polyethylene Glycol 3350 (Miralax) 17 Gm Powd.pack 17 GM PO DAILY PRN PRN For Constipation Prescribed by: JUSTIN DE LA TORRE MD Sennosides (Senna) 8.6 Mg Tablet 17.2 MG PO BID PRN PRN For Constipation Prescribed by: JUSTIN DE LA TORRE MD Additional med instructions - No antibiotics upon discharge as all cultures have been negative. - Will prescribe oral Morphine until you follow up with your doctor. - Continue bowel regimen as long as you are taking pain medications. - Followup Plan Discharge Diet: No restrictions Discharge Activity: No restrictions Patient Instructions - Follow up with PCP in 1 week. - We spoke with Radiology and they feel only need repeat CAT scan imaging if having abdominal pain or other related symptoms again. Follow-up with PCP in: 1 week Time spent 50 minutes Justin De La Torre MD Sep 06, 2016 11:23
[2016-09-06 12:00] VITALS: PULSE 76
--- NOTE | 2016-09-06 12:24 | NUR ---
DC Pt given all discharge instructions and answered all questions. Given scripts for Morphine, senna, miralax. offered to make appts for follow up however pt stated that she would do this. Pt states she will check her blood sugar when she gets to her car and she refused her digoxin. Pt wheeled down to car with dad by this nurse @ [id number].
== END 2016-09-06 12:17 | disposition home or self-care (01) | DRG 356 ==
LOC: PCC 00:13 → MOC 09-04 16:02
PROVIDERS: ADMIT Hospitalist; ATTEND Internal Medicine
PROC: 0W9J3ZX Drainage of Pelvic Cavity, Percutaneous Approach, Diagnostic (ICD-10-PCS; principal; 2016-09-02)
DX: K65.8 Other peritonitis (principal); E10.10 Type 1 diabetes mellitus with ketoacidosis without coma; J90 Pleural effusion, not elsewhere classified; I50.22 Chronic systolic (congestive) heart failure; R10.31 Right lower quadrant pain; R10.32 Left lower quadrant pain; Z95.0 Presence of cardiac pacemaker; Z79.4 Long term (current) use of insulin; I25.10 Atherosclerotic heart disease of native coronary artery without angina pectoris; I34.0 Nonrheumatic mitral (valve) insufficiency; E03.9 Hypothyroidism, unspecified; F41.1 Generalized anxiety disorder; F32.9 Major depressive disorder, single episode, unspecified; E78.5 Hyperlipidemia, unspecified; M51.36 Other intervertebral disc degeneration, lumbar region; E66.09 Other obesity due to excess calories; K21.9 Gastro-esophageal reflux disease without esophagitis; Z86.711 Personal history of pulmonary embolism; Z86.718 Personal history of other venous thrombosis and embolism; R07.9 Chest pain, unspecified; E10.42 Type 1 diabetes mellitus with diabetic polyneuropathy; Z91.19 Patient's noncompliance with other medical treatment and regimen; N83.8 Other noninflammatory disorders of ovary, fallopian tube and broad ligament; Z68.35 Body mass index [BMI] 35.0-35.9, adult

== ENCOUNTER 2016-09-12 17:46 | Inpatient (IN) | payer OTHER ==
[~2016-09-12] VITALS: Ht 162.6 cm; Wt 92.8 kg
[~2016-09-12 17:46] MED LIST changes: -LEVO200T6 PO; +MORP15TA PO; +POLY17PO6 PO; +SENN-133 PO
[2016-09-12 17:51] VITALS: BP 132/86; PULSE 115; RESP 18; O2SAT 99
[2016-09-12] MEDS ORDERED: 0.9% Sodium Chloride 1,000 ML IV ONE ×2 (18:20)
[2016-09-12] MEDS ORDERED: Dextrose 5% 0.9% NaCl 1,000 ML IV ONE ×2 (18:20)
[2016-09-12] MEDS ORDERED: Ondansetron 2 mg/mL 2 mL Inj IVPUSH ONE (18:20)
--- NOTE | 2016-09-12 18:51 | ED.REPORT ---
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 She was admitted to the hospital one week ago for liver cyst removal and was kept in the hospital for 5 days. Since discharge, hospital she complains of increasing right sided pain combined with severe nausea and vomiting. The pain nausea and vomiting began last 24 hours, and has become progressively worse. Patient states she attempted eating popsicles and ice cubes, and was unable to keep any of these down. She states that her blood sugar last checked was in the mid to low 50s. Patient states she feels weak. Denies fever, chills, shortness of breath, headache. Nursing Notes Stated Complaint: TYPE I DIABETIC, VOMITING Chief Complaint: Female Abdominal Pain Nursing Notes Reviewed: Yes Allergies: Coded Allergies: amoxicillin (Verified Allergy, Severe, SHORTNESS OF BREATH, 06/18/16) Sulfa (Sulfonamide Antibiotics) (Verified Allergy, Intermediate, RASH, ) adhesive tape (Verified Allergy, Intermediate, REDNESS, 06/18/16) promethazine (Verified Allergy, Intermediate, SIDE EFFECTS JITTERY, ) oxycodone (Verified Adverse Reaction, Intermediate, SIDE EFFECT HALLUCINATIONS AND VOMITING, 06/18/16) Scheduled Amitriptyline (Amitriptyline) 25 Mg Tab 50-100 MG PO HS Aspirin Chew (Aspirin Chew) 81 Mg Chew 81 MG PO QAM Atorvastatin (Lipitor) 80 Mg Tablet 80 MG PO HS Digoxin (Digoxin) 250 Mcg Tablet 0.25 MG PO DAILY@12 Furosemide (Lasix) 80 Mg Tablet 80 MG PO DAILY Insulin Aspart (NovoLOG U-100 Pen) 100 Unit/Ml Insuln.pen 1-10 UNITS SQ ASDIRECTED PER SLIDING SCALE Insulin Glargine (Lantus U100 Insulin Vial) 100 Unit/Ml Vial 15 UNIT SUBQ QAM TAKE LANTUS 15 UNITS IN AM AND 20 UNITS AT HS Insulin Glargine (Lantus U100 Insulin Vial) 100 Unit/Ml Vial 20 UNIT SUBQ HS TAKE LANTUS 15 UNITS IN AM AND 20 UNITS AT HS Levothyroxine (Levothyroxine) 50 Mcg Tablet 50 MCG PO QAM TAKE LEVOTHYROXINE 200 MCG W/ 50 MCG TABLET (=250 MCG) TOTAL Lisinopril (Lisinopril) 20 Mg Tablet 20 MG PO QAM Metoprolol Succinate ER (Metoprolol Succinate ER) 100 Mg Tab.er.24h 100 MG PO BID Pantoprazole DR (Pantoprazole DR) 40 Mg Tablet.dr 40 MG PO BIDWM Spironolactone (Spironolactone) 25 Mg Tablet 12.5 MG PO DAILY Venlafaxine ER (Venlafaxine ER) 150 Mg Tab.er.24 150 MG PO QAM Scheduled PRN Apixaban (Eliquis) 5 Mg Tablet 5 MG PO DIRECTED PRN PRN DVT 2 tablets twice per day 10 days, then 1 tablet twice per day indefinitely. Cyclobenzaprine (Cyclobenzaprine) 10 Mg Tablet 10 MG PO TID PRN PRN Spasm Lorazepam (Ativan) 1 Mg Tablet 1 MG PO QID PRN PRN For Anxiety Morphine Sulfate (Morphine Sulfate) 15 Mg Tablet 15 MG PO Q4H PRN PRN For Moderate Pain Ondansetron ODT (Ondansetron ODT) 8 Mg Tab.rapdis 8 MG PO TID PRN PRN For Nausea Polyethylene Glycol 3350 (Miralax) 17 Gm Powd.pack 17 GM PO DAILY PRN PRN For Constipation Sennosides (Senna) 8.6 Mg Tablet 17.2 MG PO BID PRN PRN For Constipation General Time Seen by MD: 18:00 Chief Complaint Abdominal pain Hx Obtained From: Patient Sudden in Onset?: Yes Onset Occurred: 1 day ago Symptom Duration: Constant Severity: Current: Pain level 8 out of 10 Recent Healthcare: Recent hospitalization Risk Factors Ectopic Risk Stratification Risk factors reviewed CAD Risk Stratification Risk factors reviewed TAD Risk Stratification Risk factors reviewed Past Medical History Past Medical History Type I diabetes Graves' disease 1991 PTSD History of medication noncompliance SVT Heart Block Anxiety Uterine fibroids Hiatal hernia Renal abscess Pulmonary Embolism Past Surgical History Cholecystectomy Partial thyroidectomy Right oopherectomy Right abdominal hernia repair with appendectomy SVT ablation on 03/26/16 Pacemaker insertion 03/27/16 for complete heart block Pacemaker replacement 06/2016 Right percutaneous nephrostomy Left foot surgery Family History Father with type II diabetes currently on dialysis. Mother had knee problems half brother had type I diabetes and at age 33 due to possible hypoglycemia Smoking History Never Smoker Social History Alcohol Use: Denies alcohol use Drug Use: Denies drug use Other Social History: Good social support Ambulatory Status Independent Review of Systems Constitutional: Reports: Lethargy, Denies: Chills, Fever Respiratory: Denies: Non-productive cough, Pleuritic pain Cardiovascular: Denies: Chest pain GI: Reports: Abdominal pain, Nausea, Vomiting, Denies: Constipation, Diarrhea Female: Denies: Dysuria Complete sys rev & neg: except as marked. Physical Exam Initial Vital Signs Vital Signs (First) Date Time Temp Pulse Resp B/P Pulse Ox O2 Delivery O2 Flow Rate FiO2 09/12/16 17:51 36.6 115 18 132/86 99 Room Air Head / Eyes: Atraumatic, Normocephalic, PERRL ENT: Mucous membranes moist, Conjunctiva normal, No scleral icterus Neck: Supple, Non-tender, Full range of motion Extremities: Vascular intact, Neuro intact, No swelling, No tenderness Skin: Warm, Dry, No cyanosis Neurologic: Alert, Oriented, Nonfocal Psychiatric: Mood/affect normal, Behavior normal, Normal thought content Respiratory / Chest: Atraumatic, Breath sounds NL, Breath sounds = bilat, No respiratory distress Cardiovascular: Heart rate NL, Regular rhythm, Heart sounds NL Abdomen: Atraumatic, Soft, No guarding, No rebound, BS normoactive Tenderness/Guarding/Rebound: Positive: Tender RUQ... (Moderate) Interpretation & Diagnostics Lab Results Interpretation Result Diagram: 09/12/16 1920 Test 09/12/16 19:20 Sodium Level 136mEq/L (134-144) Potassium Level 4.2mEq/L (3.5-5.2) Chloride Level 97mEq/L (97-108) Carbon Dioxide Level 12mmol/L (18-29) Blood Urea Nitrogen 14mg/dL (6-20) Creatinine 0.84mg/dL (0.57-1.00) Estimat Glomerular Filtration Rate 109mL/min (>59) Glucose Level 125mg/dL (60-99) Lactic Acid Level 1.6mmol/L (0.4-2.0) Calcium Level 10.2mg/dL (8.5-10.1) Total Bilirubin 0.4mg/dL (0.0-1.2) Aspartate Amino Transf (AST/SGOT) 14U/L (0-50) Alanine Aminotransferase (ALT/SGPT) 11U/L (0-32) Alkaline Phosphatase 217U/L (25-150) Total Protein 9.2g/dL (6.4-8.4) Albumin 4.3g/dL (3.4-5.0) Human Chorionic Gonadotropin, Qual Negative (Negative) Digoxin Level < 0.3nG/mL (0.9-2.0) ECG Interpretation ECG Interpretation: Atrial-sensed ventricular-paced complexes with a rate of 103. Time: 18:15 Interpreted by: ED physician Re-Eval/Medical Decision Med Decision/Clinical Course Patient has a complicated history, with her recent procedure to drain the abscess in her liver combined with the fact that she is constantly on anticoagulation we are concerned for bleed and for this reason a CT scan was obtained. The CT scan results were equivocal to the previous CT scan done to evaluate for fluid in the peritoneum. At this point, I do not suspect that there is major bleeding in this area however the patient's symptoms of intractable nausea and vomiting combined with her history of type I diabetes this is enough to admit her to the hospital this time. I discussed these findings with the patient and gave her the option of managing this at home or being admitted to the hospital for further monitoring at this time, and she states she would feel more comfortable being watched in the hospital for at least 24 hours. Re-Evaluation/Progress : Time of Eval: 21:28 Re-Evaluation/Progress Note: Pt rechecked. Informed pt of plan for admission. Pt understands and agrees with plan for admission. All questions addressed. Consultation : Referral / Consult Name: Elizabeth Juan MD Consulted With: Hospitalist Call Returned at: 21:27 Retail Service Representative: Will see patient, Agrees with eval, Agrees with plan, Accepts admit Counseled Regarding: Diagnosis, Lab results, Need for admission Discharge & Departure Primary Impression: Intractable nausea and vomiting Vomiting type: unspecified Qualified Code: R11.2 - Nausea with vomiting, unspecified Additional Impressions: Type I diabetes mellitus Diabetes mellitus complication status: without complication Qualified Code: E10.9 - Type 1 diabetes mellitus without complications History of recent surgery Anticoagulation adequate Disposition: ADMITTED TO HOSPITAL Discharge Condition All VS Reviewed: Yes Condition: Stable Referrals: Arielle Aguilar DO (PCP) Britton Danielle DO Sep 12, 2016 18:41 Di Bergman Sep 12, 2016 18:52
[2016-09-12 19:19] VITALS: BP 138/73; PULSE 107; RESP 22; O2SAT 100
--- NOTE | 2016-09-12 20:42 | DRSVH ---
PROCEDURE: CT ABDOMEN AND PELVIS WITH CONTRAST (PNL-7102) INDICATIONS: Right abdominal pain with nausea and vomiting. TECHNIQUE: After the administration of oral and intravenous contrast, 5 mm thick sections acquired from the diap hragms to the symphysis. 5 mm thick coronal and sagittal reformats were performed. For radiation do se reduction, the following was used: automated exposure control, adjustment of mA and/or kV accordi ng to patient size. COMPARISON: [facility], CT, CT ABD PELVIS W CON, 09/02/2016, 17:45. FINDINGS: Image quality: Excellent. ABDOMEN: Lung bases: Lung bases are clear. Heart size is normal. Solid organs: There is mild focal fatty infiltration in the anterior left hepatic lobe. The spleen is normal in size. Gallbladder is surgically absent. Biliary system is mildly dilated which may be associated with prior cholecystectomy. Pancreas enhances normally. No adrenal nodules. The kidney s demonstrate symmetric enhancement bilaterally without perinephric fluid collections or hydronephros is. Peritoneum and bowel: Stomach, small bowel, and colon loops are normal in caliber and wall thickness . The appendix is not discretely identified and is likely surgically absent. No pericecal inflammat ory changes to suggest appendicitis. There is a minimal amount of free fluid in the right paracolic gutter and right subhepatic space redemonstrated without a discrete loculated fluid collection to sug gest an abscess. No free air. Nodes and vessels: No retroperitoneal or mesenteric adenopathy. Aorta and inferior vena cava are no rmal in caliber. Miscellaneous: No ventral hernias. PELVIS: Genitourinary: Bladder wall thickness is normal. There is a large lobulated appearance of the uteru s consistent with multiple fibroids. Miscellaneous: No inguinal hernias or adenopathy. Bones: No suspicious bony lesions. No vertebral body compression fractures. IMPRESSION: 1. Small amount of nonspecific intraperitoneal free fluid in the right paracolic gutter and subhepat ic space redemonstrated, similar to the prior study. No loculated abscess collection identified. 2. No evidence of pyelonephritis, hydronephrosis, or perinephric abscess. Dictated by: Michael Ovalle M.D. on 09/12/2016 at 20:35 Approved by: Michael Ovalle M.D. on 09/12/2016 at 20:40
[2016-09-12 21:48] VITALS: BP 130/60; PULSE 108; RESP 21; O2SAT 100
[2016-09-12] MEDS ORDERED: Ondansetron 2 mg/mL 2 mL Inj IVPUSH PRN (21:50)
[2016-09-12] MEDS ORDERED: Alum-Mag Hydrox-Simeth 30 mL Suspension PO PRN ×2 (21:50→22:25)
[2016-09-12] MEDS ORDERED: LEVO200T6 PO (21:59)
[2016-09-12 22:10] VITALS: BP 151/84; PULSE 11; RESP 20; O2SAT 100
[2016-09-12] MEDS ORDERED: Polyethylene Glycol (PEG) 17 Gm Powder PO PRN (22:25)
--- NOTE | 2016-09-12 22:25 | NUR ---
Admit Pt arrived onto unit approx 2210 with WAG[employer] D[employer] OPERATOR on hospital bed, after report from Geni ELIZABETH. Pt able to ambulate with steady gait to scale and bed. No nausea at this time, HR & BP elevated, will recheck, possibly due to ambulation. Oriented pt to room, call light, bathroom, etc.
[2016-09-12] MEDS ORDERED: MetoCLOpramide 5 mg/mL 2 mL Inj IVPUSH PRN (22:30)
[2016-09-12] MEDS ORDERED: LORazepam 1 mg Tablet PO PRN (23:00)
--- NOTE | 2016-09-12 23:28 | PCM.HPMED ---
Subjective Date of Service Sep 12, 2016 Primary Provider: Admitting Physician: Elizabeth Juan MD Primary Care Physician: Arielle Aguilar DO Attending Physician: Elizabeth Juan MD Chief Complaint: abd pain w/ n/v History of Present Illness: 36-year-old female with complex pmhx of type I diabetes, Graves' disease, heart block status post pacemaker, CHF with LVEF of 25%, history of PE/DVTs on Eliquis , and CAD who presented to the ED for complaints of n/v since yesterday. She was recently admitted to this hospital approximately 1 week ago for a liver cyst , which was aspirated. Upon discharge, patient reports she was doing ok until yesterday afternoon. She reports feeling somewhat nauseous after dinner and then eventually vomited up her meal. She states her nausea and vomiting became progressively worse, to the point that she was not able to keep fluids down. She noted that later in the night, she started having crampy RLQ abdominal pain again. She also endorses mild headache, lightheadedness, and acid reflux like symptoms. Her symptoms continued through the following day and has not improved. No one else at home has similar symptoms either. She reports checking her sugars, which was generally in the 80s and 90s, but did go all the way down to 50 once. She reports eating a popsicle to try and get her sugar up, then she went to the ER. Throughout the episode, she denied any fever/chills, diarrhea, CP, SOB, melena, or hematochezia. She reports she did have a regular BM yesterday and her abdominal pain has not been severe enough that she needed to take her Morphine. She is currently on the 5th day of her menstrual cycle. She reports irregular cycles since she had her right oophorectomy when she was a teenager due to multiple cysts. In the ER, she was mildly tachycardic but afebrile and normotensive She was CMP that showed mildly elevated alkaline phosphatase of 217, but was otherwise benign Her CBC was still pending and patient was not able to give a urine yet due to decreased urination She did have a CT of her abdomen and pelvis which noted small amount of fluid in the right colic gutter, which was similar to prior studies. She was admitted for observation due to intractable nausea and vomiting Review of Systems: Complete ROS reviewed with patient and is neg except as stated in the HPI Allergies Coded Allergies: Sulfa (Sulfonamide Antibiotics) (Verified Allergy, Severe, RASH, SOB, 09/12) amoxicillin (Verified Allergy, Severe, SHORTNESS OF BREATH, 09/12/16) promethazine (Verified Allergy, Intermediate, Jittery, nausea, 09/12/16) adhesive tape (Verified Adverse Reaction, Intermediate, REDNESS, 09/12/16) oxycodone (Verified Adverse Reaction, Intermediate, SIDE EFFECT HALLUCINATIONS AND VOMITING, 09/12/16) Home Medications From last discharge summ: Discharge Medications Amitriptyline (Amitriptyline) 25 Mg Tab 50-100 MG PO HS (Reported) Aspirin Chew (Aspirin Chew) 81 Mg Chew 81 MG PO QAM (Reported) Atorvastatin (Lipitor) 80 Mg Tablet 80 MG PO HS (Reported) Digoxin (Digoxin) 250 Mcg Tablet 0.25 MG PO DAILY@12 Prescribed by: XENIA VELEZ DO Furosemide (Lasix) 80 Mg Tablet 80 MG PO DAILY Prescribed by: XENIA VELEZ DO Insulin Aspart (NovoLOG U-100 Pen) 100 Unit/Ml Insuln.pen 1-10 UNITS SQ ASDIRECTED (Reported) PER SLIDING SCALE Insulin Glargine (Lantus U100 Insulin Vial) 100 Unit/Ml Vial 15 UNIT SUBQ QAM ( Reported) TAKE LANTUS 15 UNITS IN AM AND 20 UNITS AT HS Insulin Glargine (Lantus U100 Insulin Vial) 100 Unit/Ml Vial 20 UNIT SUBQ HS ( Reported) TAKE LANTUS 15 UNITS IN AM AND 20 UNITS AT HS Levothyroxine (Levothyroxine) 50 Mcg Tablet 50 MCG PO QAM (Reported) TAKE LEVOTHYROXINE 200 MCG W/ 50 MCG TABLET (=250 MCG) TOTAL Lisinopril (Lisinopril) 20 Mg Tablet 20 MG PO QAM (Reported) Metoprolol Succinate ER (Metoprolol Succinate ER) 100 Mg Tab.er.24h 100 MG PO BID (Reported) Pantoprazole DR (Pantoprazole DR) 40 Mg Tablet.dr 40 MG PO BIDWM (Reported) Spironolactone (Spironolactone) 25 Mg Tablet 12.5 MG PO DAILY Prescribed by: XENIA VELEZ DO Venlafaxine ER (Venlafaxine ER) 150 Mg Tab.er.24 150 MG PO QAM (Reported) As needed Apixaban (Eliquis) 5 Mg Tablet 5 MG PO DIRECTED PRN PRN DVT 2 tablets twice per day 10 days, then 1 tablet twice per day indefinitely. Prescribed by: SEBLE LEONARDO MD Cyclobenzaprine (Cyclobenzaprine) 10 Mg Tablet 10 MG PO TID PRN PRN Spasm ( Reported) Lorazepam (Ativan) 1 Mg Tablet 1 MG PO QID PRN PRN For Anxiety (Reported) Morphine Sulfate (Morphine Sulfate) 15 Mg Tablet 15 MG PO Q4H PRN PRN For Moderate Pain Prescribed by: JUSTIN GREGORY MD Ondansetron ODT (Ondansetron ODT) 8 Mg Tab.rapdis 8 MG PO TID PRN PRN For Nausea Prescribed by: SEBLE LEONARDO MD Polyethylene Glycol 3350 (Miralax) 17 Gm Powd.pack 17 GM PO DAILY PRN PRN For Constipation Prescribed by: JUSTIN GREGORY MD Sennosides (Senna) 8.6 Mg Tablet 17.2 MG PO BID PRN PRN For Constipation Prescribed by: JUSTIN GREGORY MD [facility] Type I diabetes Graves' disease 1991 PTSD History of medication noncompliance SVT s/p ablation with resultant CHB, now s/p pacemaker Anxiety Uterine fibroids Hiatal hernia Renal abscess Pulmonary Embolism Surgical History Cholecystectomy Partial thyroidectomy Right oopherectomy Right abdominal hernia repair with appendectomy SVT ablation on 03/26/16 Pacemaker insertion 03/27/16 for complete heart block Pacemaker replacement 06/2016 due to pacemaker infection Right percutaneous nephrostomy Left foot surgery Family History Father with type II diabetes currently on dialysis. half brother had type I diabetes and at age 33 due to possible hypoglycemia Social History Hx Alcohol Use: No Hx Substance Use: No Hx Tobacco Use: No Smoking Status: Never Smoker Living Arrangement: with Family Exam Vital Signs Vital Sign - Last Date Time Temp Pulse Resp B/P Pulse Ox O2 Delivery O2 Flow Rate FiO2 09/12/16 21:48 36.9 108 21 130/60 100 Room Air Exam General: Obese female who appears in mild distress. She appears chronically ill and older than stated age HEENT: Normocephalic, atraumatic. PERRLA. Anicteric sclerae, moist conjunctivae, and no lid lag. Oropharynx mildly dry with pink mucosa Neck: Supple with full range of motion. No jugular venous distension. Cardiovascular: Regular rate and rhythm with soft systolic murmur, pacemaker palpable in upper chest Pulmonary: Clear to auscultation bilaterally with no crackles, wheezes, or rhonchi. Normal respiratory effort with no use of accessory muscles. Abdomen: Bowel tones are hyperactive. Abdomen is soft but obese, mildly tender to palpation in the right lower quadrant, no guarding or rebound, no rashes noted, nondistended MSK: Muscle strength grossly intact and equal, no swollen or tender joints Skin: Some mild confluent chronic vascular changes of bilateral forearm, skin is otherwise warm dry and intact with somewhat decreased turgor Neurological: Cranial nerves grossly intact. No focal deficits, face symmetric , stocking hypoesthesia bilaterally Psychiatric: Normal mood and affect. Alert and oriented to person, place, and time. Cooperative Lab and Diagnostics Result Diagram: 09/12/161919 X-Rays, CTs and MRIs PROCEDURE: CT ABDOMEN AND PELVIS WITH CONTRAST (PNL-7102) IMPRESSION: 1. Small amount of nonspecific intraperitoneal free fluid in the right paracolic gutter and subhepatic space redemonstrated, similar to the prior study. No loculated abscess collection identified. 2. No evidence of pyelonephritis, hydronephrosis, or perinephric abscess. 12-lead ECG V-paced EKG with no acute St changes. Assessment & Plan 36-year-old female with complex pmhx of type I diabetes, Graves' disease, heart block status post pacemaker, CHF with LVEF of 25%, history of PE/DVTs on Eliquis , and CAD who presented to the ED for complaints of n/v since yesterday. Intractable Nausea and Vomiting, Acute, POA - Patient presenting with acute N/V. DDx gastroparesis, viral gastroenteritis, PUD. - No other s/s of infection and CT abd/pelvis did not show any acute changes. - Patient is mildly dehydrated but has a reduced EF, so we will hydrate cautiously, She already received 1 Liter NS in the ED - Plan to use Reglan for nausea control since gastroparesis is high on the ddx. RLQ Abdominal Pain, POA - Uncertain of cause. but Pt does have a history of endometriosis and large uterine fibroids. She is s/p right oophorectomy and appendectomy. - No colitis or acute inflammation seen on CT. May consider U/s for repeat evaluation. - Will continue to monitor overnight for any progression of symptoms. May need outpatient gynecology follow up. Systolic CHF, chronic, stable. - Last Echo in June 2016 showed EF to be 25-30% - No signs or symptoms of fluid overload or decompensation. - Continue home spironolactone, Lisinopril, and Metoprolol. Will also resume Lasix - Closely monitor I/Os Type I diabetes mellitus with diabetic polyneuropathy, uncontrolled. - Patient is a brittle diabetic who is fairly uncontrolled. - Due to poor PO intake and low sugars, will hold Basal insulin and only use correctional - Day team to resume basal insulin when appropriate CAD of a douglas artery, POA - Stable, no anginal symptoms on admission - Continue home medications: Lipitor, Lisinopril, and ASA. - Patient is also on Eliquis for PEs, although only once a day dosing. May need to verify dosing. Complete heart block s/p pacemaker, POA - V-paced, stable - Placed on Telemetry for CV monitoring Chronic Mood Disorders, POA - History of PTSD, DAISY, and Depression - will continue Amitriptyline 25 mg takes 2-4 tablets by mouth at bedtime, Ativan 1 mg QID PRN - We will continue Venlafaxine ER 150 mg daily Dyslipidemia, chronic. - Continue Atorvastatin 80 mg tablet daily Chronic pain disorder, POA - Secondary to degenerative disease of Lumbars - Currently has PO morphine for pain management Hypothyroidism with history of Graves' disease - We will continue Levothyroxine 250 g daily. - TSH was elevated last admission, will recheck levels and titrate as needed Chronic GERD - Continue Pantoprazole 40 mg 2 times daily Tylenol for fever as needed Bowel regimen for constipation as needed CODE STATUS: Full resuscitation Patient is admitted under observation status with expected length of stay less than 2 midnights due to severity of presenting symptoms, risk of adverse event, and complexity of treatment plan. Pain Evaluation: Adequate Pain Control VTE Prophylaxis: Other (Eliquis) Resuscitation Status: CPR: Attempt Resuscitation Attending Statement Pt seen and [id number] by myself and agree with above plan. Cristobal Tavarez DO Sep 12, 2016 22:21 Elizabeth Juan MD Sep 13, 2016 06:08
[2016-09-12 23:39] LABS: BASOPHILS % (AUTO) 0.3 % (0-3); EOSINOPHILS % (AUTO) 0.5 % (0-5); MONOCYTES % (AUTO) 8.8 % (4-12); Mean Corpuscular Hemoglobin 28.9 pg (27.0-35.0); NEUTROPHILS % (AUTO) 72.3 % (40-74); Platelet Count 270 bil/L (150-400)
[2016-09-13] VITALS (8 sets, daily range): BP systolic 112–145; BP diastolic 57–72; PULSE 106–118; RESP 18–39; O2SAT 97–100
--- NOTE | 2016-09-13 00:03 | NUR ---
SCD's Pt refused SCD's despite education. This nurse encouraged ambulation after educating patient on the reasoning of SCD's.
[2016-09-13 00:31] LABS: APPEARANCE,URINE CLEAR (CLEAR,HAZY); COLOR,URINE YELLOW (YELLOW); OCCULT BLOOD,URINE LARGE (NEGATIVE); PH,URINE 5.5 (5.0-8.0); UROBILINOGEN,URINE NORMAL (NORMAL)
[2016-09-13] MEDS: Nystatin 100,000 Unit/Gm 15 Gm Powder TOPICAL SCH ×3 (00:40→20:57)
[2016-09-13] MEDS ORDERED: Glucose 40% Oral Gel 15 Gm Tube PO PRN (01:10)
[2016-09-13] MEDS: Ondansetron 2 mg/mL 2 mL Inj IVPUSH PRN ×2 (03:27→12:26)
--- NOTE | 2016-09-13 03:32 | NUR ---
Nausea/Vomiting Pt had mild to no nausea after admit, wanted to hold off on anti-emetics and start on ice chips and sipping water. Pt started throwing up large amounts of pink liquid - she had put a fruit punch lemonade powder into her water and drank the entire 400ml. Reglan administered, cleaned her up and settled her back into bed, recommending a break from liquids and no flavored water when she continues liquids. Pt rested an hour and then requested ice chips and Zofran administered. Pain 5/10, HR up to 116, morphine helping with pain. Pt refused tylenol for breakthru pain. She is using a personal fan for comfort, offered cold washcloths for forehead, she refused. Will continue frequent rounding.
--- NOTE | 2016-09-13 04:55 | NUR ---
Pain control Pt c/o 12/10 pain in RLQ wrapping around to back. Was 6-7/10 then "immediately jumped up". Morphine administered and provided no relief. Physician paged, ordered Toradol, suggested heat pack and already available Flexeril. Flexeril refused by patient, and she was requesting Dilaudid. Provided education on how if morphine wasn't touching the pain, dilaudid likely wouldn't either, and toradol and flexeril would be good alternative options. Will recheck on patient shortly.
--- NOTE | 2016-09-13 05:54 | NUR ---
Hyperventilating Pt hyperventilating on toilet, pulled call light. Charge nurse and this nurse responded, got her back into bed, Sats at 100%, applied 3L NC for comfort. Talked patient thru with slow even breaths. Pt calling out for doctor. Physician paged. Arrived onto unit at 0600 to evaluate patient and ordered Ativan IV and Dilaudid IV.
[2016-09-13] MEDS ORDERED: HYDROmorphone 1 mg/mL Inj IVPUSH ONE (06:05)
[2016-09-13] MEDS ORDERED: SODIUM CHLORIDE 0.9% IV ONE (06:05)
[2016-09-13] MEDS ORDERED: HYDROMORPHONE IV ONE (06:05)
--- NOTE | 2016-09-13 06:44 | ABG ---
DateTimeAnalyzed 06:36:12 -_ pH ____6.921 - 7.350 7.450 pCO2 ____9.7__ -mmHg 35.0 45.0 pO2 151 -mmHg 69.0 116 HCO3- ____2.0__ -mmol/L 22.0 26.0 ABE __-28.5__ -mmol/L tHb ___13.6__ -g/dL O2Hb ___96.3__ -% COHb ____1.1__ -% 1.5 MetHb ____0.6__ -% sO2 ___98.0__ -% FIO2 ___24.0__ -% Drawn By MK - Date/Time Notified____ 06:44:00 -_ Oxygen Device 1 __CANNULA - Notified By MK - Notified Whom Dr Kepenski - K+ ____5.6__ -mmol/L tO2 ___18.6__ -Vol% Gonzalez test _Positive -
[2016-09-13] MEDS ORDERED: Heparin 5,000 Unit/mL Inj IVPUSH PRN (06:45)
[2016-09-13] MEDS ORDERED: Heparin 5,000 Unit/mL Inj IVPUSH ONE (06:45)
[2016-09-13] MEDS ORDERED: Heparin 25K Unit/500mL 0.45 NS 25,000 UNIT in IV Premix 1 EACH IV SCH (06:45)
[2016-09-13] MEDS ORDERED: 0.9% Sodium Chloride 1,000 ML IV ONE ×2 (07:05→07:10)
[2016-09-13] MEDS ORDERED: Sodium Acetate Inj 150 MEQ in Dextrose 5% 1,000 ML IV SCH (07:20)
[2016-09-13] MEDS ORDERED: Insulin Human REGular-Omnicell 100 Unit/mL IV ONE (07:35)
--- NOTE | 2016-09-13 07:36 | NUR ---
Rapid Response/Transfer to CCU Paged Dr. Tavarez, arrived at bedside, evaluated patient, Ativan and Diluadid administered. After no improvement, and pt unable to verbally respond coherently, Dr. Tavarez called in Dr. Juan and respiratory therapy. This nurse called Tele Monitor - Tachy 130s. Vitals taken (not recorded) BP 150s/80s, RR 37, O2 100% 2L NC. Kept O2 monitor on. Rapid Response called and arrived onto unit. Transfer to CCU. This nurse followed with personal items and placed in closet of new room. Report given to CCU nurse.
--- NOTE | 2016-09-13 07:39 | DRSVH ---
PROCEDURE: X-RAY CHEST ONE VIEW, PORTABLE ([id number]) INDICATIONS: SOB TECHNIQUE: One view of the chest was acquired. COMPARISON: [facility], CR, XR CHEST 1VW (PORTABLE), 07/02/2016, 20:25. FINDINGS: Surgical changes and devices: Dual-lead pacemaker from the right side. monitoring engineer leads are seen over the chest. Lungs and pleura: No pleural effusions or pneumothorax. Lungs are clear. The pulmonary vasculature is normal. Mediastinum: Mediastinal contours appear normal. Heart size is normal. Bones and chest wall: No suspicious bony lesions. Overlying soft tissues appear unremarkable. IMPRESSION: No acute disease. No cause for shortness of breath is seen. Dictated by: Eddi Constantino M.D. on 09/13/2016 at 7:36 Approved by: Eddi Constantino M.D. on 09/13/2016 at 7:36
[2016-09-13] MEDS ORDERED: Dextrose 10% 250 ML IV ONE (07:40)
[2016-09-13] MEDS: Pantoprazole 40 mg ER24 Tablet PO SCH ×2 (07:58→17:30)
[2016-09-13] MEDS: MeTOProlol XL 50 mg ER24 Tablet PO SCH ×2 (07:59→21:03)
[2016-09-13] MEDS: Venlafaxine XR 75 mg ER24 Capsule PO SCH (07:59)
[2016-09-13] MEDS: Insulin LISPRO 300 Unit/3 mL Inj SUBQ SCH ×4 (08:00→21:04)
[2016-09-13] MEDS ORDERED: Insulin Human REGular Inj 100 UNIT in 0.9% Sodium Chloride-Pha MIX 100 ML IV ONE ×2 (08:00→14:20)
--- NOTE | 2016-09-13 09:23 | DRSVH ---
PROCEDURE: X-RAY CHEST ONE VIEW, PORTABLE ([id number]) INDICATIONS: 36 year-old female with central line placement. TECHNIQUE: One view of the chest was acquired. COMPARISON: [facility], CR, XR CHEST 1VW (PORTABLE), 09/13/2016, 6:40. [facility], CR, XR CHEST 1VW (PORTABLE), 07/02/2016, 20:25. [facility], CR, XR CHEST 1VW (PORT ABLE), 06/25/2016, 4:26. FINDINGS: Surgical changes and devices: Right internal jugular central venous catheter is present, with tip at the cavoatrial junction. Right chest wall dual chamber pacemaker is again noted. Lungs and pleura: No pleural effusions or pneumothorax. Lungs are clear. Lung volumes are decrease d. Mediastinum: Mediastinal contours appear normal. Heart size is normal. Bones and chest wall: No suspicious bony lesions. Overlying soft tissues appear unremarkable. IMPRESSION: Right internal jugular central venous catheter is in expected position. No pneumothorax. Dictated by: Víctor Jama M.D. on 09/13/2016 at 8:20 Approved by: Víctor Jama M.D. on 09/13/2016 at 8:22
[2016-09-13] MEDS ORDERED: Sodium Chloride LOK Flush 10 mL Syringe IVFLUSH PRN (09:30)
[2016-09-13 09:45] LABS: BASOPHILS % (AUTO) 0.2 % (0-3); EOSINOPHILS % (AUTO) 0.2 % (0-5); MONOCYTES % (AUTO) 7.4 % (4-12); Mean Corpuscular Hemoglobin 29.3 pg (27.0-35.0); Mean Corpuscular Volume 92.6 fL (81-100); Platelet Count 341 bil/L (150-400)
--- NOTE | 2016-09-13 10:10 | PROCED ---
[address] [address] PROCEDURE NOTE PATIENT: KAYLEE TURNER : 1980 MR#: [id number] ADMIT: 09/12/2016 JOB ID: [id number] DATE OF SERVICE: POSTOPERATIVE DIAGNOSIS(ES): PREOPERATIVE DIAGNOSIS(ES): SURGEON: Robert Larson MD PROCEDURE: Central line. PROCEDURE NOTE: I was called by the meal miller to come and assist in placement of a central line for a patient needing central access. When I arrived at the bedside, the patient was having the procedure underway. Dr. Viramontes had already prepped the patient and was using full barrier precaution. I put on gown and gloves using sterile technique, and using an ultrasound probe, I found the right internal jugular vein. This vein was cannulated with an 18-gauge introducer needle, after which a guidewire was placed through the needle and guidewire position was confirmed in the veins using the ultrasound probe. A skin mariella was made and then the dilator was placed over the guidewire and the incision was dilated. After this, a triple lumen central venous line was placed over the guidewire using Seldinger technique. The guidewire was removed and all ports of the line were aspirated and flushed. The central line was secured in place by the IV therapist. The patient tolerated the procedure without any apparent complications. Chest x-ray is pending to confirm line placement.
[2016-09-13 10:15] LABS: Magnesium 2.2 mg/dL (1.6-2.6)
--- NOTE | 2016-09-13 10:16 | ABG ---
DateTimeAnalyzed 10:09:00 -_ pH ____6.971 - pCO2 ___16.1__ -mmHg pO2 ___62.4__ -mmHg HCO3- ____3.5__ -mmol/L ABE __-27.7__ -mmol/L tHb ___11.9__ -g/dL O2Hb ___80.3__ -% COHb ____1.5__ -% MetHb ____1.4__ -% sO2 ___82.7__ -% FIO2 ___28.0__ -% Drawn By as - Date/Time Notified____ 10:15:00 -_ Spontaneous_RR ___28.0__ -b/min Liter_Flow ____3.0__ -L/min Oxygen Device 1 __oxymask - Notified By ams - Notified Whom dr kendregan - B 761 -mmHg tO2 ___13.4__ -Vol% OrderingPhysicianInitials bak - Gonzalez test N/A -
[2016-09-13] MEDS: 0.9% Sodium Chloride 1,000 ML IV SCH ×2 (11:13→12:07)
--- NOTE | 2016-09-13 11:29 | PCM.PNMED ---
Subjective Date of Service Sep 13, 2016 Subjective Early this morning, patient complained of severe RLQ abdominal pain that not relieved with Dilaudid. She soon developed hyperventilation and her ABG showed pH of 6.9 with bicarb of 3.5. Blood sugar >1000. She was then transferred to CCU for possible intubation and higher level of care. Today, patient appears obtunded and unable to provide any history. Per her father, patient did well after the discharge until she developed severe bouts of vomiting yesterday and did not fell well so they send her to the ED. Her father states that the patient takes her insulin daily and is supposed to follow up with Endocrinology. Of note, the patient was in the hospital recently from 09/02-09/06/16 for perinephric/perihepatic fluid collection and was treated with antibiotics. The needle aspiration of the perihepatic fluid collection was sterile. At the end of her hospitalization, there was no evidence of infection and she was discharged without antibiotics. During the hospital stay, the patient has had RLQ and LLQ quadrant pain that improved with pain medication. At the last hospital visit, she also had DKA with blood sugar up to 462 that resolved with IV insulin. Exam Vital Signs Vital Sign - Last Date Time Temp Pulse Resp B/P Pulse Ox O2 Delivery O2 Flow Rate FiO2 09/13/16 03:34 113 09/13/16 03:00 36.7 121/64 97 Room Air 09/12/16 22:10 20 Exam General: Obese female, lethargic, hyperventilating, in acute distress , on oxygen mask. HEENT: Normocephalic, atraumatic. Oropharynx mildly dry with pink mucosa Neck: No jugular venous distension. Cardiovascular: tachycardia with normal rhythm, no murmur appreciated, pacemaker palpable in upper chest Pulmonary: Clear to auscultation bilaterally with no crackles, wheezes, or rhonchi. Hyperventilating with accessory muscle use. Abdomen: Bowel tones are hyperactive. Abdomen is soft but obese. no guarding or rebound, no rashes noted, nondistended. Extremities: no cyanosis, clubbing, or edema. Warm to touch. Skin: Some mild confluent chronic vascular changes of bilateral forearm, skin is otherwise warm dry and intact with somewhat decreased turgor Neurological: lethargic, open eyes upon verbal command, nonverbal, unable to assess the rest of the exam. IVs and Medications Medications Reviewed: Medications were reviewed in detail Lab and Diagnostics Result Diagram: 09/13/16 0930 09/13/16 0910 X-Rays, CTs and MRIs PROCEDURE: CT ABDOMEN AND PELVIS WITH CONTRAST ([id number]) IMPRESSION: 1. Small amount of nonspecific intraperitoneal free fluid in the right paracolic gutter and subhepatic space redemonstrated, similar to the prior study. No loculated abscess collection identified. 2. No evidence of pyelonephritis, hydronephrosis, or perinephric abscess. 12-lead ECG V-paced EKG with no acute St changes. 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 DKA, new, active. - Patient presented with abdominal pain, nausea, and vomiting on admission. - Patient's BG rapidly increased from 125 at admission to 1046. Blood gas reveald pH 6.9 and Bicarb of 3.5. Large serum ketone. Lactic acid of 5.2. Anion gap of 33. - DKA protocol with insulin drip and NS @1000ml/hr. Judicious hydration given her EF of 25%. - Check BG every hour and once the gap closes (less than 12) and BG reaches 200 , will start weaning off the insulin drip and start SC insulin. Will continue insulin drip for 2 hours after initiation of SC insulin. - BMP Q4H. Monitor K and replete as needed to keep around 4-5 range. - Close monitor in the CCU. Appreciate the CCU team's input. - Currently saturating well at room air. Will consider intubation if patient's respiratory status worsens. RLQ Abdominal Pain, POA, active. - Exact etiology is unclear. Patient has had persistent RLQ abdominal pain at the last hospitalization with unknown etiology. Her CT abdo showed a small amount of nonspecific intraperitoneal free fluid in the right paracolic gutter and subhepatic space redemonstrated, similar to the prior study. No loculated abscess collection identified. - Possibly due to progressing DKA. - WBC increased from 6.2 to 26.7 overnight. Procalcitonin 1.28. However, no other evidence of infections. - Infectious disease consulted and will watch the patient with no antibiotics now. Will initiate antibiotics if evidence of infection arise. - Will check C. diff if patient develops diarrhea as she was on antibiotics recently. - Patient also has a history of endometriosis and large uterine fibroids. She is s/p right oophorectomy and appendectomy. - Will follow clinically for any progression of symptoms. May need outpatient gynecology follow up. Systolic CHF, chronic, stable. - Last Echo in June 2016 showed EF to be 25-30% - No signs or symptoms of fluid overload or decompensation. - Continue home spironolactone, Lisinopril, and Metoprolol. Will also resume Lasix once she resumes PO diet. - Closely monitor I/Os Type I diabetes mellitus with diabetic polyneuropathy, uncontrolled. - Patient is a brittle diabetic who is fairly uncontrolled. A1c at the last visit was 11.1. - DKA protocol as above. CAD of a [place] artery, POA - Stable, no anginal symptoms on admission - Continue home medications: Lipitor, Lisinopril, and ASA. - Patient is also on Eliquis for PEs, although only once a day dosing. May need to verify dosing. Complete heart block s/p pacemaker, POA - V-paced, stable - Placed on Telemetry for CV monitoring Chronic Mood Disorders, POA - History of PTSD, DAISY, and Depression - will continue Amitriptyline 25 mg takes 2-4 tablets by mouth at bedtime, Ativan 1 mg QID PRN - We will continue Venlafaxine ER 150 mg daily when she resumes PO intake. Dyslipidemia, chronic. - Continue Atorvastatin 80 mg tablet daily Chronic pain disorder, POA - Secondary to degenerative disease of Lumbars - Currently has PO morphine for pain management Hypothyroidism with history of Graves' disease - TSH 4.8 with a low T4 of 0.65. Patient takes Levothyroxine 250 g daily at home. - Will consider increasing to 275mcg when the patient is no longer NPO. Chronic GERD - Continue Pantoprazole 40 mg 2 times daily. Tylenol for fever as needed Bowel regimen for constipation as needed CODE STATUS: Full resuscitation Patient is admitted under observation status with expected length of stay less than 2 midnights due to severity of presenting symptoms, risk of adverse event, and complexity of treatment plan. Pain Evaluation: Adequate Pain Control GI Prophylaxis: Proton Pump Inhibitor VTE Prophylaxis: Other (Eliquis) Resuscitation Status: CPR: Attempt Resuscitation Tanmay Logan DO Sep 13, 2016 11:29
--- NOTE | 2016-09-13 11:29 | NUR ---
Case Management: Clarification of patient status: inpatient per MD order on 09/13/16. Rena Paris RN
[2016-09-13] MEDS ORDERED: Levothyroxine 100 mCg/5 mL Inj IV ONE (12:00)
--- NOTE | 2016-09-13 12:29 | CONS ---
[address] [address] CONSULTATION REPORT PATIENT: KAYLEE TURNER : 1980 MR#: [id number] ADMIT: 09/12/2016 JOB ID: [id number] DATE OF SERVICE: 09/13/2016 INFECTIOUS DISEASE CONSULTATION: I thank Dr. Lio Viramontes for this timely consultation. REASON FOR CONSULTATION: DKA in a patient with history of multiple recent serious infections. HISTORY OF THE PRESENT ILLNESS: The patient is an extremely unfortunate 36-year-old woman known to me from a series of admissions over the past year. Recall that this is a woman with type 1 diabetes and many attendant complications who I first met back in the spring of this year. Her problems started off when she developed a complete heart block after an ablation for SVT early this year. She required a pacer of course for the complete heart block. Subsequent to that she developed an MSSA bacteremic perinephric abscess infection which required prolonged drainage of the perinephric abscess plus very prolonged courses of antibiotics. Though we could not demonstrate that the pacer was infected by AJIT, both Dr. Del Valle of Cardiology and I felt that it was reasonable to remove her initial pacer, thinking it may have been contaminated or infected by her high-grade MSSA bacteremia. Her pacer was removed, a temporary pacer inserted for two weeks, and then a new permanent pacer placed in the right upper chest. Subsequent to that the patient was discharged and completed a very long course of antibiotics with apparent resolution of all infections. Earlier this month the patient was readmitted once again with progressive shortness of breath with ambulation and lightheadedness. It was thought that this was likely of cardiac origin but there was also concern about a possible recrudescence of her perinephric abscess. At that point the patient was carefully cultured including many blood cultures which were negative. Additionally we repeated an abdominal CT scan which showed that the perinephric abscess appeared to be gone and there was an infrahepatic small fluid collection of uncertain etiology that had been present since at least June. Given the lack of diagnosis of this fluid collection we did a needle aspirate of the perihepatic fluid collection and this proved to be sterile. At the end of her admission earlier this month we felt there was no evidence of infection and she was discharged without antibiotics on or about September 06. The patient then apparently did well until yesterday, when she was admitted with crampy right lower quadrant abdominal pain, headache, nausea, vomiting, malaise, and progressive weakness. The main problem seems to be the fairly sudden onset of intractable nausea and vomiting. She denied fever in the ER when she was admitted yesterday. During the hours since her admission yesterday and this morning, the patient has developed fairly severe DKA with profound acidosis and blood sugars which have jumped to over 1000, requiring ICU admission but not intubation. This morning we are asked to evaluate to see whether infection may be causing part of this decompensation. The patient is seen this morning in the ICU. She is awake and will open her eyes to voice or stimulation but is really too short of breath and too ill to speak. She seems aware but does not answer any questions yes or no and thus we have almost no additional history. Her father, with whom she lives, states that the problem leading up to admission was really just nausea and vomiting with some abdominal pain. There has been no mention in the record at least of fever, chills, or symptoms consistent with infection. PAST MEDICAL HISTORY: 1. Type 1 diabetes. 2. Organic heart disease. a. Coronary disease. b. Complete heart block, requiring pacer. c. Mitral valve insufficiency. d. Pacer infection 2016, with explantation and reimplantation of pacer. 3. Perinephric abscess with associated MSSA bacteremia June 2016. 4. Hypothyroidism due to Graves disease. 5. Diabetic neuropathy. 6. Generalized anxiety disorder. 7. Status post appendectomy, cholecystectomy, and right oophorectomy. SOCIAL HISTORY: The patient is a nonsmoker, nondrinker. Lives with her dad on [facility]. She has a boyfriend in [place] who she visits. FAMILY HISTORY: Negative for TB but her brother of complications of diabetes. REVIEW OF SYSTEMS: Is not possible today. The patient is profoundly short of breath. Though awake, she cannot speak or answer questions. PHYSICAL EXAMINATION: Reveals a woman with a classic physical appearance of someone with severe acidosis. She is inspiring at least 40 times a minute and these are huge respiratory efforts. She is in obvious respiratory distress but this is not really respiratory and rather driven by her metabolic issues. She has been afebrile during her brief hospital stay, currently 36.7. Pulse is 113, respiratory rate probably 35-40, blood pressure 121/64. She is not on vasopressor agents. Her head is without trauma. No temporal wasting. Eyes without conjunctivitis. Oral cavity with dry mucous membranes. No thrush or hairy leukoplakia. Neck without obvious adenopathy or stiffness. Lungs clear. Cardiac tones tachycardic but without overt murmur. She has a pacer in the right upper chest which appears benign. On her right breast she has two lesions above the nipple that are excoriated dried lesions. There is no warmth or tenderness to these lesions, nor any surrounding cellulitis, but the exact nature of how they started off cannot be ascertained. Her breasts bilaterally though were nontender and without mass. Her cardiac tones are regular rate and rhythm. She has a paced rhythm interestingly to 130 as she has a demand type pacemaker. Pacer in the right upper chest feels benign. The incisions from both the left and the right pacer appear benign. The patient has no organomegaly that I can appreciate, specifically no hepatosplenomegaly. Her abdomen is a bit doughy but soft and apparently nontender as she is awake and presumably would respond if it were painful. She has a Thomason catheter. Also, under a small abdominal pannus, there is an area consistent with candidal inflammation with erythema and a few satellite lesions but no purulence or skin breakdown per se. The lower extremities are reasonably well perfused, though the feet are a little cool. Peripheral pulses are intact. There is no evidence of synovitis or cellulitis involving the extremities. Neurologically she can move everything but she is doing everything she can just to lie still and breathe heavily. LABORATORIES: Include white count which was 6000 when she came in and a normal diff. This morning her white count is 27,000 with 85% segs but she is in DKA. Sed rate 56. Creatinine is 1.3 this morning; it was 0.84 when she came in yesterday. Lactic acid is an impressive 5.2. AST and ALT are normal. Alk phos 182. Albumin 3.3. Procalcitonin 1.28 and that represents a jump. Urinalysis without white cells yesterday. Urine ketones today large, positive. Micro-quigley we have negative blood cultures from yesterday evening. Otherwise no growth. IMAGING: Includes two chest x-rays which were done. Today these were reviewed personally on the computer and are clear. One does see the pacer in the right upper chest, which looks benign as well. An abdominal CT scan was also done since admission which shows a small amount of intraperitoneal free fluid in the right pericolic gutter and adjacent to the liver at the inferior aspect which is similar to the CAT scans done in June and earlier this month. No evidence of perinephric abscess, pyelonephritis, hydronephrosis. IMPRESSION: Once again I do not think the patient has an infection. Recall that in her admission earlier this month there were questions raised about systemic infection and a big workup was negative. We still have on CT scan the infrahepatic fluid collection but it is unchanging and was sampled with cultures last admission two weeks ago and was negative so I do not think that it is infected. The only concern I would have about infection driving this current process is her elevated procalcitonin. This has been normal on prior admissions, including one earlier this month, and is now greater than one, but that could reflect changes due to her diabetic ketoacidosis, and without other evidence of infection such as fever, left-shifted white count on admission, positive urinalysis, abnormal chest x-ray or CT, for example, I would not feel compelled to offer antibiotics at this time. RECOMMENDATIONS: 1. After a long discussion with Dr. Viramontes, and a careful review of all the facts this case, I think it is reasonable to watch the patient without antibiotics. 2. Should evidence of infection arise I think we could go ahead and cover her broadly with antibiotics that would cover MSSA, taking into account her multiple drug allergies. 3. Note that I will be out of town the next three days, returning on September 17. Thank you very much.
--- NOTE | 2016-09-13 12:35 | NUR ---
NUTRITION ASSESSMENT: ASSESS:36 YO female admitted with crampy right lower quadrant abdominal pain, headache, nausea, vomiting, malaise, and progressive weakness. The main problem seems to be the fairly sudden onset of intractable nausea and vomiting. Early this morning, patient complained of severe RLQ abdominal pain that was not relieved with Dilaudid. She soon developed hyperventilation and her ABG showed pH of 6.9 with bicarb of 3.5; blood glucose >1000. She was then transferred to CCU for possible intubation and higher level of care. She is currently somnolent and is being closely monitored for potential respiratory failure. PMHx:Type 1 diabetes, organic heart disease, CAD, complete heart block requiring pacemaker, mitral valve insufficiency, pacemaker infection 2017 requiring replacement pacemaker, perinephric abscess with associated MSSA (06/17), hypothyroid due to Graves disease, neuropathy, generalized anxiety disorder, CHF, PE / DVT's, aspirated liver cyst, medication noncompliance. DIET:NPO. LABS: Reviewed. CO2 3, Cr 1.30, Glu 770, Osm 358, Lactic Acid 5.2, Ca 7.8, Phos 6.0, Alk Phos 182, alb 3.3, Procalcitonin 1.28, TSH 4.830, Free T4 0.65. MEDICATIONS: Reviewed. Levothyroxine, lasix, insulin. NUTRITION FOCUSED PHYSICAL ASSESSMENT: GI symptoms / stool: No stool reported.Braydon: None documented. Skin Integrity: No issues reported. ANTHROPOMETRICS: Current Wt: 90.6 kgBMI: 34.3 kg/m2.Admit weight: 92.0 kg. IBW: 54.5 kg (168.7% IBW) ESTIMATED NEEDS (CLASS 1 OBESITY): Calories: 1364 - 1636 kcal (25 - 30 kcal / kg IBW) Protein: 98 - 109 g protein (1.8 - 2.0 g / kg IBW) Fluid: Approx. 2300 mL (25 mL / kg BW) NUTRITION DIAGNOSIS: 1)Altered nutrition-related labs related to DKA, respiratory failure, as evidenced by glucose 770, large amount serum ketones, lactic acid 5.2. INTERVENTION: 1) No intervention at this time. 2) In the event patient requires intubation, will provide enteral feeding recommendations appropriately. MONITOR/EVALUATE: Diet advance / tolerance, PO intake, labs, GI/nutrition status. Follow up per high nutrition risk guidelines.
--- NOTE | 2016-09-13 13:06 | CONS ---
[address] [address] CONSULTATION REPORT PATIENT: KAYLEE TURNER : 1980 MR#: [id number] ADMIT: 09/12/2016 JOB ID: [id number] DATE OF SERVICE: 09/13/2016 EMERGENT PULMONARY CRITICAL CARE CONSULTATION: REQUESTING PHYSICIAN: Elizabeth Juan MD REASON FOR CONSULTATION: Dyspnea and loss of consciousness. HISTORY OF PRESENT ILLNESS: The patient is a 36-year-old female admitted yesterday because of complaints of abdominal pain. The patient currently is barely responsive and unable to give a history. According to the patient's father she has had some ongoing abdominal pain, right lower quadrant according to the chart. In the past 24 hours however she has had problems with nausea and vomiting. Unable to keep down any liquids whatsoever; even sips of water caused her to vomit. There has been apparently some abdominal pain. One note indicates that she was taking her oral morphine to control the pain the day of admission. Other notes, however, stated that the abdominal pain had resolved and recurred the day of admission. In any case, she was admitted. This morning was found to be extremely tachypneic but also unresponsive. She was transferred to the intensive care unit. Here she was minimally responsive to pain. Her respiratory rate was about 40, Kussmaul type in character. It was felt that she would do better without intubation than with intubation. Sugars were extremely high. Unable to obtain any blood for analysis other than fingersticks. Was started on saline IV wide open and given IV insulin 10 units of regular IV push. The patient's history dates back to March of this year. Underwent ablation for SVT. Unfortunately this resulted in complete heart block. Pacemaker placed. Subsequently had a perinephric abscess. Grew methicillin sensitive Staph aureus. Because of the concerns regarding the pacemaker leads, pacemaker was removed. She was continued on antibiotic therapy and a 2nd pacemaker subsequently placed a few weeks later. Repeat evaluations of the perinephric abscess have shown no evidence of recurrent infection. It should be noted that the perinephric abscess was drained. Subsequently had a set of blood cultures growing Staph coag-negative. Because of concern about infection, the course of antibiotics was extended due to the Staph epidermidis. History is complicated by DVT with a small pulmonary embolism. Found to have cardiomyopathy. Additionally, chart notes indicate she was has some mitral valve insufficiency, hypothyroidism secondary to Graves, and coronary artery disease. No other history currently available. We will be contacting the patient's family to elaborate on the current events. PHYSICAL EXAMINATION: General appearance: Minimally responsive. Kussmaul type of breathing. Respiratory rate 40, pulse about 140, blood pressure 121/64. Eyes: Conjunctivae are pink. Pupils about 3 mm and reactive. Nose and throat could not be examined. Chest: Clear anterolaterally. Heart: Rapid rate. Heart tones seem normal. Monitor shows pacemaker spikes. Pacemaker pocket is without erythema or fluctuance. Abdomen is soft, nondistended. No apparent tenderness. Quiet. Extremities: No peripheral edema. Feet are a bit cool, as are fingertips, but otherwise she is relatively warm. Skin has two small maybe 0.5 cm "scabs" with some mild surrounding erythema on the chest just above her right breast. No other skin lesions were noted. LABORATORY DATA: On admission showed a white count of 6200 with a normal differential. Hemoglobin 12.9. Platelet count 270,000. Sodium 136, potassium 4.2, chloride 97, CO2 is 12, BUN 14, creatinine 0.8, glucose 125. Lactic acid 1.6. Calcium 10.2 with an albumin of 4.3. Total bilirubin 0.4. AST normal at 14. ALT 11. Alkaline phos moderately elevated at 217, with upper limits of normal being 150. Lipase is 11. TSH is mildly elevated at 5.5, upper limits of normal being 4.5. HCG is negative. Digoxin level was undetectable. Urine has a specific gravity of 1.020, glucose of 500, ketones of 15. Blood cultures x2 are pending. HOSPITAL COURSE: The patient had a 21-gauge IV in the left antecubital fossa. Saline was started wide open. Fingerstick glucose was too high to read. The patient was evaluated with anesthesia. It was felt that she was ventilating better than she would with intubation and mechanical ventilation. Decision made to let her continue on apace. Because of the inability to draw blood, as well as to administer fluids at a rapid rate, she was evaluated for PICC line. Unable to find an accessible vein. Therefore a right IJ was placed with great difficulty, requiring assistance of anesthesiologist after multiple attempts were unsuccessful in cannulating the vein. Finally the vein was cannulated. It was noted that the blood return was extremely thick and clotted almost as it was drawn. Subsequent to continued fluid resuscitation the blood has not been spontaneously clotting. First repeat blood work this morning at about 9:30, after venous access was finally accomplished, showed a white count which has gone from 6200 to 26,700, with a moderate neutrophilia with 85 polymorphonuclears, no bands, 5 lymphocytes. Hemoglobin 11.8, down from 12.9. Platelet count 341,000, up from 270,000. Sodium 144, potassium 5, chloride 108, CO2 is 3, BUN 19, creatinine 1.3. Glucose was 1046 and subsequently 770. Osmolality was 358. Lactic acid was 5.2. Calcium 7.8 with an albumin of 3.3. Phosphorus 6, magnesium 2.2. Total bilirubin 0.2, AST 18, ALT 10. Alkaline phos 182, mildly elevated from upper limits of normal value of 150. Procalcitonin 1.28. TSH 4.8. Free T4 is 0.65, which is mildly reduced, the lower limit of normal being 0.82 ng/dL. Urine ketones are described as large. Currently, after about 4 L of normal saline, heart rate has decreased to 121, blood pressure 138/51. Respiratory rate is about 33. The patient is now responsive to verbal stimuli, though makes no reasonable attempt at response. Kussmaul breathing seems to be abating, with shallower breaths. O2 on 2 L by OxyMask is 100%. Venous gases on 2 L by OxyMask show a pH of 6.97. O2 sat is 80%. ASSESSMENT: 1. Diabetic ketoacidosis. The patient is extremely brittle. She did have a gap on admission. This has certainly worsened, but will hopefully respond to fluids and insulin. Seems to be better as far as her mental status. Pulse is coming down. Respiratory rate decreasing, hopefully not from fatigue. However, that remains to be seen. Will discuss with respiratory therapy the use of capnography, though I do not know that will be particularly helpful as we expect her CO2 to slowly rise, with current CO2 on mixed venous gas being 16. 2. Abdominal pain. Not sure what that is all about. Will have to reassess the situation when she is more awake. Right now the bulk of our efforts are directed towards the severe diabetic ketoacidosis (DKA). Possibly that will explain the situation completely as, even though her sugar was only 125 on admission, her anion gap was 27. 3. Pacemaker dependent complete heart block. She seems to have an AV sequential pacemaker with the ventricular pacer responsive to the atrial rate. Seems to be doing reasonably well at this point. Heart rate slowing with the fluid resuscitation. Subsequently spoke to the patient's father. He indicates that the patient's abdominal pain present on admission September 02, 2016 never really resolved. However, a CT scan done yesterday on the shows no change in her abdominal CT findings when compared to study of September 02, 2016, with only a small amount of nonspecific intraperitoneal free fluid in the right paracolic gutter. No loculated abscess collection identified. No evidence of perinephric abscess or any other abnormalities. He does indicate that she was unable to keep down any food or fluid. Not sure whether she was taking her insulin or not. States she was having bowel movements up until recently. PLAN: 1. Saline wide open to fluid resuscitate her. Currently having a significant osmotic diuresis, having put out 1300 mL in the last 2 hours. 2. Insulin infusion. Do not think we need to continue with the insulin pushes now that we have reasonable venous access and are able to get blood samples for analysis. 3. Insulin protocol with close monitoring of lytes. 4. Once awake will need to reevaluate abdominal pain issues. 5. Blood and urine cultures have been sent. Urine does not suggest a urinary tract infection and therefore culture is not warranted. Blood cultures are pending. 6. Given her past history, there was concern about infection. Do not really see the need for antibiotics at this point. Will discuss with Infectious Disease. The chest x-ray is clear. Blood cultures are pending. Abdominal CT is relatively normal. There has been no history of a respiratory tract infection preceding this. 7. SCDs. Once the situation is clearer, will start subcu heparin. Will need to check when she last took her Eliquis. Notes say she takes it on a p.r.n. basis. Not sure exactly what that means. 8. Multiple admission orders discontinued. TIME: Time spent so far in critical care 3 hours.
[2016-09-13] MEDS ORDERED: POTASSIUM PHOS IV ONE (13:30)
[2016-09-13] MEDS ORDERED: DEXTROSE 5% IV ONE (13:30)
[2016-09-13] MEDS ORDERED: Dextrose 5% 1,000 ML IV SCH ×2 (13:35→17:28)
[2016-09-13] MEDS ORDERED: Potassium Phos (mEq) Inj 20 MEQ in Dextrose 5% 250 ML IV ONE (13:40)
[2016-09-13] MEDS ORDERED: KCl 40 mEq/100 mL (CENTRAL) 40 MEQ in IV Premix 1 EACH IV ONE (14:00)
[2016-09-13] MEDS ORDERED: Insulin Human REGular Inj 100 UNIT in 0.9% Sodium Chloride-Pha MIX 100 ML IV PRN (14:21)
[2016-09-13] MEDS ORDERED: Dextrose 10% 1,000 ML IV PRN (14:45)
--- NOTE | 2016-09-13 15:34 | NUR ---
Social Work: Screen/Multidisciplinary Rounds D: Per EMR review, pt is a 36 year old female admitted for abdominal pain, nausea, vomiting. Pt is [employer] insurance. PCP is Arielle Aguilar DO. NOK is pt's father Eddi Dan. Advanced directives con completed- pt not appropriate to receive information at this time. Pt discussed in am rounds. Pt is currently in CCU. Pt is unresponsive at this time experiencing somnolence. Pt screened in for CM assessment due to multiple providers involved in care. Pt's father was here at bedside this morning but is not currently present. COVERED BUCKLE ASSEMBLER attempted to complete assessment via t/c with father however there was no answer. COVERED BUCKLE ASSEMBLER requested return phone call to discuss dcp. A: Pt who is currently admitted to CCU. P: Evolving; COVERED BUCKLE ASSEMBLER to follow up with pt and/or family to complete IA. DAYLIN Harris
[2016-09-13] MEDS ORDERED: Insulin GLARgine 100 Unit/mL Syringe SUBQ SCH (17:30)
[2016-09-13] MEDS ORDERED: Dextrose 5% 0.45% NaCl 1,000 ML IV SCH (17:30)
[2016-09-13] MEDS: Heparin 5,000 Unit/mL Inj SUBQ SCH (17:41)
--- NOTE | 2016-09-13 18:36 | NUR ---
D[place].. [place] [facility] [place] NURSE MIDWIFE/CLINICAL INSTRUCTOR response. Pt unresponsive on arrival with Kusmall breathing. Blood glucose check per lab revealed a sugar of 1046. Pt given stat IVP insulin and started on DKA protocol with NS fluids wide open. #16 fr cordero placed. MD's at the bedside and Central line placed to [facility]. Pt's father reached by phone and he was able to come to see pt. Pt has been increasingly more wakeful and is now conversant and able to take sips of water and ice. UOP has been brisk and blood glucose and anion gap are normalizing. Will start Subq insulins and transition off the insulin DKA protocol.
[2016-09-14] MEDS: Heparin 5,000 Unit/mL Inj SUBQ SCH ×3 (00:03→17:31)
[2016-09-14] MEDS ORDERED: Insulin Human REGular 300 Unit/3 mL Inj SUBQ ONE (01:25)
[2016-09-14] MEDS: 0.9% Sodium Chloride 1,000 ML IV SCH ×2 (02:05→14:58)
[2016-09-14] MEDS ORDERED: Meropenem Inj 2,000 MG in 0.9% Sodium Chloride 100 ML IV ONE (02:20)
[2016-09-14 04:05] VITALS: BP 125/65; PULSE 93; RESP 23; O2SAT 100
--- NOTE | 2016-09-14 04:24 | PCM.PNMED ---
Subjective Date of Service Sep 14, 2016 Subjective Overnight the patient began to complain of headaches with neck pain made worse with neck flexion and knee flexion. The patient subsequently also had a positive blood culture with gram positive bacilli. Exam Vital Signs Vital Sign - Last Date Time Temp Pulse Resp B/P Pulse Ox O2 Delivery O2 Flow Rate FiO2 09/13/16 23:40 36.9 109 18 143/72 100 Room Air 09/13/16 12:00 3.00 Intake and Output 09/13/16 09/13/16 09/14/16 Cumulative From/Thru 15:00 23:00 07:00 09/12/16 17:51 - 09/13/16 18:34 Intake Total 6232 ml 6232 ml Output Total 1800 ml 1800 ml Balance 4432 ml 4432 ml Intake IV Total 6232 ml 6232 ml Output Urine Total 1800 ml 1800 ml Exam General: Obese female, in mild acute distress due to headache pain Eyes: PERRLA, EOMI HENT: Oropharynx clear with moist mucous membranes without central cyanosis Neck: No jugular venous distension. Cardiovascular: tachycardia with normal rhythm, no murmur appreciated, pacemaker palpable in upper chest Pulmonary: Clear to auscultation bilaterally with no crackles, wheezes, or rhonchi. Abdomen: Bowel tones are hyperactive. Abdomen is soft but obese. no guarding or rebound, no rashes noted, nondistended. Extremities: no cyanosis, clubbing, or edema. Warm to touch. Skin: Warm and dry Neurological: Nonfocal neurologic exam. Positive Brudzinski's and Kernig's sign. Psych: Appropriate mentation but delayed Lab and Diagnostics Result Diagram: 09/13/16 0930 09/14/16 0005 X-Rays, CTs and MRIs PROCEDURE: CT ABDOMEN AND PELVIS WITH CONTRAST ([id number]) IMPRESSION: 1. Small amount of nonspecific intraperitoneal free fluid in the right paracolic gutter and subhepatic space redemonstrated, similar to the prior study. No loculated abscess collection identified. 2. No evidence of pyelonephritis, hydronephrosis, or perinephric abscess. 12-lead ECG V-paced EKG with no acute St changes. 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 # Gram-positive bacilli bacteremia - Given patient's abdominal pain with nausea and vomiting most consistent with possible Listeria - Less likely diphtheria as the patient is not having a sore throat and fever, less likely bacillus cereus or clostridium difficile as the patient is not having diarrhea - stool CDiff ordered given recent administration of antibiotics, however the patient is not having diarrhea or significant abdominal pain and fever consistent with toxic megacolon - Unfortunately given night staffing unable to obtain a lumbar puncture to definitively diagnose Listeria meningitidis prior to administration of appropriate antibiotics - Patient is allergic to sulfa as well as amoxicillin making Bactrim or ampicillin use contraindicated - Meropenem 2 g every 8 however review of literature indicates that some Listeria infections failed to respond to meropenem, so no pain medications to be given to monitor for improvement in headache with antibiotic administration only - This case was discussed with the overnight hospitalist who agreed with the above plan # Acute diabetic ketoacidosis, not present on admission - Patient's anion gap closed long-acting insulin was given and 2 hours later insulin drip discontinued however patient remained on D5 half-normal saline and subsequent anion gap increased to 21 with glucose of 337 - 10 units subcutaneous insulin given will recheck sugars after a few hours GI Prophylaxis: Proton Pump Inhibitor VTE Prophylaxis: Other (Eliquis) VTE Mechanical Devices: Intermittant Pneumatic CD Resuscitation Status: CPR: Attempt Resuscitation Attending Statement The patient was seen and examined together with Dr. Marino on 09/14/2016 and I agree with the history, exam and plan as outlined in the note above. Ramiro Marino DO Sep 14, 2016 04:24 Lio Viramontes MD Sep 28, 2016 16:20 - Placed on Telemetry for CV monitoring Chronic Mood Disorders, POA - History of PTSD, DAISY, and Depression - will continue Amitriptyline 25 mg takes 2-4 tablets by mouth at bedtime, Ativan 1 mg QID PRN - We will continue Venlafaxine ER 150 mg daily when she resumes PO intake. Dyslipidemia, chronic. - Continue Atorvastatin 80 mg tablet daily Chronic pain disorder, POA - Secondary to degenerative disease of Lumbars - Currently has PO morphine for pain management Hypothyroidism with history of Graves' disease - TSH 4.8 with a low T4 of 0.65. Patient takes Levothyroxine 250 g daily at home. - Will consider increasing to 275mcg when the patient is no longer NPO. Chronic GERD - Continue Pantoprazole 40 mg 2 times daily. Tylenol for fever as needed Bowel regimen for constipation as needed CODE STATUS: Full resuscitation Patient is admitted under observation status with expected length of stay less than 2 midnights due to severity of presenting symptoms, risk of adverse event, and complexity of treatment plan. GI Prophylaxis: Proton Pump Inhibitor VTE Prophylaxis: Other (Eliquis) VTE Mechanical Devices: Intermittant Pneumatic CD Resuscitation Status: CPR: Attempt Resuscitation Ramiro Marino DO Sep 14, 2016 04:24
--- NOTE | 2016-09-14 05:14 | ABG ---
DateTimeAnalyzed 05:08:00 -_ pH ____7.301 - pCO2 ___27.5__ -mmHg pO2 ___32.5__ -mmHg HCO3- ___13.2__ -mmol/L ABE __-11.7__ -mmol/L tHb ___10.4__ -g/dL O2Hb ___61.7__ -% COHb ____1.8__ -% MetHb ____0.7__ -% sO2 ___63.3__ -% FIO2 ___21.0__ -% Drawn By ___AMY,RN - Date/Time Notified____ 05:14:00 -_ Notified By MM - Notified Whom __AMY, RN - B 761 -mmHg tO2 ____9.0__ -Vol% Gonzalez test N/A -
[2016-09-14 05:23] LABS: BASOPHILS % (AUTO) 0.2 % (0-3); EOSINOPHILS % (AUTO) 0.1 % (0-5); MONOCYTES % (AUTO) 7.1 % (4-12); Mean Corpuscular Hemoglobin 28.6 pg (27.0-35.0); Mean Corpuscular Volume 89.7 fL (81-100); NEUTROPHILS % (AUTO) 81.1 % (40-74); Platelet Count 172 bil/L (150-400)
[2016-09-14 05:53] LABS: Magnesium 1.5 mg/dL (1.6-2.6); Phosphorus 1.7 mg/dL (2.5-4.9)
[2016-09-14] MEDS: Insulin LISPRO 300 Unit/3 mL Inj SUBQ SCH (06:44)
--- NOTE | 2016-09-14 07:24 | NUR ---
Hyperglycemia/Micro/lab/pain Pt was on insulin gtt(dka protocol) transitioned to insulin subq, maintenance fluid changed to D5 1/2 NS @ 80/hr. Anion gap was 13,21,20 @ 2000/2400/0500. FSBG 300's covered with lispro. IVF changed to NS @ 80/hr. Pt c/o back pain (ongoing), per pt head and neck are new pain, given morphine IV prn which helps alleviate pain. +blood cx on 1 bottle (aerobic), new set of bld cx drawn and started on abx meropenem.
[2016-09-14 07:47] VITALS: BP 109/55; PULSE 92; PULSE 93; RESP 18; O2SAT 100
--- NOTE | 2016-09-14 08:11 | DRSVH ---
PROCEDURE: X-RAY CHEST ONE VIEW, PORTABLE ([id number]) INDICATIONS: DKA TECHNIQUE: One view of the chest was acquired. COMPARISON: [facility], CR, XR CHEST 1VW (PORTABLE), 09/13/2016, 8:54. FINDINGS: Surgical changes and devices: Dual-lead pacemaker from the left with leads unchanged since previous x -ray. air sampling and monitoring leads are seen over the chest. Lungs and pleura: No pleural effusions or pneumothorax. Lungs are clear. Mediastinum: Mediastinal contours appear normal. Heart size is normal. Bones and chest wall: No suspicious bony lesions. Overlying soft tissues appear unremarkable. IMPRESSION: No acute disease is seen in the upright portable chest. Dictated by: Eddi Constantino M.D. on 09/14/2016 at 8:08 Approved by: Eddi Constantino M.D. on 09/14/2016 at 8:09
[2016-09-14] MEDS: Pantoprazole 40 mg ER24 Tablet PO SCH ×2 (08:12→18:13)
[2016-09-14] MEDS: MeTOProlol XL 50 mg ER24 Tablet PO SCH ×2 (08:12→20:46)
[2016-09-14] MEDS: Venlafaxine XR 75 mg ER24 Capsule PO SCH (08:13)
[2016-09-14] MEDS: Nystatin 100,000 Unit/Gm 15 Gm Powder TOPICAL SCH ×2 (08:13→20:46)
[2016-09-14] MEDS: Sodium Chloride LOK Flush 10 mL Syringe IVFLUSH PRN ×2 (08:17→08:18)
[2016-09-14] MEDS: Meropenem Inj 2,000 MG in 0.9% Sodium Chloride 100 ML IV SCH ×2 (11:14→18:14)
[2016-09-14 12:00] VITALS: BP 128/66; PULSE 98; RESP 22; O2SAT 99
[2016-09-14] MEDS ORDERED: Insulin Human REGular 300 Unit/3 mL Inj IV PRN (12:25)
[2016-09-14] MEDS ORDERED: D5W1/2NS 1,000 mL IV PRN (12:25)
--- NOTE | 2016-09-14 12:59 | PCM.PNMED ---
Subjective Date of Service Sep 14, 2016 Subjective pt is clinically doing better, denied abd pain, still looked very weak denied HERNADEZ, still has AG21 this AM, lactate normalized, insulin gtt restarted for DKA pt has poor appetite, diet was ordered Exam Vital Signs Vital Sign - Last Date Time Temp Pulse Resp B/P Pulse Ox O2 Delivery O2 Flow Rate FiO2 09/14/16 12:30 93 09/14/16 07:47 36.8 18 109/55 100 Room Air 09/13/16 12:00 3.00 Intake and Output 09/13/16 09/13/16 09/14/16 Cumulative From/Thru 15:00 23:00 07:00 09/12/16 17:51 - 09/14/16 05:23 Intake Total 6232 ml 2120 ml 8352 ml Output Total 1800 ml 950 ml 2750 ml Balance 4432 ml 1170 ml 5602 ml Intake Oral 736 ml 736 ml IV Total 6232 ml 1384 ml 7616 ml Output Urine Total 1800 ml 950 ml 2750 ml # Bowel Movements 0 0 Exam NAD, comfortably laying down on the bed no JVD, MMM, no LAD RRR, nl s1, s2 no mrg CTAB, no w,c S,ND,diffuse tenderness,normoactive BS+ warm, no edema, pulses 2/2 IVs and Medications Medications Reviewed: Medications were reviewed in detail Lab and Diagnostics Result Diagram: 09/14/1651409/14/16514 X-Rays, CTs and MRIs PROCEDURE: CT ABDOMEN AND PELVIS WITH CONTRAST ([id number]) IMPRESSION: 1. Small amount of nonspecific intraperitoneal free fluid in the right paracolic gutter and subhepatic space redemonstrated, similar to the prior study. No loculated abscess collection identified. 2. No evidence of pyelonephritis, hydronephrosis, or perinephric abscess. 12-lead ECG V-paced EKG with no acute St changes. 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 acute, active DKA in the setting of Brittle [id number], POA, Patient presented with abdominal pain, nausea, and vomiting on admission.Patient's BG rapidly increased from 125 at admission to 1046. Blood gas reveald pH 6.9 and Bicarb of 3.5. Large serum ketone. Lactic acid of 5.2. Anion gap of 33. DKA protocol with insulin drip started and NS @1000ml/hr. Judicious hydration given her EF of 25%. -pt is clinically improved, however, given still remaining AG, will continue DKA protocol, CMP q4h-6h, continue D5 1/2ns per protocol, replete K,Mg RLQ Abdominal Pain, POA, unclear etiology,CT abdo is equivocal, a small amount of nonspecific intraperitoneal free fluid in the right paracolic gutter and subhepatic space redemonstrated, similar to the prior study. No loculated abscess collection identified. Possibly due to progressing DKA. WBC increased from 6.2 to 26.7 overnight. Procalcitonin 1.28. However, no other evidence of infections. -abdominal pain seems to resolving as DKA clears up today. - Infectious disease consulted and will watch the patient with no antibiotics now, however, started abx as below - Will check C. diff if patient develops diarrhea as she was on antibiotics recently. - Patient also has a history of endometriosis and large uterine fibroids. She is s/p right oophorectomy and appendectomy. - Will follow clinically for any progression of symptoms. May need outpatient gynecology follow up. GPR bacteremia, POA, 1/4bottels, likely contaminant, started meropenem, would follow final culture result, consider d/c abx chronic, stable Systolic CHF, chronic, stable. - Last Echo in June 2016 showed EF to be 25-30% - No signs or symptoms of fluid overload or decompensation. - Continue home spironolactone, Lisinopril, and Metoprolol. Will also resume Lasix once she resumes PO diet. - Closely monitor I/Os Type I diabetes mellitus with diabetic polyneuropathy, uncontrolled. - Patient is a brittle diabetic who is fairly uncontrolled. A1c at the last visit was 11.1. - DKA protocol as above. -Outpatient follow up with Dr.Miller Berry already scheduled for next month CAD of a [place] artery, POA - Stable, no anginal symptoms on admission - Continue home medications: Lipitor, Lisinopril, and ASA. - Patient is also on Eliquis for PEs, although only once a day dosing. May need to verify dosing. Complete heart block s/p pacemaker, POA - V-paced, stable - Placed on Telemetry for CV monitoring Chronic Mood Disorders, POA - History of PTSD, DAISY, and Depression - will continue Amitriptyline 25 mg takes 2-4 tablets by mouth at bedtime, Ativan 1 mg QID PRN - We will continue Venlafaxine ER 150 mg daily when she resumes PO intake. Dyslipidemia, chronic. - Continue Atorvastatin 80 mg tablet daily Chronic pain disorder, POA - Secondary to degenerative disease of Lumbars - Currently has PO morphine for pain management Hypothyroidism with history of Graves' disease - TSH 4.8 with a low T4 of 0.65. Patient takes Levothyroxine 250 g daily at home. - Will consider increasing to 275mcg when the patient is no longer NPO. Chronic GERD - Continue Pantoprazole 40 mg 2 times daily. Tylenol for fever as needed Bowel regimen for constipation as needed CODE STATUS: Full resuscitation dispo: CCU appropriate, likely transfer to [facility] once DKA resolved GI Prophylaxis: Proton Pump Inhibitor VTE Prophylaxis: Other VTE Mechanical Devices: Intermittant Pneumatic CD Resuscitation Status: CPR: Attempt Resuscitation Time spent 35min Fawn Goddard MD Sep 14, 2016 12:59
[2016-09-14] MEDS ORDERED: Magnesium Sulf 2 Gm/50mL Water 2 GM in IV Premix 1 EACH IV ONE (15:05)
[2016-09-14] MEDS ORDERED: Potassium Chloride 20 mEq SR Tablet PO ONE (15:05)
--- NOTE | 2016-09-14 15:41 | NUR ---
Social Work: Initial Assessment/Multidisciplinary Rounds D: Per EMR review, pt is a 36 year old female admitted for abdominal pain, nausea, vomiting. Pt is [employer] insurance with no supplement; pt has no LTC or VA benefits. PCP is Arielle Aguilar DO. NOK is Eddi Dan, father, . Advanced directives information provided to the patient. RA score is high, 4/8. Pt discussed in am rounds. Pt with DKA. Capacity for self-care addressed- no concerns at this time. Pt screened in for assessment as pt has multiple providers involved in care. Pt lives in [place] with her dad. Pt is I at baseline, uses no DME and is I with self-care. Pt has never used home health but was open with [facility] in the past for IV ABX. Pt has never required skilled rehab or home health. Pt anticipates discharging back home with her father to transport. Pt expresses no concerns about discharge home when medically stable. A: Pt who is I at baseline. P: Evolving; DAYLIN to continue to follow to assess for discharge needs. DAYLIN Harris Addendum: 09/14/16 at 1605 by SHERIN BURNETT Amended: Links added.
[2016-09-14 16:00] VITALS: BP 122/64; PULSE 92; RESP 22; O2SAT 99
[2016-09-14] MEDS: Insulin LISPRO Medium-Dose Scale SUBQ SCH ×2 (17:31→21:23)
[2016-09-14 18:00] VITALS: PULSE 92
--- NOTE | 2016-09-14 18:26 | NUR ---
Diabetes.. blood sugars have been more stable and last anion gap was 14. Pt has had no nausea or emesis and is taking diet in small amts. Has received morphine x3 for generalized back and neck pain which she states is chronic. Dr Goddard updated this evening and pt will be made PCC/Tele status.
[2016-09-14 20:30] VITALS: BP 114/73; PULSE 96; RESP 18; O2SAT 99
[2016-09-14] MEDS ORDERED: Insulin GLARgine 100 Unit/mL Syringe SUBQ SCH (21:00)
[2016-09-14] MEDS: Insulin GLARgine 100 Unit/mL Syringe SUBQ SCH (21:24)
[2016-09-15] VITALS (9 sets, daily range): BP systolic 128–142; BP diastolic 81–89; PULSE 85–94; RESP 16–20; O2SAT 98–100
[2016-09-15] MEDS: Heparin 5,000 Unit/mL Inj SUBQ SCH ×3 (00:30→17:30)
[2016-09-15] MEDS: Meropenem Inj 2,000 MG in 0.9% Sodium Chloride 100 ML IV SCH ×3 (02:41→18:06)
[2016-09-15] MEDS: 0.9% Sodium Chloride 1,000 ML IV SCH (02:41)
[2016-09-15 05:06] LABS: BASOPHILS % (AUTO) 0.2 % (0-3); EOSINOPHILS % (AUTO) 0.8 % (0-5); MONOCYTES % (AUTO) 8.3 % (4-12); Mean Corpuscular Hemoglobin 28.4 pg (27.0-35.0); Mean Corpuscular Volume 90.3 fL (81-100); NEUTROPHILS % (AUTO) 65.5 % (40-74); Platelet Count 142 bil/L (150-400)
[2016-09-15 05:45] LABS: Phosphorus 1.5 mg/dL (2.5-4.9)
[2016-09-15] MEDS ORDERED: Potassium Phos (mMol) Inj 15 MMOL in Dextrose 5% 250 ML IV ONE (07:00)
[2016-09-15] MEDS: Insulin LISPRO Medium-Dose Scale SUBQ SCH ×2 (08:00→12:10)
[2016-09-15] MEDS: Venlafaxine XR 75 mg ER24 Capsule PO SCH (08:28)
[2016-09-15] MEDS: MeTOProlol XL 50 mg ER24 Tablet PO SCH ×2 (08:28→21:04)
[2016-09-15] MEDS: Pantoprazole 40 mg ER24 Tablet PO SCH ×2 (08:28→17:30)
[2016-09-15] MEDS: Nystatin 100,000 Unit/Gm 15 Gm Powder TOPICAL SCH ×2 (08:29→21:04)
[2016-09-15] MEDS ORDERED: Insulin GLARgine 100 Unit/mL Syringe SUBQ ONE (11:10)
--- NOTE | 2016-09-15 13:13 | PCM.PNMED ---
Subjective Date of Service Sep 15, 2016 Subjective No acute event overnight. Today, patient states she is feeling better but still has some moderate RLQ abdominal pain that improves with Morphine. She also has chronic neck and back pain. She denies any nausea, vomiting, SOB, CP, cough, diarrhea, or dysuria. Exam Vital Signs Vital Sign - Last Date Time Temp Pulse Resp B/P Pulse Ox O2 Delivery O2 Flow Rate FiO2 09/15/16 04:54 37.1 85 20 128/82 98 Room Air 09/13/16 12:00 3.00 Intake and Output 09/14/16 09/14/16 09/15/16 Cumulative From/Thru 15:00 23:00 07:00 09/12/16 17:51 - 09/15/16 06:08 Intake Total 835 ml 1123 ml 03528 ml Output Total 450 ml 3200 ml Balance 385 ml 1123 ml 7110 ml Intake Oral 736 ml IV Total 835 ml 1123 ml 9574 ml Output Urine Total 450 ml 3200 ml # Bowel Movements 0 0 Exam General: Obese female, sitting on the hospital bed, eating breakfast, in no acute distress. HEENT: Normocephalic, atraumatic. Oropharynx mildly dry with pink mucosa. Neck: Supple, No jugular venous distension. Cardiovascular: normal rate and rhythm, no murmur appreciated, pacemaker palpable in upper chest. Pulmonary: Clear to auscultation bilaterally with no crackles, wheezes, or rhonchi. Abdomen: Bowel tones are hyperactive. Abdomen is soft but obese. no guarding or rebound, no rashes noted, nondistended, mild tenderness to palpation in the RLQ. Extremities: no cyanosis, clubbing, or edema. Warm to touch. Skin: Some mild confluent chronic vascular changes of bilateral forearm, skin is otherwise warm dry and intact. Neurological: alert and oriented, CN II-XII intact, sensation intact, moving all extremities. Psych: normal mood and affect, normal speech. IVs and Medications Medications Reviewed: Medications were reviewed in detail Lab and Diagnostics Result Diagram: 09/15/[id number]/16454 X-Rays, CTs and MRIs PROCEDURE: CT ABDOMEN AND PELVIS WITH CONTRAST ([id number]) IMPRESSION: 1. Small amount of nonspecific intraperitoneal free fluid in the right paracolic gutter and subhepatic space redemonstrated, similar to the prior study. No loculated abscess collection identified. 2. No evidence of pyelonephritis, hydronephrosis, or perinephric abscess. 12-lead ECG V-paced EKG with no acute St changes. 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 acute, active # Bacteremia, POA, active. - 1/4 bottles grew Gram positive hilary on 09/14, possibly contaminant. - 1/3 bottles grew Corynebacterium on 09/12. - continue Meropenem and repeat blood culture today. - WBC trending down. Procalcitonin is slightly up at 1.74 from 1.28. Continue to trend. - Check limited Echo for vegetations to rule out endocarditis. - No other symptoms and sign of infection. Follow clinically. - Consult Dr. Ambrose when he comes back on Friday. # DKA in the setting of Brittle [id number], POA, resolved. Patient presented with abdominal pain, nausea, and vomiting on admission. Patient's BG rapidly increased from 125 at admission to 1046. Blood gas reveald pH 6.9 and Bicarb of 3.5. Large serum ketone. Lactic acid of 5.2. Anion gap of 33. - DKA protocol with insulin drip was discontinued. AG closed and current 12. - Patient can tolerate PO intake well. Stop IVF. - Pt is clinically improved. replete K,Mg as needed. # RLQ Abdominal Pain, POA, unclear etiology,CT abdo is equivocal, a small amount of nonspecific intraperitoneal free fluid in the right paracolic gutter and subhepatic space redemonstrated, similar to the prior study. No loculated abscess collection identified. Possibly due to progressing DKA. However, no other evidence of infections. - abdominal pain seems to improve as DKA clears up today. - Infectious disease consulted and will watch the patient with no antibiotics now, however, started abx as below - Will check C. diff if patient develops diarrhea as she was on antibiotics recently. - Patient also has a history of endometriosis and large uterine fibroids. She is s/p right oophorectomy and appendectomy. - Will follow clinically for any progression of symptoms. May need outpatient gynecology follow up. chronic, stable Systolic CHF, chronic, stable. - Last Echo in June 2016 showed EF to be 25-30%. Limited Echo ordered. - No signs or symptoms of fluid overload or decompensation. - Continue home spironolactone, Lisinopril, and Metoprolol. Will also resume Lasix today. - Closely monitor I/Os Type I diabetes mellitus with diabetic polyneuropathy, uncontrolled. - Patient is a brittle diabetic who is fairly uncontrolled. A1c at the last visit was 11.1. - Continue Lantus 25 units HS and add 10 units in the morning. - Garsia medium to high correctional scale. -Outpatient follow up with Dr.Miller Berry already scheduled for next month CAD of a [place] artery, POA - Stable, no anginal symptoms on admission - Continue home medications: Lipitor, Lisinopril, and ASA. - Patient is also on Eliquis for PEs. Will resume this today. Complete heart block s/p pacemaker, POA - V-paced, stable - Placed on Telemetry for CV monitoring Chronic Mood Disorders, POA - History of PTSD, DAISY, and Depression - will continue Amitriptyline 25 mg takes 2-4 tablets by mouth at bedtime, Ativan 1 mg QID PRN - We will continue Venlafaxine ER 150 mg daily when she resumes PO intake. Dyslipidemia, chronic. - Continue Atorvastatin 80 mg tablet daily Chronic pain disorder, POA - Secondary to degenerative disease of Lumbars - Currently has PO morphine for pain management Hypothyroidism with history of Graves' disease - TSH 4.8 with a low T4 of 0.65. Patient takes Levothyroxine 250 g daily at home. - Will increase to 275mcg when the patient is no longer NPO. - Check TSH in 6-8 weeks as outpatient. Chronic GERD - Continue Pantoprazole 40 mg 2 times daily. Tylenol for fever as needed Bowel regimen for constipation as needed CODE STATUS: Full resuscitation dispo: will need to be in the hospital for a few more days until blood culture is negative. Pain Evaluation: Adequate Pain Control GI Prophylaxis: Proton Pump Inhibitor VTE Prophylaxis: Other VTE Mechanical Devices: Intermittant Pneumatic CD Resuscitation Status: CPR: Attempt Resuscitation Tanmay Logan DO Sep 15, 2016 07:18
[2016-09-15] MEDS ORDERED: Dextrose 10% 250 ML IV PRN (13:15)
--- NOTE | 2016-09-15 16:46 | NUR ---
Social Work: Multidisciplinary Rounds Pt discussed in am rounds. Pt is not medically stable for discharge at this time. Sw status remains unchanged; anticipate discharge home with family. AVAYA ENGINEER to continue to follow to assess for needs. DAYLIN Harris
--- NOTE | 2016-09-15 17:09 | NUR ---
Shift note Pt's vitals have been stable, afebrile. She is up independently in her room. She reports neck, back, and abdominal pain intermittently. She requests PRN morphine q4 hours. Her central line was d/c'd per IV therapy nurse. Thomason catheter was removed, pt has been able to urinate x2. Pt having some hematuria after catheter was removed. Blood sugars have been 121 and 203 this shift. Blood cultures drawn. Continue with plan of care.
[2016-09-15] MEDS: Insulin LISPRO 300 Unit/3 mL Inj SUBQ SCH ×2 (18:02→22:00)
[2016-09-15] MEDS: Insulin GLARgine 100 Unit/mL Syringe SUBQ SCH (21:05)
[2016-09-16] VITALS (9 sets, daily range): BP systolic 122–142; BP diastolic 70–85; PULSE 79–88; RESP 16–20; O2SAT 97–100
[2016-09-16] MEDS: Heparin 5,000 Unit/mL Inj SUBQ SCH ×2 (00:14→08:33)
[2016-09-16] MEDS: Meropenem Inj 2,000 MG in 0.9% Sodium Chloride 100 ML IV SCH ×3 (03:32→23:09)
--- NOTE | 2016-09-16 06:15 | NUR ---
Urine Output/BGs Pt's urine output has increased and pt is sufficiently diuresing with an output >3500cc. Pt's HS BG was 189 so no sliding scale coverage was needed and pt only received Lantus at HS. At approximately 0030 pt put call light on and asked for her BG to be checked because she thought that she was hypoglycemic. Pt's BG at that time was 257. Pt's BG was rechecked at 0330 and the pt's BG at that time was 236. No sliding scale was given in both of these instances where the pt's BG increased into the 200s. Pt had raspberries sitting on the bedside table and may have consumed some of them. Pt continues to be AOx3, and independent in the room with BRP.
--- NOTE | 2016-09-16 08:07 | DRSVH ---
[facility] [address] [place] [address] Echocardiogram Report Name: KAYLEE TURNER MStudy Date: 0 09/15/2016 Height: 64 in Hospital Exam Location: [facility] Weight: 214 lb Gender: Female BSA: 2.0 m2 : 1980 Age: 36 yrs BP: 137/84 mmHg Reason For Study: ENDOCARDITIS Ordering Physician: Performed By: Barrie Arora Referring Physician: Arielle Aguilar Interpretation Summary 1. Normal left ventricular size with mildly increased wall thickness and an estimated EF of 30-35% (with wall motion abnormalities as noted below). 2. Normal right ventricular size and systolic function. The estimated RVSP is 42 mm Hg. 3. Mild to moderate mitral regurgitation. Trace aortic insufficiency Compared to the previous study (images reviewed), the findings of the left and right ventricle appear similar. Valves were not fully assessed in the last study Procedure: A two-dimensional transthoracic echocardiogram with color flow and Doppler was performed in limited views only. A contrast injection of Definity was performed to improve assessment of LV function. The study quality was technically adequate. Comparison is made with the echocardiogram of 06/25/16. The patient has a paced rhythm. Left Ventricle: The left ventricle is normal in size. Left ventricular wall thickness is mildly increased. No obvious thrombus. The ejection fraction is estimated to be 30-35%. Hypokinesis of the apical inferior septum, anterior septum, anterolateral wall, inferolateral, inferior and anterior segments. Right Ventricle: There is a pacemaker lead in the right ventricle. The right ventricle is normal in size and function. Atria: Both atria are normal in size. The interatrial septum is intact with no evidence for an atrial septal defect. Mitral Valve: The mitral valve is normal in structure and function. There is mild to moderate mitral regurgitation. Aortic Valve: The aortic valve is trileaflet. The aortic valve opens well. There is trace aortic regurgitation. Tricuspid Valve: The tricuspid valve is normal in structure and function. There is mild to moderate tricuspid regurgitation. The right ventricular systolic pressure is estimated at 42 mmHg assuming a right atrial pressure of 3 mm Hg. Pulmonic Valve: The pulmonic valve is normal in structure and function. Great Vessels: The aortic root is normal size. The ascending aorta is normal in size. The IVC is of normal diameter and collapses greater than 50% with a sniff. This suggests a low right atrial pressure of 3 mm Hg. MMode/2D Measurements & Calculations LVIDd: 4.9 cm RA long axis: 4.5 cm asc Aorta LVIDs: 3.7 cm LA A2 area: 17.8 cm Diam: 3.2 cm FS: 25.1 % LA A4 area: 20.3 cm RA area: 16.9 cm IVSd: 1.2 cm LA length (vol): 5.5 cm RA vol: 53.8 ml LVPWd: 1.2 cm LA vol: 55.8 ml RA : 26.7 ml/m2 LA vol index: 27.7 ml/m IVC diam: 1.8 cm EDV(MOD-sp2) LV shelton. diameter/BSA LV sys. diameter/BSA (cm/m^2): 2.4 (cm/m^2): 1.8 ESV(MOD-sp2) EF(MOD-sp2) Doppler Measurements & Calculations AI P1/2t: 633.9 msec TR max gianni: 311.0 cm/sec TR max P.7 mmHg MR flow rate: 37.1 cm3/sec AI dec slope: 137.9 cm/sec2 MR PISA radius: 0.41 cm Reading Physician:08:07 AM
[2016-09-16] MEDS ORDERED: Insulin GLARgine 100 Unit/mL Syringe SUBQ ONE (08:30)
[2016-09-16] MEDS: Vancomycin Dose per Pharmacist XX SCH (08:30)
[2016-09-16] MEDS: Insulin LISPRO 300 Unit/3 mL Inj SUBQ SCH ×4 (08:34→22:10)
[2016-09-16] MEDS: Pantoprazole 40 mg ER24 Tablet PO SCH ×2 (08:35→18:48)
[2016-09-16] MEDS: MeTOProlol XL 50 mg ER24 Tablet PO SCH ×2 (08:35→22:08)
[2016-09-16] MEDS: Venlafaxine XR 75 mg ER24 Capsule PO SCH (08:35)
[2016-09-16] MEDS: Nystatin 100,000 Unit/Gm 15 Gm Powder TOPICAL SCH ×2 (08:35→22:08)
[2016-09-16 10:22] LABS: EOSINOPHILS % (AUTO) 1.9 % (0-5); MONOCYTES % (AUTO) 5.8 % (4-12); Mean Corpuscular Volume 89.9 fL (81-100); NEUTROPHILS % (AUTO) 67.4 % (40-74); Platelet Count 156 bil/L (150-400)
--- NOTE | 2016-09-16 10:54 | NUR ---
Social Work: Multidisciplinary Rounds Pt was discussed in AM rounds today, Per MD pt may require IV abx as pt has positive blood cultures. ID MD consult pending. SW to continue to follow for MD recommendations and orders. DAYLIN Briones
[2016-09-16 10:55] LABS: Magnesium 1.3 mg/dL (1.6-2.6)
[2016-09-16] MEDS ORDERED: Vancomycin Inj 2,000 MG in 0.9% Sodium Chloride 500 ML IV ONE (11:00)
[2016-09-16] MEDS ORDERED: Potassium Chloride 20 mEq SR Tablet PO ONE (14:45)
--- NOTE | 2016-09-16 14:50 | PCM.PNMED ---
Subjective Date of Service Sep 16, 2016 Subjective No acute event overnight. Patient's BG continues to be in the 200s. This morning, patient reports feeling "so so." She reports persistent RLQ abdominal pain that radiates to her mid back, which is different than her chronic lower back pain. She would like to continues the Morphine for one more day before switching to oral. She reports independent ambulation in the room with no issue. She denies any nausea or vomiting. She has not had a BM yet, but passing gas normally. Exam Vital Signs Vital Sign - Last Date Time Temp Pulse Resp B/P Pulse Ox O2 Delivery O2 Flow Rate FiO2 09/16/16 12:56 81 09/16/16 11:26 36.6 16 127/72 99 Room Air 09/13/16 12:00 3.00 Intake and Output 09/15/16 09/15/16 09/16/16 Cumulative From/Thru 15:00 23:00 07:00 09/12/16 17:51 - 09/16/16 06:52 Intake Total 840 ml 2966 ml 1056 ml 80103 ml Output Total 500 ml 1100 ml 5850 ml 55968 ml Balance 340 ml 1866 ml -4794 ml 4522 ml Intake Oral 840 ml 2280 ml 837 ml 4693 ml IV Total 686 ml 219 ml 82478 ml Output Urine Total 500 ml 1100 ml 5850 ml 44799 ml # Bowel Movements 0 Exam General: Obese female, sitting on the hospital bed, in no acute distress. HEENT: Normocephalic, atraumatic. Oropharynx mildly dry with pink mucosa. Neck: Supple, No jugular venous distension. Cardiovascular: normal rate and rhythm, no murmur appreciated, pacemaker palpable in upper chest. Pulmonary: Clear to auscultation bilaterally with no crackles, wheezes, or rhonchi. Abdomen: Bowel tones are hyperactive. Abdomen is soft but obese. no guarding or rebound, no rashes noted, nondistended, mild tenderness to palpation in the RLQ. Extremities: no cyanosis, clubbing, or edema. Warm to touch. Skin: Some mild confluent chronic vascular changes of bilateral forearm, skin is otherwise warm dry and intact. Neurological: alert and oriented, CN II-XII intact, sensation intact, moving all extremities. Psych: normal mood and affect, normal speech. Poor judgment and insight. IVs and Medications Medications Reviewed: Medications were reviewed in detail Lab and Diagnostics Result Diagram: 09/16/16 1010 09/16/16 1010 X-Rays, CTs and MRIs PROCEDURE: CT ABDOMEN AND PELVIS WITH CONTRAST ([id number]) IMPRESSION: 1. Small amount of nonspecific intraperitoneal free fluid in the right paracolic gutter and subhepatic space redemonstrated, similar to the prior study. No loculated abscess collection identified. 2. No evidence of pyelonephritis, hydronephrosis, or perinephric abscess. 12-lead ECG V-paced EKG with no acute St changes. 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 acute, active # Bacteremia, POA, active. - 2/8 bottles grew Corynebacterium on 09/12 and 09/14. - continue Meropenem and will wait for Dr. Ambrose's antibiotic guidance when he comes back tomorrow. - WBC trending down. Procalcitonin is slightly up at 1.74 from 1.28. Continue to trend. - Limited Echo shows no significant change from the previous echo. No evidence of vegetations. - No other symptoms and sign of infection. Follow clinically. # DKA in the setting of Brittle [id number], POA, resolved. Patient presented with abdominal pain, nausea, and vomiting on admission. Patient's BG rapidly increased from 125 at admission to 1046. Blood gas reveald pH 6.9 and Bicarb of 3.5. Large serum ketone. Lactic acid of 5.2. Anion gap of 33. - DKA protocol with insulin drip was discontinued. - Patient can tolerate PO intake well. Stop IVF. - Pt is clinically improved. replete K,Mg as needed. # RLQ Abdominal Pain, POA, unclear etiology. CT abdo is equivocal, a small amount of nonspecific intraperitoneal free fluid in the right paracolic gutter and subhepatic space redemonstrated, similar to the prior study. No loculated abscess collection identified. Possibly due to progressing DKA. However, no other evidence of infections. - No diarrhea so far thus unlikely to be due to C. diff. - Patient also has a history of endometriosis and large uterine fibroids. She is s/p right oophorectomy and appendectomy. - Will follow clinically for any progression of symptoms. May need outpatient gynecology follow up. - Will transition to PO pain medication tomorrow. chronic, stable Systolic CHF, chronic, stable. - Last Echo in June 2016 showed EF to be 25-30%. Limited Echo shows no change. - No signs or symptoms of fluid overload or decompensation. - Continue home spironolactone, Lisinopril, and Metoprolol. Will also resume Lasix today. - Closely monitor I/Os Type I diabetes mellitus with diabetic polyneuropathy, uncontrolled. - Patient is a brittle diabetic who is fairly uncontrolled. A1c at the last visit was 11.1. - Continue Lantus 25 units HS and increase to 15 units in the morning. - Garsia medium to high correctional scale. - Outpatient follow up with Dr.Miller Berry already scheduled for next month CAD of a [place] artery, POA - Stable, no anginal symptoms on admission - Continue home medications: Lipitor, Lisinopril, and ASA. - Patient is also on Eliquis for PEs. Continue Eliquis. Complete heart block s/p pacemaker, POA - V-paced, stable - Placed on Telemetry for CV monitoring Chronic Mood Disorders, POA - History of PTSD, DAISY, and Depression - will continue Amitriptyline 25 mg takes 2-4 tablets by mouth at bedtime, Ativan 1 mg QID PRN - We will continue Venlafaxine ER 150 mg daily . Dyslipidemia, chronic. - Continue Atorvastatin 80 mg tablet daily Chronic pain disorder, POA - Secondary to degenerative disease of Lumbars - Currently has IV morphine for pain management. Wi Hypothyroidism with history of Graves' disease - TSH 4.8 with a low T4 of 0.65. Patient takes Levothyroxine 250 g daily at home. - Will increase to 275mcg. - Check TSH in 6-8 weeks as outpatient. Chronic GERD - Continue Pantoprazole 40 mg 2 times daily. Tylenol for fever as needed Bowel regimen for constipation as needed CODE STATUS: Full resuscitation dispo: will need to be in the hospital for a few more days until blood culture is negative. Pain Evaluation: Adequate Pain Control GI Prophylaxis: Proton Pump Inhibitor VTE Prophylaxis: Other VTE Mechanical Devices: Intermittant Pneumatic CD Resuscitation Status: CPR: Attempt Resuscitation Tanmay Logan DO Sep 16, 2016 14:50
--- NOTE | 2016-09-16 15:06 | NUR ---
NUTRITION FOLLOW UP: ASSESS: 36 YO female admitted with RLQ abdominal pain, N/V, and bacteremia. DKA resolved per notes. Pt with good PO intake. PMHx: Type 1 DM, organic heart disease, CAD, complete heart block, pacemaker, mitral valve insufficiency, pacemaker infection, perinephric abscess w/ MSSA , hypothyroid, Graves disease, neuropathy, generalized anxiety disorder, CHF, PE/DVT's, aspirated liver cyst, medication noncompliance. DIET: Heart Healthy/Consistent Carb. PO intake 50-100%. LABS: Reviewed. K+ 3.2, Glu 176, Ca 8.0, Mg 1.3, Alk Phos 202, Alb 3.0 MEDICATIONS: Reviewed. lasix, insulin. GI: No stool reported. SKIN: No issues reported. ANTHROPOMETRICS: Current Wt: 90.6 kg, BMI: 34.3 kg/m2. Admit weight: 92.0 kg. IBW: 54.5 kg (168.7% IBW) ESTIMATED NEEDS (BMI): Calories: 9637-7574 kcal (20-22 kcal/kg BW) Protein: 65-82 g protein (1.2-1.5 g/kg IBW) Fluid: Approx. 2300 mL (25 mL/kg BW) NUTRITION DIAGNOSIS: 1) Altered nutrition-related labs related to DKA, respiratory failure, as evidenced by glucose 770, large amount serum ketones, lactic acid 5.2.---RESOLVED. INTERVENTION: 1) Continue current diet as ordered. MONITOR/EVALUATE: Diet tolerance, PO intake, labs, GI/nutrition status. Follow per high nutrition risk guidelines. Addendum: 09/16/16 at [address] Follow per low nutrition risk guidelines (not high as stated above)
[2016-09-16] MEDS ORDERED: Magnesium Sulf 2 Gm/50mL Water 2 GM in IV Premix 1 EACH IV ONE (17:25)
--- NOTE | 2016-09-16 20:14 | NUR ---
Abdominal/back pain/family concerns No reports of chest pain/pressure/discomfort. Tele 100% VPACED 80s. Traceedema in bialteral LE. No reports of SOB/dizziness. SPO2 on RA 100%. Denies cough. No current reports of nausea, no emesis. Patient reports last BM on 09/12, denies feeling constipated. Passing gas. Voiding without complication. Tolerating PO intake well. Reports continuous abdominal pain, tender to palpation. Patient pushes call light and requested IV pain medicine every 4 hours. Mother of patient came out to speak with me, stating she feels as though her daughter has an opiate problem and asked if I would "record her concerns...I'm not saying she doesn't have pain I just think she wants her pain medicine". Stated I would put it in my shift note.
[2016-09-16] MEDS: Insulin GLARgine 100 Unit/mL Syringe SUBQ SCH (22:09)
[2016-09-16] MEDS: Vancomycin/250 mL NS IV SCH ×2 (23:10)
[2016-09-16] MEDS ORDERED: 0.9% Sodium Chloride 250 ML ONE (23:11)
[2016-09-17] MEDS: Vancomycin/250 mL NS IV SCH ×2 (02:30)
[2016-09-17] MEDS: Meropenem Inj 2,000 MG in 0.9% Sodium Chloride 100 ML IV SCH (02:42)
[2016-09-17 03:08] VITALS: BP 113/74; PULSE 81; RESP 16; O2SAT 100
[2016-09-17 04:37] LABS: BASOPHILS % (AUTO) 0.5 % (0-3); EOSINOPHILS % (AUTO) 2.1 % (0-5); MONOCYTES % (AUTO) 11.5 % (4-12); Mean Corpuscular Hemoglobin 29.1 pg (27.0-35.0); Mean Corpuscular Volume 88.2 fL (81-100); NEUTROPHILS % (AUTO) 58.2 % (40-74); Platelet Count 162 bil/L (150-400)
--- NOTE | 2016-09-17 05:47 | NUR ---
Pain/BG Pt c/o right lower quadrant pain that radiates to her back 10/10. Administering PRN 4mg IVP morphine Q4 hours as pt is very concerned about not receiving it and requesting exactly every 4 hours. Pt states that she does get some relief from the medication and pain will go down to 3/10 but will increase after a short amount of time. Pt BG this shift 204 administered 25 units Lantus and 2 units Lispro, upon reassessment BG 86, Pt requesting dada and denise at that time. VSS and Tele SR
[2016-09-17] MEDS ORDERED: Meropenem Inj 2,000 MG in 0.9% Sodium Chloride 100 ML IV SCH (07:30)
[2016-09-17 07:56] VITALS: BP 121/74; PULSE 79; RESP 16; O2SAT 98
[2016-09-17] MEDS: Insulin LISPRO 300 Unit/3 mL Inj SUBQ SCH ×4 (08:00→21:28)
[2016-09-17] MEDS: MeTOProlol XL 50 mg ER24 Tablet PO SCH ×2 (08:10→21:29)
[2016-09-17] MEDS: Pantoprazole 40 mg ER24 Tablet PO SCH ×2 (08:11→17:05)
[2016-09-17] MEDS: Venlafaxine XR 75 mg ER24 Capsule PO SCH (08:13)
[2016-09-17] MEDS: Nystatin 100,000 Unit/Gm 15 Gm Powder TOPICAL SCH ×2 (08:19→21:29)
[2016-09-17] MEDS: Vancomycin Dose per Pharmacist XX SCH (08:30)
[2016-09-17] MEDS: Vancomycin Inj 1,250 MG in 0.9% Sodium Chloride 250 ML IV SCH ×2 (10:17→17:06)
[2016-09-17 11:27] VITALS: PULSE 74
[2016-09-17 11:31] VITALS: BP 101/66; PULSE 78; RESP 18; O2SAT 96
--- NOTE | 2016-09-17 12:25 | DRSVH ---
PROCEDURE: US ABDOMEN ([id number]) INDICATIONS: persistent RLQ pain TECHNIQUE: Real-time scanning was performed of the abdominal and retroperitoneal organs, with image documentatio n. COMPARISON: [facility], CT, CT ABD PELVIS W CON, 09/12/2016, 20:23. [facility] al, US, US ABDOMEN, 05/23/2016, 10:54. FINDINGS: Liver: Liver is normal in size and homogeneous in echotexture. There is minimal perihepatic free fl uid demonstrated. Gallbladder: Surgically absent. Biliary ducts: Intrahepatic bile ducts are non-dilated. Extrahepatic bile duct caliber measures 6-7 mm. Normal is 6-7 mm or less in diameter, or 10 mm or less post-cholecystectomy. Pancreas: Not well seen. Spleen: Spleen is normal in size and homogeneous in echotexture. Kidneys: Right kidney measures 11.6 cm long; left kidney measures 12.5 cm long. No hydronephrosis. 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 Aorta: Visualized aorta is normal in caliber at less than 3 cm. Iliacs: Proximal common iliac arteries are not well seen. IVC: Intrahepatic inferior vena cava is patent. Miscellaneous: No free fluid in the lower abdomen. IMPRESSION: 1. Minimal perihepatic free fluid redemonstrated. Dictated by: Michael Ovalle M.D. on 09/17/2016 at 12:19 Approved by: Michael Ovalle M.D. on 09/17/2016 at 12:23
--- NOTE | 2016-09-17 13:10 | PCM.PNMED ---
Subjective Date of Service Sep 17, 2016 Subjective pt still c/o RLQ pain, tenderness, denied n/v, tolerating diet well, glc under control repeat abd US showed minimal periphepatic fluid repeat BCX for 2days, no growth Mother from [place] stated pt seems to seek for narcotic, Exam Vital Signs Vital Sign - Last Date Time Temp Pulse Resp B/P Pulse Ox O2 Delivery O2 Flow Rate FiO2 09/17/16 12:20 76 09/17/16 11:31 36.6 18 101/66 96 Room Air 09/13/16 12:00 3.00 Intake and Output 09/16/16 09/16/16 09/17/16 Cumulative From/Thru 15:00 23:00 07:00 09/12/16 17:51 - 09/17/16 05:27 Intake Total 1629 ml 454 ml 95559 ml Output Total 3450 ml 67228 ml Balance -1821 ml 454 ml 3155 ml Intake Oral 954 ml 5647 ml IV Total 675 ml 454 ml 56573 ml Output Urine Total 3450 ml 50930 ml # Bowel Movements 0 Exam NAD, comfortably laying down on the bed no JVD, MMM, no LAD RRR, nl s1, s2 no mrg CTAB, no w,c S,ND,mild RLQ td,normoactive BS+ warm, no edema, pulses 2/2 IVs and Medications Medications Reviewed: Medications were reviewed in detail Lab and Diagnostics Result Diagram: 09/17/16 0400 09/17/16 0400 X-Rays, CTs and MRIs PROCEDURE: CT ABDOMEN AND PELVIS WITH CONTRAST ([id number]) IMPRESSION: 1. Small amount of nonspecific intraperitoneal free fluid in the right paracolic gutter and subhepatic space redemonstrated, similar to the prior study. No loculated abscess collection identified. 2. No evidence of pyelonephritis, hydronephrosis, or perinephric abscess. 12-lead ECG V-paced EKG with no acute St changes. 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 acute, active #Corynebacterium bacteremia, POA, active. unclear source, possibly contaminant, perihepatic fluid, infected PPM, 2/8 bottles grew Corynebacterium on 09/12 and . Limited Echo shows no significant change from the previous echo. No evidence of vegetations. - WBC trending down. Procalcitonin is slightly up at 1.74 from 1.28. Continue to trend, serial BCX 09/14, 09/16 remained ngtd - continue Meropenem and will wait for Dr. Ambrose's antibiotic guidance - No other symptoms and sign of infection. Follow clinically. # DKA in the setting of Brittle [id number], POA, resolved. Patient presented with abdominal pain, nausea, and vomiting on admission. Patient's BG rapidly increased from 125 at admission to 1046. Blood gas reveald pH 6.9 and Bicarb of 3.5. Large serum ketone. Lactic acid of 5.2. Anion gap of 33. - DKA protocol with insulin drip was discontinued. - Patient can tolerate PO intake well. Stop IVF. - Pt is clinically improved. replete K,Mg as needed. # RLQ Abdominal Pain, POA, unclear etiology. CT abdo is equivocal, a small amount of nonspecific intraperitoneal free fluid in the right paracolic gutter and subhepatic space redemonstrated, similar to the prior study. No loculated abscess collection identified. Possibly due to progressing DKA. However, no other evidence of infections. Repeat US 09/17 showed minimal perihepatic fluid, unclear if this is related to her pain, could be from scar tissue as Patient also has a history of endometriosis and large uterine fibroids. She is s/p right oophorectomy and appendectomy although pt thinks this is new onset. There is possibility of drug seeking as well. -pt remained clinically stable, still requiring morphine iv 4mg, decrease to 1mg prn, see response. chronic, stable Systolic CHF, chronic, stable. - Last Echo in June 2016 showed EF to be 25-30%. Limited Echo shows no change. - No signs or symptoms of fluid overload or decompensation. - Continue home spironolactone, Lisinopril, and Metoprolol. Will also resume Lasix today. - Closely monitor I/Os Type I diabetes mellitus with diabetic polyneuropathy, uncontrolled. - Patient is a brittle diabetic who is fairly uncontrolled. A1c at the last visit was 11.1. - Continue Lantus 25 units HS and increase to 15 units in the morning. - Garsia medium to high correctional scale. - Outpatient follow up with Dr.Miller Berry already scheduled for next month CAD of a port gamble artery, POA - Stable, no anginal symptoms on admission - Continue home medications: Lipitor, Lisinopril, and ASA. - Patient is also on Eliquis for PEs. Continue Eliquis. Complete heart block s/p pacemaker, POA - V-paced, stable - Placed on Telemetry for CV monitoring Chronic Mood Disorders, POA - History of PTSD, DAIYS, and Depression - will continue Amitriptyline 25 mg takes 2-4 tablets by mouth at bedtime, Ativan 1 mg QID PRN - We will continue Venlafaxine ER 150 mg daily . Dyslipidemia, chronic. - Continue Atorvastatin 80 mg tablet daily Chronic pain disorder, POA - Secondary to degenerative disease of Lumbars - Currently has IV morphine for pain management. Wi Hypothyroidism with history of Graves' disease - TSH 4.8 with a low T4 of 0.65. Patient takes Levothyroxine 250 g daily at home. - Will increase to 275mcg. - Check TSH in 6-8 weeks as outpatient. Chronic GERD - Continue Pantoprazole 40 mg 2 times daily. Tylenol for fever as needed Bowel regimen for constipation as needed CODE STATUS: Full resuscitation dispo:pt is clinically stable, coordinate with ID for dispo. GI Prophylaxis: Proton Pump Inhibitor VTE Prophylaxis: Other VTE Mechanical Devices: Intermittant Pneumatic CD Resuscitation Status: CPR: Attempt Resuscitation Time spent 35min Fawn Goddard MD Sep 17, 2016 13:10
--- NOTE | 2016-09-17 13:59 | PROG NOTE ---
[address] [address] PROGRESS NOTE PATIENT: KAYLEE TURNER : 1980 MR#: [id number] ADMIT: 09/12/2016 JOB ID: [id number] DATE: 09/17/2016 INFECTIOUS DISEASE FOLLOWUP NOTE: REASON FOR FOLLOWUP: Corynebacterium bacteremia. INTERVAL HISTORY: Recall that this is an extremely complex 36-year-old type 1 diabetic who was admitted now six days ago with intractable nausea and vomiting. She developed blood sugars greater than 1000 and was intubated and extremely ill towards the end of last week. I have been out of town the last three days but since I last saw her, she has had a remarkable recovery and is now sitting up in bed, eating a hamburger and states she is feeling rapidly back to normal. She still has a bit of right lower quadrant pain. Recall that we had a CT scan that showed there was still a bit of infrahepatic fluid but recall that we had sampled this on a prior admission and it was culture negative. My only concern when I last saw her four days ago was that her procalcitonin was up a bit, and we are waiting on multiple blood cultures. Our initial plan was to watch her off antibiotics but because of increased concerns about infection, she has been started on meropenem over the weekend and I, yesterday, added vancomycin from my long weekend location because I was concerned about corynebacterium, which had turned up in two blood culture bottles. Today, the patient said she is feeling rapidly back towards her normal self. She no longer has any fevers, chills, or sweats, the nausea and vomiting that brought her into the hospital are gone, and she has no diarrhea. She still has some mild right lower quadrant pain but no significant right upper quadrant pain. She also notes that her pacer is mildly tender but it usually is. PHYSICAL EXAMINATION: Reveals a woman who has been afebrile since her admission on the . Current temp is 36.6, pulse 76, respiratory rate 18, blood pressure 101/66. She is saturating well on room air. She is awake, pleasant and conversational. Oral cavity: Negative. No skin rash. Right pacer is almost in the right axilla. It is nontender. Lungs basically clear. Cardiac tones without new murmur. Abdomen: Minimal right lower quadrant tenderness without mass. LABORATORIES: Include a white count which was 6000 when she came in, jumped to 27,000 as she into DKA, and is now back to 5000. The diff is normal. Creatinine 0.48. Procalcitonin was 1.28 on admission. It jumped to 1.75, and it is now down to 0.25. Creatinine is 0.48. Micro studies include 1/4 bottles from admission which grew corynebacterium species. We then repeated four more blood culture bottles on the and one again grew corynebacterium. In speaking to the head of Micro yesterday, she informed me she thinks these are the identical organism, though we do not know the species. Additional followup blood cultures on the and are negative. A MRSA screen is negative as well. IMAGING: Includes an abdominal ultrasound done yesterday which showed some mild perihepatic fluid, as we had seen previously. Otherwise, negative. IMPRESSION: This is an extremely difficult case of a patient who earlier in the year had a pacer placed and then suffered a high-grade methicillin-sensitive Staphylococcus aureus bacteremia from a perinephric abscess. We eventually had to replace the pacer and put in a new one on the right side. The patient since has had issues with this admission for diabetic ketoacidosis, as well as a prior admission during which we demonstrated that the perinephric abscess was completely gone but there was some perihepatic fluid, which was sampled and was found to be culture negative. At this point, I think it is very unlikely the patient has a significant infection but I am nonetheless concerned about the findings of the same corynebacterium in one blood culture done on two different days. Corynebacterium are usually not significant human pathogens and are typically contaminants but they can be significant in people that are immunosuppressed and especially people who have indwelling hardware. This patient is immunosuppressed by virtue of her severe type 1 diabetes as well, and she also has, of course, the pacemaker in place. RECOMMENDATIONS: 1. Will drop the meropenem, as I am not certain why it was initiated and I see no indication to continue it. 2. Will continue with the vancomycin for the time being. 3. We await the additional blood cultures. 4. I have asked that the corynebacterium isolates from the blood be sent to the [facility] for additional susceptibility testing.
[2016-09-17] MEDS ORDERED: Vancomycin Serum Trough XX ONE (16:00)
[2016-09-17] MEDS ORDERED: Potassium Chloride 20 mEq SR Tablet PO ONE (16:10)
--- NOTE | 2016-09-17 16:44 | NUR ---
NURSING DAYS 7-7 (09/17) LABS-K+ 3.4, Blood (+) NEURO-LOC X3 CVS- Telemetry V paced 80's PLUM-RA GI-ADA BG 69 breakfast and lunch 235 GI- Bathroom 800mls SKIN- Nystain groin breast PAIN-Changed to PO today for RLQ ABD pain IV-S/L PLAN- Antibiotics until blood cultures are clear.
--- NOTE | 2016-09-17 17:33 | PCM.PHAPRO ---
Progress Date of Service: Sep 17, 2016 abd pain w/ n/v Dx: possible Corynebacterium bacteremia vancomycin trough goal 15-20 vancomycin trough 16.4 (at goal) continue vancomycin 1.25gm IV q8h per pharmacy Maxwell Jama PharmD Maxwell Jama Sep 17, 2016 17:33
[2016-09-17 20:00] VITALS: PULSE 86
[2016-09-17 21:18] VITALS: BP 118/69; PULSE 86; RESP 20; O2SAT 96
[2016-09-17] MEDS: Insulin GLARgine 100 Unit/mL Syringe SUBQ SCH (21:28)
[2016-09-17] MEDS ORDERED: 0.9% Sodium Chloride 250 ML ONE (22:43)
[2016-09-18 00:19] VITALS: BP 126/80; PULSE 85; RESP 20; O2SAT 100
[2016-09-18] MEDS: Vancomycin Inj 1,250 MG in 0.9% Sodium Chloride 250 ML IV SCH ×3 (00:19→17:29)
[2016-09-18 03:21] VITALS: BP 113/74; PULSE 73; RESP 20; O2SAT 100
--- NOTE | 2016-09-18 05:52 | NUR ---
Pain Pt transitioned to oral Tramadol Q6, pt stating pain 6-7/10 in her abdomen and back that is unchanged since admission. Administered Tramadol x2 this shift with some relief. Pt continued on vanco IV and will be DC's to home after Blood cultures come back negative per Dr. Ambrose. VSS and Tele 100% Vpaced.
[2016-09-18] MEDS ORDERED: Potassium Chloride 20 mEq SR Tablet PO ONE (08:00)
[2016-09-18] MEDS: Insulin LISPRO 300 Unit/3 mL Inj SUBQ SCH ×4 (08:00→22:36)
[2016-09-18] MEDS: Pantoprazole 40 mg ER24 Tablet PO SCH ×2 (08:08→17:29)
[2016-09-18] MEDS: Venlafaxine XR 75 mg ER24 Capsule PO SCH (08:10)
[2016-09-18] MEDS: MeTOProlol XL 50 mg ER24 Tablet PO SCH ×2 (08:11→22:34)
[2016-09-18] MEDS: Nystatin 100,000 Unit/Gm 15 Gm Powder TOPICAL SCH ×2 (08:12→23:34)
[2016-09-18] MEDS: Vancomycin Dose per Pharmacist XX SCH (08:14)
[2016-09-18] MEDS: Insulin GLARgine 100 Unit/mL Syringe SUBQ SCH ×2 (08:52→21:00)
[2016-09-18 09:03] VITALS: BP 121/81; PULSE 78; RESP 17; O2SAT 100
--- NOTE | 2016-09-18 10:05 | PROG NOTE ---
[address] [address] PROGRESS NOTE PATIENT: KAYLEE TURNER : 1980 MR#: [id number] ADMIT: 09/12/2016 JOB ID: [id number] DATE: 09/18/2016 REASON FOR FOLLOWUP: Cryneobacterium bacteremia in a patient with underlying history of possible pacer infection. INTERVAL HISTORY: Overnight, the patient has felt relatively well. She still has a very poor appetite though and notes some mild right-sided abdominal pain, which has been persistent for weeks. There is no associated fevers, chills, or sweats. No significant cough, chest pain, and the nausea and vomiting that precipitated her admission have resolved. PHYSICAL EXAMINATION: Reveals a woman who is consistently afebrile. Temperature 36.6, pulse 78, respiratory rate 17, blood pressure 121/81. She is saturating 100% on room air. Examination of the mental status reveals it to be clear. Oral cavity benign. Lungs clear. Cardiac tones regular rate and rhythm. There is no significant murmur. The pacer is minimally tender, but looks okay in the right upper chest. The abdomen is notable for mild distention and some mild right lower quadrant as well as some minimal right upper quadrant tenderness. LABORATORIES: Include a white count yesterday 5600, basically normal diff. Creatinine 0.48. LFTs with minimally elevated alk phos to 202. Procalcitonin was 1.74 on the 16th and declined to 0.5 by the 18th. Urinalysis without white cells. Microstudies include negative blood cultures from the and though we do have 1/4 bottles from the and 1/4 bottles from the growing Corynebacteria species. This appears to be the same organism. This organism has been forwarded to the [facility] for definitive identification and susceptibilities. IMAGING: Includes an abdominal ultrasound done yesterday which shows a scant amount of perihepatic fluid as was seen previously. The patient does not have a gallbladder. IMPRESSION: This remains an extremely confusing case of a patient who had a high-grade Staphylococcus methicillin sensitive Staphylococcus aureus bacteremia after placement of a pacer earlier this year. We eventually pulled that pacer and inserted a new one after two weeks because of concerns that the initial pacer might conceivably have been infected though there was no definitive proof of that. Subsequently a 2nd spacer was placed. The patient was admitted on this occasion because of nausea, vomiting and diabetic ketoacidosis. One out of four blood cultures on the grew Corynebacterium which we initially felt of course was a contaminant, but the repeat cultures on the also had 1/4 blood cultures positive for an apparently identical organism. Corynebacteria can cause infections on prosthetic devices and are more likely to cause issues in patients who are immunosuppressed. Whether this patient's pacer is infected is unknown. I am inclined to think not, but nonetheless somewhat worrisome that we have the same blood cultures done in such close proximity to each other. RECOMMENDATIONS: 1. We await further maturation of our current blood cultures. 2. I have left a message for Dr. Newton of the Cardiology Department to see whether he thinks a AJIT may be indicated in this case. 3. Will continue to watch the patient and also continue her vancomycin as her sole antibiotic in case we are in fact treating a "real" infection with this organism.
[2016-09-18 10:58] VITALS: PULSE 78
[2016-09-18 11:39] VITALS: BP 118/81; PULSE 77; RESP 20; O2SAT 99
[2016-09-18 15:33] VITALS: BP 110/70; PULSE 76; RESP 18; O2SAT 100
--- NOTE | 2016-09-18 16:40 | NUR ---
Social Work Note: Continued Discharge Planning/Multidisciplinary Rounds Data& Assessment: Pt was discussed in AM rounds today, per MD pt is not medically ready to discharge at this time. ID MD still following. SW to continue to follow to r/o IV ABX. SW met with pt at bedside to check in and assess for any unmet needs. Pt states she is concentrating on getting better. Pt denies any needs at this time. SW to continue to follow. Plan: Anticipated discharge home via POV when medically ready. SW to continue to follow to r/o IV ABX.SW to continue to follow. DAYLIN Briones
--- NOTE | 2016-09-18 18:30 | PCM.PNMED ---
Subjective Date of Service Sep 18, 2016 Subjective Patient continues to have RLQ abdominal pain that improved slightly with Tramadol per nursing staff. No other acute event overnight. Today, patient states that the Tramadol does not give her as much pain relief as the Morphine. However, she is ok with it and does not have any complaint. She reports normal BM and urination. She denies any nausea, vomiting, headache, or dizziness. Exam Vital Signs Vital Sign - Last Date Time Temp Pulse Resp B/P Pulse Ox O2 Delivery O2 Flow Rate FiO2 09/18/16 09:03 36.6 78 17 121/81 100 Room Air 09/13/16 12:00 3.00 Intake and Output 09/17/16 09/17/16 09/18/16 Cumulative From/Thru 15:00 23:00 07:00 09/12/16 17:51 - 09/18/16 06:30 Intake Total 980 ml 1330 ml 1309 ml 98157 ml Output Total 100 ml 2400 ml 1000 ml 85625 ml Balance 880 ml -1070 ml 309 ml 3274 ml Intake Oral 980 ml 680 ml 637 ml 7944 ml IV Total 650 ml 672 ml 28498 ml Output Urine Total 100 ml 2400 ml 1000 ml 88135 ml # Bowel Movements 1 0 1 Exam General: Obese female, sitting on the hospital bed, in no acute distress. HEENT: Normocephalic, atraumatic. Oropharynx mildly dry with pink mucosa. Neck: Supple, No jugular venous distension. Cardiovascular: normal rate and rhythm, no murmur appreciated, pacemaker palpable in upper chest. Pulmonary: Clear to auscultation bilaterally with no crackles, wheezes, or rhonchi. Abdomen: Bowel tones are normoactive. Abdomen is soft but obese. no guarding or rebound, no rashes noted, nondistended, mild tenderness to palpation in the RLQ. Extremities: no cyanosis, clubbing, or edema. Warm to touch. Skin: Some mild confluent chronic vascular changes of bilateral forearm, skin is otherwise warm dry and intact. Neurological: alert and oriented, CN II-XII intact, sensation intact, moving all extremities. Psych: normal mood and affect, normal speech. Poor judgment and insight. IVs and Medications Medications Reviewed: Medications were reviewed in detail Lab and Diagnostics Result Diagram: 09/17/160 09/17/16 0400 X-Rays, CTs and MRIs PROCEDURE: CT ABDOMEN AND PELVIS WITH CONTRAST ([id number]) IMPRESSION: 1. Small amount of nonspecific intraperitoneal free fluid in the right paracolic gutter and subhepatic space redemonstrated, similar to the prior study. No loculated abscess collection identified. 2. No evidence of pyelonephritis, hydronephrosis, or perinephric abscess. 12-lead ECG V-paced EKG with no acute St changes. 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 #Corynebacterium bacteremia, POA, active. unclear source, possibly contaminant, perihepatic fluid, infected PPM, 2/8 bottles grew Corynebacterium on 09/12 and . Limited Echo shows no significant change from the previous echo. No evidence of vegetations. - WBC trending down. Procalcitonin is slightly up at 1.74 from 1.28. Continue to trend, serial BCX 09/14, 09/16 remained ngtd - Appreciate Dr. Ambrose's input. Will continue with Vancomycin as the sole antibiotic while waiting for recent blood culture results. - No other symptoms and sign of infection. Follow clinically. # DKA in the setting of Brittle [id number], POA, resolved. Patient presented with abdominal pain, nausea, and vomiting on admission. Patient's BG rapidly increased from 125 at admission to 1046. Blood gas reveald pH 6.9 and Bicarb of 3.5. Large serum ketone. Lactic acid of 5.2. Anion gap of 33. - DKA protocol with insulin drip was discontinued. - Pt is clinically improved. replete K,Mg as needed. - Insulin regimen as below. # RLQ Abdominal Pain, POA, unclear etiology. CT abdo is equivocal, a small amount of nonspecific intraperitoneal free fluid in the right paracolic gutter and subhepatic space redemonstrated, similar to the prior study. No loculated abscess collection identified. Possibly due to progressing DKA. However, no other evidence of infections. Repeat US 09/17 showed minimal perihepatic fluid, unclear if this is related to her pain, could be from scar tissue as Patient also has a history of endometriosis and large uterine fibroids. She is s/p right oophorectomy and appendectomy although pt thinks this is new onset. There is possibility of drug seeking as well. -pt remained clinically stable. -Continue with Tramadol for pain control. chronic, stable Systolic CHF, chronic, stable. - Last Echo in June 2016 showed EF to be 25-30%. Limited Echo shows no change. - No signs or symptoms of fluid overload or decompensation. - Continue home spironolactone, Lisinopril, and Metoprolol. Will also resume Lasix today. - Closely monitor I/Os Type I diabetes mellitus with diabetic polyneuropathy, uncontrolled. - Patient is a brittle diabetic who is fairly uncontrolled. A1c at the last visit was 11.1. - Her morning BG has been elevated. Will increase Lantus from 25 to 30 units HS and continue 20 units in the morning. - Continue high correctional scale. - Outpatient follow up with Dr.Miller Berry already scheduled for next month CAD of a gambell artery, POA - Stable, no anginal symptoms on admission - Continue home medications: Lipitor, Lisinopril, and ASA. - Patient is also on Eliquis for PEs. Continue Eliquis. Complete heart block s/p pacemaker, POA - V-paced, stable - Placed on Telemetry for CV monitoring Chronic Mood Disorders, POA - History of PTSD, DAISY, and Depression - will continue Amitriptyline 25 mg takes 2-4 tablets by mouth at bedtime, Ativan 1 mg QID PRN - We will continue Venlafaxine ER 150 mg daily . Dyslipidemia, chronic. - Continue Atorvastatin 80 mg tablet daily Chronic pain disorder, POA - Secondary to degenerative disease of Lumbars - Currently has IV morphine for pain management. Wi Hypothyroidism with history of Graves' disease - TSH 4.8 with a low T4 of 0.65. Patient takes Levothyroxine 250 g daily at home. - Will increase to 275mcg. - Check TSH in 6-8 weeks as outpatient. Chronic GERD - Continue Pantoprazole 40 mg 2 times daily. Tylenol for fever as needed Bowel regimen for constipation as needed CODE STATUS: Full resuscitation dispo:pt is clinically stable, coordinate with ID for dispo. Pain Evaluation: Adequate Pain Control GI Prophylaxis: Proton Pump Inhibitor VTE Prophylaxis: Other VTE Mechanical Devices: Intermittant Pneumatic CD Resuscitation Status: CPR: Attempt Resuscitation Attending Statement The patient was seen and examined with staff. Agree with all attached documentation. Tanmay Logan DO Sep 18, 2016 10:13 Gonzalez Arreaga MD Sep 19, 2016 16:47
--- NOTE | 2016-09-18 21:00 | NUR ---
Transferred to [facility] after given report to Rai ELIZABETH. Pt denies chest pain and shortness of breath. Tele removed per d/c orders.
[2016-09-18] MEDS ORDERED: 0.9% Sodium Chloride 250 ML ONE (21:14)
[2016-09-19] MEDS: Vancomycin Inj 1,250 MG in 0.9% Sodium Chloride 250 ML IV SCH ×3 (01:35→18:22)
[2016-09-19 04:40] VITALS: BP 105/71; PULSE 71; RESP 18; O2SAT 99
[2016-09-19] MEDS: Insulin LISPRO 300 Unit/3 mL Inj SUBQ SCH ×4 (08:00→21:55)
[2016-09-19] MEDS: Vancomycin Dose per Pharmacist XX SCH (08:30)
[2016-09-19 08:48] LABS: Mean Corpuscular Hemoglobin 29.1 pg (27.0-35.0); Mean Corpuscular Volume 91.8 fL (81-100); Platelet Count 226 bil/L (150-400)
[2016-09-19 08:49] LABS: EOSINOPHILS % (AUTO) 2.4 % (0-5); MONOCYTES % (AUTO) 9.7 % (4-12)
[2016-09-19 09:28] LABS: Magnesium 1.9 mg/dL (1.6-2.6)
[2016-09-19] MEDS: HYDROcodone-APAP 5-325 mg Tablet PO PRN ×4 (10:31→23:30)
[2016-09-19] MEDS: Venlafaxine XR 75 mg ER24 Capsule PO SCH (10:31)
[2016-09-19] MEDS: MeTOProlol XL 50 mg ER24 Tablet PO SCH ×2 (10:32→22:05)
[2016-09-19] MEDS: Pantoprazole 40 mg ER24 Tablet PO SCH ×2 (10:32→17:42)
[2016-09-19] MEDS: Insulin GLARgine 100 Unit/mL Syringe SUBQ SCH ×2 (10:34→22:06)
[2016-09-19] MEDS: Nystatin 100,000 Unit/Gm 15 Gm Powder TOPICAL SCH ×2 (10:36→22:05)
--- NOTE | 2016-09-19 12:36 | PROG NOTE ---
[address] [address] PROGRESS NOTE PATIENT: KAYLEE TURNER : 1980 MR#: [id number] ADMIT: 09/12/2016 JOB ID: [id number] INFECTIOUS DISEASE FOLLOWUP: DATE: 09/19/2016 REASON FOR FOLLOWUP: Possible pacer infection with Corynebacterium bacteremia. INTERVAL HISTORY: The patient reports that today she is feeling a little bit worse. She notes that she had some significant night sweats overnight but no fever or chills. She has a minimal amount of headache and is short of breath with exertion but not at rest. No significant cough. No chest pain. No nausea, vomiting, diarrhea. PHYSICAL EXAMINATION: Reveals a reasonably comfortable woman who does not look quite as good as yesterday; however she looks a bit downcast. Temperature 36.6, pulse 71, respiratory rate 18, blood pressure 105/71. She is saturating 99% on room air. Oral cavity is negative. Eyes without conjunctival abnormalities. Lungs relatively clear anteriorly. Cardiac tones without new murmur. The right axillary pacer is minimally tender though there is no overlying erythema or abnormality. The abdomen is obese, soft, and nontender. No skin rashes or peripheral stigmata of endocarditis are noted. LABORATORY DATA: Labs include a white count that started off at elevated at 26,000 range; it is all the way down to normal now 7400 with normal diff. Her procalcitonin has followed a similar pattern. It was as high as 1.74. It is now down to 0.14, so a 90% reduction. LFTs normal. Alk phos 205, slightly increased over prior values. Urinalysis had 11-50 red cells which is unexplained and she had only 0-5 white cells. Micro studies include 1 out of 4 blood cultures from admission and 1 out of 4 from two days later which grew the unusual species of Corynebacterium aurimucosum. The MICs of this indicate that it was extraordinarily susceptible to daptomycin, linezolid and vancomycin and intermediate susceptibility to penicillin. Followup blood cultures after those initial two positive bottles have all been negative. IMPRESSION: This case comes down to a simple dichotomy. Either Corynebacterium found in her blood are contaminants arising from skin in one of four of each two consecutive sets of blood cultures, or she likely has a pacer infection. This particular species of Corynebacterium has very rarely been implicated as a human pathogen but could be in terms of prosthetic devices or implants. The situation here would be infection of the pacer. My overall inclination is that her pacer is not infected but the patient does have an elevated procalcitonin which has normalized with vancomycin therapy and her white count was high and has normalized with the vancomycin therapy. Clearly part of her initial presentation was the diabetic ketoacidosis but that in and of itself should not produce the procalcitonin. I have discussed this case with the two labor delivery specialist doctors, Ivon and Eric today and yesterday. Our overall sense is that we will need a transesophageal echocardiogram to as much as we cannot exclude the possibility of infection of the pacer. Assuming the transesophageal echocardiogram is negative I think we could discharge the patient soon and do followup outpatient blood cultures to make sure the Corynebacterium bacteremia does not return. RECOMMENDATIONS: 1. AJIT tomorrow. I have discussed this with Dr. Reyes, but a formal request to Cardiology should be placed. 2. I made the patient n.p.o. after midnight to facilitate that study tomorrow. 3. Will continue with the IV vancomycin.
[2016-09-19 12:39] VITALS: BP 97/65; PULSE 72; RESP 18; O2SAT 99
--- NOTE | 2016-09-19 14:14 | PCM.PNMED ---
Subjective Date of Service Sep 19, 2016 Subjective Abdominal pain in right lower quadrant is patient's main complaint today. Still experiencing some upper right-sided chest pain as well. Denies fever and chills overnight. No other acute complaints at this time. Exam Vital Signs Vital Sign - Last Date Time Temp Pulse Resp B/P Pulse Ox O2 Delivery O2 Flow Rate FiO2 09/19/16 12:39 36.6 72 18 97/65 99 Room Air 09/13/16 12:00 3.00 Intake and Output 09/18/16 09/18/16 09/19/16 Cumulative From/Thru 15:00 23:00 07:00 09/12/16 17:51 - 09/19/16 05:38 Intake Total 1424 ml 400 ml 17308 ml Output Total 2500 ml 20805 ml Balance -1076 ml 400 ml 2598 ml Intake Oral 1040 ml 400 ml 9384 ml IV Total 384 ml 55441 ml Output Urine Total 2500 ml 70965 ml # Voids 1 1 # Bowel Movements 1 General: Alert, Oriented X3, Cooperative, Mild Distress Mouth: Mucous Membr Moist/[place] Chest & Lungs: Clear to auscultation & percussion Cardiovascular: Regular Rate/Rhythm, No Murmurs/Rubs/Gallops Abdomen: Tender, Non-distended, Other (patient is obese and is present with mild skin irritation noted in intertriginous region. Pain noted right lower quadrant on palpation without guarding. ) Extremities: No cyanosis/clubbing/edma bilat Neurological: Grossly Neurologically Intact IVs and Medications Medications Reviewed: Medications were reviewed in detail Lab and Diagnostics Result Diagram: 09/19/16 0830 09/19/16 0830 X-Rays, CTs and MRIs PROCEDURE: CT ABDOMEN AND PELVIS WITH CONTRAST ([id number]) IMPRESSION: 1. Small amount of nonspecific intraperitoneal free fluid in the right paracolic gutter and subhepatic space redemonstrated, similar to the prior study. No loculated abscess collection identified. 2. No evidence of pyelonephritis, hydronephrosis, or perinephric abscess. 12-lead ECG V-paced EKG with no acute St changes. 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 #Corynebacterium bacteremia, POA, active. unclear source, possibly contaminant, perihepatic fluid, infected PPM, 2/8 bottles grew Corynebacterium on 09/12 and . Limited Echo shows no significant change from the previous echo. No evidence of vegetations. - WBC trending down. Procalcitonin is slightly up at 1.74 from 1.28. Continue to trend, serial BCX 09/14, 09/16 remained ngtd - Appreciate Dr. Ambrose's input. Will continue with Vancomycin as the sole antibiotic while waiting for recent blood culture results. - No other symptoms and sign of infection. Follow clinically. - Plan is now for transesophageal echocardiogram to be conducted tomorrow, to definitively rule in or rule out possibility of infected pacemaker or possible cardiac regurgitation. - We will continue vancomycin at this time as noted above pending this study. # DKA in the setting of Brittle [id number], POA, resolved. Patient presented with abdominal pain, nausea, and vomiting on admission. Patient's BG rapidly increased from 125 at admission to 1046. Blood gas reveald pH 6.9 and Bicarb of 3.5. Large serum ketone. Lactic acid of 5.2. Anion gap of 33. - DKA protocol with insulin drip was discontinued. - Pt is clinically improved. replete K,Mg as needed. - Insulin regimen as below. # RLQ Abdominal Pain, POA, unclear etiology. CT abdo is equivocal, a small amount of nonspecific intraperitoneal free fluid in the right paracolic gutter and subhepatic space redemonstrated, similar to the prior study. No loculated abscess collection identified. Possibly due to progressing DKA. However, no other evidence of infections. Repeat US 09/17 showed minimal perihepatic fluid, unclear if this is related to her pain, could be from scar tissue as Patient also has a history of endometriosis and large uterine fibroids. She is s/p right oophorectomy and appendectomy although pt thinks this is new onset. There is possibility of drug seeking as well. -pt remained clinically stable. -Given persistent pain which is in poor control we will transition to [place] and attempt to better control pain while in hospital. chronic, stable Systolic CHF, chronic, stable. - Last Echo in June 2016 showed EF to be 25-30%. Limited Echo shows no change. - No signs or symptoms of fluid overload or decompensation. - Continue home spironolactone, Lisinopril, and Metoprolol. Will also resume Lasix today. - Closely monitor I/Os Type I diabetes mellitus with diabetic polyneuropathy, uncontrolled. - Patient is a brittle diabetic who is fairly uncontrolled. A1c at the last visit was 11.1. - Her morning BG has been elevated. Will increase Lantus from 25 to 30 units HS and continue 20 units in the morning. - Continue high correctional scale. - Outpatient follow up with Dr.Miller Berry already scheduled for next month CAD of a [place] artery, POA - Stable, no anginal symptoms on admission - Continue home medications: Lipitor, Lisinopril, and ASA. - Patient is also on Eliquis for PEs. Continue Eliquis. Complete heart block s/p pacemaker, POA - V-paced, stable - Placed on Telemetry for CV monitoring Chronic Mood Disorders, POA - History of PTSD, DAISY, and Depression - will continue Amitriptyline 25 mg takes 2-4 tablets by mouth at bedtime, Ativan 1 mg QID PRN - We will continue Venlafaxine ER 150 mg daily . Dyslipidemia, chronic. - Continue Atorvastatin 80 mg tablet daily Chronic pain disorder, POA - Secondary to degenerative disease of Lumbars - Currently has IV morphine for pain management. Wi Hypothyroidism with history of Graves' disease - TSH 4.8 with a low T4 of 0.65. Patient takes Levothyroxine 250 g daily at home. - Will increase to 275mcg. - Check TSH in 6-8 weeks as outpatient. Chronic GERD - Continue Pantoprazole 40 mg 2 times daily. Tylenol for fever as needed Bowel regimen for constipation as needed CODE STATUS: Full resuscitation dispo:pt is clinically stable, coordinating with ID for dispo. Pain Evaluation: Adequate Pain Control GI Prophylaxis: Proton Pump Inhibitor VTE Prophylaxis: Other VTE Mechanical Devices: Intermittant Pneumatic CD Resuscitation Status: CPR: Attempt Resuscitation Time spent 30 minutes Genaro Day DO Sep 19, 2016 14:14
[2016-09-19 21:51] VITALS: BP 115/72; PULSE 77; RESP 20; O2SAT 100
[2016-09-20] VITALS (10 sets, daily range): BP systolic 88–121; BP diastolic 47–79; PULSE 68–83; RESP 12–19; O2SAT 98–100
[2016-09-20] MEDS: Vancomycin Inj 1,250 MG in 0.9% Sodium Chloride 250 ML IV SCH (03:21)
[2016-09-20] MEDS ORDERED: 0.9% Sodium Chloride 250 ML ONE (03:23)
[2016-09-20] MEDS: HYDROcodone-APAP 5-325 mg Tablet PO PRN (03:28)
--- NOTE | 2016-09-20 06:20 | NUR ---
Pain Pt reporting consistent pain to right lower abdomen that radiates to back at 7/10. Medicating pt with 1 tab vicodin for pain control. Pt reports no change in pain level this shift. Call light within reach, frequent rounding, NPO after midnight.
[2016-09-20] MEDS: Potassium Chloride 20 mEq SR Tablet PO SCH (07:57)
[2016-09-20] MEDS: Venlafaxine XR 75 mg ER24 Capsule PO SCH (07:58)
[2016-09-20] MEDS: Pantoprazole 40 mg ER24 Tablet PO SCH ×2 (07:58→21:06)
[2016-09-20] MEDS: Insulin LISPRO 300 Unit/3 mL Inj SUBQ SCH ×4 (08:00→21:08)
[2016-09-20] MEDS: Nystatin 100,000 Unit/Gm 15 Gm Powder TOPICAL SCH ×2 (08:04→21:06)
[2016-09-20] MEDS: Insulin GLARgine 100 Unit/mL Syringe SUBQ SCH ×2 (08:04→21:07)
--- NOTE | 2016-09-20 08:06 | PCM.PNMED ---
Subjective Date of Service Sep 20, 2016 Subjective Still in a good deal of pain in both lower abdomen and chest. Not much better treated with medication changes made yesterday. Nervous about procedure today but also understand importance. No other acute complaints at this time. Denies fever/chills/sweats Exam Vital Signs Vital Sign - Last Date Time Temp Pulse Resp B/P Pulse Ox O2 Delivery O2 Flow Rate FiO2 09/20/16 05:58 104/68 09/20/16 05:30 36.4 68 17 98 Room Air Intake and Output 09/19/16 09/19/16 09/20/16 Cumulative From/Thru 15:00 23:00 07:00 09/12/16 17:51 - 09/20/16 06:03 Intake Total 800 ml 813 ml 99133 ml Output Total 2200 ml 700 ml 33367 ml Balance -1400 ml 113 ml 1311 ml Intake Oral 800 ml 200 ml 77290 ml IV Total 613 ml 76390 ml Output Urine Total 2200 ml 700 ml 64620 ml # Voids 1 # Bowel Movements 1 Exam General: Alert, Oriented X3, Cooperative, Mild Distress Mouth: Mucous Membr Moist/[place] Chest & Lungs: Clear to auscultation & percussion Cardiovascular: Regular Rate/Rhythm, No Murmurs/Rubs/Gallops Abdomen: Tender, Non-distended. Pain noted right lower quadrant on palpation without guarding. IVs and Medications Medications Reviewed: Medications were reviewed in detail Lab and Diagnostics Result Diagram: 09/19/16 0830 09/19/16 0830 X-Rays, CTs and MRIs PROCEDURE: CT ABDOMEN AND PELVIS WITH CONTRAST ([id number]) IMPRESSION: 1. Small amount of nonspecific intraperitoneal free fluid in the right paracolic gutter and subhepatic space redemonstrated, similar to the prior study. No loculated abscess collection identified. 2. No evidence of pyelonephritis, hydronephrosis, or perinephric abscess. 12-lead ECG V-paced EKG with no acute St changes. 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 #Corynebacterium bacteremia, POA, active. unclear source, possibly contaminant, perihepatic fluid, infected PPM, 2/8 bottles grew Corynebacterium on 09/12 and . Limited Echo shows no significant change from the previous echo. No evidence of vegetations. - WBC trending down. Procalcitonin is slightly up at 1.74 from 1.28. Continue to trend, serial BCX 09/14, 09/16 remained ngtd - Appreciate Dr. Ambrose's input. Will continue with Vancomycin as the sole antibiotic while waiting for recent blood culture results. - No other symptoms and sign of infection. Follow clinically. - transesophageal echocardiogram is scheduled for today to evaluate for possible source of bacteria noted in blood cultures. - We will continue vancomycin at this time as noted above pending this study. # DKA in the setting of Brittle [id number], POA, resolved. Patient presented with abdominal pain, nausea, and vomiting on admission. Patient's BG rapidly increased from 125 at admission to 1046. Blood gas reveald pH 6.9 and Bicarb of 3.5. Large serum ketone. Lactic acid of 5.2. Anion gap of 33. - DKA protocol with insulin drip was discontinued. - Pt is clinically improved. replete K,Mg as needed. - Insulin regimen as below. # RLQ Abdominal Pain, POA, unclear etiology. CT abdo is equivocal, a small amount of nonspecific intraperitoneal free fluid in the right paracolic gutter and subhepatic space redemonstrated, similar to the prior study. No loculated abscess collection identified. Possibly due to progressing DKA. However, no other evidence of infections. Repeat US 09/17 showed minimal perihepatic fluid, unclear if this is related to her pain, could be from scar tissue as Patient also has a history of endometriosis and large uterine fibroids. She is s/p right oophorectomy and appendectomy although pt thinks this is new onset. There is possibility of drug seeking as well. -pt remained clinically stable. -Given persistent pain which is in poor control even with transition to [place], revert back to IV morphine while PT NPO. chronic, stable Systolic CHF, chronic, stable. - Last Echo in June 2016 showed EF to be 25-30%. Limited Echo shows no change. - No signs or symptoms of fluid overload or decompensation. - Continue home spironolactone, Lisinopril, and Metoprolol. Will also resume Lasix today. - Closely monitor I/Os Type I diabetes mellitus with diabetic polyneuropathy, uncontrolled. - Patient is a brittle diabetic who is fairly uncontrolled. A1c at the last visit was 11.1. - Her morning BG has been elevated. Will increase Lantus from 25 to 30 units HS and continue 20 units in the morning. - Continue high correctional scale. - Outpatient follow up with Dr.Miller Berry already scheduled for next month CAD of a [place] artery, POA - Stable, no anginal symptoms on admission - Continue home medications: Lipitor, Lisinopril, and ASA. - Patient is also on Eliquis for PEs. Continue Eliquis. Complete heart block s/p pacemaker, POA - V-paced, stable - Placed on Telemetry for CV monitoring Chronic Mood Disorders, POA - History of PTSD, DAISY, and Depression - will continue Amitriptyline 25 mg takes 2-4 tablets by mouth at bedtime, Ativan 1 mg QID PRN - We will continue Venlafaxine ER 150 mg daily . Dyslipidemia, chronic. - Continue Atorvastatin 80 mg tablet daily Chronic pain disorder, POA - Secondary to degenerative disease of Lumbars - Currently has IV morphine for pain management. Wi Hypothyroidism with history of Graves' disease - TSH 4.8 with a low T4 of 0.65. Patient takes Levothyroxine 250 g daily at home. - Will increase to 275mcg. - Check TSH in 6-8 weeks as outpatient. Chronic GERD - Continue Pantoprazole 40 mg 2 times daily. Tylenol for fever as needed Bowel regimen for constipation as needed CODE STATUS: Full resuscitation dispo:pt is clinically stable, coordinating with ID for dispo. Pain Evaluation: Adequate Pain Control GI Prophylaxis: Proton Pump Inhibitor VTE Prophylaxis: Other VTE Mechanical Devices: Intermittant Pneumatic CD Resuscitation Status: CPR: Attempt Resuscitation Time spent 25 minutes Genaro Day DO Sep 20, 2016 08:06
[2016-09-20] MEDS: MeTOProlol XL 50 mg ER24 Tablet PO SCH ×2 (08:07→21:06)
[2016-09-20 08:13] LABS: INR 0.95 ratio
[2016-09-20] MEDS: Vancomycin Dose per Pharmacist XX SCH (08:30)
[2016-09-20] MEDS ORDERED: Vancomycin Serum Trough XX ONE (10:00)
--- NOTE | 2016-09-20 12:27 | NUR ---
Patient tx to [facility] bed 1 for transesophageal echocardiogram with Dr Johnson.Pt is alert and oriented, reports pain lower abdomen and right axillary 7/10.I informed her that we would be sedating her shortly for procedure.Pt had been NPO since midnight, blood glucose is 122, right 22g forearm iv is saline locked and produces excellent blood return, flushed with 10cc saline.
[2016-09-20] MEDS ORDERED: Flumazenil 0.1 mg/mL 5 mL Inj IV ONE (12:33)
[2016-09-20] MEDS: fentaNYL-PF 50 mCg/mL 2 mL Inj IVPUSH PRN ×2 (13:00→16:04)
--- NOTE | 2016-09-20 14:25 | DRSVH ---
[facility] [address] [place] [address] Echocardiogram Report Name: KAYLEE TURNER MStudy Date: 0 09/20/2016 Height: 64 in Hospital Exam Location: [facility] Weight: 207 lb Gender: Female BSA: 2.0 m2 : 1980 Age: 36 yrs BP: 104/68 mmHg Reason For Study: Endocarditis Ordering Physician: Performed By: Nuria Tay Referring Physician: SALONI GUTIERREZ Interpretation Summary Left ventricular systolic function is moderate to severely reduced. The ejection fraction is estimated to be 30-35%. In the right atrium, there are multiple echogenic structures which have independent oscillation. All of these filamentous masses are attached to atrial lead and possible RV lead. However there a larger mass (1.2 x 1.6 cm) that appears to be more globular than filamentous at the IVC and atrial junction which makes this more suspicious for thrombus rather than a vegetative mass. Recommend ordering ultrasound imaging to further delineate this. Given the positive blood cultures and findings on today's AJIT, multiple masses in right atrial chamber are most consistent with vegetations but cannot exclude possible thrombus at the IVC and right atrial junction. Findings were discussed with Dr. Del Valle and Dr. Gutierrez. Procedure: Informed consent for Transesophageal Echocardiogram, and use of a contrast agent as needed, was obtained prior to the procedure. The patient was brought to the [facility] in a fasting state. An intravenous line was placed. A topical anesthetic agent was used for oropharangeal anesthesia. A bite block was inserted. A 2D transesophageal echocardiogram with spectral and color flow Doppler was performed. Comparison is made with the echocardiogram of 09/15/2016. IV concious sedation was administered using versed and fentanyl. The transesophageal probe was passed without difficulty. The usual views were obtained; basal, mid-esophageal, transgastric and aortic views. The patient's vital signs, including blood pressure, heart rate, pulse oximetry and cardiac rhythm were monitored throughout the procedure and remained stable. The patient tolerated the procedure well without evidence of orophangeal or esophageal trauma. The patient has a paced rhythm. There were no complications. Left Ventricle: The left ventricle is grossly normal size. Left ventricular systolic function is moderate to severely reduced. The ejection fraction is estimated to be 30-35%. There is moderate global hypokinesis of the left ventricle. Right Ventricle: The right ventricle is normal size. Right ventricular systolic function is borderline reduced. Mitral Valve: The mitral valve is normal in structure and function. There is no vegetation seen on the mitral valve. There is mild mitral regurgitation. Aortic Valve: The aortic valve is trileaflet. The aortic valve opens well. There is no aortic valvular vegetation. There is mild aortic regurgitation. Tricuspid Valve: The tricuspid valve leaflets are thin and pliable. There is no tricuspid valve vegetation. There is mild to moderate tricuspid regurgitation. Right ventricular systolic pressure is estimated to be 23 mmHg plus the clinically estimated CVP which cannot be estimated on this exam. Pulmonic Valve: The pulmonic valve is not well seen, but is grossly normal. There is no vegetation on the pulmonic valve. There is no pulmonic valvular regurgitation. Great Vessels: The aortic root is normal size. Pericardium/ Pleura: There is no pericardial effusion. Doppler Measurements & Calculations TR max gianni: 240.1 cm/sec TR max P.1 mmHg Reading Physician:ALVINO
--- NOTE | 2016-09-20 14:42 | NUR ---
Report given to Pepe Moore on [facility].Pt returned to room alert, and oriented.She is taking P>O fluids and eating crackers, father at bedside.
--- NOTE | 2016-09-20 15:37 | PROG NOTE ---
[address] [address] PROGRESS NOTE PATIENT: KAYLEE TURNER : 1980 MR#: [id number] ADMIT: 09/12/2016 JOB ID: [id number] DATE: 09/20/2016 INFECTIOUS DISEASE FOLLOWUP NOTE: REASON FOR FOLLOWUP: Probable pacer infection with carinii bacteria. INTERVAL HISTORY: The patient reports she continues to have some subjective sweats and some aching at the site of her right chest pacer implant site. She reports that ever since the pacer was installed back in June there has been some pain there. No warmth, redness, or drainage, however. She otherwise has no new complaints. She is mildly short of breath with exertion but that has been baseline. No GI symptoms. PHYSICAL EXAMINATION: Reveals a reasonably healthy obese woman, in no acute distress. Temperature 36.4, pulse 73, respiratory rate 18, blood pressure 120/57. She is saturating 99% on room air. Eyes without conjunctival hemorrhage. Oral cavity benign. Lungs fairly clear. Cardiac tones without murmur. The pacer is palpated in the right upper axilla really. It is minimally tender to palpation. Subjectively tender with no erythema, drainage, or warmth. The abdomen is essentially benign. LABORATORIES: Include white count which has normalized to 7200. Creatinine 0.48 yesterday. Procalcitonin 0.14, down from a peak of 1.74 when she was admitted, so about a 90% decline. Urinalysis without white cells. The blood culture situation. On the , which is the day she was admitted with hyperosmolar, ketotic state, 1/4 blood cultures grew corynebacterium. Unfortunately, on the , 1/4 grew the same corynebacterium species. The species is aurimucosum, so Corynebacterium aurimucosum, which turns out to be exquisitely sensitive to vancomycin, daptomycin and linezolid, with intermediate susceptibility to penicillin. Today's main news is the transesophageal echo, which I have discussed in great detail with Dr. Johnson. The transesophageal echo was done this morning, and it shows, unfortunately, multiple echogenic structures with independent oscillation. These filamentous masses are attached to the atrial lead and probably the RV lead as well. In addition, there is a larger mass that is more globular than filamentous at the IVC/atrial junction. It is thought this may be a thrombus rather than a vegetative mass. Dr. Johnson believes that given the positive blood cultures on two different days, as well as today's AJIT findings, that it is most likely the pacer is infected. There may also be a thrombus in the IVC. IMPRESSION: Probable pacer infection with this unusual corynebacterium species, which has rarely been implicated as a human pathogen. RECOMMENDATIONS: 1. I explained the echo results to the best of my ability to the patient and her father. 2. We discussed what options may exist in terms of pacer removal and replacement. 3. We also discussed the need for prolonged IV antibiotics. 4. For now, I would continue the patient on vancomycin with the plan to extend that therapy for probably six weeks or more depending on what happens with respect to the pacer and its replacement. 5. Daptomycin would be an alternative, as might be linezolid, depending on drug interactions if need be. 6. Note that I be on vacation in the next nine days but I can be reached on my cell phone or text as needed about this or any other patient. 7. Also note that I discussed this case in detail with Dr. Day, as well as Dr. Johnson.
[2016-09-20] MEDS: Vancomycin Inj 1,000 MG in IV Premix 1 EACH IV SCH ×2 (16:21→20:03)
--- NOTE | 2016-09-20 16:23 | NUR ---
Social Work: Multidisciplinary Rounds Pt discussed in rounds. Pt having AJIT today, ABX to be determined after this. ENGINE HEAD REPAIRER will continue to follow for possible d/c planning needs. DAYLIN Coy
[2016-09-20] MEDS: 0.9% Sodium Chloride 1,000 ML IV SCH (16:29)
[2016-09-20] MEDS: Sodium Chloride LOK Flush 10 mL Syringe IVFLUSH SCH (16:41)
--- NOTE | 2016-09-20 17:05 | DRSVH ---
PROCEDURE: US ABDOMEN, LIMITED ([id number]) INDICATIONS: US IVC-? thrombus TECHNIQUE: Real-time focused scanning was performed of the abdomen, with image documentation. COMPARISON: None. FINDINGS: Exam is limited to evaluation of the inferior vena cava which imaging shows to be patent wi th no filling defects seen. IMPRESSION: Patent IVC Dictated by: Jacky Vogel M.D. on 09/20/2016 at 17:02 Approved by: Jacky Vogel M.D. on 09/20/2016 at 17:03
--- NOTE | 2016-09-20 18:41 | NUR ---
Discharge Nursing Note: Patient was discharged to home at 1830. Her IV was removed intact. Her telemetry was discontinued . Patients discharge information was reviewed with her and her questions were answered to her satisfaction. Patient was escorted to the hospital lobby by nursing staff member and she was driven to home by her daughter. Addendum: 09/20/16 at 1927 by TONIA HECTOR RN WRONG PATIENT: This note was meant for another patient.
--- NOTE | 2016-09-20 19:27 | NUR ---
Pain: Patient is still complaining of her back hurting and radiating to the front of her abdomen. IV Morphine was given x 2 with good relief. Patient went for her AJIT today. Dr Ambrose is following patients care with the findings.
[2016-09-21] MEDS: Sodium Chloride LOK Flush 10 mL Syringe IVFLUSH SCH ×3 (00:30→16:02)
[2016-09-21] MEDS: Vancomycin Inj 1,000 MG in IV Premix 1 EACH IV SCH ×3 (04:33→20:30)
[2016-09-21] MEDS: 0.9% Sodium Chloride 1,000 ML IV SCH ×3 (04:34→16:02)
[2016-09-21 04:56] VITALS: BP 106/69; PULSE 68; RESP 20; O2SAT 99
--- NOTE | 2016-09-21 05:49 | NUR ---
Pain Pt reporting pain to right abdomen and right Pacemaker site 09/09 this shift. Medicating pt with 2 mg IV morphine Q4 hours, pt stating good pain relief. Call light within reach, frequent rounding.
[2016-09-21] MEDS: Vancomycin Dose per Pharmacist XX SCH (08:30)
[2016-09-21] MEDS: Nystatin 100,000 Unit/Gm 15 Gm Powder TOPICAL SCH ×2 (08:36→20:56)
[2016-09-21] MEDS: Venlafaxine XR 75 mg ER24 Capsule PO SCH (08:37)
[2016-09-21] MEDS: MeTOProlol XL 50 mg ER24 Tablet PO SCH ×2 (08:38→20:53)
[2016-09-21] MEDS: Potassium Chloride 20 mEq SR Tablet PO SCH (08:38)
[2016-09-21] MEDS: Pantoprazole 40 mg ER24 Tablet PO SCH ×2 (08:38→16:56)
[2016-09-21] MEDS: Insulin GLARgine 100 Unit/mL Syringe SUBQ SCH ×2 (08:39→20:59)
[2016-09-21] MEDS: Insulin LISPRO 300 Unit/3 mL Inj SUBQ SCH ×4 (08:39→21:01)
[2016-09-21 14:13] VITALS: BP 109/70; PULSE 81; RESP 20; O2SAT 96
--- NOTE | 2016-09-21 15:15 | NUR ---
Social Work: Continued d/c planning / Multidisciplinary Rounds Data: Pt is on day 9 of hospitalization. EMR reviewed, pt discussed in rounds. MD states pt's cultures came back after AJIT and ID states she will need a lot of work up either at [facility] or possible transfer to [facility]. ELECTRICAL DESIGNER DRAFTER will continue to follow. Assessment: Pt who is independent at baseline, capable of self care at this time. Plan: Pt will possibly transfer to [facility] or home with possible need for IVABX at d/c. ELECTRICAL DESIGNER DRAFTER will continue to follow. DAYLIN Coy
--- NOTE | 2016-09-21 17:10 | PCM.PNMED ---
Subjective Date of Service Sep 21, 2016 Subjective Patient notes no acute changes in her condition. Pain is under improved control changes in medications. Denies any fever or chills overnight. Chest pains essentially unchanged Exam Vital Signs Vital Sign - Last Date Time Temp Pulse Resp B/P Pulse Ox O2 Delivery O2 Flow Rate FiO2 09/21/16 14:13 36.9 81 20 109/70 96 Room Air 09/20/16 13:45 3.00 Intake and Output 09/20/16 09/20/16 09/21/16 Cumulative From/Thru 15:00 23:00 07:00 09/12/16 17:51 - 09/21/16 06:14 Intake Total 723 ml 1728 ml 39080 ml Output Total 650 ml 3100 ml 06684 ml Balance 73 ml -1372 ml 12 ml Intake Oral 723 ml 400 ml 81623 ml IV Total 1328 ml 84005 ml Output Urine Total 650 ml 3100 ml 75932 ml # Voids 1 # Bowel Movements 1 Exam General: Alert, Oriented X3, Cooperative, Mild Distress Mouth: Mucous Membr Moist/[place] Chest & Lungs: Clear to auscultation & percussion Cardiovascular: Regular Rate/Rhythm, No Murmurs/Rubs/Gallops Abdomen: mildly Tender, Non-distended. IVs and Medications Medications Reviewed: Medications were reviewed in detail Lab and Diagnostics Result Diagram: 09/19/1682909/19/16 0830 X-Rays, CTs and MRIs PROCEDURE: CT ABDOMEN AND PELVIS WITH CONTRAST ([id number]) IMPRESSION: 1. Small amount of nonspecific intraperitoneal free fluid in the right paracolic gutter and subhepatic space redemonstrated, similar to the prior study. No loculated abscess collection identified. 2. No evidence of pyelonephritis, hydronephrosis, or perinephric abscess. 12-lead ECG V-paced EKG with no acute St changes. 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 #Vegetation of cardiac pacemaker #Corynebacterium bacteremia, POA, active. unclear source, possibly contaminant, perihepatic fluid, infected PPM, 2/8 bottles grew Corynebacterium on 09/12 and . Limited Echo shows no significant change from the previous echo. No evidence of vegetations. - WBC trending down. Procalcitonin is slightly up at 1.74 from 1.28. Continue to trend, serial BCX 09/14, 09/16 remained ngtd - Appreciate Dr. Ambrose's input. Will continue with Vancomycin . - Given findings of echocardiogram prolonged antibiotic therapy certainly necessary until device removal - Case has been presented to tailor fitter at [facility] (Dr Wild discussed with our Dr Newton) who has accepted patient, plan transfer for tomorrow in anticipation of procedure to remove pacemaker early next week. # DKA in the setting of Brittle [id number], POA, resolved. Patient presented with abdominal pain, nausea, and vomiting on admission. Patient's BG rapidly increased from 125 at admission to 1046. Blood gas reveald pH 6.9 and Bicarb of 3.5. Large serum ketone. Lactic acid of 5.2. Anion gap of 33. - DKA protocol with insulin drip was discontinued. - Pt is clinically improved. replete K,Mg as needed. - Insulin regimen as below. # RLQ Abdominal Pain, POA, unclear etiology. CT abdo is equivocal, a small amount of nonspecific intraperitoneal free fluid in the right paracolic gutter and subhepatic space redemonstrated, similar to the prior study. No loculated abscess collection identified. Possibly due to progressing DKA. However, no other evidence of infections. Repeat US 09/17 showed minimal perihepatic fluid, unclear if this is related to her pain, could be from scar tissue as Patient also has a history of endometriosis and large uterine fibroids. She is s/p right oophorectomy and appendectomy although pt thinks this is new onset. There is possibility of drug seeking as well. -pt remained clinically stable. -Pain improved control with restarting of morphine therapy. chronic, stable Systolic CHF, chronic, stable. - Last Echo in June 2016 showed EF to be 25-30%. Limited Echo shows no change. - No signs or symptoms of fluid overload or decompensation. - Continue home spironolactone, Lisinopril, and Metoprolol. Will also resume Lasix today. - Closely monitor I/Os Type I diabetes mellitus with diabetic polyneuropathy, uncontrolled. - Patient is a brittle diabetic who is fairly uncontrolled. A1c at the last visit was 11.1. - Her morning BG has been elevated. Will increase Lantus from 25 to 30 units HS and continue 20 units in the morning. - Continue high correctional scale. - Outpatient follow up with Dr.Miller Berry already scheduled for next month CAD of a [place] artery, POA - Stable, no anginal symptoms on admission - Continue home medications: Lipitor, Lisinopril, and ASA. - Patient is also on Eliquis for PEs. Continue Eliquis. Complete heart block s/p pacemaker, POA - V-paced, stable - Placed on Telemetry for CV monitoring Chronic Mood Disorders, POA - History of PTSD, DAISY, and Depression - will continue Amitriptyline 25 mg takes 2-4 tablets by mouth at bedtime, Ativan 1 mg QID PRN - We will continue Venlafaxine ER 150 mg daily . Dyslipidemia, chronic. - Continue Atorvastatin 80 mg tablet daily Chronic pain disorder, POA - Secondary to degenerative disease of Lumbars - Currently has IV morphine for pain management. Wi Hypothyroidism with history of Graves' disease - TSH 4.8 with a low T4 of 0.65. Patient takes Levothyroxine 250 g daily at home. - Will increase to 275mcg. - Check TSH in 6-8 weeks as outpatient. Chronic GERD - Continue Pantoprazole 40 mg 2 times daily. dispo: Pending transfer to [facility] cardiology dept. Pain Evaluation: Adequate Pain Control GI Prophylaxis: Proton Pump Inhibitor VTE Prophylaxis: Other VTE Mechanical Devices: Intermittant Pneumatic CD Resuscitation Status: CPR: Attempt Resuscitation Time spent 30 minutes Genaro Day DO Sep 21, 2016 17:10
[2016-09-21 20:01] VITALS: BP 118/75; PULSE 78; RESP 20; O2SAT 97
[2016-09-22] MEDS: Sodium Chloride LOK Flush 10 mL Syringe IVFLUSH SCH ×2 (00:54→09:18)
[2016-09-22 01:17] VITALS: BP 123/83; PULSE 72; RESP 20; O2SAT 98
[2016-09-22] MEDS: 0.9% Sodium Chloride 1,000 ML IV SCH ×2 (03:27→13:15)
[2016-09-22] MEDS: Vancomycin Inj 1,000 MG in IV Premix 1 EACH IV SCH ×2 (04:27→12:31)
[2016-09-22 04:55] VITALS: BP 116/71; PULSE 82; RESP 17; O2SAT 97
[2016-09-22 06:11] LABS: BASOPHILS % (AUTO) 0.8 % (0-3); MONOCYTES % (AUTO) 12.7 % (4-12); Mean Corpuscular Hemoglobin 29.2 pg (27.0-35.0); Mean Corpuscular Volume 91.1 fL (81-100); NEUTROPHILS % (AUTO) 60.1 % (40-74); Platelet Count 208 bil/L (150-400)
--- NOTE | 2016-09-22 06:24 | NUR ---
pain / NOC Patient reports pain to abdomen / Right upper chest area. PRN morphine given [id number] thru the night. Anticipate d/c to Cardiology today. CTM for changes.
[2016-09-22] MEDS: Nystatin 100,000 Unit/Gm 15 Gm Powder TOPICAL SCH (08:07)
[2016-09-22] MEDS: Venlafaxine XR 75 mg ER24 Capsule PO SCH (08:08)
[2016-09-22] MEDS: MeTOProlol XL 50 mg ER24 Tablet PO SCH (08:08)
[2016-09-22] MEDS: Pantoprazole 40 mg ER24 Tablet PO SCH (08:08)
[2016-09-22] MEDS: Insulin LISPRO 300 Unit/3 mL Inj SUBQ SCH ×2 (08:10→11:51)
[2016-09-22] MEDS: Vancomycin Dose per Pharmacist XX SCH (08:30)
[2016-09-22] MEDS ORDERED: Insulin GLARgine 100 Unit/mL Syringe SUBQ SCH (08:30)
[2016-09-22] MEDS ORDERED: Vancomycin Serum Trough XX ONE (12:00)
--- NOTE | 2016-09-22 12:45 | PCM.PHAPRO ---
Progress abd pain w/ n/v VANCOMYCIN DOSING PER PHARMACY Labs: Trough: 16.9 WBC 6.6 SCr: 0.53 P: Will continue vancomycin 1000mg q8h Will order additional trough for 09/24 @ 1200 Pharmacy will continue to follow, thank you Ifrah Hernández PharmD Sep 22, 2016 12:45
--- NOTE | 2016-09-22 14:13 | PCM.DC.MED ---
Discharge Summary Date of Service Sep 22, 2016 Dates of Hospitalization Date of Hospital Admission Sep 12, 2016 at 21:17 Date of Discharge: Sep 22, 2016 Providers: Admitting Physician: Elizabeth Juan MD Primary Care Physician: Arielle Aguilar DO Attending Physician: Genaro Day DO Diagnosis at Time of Discharge Diagnosis at Time of Discharge #Vegetation of cardiac pacemaker #Corynebacterium bacteremia, Consultations Infectious Disease, Dr Saloni Guiterrez Cardiology, Dr Alexis Johnson, Dr Susana Newton Procedures XRay, CTs & MRIs PROCEDURE: CT ABDOMEN AND PELVIS WITH CONTRAST ([id number]) IMPRESSION: 1. Small amount of nonspecific intraperitoneal free fluid in the right paracolic gutter and subhepatic space redemonstrated, similar to the prior study. No loculated abscess collection identified. 2. No evidence of pyelonephritis, hydronephrosis, or perinephric abscess. ECG 12 Lead V-paced EKG with no acute St changes. Other Diagnostics [address] [address] Echocardiogram Report Name: KAYLEE TURNER MStudy Date: 0 09/20/2016 Height: 64 in Hospital Exam Location: [facility] Weight: 207 lb Gender: Female BSA: 2.0 m2 : 1980 Age: 36 yrs BP: 104/68 mmHg Reason For Study: Endocarditis Ordering Physician: Performed By: Nuria Tay Referring Physician: SALONI GUTIERREZ Interpretation Summary Left ventricular systolic function is moderate to severely reduced. The ejection fraction is estimated to be 30-35%. In the right atrium, there are multiple echogenic structures which have independent oscillation. All of these filamentous masses are attached to atrial lead and possible RV lead. However there a larger mass (1.2 x 1.6 cm) that appears to be more globular than filamentous at the IVC and atrial junction which makes this more suspicious for thrombus rather than a vegetative mass. Recommend ordering ultrasound imaging to further delineate this. Given the positive blood cultures and findings on today's AJIT, multiple masses in right atrial chamber are most consistent with vegetations but cannot exclude possible thrombus at the IVC and right atrial junction. Findings were discussed with Dr. Del Valle and Dr. Gutierrez. 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 She was recently admitted to this hospital approximately 1 week ago for a liver cyst, which was aspirated. Upon discharge, patient reports she was doing ok until yesterday afternoon. She reports feeling somewhat nauseous after dinner and then eventually vomited up her meal. She states her nausea and vomiting became progressively worse, to the point that she was not able to keep fluids down. She noted that later in the night, she started having crampy RLQ abdominal pain again. She also endorses mild headache, lightheadedness, and acid reflux like symptoms. Her symptoms continued through the following day and has not improved. No one else at home has similar symptoms either. She reports checking her sugars, which was generally in the 80s and 90s, but did go all the way down to 50 once. She reports eating a popsicle to try and get her sugar up, then she went to the ER. Throughout the episode, she denied any fever/chills, diarrhea, CP, SOB, melena, or hematochezia. She reports she did have a regular BM yesterday and her abdominal pain has not been severe enough that she needed to take her Morphine. She is currently on the 5th day of her menstrual cycle. She reports irregular cycles since she had her right oophorectomy when she was a teenager due to multiple cysts. In the ER, she was mildly tachycardic but afebrile and normotensive She was CMP that showed mildly elevated alkaline phosphatase of 217, but was otherwise benign Her CBC was still pending and patient was not able to give a urine yet due to decreased urination She did have a CT of her abdomen and pelvis which noted small amount of fluid in the right colic gutter, which was similar to prior studies. She was admitted for observation due to intractable nausea and vomiting" Hospital Course #Vegetation of cardiac pacemaker #Corynebacterium bacteremia, POA, active. unclear source, possibly contaminant, perihepatic fluid, infected PPM, 2/8 bottles grew Corynebacterium on 09/12 and . Limited Echo shows no significant change from the previous echo. No evidence of vegetations. - WBC trending down. Procalcitonin is slightly up at 1.74 from 1.28. Continue to trend, serial BCX 09/14, 09/16 remained ngtd - Appreciate Dr. Gutierrez's input. Will continue with Vancomycin pending resolution . - Given findings of echocardiogram prolonged antibiotic therapy certainly necessary until device removal - Case was presented to personal care assistant at [facility] (Dr Wild discussed with our Dr Newton) who accepted patient, plan transfer arranged for expectant surgical intervention. # DKA in the setting of Brittle ghlz2CV, POA, resolved. Patient presented with abdominal pain, nausea, and vomiting on admission. Patient's BG rapidly increased from 125 at admission to 1046. Blood gas revealed pH 6.9 and Bicarb of 3.5. Large serum ketone. Lactic acid of 5.2. Anion gap of 33. - DKA protocol with insulin drip was discontinued. - Pt is clinically improved. replete K,Mg as needed. - Insulin regimen as below. Now stabilized though blood sugars remained intermittently elevated. RX'd with Lantus 10U and Sliding scale insulin (Lispro ) with additionally 4U mealtime on discharge. # RLQ Abdominal Pain, POA, unclear etiology. CT abdo is equivocal, a small amount of nonspecific intraperitoneal free fluid in the right paracolic gutter and subhepatic space redemonstrated, similar to the prior study. No loculated abscess collection identified. Possibly due to progressing DKA. However, no other evidence of infections. Repeat US 09/17 showed minimal perihepatic fluid, unclear if this is related to her pain, could be from scar tissue as Patient also has a history of endometriosis and large uterine fibroids. She is s/p right oophorectomy and appendectomy although pt thinks this is new onset. There is possibility of drug seeking as well. -pt remained clinically stable. chronic, stable Systolic CHF, chronic, stable. - Last Echo in June 2016 showed EF to be 25-30%. Limited Echo shows no change. - No signs or symptoms of fluid overload or decompensation. - Continue home spironolactone, Lisinopril, and Metoprolol. Will also resume Lasix prior to transfer - Closely monitor I/Os Type I diabetes mellitus with diabetic polyneuropathy, uncontrolled. - Patient is a brittle diabetic who is fairly uncontrolled. A1c at the last visit was 11.1. - Her morning BG has been elevated. Will increase Lantus from 25 to 30 units HS and continue 20 units in the morning. - Continue high correctional scale. - Outpatient follow up with Dr.Miller Berry already scheduled for next month CAD of a barrow artery, POA - Stable, no anginal symptoms on admission - Continue home medications: Lipitor, Lisinopril, and ASA. - Patient is also on Eliquis for PE in past, was continued. Transition to Heparin likely prior to surgical procedure. Complete heart block s/p pacemaker, POA - V-paced, stable - Placed on Telemetry for CV monitoring Chronic Mood Disorders, POA - History of PTSD, DAISY, and Depression - will continue Amitriptyline 25 mg takes 2-4 tablets by mouth at bedtime, Ativan 1 mg QID PRN - We continued Venlafaxine ER 150 mg daily . Dyslipidemia, chronic. - Continue Atorvastatin 80 mg tablet daily Chronic pain disorder, POA - Secondary to degenerative disease of Lumbars - Currently has IV morphine for pain management. Palnning to ween as tolerated, pt has been resistent siting acute chest/abdominal pains Hypothyroidism with history of Graves' disease - TSH 4.8 with a low T4 of 0.65. Patient takes Levothyroxine 250 g daily at home. - Will increase to 275mcg. - Check TSH in 6-8 weeks as outpatient. Chronic GERD - Continue Pantoprazole 40 mg 2 times daily. Exam Vital Signs (Last) Date Time Temp Pulse Resp B/P Pulse Ox O2 Delivery O2 Flow Rate FiO2 09/22/16 11:53 80 09/22/16 04:55 36.4 17 116/71 97 Room Air 09/20/16 13:45 3.00 Exam General: Alert, Oriented X3, Cooperative, Mild Distress Mouth: Mucous Membr Moist/Alcova Chest & Lungs: Clear to auscultation & percussion Cardiovascular: Regular Rate/Rhythm, No Murmurs/Rubs/Gallops Abdomen: mildly Tender, Non-distended. Test 09/12/16 19:20 09/12/16 23:34 09/13/16 00:05 09/13/16 09:10 Lipase 11U/L (13-60) Human Chorionic Gonadotropin, Qual Negative (Negative) Digoxin Level < 0.3nG/mL (0.9-2.0) Erythrocyte Sedimentation Rate 56mm/hr (0-32) C-Reactive Protein 1.2mg/dL (0.0-0.5) Urine Color Yellow (YELLOW) Urine Appearance Clear (CLEAR,HAZY) Urine pH 5.5 (5.0-8.0) Urine Specific Gap 1.010 (1.003-1.035) Urine Protein Negativemg/dL (NEG,TRACE) Urine Glucose (UA) >1000mg/dL (NEGATIVE) Urine Ketones >80mg/dL (NEGATIVE) Urine Occult Blood Large (NEGATIVE) Urine Nitrite Negative (NEGATIVE) Urine Bilirubin Negative (NEGATIVE) Urine Urobilinogen Normalmg/dL (NORMAL) Urine Leukocyte Esterase Negative (NEGATIVE) Urine RBC 11-50/hpf (0-2) Urine WBC 0-5/hpf (0-5) Urine Epithelial Cells Moderate/hpf (NONE-MOD) Urine Crystals None seen (NONE SEEN) Urine Bacteria Few/hpf (NONE-FEW) Urine Hyaline Casts Occasional/lpf (NONE) Urine Granular Casts None seen (NONE SEEN) Urine Waxy Casts None seen (NONE SEEN) Urine Red Blood Cell Casts None seen (NONE SEEN) Urine White Blood Cell Casts None seen (NONE SEEN) Urine Mucus None seen (None Seen) Urine Trichomonas None seen (NONE SEEN) Urine Yeast None (NONE SEEN) Urinalysis Comment None Urine Culture Reflexed Not indicated Osmolality 358 (275-300) Troponin T 0.010ug/L (0.0-0.011) Thyroid Stimulating Hormone (TSH) 4.830uIU/mL (0.450-4.500) Free Thyroxine 0.65ng/dL (0.82-1.77) Ketones Large (Negative) Test 09/13/16 09:30 09/13/16 15:50 09/14/16 02:00 09/15/16 04:55 D-Dimer 5.84mg/L FEU (<0.50) Lactic Acid Level 1.4mmol/L (0.4-2.0) Miscellaneous Test see comment Phosphorus Level 1.5mg/dL (2.5-4.9) Test 09/16/16 10:10 09/19/16 08:30 09/20/16 07:48 09/22/16 05:50 Total Bilirubin 0.2mg/dL (0.0-1.2) Aspartate Amino Transf (AST/SGOT) 19U/L (0-50) Alanine Aminotransferase (ALT/SGPT) 12U/L (0-32) Alkaline Phosphatase 202U/L (25-150) Total Protein 5.9g/dL (6.4-8.4) Albumin 3.0g/dL (3.4-5.0) Magnesium Level 1.9mg/dL (1.6-2.6) Procalcitonin 0.14ng/mL (0.00-0.08) Prothrombin Time 10.1sec (8.1-12.5) Prothromb Time International Ratio 0.95ratio Activated Partial Thromboplast Time 23.6sec (22.8-33.0) White Blood Count 6.6th/mm3 (3.8-10.1) Red Blood Count 3.59mil/mm3 (3.90-5.20) Hemoglobin 10.5g/dL (12.0-15.6) Hematocrit 32.7% (35.0-46.0) Mean Corpuscular Volume 91.1fL (81-100) Mean Corpuscular Hemoglobin 29.2pg (27.0-35.0) Mean Corpuscular Hemoglobin Concent 32.1% (32.0-37.0) Red Cell Distribution Width 15.7% (12.3-15.4) Platelet Count 208bil/L (150-400) Neutrophils (%) (Auto) 60.1% (40-74) Lymphocytes (%) (Auto) 22.9% (14-46) Monocytes (%) (Auto) 12.7% (4-12) Eosinophils (%) (Auto) 2.0% (0-5) Basophils (%) (Auto) 0.8% (0-3) Sodium Level 137mEq/L (134-144) Potassium Level 5.7mEq/L (3.5-5.2) Chloride Level 100mEq/L (97-108) Carbon Dioxide Level 24mmol/L (18-29) Blood Urea Nitrogen 12mg/dL (6-20) Creatinine 0.53mg/dL (0.57-1.00) Estimat Glomerular Filtration Rate 185mL/min (>59) Glucose Level 280mg/dL (60-99) Calcium Level 8.5mg/dL (8.5-10.1) Test 09/22/16 11:36 Vancomycin Level Trough 16.9mcg/mL Discharge Medications Discharge Medications Amitriptyline (Amitriptyline) 25 Mg Tab 50-100 MG PO HS (Reported) Aspirin Chew (Aspirin Chew) 81 Mg Chew 81 MG PO QAM (Reported) Atorvastatin (Lipitor) 80 Mg Tablet 80 MG PO HS (Reported) Digoxin (Digoxin) 250 Mcg Tablet 0.25 MG PO DAILY@12 Prescribed by: XENIA VELEZ DO Furosemide (Lasix) 80 Mg Tablet 80 MG PO DAILY Prescribed by: XENIA VELEZ DO Insulin Aspart (NovoLOG U-100 Pen) 100 Unit/Ml Insuln.pen 1-10 UNITS SQ ASDIRECTED (Reported) PER SLIDING SCALE Insulin Glargine (Lantus U100 Insulin Vial) 100 Unit/Ml Vial 25 UNIT SUBQ QAM ( Reported) TAKE LANTUS 15 UNITS IN AM AND 20 UNITS AT HS Insulin Glargine (Lantus U100 Insulin Vial) 100 Unit/Ml Vial 20 UNIT SUBQ HS ( Reported) TAKE LANTUS 25 UNITS IN AM AND 20 UNITS AT HS Levothyroxine (Levothyroxine) 200 Mcg Tablet 250 MCG PO DAILY (Reported) Lisinopril (Lisinopril) 20 Mg Tablet 20 MG PO QAM (Reported) Metoprolol Succinate ER (Metoprolol Succinate ER) 100 Mg Tab.er.24h 100 MG PO BID (Reported) Pantoprazole DR (Pantoprazole DR) 40 Mg Tablet.dr 40 MG PO BIDWM (Reported) Spironolactone (Spironolactone) 25 Mg Tablet 12.5 MG PO DAILY Prescribed by: XENIA VELEZ DO Venlafaxine ER (Venlafaxine ER) 150 Mg Tab.er.24 150 MG PO QAM (Reported) As needed Apixaban (Eliquis) 5 Mg Tablet 5 MG PO DIRECTED PRN PRN DVT 2 tablets twice per day 10 days, then 1 tablet twice per day indefinitely. Prescribed by: SEBLE LEONARDO MD Cyclobenzaprine (Cyclobenzaprine) 10 Mg Tablet 10 MG PO TID PRN PRN Spasm ( Reported) Lorazepam (Ativan) 1 Mg Tablet 1 MG PO QID PRN PRN For Anxiety (Reported) Morphine Sulfate (Morphine Sulfate) 15 Mg Tablet 15 MG PO Q4H PRN PRN For Moderate Pain Prescribed by: JUSTIN GREGORY MD Sennosides (Senna) 8.6 Mg Tablet 17.2 MG PO BID PRN PRN For Constipation Prescribed by: JUSTIN GREGORY MD Followup Plan Disposition: Transfer to [facility] Cardiology service Follow-up plan Pending further in patient care Genaro Day DO Sep 22, 2016 14:13
--- NOTE | 2016-09-22 14:17 | PCM.DIMED ---
Discharge Instructions Date of Service Sep 22, 2016 Dates of Hospitalization Sep 12, 2016 at 21:17 Discharge Diagnosis Discharge Diagnosis #Vegetation of cardiac pacemaker #Corynebacterium bacteremia, Patient Instructions Follow-up plan Pending further care and recommendation following treatment at [facility] Genaro Day DO Sep 22, 2016 14:17
--- NOTE | 2016-09-22 14:52 | NUR ---
Social Work: Discharge / Multidisciplinary Rounds Data: Pt is on day 10 of hospitalization. [employer] notified pt transferred to [facility]. No further d/c planning needs. Assessment: Pt who is independent at baseline, capable of self care at baseline. Plan: Pt will transfer to [facility]. No further d/c planning needs. DAYLIN Coy
[2016-09-22 15:11] VITALS: BP 130/75; PULSE 78; RESP 16; O2SAT 99
--- NOTE | 2016-09-22 15:53 | NUR ---
Discharge to : Patient transported to via BLS transport @ 155. Report called to Harriett RN @ 1500. Health information packet given to transport team. Patient alert & oriented at time of transport and no apparent distress noted. Personal belongings sent with patient.
[2016-09-24] MEDS ORDERED: Vancomycin Serum Trough XX ONE (12:00)
== END 2016-09-22 15:54 | disposition short-term general hospital (02) | DRG 206 ==
LOC: SED 17:46 → MOC 21:17 → OBSVTOIN 21:17 → PCC 09-13 06:51 → CCU 09-13 06:58 → PCC 09-14 17:57 → MPC 09-18 20:46
PROVIDERS: ADMIT Specialist; ATTEND Specialist
PROC: 4A033R1 Measurement of Arterial Saturation, Peripheral, Percutaneous Approach (ICD-10-PCS; principal; 2016-09-13)
PROC: 05HM33Z Insertion of Infusion Device into Right Internal Jugular Vein, Percutaneous Approach (ICD-10-PCS; 2016-09-13)
PROC: B543ZZA Ultrasonography of Right Jugular Veins, Guidance (ICD-10-PCS; 2016-09-13)
PROC: B24BZZ4 Ultrasonography of Heart with Aorta, Transesophageal (ICD-10-PCS; 2016-09-20)
DX: T82.7XXA Infection and inflammatory reaction due to other cardiac and vascular devices, implants and grafts, initial encounter (principal); E10.10 Type 1 diabetes mellitus with ketoacidosis without coma; R78.81 Bacteremia; I50.22 Chronic systolic (congestive) heart failure; E10.42 Type 1 diabetes mellitus with diabetic polyneuropathy; B96.89 Other specified bacterial agents as the cause of diseases classified elsewhere; I10 Essential (primary) hypertension; Z86.711 Personal history of pulmonary embolism; E05.00 Thyrotoxicosis with diffuse goiter without thyrotoxic crisis or storm; I25.10 Atherosclerotic heart disease of native coronary artery without angina pectoris; F41.8 Other specified anxiety disorders; E78.5 Hyperlipidemia, unspecified; E03.9 Hypothyroidism, unspecified; K21.9 Gastro-esophageal reflux disease without esophagitis